=== PATIENT | female | born 1940 | race Caucasian/White ===

== ENCOUNTER 2019-04-21 18:54 | Inpatient (IN) ==
[2019-04-21 19:19] LABS: Basophils % 0.3 % (0.1-2.0); Eosinophils % 0.6 % (0.1-12.0); Lymphocytes # 2.4 K/mm3 (0.7-4.5); Lymphocytes % 35.3 % (10-50); Mean Corpuscular HGB Conc 32.6 g/dL (31.8-35.4); Mean Corpuscular Volume 97.2 fl (81-99); Mean Platelet Volume 9.3 fl (7.4-10.4); Monocytes # 0.6 K/mm3 (0.1-1.0); Neutrophils # 3.8 K/mm3 (1.8-7.8); Neutrophils % 55.8 % (37.0-80.0); Platelet Count 197 K/mm3 (142-424); Red Blood Count 5.04 M/mm3 (4.20-5.40); Red Cell Distribution Width 12.9 % (11.5-17.5); White Blood Count 6.8 K/mm3 (4.8-10.8)
[2019-04-21 19:28] LABS: Anion Gap 12.9 mEq/L (5-15); Calcium 9.4 mg/dL (8.5-10.1)
--- NOTE | 2019-04-21 20:05 | Emergency Department Note ---
ED Disposition Clinical Impression: Precordial chest pain Disposition: Admitted as Observation Condition on Discharge: Good - Critical Care Critical Care Time: No Attestation: On 04/21/19, the high probability of a clinically significant, sudden or life threatening deterioration of the following system(s) required my full and direct attention, intervention and personal management. The time I documented below is in addition to time spent performing reported procedures but includes the following listed in this critical care notation. Medical Decision Making - Jorge Inquiry Pt receiving controlled substance: No Vital Signs: 04/21/19 18:57 04/21/19 21:09 Temperature 98.0 F Temperature Source Oral Pulse Rate [Right] 71 71 Respiratory Rate 18 Blood Pressure [Right Arm] 147/78 H 147/82 H Blood Pressure Mean [Right Arm] 101 103 Blood Pressure Source [Right Arm] Automatic Cuff Automatic Cuff Blood Pressure Position [Right Arm] Supine Sitting 02 Sat by Pulse Oximetry 96 96 Oxygen Delivery Method Room Air Room Air - Lab Data Lab Results 04/21/19 19:05: WBC 6.8, RBC 5.04, Hgb 16.0, Hct 49.0 H, MCV 97.2, MCH 31.7 H, MCHC 32.6, RDW 12.9, Plt Count 197, MPV 9.3, Neut % (Auto) 55.8, Lymph % (Auto) 35.3, [place] % (Auto) 8.0, Eos % (Auto) 0.6, Baso % (Auto) 0.3, Neut # (Auto) 3.8, Lymph # (Auto) 2.4, [place] # (Auto) 0.6, Eos # (Auto) 0.0, Baso # (Auto) 0.0 04/21/19 19:05: Troponin I 0.02 04/21/19 19:05: Sodium 143, Potassium 3.9, Chloride 106, Carbon Dioxide 28, Anion Gap 12.9, BUN 21 H, Creatinine 0.83, Estimated Creat Clear 38, Estimated GFR 67, Est GFR ( Amer) 81, Glucose 107 H, Calcium 9.4 Result diagrams: 04/21/19 19:05 04/21/19 19:05 Orders (Tests/Meds): ED MEDICATIONS Generic Name Dose Route Start Last Admin Trade Name Freq PRN Reason Stop Dose Admin Nicotine 21 mg 04/21/19 20:45 04/21/19 20:41 Nicoderm 21mg/24hr Patch TD 05/21/19 20:44 21 mg DAILY OLIVIA Administration Sodium Chloride 8 ml 04/21/19 21:02 Sodium Chloride 0.9% 10ml Vial IV 05/21/19 21:01 NEEDED PRN dilute famotidine Sodium Chloride 10 ml 04/21/19 21:02 Saline Flush 10ml Syringe IV 05/21/19 21:01 NEEDED PRN Maintain IV Site Discontinued Medications Generic Name Dose Route Start Last Admin Trade Name Ruiz PRN Reason Stop Dose Admin Aspirin 324 mg 04/21/19 19:11 04/21/19 19:15 Aspirin 81mg Chewable Tablet PO 04/21/19 19:12 243 mg ONCE ONE Administration Clopidogrel Bisulfate 300 mg 04/21/19 20:41 04/21/19 20:43 Plavix 300mg Tablet PO 04/21/19 20:42 300 mg ONCE ONE Administration Famotidine 20 mg 04/21/19 21:02 04/21/19 21:17 Pepcid 20mg/2ml Vial IV 04/21/19 21:03 20 mg ONCE ONE Administration Nitroglycerin 0.4 mg 04/21/19 19:11 04/21/19 19:15 Nitrostat 0.4mg Sl Tablet SL 04/21/19 19:12 1 tab ONCE ONE Administration ORDERS Category Date Time Status Chest XR 2 view (NOT portable) [XR chest 2V] Stat Exams 04/21/19 19:09 Taken - Radiology Data #1 Image(s): Chest Image Reviewed: Yes I reviewed the patient's radiology image COPD, nad - ECG Data Tracing #1 EKG interpreted by Eze Collins MD: Rhythm: sinus Rate: 77 Loco: normal Ectopy: none Conduction: normal ST Segment Changes: none T Wave Changes: none Q Waves: none No evidence of acute ischemia or injury - Physician Consults Physician Consulted: Kwame Time: 20:30 Reason -: Admission Comment/Response: Agrees to admit the patient to the hospital. We discussed the patient's clinical information, including history, exam, laboratory and radiology results and ED course. Per hospital procedure, I will write temporary bridge inpatient orders on the patient. Specific orders requested by the admitting physician: Consult cardiology Additional Consult: Everett Time: 20:35 Reason -: Cardiology Eval/Care Comment/Response: Plavix 300 mg. Continue statin and B-zackery. Aspirin (given). Will likely cath tomorrow. General Adult HPI - General Chief complaint: Chest Pain Stated complaint: Chest Pain Time Seen by Provider: 04/21/19 20:00 Mode of Arrival: Ambulatory Limitations: No Limitations Description of Symptoms (Recalled from ER Triage Doc. by RN): Pt states she started having chest pain this morning, radiating down left arm - History of Present Illness HPI narrative: Patient complains of 2 episodes of chest pain today. The first 1 was present when she awoke at 615 this morning and lasted until about 9. She says she laid down on the bed and it felt like "something went through my head just for 1 second" and then the discomfort went away and she felt fine all day until about 5:00. She had onset of chest pain down her left arm at that time which persisted until she arrived here and was given nitroglycerin by nursing staff. Pain resolved with nitroglycerin and she is currently pain-free. She did not have shortness of breath, nausea, or diaphoresis. She says that she has had 2 heart catheterizations in the past. The most recent was 3 years ago at [facility] and she says it was "clear". She does not have any known heart disease. She does have hypertension, hyperlipidemia, and is a smoker. Father of heart problems. She has had a carotid endarterectomy years ago. States that she has a history of anxiety and is on Xanax and BuSpar. Took Xanax for both episodes and took an 81 mg aspirin this evening as well. - Related Data Home Medications Medication Instructions Recorded Confirmed ALPRAZolam [Xanax 0.25mg tab] 0.25 mg PO TIDP PRN 04/21/19 04/21/19 Albuterol Sulfate [Proair Hfa 2 puffs IH Q4HP PRN 04/21/19 04/21/19 90mcg/puff Inh] Amlodipine Besylate [Amlodipine 5 mg PO DAILY 04/21/19 04/21/19 5mg tab] Atorvastatin Calcium [Atorvastatin 10 mg PO QODHS 04/21/19 04/21/19 10mg Tab] Buspirone HCl [Buspar 5mg tablet] 5 mg PO TID 04/21/19 04/21/19 Gabapentin [Gabapentin 100mg Cap] 100 mg PO HS 04/21/19 04/21/19 Losartan Potassium 50 mg PO DAILY 04/21/19 04/21/19 Montelukast Sodium [Singulair 10mg 10 mg PO PM 04/21/19 04/21/19 tablet] Nebivolol HCl [Bystolic] 5 mg PO DAILY 04/21/19 04/21/19 raNITIdine HCl [Ranitidine HCl] 150 mg PO BID 04/21/19 04/21/19 Allergies Allergy/AdvReac Type Severity Reaction Status Date / Time beef derived (bovine) Allergy Verified 04/21/19 19:09 Penicillins Allergy Verified 04/21/19 19:09 yogart Allergy Uncoded 04/21/19 19:09 [facility] History - Hepatitis A Screen Drug use history?: No High risk sexual behaviors?: No History of sexually transmitted infection?: No Currently employed?: No Childcare worker?: No Do you have indoor plumbing?: Yes Do you have electricity?: Yes Attestation statement:: This patient has been screened for Hepatitis A risk factors. I have reviewed the patient's past medical history: Yes Medical History: Reports:: Carotid Stenosis, Hyperlipidemia, Hypertension Denies:: Diabetes Mellitus Type 1, Diabetes Mellitus Type 2, Internal Pacemaker Laterality Cases: Right: Carpal Tunnel Release Other Surgeries: No: Pacemaker - Social History Smoking Status: Current every day smoker Tobacco Type: cigarettes # Packs/Day (cigarettes): 1 Alcohol Intake: never Occupational Status: retired Family Hx:: Heart Attack ROS Obtained: Yes All systems reviewed & no additional complaints - Constitutional Constitutional: Denies fever(s) - Cardiovascular Cardiovascular: Reports system reviewed and no additional complaints, except as docu, Denies diaphoresis, Reports radiating jaw, neck or arm pain - Respiratory Respiratory: No dyspnea - Gastrointestinal Gastrointestingal: Denies: abdominal pain, nausea, vomiting Physical Exam - General General appearance: alert, in no apparent distress - Head Head exam: atraumatic, normocephalic - Eye Eye exam: Present: normal appearance, EOMI - ENT ENT exam: Present: normal exam, mucous membranes moist - Neck Neck exam: Present: normal inspection, trachea midline - Chest Chest inspection: Present: normal inspection, symmetric chest wall rise - Respiratory Respiratory exam: Present: normal lung sounds bilaterally. Absent: respiratory distress - Cardiovascular Cardiovascular exam: Present: regular rate, normal rhythm, normal heart sounds - Abdominal Exam Abdominal exam: Present: soft, normal bowel sounds. Absent: distention, tenderness - Extremities Exam Extremities exam: Present: normal inspection, full ROM. Absent: calf tenderness - Neurological Exam Neurological exam: Present: alert, oriented X3 - Psychiatric Psychiatric exam: Present: normal affect, normal mood - Skin Skin exam: Present: warm, dry
--- NOTE | 2019-04-21 22:29 | Progress Note ---
Internal Medicine - PN: Subj *Date: 04/21/19 *Time: 22:25 Interval history: This 79-year-old white female is admitted to [facility] after episode of chest pain. The following is the emergency room narrative by Dr. Lemus: "Patient complains of 2 episodes of chest pain today. The first 1 was present when she awoke at 615 this morning and lasted until about 9. She says she laid down on the bed and it felt like "something went through my head just for 1 second" and then the discomfort went away and she felt fine all day until about 5:00. She had onset of chest pain down her left arm at that time which persisted until she arrived here and was given nitroglycerin by nursing staff. Pain resolved with nitroglycerin and she is currently pain-free. She did not have shortness of breath, nausea, or diaphoresis. She says that she has had 2 heart catheterizations in the past. The most recent was 3 years ago at [facility] and she says it was "clear". She does not have any known heart disease. She does have hypertension, hyperlipidemia, and is a smoker. Father of heart problems. She has had a carotid endarterectomy years ago. States that she has a history of anxiety and is on Xanax and BuSpar. Took Xanax for both episodes and took an 81 mg aspirin this evening as well." The patient did admit that she had anxiety during the episode of chest pain prior to hospitalization. The history of smoking and the endarterectomy are significant points, of course, in the history. Exam Vital signs and Labs for Last 24 Hours: Temp Pulse Resp BP Pulse Ox 98.1 F 70 19 128/97 H 96 04/21/19 21:38 04/21/19 21:38 04/21/19 21:38 04/21/19 21:38 04/21/19 21:38 Laboratory Results - last 24 hr 04/21/19 19:05: WBC 6.8, RBC 5.04, Hgb 16.0, Hct 49.0 H, MCV 97.2, MCH 31.7 H, MCHC 32.6, RDW 12.9, Plt Count 197, MPV 9.3, Neut % (Auto) 55.8, Lymph % (Auto) 35.3, [place] % (Auto) 8.0, Eos % (Auto) 0.6, Baso % (Auto) 0.3, Neut # (Auto) 3.8, Lymph # (Auto) 2.4, [place] # (Auto) 0.6, Eos # (Auto) 0.0, Baso # (Auto) 0.0 04/21/19 19:05: Troponin I 0.02 04/21/19 19:05: Sodium 143, Potassium 3.9, Chloride 106, Carbon Dioxide 28, Anion Gap 12.9, BUN 21 H, Creatinine 0.83, Estimated Creat Clear 38, Estimated GFR 67, Est GFR ( Amer) 81, Glucose 107 H, Calcium 9.4 Laboratory Tests 04/21/19 04/21/19 19:05 19:05 Sodium 143 Potassium 3.9 BUN 21 H Creatinine 0.83 Troponin I 0.02 I & O for Last 24 hours: Intake & Output 04/19/19 04/20/19 04/21/19 04/22/19 11:59 11:59 11:59 11:59 Weight 113 lb 7 oz - Constitutional no acute distress (Comfortable at the time of exam.) - *Routine HEENT Exam Head: Present: normocephalic Eye: Present: PERRL ENT: Present: mucous membranes dry (Tongue is coated) - *Routine Neck Exam Present: carotid bruit (On the right, and scar is present) - Routine Chest/Breast/Axilla Exam Chest wall: Absent: tenderness - *Routine Respiratory Exam Present: rales (Some bibasilar rales are noted. Air movement is good) - *Routine Cardiovascular Exam Present: RRR (No ectopics). Absent: murmur - *Routine Abdominal Exam Present: soft. Absent: tenderness - *Routine Extremities Exam Absent: edema - *Routine Neurological Exam Present: alert, oriented X3 Assessment and Plan (1) Arteriosclerotic cardiovascular disease Current visit: Yes Status: Acute Category: Medical Code(s): I25.10 - Atherosclerotic heart disease of [place] coronary artery without angina pectoris (2) Status post carotid endarterectomy Current visit: Yes Status: Acute Category: Surgical Code(s): Z98.890 - Other specified postprocedural states (3) Tobacco abuse Current visit: Yes Status: Acute Category: Medical Code(s): Z72.0 - Tobacco use (4) Anxiety disorder Current visit: Yes Status: Acute Category: Medical Code(s): F41.9 - Anxiety disorder, unspecified - Assessment and plan all Dx Assessment and Plan for all problems:: See orders. Cardiology consult tomorrow.
--- NOTE | 2019-04-22 07:23 | Pharmacy Consult Notes ---
[facility] Pharmacy VTE Monitoring - Patient Demographics Admission date: 04/21/19 Report Date: 04/22/19 Time: 07:23 Allergies/Adverse Reactions: Patient Allergies beef derived (bovine) Allergy (Verified 04/21/19 19:09) Penicillins Allergy (Verified 04/21/19 19:09) yogart Allergy (Uncoded 04/21/19 19:09) Height: 1.65 m Weight: 52.163 kg Patient Problems: Current Active Problems Precordial chest pain (Acute) Arteriosclerotic cardiovascular disease (Acute) Status post carotid endarterectomy (Acute) Tobacco abuse (Acute) Anxiety disorder (Acute) - VTE Risk Labs: VTE Related Lab Results Hgb 16.0 g/dL (12.2-16.2) 04/21/19 19:05 Hct 49.0 % (37.0-47.0) H 04/21/19 19:05 Plt Count 197 K/mm3 (142-424) 04/21/19 19:05 BUN 21 mg/dL (7-18) H 04/21/19 19:05 Creatinine 0.83 mg/dL (0.55-1.02) 04/21/19 19:05 Estimated Creat Clear 38 mL/min (50-200) 04/21/19 19:05 Was VTE Risk Assessment Performed: Yes VTE Score: 2 VTE Risk Level: Very Low Risk Clinical Trial Participant: No - Prophylaxis VTE Prophylaxis Ordered?: Yes Types of VTE Prophylaxis: TEDS Knee High Location of Applied Device: Bilateral Lower Extremeties
--- NOTE | 2019-04-22 08:37 | History & Physical Report ---
*Admission Date: 04/21/19 *Chief complaint: chest pain, palpitations, syncope *History of present illness: Ms. Banks is a 79-year-old female with a history of hypertension, anxiety, IBS, and carotid artery stenosis. She states she has had an irregular heartbeat since she was young and has frequent palpitations. She states yesterday a.m. around 6:00, she began feeling her heart beat irregularly and had a very short syncopal episode. She does have a history of anxiety and took a Xanax and tried to breathe deeply. She states this seemed to help and her heart rhythm returned to normal. She states around 5 PM yesterday evening, she began having left- sided chest pain that radiated into her shoulder and up her neck. She presented to the emergency room for further evaluation and was given nitroglycerin. The chest pain resolved with the nitroglycerin and has not returned. She still has ongoing left shoulder pain. She denies any nausea or diaphoresis. She was short of breath during the episode. She does not have any known coronary disease but she does have hypertension, hyperlipidemia, and is a smoker. Her father did of a heart attack. She had a carotid endarterectomy on the right years ago. [facility] History I have reviewed the patient's past medical history: Yes Medical History: Reports:: Anxiety, Carotid Stenosis, Hyperlipidemia, Hypertension Denies:: Cancer, Diabetes Mellitus Type 1, Diabetes Mellitus Type 2, Internal Pacemaker, MRSA *Have you ever received a pneumonia vaccine?: Yes *Have you received a flu vaccine this season?: No Other Medical History: Reports: Arthritis (bilateral lower extremities, back), Hoarseness, Hormone Therapy (1976 - 1998), Sinus Problems ([place] Allergies), Other (IBS) Laterality Cases: Right: Carpal Tunnel Release Other Surgeries: Yes: Cholecystectomy, Hysterectomy-Total, Other (Right caratoid endarterectomy, rectocele, cystocele). No: Pacemaker Amputation: No Fractures: Yes (Left Rib) - *Social History Educational Level: Attended High School Smoking Status: Current every day smoker Tobacco Type: cigarettes # Packs/Day (cigarettes): 1 Alcohol Intake: never *Occupational Status:: retired Housing: house *Travel in the last 8 weeks: None Family Hx:: Diabetes, Heart Attack, Hypertension Review of Systems - Constitutional Denies chills, Denies fever(s), Denies weakness - Eyes Denies blurry vision, Denies double vision - ENT Reports sore throat, Denies nasal congestion - *Cardiovascular Reports chest pain, Reports shortness of breath, Reports irregular heart rhythm, Reports radiating jaw, neck or arm pain - *Respiratory Reports shortness of breath, Denies cough - *Gastrointestinal Reports abdominal pain (IBS, chronic), Reports loose stools, Denies nausea, Denies vomiting - *Genitourinary Denies difficulty urinating, Denies painful urination - *Musculoskeletal Reports joint pain (left shoulder) - *Neurologic Reports headache(s), Reports fainting, Denies dizziness, Denies weakness Meds Home Medications Medication Instructions Recorded Confirmed Type ALPRAZolam [Xanax 0.25mg tab] 0.25 mg PO TIDP PRN 04/21/19 04/21/19 History Albuterol Sulfate [Proair Hfa 2 puffs IH Q4HP PRN 04/21/19 04/21/19 History 90mcg/puff Inh] Amlodipine Besylate [Amlodipine 5 mg PO DAILY 04/21/19 04/21/19 History 5mg tab] Atorvastatin Calcium [Atorvastatin 10 mg PO QODHS 04/21/19 04/21/19 History 10mg Tab] Buspirone HCl [Buspar 5mg tablet] 7.5 mg PO TID 04/21/19 04/22/19 History Gabapentin [Gabapentin 100mg Cap] 100 mg PO HS 04/21/19 04/21/19 History Losartan Potassium 50 mg PO DAILY 04/21/19 04/21/19 History Montelukast Sodium [Singulair 10mg 10 mg PO PM 04/21/19 04/21/19 History tablet] Nebivolol HCl [Bystolic] 5 mg PO HS 04/21/19 04/22/19 History raNITIdine HCl [Ranitidine HCl] 150 mg PO BID 04/21/19 04/21/19 History Allergies Allergy/AdvReac Type Severity Reaction Status Date / Time beef derived (bovine) Allergy Verified 04/21/19 19:09 Penicillins Allergy Verified 04/21/19 19:09 yogart Allergy Uncoded 04/21/19 19:09 Exam Vital signs and Labs for Last 24 Hours: Temp Pulse Resp BP Pulse Ox 95 F L 72 17 157/79 H 95 04/22/19 08:00 04/22/19 08:00 04/22/19 08:00 04/22/19 08:00 04/22/19 08:00 Laboratory Results - last 24 hr 04/21/19 19:05: WBC 6.8, RBC 5.04, Hgb 16.0, Hct 49.0 H, MCV 97.2, MCH 31.7 H, MCHC 32.6, RDW 12.9, Plt Count 197, MPV 9.3, Neut % (Auto) 55.8, Lymph % (Auto) 35.3, [place] % (Auto) 8.0, Eos % (Auto) 0.6, Baso % (Auto) 0.3, Neut # (Auto) 3.8, Lymph # (Auto) 2.4, [place] # (Auto) 0.6, Eos # (Auto) 0.0, Baso # (Auto) 0.0 04/21/19 19:05: Troponin I 0.02 04/21/19 19:05: Sodium 143, Potassium 3.9, Chloride 106, Carbon Dioxide 28, Anion Gap 12.9, BUN 21 H, Creatinine 0.83, Estimated Creat Clear 38, Estimated GFR 67, Est GFR ( Amer) 81, Glucose 107 H, Calcium 9.4 04/22/19 00:22: Troponin I 0.21 H 04/22/19 03:30: Troponin I 0.51 H I & O for Last 24 hours: Intake & Output 04/19/19 04/20/19 04/21/19 04/22/19 11:59 11:59 11:59 11:59 Intake Total 305 / 305 Balance 305 / 305 Weight 115 lb - Constitutional no acute distress - *Routine HEENT Exam Head: Present: normocephalic Eye: Present: EOMI, PERRL ENT: Present: mucous membranes moist - *Routine Neck Exam Present: supple. Absent: lymphadenopathy - *Routine Respiratory Exam Present: decreased breath sounds, CTA bilaterally - *Routine Cardiovascular Exam Present: RRR - *Routine Abdominal Exam Present: soft, normoactive bowel sounds. Absent: tenderness - *Routine Extremities Exam Absent: cyanosis, clubbing, edema - *Routine Skin Exam Present: warm. Absent: rash - *Routine Neurological Exam Present: alert, oriented X3 - Detailed Eye Exam Eyelids: Left normal inspection H&P: Result - Impressions CXR - Coarsening of the bronchovascular markings which may be seen with bronchitis/smoking related lung disease. Possible infiltrate right lower lobe Assessment and Plan (1) Chest pain Current visit: Yes Status: Acute Category: Medical Code(s): R07.9 - Chest pain, unspecified (2) Elevated troponin Current visit: Yes Status: Acute Category: Medical Code(s): R74.8 - Abnormal levels of other serum enzymes (3) Arteriosclerotic cardiovascular disease Current visit: Yes Status: Acute Category: Medical Code(s): I25.10 - Atherosclerotic heart disease of [place] coronary artery without angina pectoris (4) Status post carotid endarterectomy Current visit: Yes Status: Acute Category: Surgical Code(s): Z98.890 - Other specified postprocedural states (5) Tobacco abuse Current visit: Yes Status: Acute Category: Medical Code(s): Z72.0 - Tobacco use (6) Anxiety disorder Current visit: Yes Status: Acute Category: Medical Code(s): F41.9 - Anxiety disorder, unspecified - Assessment and plan all Dx Assessment and Plan for all problems:: Patient's serial troponins have been elevated. Cardiology has been consulted. Patient's chest x-ray questions a pneumonia. Will discuss possible antibiotics with Dr. Puente.
--- NOTE | 2019-04-22 09:27 | Consult Report ---
History of Present Illness Consult date: 04/22/19 Requesting physician: Nazanin Puente Consult reason: chest pain Chief complaint: chest pain Additional Medical History:: 1. Tobacco use, continued, started age 15, discontinued age 20, restarted age 30 and continues to present day. 1 pack/day 2. Carotid artery disease A. Status post right carotid endarterectomy approximately 2011, [place], [place] 3. Hypertension, treated for greater than 10 years A. Blood pressure discrepancy between right and left arm, question subclavian artery stenosis 4. Hyperlipidemia, on statin therapy 5. Family history of coronary artery disease 6. History of anxiety 7. History of diarrhea predominant irritable bowel syndrome History of present illness: Ms. Banks is a 79-year-old female with a history of hypertension, anxiety, IBS, and carotid artery stenosis. She states she has had an irregular heartbeat since she was young and has frequent palpitations. She states yesterday a.m. around 6:00, she began feeling her heart beat irregularly and had a very short syncopal episode. She does have a history of anxiety and took a Xanax and tried to breathe deeply. She states this seemed to help and her heart rhythm returned to normal. She states around 5 PM yesterday evening, she began having left- sided chest pain that radiated into her shoulder and up her neck. She presented to the emergency room for further evaluation and was given nitroglycerin. The chest pain resolved with the nitroglycerin and has not returned. She still has ongoing left shoulder pain. She denies any nausea or diaphoresis. She was short of breath during the episode. She does not have any known coronary disease but she does have hypertension, hyperlipidemia, and is a smoker. Her father did of a heart attack. She had a carotid endarterectomy on the right years ago The above per Orquidea Mcnamara PA-C for Dr. Puente Troponins overnight have returned elevated with highest of 0.51. Again, as iterated above, the patient has not had any further episodes of chest pain. She does have lingering left shoulder pain but attributes this to her known arthritis. Remote history of right carotid endarterectomy approximately 5 years ago. She does relate having 2 prior cardiac caths in the past, the last one by Dr. Chong in [place] with no significant coronary artery disease noted. She does continue to smoke 1 pack/day, she takes cholesterol medication and blood pressure medication in the form of bystolic, losartan and and Norvasc. She does relate a lot of anxiety recently due to an uncle who is dying. EKG shows sinus rhythm with nonspecific ST-T abnormalities. Manual blood pressure left arm 182/100mm Hg, right arm 154/72 mmHg. [facility] History Medical History: Reports:: Anxiety, Carotid Stenosis, Hyperlipidemia, Hypertension Denies:: Cancer, Diabetes Mellitus Type 1, Diabetes Mellitus Type 2, Internal Pacemaker, MRSA *Have you ever received a pneumonia vaccine?: Yes *Have you received a flu vaccine this season?: No Other Medical History: Reports: Arthritis (bilateral lower extremities, back), Hoarseness, Hormone Therapy (1976 - 1998), Sinus Problems ([place] Allergies), Other (IBS) Laterality Cases: Right: Carpal Tunnel Release Other Surgeries: Yes: Cholecystectomy, Hysterectomy-Total, Other (Right caratoid endarterectomy, rectocele, cystocele). No: Pacemaker Amputation: No Fractures: Yes (Left Rib) - *Social History Educational Level: Attended High School Smoking Status: Current every day smoker Tobacco Type: cigarettes # Packs/Day (cigarettes): 1 Alcohol Intake: never *Occupational Status:: retired Housing: house *Travel in the last 8 weeks: None - Psychiatric History Pschychiatric History:: Reports:: Anxiety Family Hx:: Diabetes, Heart Attack, Hypertension Meds Home Medications Medication Instructions Recorded Confirmed Type ALPRAZolam [Xanax 0.25mg tab] 0.25 mg PO TIDP PRN 04/21/19 04/21/19 History Albuterol Sulfate [Proair Hfa 2 puffs IH Q4HP PRN 04/21/19 04/21/19 History 90mcg/puff Inh] Amlodipine Besylate [Amlodipine 5 mg PO DAILY 04/21/19 04/21/19 History 5mg tab] Atorvastatin Calcium [Atorvastatin 10 mg PO QODHS 04/21/19 04/21/19 History 10mg Tab] Buspirone HCl [Buspar 5mg tablet] 7.5 mg PO TID 04/21/19 04/22/19 History Gabapentin [Gabapentin 100mg Cap] 100 mg PO HS 04/21/19 04/21/19 History Losartan Potassium 50 mg PO DAILY 04/21/19 04/21/19 History Montelukast Sodium [Singulair 10mg 10 mg PO PM 04/21/19 04/21/19 History tablet] Nebivolol HCl [Bystolic] 5 mg PO HS 04/21/19 04/22/19 History raNITIdine HCl [Ranitidine HCl] 150 mg PO BID 04/21/19 04/21/19 History Allergies Allergy/AdvReac Type Severity Reaction Status Date / Time beef derived (bovine) Allergy Verified 04/21/19 19:09 Penicillins Allergy Verified 04/21/19 19:09 yogart Allergy Uncoded 04/21/19 19:09 Review of Systems - *Cardiovascular Reports chest pain, Reports shortness of breath with activity - *Respiratory Reports shortness of breath with activity, Denies cough - *Gastrointestinal Reports abdominal pain, Reports loose stools, Denies nausea, Denies vomiting - *Genitourinary Denies blood in urine - *Musculoskeletal Reports joint pain, Reports back pain - *Neurologic Reports headache(s), Reports fainting, Denies dizziness, Denies weakness Exam Vital signs and Labs for Last 24 Hours: Temp Pulse Resp BP Pulse Ox 97.5 F L 72 17 157/79 H 95 04/22/19 09:14 04/22/19 08:00 04/22/19 08:00 04/22/19 08:00 04/22/19 08:00 Laboratory Results - last 24 hr 04/21/19 19:05: WBC 6.8, RBC 5.04, Hgb 16.0, Hct 49.0 H, MCV 97.2, MCH 31.7 H, MCHC 32.6, RDW 12.9, Plt Count 197, MPV 9.3, Neut % (Auto) 55.8, Lymph % (Auto) 35.3, [place] % (Auto) 8.0, Eos % (Auto) 0.6, Baso % (Auto) 0.3, Neut # (Auto) 3.8, Lymph # (Auto) 2.4, [place] # (Auto) 0.6, Eos # (Auto) 0.0, Baso # (Auto) 0.0 04/21/19 19:05: Troponin I 0.02 04/21/19 19:05: Sodium 143, Potassium 3.9, Chloride 106, Carbon Dioxide 28, Anion Gap 12.9, BUN 21 H, Creatinine 0.83, Estimated Creat Clear 38, Estimated GFR 67, Est GFR ( Amer) 81, Glucose 107 H, Calcium 9.4 04/22/19 00:22: Troponin I 0.21 H 04/22/19 03:30: Troponin I 0.51 H I & O for Last 24 hours: Intake & Output 04/19/19 04/20/19 04/21/19 04/22/19 11:59 11:59 11:59 11:59 Intake Total 305 / 305 Balance 305 / 305 Weight 115 lb - *Routine HEENT Exam Head: Present: normocephalic Eye: Present: EOMI, PERRL ENT: Present: mucous membranes moist - *Routine Neck Exam Present: supple, carotid bruit. Absent: JVD - *Routine Respiratory Exam Present: decreased breath sounds, diminished air movement. Absent: accessory muscle use, rales, rhonchi, wheezes - *Routine Cardiovascular Exam Present: RRR, murmur. Absent: gallop, rubs - *Routine Abdominal Exam Present: soft. Absent: tenderness, distended, guarding - *Routine Extremities Exam Absent: edema, calf tenderness - *Routine Neurological Exam Present: alert, oriented X3, moving all extremities Assessment and Plan (1) NSTEMI (non-ST elevated myocardial infarction) Current visit: Yes Status: Acute Category: Medical Code(s): I21.4 - Non-ST elevation (NSTEMI) myocardial infarction (2) Chest pain Current visit: Yes Status: Acute Category: Medical Code(s): R07.9 - Chest pain, unspecified (3) Arteriosclerotic cardiovascular disease Current visit: Yes Status: Acute Category: Medical Code(s): I25.10 - Atherosclerotic heart disease of [place] coronary artery without angina pectoris (4) Status post carotid endarterectomy Current visit: Yes Status: Acute Category: Surgical Code(s): Z98.890 - Other specified postprocedural states (5) Tobacco abuse Current visit: Yes Status: Acute Category: Medical Code(s): Z72.0 - Tobacco use (6) Anxiety disorder Current visit: Yes Status: Acute Category: Medical Code(s): F41.9 - Anxiety disorder, unspecified (7) Hypertension Current visit: Yes Status: Acute Category: Medical Code(s): I10 - Essential (primary) hypertension (8) Hyperlipidemia Current visit: Yes Status: Acute Category: Medical Code(s): E78.5 - Hyperlipidemia, unspecified (9) Cardiac murmur, unspecified Current visit: Yes Status: Acute Category: Medical Code(s): R01.1 - Cardiac murmur, unspecified - Assessment and plan all Dx Assessment and Plan for all problems:: 1. Chest pain with elevated troponins and no acute EKG changes, consistent with non-ST elevation VT. Patient was given 300 mg of Plavix along with aspirin last evening. Patient also continues on beta-zackery and Norvasc therapy. Discussed recommendation for left heart catheterization today per home. Patient and daughter agree to proceed. Risks, benefits and procedure explained. 2. We will obtain an echocardiogram to evaluate left ventricular size, function and cardiac murmur in the aortic area. 3. Will obtain bilateral carotid ultrasound due to carotid bruits and history of right carotid endarterectomy. 4. Patient relates blood pressure discrepancy with right arm lower than left (see HPI), consider peripheral angiogram of the right arm at the time of the cath to assess for subclavian artery stenosis. 5. Patient relates exertional leg fatigue with palpable but decreased pulses in the feet. Concern for peripheral arterial disease. Patient will need further evaluation in the future with ZORA and possible lower extremity angiogram. 6. Further recommendations to follow pending above results.
--- NOTE | 2019-04-22 16:47 | Cardiology Report ---
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 Laterality: Bilateral Study Quality: Good Indications: Carotid bruits, history of RCEA Risk Factors Hypertension: Hyperlipidemia Smoking Surgery/Intervention Endarterectomy: right Doppler Spectral Velocity Analysis ECA (R) 130.00/ cm/sECA (L) 235.00/ cm/s dICA (R) 51.50/16.70 cm/sdICA (L) 69.80/24.50 cm/s Ara (R) 59.60/19.20 cm/smICA (L) 144.00/34.80 cm/s pICA (R) 64.00/16.00 cm/spICA (L) 148.00/48.90 cm/s dCCA (R) 66.20/14.90 cm/sdCCA (L) 68.60/18.40 cm/s pCCA (R) 72.80/13.80 cm/spCCA (L) 70.80/12.40 cm/s Vert (R) 43.00/ cm/sVert (L) 49.60/ cm/s ICA/CCA 0.97 ICA/CCA 2.16 Conclusion Duplex evaluation demonstrates stenosis of the right proximal internal carotid artery <20% with PSV <140 cm/sec, EDV <100 cm/sec, and IC/CC Ratio <4.0. Duplex evaluation demonstrates stenosis of the left proximal internal carotid artery in the range of 50-69% with PSV =140 cm/sec, EDV <100 cm/sec, and IC/CC Ratio <4.0. Duplex evaluation demonstrates antegrade flow of the bilateral Vertebral Arteries. Right thyroidnodules. Consider dedicated thyroid ultrasound. Critical Notification Critical Value: No Electronically signed by : Maximiliano Isaac MD 04/22/2019 16:47:20
[2019-04-23 06:37] LABS: Basophils % 0.2 % (0.1-2.0); Eosinophils % 0.5 % (0.1-12.0); Hematocrit 45.3 % (37.0-47.0); Hemoglobin 15.3 g/dL (12.2-16.2); Lymphocytes # 1.1 K/mm3 (0.7-4.5); Lymphocytes % 14.4 % (10-50); Mean Corpuscular HGB Conc 33.8 g/dL (31.8-35.4); Mean Corpuscular Volume 96.2 fl (81-99); Mean Platelet Volume 8.9 fl (7.4-10.4); Monocytes # 0.6 K/mm3 (0.1-1.0); Monocytes % 8.3 % (1.7-9.3); Neutrophils # 5.8 K/mm3 (1.8-7.8); Neutrophils % 76.6 % (37.0-80.0); Platelet Count 176 K/mm3 (142-424); Red Blood Count 4.71 M/mm3 (4.20-5.40); Red Cell Distribution Width 12.8 % (11.5-17.5); White Blood Count 7.6 K/mm3 (4.8-10.8)
[2019-04-23 06:48] LABS: Anion Gap 12.8 mEq/L (5-15); Calcium 8.9 mg/dL (8.5-10.1)
--- NOTE | 2019-04-23 07:28 | Progress Note ---
Subjective Date: 04/23/19 Time: 07:24 Principal diagnosis: NSTEMI Interval history: 79-year-old white female in bed in no acute distress. Denies any chest pain, pressure or tightness. Multiple questions answered regarding results of carotid ultrasound, cardiac cath and medication changes. Exam Vital signs and Labs for Last 24 Hours: Temp Pulse Resp BP Pulse Ox 98.4 F 65 16 139/64 92 L 04/23/19 04:00 04/23/19 04:00 04/23/19 04:00 04/23/19 04:00 04/23/19 04:00 Laboratory Results - last 24 hr 04/22/19 15:44: Activated Clotting Time 320 H* 04/23/19 06:14: WBC 7.6, RBC 4.71, Hgb 15.3, Hct 45.3, MCV 96.2, MCH 32.5 H, MCHC 33.8, RDW 12.8, Plt Count 176, MPV 8.9, Neut % (Auto) 76.6, Lymph % (Auto) 14.4, [place] % (Auto) 8.3, Eos % (Auto) 0.5, Baso % (Auto) 0.2, Neut # (Auto) 5.8, Lymph # (Auto) 1.1, [place] # (Auto) 0.6, Eos # (Auto) 0.0, Baso # (Auto) 0.0 04/23/19 06:14: Sodium 141, Potassium 3.8, Chloride 106, Carbon Dioxide 26, Anion Gap 12.8, BUN 15 D, Creatinine 0.70, Estimated Creat Clear 39, Estimated GFR 81, Est GFR ( Amer) 98 D, Glucose 80, Calcium 8.9 I & O for Last 24 hours: Intake & Output 04/20/19 04/21/19 04/22/19 04/23/19 11:59 11:59 11:59 11:59 Intake Total 305 / 305 933 / 933 Output Total 700 / 700 200 / 200 Balance -395 / -395 733 / 733 Weight 115 lb 116 lb 2 oz - *Routine Respiratory Exam Present: CTA bilaterally. Absent: accessory muscle use, rales, rhonchi, wheezes - *Routine Cardiovascular Exam Present: RRR. Absent: murmur, gallop, rubs - *Routine Abdominal Exam Present: soft. Absent: tenderness, distended, guarding - *Routine Extremities Exam Absent: edema, calf tenderness - *Routine Neurological Exam Present: alert, oriented X3, moving all extremities Progress Note: A&P (1) NSTEMI (non-ST elevated myocardial infarction) Status: Acute Current Visit: Yes (2) Chest pain Status: Acute Current Visit: Yes (3) Arteriosclerotic cardiovascular disease Status: Acute Current Visit: Yes (4) Status post carotid endarterectomy Status: Acute Current Visit: Yes (5) Tobacco abuse Status: Acute Current Visit: Yes (6) Anxiety disorder Status: Acute Current Visit: Yes (7) Hypertension Status: Acute Current Visit: Yes (8) Hyperlipidemia Status: Acute Current Visit: Yes (9) Cardiac murmur, unspecified Status: Acute Current Visit: Yes Assessment and Plan for All Diagnoses:: 1. Discontinue amlodipine and switch to verapamil 180 mg daily 2. Discontinue carvedilol and resume patient's home medication of Bystolic 5 mg in the evening 3. Continue dual antiplatelet therapy with aspirin 81 mg daily and Plavix 75 mg daily due to stent placement to right subclavian artery. 4. Coronary artery disease with recommendation for medical management. 5. Non-ST elevation CO due to demand ischemia from hyperdynamic ejection fraction with tacky arrhythmias. Telemetry is revealed no tacky arrhythmias during her hospitalization. 6. Carotid artery disease, stable by ultrasound. 7. Continue losartan home dosing. 8. Continue atorvastatin but increase to 40 mg daily as tolerated. Currently patient takes only 10 mg every other day. 9. Patient can be discharged home from cardiology standpoint with follow-up in 1 to 2 weeks with plans to obtain ZORA for evaluation of PAD/claudication symptom s.
--- NOTE | 2019-04-23 08:39 | Progress Note ---
<Orquidea Mcnamara - Last Filed: 04/23/19 08:36> Internal Medicine - PN: Subj *Date: 04/23/19 *Time: 08:36 Interval history: Patient has not had any chest pain or shortness of breath. She denies any other heart palpitations. She is feeling better this morning and is anxious to go home. She did have a stent placed yesterday. Exam Vital signs and Labs for Last 24 Hours: Temp Pulse Resp BP Pulse Ox 98.6 F 69 17 168/79 H 92 L 04/23/19 08:00 04/23/19 08:00 04/23/19 08:00 04/23/19 08:00 04/23/19 08:00 Laboratory Results - last 24 hr 04/22/19 15:44: Activated Clotting Time 320 H* 04/23/19 06:14: WBC 7.6, RBC 4.71, Hgb 15.3, Hct 45.3, MCV 96.2, MCH 32.5 H, MCHC 33.8, RDW 12.8, Plt Count 176, MPV 8.9, Neut % (Auto) 76.6, Lymph % (Auto) 14.4, [place] % (Auto) 8.3, Eos % (Auto) 0.5, Baso % (Auto) 0.2, Neut # (Auto) 5.8, Lymph # (Auto) 1.1, [place] # (Auto) 0.6, Eos # (Auto) 0.0, Baso # (Auto) 0.0 04/23/19 06:14: Sodium 141, Potassium 3.8, Chloride 106, Carbon Dioxide 26, Anion Gap 12.8, BUN 15 D, Creatinine 0.70, Estimated Creat Clear 39, Estimated GFR 81, Est GFR ( Amer) 98 D, Glucose 80, Calcium 8.9 04/23/19 06:14: Triglycerides 71, Cholesterol 121 L, LDL Cholesterol 66, VLDL Cholesterol 14, HDL Cholesterol 41, Cholesterol/HDL Ratio 3.0 I & O for Last 24 hours: Intake & Output 04/20/19 04/21/19 04/22/19 04/23/19 11:59 11:59 11:59 11:59 Intake Total 305 / 305 1173 / 1173 Output Total 700 / 700 200 / 200 Balance -395 / -395 973 / 973 Weight 115 lb 116 lb 2 oz Radiology Reports for the Last 24 Hours: Carotid U/S 1. Duplex evaluation demonstrates stenosis of the right proximal internal carotid artery <20% with PSV <140 cm/sec, EDV <100 cm/sec, and IC/CC Ratio <4.0. 2. Duplex evaluation demonstrates stenosis of the left proximal internal carotid artery in the range of 50-69% with PSV =140 cm/sec, EDV <100 cm/sec, and IC/CC Ratio <4.0. 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 Successful stenting of the right subclavian artery extending back into the brachiocephalic artery severe disease reduced to 20% with one self-expanding stent - Constitutional no acute distress - *Routine Respiratory Exam Present: decreased breath sounds - *Routine Cardiovascular Exam Present: RRR - *Routine Abdominal Exam Present: soft, normoactive bowel sounds. Absent: tenderness - *Routine Extremities Exam Absent: cyanosis, clubbing, edema - *Routine Skin Exam Present: warm. Absent: rash - *Routine Neurological Exam Present: alert (She), oriented X3 Assessment and Plan (1) NSTEMI (non-ST elevated myocardial infarction) Current visit: Yes Status: Acute Category: Medical Code(s): I21.4 - Non-ST elevation (NSTEMI) myocardial infarction (2) Chest pain Current visit: Yes Status: Acute Category: Medical Code(s): R07.9 - Chest pain, unspecified (3) Arteriosclerotic cardiovascular disease Current visit: Yes Status: Acute Category: Medical Code(s): I25.10 - Atherosclerotic heart disease of [place] coronary artery without angina pectoris (4) Status post carotid endarterectomy Current visit: Yes Status: Acute Category: Surgical Code(s): Z98.890 - Other specified postprocedural states (5) Tobacco abuse Current visit: Yes Status: Acute Category: Medical Code(s): Z72.0 - Tobacco use (6) Anxiety disorder Current visit: Yes Status: Acute Category: Medical Code(s): F41.9 - Anxiety disorder, unspecified (7) Hypertension Current visit: Yes Status: Acute Category: Medical Code(s): I10 - Baylee coello (primary) hypertension (8) Hyperlipidemia Current visit: Yes Status: Acute Category: Medical Code(s): E78.5 - Hyperlipidemia, unspecified (9) Cardiac murmur, unspecified Current visit: Yes Status: Acute Category: Medical Code(s): R01.1 - Cardiac murmur, unspecified - Assessment and plan all Dx Assessment and Plan for all problems:: Cardiology feels she had an NSTEMI due to demand ischemia from the hyperdynamic ejection fraction with tachyarrhythmias. Telemetry revealed no tachyarrhythmias during her hospitalization and they feel she is stable to be discharged home. They recommend to discontinue her amlodipine and switch to verapamil 180 mg daily and to discontinue her carvedilol and resume home medication of Bystolic 5 mg in the evening. She will need to continue with dual antiplatelet therapy with aspirin 81 mg daily and Plavix 75 mg daily due to stent placement to right subclavian artery. <Frank Callahan - Last Filed: 04/23/19 08:52> Internal Medicine - PN: Subj *Date: 04/23/19 *Time: 08:51 Exam Vital signs and Labs for Last 24 Hours: Temp Pulse Resp BP Pulse Ox 98.6 F 69 17 168/79 H 92 L 04/23/19 08:00 04/23/19 08:00 04/23/19 08:00 04/23/19 08:00 04/23/19 08:00 Laboratory Results - last 24 hr 04/22/19 15:44: Activated Clotting Time 320 H* 04/23/19 06:14: WBC 7.6, RBC 4.71, Hgb 15.3, Hct 45.3, MCV 96.2, MCH 32.5 H, MCHC 33.8, RDW 12.8, Plt Count 176, MPV 8.9, Neut % (Auto) 76.6, Lymph % (Auto) 14.4, [place] % (Auto) 8.3, Eos % (Auto) 0.5, Baso % (Auto) 0.2, Neut # (Auto) 5.8, Lymph # (Auto) 1.1, [place] # (Auto) 0.6, Eos # (Auto) 0.0, Baso # (Auto) 0.0 04/23/19 06:14: Sodium 141, Potassium 3.8, Chloride 106, Carbon Dioxide 26, Anion Gap 12.8, BUN 15 D, Creatinine 0.70, Estimated Creat Clear 39, Estimated GFR 81, Est GFR ( Amer) 98 D, Glucose 80, Calcium 8.9 04/23/19 06:14: Triglycerides 71, Cholesterol 121 L, LDL Cholesterol 66, VLDL Cholesterol 14, HDL Cholesterol 41, Cholesterol/HDL Ratio 3.0 I & O for Last 24 hours: Intake & Output 04/20/19 04/21/19 04/22/19 04/23/19 23:59 23:59 23:59 23:59 Intake Total 768 / 768 710 / 710 Output Total 900 / 900 Balance -132 / -132 710 / 710 Weight 113 lb 7 oz 115 lb 116 lb 2 oz Assessment and Plan (1) NSTEMI (non-ST elevated myocardial infarction) Current visit: Yes Status: Acute Category: Medical Code(s): I21.4 - Non-ST elevation (NSTEMI) myocardial infarction (2) Chest pain Current visit: Yes Status: Acute Category: Medical Code(s): R07.9 - Chest pain, unspecified (3) Arteriosclerotic cardiovascular disease Current visit: Yes Status: Acute Category: Medical Code(s): I25.10 - Atherosclerotic heart disease of [place] coronary artery without angina pectoris (4) Status post carotid endarterectomy Current visit: Yes Status: Acute Category: Surgical Code(s): Z98.890 - Other specified postprocedural states (5) Tobacco abuse Current visit: Yes Status: Acute Category: Medical Code(s): Z72.0 - Tobacco use (6) Anxiety disorder Current visit: Yes Status: Acute Category: Medical Code(s): F41.9 - Anxiety disorder, unspecified (7) Hypertension Current visit: Yes Status: Acute Category: Medical Code(s): I10 - Essential (primary) hypertension (8) Hyperlipidemia Current visit: Yes Status: Acute Category: Medical Code(s): E78.5 - Hyperlipidemia, unspecified (9) Cardiac murmur, unspecified Current visit: Yes Status: Acute Category: Medical Code(s): R01.1 - Cardiac murmur, unspecified (10) Subclavian artery stenosis, right Current visit: Yes Status: Acute Category: Medical Code(s): I77.1 - Stricture of artery - Assessment and plan all Dx Assessment and Plan for all problems:: Saw patient, agree with above note. OK for discharge today, f/u with Dr. Puente next week.
--- NOTE | 2019-04-23 15:34 | Cardiology Report ---
APPROVED REPORT EXAM: Comprehensive 2D, Doppler, and color-flow Echocardiogram Forensic Examiner: Francisca Jeter RDCS Ht: 5 ft 5 in Wt: 115lbs BSA: 1.56 BP: 157/79 mmHg Indications: Chest Pain, Shortness of Breath, Hyperlipidemia, Hypertension/HDD smoker COPD 2D Dimensions LVOT 1.80 cm (M/F) 1.5-2.5 M-Mode Dimensions RVDd 1.40 cm (0.9-2.6)LA Diam 3.20 cm (1.9-4.0) LVDd 5.30 cm (3.5-5.7)Ao Diam 3.10 cm (2.0-3.7) LVDs 4.10 cm (3.5-5.7)AV Cusp 1.50 cm (1.5-2.6) IVSd 0.70 cm (0.6-1.1)PWd 0.90 cm (0.6-1.1) EF (Teich) 45.00% FS 22.60% EDV (Teich) 135.00 mLESV (Teich) 74.20 mL LV Diastology E/A Ratio 1.4MED E' 5.75 (< 7 cm/sec) E'/MED E' Ratio14.50 (>14)LAT E' 7.80 (<10 cm/sec) E/LAT E' Ratio 10.70 (>14) Mitral Valve MV E Max Gregorio. 83.40 (40-130 cm/s)MV A Velocity 61.20 (40-130 cm/s) E/A Ratio 1.40 Tricuspid Valve TR P. [id number] cm/sRAP Estimate 10.00 mmHg RVSP 54.00 mmHg Left Ventricle Left atrium is mildly enlarged, left ventricle is normal size, mild concentric left ventricular hypertrophy, visually estimated ejection fraction 55% with no regional wall motion abnormality, grade 2 diastolic dysfunction seen with tissue Doppler evidence of raise left atrial pressure. Right Ventricle Right atrium and right ventricle mildly enlarged with normal contractility. Aortic Valve Aortic valve is minimally thickened and fibrosed, there is no aortic stenosis aortic insufficiency. Mitral Valve Mitral valve leaflets are minimally thickened, there is no mitral stenosis, there is mild mitral regurgitation. Tricuspid Valve There is moderate tricuspid regurgitation noted, calculated right ventricular systolic pressure is 64 mmHg consistent with moderately elevated right ventricular systolic pressure. Pulmonic Valve Pulmonic valve is poorly visualized. Great Vessels Aortic root is normal size. Pericardium No significant pericardial effusion noted. Conclusion 1. Mild biatrial enlargement, normal left ventricular size, mild concentric left ventricular hypertrophy, visually estimated ejection fraction 55% with no regional wall motion abnormality, grade 2 diastolic dysfunction seen with tissue Doppler evidence of raise left atrial pressure. 2. Mildly enlarged right ventricle with normal contractility. 3. Mild mitral and moderate tricuspid regurgitation, calculated right ventricular systolic pressure is 64mmHg consistent with moderately elevated right ventricular systolic pressure. 4. No significant pericardial effusion noted. Electronically signed by : Eder Mera, 04/23/2019 15:33:44
--- NOTE | 2019-04-24 12:18 | Electrocardiograph Report ---
APPROVED REPORT Exam: Resting ECG HR:77 bpm ECG Measurements Heart Rate 77 AXES AL 158 P 65 QRSd 70 QRS 11 QT 360 T20 QTc 407 <Conclusion> Normal sinus rhythm with sinus arrhythmia Nonspecific ST abnormality Abnormal ECG Electronically signed by : Janes Naranjo, 04/24/2019 12:18:13
--- NOTE | 2019-04-25 22:07 | Discharge Summary ---
General - General Admission date:: 04/22/19 Discharge date: 04/23/19 HPI HPI: Ms. Banks is a 79-year-old female with a history of hypertension, anxiety, IBS, and carotid artery stenosis. She states she has had an irregular heartbeat since she was young and has frequent palpitations. She states yesterday a.m. around 6:00, she began feeling her heart beat irregularly and had a very short syncopal episode. She does have a history of anxiety and took a Xanax and tried to breathe deeply. She states this seemed to help and her heart rhythm returned to normal. She states around 5 PM yesterday evening, she began having left- sided chest pain that radiated into her shoulder and up her neck. She presented to the emergency room for further evaluation and was given nitroglycerin. The chest pain resolved with the nitroglycerin and has not returned. She still has ongoing left shoulder pain. She denies any nausea or diaphoresis. She was short of breath during the episode. She does not have any known coronary disease but she does have hypertension, hyperlipidemia, and is a smoker. Her father did of a heart attack. She had a carotid endarterectomy on the right years ago. Hospital Course Hospital Course: The patient had a chest x-ray showing coarsening of the bronchovascular markingsWhich may be seen with bronchitis. There was also a possible infiltrate in the right lower lobe. The patient's serial troponins were elevated, therefore cardiology was consulted. It was felt she had an NSTEMI, therefore cardiology recommended a heart cath. 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 She also had severe right subclavian artery stenosis and therefore had stenting to the right subclavian artery extending back into the brachiocephalic artery. Cardiology recommended medical management for coronary disease and they felt she would benefit from verapamil combined with beta-blockers for her apical hypertrophic obstructive cardiomyopathy and hypertensive heart. They also recommended dual antiplatelet therapy. The patient had a carotid ultrasound showing less than 20% stenosis on the right and 50 to 69% stenosis on the left. It also showed right thyroid nodules, therefore radiology felt the patient should have a thyroid ultrasound. She had an echocardiogram showing mild biatrial enlargement, mild left ventricular hypertrophy, an ejection fraction of 55%, grade 2 diastolic dysfunction, and a moderately elevated right ventricular sys tolic pressure. The patient tolerated all procedures well and cardiology felt she could be discharged home. They recommended to discontinue her amlodipine and switch her to verapamil 180 mg daily. They also wanted to discontinue her carvedilol and resume her home medication of Bystolic 5 mg every evening. They recommended dual antiplatelet therapy due to the stent placed in the right subclavian artery. They will follow-up with the patient in 1 to 2 weeks. Objective Vital signs: Temp Pulse Resp BP Pulse Ox 98.6 F 69 17 168/79 H 92 L 04/23/19 08:00 04/23/19 08:00 04/23/19 08:00 04/23/19 08:00 04/23/19 08:00 Narrative: - Constitutional no acute distress - *Routine HEENT Exam Head: Present: normocephalic Eye: Present: EOMI, PERRL ENT: Present: mucous membranes moist - *Routine Neck Exam Present: supple. Absent: lymphadenopathy - *Routine Respiratory Exam Present: decreased breath sounds, CTA bilaterally - *Routine Cardiovascular Exam Present: RRR - *Routine Abdominal Exam Present: soft, normoactive bowel sounds. Absent: tenderness - *Routine Extremities Exam Absent: cyanosis, clubbing, edema - *Routine Skin Exam Present: warm. Absent: rash - *Routine Neurological Exam Present: alert, oriented X3 DS: Diagnosis - Discharge Diagnosis (1) NSTEMI (non-ST elevated myocardial infarction) Status: Acute (2) Chest pain Status: Acute (3) Arteriosclerotic cardiovascular disease Status: Acute (4) Status post carotid endarterectomy Status: Acute (5) Tobacco abuse Status: Acute (6) Anxiety disorder Status: Acute (7) Hypertension Status: Acute (8) Hyperlipidemia Status: Acute (9) Cardiac murmur, unspecified Status: Acute (10) Subclavian artery stenosis, right Status: Acute Discharge Plan - Patient Discharge Instructions ACTIVITY: Continue current activity DIET: continue same diet Patient Instructions: DI for Heart Attack, High Blood Pressure, Heart-Healthy Diet, DI for Cardiac Catheterization, DI for Surgical Site Infection, How to Quit Smoking - Follow up Plan Follow up with: Nazanin Puente MD [Staff Physician] - 05/03/19 1:15 pm Sarbjit Floyd MD [Staff Physician] - 05/05/19 9:50 am Disposition: Home, Self-Shelter Medications: Home Medications Medication Instructions Recorded Confirmed Type ALPRAZolam [Xanax 0.25mg tab] 0.25 mg PO TIDP PRN 04/21/19 04/21/19 History Albuterol Sulfate [Proair Hfa 2 puffs IH Q4HP PRN 04/21/19 04/21/19 History 90mcg/puff Inh] Atorvastatin Calcium [Atorvastatin 10 mg PO QODHS 04/21/19 04/21/19 History 10mg Tab] Buspirone HCl [Buspar 5mg tablet] 7.5 mg PO TID 04/21/19 04/22/19 History Gabapentin [Gabapentin 100mg Cap] 100 mg PO HS 04/21/19 04/21/19 History Losartan Potassium 50 mg PO DAILY 04/21/19 04/21/19 History Montelukast Sodium [Singulair 10mg 10 mg PO PM 04/21/19 04/21/19 History tablet] Nebivolol HCl [Bystolic] 5 mg PO HS 04/21/19 04/22/19 History raNITIdine HCl [Ranitidine HCl] 150 mg PO BID 04/21/19 04/21/19 History Aspirin [Aspirin 81mg EC Tab] 81 mg PO DAILY #30 tablet. 04/23/19 Rx Clopidogrel Bisulfate [Plavix 75mg 75 mg PO DAILY #30 tab 04/23/19 Rx Tab] Verapamil HCl [Verapamil ER] 180 mg PO DAILY #30 tablet.er 04/23/19 Rx Prescriptions/Medication Reconciliation: New Verapamil HCl [Verapamil ER] 180 mg PO DAILY #30 tablet.er Aspirin [Aspirin 81mg EC Tab] 81 mg PO DAILY #30 tablet. Clopidogrel Bisulfate [Plavix 75mg Tab] 75 mg PO DAILY #30 tab Continued Montelukast Sodium [Singulair 10mg tablet] 10 mg PO PM Albuterol Sulfate [Proair Hfa 90mcg/puff Inh] 2 puffs IH Q4HP PRN PRN Reason: Shortness Of Breath Or Wheezing Nebivolol HCl [Bystolic] 5 mg PO HS Buspirone HCl [Buspar 5mg tablet] 7.5 mg PO TID ALPRAZolam [Xanax 0.25mg tab] 0.25 mg PO TIDP PRN PRN Reason: Anxiety raNITIdine HCl [Ranitidine HCl] 150 mg PO BID Losartan Potassium 50 mg PO DAILY Gabapentin [Gabapentin 100mg Cap] 100 mg PO HS Atorvastatin Calcium [Atorvastatin 10mg Tab] 10 mg PO QODHS Discontinued Amlodipine Besylate [Amlodipine 5mg tab] 5 mg PO DAILY - Problem Reconciliation Problems Reviewed?: Yes
== END 2019-04-23 10:15 | disposition home or self-care (01) | DRG 253 ==
LOC: ER 18:54 → 2ND 18:54
PROVIDERS: ADMIT Family Medicine; ATTEND Family Medicine
CPT/HCPCS: 36415; 37236; 71020; 71046; 80048; 80061; 84484; 85025; 85347; 93005; 93306; 93458; 93880; 96374; 99152; 99153; 99284; C1725; C1760; C1769; C1876; C1894; G0378; J1644; Q9967

== ENCOUNTER → 2019-05-03 12:15 | Outpatient (CLI) | payer MEDICARE, SELFPAY ==
[2019-05-03 12:46] LABS: Basophils % 0.3 % (0.1-2.0); Eosinophils # 0.1 K/mm3 (0.0-0.4); Eosinophils % 0.9 % (0.1-12.0); Hematocrit 46.2 % (37.0-47.0); Lymphocytes % 26.4 % (10-50); Mean Corpuscular HGB Conc 30.2 g/dL (31.8-35.4); Mean Corpuscular Hemoglobin 29.8 pg (27.0-31.2); Mean Corpuscular Volume 98.6 fl (81-99); Mean Platelet Volume 8.9 fl (7.4-10.4); Monocytes # 0.6 K/mm3 (0.1-1.0); Monocytes % 8.1 % (1.7-9.3); Neutrophils # 4.9 K/mm3 (1.8-7.8); Neutrophils % 64.3 % (37.0-80.0); Platelet Count 266 K/mm3 (142-424); Red Blood Count 4.69 M/mm3 (4.20-5.40); Red Cell Distribution Width 13.5 % (11.5-17.5); White Blood Count 7.6 K/mm3 (4.8-10.8)
[2019-05-03 14:40] LABS: Anion Gap 14.9 mEq/L (5-15); Blood Urea Nitrogen 17 mg/dL (7-18); Calcium 9.4 mg/dL (8.5-10.1); Carbon Dioxide 27 mmol/L (21.0-32.0); Chloride 105 mmol/L (98-107); Estimated Glomerular Filt Rate 70 ml/min (>60); GFR (African American) 84 ML/MIN (>60); Glucose 93 mg/dL (74-106); Potassium 3.9 mmoL/L (3.5-5.1); Sodium 143 mmol/L (136-145)
[2019-05-03 19:19] LABS: Free T4 (Free Thyroxine) 1.15 ng/dl (0.76-1.46); Thyroid Stimulating Hormone 2.19 uIU/ml (0.358-3.740)
[2019-05-05 16:44] LABS: Vitamin B12 1758 pg/mL (232-1245)
== END ==
PROVIDERS: Visit Provider Internal Medicine
DX: I25.2 Old myocardial infarction (principal); I25.10 Atherosclerotic heart disease of native coronary artery without angina pectoris; Z78.0 Asymptomatic menopausal state; Z23 Encounter for immunization; Z98.890 Other specified postprocedural states; Z79.899 Other long term (current) drug therapy
CPT/HCPCS: 36415; 80048; 82607; 84439; 84443; 85025

== ENCOUNTER → 2019-05-12 09:35 | Outpatient (CLI) | payer MEDICARE, SELFPAY ==
[2019-05-12 10:07] LABS: Basophils % 0.2 % (0.1-2.0); Eosinophils # 0.1 K/mm3 (0.0-0.4); Eosinophils % 1.3 % (0.1-12.0); Hematocrit 44.5 % (37.0-47.0); Hemoglobin 13.2 g/dL (12.2-16.2); Lymphocytes # 1.6 K/mm3 (0.7-4.5); Lymphocytes % 17.3 % (10-50); Mean Corpuscular HGB Conc 29.8 g/dL (31.8-35.4); Mean Corpuscular Hemoglobin 30.3 pg (27.0-31.2); Mean Corpuscular Volume 101.8 fl (81-99); Mean Platelet Volume 9.6 fl (7.4-10.4); Monocytes # 0.5 K/mm3 (0.1-1.0); Monocytes % 4.8 % (1.7-9.3); Neutrophils # 7.3 K/mm3 (1.8-7.8); Neutrophils % 76.5 % (37.0-80.0); Platelet Count 196 K/mm3 (142-424); Red Blood Count 4.37 M/mm3 (4.20-5.40); Red Cell Distribution Width 13.7 % (11.5-17.5); White Blood Count 9.5 K/mm3 (4.8-10.8)
[2019-05-12 11:07] LABS: Anion Gap 9.6 mEq/L (5-15); Blood Urea Nitrogen 15 mg/dL (7-18); Calcium 8.8 mg/dL (8.5-10.1); Carbon Dioxide 30 mmol/L (21.0-32.0); Chloride 107 mmol/L (98-107); Creatinine,Serum 0.69 mg/dL (0.55-1.02); Estimated Glomerular Filt Rate 82 ml/min (>60); GFR (African American) 100 ML/MIN (>60); Glucose 124 mg/dL (74-106); Potassium 3.6 mmoL/L (3.5-5.1); Sodium 143 mmol/L (136-145)
[2019-05-12 11:51] LABS: Microscopic, Urine URINE MICROSCOPIC (MICROSCOPIC)
[2019-05-12 12:00] LABS: Appearance,Urine CLEAR (Clear); Bilirubin,Urine Negative (Negative); Blood, Urine 3+ (Negative); Color,Urine YELLOW (Yellow); Glucose,Urine (UA) Negative (Negative); Ketones,Urine Negative (Negative); Leukocyte Esterase,Urine 2+ (Negative); Nitrate,Urine POSITIVE (Negative); PH,Urine 6.5 (5.0-8.5); Protein,Urine Negative (Negative); Specific Gravity, Urine 1.015 (1.005-1.030)
[2019-05-12 12:10] LABS: RBC,Urine 20-50 #/hpf (0-3); WBC,Urine 50-100 #/hpf (0-3)
[2019-05-12 12:11] LABS: Bacteria,Urine 3+ /lpf
== END ==
PROVIDERS: Visit Provider Nurse Practitioner Family
DX: E78.5 Hyperlipidemia, unspecified (principal); I10 Essential (primary) hypertension; I25.10 Atherosclerotic heart disease of native coronary artery without angina pectoris; I27.20 Pulmonary hypertension, unspecified; I42.1 Obstructive hypertrophic cardiomyopathy; I48.91 Unspecified atrial fibrillation; I65.29 Occlusion and stenosis of unspecified carotid artery; I77.1 Stricture of artery; R07.9 Chest pain, unspecified; Z72.0 Tobacco use; Z98.890 Other specified postprocedural states; R82.90 Unspecified abnormal findings in urine
CPT/HCPCS: 36415; 80048; 81001; 85025; 87086; 87088; 87186

== ENCOUNTER 2019-07-25 23:43 | Inpatient (IN) ==
[2019-07-26 00:16] LABS: Microscopic, Urine URINE MICROSCOPIC (MICROSCOPIC)
[2019-07-26 00:17] LABS: Basophils % 0.3 % (0.1-2.0); Eosinophils # 0.1 K/mm3 (0.0-0.4); Eosinophils % 1.2 % (0.1-12.0); Hematocrit 26.7 % (37.0-47.0); Lymphocytes # 1.6 K/mm3 (0.7-4.5); Mean Corpuscular HGB Conc 29.8 g/dL (31.8-35.4); Mean Corpuscular Volume 97.9 fl (81-99); Mean Platelet Volume 9.4 fl (7.4-10.4); Monocytes # 0.4 K/mm3 (0.1-1.0); Monocytes % 5.6 % (1.7-9.3); Neutrophils # 5.7 K/mm3 (1.8-7.8); Neutrophils % 72.8 % (37.0-80.0); Platelet Count 303 K/mm3 (142-424); Red Blood Count 2.73 M/mm3 (4.20-5.40); Red Cell Distribution Width 13.3 % (11.5-17.5); White Blood Count 7.8 K/mm3 (4.8-10.8)
[2019-07-26 00:19] LABS: Appearance,Urine CLEAR (Clear); Bilirubin,Urine Negative (Negative); Blood, Urine TRACE-I (Negative); Color,Urine YELLOW (Yellow); Glucose,Urine (UA) Negative (Negative); Ketones,Urine Negative (Negative); Leukocyte Esterase,Urine Negative (Negative); PH,Urine 5.5 (5.0-8.5); Protein,Urine Negative (Negative); Specific Gravity, Urine >= 1.030 (1.005-1.030); Urobilinogen,Urine 0.2 EU/dl (0.2)
--- NOTE | 2019-07-26 00:20 | Emergency Department Note ---
ED Disposition Clinical Impression: Blood loss anemia Abdominal pain Qualifiers: Abdominal location: epigastric Qualified Code(s): R10.13 - Epigastric pain Disposition: Admitted as Observation Condition on Discharge: Good Instructions: DI for Acute Abdomen Referrals: Nazanin Puente MD [Primary Care Provider] - - Critical Care Critical Care Time: No Attestation: On 07/25/19, the high probability of a clinically significant, sudden or life threatening deterioration of the following system(s) required my full and direct attention, intervention and personal management. The time I documented below is in addition to time spent performing reported procedures but includes the following listed in this critical care notation. Medical Decision Making - Medical Records Medical records reviewed: Yes: I reviewed the patient's medical records. - Jorge Inquiry Pt receiving controlled substance: No Vital Signs: 07/25/19 23:57 Temperature 98.1 F Temperature Source Oral Pulse Rate [Left Radial] 69 Respiratory Rate 16 Blood Pressure [Right Arm] 130/59 L Blood Pressure Mean [Right Arm] 82 Blood Pressure Source [Right Arm] Automatic Cuff Blood Pressure Position [Right Arm] Sitting 02 Sat by Pulse Oximetry 96 Oxygen Delivery Method Room Air - Lab Data Lab results reviewed: Yes: I reviewed the patient's lab results. Lab Results 07/26/19 00:00: WBC 7.8, RBC 2.73 L, Hgb 8.0 L, Hct 26.7 L, MCV 97.9, MCH 29.2, MCHC 29.8 L, RDW 13.3, Plt Count 303, MPV 9.4, Neut % (Auto) 72.8, Lymph % (Auto) 20.0, [place] % (Auto) 5.6, Eos % (Auto) 1.2, Baso % (Auto) 0.3, Neut # (Auto) 5.7, Lymph # (Auto) 1.6, [place] # (Auto) 0.4, Eos # (Auto) 0.1, Baso # (Auto) 0.0, ESR 57 H 07/26/19 00:00: Sodium 144, Potassium 3.6, Chloride 107, Carbon Dioxide 25, Anion Gap 15.6 H, BUN 22 H, Creatinine 0.78, Estimated Creat Clear 38, Estimated GFR 72, Est GFR ( Amer) 87, Glucose 181 H, Calcium 8.6, Total Bilirubin 0.2, AST 2 L, ALT 19, Alkaline Phosphatase 97, C-Reactive Protein < 0.2, Total Protein 6.5, Albumin 3.2 L, Globulin 3.3 H, Albumin/Globulin Ratio 1.0 L, Amylase 38, Lipase 193 07/26/19 00:12: Urine Color Yellow, Urine Appearance Clear, Urine pH 5.5, Ur Specific [place] >= 1.030, Urine Protein Negative, Urine Glucose (UA) Negative, Urine Ketones Negative, Urine Blood Trace-i, Urine Nitrate Negative, Urine Bilirubin Negative, Urine Urobilinogen 0.2, Ur Leukocyte Esterase Negative, Urine RBC 5-10, Urine WBC 3-5, Ur Squamous Epith Cells 3-5, Urine Bacteria 1+, Urine Mucus 1+ 07/26/19 01:45: Stool Occult Blood Positive A Result diagrams: 07/26/19 00:00 07/26/19 00:00 Orders (Tests/Meds): ED MEDICATIONS Generic Name Dose Route Start Last Admin Trade Name Freq PRN Reason Stop Dose Admin Sodium Chloride 1,000 mls @ 999 mls/hr 07/26/19 00:15 07/26/19 00:23 Sod Chlor 0.9% 1000ml Bag IV 07/26/19 01:15 999 mls/hr .Q1H1M OLIVIA Administration Sodium Chloride 8 ml 07/26/19 00:41 07/26/19 01:03 Sodium Chloride 0.9% 10ml Vial IV 08/25/19 00:40 8 ml NEEDED PRN Administration dilute pepcid Discontinued Medications Generic Name Dose Route Start Last Admin Trade Name Freq PRN Reason Stop Dose Admin Famotidine 20 mg 07/26/19 00:41 07/26/19 01:03 Pepcid 20mg/2ml Vial IV 07/26/19 00:42 20 mg ONCE ONE Administration Ioversol 75 ml 07/26/19 01:21 07/26/19 01:22 Rad-Optiray 350 100ml Vial IV 07/26/19 01:22 75 ml ONCE ONE Administration Protocol Ketorolac Tromethamine 30 mg 07/26/19 00:41 07/26/19 01:03 Toradol 30mg/Ml Vial IV 07/26/19 00:42 30 mg ONCE ONE Administration Metoclopramide HCl 10 mg 07/26/19 00:41 07/26/19 01:03 Reglan 10mg/2ml Vial IVP 07/26/19 00:42 10 mg ONCE ONE Administration Ondansetron HCl 4 mg 07/26/19 00:09 07/26/19 00:23 Zofran 4mg/2ml Vial IV 07/26/19 00:10 4 mg ONCE ONE Administration Sodium Chloride 10 ml 07/26/19 01:21 07/26/19 01:22 Rad-Saline Flush 10ml Syringe IV 07/26/19 01:22 10 ml ONCE ONE Administration ORDERS Category Date Time Status CT abdomen pelvis w con Stat Cat Scan 07/26/19 00:08 Taken - CT Data CT Scan: Abdomen, Pelvis Time Received: 02:[address] Reviewed: Yes: I have viewed the radiologist's interpretation Preliminary Findings: Abnormal (nonspecific) - Physician Consults Physician Consulted: marilyn Reason -: Admission Nausea/Vomiting/Diarrhea HPI - General Chief complaint: Abdominal Pain Stated complaint: Severe abdominal pain Time Seen by Provider: 07/26/19 00:18 Mode of Arrival: Wheelchair Source of Information: Patient, Relative, Medical Record Limitations: No Limitations Description of Symptoms (Recalled from ER Triage Doc. by RN): pt stated she has had intermitten upper abdominal pain for the last 3 weeks that has gotten worse since last night. - History of Present Illness HPI Narrative: ongoing progressive abd pain over the last few weeks - reports stool dark - last colonoscopy 3 yrs ago - no nsaif complaint: nausea, abdominal pain Onset (ago): day(s) Associated Abdominal Pain: Yes Location of pain: periumbilical Quality: cramping Consistency: intermittent Associated symptoms: denies other symptoms - Related Data Home Medications Medication Instructions Recorded Confirmed ALPRAZolam [Xanax 0.25mg tab] 0.25 mg PO TIDP PRN 04/21/19 07/26/19 Albuterol Sulfate [Proair Hfa 2 puffs IH Q4HP PRN 04/21/19 07/26/19 90mcg/puff Inh] Buspirone HCl [Buspar 5mg tablet] 7.5 mg PO TID 04/21/19 07/26/19 Gabapentin [Gabapentin 100mg Cap] 100 mg PO HS 04/21/19 07/26/19 Losartan Potassium 50 mg PO DAILY 04/21/19 07/26/19 Montelukast Sodium [Singulair 10mg 10 mg PO PM 04/21/19 07/26/19 tablet] atorvastatin 10 mg tablet 10 mg PO DAILY tab 05/05/19 07/26/19 Aspirin [Aspirin 81mg EC Tab] 81 mg PO DAILY 07/26/19 07/26/19 Omeprazole Magnesium [Prilosec Otc 20 mg PO DAILY 07/26/19 07/26/19 20mg Tab] Rivaroxaban [Xarelto] 20 mg PO QPM 07/26/19 07/26/19 Verapamil HCl [Verapamil ER] 180 mg PO BID 07/26/19 07/26/19 Allergies Allergy/AdvReac Type Severity Reaction Status Date / Time beef derived (bovine) Allergy Unknown Verified 05/19/19 11:27 allergy reaction Milk Containing Products Allergy Unknown Verified 05/19/19 11:27 allergy reaction Penicillins Allergy Unknown Verified 05/19/19 11:27 allergy reaction [facility] History - Hepatitis A Screen Drug use history?: No High risk sexual behaviors?: No History of sexually transmitted infection?: No Currently employed?: No Childcare worker?: No Do you have indoor plumbing?: Yes Do you have electricity?: Yes Attestation statement:: This patient has been screened for Hepatitis A risk factors. I have reviewed the patient's past medical history: Yes Medical History: Reports:: Anxiety, Atrial Fibrillation, Carotid Stenosis, Coronary Artery Disease, Heart Murmur, Hyperlipidemia, Hypertension Denies:: Cancer, Diabetes Mellitus Type 1, Diabetes Mellitus Type 2, Internal Pacemaker, MRSA Other Medical History: Reports: Arthritis, Hoarseness, Hormone Therapy, Sinus Problems, Other Laterality Cases: Right: Carpal Tunnel Release Other Surgeries: Yes: Cardiac Catheterization, Cholecystectomy, Coronary Stent, Hysterectomy-Total, Other (Right caratoid endarterectomy, rectocele, cystocele). No: Pacemaker Amputation: No Fractures: Yes (Left Rib) - Social History Smoking Status: Current every day smoker Tobacco Type: cigarettes # Packs/Day (cigarettes): 1 #Yrs smoked (if former smoker): 49 Alcohol Intake: never Substance Use Type: denies use Occupational Status: retired Housing: house - Psychiatric History Pschychiatric History:: Reports:: Anxiety Family Hx:: Diabetes, Heart Attack, Hypertension Comment: Father- of [place]@74 ROS Obtained: Yes All systems reviewed & no additional complaints - Constitutional Constitutional: Denies fever(s) - Eyes Eyes: Denies change in vision - ENT Ears, Nose, Mouth, and Throat: Denies sore throat - Cardiovascular Cardiovascular: Denies chest pain, Denies dyspnea - Respiratory Respiratory: No cough - Gastrointestinal Gastrointestingal: Reports: as per HPI, abdominal pain, diarrhea, black, tarry stools, nausea, vomiting - Genitourinary Female Genitourinary: Denies hematuria - Musculoskeletal Musculoskeletal: Denies joint pain, Denies joint swelling - Integumentary/Breasts Skin/Breast: Denies rash - Neurologic Neurologic: Denies seizure-like activity Physical Exam - General General appearance: alert - Head Head exam: normocephalic - Eye Eye exam: Present: PERRL, EOMI. Absent: scleral icterus - ENT ENT exam: Present: mucous membranes dry - Neck Neck exam: Present: trachea midline - Respiratory Respiratory exam: Present: normal lung sounds bilaterally. Absent: respiratory distress - Cardiovascular Cardiovascular exam: Present: regular rate, systolic murmur, +S4 - Abdominal Exam Abdominal exam: Present: soft, tenderness Abdominal tenderness: Present: epigastrium, moderate - Extremities Exam Extremities exam: Present: full ROM - Neurological Exam Neurological exam: Present: alert, oriented X3, CN II-XII intact - Psychiatric Psychiatric exam: Present: normal affect - Skin Skin exam: Absent: rash
[2019-07-26 00:26] LABS: Alanine Aminotransferase 19 U/L (12-78); Albumin Level 3.2 gm/dL (3.4-5.0); Alkaline Phosphatase 97 U/L (46-116); Amylase 38 U/L (25-115); Anion Gap 15.6 mEq/L (5-15); Aspartate Amino Transferase 2 U/L (15-37); Bilirubin,Total 0.2 mg/dL (0.2-1.0); Blood Urea Nitrogen 22 mg/dL (7-18); Calcium 8.6 mg/dL (8.5-10.1); Carbon Dioxide 25 mmol/L (21.0-32.0); Chloride 107 mmol/L (98-107); Globulin 3.3 gm/dl (1.3-3.2); Glucose 181 mg/dL (74-106); Sodium 144 mmol/L (136-145); Total Protein,Serum 6.5 gm/dL (6.4-8.2)
[2019-07-26 00:30] LABS: C-Reactive Protein < 0.2 mg/dL (0.0-0.9)
[2019-07-26 01:10] LABS: Erythrocyte Sedimentation Rate 57 mm/hr (0-30)
[2019-07-26 01:23] LABS: Bacteria,Urine 1+ /lpf; Mucus,Urine 1+ /lpf
[2019-07-26 06:13] LABS: Basophils % 0.4 % (0.1-2.0); Eosinophils # 0.1 K/mm3 (0.0-0.4); Eosinophils % 1.2 % (0.1-12.0); Lymphocytes # 1.7 K/mm3 (0.7-4.5); Lymphocytes % 25.6 % (10-50); Mean Corpuscular HGB Conc 30.3 g/dL (31.8-35.4); Mean Platelet Volume 10.3 fl (7.4-10.4); Monocytes # 0.5 K/mm3 (0.1-1.0); Neutrophils # 4.3 K/mm3 (1.8-7.8); Neutrophils % 65.8 % (37.0-80.0); Platelet Count 220 K/mm3 (142-424); Red Blood Count 2.32 M/mm3 (4.20-5.40); Red Cell Distribution Width 13.2 % (11.5-17.5); White Blood Count 6.5 K/mm3 (4.8-10.8)
[2019-07-26 06:28] LABS: Hemoglobin 6.8 g/dL (12.2-16.2)
[2019-07-26 06:29] LABS: Hematocrit 22.5 % (37.0-47.0)
[2019-07-26 06:44] LABS: Anion Gap 12.7 mEq/L (5-15)
--- NOTE | 2019-07-26 07:19 | Pharmacy Consult Notes ---
[facility] Pharmacy VTE Monitoring - Patient Demographics Admission date: 07/26/19 Report Date: 07/26/19 Time: 07:19 Allergies/Adverse Reactions: Patient Allergies beef derived (bovine) Allergy (Verified 05/19/19 11:27) Unknown allergy reaction Milk Containing Products Allergy (Verified 05/19/19 11:27) Unknown allergy reaction Penicillins Allergy (Verified 05/19/19 11:27) Unknown allergy reaction Height: 1.65 m Weight: 50.519 kg Patient Problems: Current Active Problems Abdominal pain (Acute) Blood loss anemia (Acute) - VTE Risk Labs: VTE Related Lab Results Hgb 6.8 g/dL (12.2-16.2) L* 07/26/19 06:05 Hct 22.5 % (37.0-47.0) L* 07/26/19 06:05 Plt Count 220 K/mm3 (142-424) D 07/26/19 06:05 BUN 17 mg/dL (7-18) 07/26/19 06:05 Creatinine 0.61 mg/dL (0.55-1.02) D 07/26/19 06:05 Estimated Creat Clear 38 mL/min (50-200) 07/26/19 06:05 Was VTE Risk Assessment Performed: Yes VTE Score: 5 VTE Risk Level: Low Risk Clinical Trial Participant: No - Prophylaxis VTE Prophylaxis Ordered?: Yes Types of VTE Prophylaxis: TEDS Knee High
--- NOTE | 2019-07-26 08:35 | History & Physical Report ---
*Admission Date: 07/26/19 *Chief complaint: Abdominal pain *History of present illness: Ms. Banks is a 79yo WF with history of HTN, HLP, anxiety, asthma, and ASCVD with [place] in April of 2019 at which time she was started on Xarelto. She reports that she started seeing dark stools in early May and began experiencing some intermittent epigastric abdominal pain about 3-4 weeks ago. Additionally, she started with diarrheal stools 3 weeks ago as well as some lightheadedness. She has not had decreased appetite, however, she reports little po intake due to increased abdominal pain when she eats and family notes an associated 20lb. weight loss over the same period of time. She denies any fever, chest pain, SOB. She was brought the [facility] ED for evaluation of her abdominal pain and diarrhea overnight. On arrival, H&H was 8.0/26.7. She was admitted for further evaluation. This morning she is resting comfortably with family at bedside. She denies any abdominal pain, chest pain, nausea or vomiting. She is voiding normally and had not had any stools since admission. CT of the abdomen and pelvis is pending at this time. CBC this am showed H&H had dropped to 6.8/22.5 and 2 units of PRBC were ordered by Dr. Gannon, however, pt continues to refuse transfusion until she has spoken to Dr. Puente. [facility] History Medical History: Reports:: Anxiety, Asthma, Atrial Fibrillation, Carotid Stenosis, Coronary Artery Disease, Heart Murmur, Hyperlipidemia, Hypertension, Myocardial Infarction Denies:: Cancer, Diabetes Mellitus Type 1, Diabetes Mellitus Type 2, Internal Pacemaker, MRSA *Have you ever received a pneumonia vaccine?: Yes *Have you received a flu vaccine this season?: Yes Other Medical History: Reports: Arthritis, Hoarseness, Hormone Therapy, Sinus Problems, Other Laterality Cases: Right: Carpal Tunnel Release Other Surgeries: Yes: Cardiac Catheterization, Cholecystectomy, Coronary Stent, Hysterectomy-Total, Other (Right caratoid endarterectomy, rectocele, cystocele). No: Pacemaker Amputation: No Fractures: Yes (Left Rib) - *Social History Educational Level: Attended High School Smoking Status: Current every day smoker Tobacco Type: cigarettes # Packs/Day (cigarettes): 1 #Yrs smoked (if former smoker): 49 Alcohol Intake: never Substance Use Type: denies use *Occupational Status:: retired Housing: house *Travel in the last 8 weeks: None - Psychiatric History Pschychiatric History:: Reports:: Anxiety Family Hx:: Diabetes, Heart Attack, Hypertension Review of Systems - Constitutional Reports weakness, Reports weight loss, Denies headache(s), Denies increased appetite - Eyes Denies blurry vision, Denies change in vision - ENT Reports dizziness, Denies headache(s), Denies nasal congestion, Denies nasal discharge, Denies post nasal drip, Denies sinus pressure, Denies sore throat - *Cardiovascular Reports lightheadedness, Denies chest pain, Denies shortness of breath, Denies rapid, pounding, or irregular heartbeat - *Respiratory Denies chest congestion, Denies shortness of breath - *Gastrointestinal Reports abdominal pain, Reports change in bowel habits, Reports change in stools, Reports loose stools, Reports loose stools, Reports black, tarry stools, Reports nausea, Denies vomiting blood, Denies vomiting - *Musculoskeletal Denies body aches - *Neurologic Reports dizziness, Denies abnormal speech, Denies headache(s), Denies seizure- like activity - Endocrine Denies rapid, pounding, or irregular heartbeat Meds Home Medications Medication Instructions Recorded Confirmed Type ALPRAZolam [Xanax 0.25mg tab] 0.25 mg PO TIDP PRN 04/21/19 07/26/19 History Albuterol Sulfate [Proair Hfa 2 puffs IH Q4HP PRN 04/21/19 07/26/19 History 90mcg/puff Inh] Buspirone HCl [Buspar 5mg tablet] 7.5 mg PO TID 04/21/19 07/26/19 History Gabapentin [Gabapentin 100mg Cap] 100 mg PO HS 04/21/19 07/26/19 History Losartan Potassium 50 mg PO DAILY 04/21/19 07/26/19 History Montelukast Sodium [Singulair 10mg 10 mg PO PM 04/21/19 07/26/19 History tablet] atorvastatin 10 mg tablet 10 mg PO QODHS tab 05/05/19 07/26/19 History Aspirin [Aspirin 81mg EC Tab] 81 mg PO DAILY 07/26/19 07/26/19 History Dicyclomine HCl [Bentyl 10mg 10 mg PO Q6HP PRN 07/26/19 07/26/19 History capsule] Nebivolol HCl [Bystolic] 5 mg PO PM 07/26/19 07/26/19 History Omeprazole Magnesium [Prilosec Otc 20 mg PO DAILY 07/26/19 07/26/19 History 20mg Tab] Rivaroxaban [Xarelto 10mg tablet] 10 mg PO DAILY 07/26/19 07/26/19 History Verapamil HCl [Verapamil ER] 180 mg PO BID 07/26/19 07/26/19 History Allergies Allergy/AdvReac Type Severity Reaction Status Date / Time beef derived (bovine) Allergy Unknown Verified 05/19/19 11:27 allergy reaction Milk Containing Products Allergy Unknown Verified 05/19/19 11:27 allergy reaction Penicillins Allergy Unknown Verified 05/19/19 11:27 allergy reaction Exam Vital signs and Labs for Last 24 Hours: Temp Pulse Resp BP Pulse Ox 97.6 F 81 18 155/56 H 92 L 07/26/19 07:45 07/26/19 07:45 07/26/19 07:45 07/26/19 07:45 07/26/19 07:45 Laboratory Results - last 24 hr 07/26/19 00:00: WBC 7.8, RBC 2.73 L, Hgb 8.0 L, Hct 26.7 L, MCV 97.9, MCH 29.2, MCHC 29.8 L, RDW 13.3, Plt Count 303, MPV 9.4, Neut % (Auto) 72.8, Lymph % (Auto) 20.0, [place] % (Auto) 5.6, Eos % (Auto) 1.2, Baso % (Auto) 0.3, Neut # (Auto) 5.7, Lymph # (Auto) 1.6, [place] # (Auto) 0.4, Eos # (Auto) 0.1, Baso # (Auto) 0.0, ESR 57 H 07/26/19 00:00: Sodium 144, Potassium 3.6, Chloride 107, Carbon Dioxide 25, Anion Gap 15.6 H, BUN 22 H, Creatinine 0.78, Estimated Creat Clear 38, Estimated GFR 72, Est GFR ( Amer) 87, Glucose 181 H, Calcium 8.6, Total Bilirubin 0.2, AST 2 L, ALT 19, Alkaline Phosphatase 97, C-Reactive Protein < 0.2, Total Protein 6.5, Albumin 3.2 L, Globulin 3.3 H, Albumin/Globulin Ratio 1.0 L, Amylase 38, Lipase 193 07/26/19 00:12: Urine Color Yellow, Urine Appearance Clear, Urine pH 5.5, Ur Specific [place] >= 1.030, Urine Protein Negative, Urine Glucose (UA) Negative, Urine Ketones Negative, Urine Blood Trace-i, Urine Nitrate Negative, Urine Bilirubin Negative, Urine Urobilinogen 0.2, Ur Leukocyte Esterase Negative, Urine RBC 5-10, Urine WBC 3-5, Ur Squamous Epith Cells 3-5, Urine Bacteria 1+, Urine Mucus 1+ 07/26/19 01:45: Stool Occult Blood Positive A 07/26/19 06:05: WBC 6.5, RBC 2.32 L, Hgb 6.8 L*, Hct 22.5 L*, MCV 97.0, MCH 29.4, MCHC 30.3 L, RDW 13.2, Plt Count 220 D, MPV 10.3, Neut % (Auto) 65.8, Lymph % (Auto) 25.6, [place] % (Auto) 7.0, Eos % (Auto) 1.2, Baso % (Auto) 0.4, Neut # (Auto) 4.3, Lymph # (Auto) 1.7, [place] # (Auto) 0.5, Eos # (Auto) 0.1, Baso # (Auto) 0.0 07/26/19 06:05: Sodium 144, Potassium 3.7, Chloride 111 H, Carbon Dioxide 24, Anion Gap 12.7, BUN 17, Creatinine 0.61 D, Estimated Creat Clear 38, Estimated GFR 95, Est GFR ( Amer) 115 D, Glucose 96 D, Calcium 8.0 L I & O for Last 24 hours: Intake & Output 07/23/19 07/24/19 07/25/19 07/26/19 11:59 11:59 11:59 11:59 Intake Total Balance Weight 111 lb 6 oz - Constitutional no acute distress - *Routine HEENT Exam Head: Present: normocephalic, atraumatic ENT: Present: mucous membranes moist - *Routine Neck Exam Present: supple, full ROM. Absent: lymphadenopathy - *Routine Respiratory Exam Present: CTA bilaterally - *Routine Cardiovascular Exam Present: RRR Comments: murmur noted - *Routine Abdominal Exam Comments: BS present x 4, soft, not distended, ttp RLQ and epigastrium - *Routine Extremities Exam Present: full ROM, pulses intact. Absent: edema, calf tenderness - *Routine Neurological Exam Present: alert, oriented X3, moving all extremities, normal speech Assessment and Plan (1) Abdominal pain Current visit: Yes Status: Acute Qualifiers: Abdominal location: epigastric Qualified Code(s): R10.13 - Epigastric pain Category: Medical Code(s): R10.9 - Unspecified abdominal pain (2) Blood loss anemia Current visit: Yes Status: Acute Category: Medical Code(s): D50.0 - Iron deficiency anemia secondary to blood loss (chronic) (3) Anxiety disorder Current visit: No Status: Acute Category: Medical Code(s): F41.9 - Anxiety disorder, unspecified - Assessment and plan all Dx Assessment and Plan for all problems:: Further per Dr. Puente.
--- NOTE | 2019-07-26 14:09 | Progress Note ---
[facility] Anesthesia Checklist - Structural Data Admitted From: Inpatient Planned Operative Procedure/s: egd Consent for Planned Operative Procedure(s) Verified: Yes - Airway Assessment C-Spine Mobility Assessed: Yes TMJ Mobility Assessed: Yes Dentition: Poor Dentition - Neurological Assessment Level of Consciousness: Awake, Alert, Appropriate - Anesthesia Plan Anesthesia Risk discussed: Yes Anesthesia Plan: Verified ASA Class: III Anesthesia Type: MAC [facility] History I have reviewed the patient's past medical history: Yes Medical History: Reports:: Anxiety, Asthma, Atrial Fibrillation, Carotid Stenosis, Coronary Artery Disease, Heart Murmur, Hyperlipidemia, Hypertension, Myocardial Infarction Denies:: Cancer, Diabetes Mellitus Type 1, Diabetes Mellitus Type 2, Internal Pacemaker, MRSA *Have you ever received a pneumonia vaccine?: Yes *Have you received a flu vaccine this season?: Yes Other Medical History: Reports: Arthritis, Hoarseness, Hormone Therapy, Sinus Problems, Other Anesthesia experience/problems:: none Laterality Cases: Right: Carpal Tunnel Release Other Surgeries: Yes: Cardiac Catheterization, Cholecystectomy, Coronary Stent, Hysterectomy-Total, Other (Right caratoid endarterectomy, rectocele, cystocele). No: Pacemaker Amputation: No Fractures: Yes (Left Rib) - *Social History Educational Level: Attended High School Smoking Status: Current every day smoker Tobacco Type: cigarettes # Packs/Day (cigarettes): 1 #Yrs smoked (if former smoker): 49 Alcohol Intake: never Substance Use Type: denies use *Occupational Status:: retired Housing: house *Travel in the last 8 weeks: None - Psychiatric History Pschychiatric History:: Reports:: Anxiety Family Hx:: Diabetes, Heart Attack, Hypertension
--- NOTE | 2019-07-26 14:32 | Procedure Note ---
[facility] Procedure Note Procedure Note:: Upper Endoscopy Procedure Report: Esophagogastroduodenoscopy with cold biopsies Endoscopost: Dinesh Dugan II, MD Referring Physician: Matthew Puente MD Date of Procedure: July 26, 2019 Equipment: Olympus GIF 180 standard upper endoscope Sedation: MAC sedation Indications: Mrs. Banks is a 79-year-old female with a history of coronary artery disease with coronary stent placement in April 2019. She was placed on Xarelto. The patient started seeing darker bowel movements in early May. She also started experiencing some intermittent epigastric abdominal pain approximately 1 month ago. She has had approximately 20 pound weight loss over this period of time. The patient also takes ibuprofen frequently and just discontinued this this week. The patient was admitted with anemia and suspected GI blood loss. On arrival her hemoglobin and hematocrit were 8.0 and 26.7. After rehydration this dropped down to 6.8 and 22.5 and she received 2 units of PRBCs. 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 Procedure: Prior to the procedure, a history and physical exam was performed, and patient's medications and allergies were reviewed. The risks, benefits and alternatives of the sedation and procedure were discussed with the patient. All questions were answered and informed consent was obtained. The patient was brought to the procedure room. Patient identification and proposed procedure were verified by the physician and the nurse. The patient was placed in a left lateral decubitus position and the scope was passed under direct vision. Throughout the procedure, the patient's blood pressure, pulse, and oxygen saturations were monitored continuously. The upper GI endoscopy was accomplished without difficulty. The patient tolerated the procedure well. Findings: The scope was passed directly into the upper esophagus and advanced to the third portion of the duodenum. The post bulbar duodenum and duodenal bulb were normal with normal mucosa and conniventes. There were no ulcerations or erosions within the duodenal bulb. The scope was withdrawn through a normal duodenal bulb and pylorus into the stomach. There was some mild linear reactive gastropathy of the antrum and body. The remainder of the body and fundus of the stomach were grossly normal. Upon retroflexion there was a very small 1 to 2 cm hiatal hernia. There were no Adalid's erosions. 2 biopsies were taken in the antrum and along the lesser curvature for histology to rule out gastritis and/or H pylori. The scope was then withdrawn into the esophagus. There was no evidence of reflux esophagitis. There were no esophageal varices. The remainder of the esophageal mucosa was normal. Impression: 1. Mild linear reactive gastropathy of antrum Plan: There was clearly no source for the patient's bleeding from the upper digestive tract. I do feel that she should have diagnostic colonoscopy based upon the possibility of acute or chronic GI blood loss. If the patient is Hemoccult positive and her colonoscopy is unremarkable, she would then need video capsule enteroscopy. I will follow-up the biopsies.
--- NOTE | 2019-07-26 15:57 | Consult Report ---
*Admission Date: 07/26/19 *Reason for consult:: "GI bleed" *History of present illness: Ms. Banks is a pleasant 79yo WF with history of HTN, HLP, anxiety, asthma, and ASCVD with [place] in April of 2019 at which time she was started on Xarelto. She was admitted with postprandial abdominal pain, dark stools, and anemia overnight. She reports that she started seeing dark stools in early May and began experiencing some intermittent epigastric abdominal pain about 3-4 weeks ago. She does state that she eats black licorice daily. Additionally, she started with diarrheal stools 3 weeks ago as well as some lightheadedness. She has not had decreased appetite, however, she reports little po intake due to increased abdominal pain when she eats and family notes an associated 20lb. weight loss over the same period of time. Surgical consultation was ordered midmorning today. Discussion was held with gastroenterology and she did undergo evaluation with gastroenterology and upper endoscopy which was completely normal. Patient states that she is undergone several colonoscopies in the past and had a colonoscopy by Dr. Matthew Carbajal 3 years ago which was normal. She did have a CT scan done with intravenous contrast without oral contrast upon evaluation in the emergency department which revealed extensive atherosclerotic sclerotic calcifications involving the aorta and mesenteric vessels. Review of Systems - Review of Systems Review of systems:: pertinent systems reviewed and negative unless documented below - *Neurologic Reports dizziness, Reports weakness, Denies abnormal speech, Denies headache(s), Denies seizure-like activity [facility] History Medical History: Reports:: Anxiety, Asthma, Atrial Fibrillation, Carotid Stenosis, Coronary Artery Disease, Heart Murmur, Hyperlipidemia, Hypertension, Myocardial Infarction Denies:: Cancer, Diabetes Mellitus Type 1, Diabetes Mellitus Type 2, Internal Pacemaker, MRSA *Have you ever received a pneumonia vaccine?: Yes *Have you received a flu vaccine this season?: Yes Other Medical History: Reports: Arthritis, Hoarseness, Hormone Therapy, Sinus Problems, Other Anesthesia experience/problems:: none Laterality Cases: Right: Carpal Tunnel Release Other Surgeries: Yes: Cardiac Catheterization, Cholecystectomy, Coronary Stent, Hysterectomy-Total, Other (Right caratoid endarterectomy, rectocele, cystocele). No: Pacemaker Amputation: No Fractures: Yes (Left Rib) - *Social History Educational Level: Attended High School Smoking Status: Current every day smoker Tobacco Type: cigarettes # Packs/Day (cigarettes): 1 #Yrs smoked (if former smoker): 49 Alcohol Intake: never Substance Use Type: denies use *Occupational Status:: retired Housing: house *Travel in the last 8 weeks: None - Psychiatric History Pschychiatric History:: Reports:: Anxiety Family Hx:: Diabetes, Heart Attack, Hypertension Meds Home Medications Medication Instructions Recorded Confirmed Type ALPRAZolam [Xanax 0.25mg tab] 0.25 - 0.5 mg PO Q6HP PRN 04/21/19 07/26/19 History Albuterol Sulfate [Proair Hfa 2 puffs IH Q4HP PRN 04/21/19 07/26/19 History 90mcg/puff Inh] Buspirone HCl [Buspar 5mg tablet] 7.5 mg PO TID 04/21/19 07/26/19 History Gabapentin [Gabapentin 100mg Cap] 100 mg PO HS 04/21/19 07/26/19 History Losartan Potassium 50 mg PO DAILY 04/21/19 07/26/19 History Montelukast Sodium [Singulair 10mg 10 mg PO PM 04/21/19 07/26/19 History tablet] atorvastatin 10 mg tablet 10 mg PO QODHS tab 05/05/19 07/26/19 History Aspirin [Aspirin 81mg EC Tab] 81 mg PO DAILY 07/26/19 07/26/19 History Nebivolol HCl [Bystolic] 5 mg PO PM 07/26/19 07/26/19 History Omeprazole Magnesium [Prilosec Otc 20 mg PO DAILY 07/26/19 07/26/19 History 20mg Tab] Rivaroxaban [Xarelto 20mg Tablet*] 20 mg PO QPMWM 07/26/19 07/26/19 History Verapamil HCl [Verapamil ER] 180 mg PO BID 07/26/19 07/26/19 History Allergies Allergy/AdvReac Type Severity Reaction Status Date / Time beef derived (bovine) Allergy Unknown Verified 05/19/19 11:27 allergy reaction Milk Containing Products Allergy Unknown Verified 05/19/19 11:27 allergy reaction Penicillins Allergy Unknown Verified 05/19/19 11:27 allergy reaction Exam Vital signs and Labs for Last 24 Hours: Temp Pulse Resp BP Pulse Ox 98.1 F 85 15 158/82 H 94 L 07/26/19 15:40 07/26/19 15:40 07/26/19 15:40 07/26/19 15:40 07/26/19 15:40 Laboratory Results - last 24 hr 07/26/19 00:00: WBC 7.8, RBC 2.73 L, Hgb 8.0 L, Hct 26.7 L, MCV 97.9, MCH 29.2, MCHC 29.8 L, RDW 13.3, Plt Count 303, MPV 9.4, Neut % (Auto) 72.8, Lymph % (Auto) 20.0, [place] % (Auto) 5.6, Eos % (Auto) 1.2, Baso % (Auto) 0.3, Neut # (Auto) 5.7, Lymph # (Auto) 1.6, [place] # (Auto) 0.4, Eos # (Auto) 0.1, Baso # (Auto) 0.0, ESR 57 H 07/26/19 00:00: Sodium 144, Potassium 3.6, Chloride 107, Carbon Dioxide 25, An ion Gap 15.6 H, BUN 22 H, Creatinine 0.78, Estimated Creat Clear 38, Estimated GFR 72, Est GFR ( Amer) 87, Glucose 181 H, Calcium 8.6, Total Bilirubin 0.2, AST 2 L, ALT 19, Alkaline Phosphatase 97, C-Reactive Protein < 0.2, Total Protein 6.5, Albumin 3.2 L, Globulin 3.3 H, Albumin/Globulin Ratio 1.0 L, Amylase 38, Lipase 193 07/26/19 00:12: Urine Color Yellow, Urine Appearance Clear, Urine pH 5.5, Ur Sp ecific [place] >= 1.030, Urine Protein Negative, Urine Glucose (UA) Negative, Urine Ketones Negative, Urine Blood Trace-i, Urine Nitrate Negative, Urine Bilirubin Negative, Urine Urobilinogen 0.2, Ur Leukocyte Esterase Negative, Urine RBC 5-10, Urine WBC 3-5, Ur Squamous Epith Cells 3-5, Urine Bacteria 1+, Urine Mucus 1+ 07/26/19 01:45: Stool Occult Blood Positive A 07/26/19 06:05: WBC 6.5, RBC 2.32 L, Hgb 6.8 L*, Hct 22.5 L*, MCV 97.0, MCH 29.4, MCHC 30.3 L, RDW 13.2, Plt Count 220 D, MPV 10.3, Neut % (Auto) 65.8, Lymph % (Auto) 25.6, [place] % (Auto) 7.0, Eos % (Auto) 1.2, Baso % (Auto) 0.4, Neut # (Auto) 4.3, Lymph # (Auto) 1.7, [place] # (Auto) 0.5, Eos # (Auto) 0.1, Baso # (Auto) 0.0 07/26/19 06:05: Sodium 144, Potassium 3.7, Chloride 111 H, Carbon Dioxide 24, Anion Gap 12.7, BUN 17, Creatinine 0.61 D, Estimated Creat Clear 38, Estimated GFR 95, Est GFR ( Amer) 115 D, Glucose 96 D, Calcium 8.0 L 07/26/19 08:48: Blood Type AB Negative, Antibody Screen Negative, Crossmatch (AHG) See Detail 07/26/19 09:15: Blood Type Confirm AB Negative I & O for Last 24 hours: Intake & Output 07/24/19 07/25/19 07/26/19 07/27/19 11:59 11:59 11:59 11:59 Intake Total 324 / 324 Balance 324 / 324 Weight 111 lb 6 oz 111 lb 6.005 oz - *Routine Abdominal Exam Present: soft. Absent: tenderness Results - Labs 07/26/19 06:05 07/26/19 06:05 Laboratory Results - last 24 hr 07/26/19 00:00: WBC 7.8, RBC 2.73 L, Hgb 8.0 L, Hct 26.7 L, MCV 97.9, MCH 29.2, MCHC 29.8 L, RDW 13.3, Plt Count 303, MPV 9.4, Neut % (Auto) 72.8, Lymph % (Auto) 20.0, [place] % (Auto) 5.6, Eos % (Auto) 1.2, Baso % (Auto) 0.3, Neut # (Auto) 5.7, Lymph # (Auto) 1.6, [place] # (Auto) 0.4, Eos # (Auto) 0.1, Baso # (Auto) 0.0, ESR 57 H 07/26/19 00:00: Sodium 144, Potassium 3.6, Chloride 107, Carbon Dioxide 25, Anion Gap 15.6 H, BUN 22 H, Creatinine 0.78, Estimated Creat Clear 38, Estimated GFR 72, Est GFR ( Amer) 87, Glucose 181 H, Calcium 8.6, Total Bilirubin 0.2, AST 2 L, ALT 19, Alkaline Phosphatase 97, C-Reactive Protein < 0.2, Total Protein 6.5, Albumin 3.2 L, Globulin 3.3 H, Albumin/Globulin Ratio 1.0 L, Amylase 38, Lipase 193 07/26/19 00:12: Urine Color Yellow, Urine Appearance Clear, Urine pH 5.5, Ur Specific [place] >= 1.030, Urine Protein Negative, Urine Glucose (UA) Negative, Urine Ketones Negative, Urine Blood Trace-i, Urine Nitrate Negative, Urine Bilirubin Negative, Urine Urobilinogen 0.2, Ur Leukocyte Esterase Negative, Urine RBC 5-10, Urine WBC 3-5, Ur Squamous Epith Cells 3-5, Urine Bacteria 1+, Urine Mucus 1+ 07/26/19 01:45: Stool Occult Blood Positive A 07/26/19 06:05: WBC 6.5, RBC 2.32 L, Hgb 6.8 L*, Hct 22.5 L*, MCV 97.0, MCH 29.4, MCHC 30.3 L, RDW 13.2, Plt Count 220 D, MPV 10.3, Neut % (Auto) 65.8, Lymph % (Auto) 25.6, [place] % (Auto) 7.0, Eos % (Auto) 1.2, Baso % (Auto) 0.4, Neut # (Auto) 4.3, Lymph # (Auto) 1.7, [place] # (Auto) 0.5, Eos # (Auto) 0.1, Baso # (Auto) 0.0 07/26/19 06:05: Sodium 144, Potassium 3.7, Chloride 111 H, Carbon Dioxide 24, Anion Gap 12.7, BUN 17, Creatinine 0.61 D, Estimated Creat Clear 38, Estimated GFR 95, Est GFR ( Amer) 115 D, Glucose 96 D, Calcium 8.0 L 07/26/19 08:48: Blood Type AB Negative, Antibody Screen Negative, Crossmatch (AHG) See Detail 07/26/19 09:15: Blood Type Confirm AB Negative Assessment and Plan (1) Abdominal pain Current visit: Yes Status: Acute Qualifiers: Abdominal location: epigastric Qualified Code(s): R10.13 - Epigastric pain Category: Medical Code(s): R10.9 - Unspecified abdominal pain (2) Blood loss anemia Current visit: Yes Status: Acute Category: Medical Code(s): D50.0 - Iron deficiency anemia secondary to blood loss (chronic) (3) Anxiety disorder Current visit: No Status: Acute Category: Medical Code(s): F41.9 - Anxiety disorder, unspecified - Assessment and plan all Dx Assessment and Plan for all problems:: Patient has had possible melena with Hemoccult positivity and symptomatic anemia. She has also had postprandial abdominal pain and weight loss. Her upper endoscopy by gastroenterology today is unremarkable for any obvious bleeding source. I feel that urgent colonoscopy would not be necessarily warranted as an inpatient due to ongoing anticoagulation and due to the fact that she has had several colonoscopies which have reportedly been unremarkable. Her symptomatology is concerning for possible small bowel etiology. Certainly capsule endoscopy would be a reasonable consideration as an outpatient as recommended by Dr. Dugan. I will start with obtaining a upper GI with small bowel follow-through tomorrow morning to assess for any obvious lesion. Plan to assess her response to transfusion. Possibility of early outpatient continued evaluation may be a potential consideration. Her symptomatology of postprandial abdominal pain and weight loss could be secondary to chronic mesenteric insufficiency.
[2019-07-26 19:16] LABS: Hematocrit 33.2 % (37.0-47.0)
[2019-07-26 19:47] LABS: Hemoglobin 10.4 g/dL (12.2-16.2)
[2019-07-27 06:04] LABS: Basophils % 0.4 % (0.1-2.0); Eosinophils # 0.3 K/mm3 (0.0-0.4); Eosinophils % 4.8 % (0.1-12.0); Hematocrit 31.6 % (37.0-47.0); Hemoglobin 9.9 g/dL (12.2-16.2); Lymphocytes # 1.6 K/mm3 (0.7-4.5); Lymphocytes % 25.9 % (10-50); Mean Corpuscular HGB Conc 31.2 g/dL (31.8-35.4); Mean Corpuscular Volume 93.3 fl (81-99); Mean Platelet Volume 8.9 fl (7.4-10.4); Monocytes # 0.5 K/mm3 (0.1-1.0); Monocytes % 8.7 % (1.7-9.3); Neutrophils # 3.7 K/mm3 (1.8-7.8); Neutrophils % 60.3 % (37.0-80.0); Platelet Count 227 K/mm3 (142-424); Red Blood Count 3.38 M/mm3 (4.20-5.40); Red Cell Distribution Width 14.5 % (11.5-17.5); White Blood Count 6.1 K/mm3 (4.8-10.8)
[2019-07-27 06:10] LABS: Anion Gap 11.3 mEq/L (5-15)
--- NOTE | 2019-07-27 09:01 | Progress Note ---
Internal Medicine - PN: Subj *Date: 07/27/19 *Time: 08:57 Interval history: She has been comfortable. Her regular medications including blood pressure medications have not been reordered thus her blood pressure is running high. A small bowel follow-through has been ordered. That is to be performed this morning but I would like to get some blood pressure medications into her before she goes down for that. Her hemoglobin is just below 10 this morning. Exam Vital signs and Labs for Last 24 Hours: Temp Pulse Resp BP Pulse Ox 97.8 F 79 17 162/89 H 97 07/27/19 07:47 07/27/19 07:47 07/27/19 07:47 07/27/19 07:47 07/27/19 07:47 Laboratory Results - last 24 hr 07/26/19 08:48: Blood Type AB Negative, Antibody Screen Negative, Crossmatch (AHG) See Detail 07/26/19 09:15: Blood Type Confirm AB Negative 07/26/19 19:03: Hgb 10.4 L D, Hct 33.2 L 07/27/19 05:48: Sodium 143, Potassium 3.3 L, Chloride 108 H, Carbon Dioxide 27, Anion Gap 11.3, BUN 11 D, Creatinine 0.58, Estimated Creat Clear 38, Estimated GFR 101, Est GFR ( Amer) 122, Glucose 87, Calcium 8.0 L 07/27/19 05:48: WBC 6.1, RBC 3.38 L D, Hgb 9.9 L, Hct 31.6 L, MCV 93.3, MCH 29.2, MCHC 31.2 L, RDW 14.5, Plt Count 227, MPV 8.9, Neut % (Auto) 60.3, Lymph % (Auto) 25.9, [place] % (Auto) 8.7, Eos % (Auto) 4.8, Baso % (Auto) 0.4, Neut # (Auto) 3.7, Lymph # (Auto) 1.6, [place] # (Auto) 0.5, Eos # (Auto) 0.3, Baso # (Auto) 0.0 I & O for Last 24 hours: Intake & Output 07/24/19 07/25/19 07/26/19 07/27/19 11:59 11:59 11:59 11:59 Intake Total 93 / 93 1564 / 1564 Output Total 1275 / 1275 Balance 289 / 289 Weight 111 lb 6 oz 112 lb 8 oz - Constitutional no acute distress - *Routine HEENT Exam Eye: Present: EOMI, PERRL, normal accommodation. Absent: conjunctival icterus ENT: Present: mucous membranes moist - Routine Chest/Breast/Axilla Exam Chest wall: Absent: tenderness - *Routine Respiratory Exam Present: CTA bilaterally - *Routine Cardiovascular Exam Present: RRR - *Routine Abdominal Exam Present: soft. Absent: tenderness - *Routine Extremities Exam Present: edema (Trace) - *Routine Neurological Exam Present: alert, oriented X3 Assessment and Plan (1) Abdominal pain Current visit: Yes Status: Acute Qualifiers: Abdominal location: epigastric Qualified Code(s): R10.13 - Epigastric pain Category: Medical Code(s): R10.9 - Unspecified abdominal pain (2) Blood loss anemia Current visit: Yes Status: Acute Category: Medical Code(s): D50.0 - Iron deficiency anemia secondary to blood loss (chronic) (3) Anxiety disorder Current visit: No Status: Acute Category: Medical Code(s): F41.9 - Anxiety disorder, unspecified - Assessment and plan all Dx Assessment and Plan for all problems:: Blood pressure medications are ordered to be given prior to her procedure this morning. She may possibly go home today.
--- NOTE | 2019-07-27 09:09 | Progress Note ---
Subjective Narrative: Patient is without complaints this morning. She had a vigorous response to 2 units of packed red blood cells with a hemoglobin of just below 10 this morning. Exam Vital signs and Labs for Last 24 Hours: Temp Pulse Resp BP Pulse Ox 97.8 F 79 17 162/89 H 97 07/27/19 07:47 07/27/19 07:47 07/27/19 07:47 07/27/19 07:47 07/27/19 07:47 Laboratory Results - last 24 hr 07/26/19 08:48: Blood Type AB Negative, Antibody Screen Negative, Crossmatch (AHG) See Detail 07/26/19 09:15: Blood Type Confirm AB Negative 07/26/19 19:03: Hgb 10.4 L D, Hct 33.2 L 07/27/19 05:48: Sodium 143, Potassium 3.3 L, Chloride 108 H, Carbon Dioxide 27, Anion Gap 11.3, BUN 11 D, Creatinine 0.58, Estimated Creat Clear 38, Estimated GFR 101, Est GFR ( Amer) 122, Glucose 87, Calcium 8.0 L 07/27/19 05:48: WBC 6.1, RBC 3.38 L D, Hgb 9.9 L, Hct 31.6 L, MCV 93.3, MCH 29.2, MCHC 31.2 L, RDW 14.5, Plt Count 227, MPV 8.9, Neut % (Auto) 60.3, Lymph % (Auto) 25.9, [place] % (Auto) 8.7, Eos % (Auto) 4.8, Baso % (Auto) 0.4, Neut # (Auto) 3.7, Lymph # (Auto) 1.6, [place] # (Auto) 0.5, Eos # (Auto) 0.3, Baso # (Auto) 0.0 I & O for Last 24 hours: Intake & Output 07/24/19 07/25/19 07/26/19 07/27/19 11:59 11:59 11:59 11:59 Intake Total 1564 / 1564 Output Total 1275 / 1275 Balance 289 / 289 Weight 111 lb 6 oz 112 lb 8 oz - Constitutional no acute distress Progress Note: A&P (1) Abdominal pain Status: Acute Current Visit: Yes (2) Blood loss anemia Status: Acute Current Visit: Yes (3) Anxiety disorder Status: Acute Current Visit: No Assessment and Plan for All Diagnoses:: She is to undergo a small bowel follow-through today. If this is relatively unremarkable and her hemoglobin remained stable possible discharge home later today with close outpatient follow-up for colonoscopy and capsule endoscopy.
--- NOTE | 2019-07-29 08:55 | Discharge Summary ---
General - General Admission date:: 07/26/19 Discharge date: 07/27/19 HPI HPI: Ms. Banks is a 79yo WF with history of HTN, HLP, anxiety, asthma, and ASCVD with GA in April of 2019 at which time she was started on Xarelto. She reports that she started seeing dark stools in early May and began experiencing some intermittent epigastric abdominal pain about 3-4 weeks ago. Additionally, she started with diarrheal stools 3 weeks ago as well as some lightheadedness. She has not had decreased appetite, however, she reports little po intake due to increased abdominal pain when she eats and family notes an associated 20lb. weight loss over the same period of time. She denies any fever, chest pain, SOB. She was brought the [facility] ED for evaluation of her abdominal pain and diarrhea overnight. On arrival, H&H was 8.0/26.7. She was admitted for fur ther evaluation. Hospital Course Hospital Course: By the time of H&P, she denied any abdominal pain, chest pain, nausea or vomiting. She was voiding normally and had not had any stools since admission. 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 Repeat CBC showed H&H had dropped to 6.8/22.5 and 2 units of PRBC were ordered by Dr. Gannon, however, pt refused transfusion until she had spoken to Dr. Puente. Dr. Puente did speak with the patient and she was transfused with 2 units of packed red blood cells. A surgical consult was ordered. She was also seen in consultation by Dr. Dugan who did an EGD with biopsies. He found mild linear reactive gastropathy of the antrum, but did not find a clear source of the patient's bleeding from the upper digestive tract. He felt she should have a colonoscopy and if this was unremarkable, she would need a video capsule endoscopy. She was also seen by Dr. Sanchez. Her Hemoccult was positive. He felt an urgent colonoscopy would be unnecessary as an inpatient due to ongoing anticoagulation and due to the fact she had had several colonoscopies which were unremarkable. He felt her symptomatology was concerning for possible small bowel etiology. He felt a capsule endoscopy would be a consideration as an outpatient with Dr. Dugan. He ordered an upper GI with a small bowel follow-through. It was essentially a normal study except for a sliding hiatal hernia with gastroesophageal reflux. Her H&H was stable after transfusion. She was stable to be discharged home and will follow-up on an outpatient basis for colonoscopy and capsule endoscopy. Objective Vital signs: Temp Pulse Resp BP Pulse Ox 97.8 F 79 17 162/89 H 97 07/27/19 07:47 07/27/19 07:47 07/27/19 07:47 07/27/19 07:47 07/27/19 07:47 Narrative: - Constitutional no acute distress - *Routine HEENT Exam Head: Present: normocephalic, atraumatic ENT: Present: mucous membranes moist - *Routine Neck Exam Present: supple, full ROM. Absent: lymphadenopathy - *Routine Respiratory Exam Present: CTA bilaterally - *Routine Cardiovascular Exam Present: RRR Comments: murmur noted - *Routine Abdominal Exam Comments: BS present x 4, soft, not distended, ttp RLQ and epigastrium - *Routine Extremities Exam Present: full ROM, pulses intact. Absent: edema, calf tenderness - *Routine Neurological Exam Present: alert, oriented X3, moving all extremities, normal speech Results Labs on day of discharge: Labs from last 24 hours 07/26/19 08:48 Crossmatch (AHG) See Detail DS: Diagnosis - Discharge Diagnosis (1) Abdominal pain Status: Acute (2) Blood loss anemia Status: Acute (3) Anxiety disorder Status: Acute Discharge Plan - Patient Discharge Instructions ACTIVITY: Continue current activity DIET: advance to your usual diet Patient Instructions: Anemia: How Food and Vitamins Can Help, Anemia, DI for Iron Deficiency Anemia-Adult, DI for Chronic Pain -- Adult - Follow up Plan Follow up with: Nazanin Puente MD [Primary Care Provider] - 08/09/19 Disposition: Home, Self-Longterm Medications: Home Medications Medication Instructions Recorded Confirmed Type ALPRAZolam [Xanax 0.25mg tab] 0.25 - 0.5 mg PO Q6HP PRN 04/21/19 07/26/19 History Albuterol Sulfate [Proair Hfa 2 puffs IH Q4HP PRN 04/21/19 07/26/19 History 90mcg/puff Inh] Buspirone HCl [Buspar 5mg tablet] 7.5 mg PO TID 04/21/19 07/26/19 History Gabapentin [Gabapentin 100mg Cap] 100 mg PO HS 04/21/19 07/26/19 History Losartan Potassium 50 mg PO DAILY 04/21/19 07/26/19 History Montelukast Sodium [Singulair 10mg 10 mg PO PM 04/21/19 07/26/19 History tablet] atorvastatin 10 mg tablet 10 mg PO QODHS tab 05/05/19 07/26/19 History Aspirin [Aspirin 81mg EC Tab] 81 mg PO DAILY 07/26/19 07/26/19 History Nebivolol HCl [Bystolic] 5 mg PO PM 07/26/19 07/26/19 History Omeprazole Magnesium [Prilosec Otc 20 mg PO DAILY 07/26/19 07/26/19 History 20mg Tab] Verapamil HCl [Verapamil ER] 180 mg PO BID 07/26/19 07/26/19 History Acetaminophen [Acetaminophen 325mg 650 mg PO Q4HP PRN tab 07/27/19 Rx tab] Ferrous Gluconate [Ferrous 240 mg PO BID #60 tab 07/27/19 Rx Gluconate 240mg Tab] Nicotine [Nicoderm 21mg/24hr 21 mg TD DAILY #30 patch.td24 07/27/19 Rx patch] Prescriptions/Medication Reconciliation: New Ferrous Gluconate [Ferrous Gluconate 240mg Tab] 240 mg PO BID #60 tab Nicotine [Nicoderm 21mg/24hr patch] 21 mg TD DAILY #30 patch.td24 Acetaminophen [Acetaminophen 325mg tab] 650 mg PO Q4HP PRN tab PRN Reason: As Needed For Fever Or Pain Continued atorvastatin 10 mg tablet 10 mg PO QODHS tab Montelukast Sodium [Singulair 10mg tablet] 10 mg PO PM Albuterol Sulfate [Proair Hfa 90mcg/puff Inh] 2 puffs IH Q4HP PRN PRN Reason: Shortness Of Breath Or Wheezing Buspirone HCl [Buspar 5mg tablet] 7.5 mg PO TID ALPRAZolam [Xanax 0.25mg tab] 0.25 - 0.5 mg PO Q6HP PRN PRN Reason: Anxiety Losartan Potassium 50 mg PO DAILY Gabapentin [Gabapentin 100mg Cap] 100 mg PO HS Omeprazole Magnesium [Prilosec Otc 20mg Tab] 20 mg PO DAILY Verapamil HCl [Verapamil ER] 180 mg PO BID Aspirin [Aspirin 81mg EC Tab] 81 mg PO DAILY Nebivolol HCl [Bystolic] 5 mg PO PM Discontinued Rivaroxaban [Xarelto 20mg Tablet*] 20 mg PO QPMWM - Problem Reconciliation Problems Reviewed?: Yes
== END 2019-07-27 13:05 | disposition home or self-care (01) | DRG 392 ==
LOC: ER 23:43 → 2ND 23:43
PROVIDERS: ADMIT Family Medicine; ATTEND Family Medicine
CPT/HCPCS: 36415; 74177; 74245; 80048; 80053; 81001; 82150; 82272; 83690; 85014; 85018; 85025; 85651; 86140; 86850; 88305; 96365; 96375; 99284; G0328; J2405; P9016; Q9967

== ENCOUNTER → 2019-08-30 09:53 | Outpatient (POV) | payer MEDICARE, SELFPAY | PROVIDERS: Visit Provider Nurse Practitioner Family | DX: Z00.00 Encounter for general adult medical examination without abnormal findings (principal) ==

== ENCOUNTER → 2019-08-31 07:00 | Outpatient (CLI) | payer MEDICARE, SELFPAY ==
[2019-09-01 18:33] LABS: Occult Blood,Stool Negative (Negative)
[2019-09-01 18:34] LABS: Occult Blood,Stool Negative (Negative)
== END ==
PROVIDERS: Visit Provider Nurse Practitioner Family
DX: D50.9 Iron deficiency anemia, unspecified (principal)
CPT/HCPCS: 82272; G0328

== ENCOUNTER → 2019-09-01 16:38 | Outpatient (CLI) | payer MEDICARE, SELFPAY ==
[2019-09-01 18:33] LABS: Occult Blood,Stool Negative (Negative)
== END ==
PROVIDERS: Visit Provider Nurse Practitioner Family
DX: D50.9 Iron deficiency anemia, unspecified (principal)
CPT/HCPCS: 82272; G0328

== ENCOUNTER → 2019-09-22 12:44 | Outpatient (CLI) | payer MEDICARE, SELFPAY ==
--- NOTE | 2019-09-22 12:45 | CA_ITS ---
APPROVED REPORT Kitchen Steward/Stewardess: Irish Braxton RVT Laterality: Bilateral Study Quality: Good Indications: due f/u, 50-69% LICA Risk Factors Hypertension: Surgery/Intervention Endarterectomy: right Doppler Spectral Velocity Analysis ECA (R) 61.10/6.00 cm/s ECA (L) 124.00/7.50 cm/s dICA (R) 56.40/15.10 cm/s dICA (L) 85.20/14.30 cm/s Ara (R) 56.00/13.90 cm/s Ara (L) 52.90/17.90 cm/s pICA (R) 47.80/10.60 cm/s pICA (L) 165.20/37.10 cm/s dCCA (R) 65.90/11.50 cm/s dCCA (L) 90.20/13.70 cm/s pCCA (R) 65.00/7.70 cm/s pCCA (L) 85.10/12.00 cm/s Vert (R) 26.30/2.40 cm/s Vert (L) 48.20/13.30 cm/s ICA/CCA 0.90 ICA/CCA 1.83 Findings Study suggests less than 20% stenosis of the right internal cartoid artery unchanged from the 04/22/19 study. 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 Antegrade flow seen bilateral vertebral arteries. Conclusion Study suggests less than 20% stenosis of the right internal cartoid artery unchanged from the 04/22/19 study. 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 Antegrade flow seen bilateral vertebral arteries. Electronically signed by : Hi Locke, 09/22/2019 19:14:58
== END ==
PROVIDERS: PCP Family Medicine; Visit Provider Urology
DX: R42 Dizziness and giddiness; I65.23 Occlusion and stenosis of bilateral carotid arteries
CPT/HCPCS: 93880

== ENCOUNTER 2020-03-25 12:42 | Emergency (ER) | payer MEDICARE, SELFPAY ==
[2020-03-25 12:44] VITALS: BP 144/77; PULSE 67; RESP 18; TEMP 36.7; O2SAT 98; BMI 17.4
--- NOTE | 2020-03-25 12:50 | ECG_ITS ---
APPROVED REPORT Exam: Resting ECG HR:69 bpm ECG Measurements Heart Rate 69 AXES NH 142 P QRSd 74 QRS -13 QT 370 T 31 QTc 396 <Conclusion> Normal sinus rhythm Normal ECG Electronically signed by : Janes Naranjo, 03/26/2020 06:04:01
--- NOTE | 2020-03-25 12:57 | XR_ITS ---
PROCEDURE: XR CHEST PORTABLE CLINICAL HISTORY: palpitation COMPARISON: CR XR CHEST 2V from 04/21/2019 FINDINGS: Mild cardiomegaly without failure. There is a subclavian/brachiocephalic artery stent on right The lungs are clear without infiltrates, suspicious nodules, or pleural effusions. No acute bony abnormalities. IMPRESSION: No acute findings. Dictated by: Maximiliano Isaac MD 03/25/2020 15:11 Maximiliano Isaac MD in [place] 03/25/2020 15:11
[2020-03-25 13:06] LABS: Basophils % 0.4 % (0.1-2.0); Eosinophils # 0.1 K/mm3 (0.0-0.4); Eosinophils % 0.6 % (0.1-12.0); Hematocrit 48.7 % (37.0-47.0); Hemoglobin 16.1 g/dL (12.2-16.2); Lymphocytes # 2.2 K/mm3 (0.7-4.5); Lymphocytes % 26.4 % (10-50); Mean Corpuscular HGB Conc 33.1 g/dL (31.8-35.4); Mean Corpuscular Hemoglobin 33.1 pg (27.0-31.2); Mean Corpuscular Volume 100.1 fl (81-99); Mean Platelet Volume 9.5 fl (7.4-10.4); Monocytes # 0.5 K/mm3 (0.1-1.0); Monocytes % 5.4 % (1.7-9.3); Neutrophils # 5.7 K/mm3 (1.8-7.8); Neutrophils % 67.2 % (37.0-80.0); Platelet Count 171 K/mm3 (142-424); Red Blood Count 4.86 M/mm3 (4.20-5.40); White Blood Count 8.5 K/mm3 (4.8-10.8)
[2020-03-25 13:15] LABS: Potassium 3.8 mmoL/L (3.5-5.1); Sodium 141 mmol/L (136-145)
--- NOTE | 2020-03-25 13:15 | HMH.EDGENADL ---
ED Disposition Clinical Impression: Palpitations, Stress reaction Disposition: Home, Self-Care Condition on Discharge: Good Instructions: DI for Palpitations, DI for Arrhythmias Referrals: Nazanin Puente MD [Primary Care Provider] - Time of Disposition: 14:33 - Critical Care Critical Care Time: No Attestation: On 03/25/20, the high probability of a clinically significant, sudden or life threatening deterioration of the following system(s) required my full and direct attention, intervention and personal management. The time I documented below is in addition to time spent performing reported procedures but includes the following listed in this critical care notation. Medical Decision Making - Medical Records Medical records reviewed: Yes: I reviewed the patient's medical records. - Jorge Inquiry Pt receiving controlled substance: No Vital Signs: 03/25/20 12:44 03/25/20 13:42 03/25/20 14:17 Temperature 98.1 F Temperature Source Oral Pulse Rate [Right] 67 64 64 Respiratory Rate 18 17 15 Blood Pressure [Right Arm] 144/77 H 156/72 H 178/82 H Blood Pressure Mean [Right Arm] 99 100 114 Blood Pressure Source [Right Arm] Automatic Cuff Automatic Cuff Blood Pressure Position [Right Arm] Supine Supine 02 Sat by Pulse Oximetry 98 95 95 Oxygen Delivery Method Room Air - Lab Data Lab Results 03/25/20 12:57: WBC 8.5, RBC 4.86, Hgb 16.1, Hct 48.7 H, MCV 100.1 H, MCH 33.1 H, MCHC 33.1, RDW 13.0, Plt Count 171, MPV 9.5, Neut % (Auto) 67.2, Lymph % (Auto) 26.4, [place] % (Auto) 5.4, Eos % (Auto) 0.6, Baso % (Auto) 0.4, Neut # (Auto) 5.7, Lymph # (Auto) 2.2, [place] # (Auto) 0.5, Eos # (Auto) 0.1, Baso # (Auto) 0.0 03/25/20 12:57: Sodium 141, Potassium 3.8, Chloride 106, Carbon Dioxide 28, Anion Gap 10.8, BUN 18 H, Creatinine 0.90, Estimated Creat Clear 35, Estimated GFR 61, Est GFR ( Amer) 73, Glucose 138 H, Calcium 9.8, Troponin I < 0.01, TSH 1.51 03/25/20 12:57: Free T4 1.16 Result diagrams: 03/25/20 12:57 03/25/20 12:57 Orders (Tests/Meds): ORDERS Category Date Time Status CXR --portable [XR chest portable] Stat Exams 03/25/20 12:57 Taken Troponin I Q3H Lab 03/25/20 16:00 Ordered Troponin I Q3H Lab 03/25/20 19:00 Ordered - ECG Data Tracing #1 Sinus rhythm with ventricular rate of 69 bpm. QRS 74, QTc 396. - MARYURI Score for Non-Stemi Age of Patient: 70-79 years old Heart Rate: 50-69 bpm Systolic Blood Pressure: 140-159 mmHg Serum Creatinine: 0.80-1.19 mg/dl CHF [place] Class: I-No CHF Other Risk Factors: None Non-Stemi Risk Score: 109 Medical Decision Narrative: In summary this is a 80-year-old female presenting to the emergency department with palpitations. Patient is overall well-appearing on arrival to the emergency department. Vital signs are stable. Initial EKG shows sinus rhythm. Concern for cardiac arrhythmia, atrial fibrillation, anemia, electrolyte abnormality, stress response. CBC, CMP, troponin profile, thyroid studies obtained. laboratory results are generally unremarkable. On reassessment patient continues to feel well in the emergency department. Has not had feeling of palpitations or observed arrhythmia on french comber. She has a history of intermittent atrial fibrillation, but her primary care physician believes that the risk of anticoagulation outweighs the benefit. She has had GI bleed. Believe that patient is stable for discharge home today. Counseled on stress reduction and to follow-up with her PCP. Given return precautions for new or worsening symptoms, chest pain, shortness of breath. General Adult HPI - General Chief complaint: Arrhythmia/Palpitations Stated complaint: aFIB Time Seen by Provider: 03/25/20 13:00 Mode of Arrival: Ambulatory Limitations: No Limitations Description of Symptoms (Recalled from ER Triage Doc. by RN): Pt states she has a hx of afib and has recently been experiencing fluttering in her chest. Pt also states she
[2020-03-25 13:16] LABS: Chloride 106 mmol/L (98-107)
[2020-03-25 13:18] LABS: Anion Gap 10.8 mEq/L (5-15); Blood Urea Nitrogen 18 mg/dl (7-17); Carbon Dioxide 28 mmol/L (22.0-30.0); Creatinine Clearance Estimated 35 mL/min (50-200); Estimated Glomerular Filt Rate 61 ml/min (>60); GFR (African American) 73 ML/MIN (>60)
[2020-03-25 13:19] LABS: Calcium 9.8 mg/dl (8.4-10.2); Glucose 138 mg/dl (74-100)
[2020-03-25 13:35] LABS: Troponin I < 0.01 ng/ml (0.00-0.034)
[2020-03-25 13:37] LABS: Free T4 (Free Thyroxine) 1.16 ng/dl (0.78-2.19)
[2020-03-25 13:42] VITALS: BP 156/72; PULSE 64; RESP 17; O2SAT 95
[2020-03-25 13:50] LABS: Thyroid Stimulating Hormone 1.51 uIU/mL (0.465-4.68)
[2020-03-25 14:17] VITALS: BP 178/82; PULSE 64; RESP 15; O2SAT 95
[2020-03-25 14:56] VITALS: BP 154/87; PULSE 65; RESP 17; TEMP 36.7; O2SAT 100
== END 2020-03-25 14:59 | disposition home or self-care (01) ==
PROVIDERS: Emergency Provider Emergency Medicine; PCP Family Medicine
DX: R00.2 Palpitations (principal); F43.0 Acute stress reaction; I48.20 Chronic atrial fibrillation, unspecified; I25.10 Atherosclerotic heart disease of native coronary artery without angina pectoris; I25.2 Old myocardial infarction; I10 Essential (primary) hypertension; E78.5 Hyperlipidemia, unspecified; F17.210 Nicotine dependence, cigarettes, uncomplicated; Z90.49 Acquired absence of other specified parts of digestive tract; Z88.0 Allergy status to penicillin; Z88.2 Allergy status to sulfonamides; Z79.899 Other long term (current) drug therapy
CPT/HCPCS: 71045; 80048; 84439; 84443; 84484; 85025; 93005; 99283

== ENCOUNTER → 2020-04-17 09:25 | Outpatient (CLI) | payer MEDICARE, SELFPAY ==
--- NOTE | 2020-04-17 09:26 | CA_ITS ---
APPROVED REPORT Android Platform Developer: Irish Braxton RVT Laterality: Bilateral Study Quality: Good Indications: Carotid stenosis, Dizziness and Vertigo Risk Factors Hypertension: Hyperlipidemia Smoking Surgery/Intervention Endarterectomy: right Doppler Spectral Velocity Analysis ECA (R) 208.10/9.00 cm/s ECA (L) 196.60/3.00 cm/s dICA (R) 58.40/16.20 cm/s dICA (L) 93.70/25.40 cm/s Ara (R) 68.10/15.10 cm/s Ara (L) 113.80/21.40 cm/s pICA (R) 92.70/19.10 cm/s pICA (L) 177.10/40.50 cm/s dCCA (R) 156.40/22.20 cm/s dCCA (L) 65.80/13.40 cm/s pCCA (R) 88.00/7.50 cm/s pCCA (L) 72.20/11.60 cm/s Vert (R) 23.60/2.80 cm/s Vert (L) 51.70/9.40 cm/s ICA/CCA 0.59 ICA/CCA 2.69 Findings Study suggests less than 20% stenosis of the right internal cartoid artery unchanged from the 09/22/19 study. 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 Antegrade flow seen bilateral vertebral arteries. Bilateral thyroid nodules seen. Conclusion Study suggests less than 20% stenosis of the right internal cartoid artery unchanged from the 09/22/19 study. 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 Antegrade flow seen bilateral vertebral arteries. Bilateral thyroid nodules seen. Consider dedicated thyroid ultrasound for further evaluation Electronically signed by : Maximiliano Isaac MD 04/17/2020 17:04:34
--- NOTE | 2020-04-17 09:26 | CA_ITS ---
APPROVED REPORT EXAM: Comprehensive 2D, Doppler, and color-flow Echocardiogram Guest Relations Agent: Francisca Jeter RDCS Ht: 5 ft 5 in Wt: 106lbs BSA: 1.51 BP: 160/68 mmHg Indications: SOA,PHTN,HTN,HLP,SMOKER 2D Dimensions LVOT 1.90 cm (M/F) 1.5-2.5 M-Mode Dimensions RVDd 1.60 cm (0.9-2.6) LA Diam 3.20 cm (1.9-4.0) LVDd 5.60 cm (3.5-5.7) Ao Diam 3.20 cm (2.0-3.7) LVDs 4.00 cm (3.5-5.7) AV Cusp 1.40 cm (1.5-2.6) IVSd 0.70 cm (0.6-1.1) PWd 0.80 cm (0.6-1.1) EF (Teich) 54.50% FS 28.60% EDV (Teich) 154.00 mL ESV (Teich) 70.00 mL LV Diastology E/A Ratio 1.5 MED E' 9.07 (< 7 cm/sec) E'/MED E' Ratio 10.50 (>14) LAT E' 6.34 (<10 cm/sec) E/LAT E' Ratio 15.00 (>14) Mitral Valve MV E Max Gregorio. 94.80 (40-130 cm/s) MV A Velocity 63.20 (40-130 cm/s) E/A Ratio 1.50 Tricuspid Valve TR P. Velocity 281.00 cm/s RAP Estimate 10.00 mmHg TV Vmax 250.00 (30-100 cm/s) RVSP 42.00 mmHg Left Ventricle Left atrium is moderately enlarged, left ventricle is normal size, mild concentric left ventricular hypertrophy, visually estimated ejection fraction 55% with no regional wall motion abnormality, grade 2 diastolic dysfunction seen without tissue Doppler evidence of raise left atrial pressure. Right Ventricle Right atrium is moderately enlarged, right ventricle is mildly enlarged with normal contractility. Aortic Valve Aortic valve is minimally thickened and fibrosed. There is no aortic stenosis or aortic insufficiency. Mitral Valve Mitral valve leaflets are minimally thickened, there is mild mitral regurgitation. Tricuspid Valve Tricuspid valve leaflets are minimally thickened, there is moderate tricuspid regurgitation, calculated right ventricular systolic pressure is 42 mmHg, inferior vena cava is mildly dilated without significant inspiratory collapse. Pulmonic Valve Pulmonic valve is poorly visualized. Great Vessels Aortic root is normal size. Pericardium No significant pericardial effusion noted. Conclusion 1. Moderate biatrial enlargement, normal left ventricular size, mild concentric left ventricular hypertrophy, visually estimated ejection fraction 55% with no regional wall motion abnormality, grade 2 diastolic dysfunction seen without tissue Doppler evidence of raise left atrial pressure. 2. Mildly enlarged right ventricle with normal contractility. 3. Mild mitral and moderate tricuspid regurgitation, calculated right ventricular systolic pressure is 42 mmHg. 4. No significant pericardial effusion noted. Electronically signed by : Eder Mera, 04/17/2020 21:42:45
== END ==
PROVIDERS: PCP Family Medicine; Visit Provider Nurse Practitioner Family
DX: I65.23 Occlusion and stenosis of bilateral carotid arteries (principal); R53.83 Other fatigue; E78.2 Mixed hyperlipidemia; I10 Essential (primary) hypertension; I25.10 Atherosclerotic heart disease of native coronary artery without angina pectoris; I27.20 Pulmonary hypertension, unspecified; I42.1 Obstructive hypertrophic cardiomyopathy; I51.89 Other ill-defined heart diseases; Z72.0 Tobacco use
CPT/HCPCS: 93306; 93880

== ENCOUNTER → 2020-05-16 14:18 | Outpatient (CLI) | payer MEDICARE, SELFPAY ==
--- NOTE | 2020-05-16 14:22 | US_ITS ---
PROCEDURE: US THYROID CLINICAL INDICATION: THYROID NODULE COMPARISON: No exams were available for comparison FINDINGS: The right lobe is 3.6 x 1.3 x 1.4 cm. Lobulated hypoechoic nodules present in the mid polar region at 8 x 5 mm spongiform in nature. Additional spongiform nodule noted 8 x 5 mm in the mid polar region Left lobe is 3.6 x 1.4 x 1.3 cm. Mixed cystic and solid nodules present in the upper pole at 9 x 6 mm. A 5 mm cyst is present in the mid polar region. A 8 x 5 mm cyst is present in the mid polar region 11 x 6 mm cyst lower pole IMPRESSION: Bilateral thyroid nodules which are low level of suspicion for malignancy. Consider six-month follow-up to confirm short term stability Dictated by: Maximiliano Isaac MD 05/16/2020 17:35 Maximiliano Isaac MD in [place] 05/16/2020 17:35
== END ==
PROVIDERS: PCP Family Medicine; Visit Provider Family Medicine
DX: E04.1 Nontoxic single thyroid nodule (principal)
CPT/HCPCS: 76536

== ENCOUNTER → 2020-07-24 15:20 | Outpatient (POV) | payer MEDICARE, SELFPAY | PROVIDERS: Visit Provider Nurse Practitioner Family | DX: Z00.00 Encounter for general adult medical examination without abnormal findings (principal) ==

== ENCOUNTER → 2020-08-08 08:01 | Outpatient (CLI) | payer MEDICARE, SELFPAY ==
--- NOTE | 2020-08-08 08:11 | CT_ITS ---
PROCEDURE: CT ABDOMEN PELVIS WO CON CLINICAL INDICATION: EARLY SATIETY,DYSPEPSIA diarrhea, constipated, 20lb weight loss redicat, pt refused IV contrast prior 07/26/19 COMPARISON: CT CT ABDOMEN PELVIS W CON from 07/26/2019 TECHNIQUE: Axial images obtained with sagittal and coronal reformats. All CT scans at the facility use one or more dose reduction, viz: automated exposure control, ma/kV adjustment per patient size (including targeted exams where dose is matched to indication, i.e. head), or iterative reconstruction technique. FINDINGS: LOWER THORAX: There are mild atelectatic changes in the lung bases. A 3 mm noncalcified nodules present in the left lower lobe medially probably unchanged. ABDOMEN & PELVIS: There has been a prior cholecystectomy. The liver, spleen, adrenal glands, has an unremarkable appearance. There is diffuse pancreatic atrophy. No renal or ureteral calculi. There is a mild amount of retained colonic feces. No intestinal obstruction or free air is evident. There has been a prior hysterectomy. There is colonic diverticulosis without diverticulitis. No evidence of appendicitis. No acute bony findings. There is mild dilatation of the infrarenal abdominal aorta at 2 cm. IMPRESSION: No change with no acute finding Dictated by: Maximiliano Isaac MD 08/09/2020 16:12 Maximiliano Isaac MD in [facility] 08/09/2020 16:12
[2020-08-08 08:20] LABS: Blood Urea Nitrogen 18 mg/dl (7-17); Estimated Glomerular Filt Rate 54 ml/min (>60); GFR (African American) 65 ML/MIN (>60)
== END ==
PROVIDERS: PCP Family Medicine; Visit Provider Nurse Practitioner Family
DX: K59.00 Constipation, unspecified (principal); R63.4 Abnormal weight loss; R68.81 Early satiety; K58.9 Irritable bowel syndrome, unspecified; K30 Functional dyspepsia
CPT/HCPCS: 36415; 74176; 82565; 84520

== ENCOUNTER → 2020-08-30 10:03 | Outpatient (CLI) | payer MEDICARE, SELFPAY ==
[2020-08-30 10:56] LABS: Alanine Aminotransferase 21 U/L (12-78); Albumin Level 4.6 g/dl (3.5-5.0); Albumin/Globulin Ratio 1.6 (1.1-1.8); Alkaline Phosphatase 105 U/L (38-126); Amylase 52 U/L (30-110); Anion Gap 12.4 mEq/L (5-15); Aspartate Amino Transferase 18 U/L (14-36); Bilirubin,Total 0.9 mg/dl (0.2-1.3); Blood Urea Nitrogen 23 mg/dl (7-17); Calcium 10.2 mg/dl (8.4-10.2); Carbon Dioxide 30 mmol/L (22.0-30.0); Chloride 101 mmol/L (98-107); Estimated Glomerular Filt Rate 69 ml/min (>60); GFR (African American) 84 ML/MIN (>60); Globulin 2.8 g/dL (1.3-3.2); Glucose 117 mg/dl (74-100); Lipase 167 U/L (23-300); Potassium 4.4 mmoL/L (3.5-5.1); Sodium 139 mmol/L (136-145); Total Protein,Serum 7.4 g/dl (6.3-8.2)
[2020-09-06 09:21] LABS: ALT (SGPT) P5P 22 IU/L (0-40); AST (SGOT) P5P 16 IU/L (0-40); Alpha 2-Macroglobulins, Qn 210 mg/dL (110-276); Apolipoprotein A-1 166 mg/dL (116-209); Bilirubin, Total 0.8 mg/dL (0.0-1.2); Cholesterol, Total 129 mg/dL (100-199); Fibrosis Score 0.43 (0.00-0.21); Fibrosis Stage F1-F2 (.); GGT 91 IU/L (0-60); Glucose 109 mg/dL (65-99); Haptoglobin 187 mg/dL (42-346); NASH Score 0.25 (0.25); Triglycerides 117 mg/dL (0-149)
== END ==
PROVIDERS: Visit Provider Nurse Practitioner Family
DX: K30 Functional dyspepsia (principal); K76.0 Fatty (change of) liver, not elsewhere classified; R63.4 Abnormal weight loss; R93.2 Abnormal findings on diagnostic imaging of liver and biliary tract; R68.81 Early satiety; K58.9 Irritable bowel syndrome, unspecified; R14.0 Abdominal distension (gaseous); F17.290 Nicotine dependence, other tobacco product, uncomplicated
CPT/HCPCS: 36415; 80053; 82150; 83690

== ENCOUNTER → 2020-10-09 14:03 | Outpatient (CLI) | payer MEDICARE, SELFPAY ==
--- NOTE | 2020-10-09 14:05 | CA_ITS ---
APPROVED REPORT [employer]: Oli Laterality: Bilateral Study Quality: Good Indications: VERNA Risk Factors Hypertension: Smoking Doppler Spectral Velocity Analysis ECA (R) 141.10/8.60 cm/s ECA (L) 151.80/15.00 cm/s dICA (R) 37.90/17.30 cm/s dICA (L) 76.30/29.10 cm/s Ara (R) 64.90/22.50 cm/s Ara (L) 79.70/31.70 cm/s pICA (R) 44.90/19.90 cm/s pICA (L) 114.40/40.60 cm/s dCCA (R) 52.70/11.60 cm/s dCCA (L) 61.40/23.90 cm/s pCCA (R) 53.10/7.50 cm/s pCCA (L) 46.90/10.90 cm/s Vert (R) 17.10/2.70 cm/s Vert (L) 44.90/14.80 cm/s ICA/CCA 1.22 ICA/CCA 2.40 Findings Duplex evaluation demonstrates no evidence of hemodynamically significant stenosis of the right Internal Carotid Artery. B-Mode Ultrasound demonstrates minimal intraluminal plaque in the right internal Carotid Artery. Right carotid artery abnormally tortous. B-Mode Ultrasound demonstrates moderate intraluminal plaque in the left common Carotid Artery. Duplex evaluation demonstrates stenosis of the right proximal internal carotid artery in the range of 20-49% with PSV <140 cm/sec, EDV <100 cm/sec, and IC/CC Ratio <4.0. Duplex evaluation demonstrates stenosis of the left proximal internal carotid artery in the range of 20-49% with PSV <140 cm/sec, EDV <100 cm/sec, and IC/CC Ratio <4.0. Antegrade flow observed in bilateral vertebral arteries. Conclusion Duplex evaluation demonstrates stenosis of the right proximal internal carotid artery in the range of 20-49% with PSV <140 cm/sec, EDV <100 cm/sec, and IC/CC Ratio <4.0. Duplex evaluation demonstrates stenosis of the left proximal internal carotid artery in the range of 20-49% with PSV <140 cm/sec, EDV <100 cm/sec, and IC/CC Ratio <4.0. Antegrade flow observed in bilateral vertebral arteries. Electronically signed by : Maximiliano Isaac MD 10/10/2020 18:04:55
--- NOTE | 2020-10-09 14:59 | ECG_ITS ---
APPROVED REPORT Exam: Resting ECG HR:91 bpm ECG Measurements Heart Rate 91 AXES QRSd 76 QRS -10 QT 332 T -58 QTc 408 Conclusion Atrial fibrillation with premature ventricular or aberrantly conducted complexes Septal infarct, age undetermined Abnormal ECG Electronically signed by : Janes Naranjo, 10/09/2020 19:20:33
== END ==
PROVIDERS: PCP Family Medicine; Visit Provider Nurse Practitioner Family
DX: I65.23 Occlusion and stenosis of bilateral carotid arteries (principal); I49.9 Cardiac arrhythmia, unspecified
CPT/HCPCS: 93005; 93880

== ENCOUNTER → 2020-10-12 14:05 | Outpatient (CLI) | payer MEDICARE, SELFPAY | PROVIDERS: PCP Family Medicine; Visit Provider Nurse Practitioner Family | DX: E78.5 Hyperlipidemia, unspecified (principal); I10 Essential (primary) hypertension; I25.10 Atherosclerotic heart disease of native coronary artery without angina pectoris; I27.20 Pulmonary hypertension, unspecified; I42.1 Obstructive hypertrophic cardiomyopathy; R00.2 Palpitations; Z72.0 Tobacco use | CPT/HCPCS: 93270 ==

== ENCOUNTER 2020-10-25 14:32 | Emergency (ER) | payer MEDICARE, SELFPAY ==
[2020-10-25 14:33] VITALS: BP 170/96; PULSE 109; RESP 18; TEMP 36.7; O2SAT 92; BMI 18.5
--- NOTE | 2020-10-25 14:36 | ECG_ITS ---
APPROVED REPORT Exam: Resting ECG HR:98 bpm ECG Measurements Heart Rate 98 AXES QRSd 70 QRS 66 QT 340 T 254 QTc 434 Conclusion Atrial fibrillation Anteroseptal infarct, age undetermined ST & T wave abnormality, consider lateral ischemia or digitalis effect Abnormal ECG Electronically signed by : Janes Naranjo, 10/26/2020 17:39:20
--- NOTE | 2020-10-25 14:42 | HMH.EDSOB ---
ED Disposition Clinical Impression: Anxiety Dyspnea Qualifiers: Dyspnea type: shortness of breath Qualified Code(s): R06.02 - Shortness of breath Disposition: Home, Self-Care Condition on Discharge: Good Instructions: DI for Shortness of Breath Additional Instructions: Please feel free to return to the emergency department if you change your mind about further work-up. Referrals: Nazanin Puente MD [Primary Care Provider] - 3 days - Critical Care Critical Care Time: No Attestation: On 10/25/20, the high probability of a clinically significant, sudden or life threatening deterioration of the following system(s) required my full and direct attention, intervention and personal management. The time I documented below is in addition to time spent performing reported procedures but includes the following listed in this critical care notation. Medical Decision Making - Medical Records Medical records reviewed: Yes: I reviewed the patient's medical records. - Jorge Inquiry Pt receiving controlled substance: No Vital Signs: 10/25/20 14:33 10/25/20 14:45 Temperature 98.1 F Temperature Source Oral Pulse Rate 105 H Pulse Rate [Right] 109 H Respiratory Rate 18 22 Blood Pressure 149/94 H Blood Pressure [Right Arm] 170/96 H Blood Pressure Mean [Right Arm] 120 02 Sat by Pulse Oximetry 92 L 92 L Oxygen Delivery Method Room Air - ECG Data Tracing #1 EKG at 1436 shows atrial fibrillation with a rate of 98. Normal QRS, QTc. No STEMI. EKG interpreted by me. Medical Decision Narrative: I have multiple concerns for this patient given her A. fib with no anticoagulation including pulmonary embolus, possible neoplastic disease given her long history of smoking, congestive heart failure, hypertension. Patient states normally her blood pressure is much lower than 170 and that she is simply nervous. Anxiety certainly could be a component to her shortness of breath as well. She also could have worsening COPD such that she needs oxygen. Her lung exam is clear for me here with no crackles or rales that would suggest acute fluid overload. I have let her know that we can perform labs here, perform a CTA to look for pulmonary embolus, lung masses, etc. Patient states that she does not like contrast and does not want to undergo that test. She has actually decided that she wants to just continue to follow-up with Pura Chanel as she has been doing weekly since her symptoms began worsening several weeks ago. I have expressly discussed with her that we could be missing acute pathology as mentioned above and patient expresses understanding of this to me, is alert and oriented x4. I have encouraged her to return for any reason if she changes her mind. In no acute distress at discharge. Resp/SOB HPI - General Stated Complaint: SOA Time Seen by Provider: 10/25/20 14:42 Mode of Arrival: Wheelchair Source of Information: Patient Limitations: No Limitations - History of Present Illness This is a 80-year-old female with a past medical history significant for hypertension, hyperlipidemia, coronary artery disease, COPD, atrial fibrillation not on anticoagulation secondary to GI bleed within the last 2 years who presents to the emergency department for evaluation of shortness of breath primarily at night when she is at home alone. She does have a history of anxiety and states that she primarily has increased shortness of breath when she is anxious. Daughter is concerned because patient seems to fan herself whenever she is nervous or short of breath. Daughter is also concerned about swelling in the legs, but patient states this has been progressive and is not acute. Patient states that her symptoms have been ongoing for a long time , but worsening over the last several weeks. They have been seeing Pura Chanel weekly for this and patient states she recently had an echo a few weeks ago that was unremarkable per her report.
[2020-10-25 14:45] VITALS: BP 149/94; PULSE 105; RESP 22; O2SAT 92
[2020-10-25 14:58] VITALS: BP 149/94; PULSE 129; RESP 22; O2SAT 91
[2020-10-25 15:00] VITALS: BP 150/95; PULSE 115; RESP 22; O2SAT 91
[2020-10-25 15:37] VITALS: BP 150/84; PULSE 98; RESP 17; TEMP 36.8; O2SAT 94
== END 2020-10-25 15:35 | disposition home or self-care (01) ==
PROVIDERS: Emergency Provider Emergency Medicine; PCP Family Medicine
DX: R06.00 Dyspnea, unspecified (principal); I48.91 Unspecified atrial fibrillation; I25.10 Atherosclerotic heart disease of native coronary artery without angina pectoris; I50.9 Heart failure, unspecified; I10 Essential (primary) hypertension; E78.5 Hyperlipidemia, unspecified; F41.9 Anxiety disorder, unspecified; F17.210 Nicotine dependence, cigarettes, uncomplicated; Z79.899 Other long term (current) drug therapy; Z88.0 Allergy status to penicillin; Z88.2 Allergy status to sulfonamides
CPT/HCPCS: 93005; 99281

== ENCOUNTER → 2020-10-30 10:43 | Outpatient (CLI) | payer MEDICARE, SELFPAY ==
[2020-10-30 12:12] LABS: Basophils % 0.4 % (0.1-2.0); Eosinophils % 0.3 % (0.1-12.0); Hematocrit 49.5 % (37.0-47.0); Hemoglobin 15.8 g/dL (12.2-16.2); Lymphocytes # 1.6 K/mm3 (0.7-4.5); Lymphocytes % 20.9 % (10-50); Mean Corpuscular HGB Conc 31.9 g/dL (31.8-35.4); Mean Corpuscular Hemoglobin 32.1 pg (27.0-31.2); Mean Corpuscular Volume 100.6 fl (81-99); Mean Platelet Volume 8.8 fl (7.4-10.4); Monocytes # 0.5 K/mm3 (0.1-1.0); Monocytes % 6.6 % (1.7-9.3); Neutrophils # 5.6 K/mm3 (1.8-7.8); Neutrophils % 71.9 % (37.0-80.0); Platelet Count 199 K/mm3 (142-424); Red Blood Count 4.92 M/mm3 (4.20-5.40); White Blood Count 7.8 K/mm3 (4.8-10.8)
[2020-10-30 12:20] LABS: Chloride 108 mmol/L (98-107)
[2020-10-30 12:21] LABS: Potassium 4.2 mmoL/L (3.5-5.1); Sodium 141 mmol/L (136-145)
[2020-10-30 12:23] LABS: Blood Urea Nitrogen 18 mg/dl (7-17); Estimated Glomerular Filt Rate 81 ml/min (>60); GFR (African American) 98 ML/MIN (>60)
[2020-10-30 12:24] LABS: Anion Gap 9.2 mEq/L (5-15); Calcium 9.4 mg/dl (8.4-10.2); Carbon Dioxide 28 mmol/L (22.0-30.0); Glucose 110 mg/dl (74-100)
[2020-10-30 12:44] LABS: Coronavirus 19 IgG Antibody Negative (Negative); Coronavirus 19 IgM Antibody Negative (Negative)
== END ==
PROVIDERS: PCP Nurse Practitioner Family; Referring Provider Nurse Practitioner Family; Visit Provider Nurse Practitioner Family
DX: E78.5 Hyperlipidemia, unspecified (principal); I10 Essential (primary) hypertension; I27.20 Pulmonary hypertension, unspecified; I42.1 Obstructive hypertrophic cardiomyopathy; I48.0 Paroxysmal atrial fibrillation; I65.29 Occlusion and stenosis of unspecified carotid artery; Z72.0 Tobacco use; Z98.890 Other specified postprocedural states; Z01.818 Encounter for other preprocedural examination; Z20.822 Contact with and (suspected) exposure to COVID-19; I20.8 Other forms of angina pectoris
CPT/HCPCS: 36415; 80048; 85025; 86328; U0003

== ENCOUNTER 2020-11-02 07:26 | Day surgery (SDC) | payer MEDICARE, SELFPAY ==
[2020-11-02] VITALS (12 sets, daily range): BP systolic 115–155; BP diastolic 62–92; PULSE 81–110; RESP 16–18; TEMP 36.7; O2SAT 87–99; BMI 17.8
--- NOTE | 2020-11-02 07:22 | IR_ITS ---
APPROVED REPORT Patient Location: Outpatient Chip Mucker: JERMAN Oneil RT (R) PROCEDURES Left heart catheterization Left ventriculogram Selective coronary angiogram INDICATION Angina pectoris, Preoperative evaluation Informed consent was obtained prior to the procedure. COMPLICATIONS None Estimated Blood Loss: Less than 10 mls TECHNIQUE One percent lidocaine used to anesthetize the right anterior aspect of the wrist. The right radial artery was accessed via the Seldinger technique. A 6 Mexican sheath was placed in the right radial artery. 2.5 mg of verapamil, 800 mcg of nitroglycerin, 1mg Lidocaine and 5000 U Heparin were given through the arterial sheath. The trap catheter was also used to perform left heart catheterization, left ventriculogram and selective coronary angiogram. At the end of the procedure the sheath was removed good hemostasis was achieved using Traclet band, patient was transferred to the postop holding area in stable condition. ANGIOGRAPHIC RESULTS The left main artery Normal The left anterior descending artery Has proximal external calcifications identified by fluoroscopy with the 40% concentric stenosis immediately adjacent to the first diagonal artery. The remaining LAD is smaller caliber but patent. The first diagonal artery is moderate in size and has an ostial proximal 40% stenosis The circumflex artery Is a massively large dominant vessel with mild 10 to 20% atheromatous plaque The right coronary artery Small nondominant vestigial in size with an ostial greater than 90% stenosis. The vessel is 1 mm in size The VERMA ventriculogram reveals Normal slightly hyperdynamic with small degree of apical hocm The left ventricular end-diastolic pressure 20 mmHg IMPRESSION Patent coronary arteries involving the LAD and dominant circumflex artery as described above with severe stenosis in a vestigial nondominant right coronary artery which is clinically insignificant Normal ejection fraction with small degree of apical hocm Mild elevated LVEDP PLAN 1. Patient is alone acceptable risk to proceed with watchman device 2. Medical management for coronary artery disease Electronically signed by : Sarbjit Floyd, 11/02/2020 10:18:41
== END 2020-11-02 13:26 | disposition home or self-care (01) ==
LOC: CATHLAB 07:28
PROVIDERS: PCP Family Medicine; Visit Provider Internal Medicine
DX: E78.5 Hyperlipidemia, unspecified (principal); I10 Essential (primary) hypertension; I25.118 Atherosclerotic heart disease of native coronary artery with other forms of angina pectoris; I27.20 Pulmonary hypertension, unspecified; I42.1 Obstructive hypertrophic cardiomyopathy; I48.0 Paroxysmal atrial fibrillation; I65.29 Occlusion and stenosis of unspecified carotid artery; Z72.0 Tobacco use; Z88.1 Allergy status to other antibiotic agents; Z88.2 Allergy status to sulfonamides; Z88.8 Allergy status to other drugs, medicaments and biological substances; Z79.899 Other long term (current) drug therapy
CPT/HCPCS: 93458; 99152; C1725; C1769; J1644; Q9967

== ENCOUNTER 2020-11-13 06:03 | Observation (INO) | payer MEDICARE, SELFPAY ==
[2020-11-13] VITALS (33 sets, daily range): BP systolic 103–163; BP diastolic 52–109; PULSE 66–136; RESP 13–22; TEMP 36.7–36.8; O2SAT 86–100; BMI 20.5; BMI 16.2
--- NOTE | 2020-11-13 05:45 | ECG_ITS ---
APPROVED REPORT Exam: Resting ECG HR:119 bpm ECG Measurements Heart Rate 119 AXES QRSd 72 QRS -24 QT 290 T 249 QTc 407 Conclusion Atrial fibrillation with rapid ventricular response Low voltage QRS Anteroseptal poor R wave progression, unchanged Abnormal ECG Electronically signed by : Janes Naranjo, 11/16/2020 14:01:21
--- NOTE | 2020-11-13 05:52 | HMH.EDGENADL ---
ED Disposition Clinical Impression: Rapid atrial fibrillation, TIA (transient ischemic attack), Elevated troponin Disposition: Admitted as Observation Condition on Discharge: Fair Referrals: Nazanin Puente MD [Primary Care Provider] - - Critical Care Critical Care Time: Yes Attestation: On , the high probability of a clinically significant, sudden or life threatening deterioration of the following system(s) required my full and direct attention, intervention and personal management. The time I documented below is in addition to time spent performing reported procedures but includes the following listed in this critical care notation. Total Critical Care Time: 30 Vital system(s) involved:: Circulatory Failure My critical care processes included: Assessment & monitoring of V/S, Initial and Re-exams, Data Review/Interpretation, Coordinating Care, Medication Orders and management, Documentation Medical Decision Making - Medical Records Medical records reviewed: Yes: I reviewed the patient's medical records. MR Costello: She has a history of paroxysmal atrial fibrillation. She declines anticoagulation due to a history of GI bleed. She is scheduled to see Dr. Parmar in [place] on 11/22/2020 for a watchman device. She recently had cardiac cath for angina and for preoperative clearance for that procedure. She is also had recent echocardiogram and carotid duplex. Also noted that she has had carotid duplex on 04/22/2019, 09/22/2019, 04/17/2020, as well as recently on 10/09/2020. See most recent results of carotid duplex, echocardiogram, and cardiac cath below. - Jorge Inquiry Pt receiving controlled substance: No Vital Signs: 11/13/20 05:50 Temperature 98.1 F Temperature Source Oral Pulse Rate [Right Brachial] 131 H Respiratory Rate 18 Blood Pressure [Left Arm] 143/109 H Blood Pressure Mean [Left Arm] 120 Blood Pressure Source [Left Arm] Automatic Cuff Blood Pressure Position [Left Arm] Sitting 02 Sat by Pulse Oximetry 98 Oxygen Delivery Method Room Air - Lab Data Lab Results 11/13/20 05:53: WBC 8.0, RBC 5.13, Hgb 16.4 H, Hct 51.0 H, MCV 99.6 H, MCH 31.9 H, MCHC 32.1, RDW 12.9, Plt Count 186, MPV 8.5, Neut % (Auto) 69.1, Lymph % (Auto) 22.1, Whitley % (Auto) 7.6, Eos % (Auto) 0.8, Baso % (Auto) 0.4, Neut # (Auto) 5.5, Lymph # (Auto) 1.8, Whitley # (Auto) 0.6, Eos # (Auto) 0.1, Baso # (Auto) 0.0 11/13/20 05:53: Sodium 144, Potassium 3.6, Carbon Dioxide 28, BUN 20 H, Creatinine 0.60, Estimated Creat Clear 37, Estimated GFR 97, Est GFR ( Amer) 117, Glucose 115 H, Calcium 9.7, Total Bilirubin 1.0, AST 26, ALT 38, Alkaline Phosphatase 127 H, Troponin I 0.17 H, Total Protein 7.1, Albumin 4.4, Globulin 2.7, Albumin/Globulin Ratio 1.6 Result diagrams: 11/13/20 05:53 11/13/20 05:53 Orders (Tests/Meds): ED MEDICATIONS Generic Name Dose Route Start Last Admin Trade Name Freq PRN Reason Stop Dose Admin Diltiazem HCl 100 mg/ Sodium 100 mls @ 5 mls/hr 11/13/20 07:26 11/13/20 07:18 Chloride IV 12/13/20 07:25 5 mls/hr .Q20H OLIVIA Administration Protocol Discontinued Medications Generic Name Dose Route Start Last Admin Trade Name Freq PRN Reason Stop Dose Admin Aspirin 324 mg 11/13/20 07:11 Aspirin 81mg Chewable Tablet PO 11/13/20 07:12 ONCE ONE Diltiazem HCl 10 mg 11/13/20 07:11 11/13/20 07:17 Diltiazem 25mg/5ml Vial IV 11/13/20 07:12 10 mg ONCE ONE Administration ORDERS Category Date Time Status Comprehensive Metabolic Panel Stat Lab 11/13/20 05:53 Results Full Resp Panel w/COVID ([facility]) Routine Lab 11/13/20 07:26 Ordered Troponin I Q3H Lab 11/13/20 09:45 Ordered Troponin I Q3H Lab 11/13/20 12:45 Ordered Troponin I Stat Lab 11/13/20 05:53 Results - Radiology Data #1 Image(s): Chest Image Reviewed: Yes I have reviewed radiologist's interpretation PROCEDURE: XR CHEST PORTABLE CLINICAL HISTORY: TIA symptoms Smoker COMPARISON: CR XR CHEST 2
--- NOTE | 2020-11-13 06:35 | CT_ITS ---
PROCEDURE: CT HEAD/BRAIN WO CON CLINICAL INDICATION: TIA Evidence of left, history of carotid surgery COMPARISON: No exams were available for comparison TECHNIQUE: Axial images obtained. All CT scans at the facility use one or more dose reduction, viz: automated exposure control, ma/kV adjustment per patient size (including targeted exams where dose is matched to indication, i.e. head), or iterative reconstruction technique. FINDINGS: No midline shift, mass effect, intracranial hemorrhage, hydrocephalus, or extra-axial fluid collection is evident. Low-density white matter changes are present in the periventricular area consistent with microvascular changes. The calvarium has an unremarkable appearance. No mastoid effusion. No sinus air-fluid level. IMPRESSION: No acute intracranial finding Dictated by: Maximiliano Isaac MD 11/13/2020 07:15 Maximiliano Isaac MD in [place] 11/13/2020 07:15
--- NOTE | 2020-11-13 06:36 | XR_ITS ---
PROCEDURE: XR CHEST PORTABLE CLINICAL HISTORY: TIA symptoms Smoker COMPARISON: CR XR CHEST 2V from 04/21/2019 CR XR CHEST PORTABLE from 03/25/[address] ABDOMEN PELVIS WO CON from 08/08/2020 FINDINGS: Mild cardiomegaly without failure. Vascular stent is present right brachiocephalic region. The right hemidiaphragm is elevated with right basilar atelectasis and possible small effusion. Lucency is noted under the hemidiaphragm on the right may be related to bowel interposition. Consider CT for confirmation as this was not present on a previous study. Air within an abscess would be an additional consideration. This could also be related to aerated lung superimposed upon consolidated lung. No acute bony abnormalities. IMPRESSION: There is apparent elevation of the right hemidiaphragm with right basilar atelectasis as described above. There may be bowel interposition on the right. Aerated lung superimposed upon consolidated lung with effusion is also consideration. Air within an abscess is also considered. CT may provide further evaluation. Dictated by: Maximiliano Isaac MD 11/13/2020 07:14 Maximiliano Isaac MD in [place] 11/13/2020 07:16
[2020-11-13 06:43] LABS: Potassium 3.6 mmoL/L (3.5-5.1); Sodium 144 mmol/L (136-145)
[2020-11-13 06:46] LABS: Alanine Aminotransferase 38 U/L (12-78); Albumin Level 4.4 g/dl (3.5-5.0); Albumin/Globulin Ratio 1.6 (1.1-1.8); Alkaline Phosphatase 127 U/L (38-126); Aspartate Amino Transferase 26 U/L (14-36); Basophils % 0.4 % (0.1-2.0); Blood Urea Nitrogen 20 mg/dl (7-17); Carbon Dioxide 28 mmol/L (22.0-30.0); Creatinine Clearance Estimated 37 mL/min (50-200); Eosinophils # 0.1 K/mm3 (0.0-0.4); Eosinophils % 0.8 % (0.1-12.0); Estimated Glomerular Filt Rate 97 ml/min (>60); GFR (African American) 117 ML/MIN (>60); Globulin 2.7 g/dL (1.3-3.2); Hemoglobin 16.4 g/dL (12.2-16.2); Lymphocytes # 1.8 K/mm3 (0.7-4.5); Lymphocytes % 22.1 % (10-50); Mean Corpuscular HGB Conc 32.1 g/dL (31.8-35.4); Mean Corpuscular Hemoglobin 31.9 pg (27.0-31.2); Mean Corpuscular Volume 99.6 fl (81-99); Mean Platelet Volume 8.5 fl (7.4-10.4); Monocytes # 0.6 K/mm3 (0.1-1.0); Monocytes % 7.6 % (1.7-9.3); Neutrophils # 5.5 K/mm3 (1.8-7.8); Neutrophils % 69.1 % (37.0-80.0); Platelet Count 186 K/mm3 (142-424); Red Blood Count 5.13 M/mm3 (4.20-5.40); Red Cell Distribution Width 12.9 % (11.5-17.5); Total Protein,Serum 7.1 g/dl (6.3-8.2)
[2020-11-13 06:47] LABS: Calcium 9.7 mg/dl (8.4-10.2); Glucose 115 mg/dl (74-100)
[2020-11-13 06:58] LABS: Troponin I 0.17 ng/ml (0.00-0.034)
[2020-11-13 07:31] LABS: Adenovirus,PCR Not Detected (NotDetected); Bordetella Pertussis Not Detected (NotDetected); Chlamydophila Pneumoniae, PCR Not Detected (NotDetected); Coronavirus 19, PCR Not Detected (NotDetected); Coronavirus 229E Not Detected (NotDetected); Coronavirus NL63 Not Detected (NotDetected); Coronavirus OC43 Not Detected (NotDetected); Coronovirus HKU1,PCR Not Detected (NotDetected); Human Metapneumovirus Not Detected (NotDetected); Influenza A, PCR Not Detected (NotDetected); Influenza AH1, 2009 Not Detected (NotDetected); Influenza AH1, PCR Not Detected (NotDetected); Influenza AH3,PCR Not Detected (NotDetected); Influenza B, PCR Not Detected (NotDetected); Mycoplasma Pneumoniae, PCR Not Detected (NotDetected); Parainfluenza 1, PCR Not Detected (NotDetected); Parainfluenza 2, PCR Not Detected (NotDetected); Parainfluenza 3, PCR Not Detected (NotDetected); Parainfluenza 4, PCR Not Detected (NotDetected); Respiratory Syncytial Virus Not Detected (NotDetected); Rhinovirus/Enterovirus Not Detected (NotDetected)
--- NOTE | 2020-11-13 07:34 | PC.NURSE ---
MARCELLA Montoya aware of pt admission for rapid A-fib, TIA and elevated trop. PT is currently on cardizem drip
[2020-11-13 07:36] LABS: Anion Gap 10.6 mEq/L (5-15); Chloride 109 mmol/L (98-107)
--- NOTE | 2020-11-13 07:58 | HMH.PHAVTE ---
[facility] Pharmacy VTE Monitoring - Patient Demographics Admission date: 11/13/20 Report Date: 11/13/20 Time: 07:58 Allergies/Adverse Reactions: Patient Allergies beef derived (bovine) Allergy (Verified 10/30/20 10:07) Unknown allergy reaction Milk Containing Products Allergy (Verified 10/30/20 10:07) Unknown allergy reaction Penicillins Allergy (Verified 10/30/20 10:07) Unknown allergy reaction Sulfa (Sulfonamide Antibiotics) Allergy (Verified 10/30/20 10:07) Height: 1.57 m Weight: 50.802 kg Patient Problems: Current Active Problems Rapid atrial fibrillation (Acute) TIA (transient ischemic attack) (Acute) Elevated troponin (Acute) - VTE Risk Labs: VTE Related Lab Results Hgb 16.4 g/dL (12.2-16.2) H 11/13/20 05:53 Hct 51.0 % (37.0-47.0) H 11/13/20 05:53 Plt Count 186 K/mm3 (142-424) 11/13/20 05:53 BUN 20 mg/dl (7-17) H 11/13/20 05:53 Creatinine 0.60 mg/dl (0.52-1.04) 11/13/20 05:53 Estimated Creat Clear 37 mL/min (50-200) 11/13/20 05:53 Clinical Trial Participant: No - Prophylaxis VTE Prophylaxis Ordered?: Yes Types of VTE Prophylaxis: TEDS Knee High
--- NOTE | 2020-11-13 09:13 | HMH.HP ---
*Admission Date: 11/13/20 *Chief complaint: nausea and dizziness *History of present illness: Ms. Banks is a 80-year-old female with a history of hypertension, hyperlipidemia, arthritis, irritable bowel syndrome, diverticulosis, depression, carotid stenosis, chronic atrial fibrillation, coronary artery disease, and GI bleed who awakened about 330 this a.m. with her head swimming as if the room was moving and nausea. She had no control over her left arm. She did have some left-sided facial discomfort. She denied having any chest pain or shortness of breath. Her vision was initially blurry and she described weak legs. She did get up to the bedside commode when her daughter arrived and had a small amount of diarrhea. She is voiding QS without any difficulty. With arrival to the emergency room her symptoms were resolved. She was in atrial fibrillation with a rapid ventricular response in the 130s. She was given a diltiazem bolus of 10 mg and aspirin and started on a diltiazem drip. Patient was noted to have a known history of paroxysmal atrial fibrillation. She has declined anticoagulation other than an aspirin due to a history of GI bleed. She has been scheduled to see Dr. Parmar in [place] on 11/22/2020 for a watchman device. She recently had cardiac cath for angina and for preoperative clearance for that procedure. She also had recent echocardiogram and carotid duplex. Also noted that she has had carotid duplex on 04/22/2019, 09/22/2019, 04/17/2020, as well as recently on 10/09/2020. Recent cardiac cath revealed patent coronary arteries involving the LAD and dominant circumflex artery with severe stenosis will nondominant right coronary artery which was felt to be clinically insignificant. Carotid ultrasound revealed stenosis of the right proximal internal carotid artery of 20 to 49% and stenosis of the left proximal mall internal artery 20 to 49%. Echocardiogram revealed the following: Conclusion 1. Moderate biatrial enlargement, normal left ventricular size, mild concentric left ventricular hypertrophy, visually estimated ejection fraction 55% with no regional wall motion abnormality, grade 2 diastolic dysfunction seen without tissue Doppler evidence of raise left atrial pressure. 2. Mildly enlarged right ventricle with normal contractility. 3. Mild mitral and moderate tricuspid regurgitation, calculated right ventricular systolic pressure is 42 mmHg. 4. No significant pericardial effusion noted. With this evaluation in the ER CT of the head revealed evidence of left history of carotid surgery and no acute intracranial findings. Chest x-ray revealed elevation of the right hemidiaphragm with right basilar atelectasis. Possibly thought to be bowel interposition on the right or possibly Aerated lung superimposed upon consolidated lung with effusion was also considered. Recommended CT scan. Laboratory data revealed a WBC of 8000 and hemoglobin of 16.4 and hematocrit of 51. Blood chemistries show satisfactory electrolytes with a BUN of 20 and creatinine 0.6. Alkaline phosphatase was elevated at 127 and troponin I was 0.17. Patient was then admitted for further evaluation and treatment to the [facility] with a Cardizem drip. At time of this exam patient remains comfortable and denies nausea, chest pain, and shortness of breath. [facility] History Medical History: Reports:: Anxiety, Asthma, Atrial Fibrillation, Carotid Stenosis, Coronary Artery Disease, Depression, Gastroesophageal Reflux Disease(GERD), Heart Murmur, Hyperlipidemia, Hypertension, Myocardial Infarction, Palpitations, Renal Insufficiency Denies:: Cancer, Diabetes Mellitus Type 1, Diabetes Mellitus Type 2, Internal Pacemaker, MRSA *Have you ever received a pneumonia vaccine?: Yes *Have you received a flu vaccine this season?: Yes Other Medical History: Reports: Arthritis, Hoarseness, Hormone Therapy, Sinus Problems, Other Laterality Cases: Right: Carpal Tunnel Release Other Rivka
--- NOTE | 2020-11-13 09:45 | PC.NURSE ---
Titrated cardizem drip to 7mg/hr, HR is 123.
--- NOTE | 2020-11-13 09:52 | PC.NURSE ---
Report called to Nathalie DURAN
--- NOTE | 2020-11-13 10:24 | HMH.CNCARD ---
History of Present Illness Consult date: 11/13/20 Requesting physician: Nazanin Puente Consult reason: atrial fibrillation Chief complaint: atrial fib History of present illness: 80-year-old female presented to the [facility] ED with increased palpitations and nausea. Patient states the nausea feeling woke her up from sleep. Patient states she felt as if the room was moving. Upon arrival to the ED patient was noted to be in atrial fibrillation with RVR. Patient does have history of atrial fibrillation. Patient is currently set up for a consultation with Dr. Parmar at [facility] for possible watchman device. Due to GI bleed patient is unable to take anticoagulant. Patient did undergo left heart catheterization November 02, 2020 which revealed patent coronary arteries involving the LAD and dominant circumflex artery, severe stenosis of the nondominant RCA with a normal EF with small degree of apical hokum. Last echocardiogram was 04/23, revealed EF 55% with moderate TR noted. Patient does have history of carotid artery stenosis. CN I from revealed bilateral ICAs 20 to 49%. Patient is currently on a diltiazem drip at 5 mg and Bystolic 10 mg p.o. for heart rate control. panel monitor reveals heart rate noted in the 110s in atrial fibrillation. Patient denies chest pain, tightness or pressure. Patient denies shortness of breath. Slight swelling noted of the lower extremity. Troponin x1 elevated at 0.17. PAD is stable. Hx of Right subclavian stent. Apical HOCM was seen on heart cath in 2019. Discussed plan of care with Dr. Floyd and patient. Will start diltiazem 180 mg p.o. then in 1 hour DC Cardizem drip. We know that patient probably will not convert to sinus rhythm the main goal is to have patient's heart rate more controllable. We will continue Bystolic 10 mg daily for heart rate and BP control. Obtain echocardiogram to assess LV function and valve status. We will continue to monitor patient at this time. Elevated troponin x1 noted and will proceed as medical management at this time. [facility] (11/02/20)ANGIOGRAPHIC RESULTS The left main artery Normal The left anterior descending artery Has proximal external calcifications identified by fluoroscopy with the 40% concentric stenosis immediately adjacent to the first diagonal artery. The remaining LAD is smaller caliber but patent. The first diagonal artery is moderate in size and has an ostial proximal 40% stenosis The circumflex artery Is a massively large dominant vessel with mild 10 to 20% atheromatous plaque The right coronary artery Small nondominant vestigial in size with an ostial greater than 90% stenosis. The vessel is 1 mm in size The VERMA ventriculogram reveals Normal slightly hyperdynamic with small degree of apical hocm The left ventricular end-diastolic pressure 20 mmHg IMPRESSION Patent coronary arteries involving the LAD and dominant circumflex artery as described above with severe stenosis in a vestigial nondominant right coronary artery which is clinically insignificant Normal ejection fraction with small degree of apical hocm Mild elevated LVEDP PLAN 1. Patient is alone acceptable risk to proceed with watchman device 2. Medical management for coronary artery disease Chest xray:IMPRESSION: There is apparent elevation of the right hemidiaphragm with right basilar atelectasis as described above. There may be bowel interposition on the right. Aerated lung superimposed upon consolidated lung with effusion is also consideration. Air within an abscess is also considered. CT may provide further evaluation. Echo: (04/23) Conclusion 1. Moderate biatrial enlargement, normal left ventricular size, mild concentric left ventricular hypertrophy, visually estimated ejection fraction 55% with no regional wall motion abnormality, grade 2 diastolic dysfunction seen without tissue Doppler evidence of raise left atrial pressure.
--- NOTE | 2020-11-13 10:30 | CA_ITS ---
APPROVED REPORT EXAM: Comprehensive 2D, Doppler, and color-flow Echocardiogram Patient Safety Sitter: Kaylah Littlejohn, EVELYN, RVS Ht: 5 ft 2 in Wt: 112lbs BSA: 1.49 HR: 102 bpm BP: 155/90 mmHg Rhythm: Atrial Fibrillation Indications: A-Fib, palpitations, murmu, scheduled for kellen device-11/22/20 2D Dimensions IVSd 0.99 cm LVEF (Visual) 27.60 % PWd 1.13 cm LA Volume 56.70 mL LVDd 3.81 cm LA Volume Index 38.10 mL/m2 (M/F) 16-34 LVDs 3.33 cm LVOT 2.03 cm (M/F) 1.5-2.5 M-Mode Dimensions RVDd 2.12 cm (0.9-2.6) LA Diam 4.23 cm (1.9-4.0) LVDd 4.12 cm (3.5-5.7) Ao Diam 3.23 cm (2.0-3.7) IVSd 0.82 cm (0.6-1.1) PWd 1.01 cm (0.6-1.1) EPSs 0.72 cm EDV (Teich) 75.10 mL TAPSE 1.37 (<1.7) LV Diastology E Decel Time 127.00 (160-240 msec) E/A Ratio 3.28 MED E' 8.90 (< 7 cm/sec) E'/MED E' Ratio 13.89 (>14) LAT E' 9.40 (<10 cm/sec) LAT A' 3.90 cm/s E/LAT E' Ratio 13.15 (>14) Pulm Vein s 44.00 cm/sec Pulm Vein d 44.00 cm/sec Aortic Valve LVOT Max 98.00 (70-110 cm/s) LVOT VTI 17.89 cm AoV Peak Gregorio. 120.00 (50-130 cm/s) AI PHT 271.00 ms AO Peak GR. 5.80 mmHg AO Mean GR. 2.90 (<5 mmHg) AO VTI 20.73 (18-25 cm) KARTHIK (VTI) 2.79 (2.5-4.5 cm2) Mitral Valve MV E Max Gregorio. 124.00 (40-130 cm/s) MV A Velocity 38.00 (40-130 cm/s) E/A Ratio 3.28 MV Decel. Time 127.00 (160-240 ms) MV PHT 37.00 ms Pulmonary Valve PV Peak Velocity 78.00 (50-150 cm/s) HI End VMAX 210.00 cm/s Tricuspid Valve TR P. Velocity 321.00 cm/s RAP Estimate 10.00 mmHg RVSP 51.20 mmHg Left Ventricle Left atrium is moderately enlarged, left ventricle is normal size, mild concentric left ventricular hypertrophy, visually estimated ejection fraction 55% with no regional wall motion abnormality, diastolic parameters are inconclusive. Right Ventricle Right atrium is moderately enlarged, right ventricle is mildly dilated with normal contractility. Aortic Valve Aortic valve is thickened and calcified without Doppler evidence of aortic stenosis, there is mild aortic insufficiency. Mitral Valve Mitral valve is grossly normal, there is mild mitral regurgitation. Tricuspid Valve Tricuspid leaflets are minimally thickened, there is moderate tricuspid regurgitation, calculated right ventricular systolic pressure 51 mmHg. Pulmonic Valve Pulmonic valve is poorly visualized. Great Vessels Aortic root is normal size. Inferior vena cava is mildly dilated without significant inspiratory collapse. Pericardium No significant pericardial effusion noted, Conclusion 1. Moderate biatrial enlargement, normal left ventricular size, mild concentric left ventricular hypertrophy, visually estimated ejection fraction 55% with no regional wall motion abnormality, diastolic parameters are inconclusive. 2. Moderately enlarged right ventricle with normal contractility. 3. Mild mitral and moderate tricuspid regurgitation, calculated right ventricular systolic pressure is 52 mmHg. 4. Thickened and calcified aortic valve without Doppler evidence of aortic stenosis, there is mild aortic insufficiency. 5. Dilated inferior vena cava without significant inspiratory collapse. Electronically signed by : Eder Mera, 11/13/2020 21:51:26
[2020-11-13 11:17] LABS: Troponin I 0.14 ng/ml (0.00-0.034)
[2020-11-13 13:49] LABS: Troponin I 0.12 ng/ml (0.00-0.034)
--- NOTE | 2020-11-13 15:32 | HMH.PHAINT ---
MEDICATION RECONCILIATION COMPLETED ON PATIENT USING EXTERNAL FILL HISTORY FROM PHARMACY, LIST FROM [facility] OFFICE, LIST FROM CARDIOLOGY OFFICE, AND ANA LAURA REPORT. -DAVID SHEPARDD
--- NOTE | 2020-11-13 16:51 | PC.NURSE ---
pt has had numerous family members in and out this shift. pt is alert and oriented lungs are clear, bowel sounds are active. pt tolerated lovenox injection well, despite scan sub q tissue. nad noted. will monitor.
[2020-11-14] VITALS (7 sets, daily range): BP systolic 105–132; BP diastolic 64–75; PULSE 70–94; RESP 19–20; TEMP 36.6–36.8; O2SAT 89–95; BMI 15.8
--- NOTE | 2020-11-14 07:57 | HMH.ACPN2 ---
Internal Medicine - PN: Subj *Date: 11/14/20 *Time: 07:57 Interval history: Patient feels better this AM; she denies CP and SOB; she is still afraid of nausea although she ate brussel sprouts last night for dinner without problems; bowels have moved and she is voiding QS; she has been up to the BR. she did have some restless legs last night; her daughter stayed with her throughout the night. Pt.states her left arm functioning is back to normal Her nurse says she has done well; monitor showing afib with controlled VR in 80-90's Exam Vital signs and Labs for Last 24 Hours: Temp Pulse Resp BP Pulse Ox 98.3 F 90 20 132/72 90 L 11/14/20 07:55 11/14/20 06:00 11/14/20 04:00 11/14/20 06:00 11/14/20 06:00 Laboratory Results - last 24 hr 11/13/20 07:27: Chlamy pneumoniae PCR Not detected, Adenovirus (PCR) Not detected, B. pertussis DNA (PCR) Not detected, Coronavirus OC43 (PCR) Not detected, Coronavirus HKU1 (PCR) Not detected, Coronavirus 229E (PCR) Not detected, SARS-CoV-2 (PCR) Not detected, Coronavirus NL63 (PCR) Not detected, Human Metapneumovir PCR Not detected, Influenza A (H1) PCR Not detected, Influ A (H1N1/09) PCR Not detected, Influenza A (H3) PCR Not detected, Influenza Type A (PCR) Not detected, Influenza Type B (PCR) Not detected, M. pneumoniae (PCR) Not detected, Parainfluenza 1 (PCR) Not detected, Parainfluenza 2 (PCR) Not detected, Parainfluenza 3 (PCR) Not detected, Parainfluenza 4 (PCR) Not detected, RSV (PCR) Not detected, Entero/Rhino (PCR) Not detected 11/13/20 10:25: Troponin I 0.14 H 11/13/20 13:20: Troponin I 0.12 H I & O for Last 24 hours: Intake & Output 11/11/20 11/12/20 11/13/20 11/14/20 11:59 11:59 11:59 11:59 Intake Total 650 / 650 Output Total 500 / 500 Balance 150 / 150 Weight 95 lb 93 lb - Constitutional no acute distress Comments: sitting up in the bed eating breakfast; appears comfortable - *Routine Respiratory Exam Present: decreased breath sounds (posteriorly) - *Routine Cardiovascular Exam Present: irregular rhythm (monitor showing at fib with VR 80's) - *Routine Abdominal Exam Present: soft, normoactive bowel sounds. Absent: tenderness - *Routine Extremities Exam Absent: edema - *Routine Neurological Exam Present: alert, oriented X3 Assessment and Plan (1) Elevated troponin Status: Acute Category: Medical Code(s): R77.8 - Other specified abnormalities of plasma proteins (2) Rapid atrial fibrillation Status: Acute Category: Medical Code(s): I48.91 - Unspecified atrial fibrillation (3) TIA (transient ischemic attack) Status: Acute Category: Medical Code(s): G45.9 - Transient cerebral ischemic attack, unspecified (4) Anxiety disorder Status: Chronic Category: Medical Code(s): F41.9 - Anxiety disorder, unspecified (5) Bilateral carotid artery stenosis Status: Chronic Category: Medical Code(s): I65.23 - Occlusion and stenosis of bilateral carotid arteries (6) CAD (coronary artery disease) Status: Chronic Qualifiers: Coronary Disease-Associated Artery/Lesion type: [place] artery [place] vs. transplanted heart: [place] heart Associated angina: without angina Qualified Code(s): I25.10 - Atherosclerotic heart disease of [place] coronary artery without angina pectoris Category: Medical Code(s): I25.10 - Atherosclerotic heart disease of [place] coronary artery without angina pectoris (7) Hyperlipidemia Status: Chronic Qualifiers: Hyperlipidemia type: mixed hyperlipidemia Qualified Code(s): E78.2 - Mixed hyperlipidemia Category: Medical Code(s): E78.5 - Hyperlipidemia, unspecified (8) Hypertension Status: Chronic Qualifiers: Hypertension type: essential hypertension Qualified Code(s): I10 - Essential (primary) hypertension Category: Medical Code(s): I10 - Essential (primary) hypertension (9) Tobacco abuse Status: Chronic Category: Medical Code(s): Z72.
--- NOTE | 2020-11-14 09:54 | HMH.PNCARD ---
Subjective Date: 11/14/20 Time: 10:00 Principal diagnosis: atrial fib Interval history: 80-year-old female presented to the [facility] ED with increased palpitations and nausea on 11/13/20. Patient states the nausea feeling woke her up from sleep. Patient states she felt as if the room was moving. Upon arrival to the ED patient was noted to be in atrial fibrillation with RVR. Patient does have history of atrial fibrillation. Patient is currently set up for a consultation with Dr. Parmar at [facility] for possible watchman device. Due to GI bleed patient is unable to take anticoagulant. Patient did undergo left heart catheterization November 02, 2020 which revealed patent coronary arteries involving the LAD and dominant circumflex artery, severe stenosis of the nondominant RCA with a normal EF with small degree of apical hokum. Last echocardiogram was 04/23, revealed EF 55% with moderate TR noted. Patient does have history of carotid artery stenosis. CN I from revealed bilateral ICAs 20 to 49%. Patient was started on digoxin and Bystolic for heart rate control. 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 Patient denies chest pain, tightness or pressure. Patient denies shortness of breath. Slight swelling noted of the lower extremity. Apical HOCM was seen on heart cath in 2018. Vital signs stable. Patient states overall she is feeling much better. Echo:Conclusion 1. Moderate biatrial enlargement, normal left ventricular size, mild concentric left ventricular hypertrophy, visually estimated ejection fraction 55% with no regional wall motion abnormality, diastolic parameters are inconclusive. 2. Moderately enlarged right ventricle with normal contractility. 3. Mild mitral and moderate tricuspid regurgitation, calculated right ventricular systolic pressure is 52 mmHg. 4. Thickened and calcified aortic valve without Doppler evidence of aortic stenosis, there is mild aortic insufficiency. 5. Dilated inferior vena cava without significant inspiratory collapse. Discussed plan of care with Dr. Floyd. Patient is okay to be discharged home. Patient will need to keep her appoint with Dr. Parmar on the to discuss watchman device due to her atrial fibrillation. Discussed with patient to follow-up in cardiology office in 1 week or sooner if symptoms persist or develop. Patient is to continue Bystolic and digoxin at home. Thank you for allowing cardiology to participate in the care of this patient. Exam Vital signs and Labs for Last 24 Hours: Temp Pulse Resp BP Pulse Ox 98.3 F 94 H 20 132/72 90 L 11/14/20 08:00 11/14/20 08:28 11/14/20 04:00 11/14/20 06:00 11/14/20 06:00 Laboratory Results - last 24 hr 11/13/20 10:25: Troponin I 0.14 H 11/13/20 13:20: Troponin I 0.12 H I & O for Last 24 hours: Intake & Output 11/11/20 11/12/20 11/13/20 11/14/20 23:59 23:59 23:59 23:59 Intake Total 410 / 410 240 / 240 Output Total 500 / 500 Balance -90 / -90 240 / 240 Weight 94 lb 12.78 oz 93 lb - Constitutional no acute distress, thin, cooperative - *Routine HEENT Exam Head: Present: normocephalic ENT: Present: mucous membranes moist - *Routine Neck Exam Present: supple, full ROM, normal carotid upstroke. Absent: JVD, carotid bruit, lymphadenopathy - *Routine Respiratory Exam Present: accessory muscle use, CTA bilaterally - *Routine Cardiovascular Exam Present: RRR, Normal S1, Normal S2, irregular rhythm. Absent: murmur - *Routine Abdominal Exam Present: soft, normoactive bowel sounds. Absent: firm, rigid - *Routine Extremities Exam Present: full ROM, pulses intact. Absent: edema - *Routine Skin Exam Present: intact, dry, warm - *Routine Neurological Exam Present: alert, oriented X3, CN II-XII intact, moving all extremities, normal speech - Routine Psychiatric Exam Present: normal affect, normal thought pro
--- NOTE | 2020-11-17 16:27 | HMH.DCSUM ---
General - General Admission date:: 11/13/20 Discharge date: 11/14/20 HPI HPI: Ms. Banks is a 80-year-old female with a history of hypertension, hyperlipidemia, arthritis, irritable bowel syndrome, diverticulosis, depression, carotid stenosis, chronic atrial fibrillation, coronary artery disease, and GI bleed who awakened about 330 this a.m. with her head swimming as if the room was moving and nausea. She had no control over her left arm. She did have some left-sided facial discomfort. She denied having any chest pain or shortness of breath. Her vision was initially blurry and she described weak legs. She did get up to the bedside commode when her daughter arrived and had a small amount of diarrhea. She is voiding QS without any difficulty. With arrival to the emergency room her symptoms were resolved. She was in atrial fibrillation with a rapid ventricular response in the 130s. She was given a diltiazem bolus of 10 mg and aspirin and started on a diltiazem drip. Patient was noted to have a known history of paroxysmal atrial fibrillation. She has declined anticoagulation other than an aspirin due to a history of GI bleed. She has been scheduled to see Dr. Parmar in [place] on 11/22/2020 for a watchman device. She recently had cardiac cath for angina and for preoperative clearance for that procedure. She also had recent echocardiogram and carotid duplex. Also noted that she has had carotid duplex on 04/22/2019, 09/22/2019, 04/17/2020, as well as recently on 10/09/2020. Recent cardiac cath revealed patent coronary arteries involving the LAD and dominant circumflex artery with severe stenosis will nondominant right coronary artery which was felt to be clinically insignificant. Carotid ultrasound revealed stenosis of the right proximal internal carotid artery of 20 to 49% and stenosis of the left proximal mall internal artery 20 to 49%. Echocardiogram revealed the following: Conclusion 1. Moderate biatrial enlargement, normal left ventricular size, mild concentric left ventricular hypertrophy, visually estimated ejection fraction 55% with no regional wall motion abnormality, grade 2 diastolic dysfunction seen without tissue Doppler evidence of raise left atrial pressure. 2. Mildly enlarged right ventricle with normal contractility. 3. Mild mitral and moderate tricuspid regurgitation, calculated right ventricular systolic pressure is 42 mmHg. 4. No significant pericardial effusion noted. With this evaluation in the ER CT of the head revealed evidence of left history of carotid surgery and no acute intracranial findings. Chest x-ray revealed elevation of the right hemidiaphragm with right basilar atelectasis. Possibly thought to be bowel interposition on the right or possibly Aerated lung superimposed upon consolidated lung with effusion was also considered. Recommended CT scan. Laboratory data revealed a WBC of 8000 and hemoglobin of 16.4 and hematocrit of 51. Blood chemistries show satisfactory electrolytes with a BUN of 20 and creatinine 0.6. Alkaline phosphatase was elevated at 127 and troponin I was 0.17. Patient was then admitted for further evaluation and treatment to the stepdown area with a Cardizem drip. At time of this exam patient remains comfortable and denies nausea, chest pain, and shortness of breath. Hospital Course Hospital Course: The patient was started on a Cardizem drip. The plan of care was discussed with cardiology and she was started on diltiazem 188 mg p.o. with the intent to DC her Cardizem drip after an hour. They did not expect the patient to convert to sinus rhythm, but wanted her heart rate to be more controllable. They wanted to continue Bystolic 10 mg daily for heart rate and blood pressure control and they ordered an echo. She was also started on Lovenox 40 mg daily. Her speech was clear and she had no obvious neurologic deficits, but she did show decreased agility and rapid alternating mov
== END 2020-11-14 10:49 | disposition home or self-care (01) ==
LOC: ER 07:29 → 2ND 11:59
PROVIDERS: Admitting Provider Family Medicine; Emergency Provider Emergency Medicine; PCP Family Medicine; Visit Provider Family Medicine
DX: I48.20 Chronic atrial fibrillation, unspecified (principal); I10 Essential (primary) hypertension; E78.5 Hyperlipidemia, unspecified; I25.10 Atherosclerotic heart disease of native coronary artery without angina pectoris; Z79.01 Long term (current) use of anticoagulants; Z79.82 Long term (current) use of aspirin; Z88.2 Allergy status to sulfonamides; I65.23 Occlusion and stenosis of bilateral carotid arteries; K21.9 Gastro-esophageal reflux disease without esophagitis; J45.909 Unspecified asthma, uncomplicated; Z95.5 Presence of coronary angioplasty implant and graft; Z72.0 Tobacco use; Z79.51 Long term (current) use of inhaled steroids; Z88.8 Allergy status to other drugs, medicaments and biological substances; Z79.899 Other long term (current) drug therapy
CPT/HCPCS: 36415; 70450; 71045; 80053; 84484; 85025; 87581; 87633; 87798; 93005; 93306; 96365; 96375; 99284; G0378

== ENCOUNTER → 2020-11-27 10:01 | Outpatient (POV) | payer MEDICARE, SELFPAY | PROVIDERS: Visit Provider Dermatology | DX: Z00.00 Encounter for general adult medical examination without abnormal findings (principal) ==

== ENCOUNTER → 2021-01-03 13:00 | Outpatient (CLI) | payer MEDICARE, SELFPAY ==
--- NOTE | 2021-01-03 13:02 | XR_ITS ---
PROCEDURE: XR DEXA AXIAL SKELETON CLINICAL HISTORY: OSTEOPENIA COMPARISON: No exams were available for comparison FINDINGS: The right hip BMD is 0.571 with a T-score of -3.0. The left hip BMD is 0.556 with a T-score of -3.2. The lumbar spine BMD is 0.85 with a T-score of -1.7. IMPRESSION: This patient is considered osteoporotic according to the World Health Organization criteria. Fracture risk is high. Treatment is advised. Based on these results a follow-up exam is recommended in 1 year. Dictated by: Maximiliano Isaac MD 01/03/2021 15:11 Maximiliano Isaac MD in [place] 01/03/2021 15:11
== END ==
PROVIDERS: PCP Family Medicine; Visit Provider Family Medicine
DX: M85.89 Other specified disorders of bone density and structure, multiple sites (principal)
CPT/HCPCS: 77080

== ENCOUNTER → 2021-01-12 10:29 | Outpatient (CLI) | payer MEDICARE, SELFPAY | PROVIDERS: Visit Provider Obstetrics & Gynecology Gynecology | DX: Z01.812 Encounter for preprocedural laboratory examination (principal); Z20.822 Contact with and (suspected) exposure to COVID-19 | CPT/HCPCS: U0003 ==

== ENCOUNTER → 2021-05-28 08:18 | Outpatient (CLI) | payer MEDICARE, SELFPAY ==
--- NOTE | 2021-05-28 08:21 | US_ITS ---
PROCEDURE: US AORTA CLINICAL INDICATION: AAA COMPARISON: CT CT ABDOMEN PELVIS WO CON from 08/08/2020 FINDINGS: There is calcific atherosclerosis of the aorta. There is calcific atherosclerosis of bilateral proximal common iliac arteries. Bilateral iliac arteries and aorta are patent. No evidence of abdominal aortic aneurysm. IMPRESSION: 1. No evidence of abdominal aortic aneurysm. 2. Severe vascular disease with extensive calcific atherosclerosis. Dictated by: Connie Vargas MD 05/30/2021 08:56 Connie Vargas MD in [facility] 05/30/2021 08:56
== END ==
PROVIDERS: PCP Family Medicine; Visit Provider Family Medicine
DX: I71.4 Abdominal aortic aneurysm, without rupture (principal)
CPT/HCPCS: 76770

== ENCOUNTER 2022-03-08 18:36 | Observation (INO) | payer MEDICARE, SELFPAY ==
[2022-03-08] VITALS (8 sets, daily range): BP systolic 148–198; BP diastolic 77–115; PULSE 65–109; RESP 12–20; TEMP 36.6–36.9; O2SAT 94–98; BMI 17.4; BMI 16.2
--- NOTE | 2022-03-08 18:38 | XR_ITS ---
PROCEDURE INFORMATION: Exam: XR Chest Exam date and time: 03/08/22 06:55 PM Age: 82 years old Clinical indication: Chest wall pain; Additional info: Chest pain TECHNIQUE: Imaging protocol: Radiologic exam of the chest. Views: 1 view. COMPARISON: CR XR CHEST PORTABLE 11/13/20 06:53 AM FINDINGS: Lungs: Improving bibasilar aeration since comparison. Pleural spaces: Resolved right pleural effusion. Heart/Mediastinum: Unremarkable. No cardiomegaly. Vasculature: Right carotid stent in good position. Bones/joints: Unremarkable. IMPRESSION: No acute cardiopulmonary findings.
--- NOTE | 2022-03-08 18:38 | ECG_ITS ---
APPROVED REPORT Exam: Resting ECG HR:89 bpm ECG Measurements Heart Rate 89 AXES QRSd 86 QRS 42 QT 322 T -53 QTc 369 Conclusion ATRIAL FIBRILLATION ANTEROSEPTAL MYOCARDIAL INFARCTION , PROBABLY OLD [40+ ms Q WAVE IN V1-V4] MARKED ST DEPRESSION, CONSIDER SUBENDOCARDIAL INJURY [0.2+ mV ST DEPRESSION] ACUTE RI UNCONFIRMED REPORT Electronically signed by : Janes Naranjo MD 03/09/2022 09:31:29
--- NOTE | 2022-03-08 18:40 | PC.NURSE ---
1838 ED MD AT BEDSIDE FOR EVALUATION
--- NOTE | 2022-03-08 18:44 | PC.NURSE ---
1844 XR AT BEDSIDE
--- NOTE | 2022-03-08 18:48 | HMH.EDGENADL ---
ED Disposition Clinical Impression: Epigastric pain, Tobacco use disorder, moderate, dependence Chest pain Qualifiers: Chest pain type: precordial pain Qualified Code(s): R07.2 - Precordial pain Diarrhea Qualifiers: Diarrhea type: functional diarrhea Qualified Code(s): K59.1 - Functional diarrhea Disposition: Admitted as Observation Condition on Discharge: Fair Time of Disposition: 19:39 - Critical Care Critical Care Time: No Attestation: On 03/08/22, the high probability of a clinically significant, sudden or life threatening deterioration of the following system(s) required my full and direct attention, intervention and personal management. The time I documented below is in addition to time spent performing reported procedures but includes the following listed in this critical care notation. Medical Decision Making - Medical Records Medical records reviewed: Yes: I reviewed the patient's medical records. - Jorge Inquiry Pt receiving controlled substance: No Vital Signs: 03/08/22 18:36 Temperature 98.4 F Temperature Source Oral Pulse Rate [Radial] 109 H Respiratory Rate 18 Blood Pressure [Right Arm] 185/99 H Blood Pressure Mean [Right Arm] 127 Blood Pressure Source [Right Arm] Automatic Cuff Blood Pressure Position [Right Arm] Sitting 02 Sat by Pulse Oximetry 96 Oxygen Delivery Method Room Air - Lab Data Lab Results 03/08/22 18:45: WBC 7.3, RBC 5.09, Hgb 16.8 H, Hct 53.6 H, MCV 105.3 H, MCH 33.1 H, MCHC 31.4 L, RDW 13.2, Plt Count 199, MPV 9.2, Neut % (Auto) 67.2, Lymph % (Auto) 23.8, [place] % (Auto) 7.4, Eos % (Auto) 0.8, Baso % (Auto) 0.8, Neut # (Auto) 4.9, Lymph # (Auto) 1.7, [place] # (Auto) 0.5, Eos # (Auto) 0.1, Baso # (Auto) 0.1 03/08/22 18:45: Sodium 142, Potassium 3.0 L, Chloride 102, Carbon Dioxide 32 H, Anion Gap 11.0, BUN 14, Creatinine 0.70, Estimated Creat Clear 31, Estimated GFR 81, Est GFR ( Amer) 97, Glucose 129 H, Calcium 9.7, Total Bilirubin 0.5, AST 24, ALT 31, Alkaline Phosphatase 180 H, Troponin I 0.01, Total Protein 6.9, Albumin 4.2, Globulin 2.7, Albumin/Globulin Ratio 1.6, Lipase 95 03/08/22 18:45: Lactate 1.2 03/08/22 18:45: Digoxin 1.10 03/08/22 19:04: SARS-CoV-2 (PCR) Not detected, Influenza A Untype (PCR) Not detected, Influenza Type B (PCR) Not detected Result diagrams: 03/08/22 18:45 03/08/22 18:45 Orders (Tests/Meds): ED MEDICATIONS Discontinued Medications Generic Name Dose Route Start Last Admin Trade Name Freq PRN Reason Stop Dose Admin Aspirin 325 mg 03/08/22 18:38 03/08/22 18:48 Aspirin 325mg Tablet PO 03/08/22 18:39 325 mg ONCE ONE Administration Gabapentin 100 mg 03/08/22 19:37 Gabapentin 100mg Capsule PO 03/08/22 19:38 ONCE ONE Potassium Chloride 20 meq 03/08/22 19:25 03/08/22 19:27 Potassium Chloride 20meq Tab PO 03/08/22 19:26 20 meq ONCE ONE Administration ORDERS Category Date Time Status Troponin I Q3H Lab 03/08/22 21:45 Ordered Troponin I Q3H Lab 03/09/22 00:45 Ordered ECG Request by /Steven Stat Y 03/08/22 18:38 Ordered - ECG Data Tracing #1 Atrial fibrillation with rate of 89 bpm. QRS 86, QTc 369. T wave inversion in 2, 3, aVF. Slight ST segment elevation in aVR. Current EKG concerning for ischemia. Compared to EKG from 10/09/2020 is similar Medical Decision Narrative: In summary this is an 82-year-old female presenting to the emergency department with epigastric, chest pain. Patient clinically stable on arrival. Tachycardic in atrial fibrillation. Will obtain CBC, CMP, chest x-ray, EKG, troponin profile. Reviewed patient's EKG in real-time. It is concerning for inferior ischemia. Similar pattern to prior EKGs, but worse Review shows that patient has atrial fibrillation, maintained on diltiazem, bystolic and digoxin. No anticoagulation due to history of GI bleeds. She also takes aspirin and Plavix. Cardiac catheterization from 11/02/[address] Severe [address]
--- NOTE | 2022-03-08 18:51 | PC.NURSE ---
PT PLACED IN A GOWN AT THIS TIME
--- NOTE | 2022-03-08 18:55 | ECG_ITS ---
APPROVED REPORT Exam: Resting ECG HR:88 bpm ECG Measurements Heart Rate 88 AXES QRSd 85 QRS 35 QT 351 T -53 QTc 396 Conclusion ATRIAL FIBRILLATION ANTEROSEPTAL MYOCARDIAL INFARCTION , OF INDETERMINATE AGE [40+ ms Q WAVE IN V1-V4] ST DEPRESSION, CONSIDER SUBENDOCARDIAL INJURY [0.1+ mV ST DEPRESSION] ABNORMAL ECG UNCONFIRMED REPORT Electronically signed by : Janes Naranjo MD 03/09/2022 09:31:25
[2022-03-08 19:00] LABS: Basophils # 0.1 K/mm3 (0-0.2); Basophils % 0.8 % (0.1-2.0); Eosinophils # 0.1 K/mm3 (0.0-0.4); Eosinophils % 0.8 % (0.1-12.0); Hematocrit 53.6 % (37.0-47.0); Hemoglobin 16.8 g/dL (12.2-16.2); Lymphocytes # 1.7 K/mm3 (0.7-4.5); Lymphocytes % 23.8 % (10-50); Mean Corpuscular HGB Conc 31.4 g/dL (31.8-35.4); Mean Corpuscular Hemoglobin 33.1 pg (27.0-31.2); Mean Corpuscular Volume 105.3 fl (81-99); Mean Platelet Volume 9.2 fl (7.4-10.4); Monocytes # 0.5 K/mm3 (0.1-1.0); Monocytes % 7.4 % (1.7-9.3); Neutrophils # 4.9 K/mm3 (1.8-7.8); Neutrophils % 67.2 % (37.0-80.0); Platelet Count 199 K/mm3 (142-424); Red Blood Count 5.09 M/mm3 (4.20-5.40); Red Cell Distribution Width 13.2 % (11.5-17.5); White Blood Count 7.3 K/mm3 (4.8-10.8)
[2022-03-08 19:07] LABS: Coronavirus 19, PCR Not Detected (NotDetected); Influenza A, PCR Not Detected (NotDetected); Influenza B, PCR Not Detected (NotDetected)
[2022-03-08 19:08] LABS: Chloride 102 mmol/L (98-107); Sodium 142 mmol/L (136-145)
[2022-03-08 19:10] LABS: Alanine Aminotransferase 31 U/L (12-78); Aspartate Amino Transferase 24 U/L (14-36); Blood Urea Nitrogen 14 mg/dl (7-17); Creatinine Clearance Estimated 31 mL/min (50-200); Estimated Glomerular Filt Rate 81 ml/min (>60); GFR (African American) 97 ML/MIN (>60); Lactic Acid 1.2 mmol/L (0.7-2.1)
[2022-03-08 19:11] LABS: Albumin Level 4.2 g/dl (3.5-5.0); Albumin/Globulin Ratio 1.6 (1.1-1.8); Alkaline Phosphatase 180 U/L (38-126); Bilirubin,Total 0.5 mg/dl (0.2-1.3); Calcium 9.7 mg/dl (8.4-10.2); Carbon Dioxide 32 mmol/L (22.0-30.0); Globulin 2.7 g/dL (1.3-3.2); Glucose 129 mg/dl (74-100); Lipase 95 U/L (23-300); Total Protein,Serum 6.9 g/dl (6.3-8.2)
--- NOTE | 2022-03-08 19:16 | PC.NURSE ---
Amanda from lab called a critical potassium of 3.0. Notified . No new orders.
[2022-03-08 19:22] LABS: Troponin I 0.01 ng/ml (0.00-0.034)
--- NOTE | 2022-03-08 19:39 | PC.NURSE ---
Patient requested potassium be crushed and given in applesauce. Per patient, large pills make her nauseous.
--- NOTE | 2022-03-08 19:40 | PC.NURSE ---
House notified of pt admission and need for bed assignment
--- NOTE | 2022-03-08 19:47 | PC.NURSE ---
PATIENT ADMITTED TO 204 OBSERVATION DX CHEST PAIN TO SERVICE OF DR. PAGAN.
--- NOTE | 2022-03-08 19:47 | PC.NURSE ---
Patient refused gabapentin, states that she will take the medicine right before bed.
--- NOTE | 2022-03-08 20:21 | CT_ITS ---
PROCEDURE INFORMATION: Exam: CT Abdomen And Pelvis With Contrast Exam date and time: 03/08/22 08:38 PM Age: 82 years old Clinical indication: Abdominal pain; Additional info: Abdominal pain, concern for infection TECHNIQUE: Imaging protocol: Computed tomography of the abdomen and pelvis with contrast. Radiation optimization: All CT scans at this facility use at least one of these dose optimization techniques: automated exposure control; mA and/or kV adjustment per patient size (includes targeted exams where dose is matched to clinical indication); or iterative reconstruction. Contrast material: ISOVUE; Contrast volume: 75 ml; Contrast route: IV; COMPARISON: CT ABDOMEN PELVIS WO CON 08/08/20 08:40 AM FINDINGS: Tubes, catheters and devices: None noted. Lungs: Lung bases appear clear. Heart: Moderate cardiomegaly. No significant pericardial effusion. Liver: Normal. No mass. Gallbladder and bile ducts: Normal. No calcified stones. No ductal dilation. Pancreas: Normal. No ductal dilation. Spleen: Normal. No splenomegaly. Adrenal glands: Normal. No mass. Kidneys and ureters: Normal. No hydronephrosis. Stomach and bowel: Unremarkable. No obstruction. No mucosal thickening. Appendix: No evidence of appendicitis. Intraperitoneal space: Unremarkable. No free air. No significant fluid collection. Retroperitoneal space: No significant retroperitoneal inflammatory changes are noted. 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 Consider chronic mesenteric ischemia. No abdominal aortic aneurysm. Lymph nodes: Unremarkable. No enlarged lymph nodes. Urinary bladder: Unremarkable as visualized. Reproductive: Hysterectomy. Bones/joints: Unremarkable. No acute fracture. Soft tissues: Unremarkable. IMPRESSION: 1. 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 Consider chronic mesenteric ischemia. 2. Hysterectomy. 3. Moderate cardiomegaly without overt congestive failure.
--- NOTE | 2022-03-08 20:34 | PC.NURSE ---
Pt gone to RAD
--- NOTE | 2022-03-08 21:01 | HMH.HP ---
*Admission Date: 03/08/22 *Chief complaint: Chest pain and abdominal pain *History of present illness: This 82-year-old white female with known coronary artery disease and irritable bowel syndrome presents in the emergency room at [facility] this evening. She has been not feeling well for 3 days. Her bowel has been upset she has had multiple loose stools. She says 7 today. She is also had some chest discomfort. She typically has some degree of angina. She has chronic atrial fibrillation and known coronary artery disease. She has stents in her carotid arteries. She has a strong smoking history. She seems relatively stable in the emergency room. Her potassium was found to be 3. Due to the chronic nature of her illness and her known coronary artery disease she is admitted for observation and treatment. [facility] History Medical History: Reports:: Anxiety, Asthma, Atrial Fibrillation, Carotid Stenosis, Coronary Artery Disease, Deep Vein Thrombosis, Depression, Gastroesophageal Reflux Disease(GERD), Heart Murmur, Hyperlipidemia, Hypertension, Myocardial Infarction, Palpitations, Renal Insufficiency Denies:: Cancer, Diabetes Mellitus Type 1, Diabetes Mellitus Type 2, Internal Pacemaker, MRSA *Have you ever received a pneumonia vaccine?: Yes *Have you received a flu vaccine this season?: Yes Other Medical History: Reports: Arthritis, Hoarseness, Hormone Therapy, Sinus Problems, Other Laterality Cases: Right: Carpal Tunnel Release Other Surgeries: Yes: Cardiac Catheterization, Cholecystectomy, Coronary Stent, Hysterectomy-Total, Other (Right caratoid endarterectomy, rectocele, cystocele). No: Pacemaker Amputation: No Fractures: Yes (Left Rib) - *Social History Smoking Status: Current every day smoker Tobacco Type: cigarettes # Packs/Day (cigarettes): 2 #Yrs smoked (if former smoker): 49 Alcohol Intake: never Substance Use Type: denies use *Occupational Status:: retired Housing: house Household Members: family, none *Travel in the last 8 weeks: None - Psychiatric History Pschychiatric History:: Reports:: Anxiety, Depression Family Hx:: Diabetes, Heart Attack, Hypertension Review of Systems - Constitutional Reports fatigue, Reports lack of energy, Denies body ache(s), Denies chills, Denies fever(s) - Eyes Denies change in vision - ENT Reports poor balance - *Cardiovascular Reports chest pain, Reports chest pain at rest, Reports chest pain with activity, Denies shortness of breath, Denies leg swelling, Denies radiating jaw, neck or arm pain - *Respiratory Denies chest congestion, Denies cough, Denies shortness of breath - *Gastrointestinal Reports abdominal pain, Reports belching, Reports bloating, Reports excessive passing of gas, Reports loose stools, Denies bright, red blood in stools - *Musculoskeletal Reports decreased muscle mass, Reports muscle weakness, Denies joint pain - Integumentary/Breasts Denies bleeding lesions - *Neurologic Denies dizziness, Denies headache(s), Denies dizziness - Psychiatric Reports anxiety - Allergic/Immunologic Reports GI upset with certain foods, Denies tongue swelling Meds Home Medications Medication Instructions Recorded Confirmed Type ALPRAZolam [Xanax 0.25mg tab] 0.25 - 0.5 mg PO Q6HP PRN 04/21/19 02/25/22 History Gabapentin [Gabapentin 100mg Cap] 100 mg PO HS 04/21/19 02/25/22 History Montelukast Sodium [Singulair 10mg 10 mg PO DAILY 04/21/19 02/25/22 History tablet] atorvastatin 10 mg tablet 10 mg PO QODHS tab 05/05/19 02/25/22 History Aspirin [Aspirin 81mg EC Tab] 81 mg PO DAILY 07/26/19 02/25/22 History Acetaminophen [Tylenol Arthritis] 650 mg PO BID 11/13/20 02/25/22 History Albuterol Sulfate [Albuterol 2 puffs IH Q4HP PRN 11/13/20 02/25/22 History Sulfate Hfa] Buspirone HCl [Buspar 10mg 10 mg PO TID 11/13/20 02/25/22 History tablet] Dicyclomine HCl [Bentyl 10mg 10 mg PO QIDP PRN 11/13/20 02/25/22 History capsule] [place]
--- NOTE | 2022-03-08 21:01 | PC.NURSE ---
pt to floor via wheelchair at 2100
[2022-03-09] VITALS: PULSE 80
[2022-03-09 01:10] LABS: Lactic Acid 0.7 mmol/L (0.7-2.1)
[2022-03-09 04:00] VITALS: BP 159/83; PULSE 50; PULSE 63; RESP 16; TEMP 36.6; O2SAT 95
--- NOTE | 2022-03-09 06:04 | PC.NURSE ---
pt has rested very well this shift. she has had no c/o cp or soa. she is a&o X4. no skin issues. a-fib on tele with HR 50-80. SBP has been 148-191. she has ambulated to the bathroom with a standby assist. no needs at this time. call light within reach .
[2022-03-09 07:38] LABS: Chloride 105 mmol/L (98-107); Potassium 3.3 mmoL/L (3.5-5.1); Sodium 141 mmol/L (136-145)
[2022-03-09 07:41] LABS: Anion Gap 7.3 mEq/L (5-15); Blood Urea Nitrogen 12 mg/dl (7-17); Calcium 9.1 mg/dl (8.4-10.2); Carbon Dioxide 32 mmol/L (22.0-30.0); Creatinine Clearance Estimated 29 mL/min (50-200); Estimated Glomerular Filt Rate 96 ml/min (>60); GFR (African American) 116 ML/MIN (>60); Glucose 92 mg/dl (74-100)
[2022-03-09 07:50] LABS: Troponin I 0.02 ng/ml (0.00-0.034)
[2022-03-09 08:00] VITALS: BP 161/61; PULSE 71; PULSE 74; RESP 24; TEMP 36.6; O2SAT 96
--- NOTE | 2022-03-09 10:20 | P.CONPHA_ITS ---
[facility] VTE Monitoring - Patient Demographics Admission date: 03/08/22 Report Date: 03/09/22 Time: 10:20 Allergies/Adverse Reactions: Patient Allergies beef derived (bovine) Allergy (Verified 03/08/22 21:48) Unknown allergy reaction Milk Containing Products Allergy (Verified 03/08/22 21:48) Unknown allergy reaction Penicillins Allergy (Verified 03/08/22 21:48) Unknown allergy reaction Sulfa (Sulfonamide Antibiotics) Allergy (Verified 03/08/22 21:48) Height: 1.57 m Weight: 40.398 kg Patient Problems: Current Active Problems Anxiety (Acute) Chest pain (Acute) Epigastric pain (Acute) Diarrhea (Acute) Tobacco use disorder, moderate, dependence (Acute) Angina, class II (Acute) - VTE Risk Labs: VTE Related Lab Results Hgb 16.8 g/dL (12.2-16.2) H 03/08/22 18:45 Hct 53.6 % (37.0-47.0) H 03/08/22 18:45 Plt Count 199 K/mm3 (142-424) 03/08/22 18:45 BUN 12 mg/dl (7-17) 03/09/22 06:42 Creatinine 0.60 mg/dl (0.52-1.04) 03/09/22 06:42 Estimated Creat Clear 29 mL/min (50-200) 03/09/22 06:42 Was VTE Risk Assessment Performed: Yes VTE Score: 8 VTE Risk Level: Moderate Risk Clinical Trial Participant: No - Prophylaxis VTE Prophylaxis Ordered?: Yes Types of VTE Prophylaxis: Refused Location of Applied Device: Refused
--- NOTE | 2022-03-09 10:25 | HMH.PHAINT ---
MEDICATION RECONCILIATION COMPLETE USING EXTERNAL PHARMACY FILL HISTORY AND RECENT CARDIOLOGY OFFICE VISIT NOTE (02/2022)
--- NOTE | 2022-03-09 10:30 | PC.NURSE ---
Spoke with Dr Floyd he states that no cards consult today okay to make pt cardiac diet. Will not cath today.
[2022-03-09 12:00] VITALS: BP 148/93; PULSE 66; PULSE 74; RESP 20; TEMP 36.7; O2SAT 94
[2022-03-09 12:11] VITALS: PULSE 84
--- NOTE | 2022-03-09 12:18 | HMH.ACPN2 ---
Internal Medicine - PN: Subj *Date: 03/09/22 *Time: 12:18 Interval history: She feels better this morning. She has had 1 loose stool this morning. No blood. She has recently seen blood in her bowel movements. She is hungry and would like to eat something this morning. There has been communication with Dr. Floyd this morning. Her cardiac status seems stable. Her CT of her abdomen showed evidence of abdominal vascular disease. 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 Consider chronic mesenteric ischemia. No abdominal aortic aneurysm. Lymph nodes: Unremarkable. No enlarged lymph nodes. Urinary bladder: Unremarkable as visualized. Reproductive: Hysterectomy. Bones/joints: Unremarkable. No acute fracture. Soft tissues: Unremarkable. IMPRESSION: 1. 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 Consider chronic mesenteric ischemia. 2. Hysterectomy. 3. Moderate cardiomegaly without overt congestive failure. She seems stable and ready for discharge this morning. I will not change any medications at this point. We need to arrange evaluation at the [facility] by Dr. Sukumar Smith regarding this finding of bowel ischemia. Exam Vital signs and Labs for Last 24 Hours: Temp Pulse Resp BP Pulse Ox 97.9 F 84 24 161/61 H 96 03/09/22 08:00 03/09/22 12:11 03/09/22 08:00 03/09/22 08:00 03/09/22 08:00 Laboratory Results - last 24 hr 03/08/22 18:45: WBC 7.3, RBC 5.09, Hgb 16.8 H, Hct 53.6 H, MCV 105.3 H, MCH 33.1 H, MCHC 31.4 L, RDW 13.2, Plt Count 199, MPV 9.2, Neut % (Auto) 67.2, Lymph % (Auto) 23.8, [place] % (Auto) 7.4, Eos % (Auto) 0.8, Baso % (Auto) 0.8, Neut # (Auto) 4.9, Lymph # (Auto) 1.7, [place] # (Auto) 0.5, Eos # (Auto) 0.1, Baso # (Auto) 0.1 03/08/22 18:45: Sodium 142, Potassium 3.0 L, Chloride 102, Carbon Dioxide 32 H, Anion Gap 11.0, BUN 14, Creatinine 0.70, Estimated Creat Clear 31, Estimated GFR 81, Est GFR ( Amer) 97, Glucose 129 H, Calcium 9.7, Total Bilirubin 0.5, AST 24, ALT 31, Alkaline Phosphatase 180 H, Troponin I 0.01, Total Protein 6.9, Albumin 4.2, Globulin 2.7, Albumin/Globulin Ratio 1.6, Lipase 95 03/08/22 18:45: Lactate 1.2 03/08/22 18:45: Digoxin 1.10 03/08/22 19:04: SARS-CoV-2 (PCR) Not detected, Influenza A Untype (PCR) Not detected, Influenza Type B (PCR) Not detected 03/08/22 21:28: Digoxin 1.10 03/09/22 00:55: Lactate 0.7 03/09/22 06:42: Sodium 141, Potassium 3.3 L, Chloride 105, Carbon Dioxide 32 H, Anion Gap 7.3, BUN 12, Creatinine 0.60, Estimated Creat Clear 29, Estimated GFR 96, Est GFR ( Amer) 116, Glucose 92 D, Calcium 9.1 03/09/22 06:42: Troponin I 0.02 I & O for Last 24 hours: Intake & Output 03/07/22 03/08/22 03/09/22 03/10/22 11:59 11:59 11:59 11:59 Weight 89 lb 1 oz - Constitutional no acute distress - *Routine HEENT Exam Head: Present: normocephalic Eye: Present: EOMI, PERRL ENT: Present: mucous membranes moist - *Routine Neck Exam Present: supple. Absent: lymphadenopathy - *Routine Respiratory Exam Present: decreased breath sounds, CTA bilaterally - *Routine Cardiovascular Exam Present: RRR, irregular rhythm - *Routine Abdominal Exam Present: soft. Absent: normoactive bowel sounds (Hyperactive), tenderness - *Routine Extremities Exam Absent: cyanosis, clubbing, edema - *Routine Skin Exam Present: warm. Absent: rash - *Routine Neurological Exam Present: alert, oriented X3 Assessment and Plan (1) Ischemic bowel disease Status: Acute Category: Medical Code(s): K55.9 - Vascular disorder of intestine, unspecified (2) Epigastric pain Status: Acute Category: Medical Code(s): R10.13 - Epigastric pain (3) Chest pain Status: Acute Qualifiers: Chest pain type: precordial pain Qualified Code(s): R07.2 - Precordial pain Categor
--- NOTE | 2022-03-09 12:48 | HMH.PHAINT ---
DISCHARGE MEDICATION COUNSELING PROVIDED. DISCUSSED THE CHANGE IN POTASSIUM FROM ONE DAILY TO TWICE DAILY. PATIENT STATES IT UPSETS HER STOMACH AND OCCASIONALLY CAUSES DIZZINESS. RECOMMENDED TAKING WITH FOOD TO HELP MINIMIZE NAUSEA. PATIENT VERBALIZED NO QUESTIONS AT THIS TIME.
--- NOTE | 2022-03-09 13:08 | PC.NURSE ---
Dr Puente in to see pt. He is discharging her home. states its okay to get outpatient stool sample
--- NOTE | 2022-03-09 13:34 | PC.NURSE ---
pt discharge education provided. I gave her the supplies and instructions to collect her outpatient stool sample and bring it to lab. verbalized understandoing of follow up appts and medications. IV discontinued. family @ bedside during education
--- NOTE | 2022-03-11 15:18 | CARE MANAGER ---
Contacted patient related to discharge from hospital. She states she didn't moss picker her Potassium as she has some at home. She has not called to make follow up appt yet with doctor, but is going to tomorrow. She denies any questions or concerns at this time. ROGER Bryan
--- NOTE | 2022-03-11 21:37 | HMH.DCSUM ---
General - General Admission date:: 03/08/22 Discharge date: 03/09/22 HPI HPI: This 82-year-old white female with known coronary artery disease and irritable bowel syndrome presents in the emergency room at [facility] this evening. She has been not feeling well for 3 days. Her bowel has been upset she has had multiple loose stools. She says 7 today. She is also had some chest discomfort. She typically has some degree of angina. She has chronic atrial fibrillation and known coronary artery disease. She has stents in her carotid arteries. She has a strong smoking history. She seems relatively stable in the emergency room. Her potassium was found to be 3. Due to the chronic nature of her illness and her known coronary artery disease she is admitted for observation and treatment. Hospital Course Hospital Course: Patient was admitted overnight for observation. Her abdominal and pelvic CT showed severe stenosis of the celiac origin with occlusion of the proximal SMA. Radiology wanted to consider chronic mesenteric ischemia. There was also moderate cardiomegaly without overt congestive heart failure. By 03/09/2022, she felt better and had only had 1 loose stool and no blood. She was hungry. There was communication with Dr. Floyd and her cardiac status seems stable. It was felt her abdominal vascular disease could be a huge factor in her symptoms including her past symptoms of irritable bowel. It was felt she could discharge and arrange evaluation at the [facility] by Dr. Girard regarding her bowel ischemia. She was discharged and will follow up at . Objective Vital signs: Temp Pulse Resp BP Pulse Ox 98.1 F 84 20 148/93 H 94 L 03/09/22 12:00 03/09/22 12:11 03/09/22 12:00 03/09/22 12:03/09/22 12:00 Narrative: - Constitutional no acute distress, mild distress - *Routine HEENT Exam Head: Present: normocephalic Eye: Present: EOMI, PERRL ENT: Present: mucous membranes moist - *Routine Neck Exam Present: supple. Absent: JVD, carotid bruit, lymphadenopathy - *Routine Respiratory Exam Present: decreased breath sounds. Absent: rhonchi, stridor, wheezes - *Routine Cardiovascular Exam Present: irregular rhythm - *Routine Abdominal Exam Present: soft, distended. Absent: normoactive bowel sounds (Hyper), tenderness, guarding, firm, rigid - *Routine Rectal Exam Rectal:: deferred - *Routine Genitalia Exam Genitalia:: deferred - *Routine Extremities Exam Absent: cyanosis (Color and circulation is good), clubbing, edema - *Routine Skin Exam Present: intact, warm. Absent: rash - *Routine Neurological Exam Present: alert, oriented X3 DS: Diagnosis - Discharge Diagnosis (1) Ischemic bowel disease Status: Acute (2) Epigastric pain Status: Acute (3) Chest pain Status: Acute (4) Diarrhea Status: Acute (5) Angina, class II Status: Acute (6) Tobacco use disorder, moderate, dependence Status: Acute (7) Anxiety Status: Acute Discharge Plan - Patient Discharge Instructions ACTIVITY: Continue current activity DIET: advance to your usual diet Patient Instructions: Ischemic Bowel Disease, DI for Anxiety -- Adult, DI for Chest Pain - Follow up Plan Follow up with: Nazanin Puente MD [Primary Care Provider] - (please call for appointment) Disposition: Home, Self-Care Condition at discharge:: Improved (30 Kleenex and there) Home Medications: Home Medications Medication Instructions Recorded Confirmed Type ALPRAZolam [Xanax 0.25mg tab] 0.25 - 0.5 mg PO Q6HP PRN 04/21/19 03/08/22 History Gabapentin [Gabapentin 100mg Cap] 100 mg PO HS 04/21/19 03/08/22 History Montelukast Sodium [Singulair 10mg 10 mg PO DAILY 04/21/19 03/08/22 History tablet] atorvastatin 10 mg tablet 10 mg PO QODHS tab 05/05/19 03/08/22 History Aspirin [Aspirin 81mg EC Tab] 81 mg PO DAILY 07/26/19 03/08/22 Histo
== END 2022-03-09 14:00 | disposition home or self-care (01) ==
LOC: ER 19:39 → 2ND 22:08
PROVIDERS: Student in an Organized Health Care Education/Training Program; Admitting Provider Family Medicine; Emergency Provider Emergency Medicine; PCP Family Medicine; Visit Provider Family Medicine
DX: R07.9 Chest pain, unspecified (principal); I25.118 Atherosclerotic heart disease of native coronary artery with other forms of angina pectoris; F17.210 Nicotine dependence, cigarettes, uncomplicated; F41.9 Anxiety disorder, unspecified; I77.1 Stricture of artery; K55.9 Vascular disorder of intestine, unspecified; Z20.822 Contact with and (suspected) exposure to COVID-19; I11.0 Hypertensive heart disease with heart failure; I48.91 Unspecified atrial fibrillation
CPT/HCPCS: G0378; 71045; 74177; 80048; 80053; 80162; 83605; 83690; 84484; 85025; 93005; 99285; C9803; Q9967; U0003; U0005

== ENCOUNTER → 2022-03-11 15:44 | Outpatient (CLI) | payer MEDICARE, SELFPAY ==
[2022-03-11 17:46] LABS: Occult Blood,Stool Positive (Negative)
== END ==
PROVIDERS: PCP Family Medicine; Visit Provider Family Medicine
DX: R19.5 Other fecal abnormalities (principal)
CPT/HCPCS: 82272; G0328

== ENCOUNTER → 2022-03-13 16:17 | Outpatient (CLI) | payer MEDICARE, SELFPAY ==
[2022-03-13 16:28] LABS: Adenovirus F 40/41, stool Not Detected (NotDetected); Astrovirus Not Detected (NotDetected); Campylobacter Not Detected (NotDetected); Clostridium Difficile A/B, PCR Not Detected (NotDetected); Cryptosporidium Not Detected (NotDetected); Cyclospora Cayetanesis Not Detected (NotDetected); Entamoeba histolytica Not Detected (NotDetected); Enteroaggregative E coli Not Detected (NotDetected); Enterotoxigenic E coli Not Detected (NotDetected); Giardia lamblia Not Detected (NotDetected); Norovirus Not Detected (NotDetected); Plesimonas Shigalloides, PCR Not Detected (NotDetected); Rotavirus A Not Detected (NotDetected); Salmonella, PCR Not Detected (NotDetected); Sapovirus Not Detected (NotDetected); Shiga-like toxin E coli Not Detected (NotDetected); Shigella Enterovasive E coli Not Detected (NotDetected); Vibrio Cholerae Not Detected (NotDetected); Vibrio, PCR Not Detected (NotDetected); Yersinia Entercolitica, PCR Not Detected (NotDetected)
[2022-03-13 22:43] LABS: Enteropathogenic E coli Detected (NotDetected)
== END ==
PROVIDERS: PCP Family Medicine; Visit Provider Family Medicine
DX: R19.7 Diarrhea, unspecified (principal); A04.0 Enteropathogenic Escherichia coli infection
CPT/HCPCS: 87506

== ENCOUNTER → 2022-03-25 15:02 | Outpatient (CLI) | payer MEDICARE, SELFPAY ==
[2022-03-25 16:14] LABS: Basophils # 0.1 K/mm3 (0-0.2); Basophils % 1.1 % (0.1-2.0); Eosinophils # 0.1 K/mm3 (0.0-0.4); Eosinophils % 0.7 % (0.1-12.0); Hematocrit 51.8 % (37.0-47.0); Hemoglobin 15.5 g/dL (12.2-16.2); Lymphocytes # 1.4 K/mm3 (0.7-4.5); Lymphocytes % 22.8 % (10-50); Mean Corpuscular HGB Conc 29.9 g/dL (31.8-35.4); Mean Corpuscular Hemoglobin 32.4 pg (27.0-31.2); Mean Corpuscular Volume 108.2 fl (81-99); Mean Platelet Volume 9.1 fl (7.4-10.4); Monocytes # 0.4 K/mm3 (0.1-1.0); Monocytes % 6.9 % (1.7-9.3); Neutrophils # 4.3 K/mm3 (1.8-7.8); Neutrophils % 68.3 % (37.0-80.0); Platelet Count 199 K/mm3 (142-424); Red Blood Count 4.79 M/mm3 (4.20-5.40); Red Cell Distribution Width 13.3 % (11.5-17.5); White Blood Count 6.3 K/mm3 (4.8-10.8)
== END ==
PROVIDERS: PCP Family Medicine; Visit Provider Family Medicine
DX: Z20.822 Contact with and (suspected) exposure to COVID-19 (principal)
CPT/HCPCS: 36415; 85025; C9803; U0003; U0005

== ENCOUNTER → 2022-09-04 10:04 | Outpatient (CLI) | payer MEDICARE, SELFPAY ==
--- NOTE | 2022-09-04 10:06 | CA_ITS ---
APPROVED REPORT EXAM: Comprehensive 2D, Doppler, and color-flow Echocardiogram Certified Nurses Aide: Brittni Escalante CRT Ht: 5 ft 2 in Wt: 94lbs BSA: 1.39 BP: 122/74 mmHg Indications: Atrial Fibrillation, CAD, ABD Celiac stent 06/05/22, VERNA, HOCM, Watchman device, sob, HTN, HLD, murmur 2D Dimensions LVOT 1.88 cm (M/F) 1.5-2.5 LA Volume 35.90 mL LA Volume Index 25.30 mL/m2 (M/F) 16-34 M-Mode Dimensions RVDd 2.58 cm (0.9-2.6) LA Diam 4.01 cm (1.9-4.0) LVDd 3.70 cm (3.5-5.7) Ao Diam 3.49 cm (2.0-3.7) LVDs 2.66 cm (3.5-5.7) IVSd 1.31 cm (0.6-1.1) PWd 1.23 cm (0.6-1.1) EF (Teich) 55.20% FS 28.10% EDV (Teich) 58.10 mL TAPSE 1.15 (<1.7) ESV (Teich) 26.00 mL LV Diastology E Decel Time 150.00 (160-240 msec) E/A Ratio 2.15 MED E' 10.00 (< 7 cm/sec) MED A' 2.10 cm/s E'/MED E' Ratio 9.36 (>14) LAT E' 13.60 (<10 cm/sec) LAT A' 3.30 cm/s E/LAT E' Ratio 6.88 (>14) Aortic Valve LVOT Max 96.00 (70-110 cm/s) LVOT VTI 18.55 cm AoV Peak Gregorio. 127.00 (50-130 cm/s) AI PHT 619.00 ms AO Peak GR. 6.50 mmHg AO Mean GR. 4.00 (<5 mmHg) AO VTI 26.49 (18-25 cm) KARTHIK (VTI) 1.94 (2.5-4.5 cm2) Mitral Valve MV E Max Gregorio. 94.00 (40-130 cm/s) MV A Velocity 44.00 (40-130 cm/s) E/A Ratio 2.15 MV Decel. Time 150.00 (160-240 ms) MV PHT 44.00 ms Pulmonary Valve PV Peak Velocity 243.00 (50-150 cm/s) Tricuspid Valve TR P. Velocity 318.00 cm/s RAP Estimate 10.00 mmHg RVSP 50.50 mmHg Left Ventricle Left atrium is markedly enlarged, left ventricle is normal size, estimated ejection fraction 50% with no regional wall motion abnormality, diastolic parameters are inconclusive. Right Ventricle Right atrium is markedly enlarged, right ventricle is mildly enlarged with normal contractility. Aortic Valve Aortic valve is thickened and calcified without aortic stenosis there is trace aortic insufficiency, Mitral Valve Mitral valve leaflets are minimally thickened, there is mild mitral regurgitation. Tricuspid Valve Tricuspid valve grossly normal, there is moderate tricuspid regurgitation, calculated right ventricular systolic pressure is 50 mmHg. Pulmonic Valve Pulmonic valve is poorly visualized, there is moderate pulmonic insufficiency. Great Vessels Aortic root is normal size. Inferior vena cava is poorly visualized. Pericardium No significant pericardial effusion noted. Conclusion 1. Marked biatrial enlargement, normal left ventricular size, estimated ejection fraction 50% with no regional wall motion abnormality, diastolic parameters are inconclusive. 2. Mildly enlarged right ventricle with normal contractility. 3. Trace aortic, moderate pulmonic, mild mitral and moderate tricuspid regurgitation, calculated right ventricular systolic pressure is 50 mmHg. 4. No significant pericardial effusion noted. 5. Inferior vena cava is poorly visualized. Electronically signed by : Eder Mera MD 09/05/2022 05:57:22
--- NOTE | 2022-09-04 10:06 | CA_ITS ---
FINAL REPORT TECHNIQUE: Color Doppler, duplex Doppler and berg scale sonography of the bilateral neck arterial vasculature was performed. Velocities were measured in the carotid arteries. Stenosis evaluation based on the validated velocity criteria. CLINICAL HISTORY: eula,HX-Bilateral CEA FINDINGS: The peak systolic velocity of the right common carotid artery is 52 cm/s. The peak systolic velocity of the right internal carotid artery is 81 cm/s and end diastolic velocity 17 cm/s. The ICA/CCA ratio is 1.6. A small amount of plaque is present. The right external carotid artery is patent. The right vertebral artery is patent with antegrade flow. The peak systolic velocity of the left common carotid artery is 51 cm/s. The peak systolic velocity of the left internal carotid artery is 81 cm/s and end diastolic velocity 16 cm/s. The ICA/CCA ratio is 1.6. A moderate amount of plaque is present. The left external carotid artery is patent.The left vertebral artery is patent with antegrade flow. IMPRESSION: Less than 50% bilateral carotid stenoses. Bilateral patent vertebral arteries with antegrade flow. If indicated, CTA or MRA could further evaluate. Reviewed, Interpreted and Dictated by Doug Thomas III, MD Transcribed by Akanksha Urias Authenticated and [facility]
== END ==
PROVIDERS: PCP Family Medicine; Visit Provider Nurse Practitioner Family
DX: I35.1 Nonrheumatic aortic (valve) insufficiency (principal); I42.2 Other hypertrophic cardiomyopathy; R06.02 Shortness of breath; I65.23 Occlusion and stenosis of bilateral carotid arteries
CPT/HCPCS: 93306; 93880

== ENCOUNTER 2022-10-07 16:08 | Emergency (ER) | payer MEDICARE, SELFPAY ==
[2022-10-07 16:08] VITALS: BP 178/89; PULSE 82; RESP 18; TEMP 36.9; O2SAT 94; BMI 17.2
--- NOTE | 2022-10-07 16:13 | HMH.EDGENADL ---
Discharge Plan Disposition Patient Disposition: Home, Self-Care Prescriptions Prescriptions: No Action digoxin 125 mcg (0.125 mg) tablet 125 mcg PO DAILY clopidogrel 75 mg tablet 75 mg PO DAILY Label Comments: TAKE 1 TABLET BY MOUTH ONCE DAILY furosemide 20 mg tablet 20 mg PO DAILY metoprolol succinate 50 mg tablet extended release 24 hr 50 mg PO DAILY Qty: 90 1RF pantoprazole 40 mg tablet,delayed release (DR/EC) 40 mg PO DAILYP PRN (Reason: GERD) Qty: 90 3RF alprazolam 0.25 MG tablet 0.25 - 0.5 mg PO Q6HP PRN (Reason: Anxiety) montelukast 10 MG tablet 10 mg PO DAILY gabapentin 100 MG capsule 100 mg PO HS atorvastatin 10 mg tablet 10 mg PO QODHS aspirin 81 MG tablet,delayed release (DR/EC) 81 mg PO DAILY dicyclomine 10 MG capsule 10 mg PO QIDP PRN (Reason: STOMACH CRAMPS) acetaminophen 650 MG tablet extended release 650 mg PO BID buspirone 10 MG tablet 10 mg PO TID albuterol sulfate 8.5 GM HFA aerosol inhaler 2 puffs IH Q4HP PRN (Reason: Shortness Of Breath) diltiazem HCl 180 MG capsule,ext.rel 24h degradable 180 mg PO DAILY Label Comments: TAKE 1 CAPSULE BY MOUTH ONCE DAILY potassium chloride 10 MEQ capsule, extended release 10 meq PO BID Qty: 60 4RF tramadol-acetaminophen 37.5-325 mg tablet 1 tab PO TID PRN (Reason: Chronic Pain) Label Comments: TAKE 1 TABLET BY MOUTH THREE TIMES DAILY NEEDED Activity Restrictions/Add. Instructions Additional Instructions/Restrictions: Please return to the emergency department with any significant bleeding. Otherwise please call Dr. Puente's office tomorrow to have your H&H redrawn. Clinical Impressions Clinical Impression: Acute lower gastrointestinal bleeding, Adverse effect of antiplatelet agent Instructions Patient Instructions: DI for Diarrhea and Traveler's Diarrhea -- Adult, DI for Diarrhea and Traveler's Diarrhea -- Child, DI for Nausea -- Adult, DI for Nausea -- Child Discharge ED Provider: Vijay Steinberg General Adult HPI General Chief complaint: Nausea/Vomiting/Diarrhea Stated complaint: rectal bleeding Time Seen by Provider: 10/07/22 16:13 History of Present Illness HPI narrative: Patient is an 82-year-old vasculopath with a history of carotid artery stenosis mesenteric ischemia with multiple peripheral arterial stents on antiplatelet therapy with aspirin and Plavix who presents today with abdominal pain and hematochezia. Denies any melena. States this is happened 4 times over the last month but each time prior to this she had self resolution. Today she states she has filled her toilet multiple times with bloody bowel movements. She brought in a sample to show me which included a dark maroon stool sample. She denies any fever recent hospitalizations or antibiotic use. She did state that her postprandial abdominal pain which has been chronic was significantly improved with the abdominal stent that was placed in June of last year at [facility]. Patient is not on further anticoagulation. Related Data Home Medications Medication Instructions Recorded Confirmed alprazolam 0.25 mg tablet 0.25 - 0.5 mg PO Q6HP PRN Anxiety 04/21/19 10/07/22 gabapentin 100 mg capsule 100 mg PO HS NEUROPATHY 04/21/19 10/07/22 montelukast 10 mg tablet 10 mg PO DAILY COPD 04/21/19 10/07/22 atorvastatin 10 mg tablet 10 mg PO QODHS Cholesterol 05/05/19 10/07/22 aspirin 81 mg tablet,delayed 81 mg PO DAILY HEART HEALTH 07/26/19 10/07/22 release acetaminophen 650 mg 650 mg PO BID MILD PAIN 11/13/20 10/07/22 tablet,extended release albuterol sulfate 90 mcg/actuation 2 puffs inhalation Q4HP PRN 11/13/20 10/07/22 aerosol inhaler Shortness Of Breath buspirone 10 mg tablet 10 mg PO TID MOOD 11/13/20 10/07/22 dicyclomine 10 mg capsule 10 mg PO QIDP PRN STOMACH CRAMPS 11/13/20 10/07/22 clopidogrel 75 mg tablet 75 mg PO DAILY Blood thinner 03/27/2110/07
--- NOTE | 2022-10-07 16:26 | CT_ITS ---
PROCEDURE INFORMATION: Exam: CTA Abdomen and Pelvis With Contrast Exam date and time: 10/07/2022 5:13 PM Age: 82 years old Clinical indication: Abdominal pain; Acute; Additional info: Abd pain, hematochezia, h/o mesenteric ischemia-- blood in stool TECHNIQUE: Imaging protocol: Computed tomographic angiography of the abdomen and pelvis with contrast. 3D rendering (Not supervised by radiologist): MIP and/or 3D reconstructed images were created by the technologist. Radiation optimization: All CT scans at this facility use at least one of these dose optimization techniques: automated exposure control; mA and/or kV adjustment per patient size (includes targeted exams where dose is matched to clinical indication); or iterative reconstruction. Contrast material: ISOVUE; Contrast volume: 100 ml; Contrast route: INTRAVENOUS (IV); REPORTING DATA: Count of CT and Cardiac NM exams in prior 12 months: This patient has received [address] and 0 known cardiac nuclear medicine studies in the 12 months prior to the current study. COMPARISON: CT ABDOMEN PELVIS W CON 03/08/2022 8:38 PM FINDINGS: Lungs: Patchy mild peripheral atelectasis or fibrosis in the lung bases 4 mm pulmonary nodule in the posterior left lower lobe on series 5, image 6 is unchanged from 07/26/2019 and does not require further assessment. Mild chronic bronchiectasis in the lingula unchanged. Heart: Moderate cardiomegaly.Moderate coronary artery calcification. Mediastinal space: The visualized distal esophagus is largely contracted without gross abnormality. Aorta: Visualized descending thoracic aortic segment demonstrates moderate generalized ectasia and calcific atherosclerosis without dissection or stenosis. The abdominal aorta demonstrates moderate-severe diffuse mixed calcific plaque and mild generalized ectasia with short segment borderline mild aneurysmal dilatation of the mid abdominal aortic segment at 2.5 cm diameter. No dissection or stenosis. Celiac trunk and mesenteric arteries: The celiac artery demonstrates and ostial stent which is patent without gross complication, maintaining flow to its distal branch vessels. 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 The DAIN origin appears chronically occluded with downstream flow/enhancement maintained via arc of Riolan collateralization, unchanged. Renal arteries: Right main renal artery demonstrates severe ostial/post ostial calcific plaque with associated severe stenosis estimated at 80-90%, unchanged. Left main renal artery demonstrates moderate post ostial mixed calcific plaque producing moderate stenosis estimated at 50-60%. Right iliac arteries: Right common iliac artery demonstrates moderate-severe calcific plaque producing mild stenosis of less than 50%. Right external iliac artery demonstrates moderate mixed calcific plaque producing mild stenosis of less than 50%. Right femoral/popliteal arteries: Right common femoral artery demonstrates moderate stenosis estimated at 60-70% distally, with severe stenosis of the profunda femoral artery origin estimated at 70-80% and chronic occlusion of the visualized proximal right SFA, unchanged. Left iliac arteries: Left common iliac artery demonstrates moderate-severe calcific plaque with short segment moderate-severe stenosis of 70% in the midportion. Left external iliac artery demonstrates moderate diffuse mixed calcific plaque with short segment moderate stenosis of 60% in the proximal segment. Left femoral/popliteal arteries: Left common femoral artery demonstrates m
[2022-10-07 16:33] VITALS: BP 149/82; PULSE 86; RESP 20; O2SAT 96
[2022-10-07 16:42] LABS: Basophils # 0.1 K/mm3 (0-0.2); Basophils % 1.8 % (0.1-2.0); Chloride 103 mmol/L (98-107); Eosinophils % 0.4 % (0.1-12.0); Hematocrit 52.2 % (37.0-47.0); Lymphocytes # 1.7 K/mm3 (0.7-4.5); Lymphocytes % 21.1 % (10-50); Mean Corpuscular HGB Conc 32.6 g/dL (31.8-35.4); Mean Corpuscular Volume 98.3 fl (81-99); Mean Platelet Volume 8.7 fl (7.4-10.4); Monocytes # 0.5 K/mm3 (0.1-1.0); Monocytes % 5.8 % (1.7-9.3); Neutrophils # 5.6 K/mm3 (1.8-7.8); Neutrophils % 70.9 % (37.0-80.0); Platelet Count 252 K/mm3 (142-424); Potassium 4.4 mmoL/L (3.5-5.1); Red Blood Count 5.31 M/mm3 (4.20-5.40); Red Cell Distribution Width 13.2 % (11.5-17.5); Sodium 141 mmol/L (136-145); White Blood Count 7.8 K/mm3 (4.8-10.8)
[2022-10-07 16:45] LABS: Alanine Aminotransferase 44 U/L (12-78); Albumin Level 4.6 g/dl (3.5-5.0); Albumin/Globulin Ratio 1.4 (1.1-1.8); Alkaline Phosphatase 169 U/L (38-126); Anion Gap 12.4 mEq/L (5-15); Aspartate Amino Transferase 37 U/L (14-36); Bilirubin,Total 0.6 mg/dl (0.2-1.3); Blood Urea Nitrogen 28 mg/dl (7-17); Calcium 9.3 mg/dl (8.4-10.2); Carbon Dioxide 30 mmol/L (22.0-30.0); Creatinine Clearance Estimated 30 mL/min (50-200); Estimated Glomerular Filt Rate 81 ml/min (>60); GFR (African American) 97 ML/MIN (>60); Globulin 3.2 g/dL (1.3-3.2); Glucose 102 mg/dl (74-100); Total Protein,Serum 7.8 g/dl (6.3-8.2)
[2022-10-07 16:55] LABS: Microscopic, Urine URINE MICROSCOPIC (MICROSCOPIC)
[2022-10-07 16:57] LABS: Appearance,Urine CLEAR (Clear); Bilirubin,Urine Negative (Negative); Blood, Urine Negative (Negative); Color,Urine YELLOW (Yellow); Glucose,Urine (UA) Negative (Negative); Ketones,Urine Negative (Negative); Leukocyte Esterase,Urine Negative (Negative); Nitrate,Urine Negative (Negative); Protein,Urine Negative (Negative); Urobilinogen,Urine 0.2 EU/dl (0.2)
[2022-10-07 17:24] LABS: Lactic Acid 1.5 mmol/L (0.7-2.1)
[2022-10-07 17:30] VITALS: BP 157/80; PULSE 66; RESP 18; O2SAT 95
[2022-10-07 17:30] LABS: Squamous Epithelial Cell,Urine Occasional #/hpf (0-5)
[2022-10-07 18:00] VITALS: BP 135/73; PULSE 67; RESP 20; O2SAT 94
--- NOTE | 2022-10-07 18:30 | PC.NURSE ---
JOHN YOU spoke with dr. cruz
--- NOTE | 2022-10-07 18:31 | PC.NURSE ---
ER at discussing POC with pt
[2022-10-07 18:34] VITALS: BP 142/73; PULSE 71; RESP 17; TEMP 36.9; O2SAT 94
== END 2022-10-07 18:40 | disposition home or self-care (01) ==
PROVIDERS: Emergency Provider Student in an Organized Health Care Education/Training Program; PCP Family Medicine
DX: T45.515A Adverse effect of anticoagulants, initial encounter (principal); K92.2 Gastrointestinal hemorrhage, unspecified; F41.9 Anxiety disorder, unspecified; I48.91 Unspecified atrial fibrillation; I25.10 Atherosclerotic heart disease of native coronary artery without angina pectoris; K21.9 Gastro-esophageal reflux disease without esophagitis; E78.5 Hyperlipidemia, unspecified; I10 Essential (primary) hypertension; I25.2 Old myocardial infarction; F17.210 Nicotine dependence, cigarettes, uncomplicated; X58.XXXA Exposure to other specified factors, initial encounter; Z86.73 Personal history of transient ischemic attack (TIA), and cerebral infarction without residual deficits; Z79.82 Long term (current) use of aspirin; Z86.79 Personal history of other diseases of the circulatory system; Z79.01 Long term (current) use of anticoagulants; Z95.1 Presence of aortocoronary bypass graft
CPT/HCPCS: 36415; 74174; 80053; 81001; 83605; 85025; 86850; 96360; 99285; Q9967

== ENCOUNTER → 2022-10-25 14:42 | Outpatient (CLI) | payer MEDICARE, SELFPAY ==
[2022-11-03 20:12] LABS: Pancreatic Elastase, Fecal 84 (>200)
== END ==
PROVIDERS: PCP Family Medicine; Visit Provider Nurse Practitioner Family
DX: R19.4 Change in bowel habit (principal); R14.0 Abdominal distension (gaseous); K30 Functional dyspepsia; K58.9 Irritable bowel syndrome, unspecified; R68.81 Early satiety; R63.4 Abnormal weight loss; K86.89 Other specified diseases of pancreas; F17.290 Nicotine dependence, other tobacco product, uncomplicated
CPT/HCPCS: 82656

== ENCOUNTER 2023-02-11 07:23 | Day surgery (SDC) | payer MEDICARE, SELFPAY ==
[2023-02-07 13:18] VITALS: BMI 16.6
[2023-02-11 08:13] VITALS: BP 189/102; PULSE 61; RESP 18; TEMP 36.3; O2SAT 98
[2023-02-11 08:47] VITALS: BP 199/98; PULSE 70; RESP 16; O2SAT 98
[2023-02-11 08:52] VITALS: BP 203/85; PULSE 62; RESP 16; O2SAT 100
[2023-02-11 08:57] VITALS: BP 191/88; PULSE 59; RESP 16; O2SAT 100
[2023-02-11 09:02] VITALS: BP 187/77; PULSE 56; RESP 16; O2SAT 100
[2023-02-11 09:25] VITALS: BP 161/78; PULSE 85; RESP 16; TEMP 36.6; O2SAT 100
== END 2023-02-11 09:25 | disposition home or self-care (01) ==
PROVIDERS: PCP Family Medicine; Visit Provider Ophthalmology
DX: H25.812 Combined forms of age-related cataract, left eye (principal)
CPT/HCPCS: 66982; V2632

== ENCOUNTER → 2023-05-26 12:19 | Outpatient (CLI) | payer MEDICARE, SELFPAY ==
--- NOTE | 2023-05-26 12:23 | XR_ITS ---
FINAL REPORT CLINICAL HISTORY: LUMBAGO W/SCIATICA FINDINGS: 5 views of the lumbar spine were obtained. There is no evidence of fracture or dislocation. The vertebral alignment is normal. There are mild to moderate degenerative changes with multilevel osteophytes and facet arthropathy. Vascular calcifications are noted. No paraspinous soft tissue abnormalities identified. There are postoperative changes in the right abdomen. IMPRESSION: No acute bony abnormality. Mild to moderate degenerative changes. Reviewed, Interpreted and Dictated by Doug Thomas III, MD Transcribed by Kylie Wyatt Authenticated and [facility]
== END ==
PROVIDERS: PCP Family Medicine; Visit Provider Family Medicine
DX: M54.42 Lumbago with sciatica, left side (principal)
CPT/HCPCS: 72110

== ENCOUNTER 2023-07-17 07:25 | Inpatient (IN) | payer MEDICARE, SELFPAY ==
[2023-07-17] VITALS (17 sets, daily range): BP systolic 144–179; BP diastolic 70–90; PULSE 61–84; RESP 16–20; TEMP 36.5–36.8; O2SAT 86–99; BMI 20.7; BMI 16.5
--- NOTE | 2023-07-17 07:30 | ECG_ITS ---
APPROVED REPORT Exam: Resting ECG HR:64 bpm ECG Measurements Heart Rate 64 AXES QRSd 97 QRS 76 QT 418 T 223 QTc 428 Conclusion ATRIAL FIBRILLATION SEPTAL MYOCARDIAL INFARCTION , OF INDETERMINATE AGE [40+ ms Q WAVE IN V1/V2] ST DEPRESSION, CONSIDER SUBENDOCARDIAL INJURY [0.1+ mV ST DEPRESSION] ABNORMAL ECG UNCONFIRMED REPORT Electronically signed by : Janes Naranjo MD 07/18/2023 14:48:45
--- NOTE | 2023-07-17 07:43 | CT_ITS ---
FINAL REPORT TECHNIQUE: Multiple axial CT sections were performed through the face without IV contrast. Coronal reconstruction images were performed. This study was performed with techniques to keep radiation doses as low as reasonably achievable (ALARA). Individualized dose reduction techniques using automated exposure control or adjustment of mA and/or kV according to the patient's size were employed. CLINICAL HISTORY: unwitnessed fall, head trauma COMPARISON: none FINDINGS: The paranasal sinuses are well aerated. There is prominent left periorbital soft tissue swelling. There is no fracture. There are no air-fluid levels. IMPRESSION: Soft tissue swelling without acute bony. Reviewed, Interpreted and Dictated by Ricardo Gonzalez MD Transcribed by Balbina Priest Authenticated and . [facility]
--- NOTE | 2023-07-17 07:43 | CT_ITS ---
FINAL REPORT TECHNIQUE: The patient was injected with IV contrast. Axial images were obtained through the chest in a PE protocol. 3-D reconstruction images were also performed. Individualized dose reduction techniques using automated exposure control or adjustment of the MA and/or KV according to patient's size were employed. CLINICAL HISTORY: unwitnessed fall, head trauma, hypoxia COMPARISON: None FINDINGS: There is suboptimal opacification of the thoracic vessels. There is a stent in the proximal right brachiocephalic. No definite evidence of PE. There is no aortic dissection. There is no axillary adenopathy. There is no hilar or mediastinal adenopathy. The heart size is normal. There are dense vascular calcifications of the aortic arch. There is no pericardial effusion. There are moderate bilateral pleural effusions. Bibasilar atelectasis is noted. There is mild groundglass opacity in both lungs favored to be related to pneumonitis or mild edema. There is consolidation in the medial right middle lobe. Limited images of the upper abdomen demonstrate no acute findings. IMPRESSION: Suboptimal exam for detection of pulmonary embolism but no definite pulmonary embolism identified. No evidence of dissection. Moderate bilateral pleural effusions. Reviewed, Interpreted and Dictated by Ricardo Gonzalez MD Transcribed by Balbina Priest Authenticated and . [facility]
--- NOTE | 2023-07-17 07:43 | CT_ITS ---
FINAL REPORT TECHNIQUE: Axial images were obtained of the cervical spine by computed tomography. Coronal and sagittal reconstruction process performed. This study was performed with techniques to keep radiation doses as low as reasonably achievable (ALARA). Individualized dose reduction techniques using automated exposure control or adjustment of mA and/or kV according to the patient's size were employed. CLINICAL HISTORY: unwitnessed fall, head trauma COMPARISON: None FINDINGS: Cervical vertebrae show normal height. Disc spaces are well-preserved. There is no malalignment. The facets are properly aligned. There is moderate facet osteoarthropathy noted bilaterally in the cervical spine. C2-3: Midline disc protrusion producing mild canal stenosis. C3-4: Midline disc protrusion producing mild canal stenosis. C4-5: No evidence of canal stenosis or neuroforaminal narrowing. C5-6: Endplate degenerative change with moderate bilateral neural foraminal narrowing. C6-7: Endplate degenerative change with moderate right neural foraminal narrowing. C7-T1: No evidence of canal stenosis or neuroforaminal narrowing. IMPRESSION: No acute bony abnormality identified. Moderate multilevel facet osteoarthropathy and mild canal stenosis at the C2-3 and C3-4 levels. Reviewed, Interpreted and Dictated by Ricardo Gonzalez MD Transcribed by Makayla Morales Authenticated and . [facility]
--- NOTE | 2023-07-17 07:43 | CT_ITS ---
FINAL REPORT TECHNIQUE: Axial CT images were performed through the head. Coronal reformatted images were submitted. This study was performed with techniques to keep radiation doses as low as reasonably achievable (ALARA). Individualized dose reduction techniques using automated exposure control or adjustment of mA and/or kV according to the patient's size were employed. CLINICAL HISTORY: unwitnessed fall, head trauma COMPARISON: 11/13/2020 FINDINGS: There is prominent left periorbital soft tissue swelling. No definite underlying fracture seen. There is abnormal patchy decreased attenuation in the deep white matter. The ventricles are normal in size. There is no evidence of hemorrhage, mass effect, or edema. There is no abnormal extra-axial fluid seen. The sinuses are well aerated. IMPRESSION: Left periorbital soft tissue swelling without definite underlying fracture. Changes of chronic microvascular ischemia. Reviewed, Interpreted and Dictated by Ricardo Gonzalez MD Transcribed by Balbina Priest Authenticated and [facility][1]
--- NOTE | 2023-07-17 07:45 | CT_ITS ---
FINAL REPORT TECHNIQUE: thin section axial CT with and without IV contrast supplemented with multiplanar 3-D reconstruction of the head. This study was performed with techniques to keep radiation doses as low as reasonably achievable, (ALARA)individualized dose reduction techniques using automated exposure control or adjustment of mA and/or kV according to the patient's size were employed. CLINICAL HISTORY: unwitnessed fall, head trauma COMPARISON: None FINDINGS: HEAD CT: The ventricles are normal in size. There is no evidence of hemorrhage. No masses are identified. No extra-axial fluid is seen. The sinuses are normal. CTA: The cranial circulation is unremarkable. There is no significant stenosis, aneurysm or occlusion. IMPRESSION: No acute process. Reviewed, Interpreted and Dictated by Ricardo Gonzalez MD Transcribed by Balbina Priest Authenticated and . [facility]
--- NOTE | 2023-07-17 07:45 | CT_ITS ---
FINAL REPORT TECHNIQUE: NASCET technique utilized for stenosis evaluation. Thin section axial images were obtained through the neck after contrast administration per CT angiogram protocol. Multiplanar reconstruction images were obtained from the axial data. Exam was performed using dose reduction technique. CLINICAL HISTORY: unwitnessed fall, head trauma FINDINGS: Moderate bilateral pleural effusions are noted. RIGHT CAROTID: No significant stenosis is seen of the cervical common or internal carotid artery. There are mild vascular calcifications of the proximal right internal carotid artery. LEFT CAROTID: No significant stenosis seen of the cervical common or internal carotid artery. VERTEBRALS: The vertebrals are patent. No significant stenosis is present. Left vertebral artery is dominant. IMPRESSION: No significant arterial abnormality. Reviewed, Interpreted and Dictated by Ricardo Gonzalez MD Transcribed by Balbina Priest Authenticated and [facility]
--- NOTE | 2023-07-17 07:54 | HMH.EDGENADL ---
Discharge Plan Disposition Patient Disposition: Admitted Condition: Good Prescriptions Prescriptions: No Action digoxin 125 mcg (0.125 mg) tablet 125 mcg PO DAILY potassium chloride 10 mEq capsule, extended release 10 meq PO DAILY furosemide 20 mg tablet 20 mg PO DAILY clopidogrel 75 mg tablet 75 mg PO DAILY Qty: 90 3RF metoprolol succinate 50 mg tablet extended release 24 hr See Rx Instructions .ROUTE .COMPLEX Qty: 90 4RF Dose Instruction: TAKE 1 TABLET BY MOUTH ONCE DAILY FOR HIGH BLOOD PRESSURE Rx Instructions: TAKE 1 TABLET BY MOUTH ONCE DAILY FOR HIGH BLOOD PRESSURE pantoprazole 40 mg tablet,delayed release (DR/EC) 40 mg PO DAILYP PRN (Reason: GERD) Qty: 90 3RF alprazolam 0.25 MG tablet 0.25 - 0.5 mg PO Q6HP PRN (Reason: Anxiety) montelukast 10 MG tablet 10 mg PO DAILY gabapentin 100 MG capsule 100 mg PO HS atorvastatin 10 mg tablet 10 mg PO QODHS aspirin 81 MG tablet,delayed release (DR/EC) 81 mg PO DAILY dicyclomine 10 MG capsule 10 mg PO QIDP PRN (Reason: STOMACH CRAMPS) acetaminophen 650 MG tablet extended release 650 mg PO BID buspirone 10 MG tablet 10 mg PO TID diltiazem HCl 180 MG capsule,ext.rel 24h degradable 180 mg PO DAILY Patient Comments: TAKE 1 CAPSULE BY MOUTH ONCE DAILY Referrals Follow up/Referrals: Provider,Referral, [Referring] - See instructions Clinical Impressions Clinical Impression: Acute hypoxemic respiratory failure, Bilateral pleural effusion, Pulmonary edema, Periorbital ecchymosis of left eye Discharge ED Provider: Fernanda Hernandez General Adult HPI General Chief complaint: Fall Stated complaint: AO fell Time Seen by Provider: 07/17/23 07:30 Mode of Arrival: Wheelchair Source of Information: Patient Limitations: No Limitations Description of Symptoms (Recalled from ER Triage Doc. by RN): pt to ed c/o fall. pt states she doesn't remember falling and remember waking up on the floor. pt c/o headache, left eye pain and nausea. brising noted to the left eye. History of Present Illness HPI narrative: This patient is an 83-year-old female with a history of atrial fibrillation, TIA, aortic insufficiency, CAD, hypertrophic cardiomyopathy, pulmonary hypertension, hypertension, and hyperlipidemia on aspirin and Plavix presenting to the emergency department for evaluation with concern for an unwitnessed fall. Patient reports that she fell asleep on the couch last night, and she thought she heard the phone ringing earlier this morning, so she got up to get the phone. She got tangled up in the blankets and had a fall. She states that she remembers getting up in the next and that she knew she was waking up on the floor. She called her daughter immediately after waking up, and her daughter brought her in for evaluation. She currently complains of headache, left eye pain, and nausea. She denies any other injuries or complaints, and she states that she was not having any issues last night for going to bed. Related Data Home Medications Medication Instructions Recorded Confirmed alprazolam 0.25 mg tablet 0.25 - 0.5 mg PO Q6HP PRN Anxiety 04/21/19 02/26/23 gabapentin 100 mg capsule 100 mg PO HS NEUROPATHY 04/21/19 02/26/23 montelukast 10 mg tablet 10 mg PO DAILY COPD 04/21/19 02/26/23 atorvastatin 10 mg tablet 10 mg PO QODHS Cholesterol 05/05/19 02/26/23 aspirin 81 mg tablet,delayed 81 mg PO DAILY HEART HEALTH 07/26/19 02/26/23 release acetaminophen 650 mg 650 mg PO BID MILD PAIN 11/13/20 02/26/23 tablet,extended release buspirone 10 mg tablet 10 mg PO TID MOOD 11/13/20 02/26/23 dicyclomine 10 mg capsule 10 mg PO QIDP PRN STOMACH CRAMPS 11/13/20 02/26/23 furosemide 20 mg tablet 20 mg PO DAILY Fluid 09/11/21 02/26/23 digoxin 125 mcg (0.125 mg) tablet 125 mcg PO DAILY Heart rhythm 12/26/21 02/26/23 diltiazem HCl 180 mg 180 mg PO DAILY AFIB 03/09/22 02/26/23 capsule,extended release 24 hr, controlled potassium chloride 10 mEq 10 meq PO DAILY Supplement 02/26/23 capsule,extended release Previous Rx's Medication Instructions Recorded clopidogrel 75 mg tablet 75 mg PO DAILY Blood thinner #90 10/24/22 tabs metoprolol succinate 50 mg See Rx Instructions .Route 06/24/23 tablet,extended release 24 hr .COMPLEX #90 tabs pantoprazole 40 mg tablet,delayed 40 mg PO DAILYP PRN GERD #90 tabs 06/24/23 release Allergies Allergy/AdvReac Type Severity Reaction Status Date / Time beef derived (bovine) Allergy Unknown Verified 02/26/23 10:48 allergy reaction lactose Allergy Unknown Verified 02/26/23 10:48 allergy reaction Penicillins Allergy Unknown Verified 02/26/23 10:48 allergy reaction Sulfa (Sulfonamide Allergy Verified 02/26/23 10:48 Antibiotics) [facility] Disclaimer: The information contained in this section may have been updated after the patient was seen, as this information can be updated by other users. 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 NSTEMI (non-ST elevated myocardial infarction) Paroxysmal atrial fibrillation Presence of Watchman left atrial appendage closure device Pulmonary HTN Rapid atrial fibrillation Subclavian artery stenosis, right TIA (transient ischemic attack) Tobacco abuse Surgical History History of appendectomy History of cholecystectomy History of hysterectomy History of right heart catheterization (RHC) Status post carotid endarterectomy Family History Other Family history of diabetes mellitus type II Family history of myocardial infarction Social History Smoking Status: Never smoker alcohol intake: never substance use type: denies use current occupational status: retired Travel in the last 8 weeks: None household members: none housing: house lives independently: Yes marital status: single education level: middle school service: No caffeine: No special fanny needs: No agree to transfusion: No do you feel safe at home: Yes victim of physical abuse: No victim of emotional abuse: No victim of sexual abuse: No would you like helpful sources: No ROS Obtained: Yes All systems reviewed & no additional complaints except as documented Physical Exam General General appearance: alert and in no apparent distress Head Head exam: other (Left periorbital ecchymosis with hematoma to the superior eyelid. Small laceration to the lateral left eyebrow) Eye Eye exam: Present PERRL, EOMI, conjunctival injection (Left eye), periorbital swelling (Left eye) and periorbital tenderness (Left eye) ENT ENT exam: Present normal exam, normal oropharynx, mucous membranes moist and normal external ear exam Neck Neck exam: Present normal inspection, full ROM and trachea midline; Absent tenderness Chest Chest inspection: Present normal inspection, symmetric chest wall rise and other; Absent tenderness Respiratory Respiratory exam: Present normal lung sounds bilaterally and other (Oxygen saturation of 91% on room air); Absent respiratory distress, wheezes, stridor or accessory muscle use Cardiovascular Cardiovascular exam: Present regular rate and irregular rhythm Abdominal Exam Abdominal exam: Present soft; Absent distention, tenderness or guarding Extremities Exam Extremities exam: Present normal inspection, full ROM, normal capillary refill and other (Skin tear to the left wrist. Wound is hemostatic); Absent tenderness or edema Back Exam Back exam: Present normal inspection and full ROM; Absent tenderness Neurological Exam Neurological exam: Present alert, oriented X3, CN II-XII intact and normal gait; Absent motor sensory deficit Psychiatric Psychiatric exam: Present normal affect and normal mood Skin Skin exam: Present warm and dry Medical Decision Making Medical Records Medical records reviewed: Yes I reviewed the patient's medical records. Jorge Inquiry Pt receiving controlled substance: No Vital Signs: 07/17/23 07:34 07/17/23 07:32 07/17/23 08:30 Temperature 98.2 F Temperature Source Oral Pulse Rate 74 64 Pulse Rate [Left Radial] 65 Respiratory Rate 20 Blood Pressure 174/86 H 170/86 H Blood Pressure [Right Arm] 174/86 H Blood Pressure Mean Blood Pressure Mean [Right Arm] 115 02 Sat by Pulse Oximetry 97 93 L 93 L Oxygen Delivery Method Room Air 07/17/23 09:00 07/17/23 10:00 07/17/23 10:30 Temperature Temperature Source Pulse Rate 64 68 61 Pulse Rate [Left Radial] Respiratory Rate Blood Pressure 144/71 H 151/72 H 157/70 H Blood Pressure [Right Arm] Blood Pressure Mean Blood Pressure Mean [Right Arm] 02 Sat by Pulse Oximetry 94 L 92 L 92 L Oxygen Delivery Method 07/17/23 11:00 07/17/23 11:30 07/17/23 12:01 Temperature Temperature Source Pulse Rate 76 77 68 Pulse Rate [Left Radial] Respiratory Rate Blood Pressure 179/80 H 175/74 H 168/75 H Blood Pressure [Right Arm] Blood Pressure Mean 89 Blood Pressure Mean [Right Arm] 02 Sat by Pulse Oximetry 92 L 93 L 95 Oxygen Delivery Method Nasal Cannula 07/17/23 12:30 07/17/23 13:00 Temperature Temperature Source Pulse Rate 80 84 Pulse Rate [Left Radial] Respiratory Rate Blood Pressure 161/85 H 160/78 H Blood Pressure [Right Arm] Blood Pressure Mean 87 Blood Pressure Mean [Right Arm] 02 Sat by Pulse Oximetry 98 86 L Oxygen Delivery Method Lab Data Lab results reviewed: Yes I reviewed the patient's lab results. Lab Results 07/17/23 07:51: VBG pH 7.35, VBG pCO2 57.0 H, VBG pO2 94.2 H, VBG HCO3 30.9 H, VBG Total CO2 32.7 H, VBG O2 Saturation 97.0 H, VBG Base Excess 5.3 H 07/17/23 08:00: WBC 7.3, RBC 4.95, Hgb 11.3 L, Hct 37.9, MCV 76.6 L, MCH 22.8 L, MCHC 29.7 L, RDW 17.8 H, Plt Count 242, MPV 8.3, Neut % (Auto) 75.2, Lymph % (Auto) 16.2, Chase % (Auto) 7.5, Eos % (Auto) 0.6, Baso % (Auto) 0.5, Neut # (Auto) 5.5, Lymph # (Auto) 1.2, Chase # (Auto) 0.5, Eos # (Auto) 0.1, Baso # (Auto) 0.0, PT 12.4, INR 1.16 H, APTT 27.1, Sodium 143, Potassium 3.7, Chloride 106, Carbon Dioxide 35 H, Anion Gap 5.7, BUN 23 H, Creatinine 0.70, Estimated Creat Clear 35, Estimated GFR 80, Est GFR ( Amer) 97, Glucose 110 H, Calcium 8.4, Total Bilirubin 0.5, AST 27, ALT 34, Alkaline Phosphatase 209 H, Troponin I 0.02, NT-Pro-B Natriuret Pep 2250 H, Total Protein 6.4, Albumin 3.7, Globulin 2.7, Albumin/Globulin Ratio 1.4, Urine Color Yellow, Urine Appearance Clear, Urine pH 6.0, Ur Specific [place] 1.025, Urine Protein 1+, Urine Glucose (UA) Negative, Urine Ketones Negative, Urine Blood Negative, Urine Nitrate Positive, Urine Bilirubin Negative, Urine Urobilinogen 0.2, Ur Leukocyte Esterase Negative, Urine RBC None, Urine WBC 3-5, Ur Squamous Epith Cells 3-5, Urine Bacteria 2+ 07/17/23 10:54: Troponin I 0.01 07/17/23 08:00 07/17/23 08:00 Orders (Tests/Meds): ED MEDICATIONS Generic Name Dose Route Start Last Admin Trade Name Freq PRN Reason Stop Dose Admin Sodium Chloride 10 ml 07/17/23 09:41 07/17/23 09:43 Sodium Chloride 0.9% 10ml Syr (Rad Only) IV 08/16/23 09:40 10 ml NEEDED PRN Administration Maintain IV Site Discontinued Medications Generic Name Dose Route Start Last Admin Trade Name Freq PRN Reason Stop Dose Admin Acetaminophen 1,000 mg 07/17/23 07:52 07/17/23 08:35 Acetaminophen 500mg Tab PO 07/17/23 07:53 Not Given ONCE ONE Acetaminophen 1,000 mg 07/17/23 08:36 07/17/23 08:40 Acetaminophen 1,000mg/100ml Vial IV 07/17/23 08:37 1,000 mg ONCE ONE Administration Dicyclomine HCl 10 mg 07/17/23 13:30 07/17/23 13:48 Dicyclomine 10mg Capsule PO 07/17/23 13:31 10 mg ONCE ONE Administration Furosemide 40 mg 07/17/23 11:16 07/17/23 11:25 Furosemide 40mg/4ml Vial IV 07/17/23 11:17 40 mg ONCE ONE Administration Iopamidol 100 ml 07/17/23 09:41 07/17/23 09:42 Iopamidol-370 (76%);100ml Bottle IV 07/17/23 09:42 100 ml ONCE ONE Administration Ondansetron HCl 4 mg 07/17/23 07:56 07/17/23 08:40 Ondansetron 4mg/2ml Vial IV 07/17/23 07:57 4 mg ONCE ONE Administration Sodium Chloride 50 ml 07/17/23 09:41 07/17/23 09:42 0.9 % Sodium Chloride 50 Ml Vial IV 07/17/23 09:42 50 ml ONCE ONE Administration ORDERS Category Date Time Status CT angio head Stat Cat Scan 07/17/23 07:[address] angio neck Stat Cat Scan 07/17/23 07:[address] cervical spine wo con Stat Cat Scan 07/17/23 07:[address] chest wo con Stat Cat Scan 07/17/23 07:[address] facial bones wo con Stat Cat Scan 07/17/23 07:[address] head/brain wo con Stat Cat Scan 07/17/23 07:43 Completed Activated Partial Thrombo Time Stat Lab 07/17/23 08:00 Completed BNP [Brain Natriuretic Peptide] Stat Lab 07/17/23 08:00 Completed Complete Blood Count Auto Diff Stat Lab 07/17/23 08:00 Completed Comprehensive Metabolic Panel Stat Lab 07/17/23 08:00 Completed Prothrombin Time INR Stat Lab 07/17/23 08:00 Completed Troponin I Q3H Lab 07/17/23 10:54 Completed Troponin I Q3H Lab 07/17/23 13:45 Ordered Troponin I Stat Lab 07/17/23 08:00 Completed Urinalysis and Microscopic Stat Lab 07/17/23 08:00 Completed Urine Culture Stat Micro 07/17/23 09:03 Ordered Venous Blood Gas Stat RT 07/17/23 07:51 Completed ECG initial Besson Routine Y 07/17/23 07:30 Completed ECG Data Tracing #1: I reviewed this ECG and interpreted as documented below: Atrial fibrillation with a ventricular rate of [address] changes concerning for ischemia. Motion artifact noted. ECG initial impression date: 07/17/23 ECG initial impression time: 07:35 Medical Decision Narrative: In summary, this patient is a 83-year-old female presenting to the Emergency Department for evaluation of headache, left eye pain, and left eye periorbital ecchymosis after a ground-level fall. Patient also noted to be borderline hypoxic with oxygen saturation of 91% on room air. She does have a history of pulmonary hypertension. Differential diagnoses considered include but are not limited to intracranial hemorrhage, skull fracture, globe injury, polytrauma. Ruling out the most morbid conditions drove assessment. It should be noted patient's history includes atrial fibrillation, pulmonary hypertension, hypertension, hyperlipidemia, aortic insufficiency, atrial fibrillation, CAD, hypertrophic cardiomyopathy, carotid artery stenosis, which may or may not be at goal therapy. This complicates all aspects of care by increasing patient's risk for morbidity. I reviewed patient's past medical records and noted previous ED evaluation for GI bleed, as well as most recent cardiology evaluation noting stable CAD, mild aortic insufficiency, and chronic atrial fibrillation that is rate controlled. No anticoagulation, as patient is status post watchman's procedure and has history of GI bleed. On exam, the patient is alert and oriented with no focal neurologic deficits. She does have obvious head trauma with significant left periorbital ecchymosis and hematoma. Mild conjunctival injection of the left eye without obvious concerns for globe injury. Workup included CBC, CMP, coags, troponin, BNP, EKG, CT head, CTA of the head and neck, CT C-spine, and CTA of the chest given hypoxia. She was given oral Tylenol and IV Zofran for symptomatic improvement. I independently interpreted CT scans prior to the radiologist read and noted bilateral pleural effusions as well as pulmonary edema on her chest CT, however no other acute findings such as intracranial hemorrhage, fracture, or other concern. Please see their read for final interpretation. Labs were obtained that demonstrated elevated BNP without other acute concern at this time. Patient continues to be hypoxic on room air with oxygen saturations in the mid 80s. She was placed on 2 L nasal cannula with improvement to 91 to 92%. She desats even lower with ambulation. Given this, I called and had an interactive discussion with her primary care provider, Dr. Puente, who advised that he would admit the patient for further evaluation and management. She was given 40 mg of IV Lasix prior to admission with good urine output but no improvement in her oxygenation.. At this time, patient was admitted in stable condition. Critical Care Critical Care Time Critical Care Time: No
[2023-07-17 08:08] LABS: Microscopic, Urine URINE MICROSCOPIC (MICROSCOPIC)
[2023-07-17 08:09] LABS: Basophils % 0.5 % (0.1-2.0); Eosinophils # 0.1 K/mm3 (0.0-0.4); Eosinophils % 0.6 % (0.1-12.0); Hematocrit 37.9 % (37.0-47.0); Hemoglobin 11.3 g/dL (12.2-16.2); Lymphocytes # 1.2 K/mm3 (0.7-4.5); Lymphocytes % 16.2 % (10-50); Mean Corpuscular HGB Conc 29.7 g/dL (31.8-35.4); Mean Corpuscular Hemoglobin 22.8 pg (27.0-31.2); Mean Corpuscular Volume 76.6 fl (81-99); Mean Platelet Volume 8.3 fl (7.4-10.4); Monocytes # 0.5 K/mm3 (0.1-1.0); Monocytes % 7.5 % (1.7-9.3); Neutrophils # 5.5 K/mm3 (1.8-7.8); Neutrophils % 75.2 % (37.0-80.0); Platelet Count 242 K/mm3 (142-424); Red Blood Count 4.95 M/mm3 (4.20-5.40); Red Cell Distribution Width 17.8 % (11.5-17.5); White Blood Count 7.3 K/mm3 (4.8-10.8)
[2023-07-17 08:14] LABS: Chloride 106 mmol/L (98-107)
[2023-07-17 08:15] LABS: Potassium 3.7 mmoL/L (3.5-5.1); Sodium 143 mmol/L (136-145)
[2023-07-17 08:17] LABS: Alanine Aminotransferase 34 U/L (12-78); Aspartate Amino Transferase 27 U/L (14-36); Blood Urea Nitrogen 23 mg/dl (7-17); Creatinine Clearance Estimated 35 mL/min (50-200); Estimated Glomerular Filt Rate 80 ml/min (>60); GFR (African American) 97 ML/MIN (>60)
[2023-07-17 08:18] LABS: Albumin Level 3.7 g/dl (3.5-5.0); Albumin/Globulin Ratio 1.4 (1.1-1.8); Alkaline Phosphatase 209 U/L (38-126); Anion Gap 5.7 mEq/L (5-15); Bilirubin,Total 0.5 mg/dl (0.2-1.3); Calcium 8.4 mg/dl (8.4-10.2); Carbon Dioxide 35 mmol/L (22.0-30.0); Globulin 2.7 g/dL (1.3-3.2); Glucose 110 mg/dl (74-100); Total Protein,Serum 6.4 g/dl (6.3-8.2)
[2023-07-17 08:18] LABS: VBG Base Excess 5.3 mmol/L (-2.4-2.3); VBG HCO3 30.9 mmol/L (23-30); VBG PH 7.35 mmol/L (7.31-7.41); VBG PO2 94.2 mmol/L (28-40); VBG Total CO2 32.7 mmol/L (23-27)
[2023-07-17 08:24] LABS: Appearance,Urine CLEAR (Clear); Bilirubin,Urine Negative (Negative); Blood, Urine Negative (Negative); Color,Urine YELLOW (Yellow); Glucose,Urine (UA) Negative (Negative); Ketones,Urine Negative (Negative); Leukocyte Esterase,Urine Negative (Negative); Nitrate,Urine POSITIVE (Negative); Protein,Urine 1+ (Negative); Specific Gravity, Urine 1.025 (1.005-1.030); Urobilinogen,Urine 0.2 EU/dl (0.2)
[2023-07-17 08:27] LABS: NT Pro Brain Natriuretic Pep. 2250 pg/mL (0-450)
[2023-07-17 08:30] LABS: Activated Partial Thrombo Time 27.1 seconds (22.8-30.6); INR 1.16 (0.9-1.1); Prothrombin Time 12.4 seconds (10.1-12.5); Troponin I 0.02 ng/ml (0.00-0.034)
[2023-07-17] MEDS: ONDANSETRON 4MG/2ML VIAL 4 MG IV (08:40)
[2023-07-17] MEDS: ACETAMINOPHEN 1,000MG/100ML VIAL 1000 MG IV (08:40)
--- NOTE | 2023-07-17 09:15 | PC.NURSE ---
pt gone to ct
[2023-07-17 09:16] LABS: Bacteria,Urine 2+ /lpf
[2023-07-17] MEDS: IOPAMIDOL-370 (76%);100ML BOTTLE 100 ML IV (09:42)
[2023-07-17] MEDS: 0.9 % SODIUM CHLORIDE 50 ML VIAL IV (09:42)
[2023-07-17] MEDS: SODIUM CHLORIDE 0.9% 10ML SYR (RAD ONLY) 10 ML IV (09:43)
[2023-07-17] MEDS: FUROSEMIDE 40MG/4ML VIAL 40 MG IV (11:25)
[2023-07-17 11:36] LABS: Troponin I 0.01 ng/ml (0.00-0.034)
--- NOTE | 2023-07-17 11:36 | PC.NURSE ---
o2 sat 88% on 2 LPM O2 increased to 4 LPM
--- NOTE | 2023-07-17 12:00 | PC.NURSE ---
pt walked to restroom and back to room with assist x1
--- NOTE | 2023-07-17 12:15 | PC.NURSE ---
pt ambulated back to bathroom and back to room with assist x1
--- NOTE | 2023-07-17 13:31 | PC.NURSE ---
helped pt ambulate to restroom assit x1
--- NOTE | 2023-07-17 13:43 | PC.NURSE ---
called care management for bed assignment
[2023-07-17] MEDS: DICYCLOMINE 10MG CAPSULE 10 MG PO ×2 (13:48→20:52)
--- NOTE | 2023-07-17 14:49 | HMH.PHAINT1 ---
Pharmacy Intervention Comments: MEDICATION RECONCILIATION COMPLETED ON PATIENT USING EXTERNAL FILL HISTORY FROM PHARMACY, LIST FROM CARDIOLOGY OFFICE, AND ANA LAURA REPORT. -DAVID SHEPARDD
[2023-07-17 15:01] LABS: Troponin I 0.01 ng/ml (0.00-0.034)
--- NOTE | 2023-07-17 16:25 | P.HP_ITS ---
History of Present Illness *Admission Date: 07/17/23 *Reason for visit:: fall at home *History of present illness: This patient is an 83-year-old female with a history of atrial fibrillation, TIA, aortic insufficiency, CAD, hypertrophic cardiomyopathy, pulmonary hypertension, hypertension, and hyperlipidemia on aspirin and Plavix presenting to the emergency department for evaluation with concern for an unwitnessed fall. Patient reports that she fell asleep on the couch last night, and she thought she heard the phone ringing earlier this morning, so she got up to get the phone. She got tangled up in the blankets and had a fall. She states that she remembers getting up in the next and that she knew she was waking up on the floor. She called her daughter immediately after waking up, and her daughter brought her in for evaluation. She currently complains of headache, left eye pain, and nausea. She denies any other injuries or complaints, and she states that she was not having any issues last night for going to bed. In summary, this patient is a 83-year-old female presenting to the Emergency Department for evaluation of headache, left eye pain, and left eye periorbital ecchymosis after a ground-level fall. Patient also noted to be borderline hypoxic with oxygen saturation of 91% on room air. She does have a history of pulmonary hypertension. Differential diagnoses considered include but are not limited to intracranial hemorrhage, skull fracture, globe injury, polytrauma. Ruling out the most morbid conditions drove assessment. It should be noted patient's history includes atrial fibrillation, pulmonary hypertension, hypertension, hyperlipidemia, aortic insufficiency, atrial fibrillation, CAD, hypertrophic cardiomyopathy, carotid artery stenosis, which may or may not be at goal therapy. This complicates all aspects of care by increasing patient's risk for morbidity. I reviewed patient's past medical records and noted previous ED evaluation for GI bleed, as well as most recent cardiology evaluation noting stable CAD, mild aortic insufficiency, and chronic atrial fibrillation that is rate controlled. No anticoagulation, as patient is status post watchman's procedure and has history of GI bleed. On exam, the patient is alert and oriented with no focal neurologic deficits. She does have obvious head trauma with significant left periorbital ecchymosis and hematoma. Mild conjunctival injection of the left eye without obvious concerns for globe injury. Workup included CBC, CMP, coags, troponin, BNP, EKG, CT head, CTA of the head and neck, CT C-spine, and CTA of the chest given hypoxia. She was given oral Tylenol and IV Zofran for symptomatic improvement. I independently interpreted CT scans prior to the radiologist read and noted bilateral pleural effusions as well as pulmonary edema on her chest CT, however no other acute findings such as intracranial hemorrhage, fracture, or other concern. Please see their read for final interpretation. Labs were obtained that demonstrated elevated BNP without other acute concern at this time. Patient continues to be hypoxic on room air with oxygen saturations in the mid 80s. She was placed on 2 L nasal cannula with improvement to 91 to 92%. She desats even lower with ambulation. Given this, I called and had an interactive discussion with her primary care provider, Dr. Puente, who advised that he would admit the patient for further evaluation and management. She was given 40 mg of IV Lasix prior to admission with good urine output but no improvement in her oxygenation.. At this time, patient was admitted in stable condition. (above as per ER physician) The patient states she does not know how long she was on the floor. She thinks she must have passed out. She may have hit the small table with her eye. She states she has had increased edema in her legs for the past few months. 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 She also has felt poorly this past week with a cough and congestion. She has also been weak. [facility] Disclaimer: The information contained in this section may have been updated after the patient was seen, as this information can be updated by other users. Medical History (Updated 07/17/23 @ 16:51 by CATHLEEN Crabtree) Angina, class II Anxiety Anxiety disorder Aortic insufficiency Apical variant hypertrophic cardiomyopathy Arteriosclerotic cardiovascular disease Atrial fibrillation with RVR Bilateral carotid artery stenosis CAD (coronary artery disease) Carotid artery stenosis Diastolic dysfunction Elevated troponin Gastroesophageal reflux disease HOCM (hypertrophic obstructive cardiomyopathy) Hyperlipidemia Hypertension Ischemic bowel disease group home current use of anticoagulant NSTEMI (non-ST elevated myocardial infarction) Paroxysmal atrial fibrillation Presence of Watchman left atrial appendage closure device Pulmonary HTN Rapid atrial fibrillation Subclavian artery stenosis, right TIA (transient ischemic attack) Tobacco abuse Surgical History (Updated 07/17/23 @ 16:41 by CATHLEEN Crabtree) History of appendectomy History of cholecystectomy History of colonoscopy History of hysterectomy History of right heart catheterization (RHC) Status post carotid endarterectomy Family History Diabetes Coronary artery disease Family history of diabetes mellitus type II Family history of myocardial infarction Cancer Hypertension Stroke Social History Smoking Status: Current every day smoker tobacco type: cigarettes packs per day: 1 alcohol intake: never substance use type: denies use current occupational status: retired Travel in the last 8 weeks: None household members: none housing: house lives independently: Yes marital status: single education level: middle school service: No caffeine: No special fanny needs: No agree to transfusion: No do you feel safe at home: Yes victim of physical abuse: No victim of emotional abuse: No victim of sexual abuse: No would you like helpful sources: No Review of Systems Constitutional Constitutional: Reports body ache(s), Reports chills, Reports fatigue, Denies fever(s), Reports headache(s), Reports malaise and Reports weakness Eyes Eyes: Reports blurry vision (left eye) and Reports eye pain (left eye) ENT Ears, Nose, Mouth, and Throat: Reports headache(s), Reports nasal congestion, Reports sore throat and Denies vertigo *Cardiovascular Cardiovascular: Denies chest pain, Reports dyspnea, Reports irregular heart rhythm and Reports leg edema *Respiratory Respiratory: Reports cough, Reports dyspnea and Reports wheezing *Gastrointestinal Gastrointestinal: Reports abdominal pain (diffuse), Denies loose stools and Denies nausea *Genitourinary Genitourinary: Denies difficulty voiding and Denies dysuria *Musculoskeletal Musculoskeletal: Reports arthralgias, Reports back pain and Reports myalgias *Neurologic Neurologic: Reports headache(s), Denies vertigo and Reports weakness Endocrine Endocrine: Reports fatigue Allergic/Immunologic Allergic/Immunologic: Reports wheezing Meds Home Medications and Allergies Home Medications Medication Instructions Recorded Confirmed Type gabapentin 100 mg capsule 100 mg PO HS Pain 04/21/19 07/17/23 History atorvastatin 10 mg tablet 10 mg PO Q48H Cholesterol 05/05/19 07/17/23 History aspirin 81 mg tablet,delayed 81 mg PO DAILY Heart Health 07/26/19 07/17/23 History release acetaminophen 650 mg 650 mg PO BID Pain 11/13/20 07/17/23 History tablet,extended release buspirone 10 mg tablet 10 mg PO TID Anxiety 11/13/20 07/17/23 History furosemide 20 mg tablet 20 mg PO DAILY Fluid 09/11/21 07/17/23 History digoxin 125 mcg (0.125 mg) tablet 125 mcg PO DAILY Heart rhythm 12/26/21 07/17/23 History diltiazem HCl 180 mg 180 mg PO DAILY Heart Rate 03/09/22 07/17/23 History capsule,extended release 24 hr, controlled potassium chloride 10 mEq 20 meq PO DAILY Supplement 02/26/23 07/17/23 History capsule,extended release pantoprazole 40 mg tablet,delayed 40 mg PO DAILYP PRN GERD #90 tabs 06/24/23 07/17/23 Rx release clopidogrel 75 mg tablet 75 mg PO DAILY Platelet Inhibitor 07/17/23 07/17/23 History metoprolol succinate 50 mg 50 mg PO DAILY High Blood Pressure 07/17/23 07/17/23 History tablet,extended release 24 hr New Prescriptions to Start Prescriptions: Allergies Allergy/AdvReac Type Severity Reaction Status Date / Time beef derived (bovine) Allergy Unknown Verified 07/17/23 15:04 allergy reaction lactose Allergy Unknown Verified 02/26/23 10:48 allergy reaction Penicillins Allergy Unknown Verified 02/26/23 10:48 allergy reaction Sulfa (Sulfonamide Allergy Verified 02/26/23 10:48 Antibiotics) Exam Data for Last 24 hours Vital signs and Labs for Last 24 Hours: Temp Pulse Resp BP Pulse Ox O2 Del Method O2 Flow Rate 97.7 F 61 18 164/90 H 99 Nasal Cannula 2 07/17/23 15:04 07/17/23 15:04 07/17/23 15:04 07/17/23 15:04 07/17/23 15:04 07/17/23 15:04 07/17/23 15:04 Laboratory Results - last 24 hr 07/17/23 07:51: VBG pH 7.35, VBG pCO2 57.0 H, VBG pO2 94.2 H, VBG HCO3 30.9 H, VBG Total CO2 32.7 H, VBG O2 Saturation 97.0 H, VBG Base Excess 5.3 H 07/17/23 08:00: WBC 7.3, RBC 4.95, Hgb 11.3 L, Hct 37.9, MCV 76.6 L, MCH 22.8 L, MCHC 29.7 L, RDW 17.8 H, Plt Count 242, MPV 8.3, Neut % (Auto) 75.2, Lymph % (Auto) 16.2, Hayes % (Auto) 7.5, Eos % (Auto) 0.6, Baso % (Auto) 0.5, Neut # (Auto) 5.5, Lymph # (Auto) 1.2, Hayes # (Auto) 0.5, Eos # (Auto) 0.1, Baso # (Au to) 0.0, PT 12.4, INR 1.16 H, APTT 27.1, Sodium 143, Potassium 3.7, Chloride 106, Carbon Dioxide 35 H, Anion Gap 5.7, BUN 23 H, Creatinine 0.70, Estimated Creat Clear 35, Estimated GFR 80, Est GFR ( Amer) 97, Glucose 110 H, Calcium 8.4, Total Bilirubin 0.5, AST 27, ALT 34, Alkaline Phosphatase 209 H, Troponin I 0.02, NT-Pro-B Natriuret Pep 2250 H, Total Protein 6.4, Albumin 3.7, Globulin 2.7, Albumin/Globulin Ratio 1.4, Urine Color Yellow, Urine Appearance Clear, Urine pH 6.0, Ur Specific [place] 1.025, Urine Protein 1+, Urine Glucose (UA) Negative, Urine Ketones Negative, Urine Blood Negative, Urine Nitrate Positive, Urine Bilirubin Negative, Urine Urobilinogen 0.2, Ur Leukocyte Esterase Negative, Urine RBC None, Urine WBC 3-5, Ur Squamous Epith Cells 3-5, Urine Bacteria 2+ 07/17/23 10:54: Troponin I 0.01 07/17/23 14:13: Troponin I 0.01 I & O for Last 24 hours: Intake & Output 07/15/23 07/16/23 07/17/23 07/18/23 11:59 11:59 11:59 11:59 Weight 110 lb 99 lb 9 oz Constitutional Constitutional: no acute distress *Routine HEENT Exam Head: Present normocephalic and atraumatic Eye: Present periorbital ecchymosis (left), periorbital swelling (left) and periorbital tenderness (left) ENT: Present mucous membranes dry *Routine Neck Exam Neck: Present supple and full ROM *Routine Respiratory Exam Respiratory: Present decreased breath sounds *Routine Cardiovascular Exam Cardiovascular: Present irregularly irregular *Routine Abdominal Exam Abdominal: Present soft, normoactive bowel sounds and tenderness (diffuse) *Routine Rectal Exam Rectal:: deferred *Routine Genitalia Exam Genitalia:: deferred *Routine Extremities Exam Extremities: Present edema (bilateral lower extremities); Absent cyanosis or clubbing *Routine Skin Exam Skin: Present intact and ecchymosis (and edema of left orbit); Absent erythema *Routine Neurological Exam Neurological: Present alert and oriented X3 H&P: Result Impressions Cervical spine CT - No acute bony abnormality identified. Moderate multilevel facet osteoarthropathy and mild canal stenosis at the C2-3 and C3-[address] - Suboptimal exam for detection of pulmonary embolism but no definite pulmonary embolism identified. No evidence of dissection. Moderate bilateral pleural effusions. Face CT - Soft tissue swelling without acute bony. Head CT - Left periorbital soft tissue swelling without definite underlying fracture. Changes of chronic microvascular ischemia. Head CTA - nothing acute Neck CTA - No significant arterial abnormality. Assessment and Plan *Assessment and plan (1) Fall at home: Status: Acute Category: Medical Code(s): W19.XXXA - Unspecified fall, initial encounter; Y92.009 - Unspecified place in unspecified non-institutional (private) residence as the place of occurrence of the external cause (2) Periorbital ecchymosis of left eye: Status: Acute Category: Medical Code(s): S00.12XA - Contusion of left eyelid and periocular area, initial encounter (3) Acute hypoxemic respiratory failure: Status: Acute Category: Medical Code(s): J96.01 - Acute respiratory failure with hypoxia (4) Bilateral pleural effusion: Status: Acute Category: Medical Code(s): J90 - Pleural effusion, not elsewhere classified (5) Tobacco abuse: Status: Chronic Category: Medical Code(s): Z72.0 - Tobacco use (6) Bilateral carotid artery stenosis: Status: Chronic Category: Medical Code(s): I65.23 - Occlusion and stenosis of bilateral carotid arteries (7) Gastroesophageal reflux disease: Status: Chronic Qualifiers: Esophagitis presence: esophagitis presence not specified Qualified Code(s): K21.9 - Gastro-esophageal reflux disease without esophagitis Category: Medical Code(s): K21.9 - Gastro-esophageal reflux disease without esophagitis (8) Hyperlipidemia: Status: Chronic Qualifiers: Hyperlipidemia type: mixed hyperlipidemia Qualified Code(s): E78.2 - Mixed hyperlipidemia Category: Medical Code(s): E78.5 - Hyperlipidemia, unspecified (9) Hypertension: Status: Chronic Qualifiers: Hypertension type: essential hypertension Qualified Code(s): I10 - Essential (primary) hypertension Category: Medical Code(s): I10 - Essential (primary) hypertension (10) Arteriosclerotic cardiovascular disease: Status: Chronic Category: Medical Code(s): I25.10 - Atherosclerotic heart disease of [place] coronary artery without angina pectoris (11) Status post carotid endarterectomy: Status: Chronic Category: Surgical Code(s): Z98.890 - Other specified postprocedural states (12) Anxiety disorder: Status: Chronic Category: Medical Code(s): F41.9 - Anxiety disorder, unspecified (13) Diastolic dysfunction: Status: Chronic Category: Medical Code(s): I51.89 - Other ill-defined heart diseases (14) Pulmonary HTN: Status: Chronic Category: Medical Code(s): I27.20 - Pulmonary hypertension, unspecified (15) Carotid artery stenosis: Status: Chronic Qualifiers: Laterality: bilateral Qualified Code(s): I65.23 - Occlusion and stenosis of bilateral carotid arteries Category: Medical Code(s): I65.29 - Occlusion and stenosis of unspecified carotid artery (16) HOCM (hypertrophic obstructive cardiomyopathy): Status: Chronic Category: Medical Code(s): I42.1 - Obstructive hypertrophic cardiomyopathy (17) Paroxysmal atrial fibrillation: Status: Chronic Category: Medical Code(s): I48.0 - Paroxysmal atrial fibrillation (18) group home current use of anticoagulant: Status: Chronic Category: Medical Code(s): Z79.01 - group home (current) use of anticoagulants (19) Presence of Watchman left atrial appendage closure device: Status: Chronic Category: Medical Code(s): Z95.818 - Presence of other cardiac implants and grafts (20) TIA (transient ischemic attack): Status: Chronic Category: Medical Code(s): G45.9 - Transient cerebral ischemic attack, unspecified (21) Tobacco use disorder, moderate, dependence: Status: Chronic Category: Medical Code(s): F17.200 - Nicotine dependence, unspecified, uncomplicated Plan Will check patient for covid/flu as she has been sick for the last week. Will continue supplemental oxygen. Will consult cardiology. Will discuss further care with Dr. Puente.
[2023-07-17 18:06] LABS: Coronavirus 19, PCR Not Detected (NotDetected); Influenza A, PCR Not Detected (NotDetected); Influenza B, PCR Not Detected (NotDetected)
--- NOTE | 2023-07-17 18:24 | PC.NURSE ---
PT HOME MEDICATIONS PLACED IN [facility]
[2023-07-17] MEDS: FUROSEMIDE 20 MG/2 ML VIAL IV (18:42)
[2023-07-17] MEDS: ATORVASTATIN 10MG TABLET 10 MG PO (20:50)
[2023-07-17] MEDS: BUSPIRONE HCL 10 MG TABLET PO (20:52)
[2023-07-17] MEDS: GABAPENTIN 100MG CAPSULE 100 MG PO (20:53)
[2023-07-17] MEDS: PANTOPRAZOLE 40MG TABLET 40 MG PO (20:53)
[2023-07-18] VITALS (9 sets, daily range): BP systolic 128–174; BP diastolic 54–83; PULSE 58–87; RESP 18; TEMP 36.5–36.6; O2SAT 88–98; BMI 16.5
--- NOTE | 2023-07-18 03:48 | PC.NURSE ---
VSS/AFEBRILE. A/O X 4. FAMILY MEMBER AT BEDSIDE. AMBULATORY TO WITH ASSIST X 1. PERIORBITAL HEMATOMA LEFT EYE FROM FALL AT HOME. DENIES PAIN/DISCOMFORT. 02 AT 2LNC. HAS 2 SMALL OPEN AREA AT COCCYX WITH BARRIER CREAM PRESENT. HAS HAD A QUIET UNEVENTFUL NIGHT.
--- NOTE | 2023-07-18 07:43 | CA_ITS ---
APPROVED REPORT EXAM: Comprehensive 2D, Doppler, and color-flow Echocardiogram Photography Assistant: Kaylah Littlejohn, RCS, RVS Ht: 5 ft 4 in Wt: 99lbs BSA: 1.45 BP: 174/83 mmHg Indications: Respiratory failure, Afib, Watchman device,CAD, Smoker 2D Dimensions Left Atrium 3.63 cm F: 2.7 - 3.8 LA Volume 44.70 mL LA Volume Index 30.83 mL/m2 (M/F) 16-34 EF AP4 67.00 % GL Strain -27.7 % M-Mode Dimensions RVDd 3.06 cm (0.9-2.6) LA Diam 4.67 cm (1.9-4.0) LVDd 4.54 cm (3.5-5.7) LVDs 2.59 cm (3.5-5.7) IVSd 1.01 cm (0.6-1.1) PWd 0.84 cm (0.6-1.1) EF (Teich) 74.20% EPSs 0.61 cm FS 43.00% EDV (Teich) 94.40 mL TAPSE 1.54 (<1.7) ESV (Teich) 24.40 mL LV Diastology E Decel Time 157 (160-240 msec) E/A Ratio 4.0 MED A' 3.30 cm/s LAT A' 3.30 cm/s Aortic Valve KARTHIK Index 0.98 cm2/m2 AoV Peak Gregorio. 187.0 (50-130 cm/s) AI PHT 173.00 ms AO Peak GR. 14.10 mmHg AO Mean GR. 7.10 (<5 mmHg) AO VTI 34.6 (18-25 cm) KARTHIK (VTI) 1.46 (2.5-4.5 cm2) Mitral Valve MV E Max Gregorio. 104.0 (40-130 cm/s) MV A Velocity 26.0 (40-130 cm/s) E/A Ratio 4.02 MV PHT 46.0 ms Pulmonary Valve AL End VMAX 244.0 cm/s Tricuspid Valve TR P. Velocity 407.00 cm/s RAP Estimate 10.00 mmHg RVSP 76.40 mmHg Left Ventricle The left ventricle is normal size. The left ventricular systolic function is normal. The left ventricular ejection fraction is within the normal range. There is normal left ventricular wall thickness. There is normal LV segmental wall motion. Diastolic function is indeterminate. LVEF is 60%. Right Ventricle Right ventricle is mildly to moderately dilated. Right ventricle is mildly hypokinetic. Atria Left atrium is severely dilated. Right atrium is severely dilated. There is no Doppler evidence of interatrial shunt. Aortic Valve The aortic valve is mildly thickened. There is no aortic valvular stenosis. Mild aortic regurgitation. Mitral Valve The mitral valve is mildly thickened. No evidence of mitral valve stenosis. Mild mitral regurgitation. Tricuspid Valve The tricuspid valve leaflets are thin and pliable. Moderate tricuspid regurgitation. RVSP > 60 mmHg. Pulmonic Valve The pulmonary valve is normal in structure. Moderate pulmonic regurgitation. Great Vessels The aortic root is normal in size. The ascending aorta is normal in size. The IVC is plethoric. Pericardium There is no pericardial effusion. Pleural effusion is present. Other Information Study Quality: Fair Conclusion Normal LV systolic function. Mildly to moderately dilated RV with mild reduction in RV function. Severe biatrial dilation. Mild MR. Mild AI. Moderate TR. Moderate AL. Markedly elevated RVSP > 60 mmHg. Pleural effusion is present. Electronically signed by : Michaela Lowery MD 07/18/2023 13:44:38
--- NOTE | 2023-07-18 08:21 | EXP.ACUTE.PN ---
Subjective *Date: 07/18/23 *Time: 08:21 Interval history: Patient is feeling a little better this am. She was able to sleep last night and she has been eating. Her only complaint of pain is in her left eye. Medical Exam Vital signs and Labs for Last 24 Hours: Vital Signs Temp Pulse Pulse Resp BP BP Pulse Ox 07/18/23 06:27 07/18/23 04:52 07/18/23 04:00 98 F 87 18 166/71 H 91 L 07/18/23 03:00 07/18/23 00:50 07/17/23 23:56 98 F 74 16 146/76 H 94 L 07/17/23 22:58 07/17/23 21:00 07/17/23 20:00 96 07/17/23 20:00 97.9 F 76 17 153/83 H 96 07/17/23 17:00 07/17/23 15:00 07/17/23 15:04 97.7 F 61 18 164/90 H 99 07/17/23 15:01 98.2 F 62 20 150/84 H 07/17/23 14:31 67 164/90 H 96 07/17/23 14:00 82 167/80 H 96 07/17/23 13:00 84 160/78 H 86 L 07/17/23 12:30 80 161/85 H 98 07/17/23 12:01 68 168/75 H 95 07/17/23 11:30 77 175/74 H 93 L 07/17/23 11:00 76 179/80 H 92 L 07/17/23 10:30 61 157/70 H 92 L 07/17/23 10:00 68 151/72 H 92 L 07/17/23 09:00 64 144/71 H 94 L 07/17/23 08:30 64 170/86 H 93 L O2 Del Method O2 Flow Rate 07/18/23 06:27 Nasal Cannula 2 07/18/23 04:52 Nasal Cannula 2 07/18/23 04:00 Nasal Cannula 07/18/23 03:00 Nasal Cannula 2 07/18/23 00:50 Nasal Cannula 2 07/17/23 23:56 Nasal Cannula 07/17/23 22:58 Nasal Cannula 2 07/17/23 21:00 Nasal Cannula 2 07/17/23 20:00 Nasal Cannula 2 07/17/23 20:00 Nasal Cannula 07/17/23 17:00 Nasal Cannula 2 07/17/23 15:00 Nasal Cannula 2 07/17/23 15:04 Nasal Cannula 2 07/17/23 15:01 Nasal Cannula 2 07/17/23 14:31 07/17/23 14:00 07/17/23 13:00 07/17/23 12:30 07/17/23 12:01 07/17/23 11:30 Nasal Cannula 07/17/23 11:00 07/17/23 10:30 07/17/23 10:00 07/17/23 09:00 07/17/23 08:30 Intake and Output 07/17/23 07/18/23 07/18/23 19:59 03:59 11:59 Intake Total 240 / 480 240 / 480 Output Total 0 / 0 0 / 0 Balance 240 / 480 240 / 480 0 / 480 Intake: Intake, Oral Amount 240 / 480 240 / 480 Output: Output, Urine Amount 0 / 0 0 / 0 Other: Number of Voids 1 Number of Unmeasured Voids 1 2 Weight 99 lb 9 oz 99 lb 8 oz Patient Weight 07/18/23 11:59 Weight 99 lb 8 oz Laboratory Results - last 24 hr 07/17/23 08:00: WBC 7.3, RBC 4.95, Hgb 11.3 L, Hct 37.9, MCV 76.6 L, MCH 22.8 L, MCHC 29.7 L, RDW 17.8 H, Plt Count 242, MPV 8.3, Neut % (Auto) 75.2, Lymph % (Auto) 16.2, [place] % (Auto) 7.5, Eos % (Auto) 0.6, Baso % (Auto) 0.5, Neut # (Auto) 5.5, Lymph # (Auto) 1.2, [place] # (Auto) 0.5, Eos # (Auto) 0.1, Baso # (Auto) 0.0, PT 12.4, INR 1.16 H, APTT 27.1, Sodium 143, Potassium 3.7, Chloride 106, Carbon Dioxide 35 H, Anion Gap 5.7, BUN 23 H, Creatinine 0.70, Estimated Creat Clear 35, Estimated GFR 80, Est GFR ( Amer) 97, Glucose 110 H, Calcium 8.4, Total Bilirubin 0.5, AST 27, ALT 34, Alkaline Phosphatase 209 H, Troponin I 0.02, NT-Pro-B Natriuret Pep 2250 H, Total Protein 6.4, Albumin 3.7, Globulin 2.7, Albumin/Globulin Ratio 1.4, Urine Color Yellow, Urine Appearance Clear, Urine pH 6.0, Ur Specific Christopher 1.025, Urine Protein 1+, Urine Glucose (UA) Negative, Urine Ketones Negative, Urine Blood Negative, Urine Nitrate Positive, Urine Bilirubin Negative, Urine Urobilinogen 0.2, Ur Leukocyte Esterase Negative, Urine RBC None, Urine WBC 3-5, Ur Squamous Epith Cells 3-5, Urine Bacteria 2+ 07/17/23 10:54: Troponin I 0.01 07/17/23 14:13: Troponin I 0.01 07/17/23 18:00: SARS-CoV-2 (PCR) Not detected, Influenza A Untype (PCR) Not detected, Influenza Type B (PCR) Not detected I & O for Labs for Last 24 Hours: Intake & Output 07/15/23 07/16/23 07/17/23 07/18/23 11:59 11:59 11:59 11:59 Intake Total 480 / 480 Output Total 0 / 0 Balance 480 / 480 Weight 110 lb 99 lb 8 oz Constitutional: Present no acute distress Eyes: Present eye pain (with periorbital edema and ecchymosis on the left) Respiratory: Present decreased breath sounds Comment:: Irregular rhythm with episodes of bradycardia GI: Present soft and normal bowel sounds; Absent distention or tenderness Extremities: Present edema (bilateral lower extremities); Absent clubbing or cyanosis Skin: Present intact Neuro: Present alert and awake Assessment and Plan *Assessment and plan (1) Fall at home: Status: Acute Category: Medical Code(s): W19.XXXA - Unspecified fall, initial encounter; Y92.009 - Unspecified place in unspecified non-institutional (private) residence as the place of occurrence of the external cause (2) Periorbital ecchymosis of left eye: Status: Acute Category: Medical Code(s): S00.12XA - Contusion of left eyelid and periocular area, initial encounter (3) Acute hypoxemic respiratory failure: Status: Acute Category: Medical Code(s): J96.01 - Acute respiratory failure with hypoxia (4) Bilateral pleural effusion: Status: Acute Category: Medical Code(s): J90 - Pleural effusion, not elsewhere classified (5) Tobacco abuse: Status: Chronic Category: Medical Code(s): Z72.0 - Tobacco use (6) Bilateral carotid artery stenosis: Status: Chronic Category: Medical Code(s): I65.23 - Occlusion and stenosis of bilateral carotid arteries (7) Gastroesophageal reflux disease: Status: Chronic Qualifiers: Esophagitis presence: esophagitis presence not specified Qualified Code(s): K21.9 - Gastro-esophageal reflux disease without esophagitis Category: Medical Code(s): K21.9 - Gastro-esophageal reflux disease without esophagitis (8) Hyperlipidemia: Status: Chronic Qualifiers: Hyperlipidemia type: mixed hyperlipidemia Qualified Code(s): E78.2 - Mixed hyperlipidemia Category: Medical Code(s): E78.5 - Hyperlipidemia, unspecified (9) Hypertension: Status: Chronic Qualifiers: Hypertension type: essential hypertension Qualified Code(s): I10 - Essential (primary) hypertension Category: Medical Code(s): I10 - Essential (primary) hypertension (10) Arteriosclerotic cardiovascular disease: Status: Chronic Category: Medical Code(s): I25.10 - Atherosclerotic heart disease of ne[place] coronary artery without angina pectoris (11) Status post carotid endarterectomy: Status: Chronic Category: Surgical Code(s): Z98.890 - Other specified postprocedural states (12) Anxiety disorder: Status: Chronic Category: Medical Code(s): F41.9 - Anxiety disorder, unspecified (13) Diastolic dysfunction: Status: Chronic Category: Medical Code(s): I51.89 - Other ill-defined heart diseases (14) Pulmonary HTN: Status: Chronic Category: Medical Code(s): I27.20 - Pulmonary hypertension, unspecified (15) Carotid artery stenosis: Status: Chronic Qualifiers: Laterality: bilateral Qualified Code(s): I65.23 - Occlusion and stenosis of bilateral carotid arteries Category: Medical Code(s): I65.29 - Occlusion and stenosis of unspecified carotid artery (16) HOCM (hypertrophic obstructive cardiomyopathy): Status: Chronic Category: Medical Code(s): I42.1 - Obstructive hypertrophic cardiomyopathy (17) Paroxysmal atrial fibrillation: Status: Chronic Category: Medical Code(s): I48.0 - Paroxysmal atrial fibrillation (18) longterm current use of anticoagulant: Status: Chronic Category: Medical Code(s): Z79.01 - terminal gauger (current) use of anticoagulants (19) Presence of Watchman left atrial appendage closure device: Status: Chronic Category: Medical Code(s): Z95.818 - Presence of other cardiac implants and grafts (20) TIA (transient ischemic attack): Status: Chronic Category: Medical Code(s): G45.9 - Transient cerebral ischemic attack, unspecified (21) Tobacco use disorder, moderate, dependence: Status: Chronic Category: Medical Code(s): F17.200 - Nicotine dependence, unspecified, uncomplicated Plan Covid/flu were negative. She has improved clinically. Cardiology has ordered an echo. Will get an ice pack for her eye. Will discuss further care with Dr. Puente.
--- NOTE | 2023-07-18 08:33 | PC.NURSE ---
SRNA NOTE: Hitesh Suh notified of elevated BP @0800 vitals. Enmanuel SRNA
[2023-07-18] MEDS: DICYCLOMINE 10MG CAPSULE 10 MG PO (08:43)
--- NOTE | 2023-07-18 09:23 | PC.NURSE ---
PT/OT consult put in per Case Management, Peri
[2023-07-18] MEDS: DIGOXIN 0.125 MG 125 MCG PO (09:25)
[2023-07-18] MEDS: METOPROLOL SUCCINATE 50 MG PO (09:25)
[2023-07-18] MEDS: FUROSEMIDE 20 MG PO (09:26)
[2023-07-18] MEDS: BUSPIRONE HCL 10 MG PO (09:26)
--- NOTE | 2023-07-18 09:31 | PC.NURSE ---
courtesy tech note: pt rounded on. no verbalized needs at this time. call light w/in reach.
--- NOTE | 2023-07-18 10:27 | HMH.OTEV ---
OT Inpatient Evaluation Rehab OT IP Evaluation Start: 07/18/23 09:18 Freq: ONCE Status: Active Protocol: Document 07/18/23 10:24 CALEB (Rec: 07/18/23 10:27 CALEB [id number]) Rehab OT IP Assessment Subjective History This patient is an 83-year-old female with a history of atrial fibrillation, TIA, aortic insufficiency, CAD, hypertrophic cardiomyopathy, pulmonary hypertension, hypertension, and hyperlipidemia on aspirin and Plavix presenting to the emergency department for evaluation with concern for an unwitnessed fall. Patient reports that she fell asleep on the couch last night, and she thought she heard the phone ringing earlier this morning, so she got up to get the phone. She got tangled up in the blankets and had a fall. She states that she remembers getting up in the next and that she knew she was waking up on the floor. She called her daughter immediately after waking up, and her daughter brought her in for evaluation. She currently complains of headache, left eye pain, and nausea. She denies any other injuries or complaints, and she states that she was not having any issues last night for going to bed. In summary, this patient is a 83-year-old female presenting to the Emergency Department for evaluation of headache, left eye pain, and left eye periorbital ecchymosis after a ground-level fall. Patient also noted to be borderline hypoxic with oxygen saturation of 91% on room air. She does have a history of pulmonary hypertension. Differential diagnoses considered include but are not limited to intracranial hemorrhage, skull fracture, globe injury, polytrauma. Ruling out the most morbid conditions drove assessment. It should be noted patient's history includes atrial fibrillation, pulmonary hypertension, hypertension, hyperlipidemia, aortic insufficiency, atrial fibrillation, CAD, hypertrophic cardiomyopathy, carotid artery stenosis, which may or may not be at goal therapy. This complicates all aspects of care by increasing patient's risk for morbidity. I reviewed patient's past medical records and noted previous ED evaluation for GI bleed, as well as most recent cardiology evaluation noting stable CAD, mild aortic insufficiency, and chronic atrial fibrillation that is rate controlled. No anticoagulation, as patient is status post watchman's procedure and has history of GI bleed. On exam, the patient is alert and oriented with no focal neurologic deficits. She does have obvious head trauma with significant left periorbital ecchymosis and hematoma. Mild conjunctival injection of the left eye without obvious concerns for globe injury. Workup included CBC, CMP, coags, troponin, BNP, EKG, CT head, CTA of the head and neck , CT C-spine, and CTA of the chest given hypoxia. She was given oral Tylenol and IV Zofran for symptomatic improvement. I independently interpreted CT scans prior to the radiologist read and noted bilateral pleural effusions as well as pulmonary edema on her chest CT, however no other acute findings such as intracranial hemorrhage, fracture, or other concern. Please see their read for final interpretation. Labs were obtained that demonstrated elevated BNP without other acute concern at this time. Patient continues to be hypoxic on room air with oxygen saturations in the mid 80s. She was placed on 2 L nasal cannula with improvement to 91 to 92%. She desats even lower with ambulation. Given this, I called and had an interactive discussion with her primary care provider, Dr. Puente, who advised that he would admit the patient for further evaluation and management. She was given 40 mg of IV Lasix prior to admission with good urine output but no improvement in her oxygenation .. At this time, patient was admitted in stable condition. (above as per ER physician) The patient states she does not know how long she was on the floor. She thinks she must have passed out. She may have hit the small table with her eye. She states she has had increased edema in her legs for the past few months. Dr. Floyd is her graphic specialist and she has not seen him in a while but does have an appt in August. She also has felt poorly this past week with a cough and congestion. She has also been weak. Patient lives alone with family near by that checks on her daily. Uses a RW to ambulate. Subjective I need to use the restroom. Analysis Patient's ADL re- training, transfers, bed mobility and safety to maneuver throughout environment. Patient required CGA to manevuer safely. Objective Patient Orientation Person,Name,Age,Birthday,Year Right Upper Extremity Gross ROM WFL Left Upper Extremity Gross ROM WFL Bed Mobility bed mobility - supine/sit Assist Level Independent Transfer Training Sit/Stand/Pivot Transfer Assist Level Supervision/Stand by Chair Transfer Ability Supervision/Stand by Chair Transfer Technique Sit to/from Ambulatory Chair Transfer Assistive Devices Rolling Walker Overall Commode/Toilet Transfer Ability Independent Commode/Toilet Transfer Technique Sit to/from Ambulatory Rehab OT IP prob,goals,plan Problems Date of Evaluation: 07/18/23 Rehab Potential Rehab Potential Innapropriate for Skilled Therapy Equipment Needs Assistive Devices Rolling / Wheeled Walker Discharge Plan OT Discharge Plan Patient appears to be at baseline with ADLs and fx'l mobility at this time. Once medically d/c, patient may return home with recommendation of services. Eval Complexity Eval Charge Codes 65663 - Low Complexity PHYSICIAN CERTIFICATION: I certify the specified therapy services for Suri Banks are required, authorized, and reviewed every 30 days.
--- NOTE | 2023-07-18 10:34 | P.CONCA_ITS ---
History of Present Illness History of Present Illness Consult date: 07/18/23 Requesting physician: Nazanin Puente Chief complaint: syncope, history of apical HOCM Additional Medical History:: 1. Hypertension A. Echocardiogram 09/05/2022, marked biatrial enlargement with EF 50% and no regional WMA. Moderate RV enlargement. Trace AR, moderate AK, mild MR and moderate TR noted with RVSP of 50 mmHg. 2. Carotid artery stenosis A. History of right carotid endarterectomy B. History of left carotid endarterectomy 07/2021 C. Less than 50% bilaterally, carotid duplex 09/04/2022 D. Neck CTA 07/17/2023 no significant arterial abnormality. 3. History of apical HOCM noted on cardiac catheterization 2018. Treated with beta-zackery and calcium channel zackery. A. Echo, 04/22/2019, mild biatrial enlargement, normal LV size, mild concentric LVH, EF 55%, no regional WMA. Grade 2 DD. Mild RV enlargement with normal contractility. Mild MR and moderate TR with RVSP 64 mmHg consistent with moderately elevated RVSP. B. Echocardiogram, 09/05/2022, normal LV size and function with no regional wall motion abnormality. 4. Tobacco use continued A. History of Pulmonary HTN 5. Chronic atrial fibrillation A. Watchman device implantation, Dr. Parmar, , 2020 due to history of GI bleed. 6. CAD A. [facility], 11/02/2020, patent coronary arteries involving the LAD and dominant circumflex. Severe stenosis of the nondominant RCA, normal EF with small degree of apical HOCM. 7. History of GI bleed 8. Celiac artery stent placed, 06/05/2022, [facility] 9. Right subclavian artery stent, 04/2019 10. PAD, followed by Dr. Luis Jarrell. Abdominal CTA, 10/2022, chronic occlusions of the bilateral SFA, moderate or severe stenosis involving the right and left main renal arteries, right common femoral artery and profundofemoral artery along with left common iliac and external iliac arteries. History of present illness: This patient is an 83-year-old female with a history of atrial fibrillation, TIA, aortic insufficiency, CAD, hypertrophic cardiomyopathy, pulmonary hypertension, hypertension, and hyperlipidemia on aspirin and Plavix presenting to the emergency department for evaluation with concern for an unwitnessed fall. Patient reports that she fell asleep on the couch last night, and she thought she heard the phone ringing earlier this morning, so she got up to get the phone. She got tangled up in the blankets and had a fall. She states that she remembers getting up in the next and that she knew she was waking up on the floor. She called her daughter immediately after waking up, and her daughter brought her in for evaluation. She currently complains of headache, left eye pain, and nausea. She denies any other injuries or complaints, and she states that she was not having any issues last night for going to bed. In summary, this patient is a 83-year-old female presenting to the Emergency Department for evaluation of headache, left eye pain, and left eye periorbital ecchymosis after a ground-level fall. Patient also noted to be borderline hypoxic with oxygen saturation of 91% on room air. She does have a history of pulmonary hypertension. Differential diagnoses considered include but are not limited to intracranial hemorrhage, skull fracture, globe injury, polytrauma. Ruling out the most morbid conditions drove assessment. It should be noted patient's history includes atrial fibrillation, pulmonary hypertension, hypertension, hyperlipidemia, aortic insufficiency, atrial fibrillation, CAD, hypertrophic cardiomyopathy, carotid artery stenosis, which may or may not be at goal therapy. This complicates all aspects of care by increasing patient's risk for morbidity. I reviewed patient's past medical records and noted previous ED evaluation for GI bleed, as well as most recent cardiology evaluation noting stable CAD, mild aortic insufficiency, and chronic atrial fibrillation that is rate controlled. No anticoagulation, as patient is status post watchman's procedure and has history of GI bleed. On exam, the patient is alert and oriented with no focal neurologic deficits. She does have obvious head trauma with significant left periorbital ecchymosis and hematoma. Mild conjunctival injection of the left eye without obvious concerns for globe injury. Workup included CBC, CMP, coags, troponin, BNP, EKG, CT head, CTA of the head and neck, CT C-spine, and CTA of the chest given hypoxia. She was given oral Tylenol and IV Zofran for symptomatic improvement. I independently interpreted CT scans prior to the radiologist read and noted bilateral pleural effusions as well as pulmonary edema on her chest CT, however no other acute findings such as intracranial hemorrhage, fracture, or other concern. Please see their read for final interpretation. Labs were obtained that demonstrated elevated BNP without other acute concern at this time. Patient continues to be hypoxic on room air with oxygen saturations in the mid 80s. She was placed on 2 L nasal cannula with improvement to 91 to 92%. She desats even lower with ambulation. Given this, I called and had an interactive discussion with her primary care provider, Dr. Puente, who advised that he would admit the patient for further evaluation and management. She was given 40 mg of IV Lasix prior to admission with good urine output but no improvement in her oxygenation. At this time, patient was admitted in stable condition. (above as per ER physician) The patient states she does not know how long she was on the floor. She thinks she must have passed out. She may have hit the small table with her eye. She states she has had increased edema in her legs for the past few months. 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 She also has felt poorly this past week with a cough and congestion. She has also been weak. The above per CATHLEEN Crabtree for Dr. Puente Events as noted above discussed with patient. Occasional chest pain noted but patient unable to specify whether this is with activity or at rest. Lower extremity edema has been gradually getting worse over the last few weeks. Patient does get easily fatigued and tired. Troponins this admission are normal. Elevated BNP noted with moderate bilateral pleural effusions on chest CT. Suboptimal study for detection of pulmonary embolus but no definite pulmonary embolism identified. No evidence of dissection. Admitted for syncope with face, head CTs both negative for acute fracture. Periorbital swelling noted. Head CTA negative for acute process. Neck CTA negative for acute arterial process. [facility] Disclaimer: The information contained in this section may have been updated after the patient was seen, as this information can be updated by other users. 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 NSTEMI (non-ST elevated myocardial infarction) Paroxysmal atrial fibrillation Presence of Watchman left atrial appendage closure device Pulmonary HTN Rapid atrial fibrillation Subclavian artery stenosis, right TIA (transient ischemic attack) Tobacco abuse Surgical History (Updated 07/17/23 @ 16:41 by CATHLEEN Crabtree) History of appendectomy History of cholecystectomy History of colonoscopy History of hysterectomy History of right heart catheterization (RHC) Status post carotid endarterectomy Family History Diabetes Coronary artery disease Family history of diabetes mellitus type II Family history of myocardial infarction Cancer Hypertension Stroke Social History Smoking Status: Current every day smoker tobacco type: cigarettes packs per day: 1 alcohol intake: never substance use type: denies use current occupational status: retired Travel in the last 8 weeks: None household members: none housing: house lives independently: Yes marital status: single education level: middle school service: No caffeine: No special fanny needs: No agree to transfusion: No do you feel safe at home: Yes victim of physical abuse: No victim of emotional abuse: No victim of sexual abuse: No would you like helpful sources: No Review of Systems Review of Systems Review of systems:: pertinent systems reviewed and negative unless documented below Constitutional Constitutional: Reports headache(s) and Reports weakness ENT Ears, Nose, Mouth, and Throat: Reports headache(s) and Denies vertigo *Cardiovascular Cardiovascular: Denies chest pain *Neurologic Neurologic: Reports headache(s), Denies vertigo and Reports weakness Exam Data for Last 24 hours Vital signs and Labs for Last 24 Hours: Temp Pulse Resp BP Pulse Ox O2 Del Method O2 Flow Rate 97.7 F 70 18 174/83 H 93 L Nasal Cannula 2 07/18/23 08:00 07/18/23 09:25 07/18/23 08:00 07/18/23 08:00 07/18/23 08:00 07/18/23 10:21 07/18/23 10:21 Laboratory Results - last 24 hr 07/17/23 10:54: Troponin I 0.01 07/17/23 14:13: Troponin I 0.01 07/17/23 18:00: SARS-CoV-2 (PCR) Not detected, Influenza A Untype (PCR) Not detected, Influenza Type B (PCR) Not detected I & O for Last 24 hours: Intake & Output 07/15/23 07/16/23 07/17/23 07/18/23 11:59 11:59 11:59 11:59 Intake Total 720 / 720 Output Total 0 / 0 Balance 720 / 720 Weight 110 lb 99 lb 3.328 oz Constitutional Constitutional: no acute distress *Routine Respiratory Exam Respiratory: Present rhonchi, crackles and diminished air movement *Routine Cardiovascular Exam Cardiovascular: Present irregularly irregular *Routine Extremities Exam Extremities: Present edema *Routine Neurological Exam Neurological: Present alert and oriented X3 Meds Home Medications and Allergies Home Medications Medication Instructions Recorded Confirmed Type gabapentin 100 mg capsule 100 mg PO HS NEUROPATHY 04/21/19 07/17/23 History atorvastatin 10 mg tablet 10 mg PO Q48H Cholesterol 05/05/19 07/17/23 History aspirin 81 mg tablet,delayed 81 mg PO DAILY Heart Health 07/26/19 07/17/23 History release acetaminophen 650 mg 650 mg PO BID Pain 11/13/20 07/17/23 History tablet,extended release buspirone 10 mg tablet 10 mg PO TID Anxiety 11/13/20 07/17/23 History furosemide 20 mg tablet 20 mg PO DAILY Fluid 09/11/21 07/17/23 History digoxin 125 mcg (0.125 mg) tablet 125 mcg PO DAILY Heart rhythm 12/26/21 07/17/23 History diltiazem HCl 180 mg 180 mg PO DAILY Heart Rate 03/09/22 07/17/23 History capsule,extended release 24 hr, controlled potassium chloride 10 mEq 20 meq PO DAILY Supplement 02/26/23 07/17/23 History capsule,extended release pantoprazole 40 mg tablet,delayed 40 mg PO DAILYP PRN GERD #90 tabs 06/24/23 07/17/23 Rx release acetaminophen 300 mg-codeine 30 mg 300 tab PO TIDP PRN Moderate Pain 07/17/23 07/18/23 History tablet (Scale Score 5-6) clopidogrel 75 mg tablet 75 mg PO DAILY Platelet Inhibitor 07/17/23 07/17/23 History dicyclomine 20 mg tablet 20 mg PO QIDP PRN STOMACH CRAMPING 07/17/23 07/18/23 History fluticasone propionate 50 50 mcg intranasal BIDP PRN 07/17/23 07/18/23 History mcg/actuation nasal Allergic Symptoms spray,suspension (Flonase Allergy Relief) metoprolol succinate 50 mg 50 mg PO DAILY High Blood Pressure 07/17/23 07/17/23 History tablet,extended release 24 hr New Prescriptions to Start Prescriptions: Allergies Allergy/AdvReac Type Severity Reaction Status Date / Time beef derived (bovine) Allergy Unknown Verified 07/17/23 15:04 allergy reaction lactose Allergy Unknown Verified 02/26/23 10:48 allergy reaction Penicillins Allergy Unknown Verified 02/26/23 10:48 allergy reaction Sulfa (Sulfonamide Allergy Verified 02/26/23 10:48 Antibiotics) Assessment and Plan *Assessment and plan (1) Fall at home: Status: Acute Qualifiers: Encounter type: initial encounter Qualified Code(s): W19.XXXA - Unspecified fall, initial encounter; Y92.009 - Unspecified place in unspecified non-institutional (private) residence as the place of occurrence of the external cause Category: Medical Code(s): W19.XXXA - Unspecified fall, initial encounter; Y92.009 - Unspecified place in unspecified non-institutional (private) residence as the place of occurrence of the external cause (2) Periorbital ecchymosis of left eye: Status: Acute Qualifiers: Encounter type: initial encounter Qualified Code(s): S00.12XA - Contusion of left eyelid and periocular area, initial encounter Category: Medical Code(s): S00.12XA - Contusion of left eyelid and periocular area, initial encounter (3) HOCM (hypertrophic obstructive cardiomyopathy): Status: Chronic Category: Medical Code(s): I42.1 - Obstructive hypertrophic cardiomyopathy (4) Acute hypoxemic respiratory failure: Status: Acute Category: Medical Code(s): J96.01 - Acute respiratory failure with hypoxia (5) Tobacco abuse: Status: Chronic Category: Medical Code(s): Z72.0 - Tobacco use (6) Hypertension: Status: Chronic Qualifiers: Hypertension type: essential hypertension Qualified Code(s): I10 - Essential (primary) hypertension Category: Medical Code(s): I10 - Essential (primary) hypertension (7) Hyperlipidemia: Status: Chronic Qualifiers: Hyperlipidemia type: mixed hyperlipidemia Qualified Code(s): E78.2 - Mixed hyperlipidemia Category: Medical Code(s): E78.5 - Hyperlipidemia, unspecified (8) CAD (coronary artery disease): Status: Chronic Qualifiers: Associated angina: without angina Coronary Disease-Associated Artery/Lesion type: [place] artery [place] vs. transplanted heart: [place] heart Qualified Code(s): I25.10 - Atherosclerotic heart disease of [place] coronary artery without angina pectoris Category: Medical Code(s): I25.10 - Atherosclerotic heart disease of [place] coronary artery without angina pectoris (9) Bilateral pleural effusion: Status: Acute Category: Medical Code(s): J90 - Pleural effusion, not elsewhere classified Plan 1. Unwitnessed syncopal spell with left periorbital ecchymosis without fracture -With history of apical HOCM, would be concerned for recurrence/progression of HOCM and possible arrhythmia -Troponins normal this admission -Echocardiogram pending -Continue to monitor on telemetry to look for episodes of ventricular tachycardia or bradycardia that might cause syncope -Continue metoprolol and diltiazem while monitoring heart rate and blood pressure 2. Elevated BNP with evidence of bilateral pleural effusions noted and worsening lower extremity edema -Concern for worsening ejection fraction, echocardiogram pending. -Continue Lasix and monitor renal function 3. CAD with normal troponins 4. Continued tobacco use 5. Hypoxic respiratory failure requiring supplemental oxygen 6. Carotid artery stenosis with history of bilateral endarterectomy with no acute process noted on neck CTA 7. Chronic atrial fibrillation with history of Watchman device placement -No anticoagulation due to history of GI bleed 8. Abnormal EKG with ST segment depression in inferior lateral leads unchanged compared to 2021 tracing. Likely related to digoxin. 9. Abdominal and lower extremity vascular disease followed by Dr. Smith Echo results: Conclusion Normal LV systolic function. Mildly to moderately dilated RV with mild reduction in RV function. Severe biatrial dilation. Mild MR. Mild AI. Moderate TR. Moderate AK. Markedly elevated RVSP > 60 mmHg. Pleural effusion is present. Electronically signed by : Michaela Lowery MD 07/18/2023 13:44:38 Recommend continue diuresis over the weekend and consider Pulmonary evaluation for Pulmonary HTN. No evidence of recurrent apical HOCM. Continue diltiazem and metoprolol therapy. Continue to monitor for arrhythmias over the weekend. Patient may need a pacemaker if she has recurrent bradycardia arrhythmias. Please call if needed over the weekend
--- NOTE | 2023-07-18 10:52 | XR_ITS ---
FINAL REPORT TECHNIQUE: Chest PA & Lateral CLINICAL HISTORY: exacerbation COPD COMPARISON: 03/08/2022 FINDINGS: 2 views of the chest were performed. The heart size is mildly enlarged. The mediastinum is within normal limits. There is no acute cardiopulmonary process. There are new small to moderate bilateral pleural effusions. There is no pneumothorax. The bony thorax appears intact. IMPRESSION: New bilateral pleural effusions. Reviewed, Interpreted and Dictated by Ricardo Gonzalez MD Transcribed by Balbina Priest Authenticated and [facility]
--- NOTE | 2023-07-18 10:59 | SW/DCPLANNER ---
Addendum entered by Peri Bansal 07/22/23 07:45: Wendy w/ [facility] stated that home health services will begin this week for this patient. Original Note: I spoke w/ patient and her son regarding home health services at time of discharge. PT/OT evaluated patient and recommended returning home w/ home health. [facility] information/order will be faxed to [facility] once medically stable for discharge. Discharge date is unknown at this time.
--- NOTE | 2023-07-18 11:53 | PC.NURSE ---
Pt. pulled out iv and i tried to get an iv in the right arm. Charge aware and house to try and place iv with US.
--- NOTE | 2023-07-18 12:03 | PC.NURSE ---
SRNA NOTE: Hitesh notified of low O2 sat @1200 vitals. pt is refusing to wear her oxygen. Enmanuel EMERSON.
[2023-07-18] MEDS: DICYCLOMINE 20 MG 1 EACH PO (12:39)
[2023-07-18] MEDS: FUROSEMIDE 40MG/4ML VIAL 40 MG IV (14:46)
--- NOTE | 2023-07-18 15:52 | PC.NURSE ---
primary tech note: nurse notified about patient's 1600 BP and O2 sat. pt put on 2L NC. rechecked O2 sat and it was 98%.
[2023-07-18] MEDS: NICOTINE 21MG/24HR PATCH 21 MG TD (17:11)
--- NOTE | 2023-07-18 17:50 | PC.NURSE ---
patient is alert and oriented x4, denies pain at time of assessment, no complaints. will continue to monitor.
[2023-07-18] MEDS: GABAPENTIN 100MG CAPSULE 100 MG PO (20:55)
[2023-07-18] MEDS: SPIRONOLACTONE 25MG TABLET 25 MG PO (20:56)
[2023-07-18] MEDS: PANTOPRAZOLE 40MG TABLET 40 MG PO (20:56)
[2023-07-18] MEDS: BUSPIRONE HCL 10 MG TABLET PO (20:56)
[2023-07-18] MEDS: ATORVASTATIN 10MG TABLET 10 MG PO (20:56)
[2023-07-18] MEDS: dilTIAZem HCL 180MG CAP.ER.24H 180 MG PO (20:57)
[2023-07-18] MEDS: DICYCLOMINE 10MG CAPSULE 20 MG PO (21:02)
[2023-07-19] VITALS (10 sets, daily range): BP systolic 121–143; BP diastolic 52–72; PULSE 40–81; RESP 16–20; TEMP 36.3–36.8; O2SAT 90–97; BMI 16.5
[2023-07-19] MEDS: DICYCLOMINE 10MG CAPSULE 20 MG PO ×3 (06:56→16:57)
[2023-07-19] MEDS: DIGOXIN 0.125MG TABLET 125 MCG PO (09:11)
[2023-07-19] MEDS: SPIRONOLACTONE 25MG TABLET 25 MG PO ×2 (09:11→21:23)
[2023-07-19] MEDS: FUROSEMIDE 20MG TABLET 20 MG PO (09:11)
[2023-07-19] MEDS: METOPROLOL SUCCINATE XL 50MG TABLET 50 MG PO (09:11)
[2023-07-19] MEDS: NICOTINE 21MG/24HR PATCH 21 MG TD (09:12)
[2023-07-19] MEDS: BUSPIRONE HCL 10 MG TABLET PO ×3 (09:12→21:12)
[2023-07-19] MEDS: POTASSIUM CHLORIDE 10MEQ CAPSULE.ER 10 MEQ PO (09:12)
[2023-07-19] MEDS: POTASSIUM CHLORIDE 20MEQ/15ML UDC 10 MEQ PO (09:29)
--- NOTE | 2023-07-19 10:33 | P.PN_ITS ---
Subjective *Date: 07/19/23 *Time: 10:33 Interval history: Clinically she appears about at her baseline. She slept better last night. She is not short of breath. Cardiology, however, feels that she warrants watching through the weekend for evidence of dysrhythmia and for further diuresis. The chest x-ray from yesterday showed significant bilateral pleural effusions. Her weight is unchanged. She has a bit less leg edema today. Her periorbital hematoma is improving. Medical Exam Vital signs and Labs for Last 24 Hours: Vital Signs Temp Pulse Pulse Resp BP Pulse Ox O2 Del Method 07/19/23 08:00 60 07/19/23 09:00 Nasal Cannula 07/19/23 08:00 Nasal Cannula 07/19/23 09:11 81 07/19/23 07:49 97.9 F 81 18 132/52 L 97 Nasal Cannula 07/19/23 07:00 Nasal Cannula 07/19/23 05:00 Nasal Cannula 07/19/23 03:00 Nasal Cannula 07/19/23 01:00 Nasal Cannula 07/18/23 23:00 Nasal Cannula 07/19/23 04:00 98.2 F 79 16 126/70 90 L Nasal Cannula 07/19/23 04:00 62 07/19/23 00:00 98 F 77 18 130/72 97 Nasal Cannula 07/19/23 00:00 68 07/18/23 21:00 Nasal Cannula 07/18/23 20:00 Nasal Cannula 07/18/23 20:00 69 07/18/23 20:00 98 F 68 18 145/77 H 98 Nasal Cannula 07/18/23 18:58 Nasal Cannula 07/18/23 16:00 80 07/18/23 17:21 Nasal Cannula 07/18/23 15:56 98 Nasal Cannula 07/18/23 15:50 97.8 F 58 L 18 162/82 H 88 L Room Air 07/18/23 13:53 Nasal Cannula 07/18/23 12:00 70 07/18/23 12:16 Nasal Cannula 07/18/23 12:00 97.7 F 77 18 128/54 L 88 L Room Air O2 Flow Rate 07/19/23 08:00 07/19/23 09:00 2 07/19/23 08:00 2 07/19/23 09:11 07/19/23 07:49 2 07/19/23 07:00 2 07/19/23 05:00 2 07/19/23 03:00 2 07/19/23 01:00 2 07/18/23 23:00 2 07/19/23 04:00 07/19/23 04:00 07/19/23 00:00 07/19/23 00:00 07/18/23 21:00 07/18/23 20:00 2 07/18/23 20:00 07/18/23 20:00 07/18/23 18:58 2 07/18/23 16:00 07/18/23 17:21 07/18/23 15:56 2 07/18/23 15:50 07/18/23 13:53 2 07/18/23 12:00 07/18/23 12:16 2 07/18/23 12:00 Intake and Output 07/18/23 07/19/23 07/19/23 19:59 03:59 11:59 Intake Total 720 / 1080 120 / 1080 240 / 1080 Output Total 0 / 0 0 / 0 0 / 0 Balance 720 / 1080 120 / 1080 240 / 1080 Intake: Intake, Oral Amount 720 / 1080 120 / 1080 240 / 1080 Output: Output, Urine Amount 0 / 0 0 / 0 0 / 0 Other: Number of Unmeasured Voids 3 1 1 Number of Bowel Movements 3 Weight 99 lb 3.328 oz Patient Weight 07/19/23 11:59 Weight 99 lb 3.328 oz I & O for Labs for Last 24 Hours: Intake & Output 07/16/23 07/17/23 07/18/23 07/19/23 11:59 11:59 11:59 11:59 Intake Total 720 / 720 1080 / 1080 Output Total 0 / 0 0 / 0 Balance 720 / 720 1080 / 1080 Weight 110 lb 99 lb 3.328 oz 99 lb 3.328 oz Head: Present normocephalic Eyes: Present other (Left periorbital ecchymosis resolving. She is able to open both eyes.) Neck: Present normal inspection and full ROM Respiratory: Present decreased breath sounds (Especially at the bases. Decreased more on the right than the left.) Cardiac: Present Irregularly Regular (Heart rate 60) GI: Present soft; Absent distention, tenderness or guarding Rectal (female): Present deferred (female): Present deferred Extremities: Present edema (1-2+. Improved from yesterday.) Skin: Present intact Neuro: Present alert, awake, oriented x 3 and moves all extremities Assessment and Plan *Assessment and plan (1) COPD exacerbation: Status: Acute Category: Medical Code(s): J44.1 - Chronic obstructive pulmonary disease with (acute) exacerbation (2) Acute hypoxemic respiratory failure: Status: Acute Category: Medical Code(s): J96.01 - Acute respiratory failure with hypoxia (3) Atrial fibrillation: Status: Chronic Qualifiers: Atrial fibrillation type: unspecified chronic Qualified Code(s): I48.20 - Chronic atrial fibrillation, unspecified Category: Medical Code(s): I48.91 - Unspecified atrial fibrillation (4) Fall at home: Status: Acute Qualifiers: Encounter type: initial encounter Qualified Code(s): W19.XXXA - Unspecified fall, initial encounter; Y92.009 - Unspecified place in unspecified non-institutional (private) residence as the place of occurrence of the external cause Category: Medical Code(s): W19.XXXA - Unspecified fall, initial encounter; Y92.009 - Unspecified place in unspecified non-institutional (private) residence as the place of occurrence of the external cause (5) Periorbital ecchymosis of left eye: Status: Acute Qualifiers: Encounter type: initial encounter Qualified Code(s): S00.12XA - Contusion of left eyelid and periocular area, initial encounter Category: Medical Code(s): S00.12XA - Contusion of left eyelid and periocular area, initial encounter (6) Bilateral pleural effusion: Status: Acute Category: Medical Code(s): J90 - Pleural effusion, not elsewhere classified (7) Tobacco use disorder, moderate, dependence: Status: Chronic Category: Medical Code(s): F17.200 - Nicotine dependence, unspecified, uncomplicated (8) Anxiety: Status: Acute Category: Medical Code(s): F41.9 - Anxiety disorder, unspecified (9) Ischemic bowel disease: Status: Acute Category: Medical Code(s): K55.9 - Vascular disorder of intestine, unspecified (10) Presence of Watchman left atrial appendage closure device: Status: Chronic Category: Medical Code(s): Z95.818 - Presence of other cardiac implants and grafts (11) HOCM (hypertrophic obstructive cardiomyopathy): Status: Chronic Category: Medical Code(s): I42.1 - Obstructive hypertrophic cardiomyopathy (12) Pulmonary HTN: Status: Chronic Category: Medical Code(s): I27.20 - Pulmonary hypertension, unspecified (13) Arteriosclerotic cardiovascular disease: Status: Chronic Category: Medical Code(s): I25.10 - Atherosclerotic heart disease of [place] coronary artery without angina pectoris Plan Orders reviewed. Continue cardiac nurse specialist. Continue diuresis. Labs ordered. Cardiology has requested pulmonary consultation. This would not occur until Friday.
[2023-07-19 11:13] LABS: Basophils % 0.4 % (0.1-2.0); Eosinophils % 0.2 % (0.1-12.0); Hemoglobin 11.6 g/dL (12.2-16.2); Lymphocytes # 1.1 K/mm3 (0.7-4.5); Lymphocytes % 11.8 % (10-50); Mean Corpuscular Hemoglobin 21.8 pg (27.0-31.2); Mean Corpuscular Volume 75.2 fl (81-99); Mean Platelet Volume 9.1 fl (7.4-10.4); Monocytes # 1.1 K/mm3 (0.1-1.0); Monocytes % 12.6 % (1.7-9.3); Neutrophils # 6.7 K/mm3 (1.8-7.8); Platelet Count 235 K/mm3 (142-424); Red Blood Count 5.32 M/mm3 (4.20-5.40); Red Cell Distribution Width 17.6 % (11.5-17.5)
[2023-07-19 11:19] LABS: Chloride 94 mmol/L (98-107); Potassium 3.4 mmoL/L (3.5-5.1); Sodium 138 mmol/L (136-145)
[2023-07-19 11:21] LABS: Blood Urea Nitrogen 20 mg/dl (7-17); Creatinine Clearance Estimated 31 mL/min (50-200); Estimated Glomerular Filt Rate 69 ml/min (>60); GFR (African American) 83 ML/MIN (>60)
[2023-07-19 11:22] LABS: Alanine Aminotransferase 31 U/L (12-78); Albumin Level 3.6 g/dl (3.5-5.0); Albumin/Globulin Ratio 1.3 (1.1-1.8); Alkaline Phosphatase 170 U/L (38-126); Aspartate Amino Transferase 26 U/L (14-36); Bilirubin,Total 0.6 mg/dl (0.2-1.3); Calcium 8.3 mg/dl (8.4-10.2); Globulin 2.7 g/dL (1.3-3.2); Glucose 111 mg/dl (74-100); Total Protein,Serum 6.3 g/dl (6.3-8.2)
[2023-07-19 11:39] LABS: Anion Gap 6.4 mEq/L (5-15); Carbon Dioxide 41 mmol/L (22.0-30.0)
--- NOTE | 2023-07-19 11:45 | PC.NURSE ---
Courtesy Deepa Rounded on patient .Assisted patient to bathroom and emptied trash. Patient voiced no other needs at this time. Call luther within reach.
--- NOTE | 2023-07-19 15:39 | PC.NURSE ---
Addendum entered by J Luis Pandya RN 07/19/23 17:24: PT WILL ONLY TAKE 10 MG OF ORDERED 20 MG BENTYL DOSE STATING THAT SHE ONLY TAKES 10 MG AT HOME. Original Note: AOX4, SPENT A COUPLE OF HOURS SITTING UP TO CHAIR FOR MEALS. X1 ASSIST WITH AMBULATION. SWELLING TO ORBITAL HAS IMPROVED THROUGHOUT THE DAY. AFIB/BRADYCARDIA ON TELEMETRY DR PAGAN ORDERED DIGOXIN LEVEL THIS MORNING. PATIENT DENIES CHEST PAIN AND SOB. WOUND CONSULT TODAY. 2LNC FOR O2 SUPPORT. PT REQUEST PRN BENTYL WITH MEALS FOR ABD DISCOMFORT.
--- NOTE | 2023-07-19 16:10 | HMH.PTWOUND ---
Rehab Inpt Wound Evaluation Rehab IP Wound Evaluation Start: 07/18/23 20:54 Freq: ONCE Status: Active Protocol: Document 07/19/23 16:04 KATLIN (Rec: 07/19/23 16:10 KATLIN [id number]) Rehab PT Wound Assessment Patient Status Premedicated Prior to Dressing Change Yes Subjective Subjective Patient reports sacral pressure wound that she has been dealing with for approx 3 -4 months. Wound Sacrum Wound Type Pressure Ulcer Is This a Chronic Wound Yes Wound Staging Stage II Query Text:Stage I - Unbroken, red skin, no blanching. Stage II - Skin broken, superficial skin loss involving epidermis alone or also dermis. Partial loss of skin layers. Stage III - Pressure area involves epidermis, dermis and subcutaneous tissue, full thickness skin loss. Stage IV - Pressure area involves epidermis, subcutaneous tissue, bone and other supportive tissue. Full thickness skin loss with extensive destruction of underlying tissue and structures. Superficial wound not involving tendon, w/o infection/ischemia capsule or bone Wound Length (cm) 2 Wound Width (cm) 0.1 Wound Bed Appearance Forsan Surrounding Tissue Appearance Forsan Edema Type Non-Pitting Surrounding Tissue Temperature Warm Drainage Amount None Drainage Odor No Odor Dressing Status Dry & Intact Primary Dressing Adhesive Dressing Dressing Change Date 07/19/23 Plan/Recommendation Comment PT suggests nursing to continue with current wound dressing and monitor/adjust positioning. Eval Complexity Eval Charge Codes 94855 - Moderate Complexity PHYSICIAN CERTIFICATION: I certify the specified therapy services for Suri Banks are required, authorized, and reviewed every 30 days.
[2023-07-19] MEDS: GABAPENTIN 100MG CAPSULE 100 MG PO (21:12)
[2023-07-19] MEDS: PANTOPRAZOLE 40MG TABLET 40 MG PO (21:21)
[2023-07-19] MEDS: ATORVASTATIN 10MG TABLET 10 MG PO (21:22)
[2023-07-20] VITALS (8 sets, daily range): BP systolic 134–147; BP diastolic 47–93; PULSE 57–90; RESP 16–20; TEMP 36.4–38; O2SAT 90–99; BMI 16.8
[2023-07-20] MEDS: DICYCLOMINE 10MG CAPSULE 20 MG PO ×3 (07:18→16:51)
[2023-07-20] MEDS: BUSPIRONE HCL 10 MG TABLET PO ×3 (09:26→20:54)
[2023-07-20] MEDS: POTASSIUM CHLORIDE 20MEQ/15ML UDC 10 MEQ PO (09:26)
[2023-07-20] MEDS: NICOTINE 21MG/24HR PATCH 21 MG TD (09:27)
[2023-07-20] MEDS: SPIRONOLACTONE 25MG TABLET 25 MG PO ×2 (09:27→20:56)
[2023-07-20] MEDS: FUROSEMIDE 20MG TABLET 20 MG PO (09:27)
[2023-07-20] MEDS: DIGOXIN 0.125MG TABLET 125 MCG PO (09:31)
[2023-07-20] MEDS: METOPROLOL SUCCINATE XL 50MG TABLET 50 MG PO (09:31)
--- NOTE | 2023-07-20 12:56 | XR_ITS ---
PROCEDURE INFORMATION: Exam: XR Chest Exam date and time: 07/20/2023 3:19 PM Age: 83 years old Clinical indication: Other: Pl eff; Additional info: Pleural effusions TECHNIQUE: Imaging protocol: Radiologic exam of the chest. Views: 2 views. COMPARISON: CR XR CHEST 2V 07/18/2023 11:24 AM FINDINGS: Lungs: Biapical parenchymal scarring. Pleural spaces: Similar appearing small right and [id number] left pleural effusions. No pneumothorax. Heart/Mediastinum: Cardiomegaly. Bones/joints: Unremarkable. IMPRESSION: Similar appearing small right and [id number] left pleural effusions.
--- NOTE | 2023-07-20 13:09 | EXP.ACUTE.PN ---
Subjective *Date: 07/20/23 *Time: 13:09 Interval history: Her son states that she is getting better each day. She states that she was able to sleep last night. She is not short of breath. Her periorbital area is much improved. Her weight is up at 101. Medical Exam Vital signs and Labs for Last 24 Hours: Vital Signs Temp Pulse Pulse Resp BP Pulse Ox O2 Del Method 07/20/23 12:00 97.8 F 73 18 134/47 L 95 Nasal Cannula 07/20/23 08:00 Nasal Cannula 07/20/23 09:00 Nasal Cannula 07/20/23 07:00 Nasal Cannula 07/20/23 09:31 79 07/20/23 08:00 80 07/20/23 07:41 97.8 F 90 18 144/72 H 96 Nasal Cannula 07/20/23 04:00 82 07/20/23 05:00 Nasal Cannula 07/20/23 04:00 97.8 F 78 18 138/93 H 90 L Nasal Cannula 07/20/23 03:00 Nasal Cannula 07/20/23 01:00 Nasal Cannula 07/20/23 00:00 62 07/20/23 00:00 97.6 F 69 20 147/68 H 95 Nasal Cannula 07/19/23 23:00 Nasal Cannula 07/19/23 21:00 Nasal Cannula 07/19/23 21:00 Nasal Cannula 07/19/23 20:00 61 07/19/23 20:00 98.2 F 57 L 20 140/56 L 95 Nasal Cannula 07/19/23 18:41 Nasal Cannula 07/19/23 17:00 Nasal Cannula 07/19/23 15:00 Nasal Cannula 07/19/23 16:00 40 L 07/19/23 15:54 98.2 F 66 18 143/52 H 96 Nasal Cannula O2 Flow Rate 07/20/23 12:00 2 07/20/23 08:00 2 07/20/23 09:00 2 07/20/23 07:00 2 07/20/23 09:31 07/20/23 08:00 07/20/23 07:41 2 07/20/23 04:00 07/20/23 05:00 2 07/20/23 04:00 07/20/23 03:00 2 07/20/23 01:00 2 07/20/23 00:00 07/20/23 00:00 2 07/19/23 23:00 2 07/19/23 21:00 2 07/19/23 21:00 2 07/19/23 20:00 07/19/23 20:00 2 07/19/23 18:41 2 07/19/23 17:00 2 07/19/23 15:00 2 07/19/23 16:00 07/19/23 15:54 2 Intake and Output 07/20/23 07/20/23 07/20/23 03:59 11:59 19:59 Intake Total 300 / 700 Output Total 0 / 0 0 / 0 0 / 0 Balance 0 / 700 300 / 700 0 / 0 Intake: Intake, Oral Amount 300 / 700 Output: Output, Urine Amount 0 / 0 0 / 0 0 / 0 Other: Number of Unmeasured Voids 1 1 1 Number of Bowel Movements 1 Weight 101 lb I & O for Labs for Last 24 Hours: Intake & Output 07/18/23 07/19/23 07/20/23 07/21/23 11:59 11:59 11:59 11:59 Intake Total 720 / 720 1080 / 1080 700 / 700 Output Total 0 / 0 0 / 0 0 / 0 0 / 0 Balance 720 / 720 1080 / 1080 700 / 700 0 / 0 Weight 99 lb 3.328 oz 99 lb 3.328 oz 101 lb Eyes: Present other (Edema and ecchymoses is improved. She is able to open her eye completely. EOMs with normal range of motion) Neck: Present normal inspection Respiratory: Present decreased breath sounds (Especially at bases bilaterally); Absent respiratory distress or stridor Cardiac: Present Irregularly Regular GI: Present soft; Absent distention or tenderness Rectal (female): Present deferred (female): Present deferred Extremities: Present edema (She has a little more edema on the right than on the left. It is not worse.) Skin: Present intact (See report on sacral lesion.) Neuro: Present alert, awake and oriented x 3 Assessment and Plan *Assessment and plan (1) COPD exacerbation: Status: Acute Category: Medical Code(s): J44.1 - Chronic obstructive pulmonary disease with (acute) exacerbation (2) Acute hypoxemic respiratory failure: Status: Acute Category: Medical Code(s): J96.01 - Acute respiratory failure with hypoxia (3) Bilateral pleural effusion: Status: Acute Category: Medical Code(s): J90 - Pleural effusion, not elsewhere classified (4) Fall at home: Status: Acute Qualifiers: Encounter type: initial encounter Qualified Code(s): W19.XXXA - Unspecified fall, initial encounter; Y92.009 - Unspecified place in unspecified non-institutional (private) residence as the place of occurrence of the external cause Category: Medical Code(s): W19.XXXA - Unspecified fall, initial encounter; Y92.009 - Unspecified place in unspecified non-institutional (private) residence as the place of occurrence of the external cause (5) Atrial fibrillation: Status: Chronic Qualifiers: Atrial fibrillation type: unspecified chronic Qualified Code(s): I48.20 - Chronic atrial fibrillation, unspecified Category: Medical Code(s): I48.91 - Unspecified atrial fibrillation (6) Tobacco use disorder, moderate, dependence: Status: Chronic Category: Medical Code(s): F17.200 - Nicotine dependence, unspecified, uncomplicated (7) Periorbital ecchymosis of left eye: Status: Acute Qualifiers: Encounter type: initial encounter Qualified Code(s): S00.12XA - Contusion of left eyelid and periocular area, initial encounter Category: Medical Code(s): S00.12XA - Contusion of left eyelid and periocular area, initial encounter (8) Presence of Watchman left atrial appendage closure device: Status: Chronic Category: Medical Code(s): Z95.818 - Presence of other cardiac implants and grafts (9) Arteriosclerotic cardiovascular disease: Status: Chronic Category: Medical Code(s): I25.10 - Atherosclerotic heart disease of [place] coronary artery without angina pectoris (10) Hypokalemia: Status: Acute Category: Medical Code(s): E87.6 - Hypokalemia Plan P.o. potassium dose was increased due to 3.4 potassium Digoxin level just slightly above normal. DC digoxin. Check level in the morning. Pulmonary consult in the morning. Recheck chest x-ray today to determine status of pleural effusions.
[2023-07-20] MEDS: ATORVASTATIN 10MG TABLET 10 MG PO (20:54)
[2023-07-20] MEDS: PANTOPRAZOLE 40MG TABLET 40 MG PO (20:55)
[2023-07-20] MEDS: GABAPENTIN 100MG CAPSULE 100 MG PO (20:55)
[2023-07-20] MEDS: dilTIAZem HCL 180MG CAP.ER.24H 180 MG PO (20:55)
[2023-07-21] VITALS: BP 144/67; PULSE 70; PULSE 83; RESP 17; TEMP 37.2; O2SAT 95
[2023-07-21 04:00] VITALS: BP 125/66; PULSE 39; PULSE 71; RESP 16; TEMP 37.2; O2SAT 90; BMI 17.1
[2023-07-21] MEDS: DICYCLOMINE 10MG CAPSULE 20 MG PO ×2 (07:28→12:05)
[2023-07-21 07:32] LABS: Chloride 100 mmol/L (98-107); Potassium 4.3 mmoL/L (3.5-5.1); Sodium 140 mmol/L (136-145)
[2023-07-21 07:35] LABS: Anion Gap 6.3 mEq/L (5-15); Blood Urea Nitrogen 19 mg/dl (7-17); Calcium 8.3 mg/dl (8.4-10.2); Carbon Dioxide 38 mmol/L (22.0-30.0); Creatinine Clearance Estimated 32 mL/min (50-200); Estimated Glomerular Filt Rate 69 ml/min (>60); GFR (African American) 83 ML/MIN (>60); Glucose 97 mg/dl (74-100)
[2023-07-21 07:44] VITALS: BP 150/79; PULSE 89; RESP 20; O2SAT 95
--- NOTE | 2023-07-21 07:59 | P.PN_ITS ---
Subjective *Date: 07/21/23 *Time: 08:15 Interval history: Patient states she is feeling well and wanting to go home today. Waiting on cardiology to visit. She is sleeping some. She is eating well. She is voiding QS. She denies any chest pain and shortness of breath even with activity. Chest x-ray yesterday did not show any improvement. Today's blood chemistries showed normal sodium at 140 with a potassium of 4.3. BUN is 19 with a creatinine of 0.8.O2 sats are 95% on oxygen at 2 L/min. Weight is 102 pounds this a.m. She states she is voiding large amounts frequently. Urinalysis did show positive nitrates with 2+ bacteria. Urine cultures are pending. Digoxin level is pending. Renal function is stable. Medical Exam Vital signs and Labs for Last 24 Hours: Vital Signs Temp Pulse Pulse Resp BP Pulse Ox O2 Del Method 07/21/23 07:44 89 20 150/79 H 95 Nasal Cannula 07/21/23 07:44 Nasal Cannula 07/21/23 07:42 Nasal Cannula 07/21/23 07:00 Nasal Cannula 07/21/23 05:00 Nasal Cannula 07/21/23 04:00 39 L 07/21/23 04:00 98.9 F 71 16 125/66 90 L Nasal Cannula 07/21/23 03:00 Nasal Cannula 07/21/23 00:00 83 07/21/23 01:00 Nasal Cannula 07/21/23 00:00 99.0 F 70 17 144/67 H 95 Nasal Cannula 07/20/23 23:00 Nasal Cannula 07/20/23 21:00 Nasal Cannula 07/20/23 20:00 64 07/20/23 21:00 Nasal Cannula 07/20/23 20:00 99.2 F 63 17 146/65 H 98 Nasal Cannula 07/20/23 18:40 Nasal Cannula 07/20/23 16:00 70 07/20/23 16:00 99 F 07/20/23 17:00 Nasal Cannula 07/20/23 15:00 Nasal Cannula 07/20/23 16:00 100.4 F H 70 16 136/54 L 99 Nasal Cannula 07/20/23 13:00 Nasal Cannula 07/20/23 11:00 Nasal Cannula 07/20/23 12:00 57 L 07/20/23 12:00 97.8 F 73 18 134/47 L 95 Nasal Cannula 07/20/23 08:00 Nasal Cannula 07/20/23 09:00 Nasal Cannula 07/20/23 09:31 79 07/20/23 08:00 80 O2 Flow Rate 07/21/23 07:44 2 07/21/23 07:44 07/21/23 07:42 2 07/21/23 07:00 2 07/21/23 05:00 2 07/21/23 04:00 07/21/23 04:00 2 07/21/23 03:00 2 07/21/23 00:00 07/21/23 01:00 2 07/21/23 00:00 2 07/20/23 23:00 2 07/20/23 21:00 2 07/20/23 20:00 07/20/23 21:00 2 07/20/23 20:00 2 07/20/23 18:40 2 07/20/23 16:00 07/20/23 16:00 07/20/23 17:00 2 07/20/23 15:00 2 07/20/23 16:00 2 07/20/23 13:00 2 07/20/23 11:00 2 07/20/23 12:00 07/20/23 12:00 2 07/20/23 08:00 2 07/20/23 09:00 2 07/20/23 09:31 07/20/23 08:00 Intake and Output 07/20/23 07/21/23 07/21/23 19:59 03:59 11:59 Intake Total 370 / 370 470 / 840 Output Total 0 / 0 0 / 0 0 / 0 Balance 370 / 370 0 / 370 470 / 840 Intake: Intake, Oral Amount 370 / 370 470 / 840 Output: Output, Urine Amount 0 / 0 0 / 0 0 / 0 Other: Number of Unmeasured Voids 1 1 1 Number of Bowel Movements 2 Weight 102 lb 13.636 oz Patient Weight 07/21/23 11:59 Weight 102 lb 13.636 oz Laboratory Results - last 24 hr 07/21/23 06:59: Sodium 140, Potassium 4.3 D, Chloride 100, Carbon Dioxide 38 H, Anion Gap 6.3, BUN 19 H, Creatinine 0.80, Estimated Creat Clear 32, Estimated GFR 69, Est GFR ( Amer) 83, Glucose 97, Calcium 8.3 L I & O for Labs for Last 24 Hours: Intake & Output 07/18/23 07/19/23 07/20/23 07/21/23 11:59 11:59 11:59 11:59 Intake Total 720 / 720 1080 / 1080 700 / 700 840 / 840 Output Total 0 / 0 0 / 0 0 / 0 0 / 0 Balance 720 / 720 1080 / 1080 700 / 700 840 / 840 Weight 99 lb 3.328 oz 99 lb 3.328 oz 101 lb 102 lb 13.636 oz Constitutional: Present no acute distress Comment:: Sitting up in bedside chair eating her breakfast and is eating well. Eyes: Present other (Left periorbital ecchymosis is fading) Respiratory: Present decreased breath sounds (Bilateral bases posteriorly) Cardiac: Present Reg Rate and Rhythm (Monitor showing atrial fibs with a controlled ventricular response) GI: Present soft; Absent distention or tenderness Extremities: Present full ROM; Absent edema or calf tenderness Neuro: Present Grossly Intact, alert, oriented x 3 and moves all extremities Assessment and Plan *Assessment and plan (1) COPD exacerbation: Status: Acute Category: Medical Code(s): J44.1 - Chronic obstructive pulmonary disease with (acute) exacerbation (2) Acute hypoxemic respiratory failure: Status: Acute Category: Medical Code(s): J96.01 - Acute respiratory failure with hypoxia (3) Bilateral pleural effusion: Status: Acute Category: Medical Code(s): J90 - Pleural effusion, not elsewhere classified (4) Fall at home: Status: Acute Qualifiers: Encounter type: initial encounter Qualified Code(s): W19.XXXA - Unspecified fall, initial encounter; Y92.009 - Unspecified place in unspecified non-institutional (private) residence as the place of occurrence of the external cause Category: Medical Code(s): W19.XXXA - Unspecified fall, initial encounter; Y92.009 - Unspecified place in unspecified non-institutional (private) residence as the place of occurrence of the external cause (5) Atrial fibrillation: Status: Chronic Qualifiers: Atrial fibrillation type: unspecified chronic Qualified Code(s): I48.20 - Chronic atrial fibrillation, unspecified Category: Medical Code(s): I48.91 - Unspecified atrial fibrillation (6) Tobacco use disorder, moderate, dependence: Status: Chronic Category: Medical Code(s): F17.200 - Nicotine dependence, unspecified, uncomplicated (7) Periorbital ecchymosis of left eye: Status: Acute Qualifiers: Encounter type: initial encounter Qualified Code(s): S00.12XA - Contus ion of left eyelid and periocular area, initial encounter Category: Medical Code(s): S00.12XA - Contusion of left eyelid and periocular area, initial encounter (8) Presence of Watchman left atrial appendage closure device: Status: Chronic Category: Medical Code(s): Z95.818 - Presence of other cardiac implants and grafts (9) Arteriosclerotic cardiovascular disease: Status: Chronic Category: Medical Code(s): I25.10 - Atherosclerotic heart disease of [place] coronary artery without angina pectoris (10) Hypokalemia: Status: Acute Category: Medical Code(s): E87.6 - Hypokalemia (11) Urinary tract infection in female: Status: Acute Category: Medical Code(s): N39.0 - Urinary tract infection, site not specified Plan Cardiology and pulmonology to follow. Discussed at length smoking cessation. Potassium is normal today. Will get dose of Levaquin due to be for allergies cannot take Macrobid. Probably home today.
[2023-07-21 08:00] VITALS: PULSE 83
[2023-07-21] MEDS: NICOTINE 21MG/24HR PATCH 21 MG TD (08:36)
[2023-07-21] MEDS: BUSPIRONE HCL 10 MG TABLET PO ×2 (08:36→12:05)
[2023-07-21] MEDS: SPIRONOLACTONE 25MG TABLET 25 MG PO (08:36)
[2023-07-21] MEDS: FUROSEMIDE 20MG TABLET 20 MG PO (08:36)
[2023-07-21] MEDS: METOPROLOL SUCCINATE XL 50MG TABLET 50 MG PO (08:36)
[2023-07-21] MEDS: POTASSIUM CHLORIDE 20MEQ/15ML UDC 10 MEQ PO (08:36)
--- NOTE | 2023-07-21 09:45 | EXP.PULM.CON ---
History of Present Illness History of present illness: Ms. Banks is a 83-year-old female current smoker greater than 30 PPD history of COPD presented with fall and found to continue oxygen requirements and pulmonary was called for further evaluation and management [facility] Disclaimer: The information contained in this section may have been updated after the patient was seen, as this information can be updated by other users. 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 Atrial fibrillation with RVR Bilateral carotid artery stenosis CAD (coronary artery disease) Carotid artery stenosis COPD exacerbation COPD mixed type Diastolic dysfunction Elevated troponin Gastroesophageal reflux disease HOCM (hypertrophic obstructive cardiomyopathy) Hyperlipidemia Hypertension Hypokalemia Ischemic bowel disease half-way current use of anticoagulant NSTEMI (non-ST elevated myocardial infarction) Paroxysmal atrial fibrillation Pleural effusion Presence of Watchman left atrial appendage closure device Pulmonary HTN Rapid atrial fibrillation Subclavian artery stenosis, right Syncope TIA (transient ischemic attack) Tobacco abuse Surgical History (Updated 07/17/23 @ 16:41 by CATHLEEN Crabtree) History of appendectomy History of cholecystectomy History of colonoscopy History of hysterectomy History of right heart catheterization (RHC) Status post carotid endarterectomy Family History Diabetes Coronary artery disease Family history of diabetes mellitus type II Family history of myocardial infarction Cancer Hypertension Stroke Social History Smoking Status: Current every day smoker tobacco type: cigarettes packs per day: 1 alcohol intake: never substance use type: denies use current occupational status: retired Travel in the last 8 weeks: None household members: none housing: house lives independently: Yes marital status: single education level: middle school service: No caffeine: No special fanny needs: No agree to transfusion: No do you feel safe at home: Yes victim of physical abuse: No victim of emotional abuse: No victim of sexual abuse: No would you like helpful sources: No Review of Systems Constitutional Constitutional: Reports fatigue, Reports headache(s) and Reports weakness Eyes Eyes: Denies eye discharge, Denies dry eyes, Denies irritation and Denies itchy eyes ENT Ears, Nose, Mouth, and Throat: Reports headache(s), Denies lip swelling, Denies throat swelling and Denies vertigo *Cardiovascular Cardiovascular: Reports dyspnea, Reports dyspnea on exertion, Reports leg edema and Reports orthopnea *Respiratory Respiratory: Reports chest congestion, Reports cough, Reports dyspnea, Reports dyspnea on exertion, Denies excessive phlegm production, Denies hemoptysis, Denies pain on inspiration, Denies pain with cough and Denies wheezing *Gastrointestinal Gastrointestinal: Denies abdominal pain, Denies belching and Denies cramping *Musculoskeletal Musculoskeletal: Reports back pain, Reports myalgias and Reports other (No small joint swelling or Pain) *Neurologic Neurologic: Reports headache(s), Denies vertigo and Reports weakness Psychiatric Psychiatric: Denies homicidal ideation and Denies suicidal ideation Endocrine Endocrine: Reports fatigue and Denies heat intolerance Hematologic/Lymphatic Hematologic/Lymphatic: Denies easy bleeding and Denies lymphadenopathy Allergic/Immunologic Allergic/Immunologic: Denies itchy eyes, Denies lip swelling, Denies throat swelling and Denies wheezing Pulmonology Exam Inpatient Vital signs and Labs for Last 24 Hours: Temp Pulse Resp BP Pulse Ox O2 Del Method O2 Flow Rate 98.9 F 83 20 150/79 H 95 Nasal Cannula 2 07/21/23 04:00 07/21/23 08:00 07/21/23 07:44 07/21/23 07:44 07/21/23 07:44 07/21/23 07:44 07/21/23 07:44 Laboratory Results - last 24 hr 07/21/23 06:59: Sodium 140, Potassium 4.3 D, Chloride 100, Carbon Dioxide 38 H, Anion Gap 6.3, BUN 19 H, Creatinine 0.80, Estimated Creat Clear 32, Estimated GFR 69, Est GFR ( Amer) 83, Glucose 97, Calcium 8.3 L I & O for Labs for Last 24 Hours: Intake & Output 07/18/23 07/19/23 07/20/23 07/21/23 23:59 23:59 23:59 23:59 Intake Total 1320 / 1320 640 / 640 670 / 670 470 / 470 Output Total 0 / 0 0 / 0 0 / 0 0 / 0 Balance 1320 / 1320 640 / 640 670 / 670 470 / 470 Weight 99 lb 3.328 oz 99 lb 3.328 oz 101 lb 102 lb 13.636 oz Constitutional: Present moderate distress Head: Present normocephalic and atraumatic ENT: Present normal exam, normal oropharynx and mucous membranes moist Neck: Present normal inspection and full ROM Respiratory: Present respiratory distress and able to speak in complete sentences; Absent wheezes or diminished air movement Cardiac: Present S1/S2, Tachycardia and radial pulses present GI: Present soft and distention; Absent tenderness or guarding Rectal (female): Present deferred (female): Present deferred Skin: Present intact; Absent cyanosis or jaundice Neuro: Present alert, awake and oriented x 3 Extremities: Present normal inspection; Absent clubbing or cyanosis Psychiatric: Present normal affect and cooperative Meds Home Medications and Allergies Home Medications Medication Instructions Recorded Confirmed Type gabapentin 100 mg capsule 100 mg PO HS NEUROPATHY 04/21/19 07/17/23 History atorvastatin 10 mg tablet 10 mg PO Q48H Cholesterol 05/05/19 07/17/23 History aspirin 81 mg tablet,delayed 81 mg PO DAILY Heart Health 07/26/19 07/17/23 History release acetaminophen 650 mg 650 mg PO BID Pain 11/13/20 07/17/23 History tablet,extended release buspirone 10 mg tablet 10 mg PO TID Anxiety 11/13/20 07/17/23 History furosemide 20 mg tablet 20 mg PO DAILY Fluid 09/11/21 07/17/23 History digoxin 125 mcg (0.125 mg) tablet 125 mcg PO DAILY Heart rhythm 12/26/21 07/17/23 History diltiazem HCl 180 mg 180 mg PO DAILY Heart Rate 03/09/22 07/17/23 History capsule,extended release 24 hr, controlled potassium chloride 10 mEq 20 meq PO DAILY Supplement 02/26/23 07/17/23 History capsule,extended release pantoprazole 40 mg tablet,delayed 40 mg PO DAILYP PRN GERD #90 tabs 06/24/23 07/17/23 Rx release acetaminophen 300 mg-codeine 30 mg 300 tab PO TIDP PRN Moderate Pain 07/17/23 07/18/23 History tablet (Scale Score 5-6) clopidogrel 75 mg tablet 75 mg PO DAILY Platelet Inhibitor 07/17/23 07/17/23 History dicyclomine 20 mg tablet 10 mg PO QIDP PRN STOMACH CRAMPING 07/17/23 07/19/23 History fluticasone propionate 50 50 mcg intranasal BIDP PRN 07/17/23 07/18/23 History mcg/actuation nasal Allergic Symptoms spray,suspension (Flonase Allergy Relief) metoprolol succinate 50 mg 50 mg PO DAILY High Blood Pressure 07/17/23 07/17/23 History tablet,extended release 24 hr New Prescriptions to Start Prescriptions: Allergies Allergy/AdvReac Type Severity Reaction Status Date / Time beef derived (bovine) Allergy Unknown Verified 07/17/23 15:04 allergy reaction lactose Allergy Unknown Verified 02/26/23 10:48 allergy reaction Penicillins Allergy Unknown Verified 02/26/23 10:48 allergy reaction Sulfa (Sulfonamide Allergy Verified 02/26/23 10:48 Antibiotics) Results Laboratory Findings 07/19/23 10:59 07/21/23 06:59 PT/INR, D-dimer PT 12.4 seconds (10.1-12.5) 07/17/23 08:00 INR 1.16 (0.9-1.1) H 07/17/23 08:00 Abnormal lab findings: Abnormal Labs 07/17/23 07/17/23 07/19/23 07:51 08:00 10:59 Hgb 11.3 L 11.6 L MCV 76.6 L 75.2 L MCH 22.8 L 21.8 L MCHC 29.7 L 29.0 L RDW 17.8 H 17.6 H Foard % (Auto) 12.6 H Foard # (Auto) 1.1 H INR 1.16 H VBG pCO2 57.0 H VBG pO2 94.2 H VBG HCO3 30.9 H VBG Total CO2 32.7 H VBG O2 Saturation 97.0 H VBG Base Excess 5.3 H Potassium 3.4 L Chloride 94 L Carbon Dioxide 35 H 41 H* BUN 23 H 20 H Glucose 110 H 111 H Calcium 8.3 L Alkaline Phosphatase 209 H 170 H NT-Pro-B Natriuret Pep 2250 H Digoxin 2.10 H* 07/21/23 06:59 Hgb MCV MCH MCHC RDW Foard % (Auto) Foard # (Auto) INR VBG pCO2 VBG pO2 VBG HCO3 VBG Total CO2 VBG O2 Saturation VBG Base Excess Potassium Chloride Carbon Dioxide 38 H BUN 19 H Glucose Calcium 8.3 L Alkaline Phosphatase NT-Pro-B Natriuret Pep Digoxin Assessment and Plan *Assessment and plan (1) Pleural effusion: Status: Acute Category: Medical Code(s): J90 - Pleural effusion, not elsewhere classified (2) COPD mixed type: Status: Acute Category: Medical Code(s): J44.9 - Chronic obstructive pulmonary disease, unspecified Plan Ms. Banks is a 83-year-old female history of A-fib, aortic insufficiency, CAD, pulmonary hypertension dyslipidemia presented to the hospital status post concerning fall episode and upon admission patient to be had new oxygen requirements pulmonary consult was called for further evaluation and management as also concerning for COPD along with echo showing evidence of pulmonary hypertension. Afebrile. No evidence of leukocytosis upon admission. ABG upon admission did not show any evidence of hypoxic/hypercarbic respiratory failure. CT chest upon admission bilateral pleural effusions, right greater than left along with groundglass opacities. No dense consolidation noted. CT also showed centrilobular emphysematous changes. Chest x-ray from 07/18 on 07/20/2023 continues to bilateral pleural effusions with no significant change. Chest x-ray from this morning showed improving right effusion, continue to show mild to moderate left pleural effusion. Cardiology following, patient receiving diuretics since admission. On examination no significant wheezing noted on auscultation. Patient saturating greater than 90% 2 L. This is new for her. Greater than [id number] smoking history. At baseline she is using Advair and Spiriva inhaler. Given improving pleural effusions on x-ray from this morning we will hold off on performing thoracentesis at this point of time. Will repeat a chest x-ray PA and lateral in 4 to 6 weeks. Plan: Initiate Trelegy 100 inhaler. DuoNebs every 6 hours on as-needed basis Follow in pulmonary clinic in 4 -6 weeks. With a full PFT and 6-minute walk testing. # Thank you for involving pulmonary in this patient care. Will continue to follow.
--- NOTE | 2023-07-21 09:46 | XR_ITS ---
FINAL REPORT TECHNIQUE: Single view chest CLINICAL HISTORY: Hypoxia COMPARISON: 1 day prior FINDINGS: A single view of the chest was obtained. The heart is enlarged. There are small to moderate pleural effusions. Chronic changes are seen in the upper lobes. The lungs are otherwise clear. There is no pneumothorax. Osseous structures are unremarkable. IMPRESSION: Small to moderate pleural effusions. Reviewed, Interpreted and Dictated by Ricardo Gonzalez MD Transcribed by Kylie Wyatt Authenticated and [facility]
[2023-07-21] MEDS: FUROSEMIDE 20 MG/2 ML VIAL IV (09:50)
[2023-07-21 10:03] VITALS: O2SAT 88
--- NOTE | 2023-07-21 10:09 | HMH.PTEV ---
Physical Therapy Evaluation Rehab PT IP Evaluation Start: 07/18/23 09:18 Freq: ONCE Status: Complete Protocol: Document 07/18/23 11:08 KATLIN (Rec: 07/18/23 11:16 KATLIN [id number]) Subjective/History History History Patient is an 83 year old female admitted to [facility] secondary to CHS/ respiratory failure. Patient experienced a fall at home while getting up from the couch trying to answer the phone. Previously independent with all ADL's/IADL's. Intermittent requirement of RW for ambulation. Subjective Subjective I feel alright. I'm ready to go home. Rehab PT IP Eval Objective Appearance Patient Behavior Appropriate,Cooperative Patient Orientation Person,Place,Birthday Difficulty following instructions none Speech Pattern Clear,Appropriate Ambulation Patient Able to Ambulate Yes Ambulation Observation IP General Gait Pattern Observation Wide Based Gait Ambulation Distance (feet) 20 Ambulation Assistive Device None Ambulation Ability Contact Guard/Hand Hold Balance Ability to Arise Able, uses arms to help Sitting Balance Steady, safe Standing Balance Narrow stance w/o support Dynamic Sitting Balance Ability Normal Dynamic Standing Balance Ability Normal Transfers Bed Transfer Ability Supervision/Stand by Sit to Stand Bed Transfer Ability Contact Guard/Hand Hold ROM All Extremities PT ROM Status WFL MMT All Extremities PT MMT WFL Rehab PT IP prob,goals,plan Problems Date of Evaluation: 07/18/23 Discharge Plan PT Discharge Plan PT suggests that patient is a good candidate for DC to home with daughter. She would benefit from having home health rehab. PHYSICIAN CERTIFICATION: I certify the specified therapy services for Suri Banks are required, authorized, and reviewed every 30 days.
[2023-07-21 11:35] VITALS: BP 132/66; PULSE 59; RESP 18; TEMP 36.9; O2SAT 96
--- NOTE | 2023-07-21 13:38 | P.PN_ITS ---
Subjective Subjective Date: 07/21/23 Time: 08:30 Principal diagnosis: syncope, CHF Interval history: This is an 83-year-old female who was admitted to the hospital after syncopal episode. The patient states that she was lying on the couch and try to get up. Her legs were tangled up and the next thing she knows she woke up on the floor. She thinks she must of passed out and hit her head/eye on a small table next to her couch. The patient does have a bruise to the left eye which she states has significantly improved. She states prior to her admission she was having significant lower extremity edema that had started approximately 3 weeks before admission. Her diuretics were increased by her PCP but this really did not help her edema. She also had some increased shortness of breath with exertion. It improves with rest. She denied any chest pain or pressure. The patient has been diuresed and her lower extremity edema has resolved. She states her shortness of breath is significantly improved. She denies any chest pain or pressure. She denies any recurrent syncope. Her vital signs are stable this morning and she states she feels much better. Exam Data for Last 24 hours Vital signs and Labs for Last 24 Hours: Temp Pulse Resp BP Pulse Ox O2 Del Method O2 Flow Rate 98.5 F 59 L 18 132/66 96 Nasal Cannula 2 07/21/23 11:35 07/21/23 11:35 07/21/23 11:35 07/21/23 11:35 07/21/23 11:35 07/21/23 12:53 07/21/23 12:53 Laboratory Results - last 24 hr 07/21/23 06:59: Sodium 140, Potassium 4.3 D, Chloride 100, Carbon Dioxide 38 H, Anion Gap 6.3, BUN 19 H, Creatinine 0.80, Estimated Creat Clear 32, Estimated GFR 69, Est GFR ( Amer) 83, Glucose 97, Calcium 8.3 L, Digoxin 1.30 I & O for Last 24 hours: Intake & Output 07/18/23 07/19/23 07/20/23 07/21/23 23:59 23:59 23:59 23:59 Intake Total 1320 / 1320 640 / 640 670 / 670 720 / 720 Output Total 0 / 0 0 / 0 0 / 0 0 / 0 Balance 1320 / 1320 640 / 640 670 / 670 720 / 720 Weight 99 lb 3.328 oz 99 lb 3.328 oz 101 lb 102 lb 13.636 oz Constitutional Constitutional: no acute distress and average body habitus *Routine HEENT Exam Head: Present normocephalic ENT: Present mucous membranes moist *Routine Neck Exam Neck: Present supple, full ROM and normal carotid upstroke; Absent JVD, carotid bruit or lymphadenopathy *Routine Respiratory Exam Respiratory: Present CTA bilaterally, normal respiratory effort, able to speak in complete sentences and symmetric chest movement *Routine Cardiovascular Exam Cardiovascular: Present RRR, Normal S1 and Normal S2; Absent murmur or gallop *Routine Abdominal Exam Abdominal: Present soft and normoactive bowel sounds; Absent tenderness, distended or organomegaly *Routine Extremities Exam Extremities: Present full ROM, pulses intact and normal capillary refill; Absent cyanosis, clubbing or edema *Routine Skin Exam Skin: Present intact, warm and ecchymosis (black and blue bruising to the L eye. ); Absent erythema *Routine Neurological Exam Neurological: Present alert, oriented X3 and CN II-XII intact; Absent sensory deficit or motor deficit Routine Psychiatric Exam Psychiatric: Present normal affect Progress Note: A&P Assessment and plan (1) Syncope: Status: Acute (2) CAD (coronary artery disease): Status: Chronic (3) Atrial fibrillation: Status: Chronic (4) Presence of Watchman left atrial appendage closure device: Status: Chronic (5) COPD exacerbation: Status: Acute (6) Acute hypoxemic respiratory failure: Status: Acute (7) Bilateral pleural effusion: Status: Acute (8) Fall at home: Status: Acute (9) Tobacco use disorder, moderate, dependence: Status: Chronic (10) Periorbital ecchymosis of left eye: Status: Acute (11) Urinary tract infection in female: Status: Acute (12) Bilateral carotid artery stenosis: Status: Chronic (13) Hypertension: Status: Chronic (14) Hyperlipidemia: Status: Chronic (15) Gastroesophageal reflux disease: Status: Chronic (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 The patient had an unwitnessed syncopal event after waking up on the couch. The patient has a left periorbital bruising without fracture noted. This is improving. 2. The patient had a repeat echocardiogram with no evidence of apical hokum. However the patient would likely benefit from having a cardiac MRI on an outpatient as this is not always noted on echocardiogram. 3. The patient did have an elevated BNP with bilateral pleural effusion and worsening bilateral lower extremity edema on admission. The patient was diuresed with Lasix. We do recommend increasing her home dose of Lasix to 40 mg p.o. twice daily for continued diuresis. Her ejection fraction on her echocardiogram is stable. 4. The patient does have a history of coronary artery disease. She denies any chest pain or pressure. Her troponins are negative. She has ruled out for an MD. No plans for invasive left cardiac catheterization at this time. 5. Her blood pressure is well-controlled today. 6. Her LDL goal is less than 55. 7. The patient does have a history of atrial fibrillation. She is status post watchman's device. No anticoagulation secondary to history of GI bleeding. 8. Carotid artery stenosis is present. History of bilateral endarterectomy. 9. The patient does have COPD and a history of hypoxic respiratory failure. She has been evaluated by pulmonology. Will defer. 10. No further recommendations at this time from a cardiac standpoint. The patient is stable for discharge home today from a cardiac standpoint. We do recommend increasing her Lasix to 40 mg p.o. twice daily with a BMP in 1 week and follow-up in cardiology clinic next week on Friday. Thank you for the opportunity to help participate in the care of this patient. All recommendations and orders are per Dr. Lowery.
--- NOTE | 2023-07-21 14:55 | PC.NURSE ---
room air saturation 88% at rest
--- NOTE | 2023-07-22 10:23 | PC.NURSE ---
urine culture results show e.coli, pt was started on levaquin and dc home, aware, no further action at this time needed
--- NOTE | 2023-07-22 14:11 | CARE MANAGER ---
Contacted patient's daughter related to hospital discharge. She states patient is doing well and has new medications. She is also aware of follow up appointments. Denies any questions or concerns. ROGER Bryan
--- NOTE | 2023-07-29 15:23 | EXP.DC.SUM ---
General Admission date:: 07/17/23 Discharge date: 07/21/23 HPI HPI HPI: This patient is an 83-year-old female with a history of atrial fibrillation, TIA, aortic insufficiency, CAD, hypertrophic cardiomyopathy, pulmonary hypertension, hypertension, and hyperlipidemia on aspirin and Plavix presenting to the emergency department for evaluation with concern for an unwitnessed fall. Patient reports that she fell asleep on the couch last night, and she thought she heard the phone ringing earlier this morning, so she got up to get the phone. She got tangled up in the blankets and had a fall. She states that she remembers getting up in the next and that she knew she was waking up on the floor. She called her daughter immediately after waking up, and her daughter brought her in for evaluation. She currently complains of headache, left eye pain, and nausea. She denies any other injuries or complaints, and she states that she was not having any issues last night for going to bed. In summary, this patient is a 83-year-old female presenting to the Emergency Department for evaluation of headache, left eye pain, and left eye periorbital ecchymosis after a ground-level fall. Patient also noted to be borderline hypoxic with oxygen saturation of 91% on room air. She does have a history of pulmonary hypertension. Differential diagnoses considered include but are not limited to intracranial hemorrhage, skull fracture, globe injury, polytrauma. Ruling out the most morbid conditions drove assessment. It should be noted patient's history includes atrial fibrillation, pulmonary hypertension, hypertension, hyperlipidemia, aortic insufficiency, atrial fibrillation, CAD, hypertrophic cardiomyopathy, carotid artery stenosis, which may or may not be at goal therapy. This complicates all aspects of care by increasing patient's risk for morbidity. I reviewed patient's past medical records and noted previous ED evaluation for GI bleed, as well as most recent cardiology evaluation noting stable CAD, mild aortic insufficiency, and chronic atrial fibrillation that is rate controlled. No anticoagulation, as patient is status post watchman's procedure and has history of GI bleed. On exam, the patient is alert and oriented with no focal neurologic deficits. She does have obvious head trauma with significant left periorbital ecchymosis and hematoma. Mild conjunctival injection of the left eye without obvious concerns for globe injury. Workup included CBC, CMP, coags, troponin, BNP, EKG, CT head, CTA of the head and neck, CT C-spine, and CTA of the chest given hypoxia. She was given oral Tylenol and IV Zofran for symptomatic improvement. I independently interpreted CT scans prior to the radiologist read and noted bilateral pleural effusions as well as pulmonary edema on her chest CT, however no other acute findings such as intracranial hemorrhage, fracture, or other concern. Please see their read for final interpretation. Labs were obtained that demonstrated elevated BNP without other acute concern at this time. Patient continues to be hypoxic on room air with oxygen saturations in the mid 80s. She was placed on 2 L nasal cannula with improvement to 91 to 92%. She desats even lower with ambulation. Given this, I called and had an interactive discussion with her primary care provider, Dr. Puente, who advised that he would admit the patient for further evaluation and management. She was given 40 mg of IV Lasix prior to admission with good urine output but no improvement in her oxygenation.. At this time, patient was admitted in stable condition. (above as per ER physician) The patient states she does not know how long she was on the floor. She thinks she must have passed out. She may have hit the small table with her eye. She states she has had increased edema in her legs for the past few months. Dr. Floyd is her service person and she has not seen him in a while but does have an appt in August. She also has felt poorly this past week with a cough and congestion. She has also been weak. Hospital Course Hospital Course Hospital Course: The patient had multiple images that showed no fracture. There was left periorbital soft tissue swelling. The patient was checked for COVID and flu and these were both negative. She was continued on supplemental oxygen and cardiology was consulted. Her only real complaint was of pain in the left eye. An ice pack was ordered. Cardiology the saw the patient and ordered an echo. They wanted her continued on telemetry to monitor for episodes of ventricular tachycardia or bradycardia that might have caused her syncopal episode. They wanted her continued on Lasix due to the elevated BNP. Her echo showed normal left ventricular systolic function, mildly to moderately dilated right ventricle with mild reduction in RV function, and severe biatrial dilatation. She had a markedly elevated RVSP of greater than 60 mmHg and pleural effusion was present. Cardiology recommended continued diuresis and a pulmonology consult for pulmonary hypertension. There was no evidence of recurrent apical HOCM. The periorbital edema began improving. Diuresis was continued as per cardiology. She began feeling better and was able to sleep. Her shortness of breath improved. She had to be given p.o. potassium due to hypokalemia. She was found to have a possible UTI and was started on Levaquin. She was seen by pulmonology who wanted to initiate Trelegy and DuoNebs and have the patient follow-up in the pulmonology clinic in 4 to 6 weeks with a full PFT and 6-minute walk test. Cardiology saw the patient again and felt she would likely benefit from having a cardiac MRI on an outpatient basis. They wanted her home dose of Lasix increased to 40 mg twice daily for continued diuresis. They felt she was stable to be discharged home and will need to follow-up in the cardiology office and have a BMP in 1 week. Exam Data for Last 24 hours Vital signs and Labs for Last 24 Hours: Temp Pulse Resp BP Pulse Ox O2 Del Method O2 Flow Rate 98.5 F 59 L 18 132/66 96 Nasal Cannula 2 07/21/23 11:35 07/21/23 11:35 07/21/23 11:35 07/21/23 11:35 07/21/23 11:35 07/21/23 14:56 07/21/23 14:56 Narrative: Constitutional Constitutional: no acute distress *Routine HEENT Exam Head: Present normocephalic and atraumatic Eye: Present periorbital ecchymosis (left), periorbital swelling (left) and periorbital tenderness (left) ENT: Present mucous membranes dry *Routine Neck Exam Neck: Present supple and full ROM *Routine Respiratory Exam Respiratory: Present decreased breath sounds *Routine Cardiovascular Exam Cardiovascular: Present irregularly irregular *Routine Abdominal Exam Abdominal: Present soft, normoactive bowel sounds and tenderness (diffuse) *Routine Rectal Exam Rectal:: deferred *Routine Genitalia Exam Genitalia:: deferred *Routine Extremities Exam Extremities: Present edema (bilateral lower extremities); Absent cyanosis or clubbing *Routine Skin Exam Skin: Present intact and ecchymosis (and edema of left orbit); Absent erythema *Routine Neurological Exam Neurological: Present alert and oriented X3 DS: Diagnosis Discharge Diagnosis (1) Pleural effusion: Status: Acute Code(s): J90 - Pleural effusion, not elsewhere classified (2) COPD mixed type: Status: Acute Code(s): J44.9 - Chronic obstructive pulmonary disease, unspecified Meds Home Medications and Allergies Home Medications Medication Instructions Recorded Confirmed Type gabapentin 100 mg capsule 100 mg PO HS NEUROPATHY 04/21/19 07/17/23 History atorvastatin 10 mg tablet 10 mg PO Q48H Cholesterol 05/05/19 07/17/23 History aspirin 81 mg tablet,delayed 81 mg PO DAILY Heart Health 07/26/19 07/17/23 History release acetaminophen 650 mg 650 mg PO BID Pain 11/13/20 07/17/23 History tablet,extended release buspirone 10 mg tablet 10 mg PO TID Anxiety 11/13/20 07/17/23 History furosemide 20 mg tablet 20 mg PO DAILY Fluid 09/11/21 07/17/23 History digoxin 125 mcg (0.125 mg) tablet 125 mcg PO DAILY Heart rhythm 12/26/21 07/17/23 History diltiazem HCl 180 mg 180 mg PO DAILY Heart Rate 03/09/22 07/17/23 History capsule,extended release 24 hr, controlled potassium chloride 10 mEq 20 meq PO DAILY Supplement 02/26/23 07/17/23 History capsule,extended release pantoprazole 40 mg tablet,delayed 40 mg PO DAILYP PRN GERD #90 tabs 06/24/23 07/17/23 Rx release acetaminophen 300 mg-codeine 30 mg 300 tab PO TIDP PRN Moderate Pain 07/17/23 07/18/23 History tablet (Scale Score 5-6) clopidogrel 75 mg tablet 75 mg PO DAILY Platelet Inhibitor 07/17/23 07/17/23 History dicyclomine 20 mg tablet 10 mg PO QIDP PRN STOMACH CRAMPING 07/17/23 07/19/23 History fluticasone propionate 50 50 mcg intranasal BIDP PRN 07/17/23 07/18/23 History mcg/actuation nasal Allergic Symptoms spray,suspension (Flonase Allergy Relief) metoprolol succinate 50 mg 50 mg PO DAILY High Blood Pressure 07/17/23 07/17/23 History tablet,extended release 24 hr levofloxacin 250 mg tablet 250 mg PO DAILY #5 tabs 07/21/23 Rx spironolactone 25 mg tablet 25 mg PO BID #60 tabs 07/21/23 Rx New Prescriptions to Start Prescriptions: levofloxacin Akanksha Marie spironolactone Nazanin Puente Allergies Allergy/AdvReac Type Severity Reaction Status Date / Time beef derived (bovine) Allergy Unknown Verified 07/17/23 15:04 allergy reaction lactose Allergy Unknown Verified 02/26/23 10:48 allergy reaction Penicillins Allergy Unknown Verified 02/26/23 10:48 allergy reaction Sulfa (Sulfonamide Allergy Verified 02/26/23 10:48 Antibiotics) Discharge Plan Disposition Patient Disposition: Home Health Service Condition: Good Discharge Order Discharge Orders: Discharge Order (Routine); Ordered 07/21/23 Ordered By: Nazanin Puente Follow up Plan Follow up with: Nazanin Puente MD [Primary Care Provider] - 08/01/23 1:30 pm Brian Adkins MD [Physician] - 08/25/23 1:00 pm (complete pft with 6 minute walk 08/21/23 at 1:00) Prescriptions/Medication Reconciliation: New spironolactone 25 mg Tablet 25 mg PO BID Qty: 60 4RF levofloxacin 250 mg tablet 250 mg PO DAILY Qty: 5 0RF Rx Instructions: start 07/22/23 Continued digoxin 125 mcg (0.125 mg) tablet 125 mcg PO DAILY potassium chloride 10 mEq capsule, extended release 20 meq PO DAILY furosemide 20 mg tablet 20 mg PO DAILY pantoprazole 40 mg tablet,delayed release (DR/EC) 40 mg PO DAILYP PRN (Reason: GERD) Qty: 90 3RF gabapentin 100 MG capsule 100 mg PO HS atorvastatin 10 mg tablet 10 mg PO Q48H metoprolol succinate 50 mg tablet extended release 24 hr 50 mg PO DAILY clopidogrel 75 mg tablet 75 mg PO DAILY Patient Comments: TAKE 1 TABLET BY MOUTH ONCE DAILY FOR BLOOD THINNER acetaminophen-codeine 300-30 mg tablet 300 tab PO TIDP PRN (Reason: Moderate Pain (Scale Score 5-6)) dicyclomine 20 mg tablet 10 mg PO QIDP PRN (Reason: STOMACH CRAMPING) Patient Comments: TAKE 1 TABLET BY MOUTH 4 TIMES DAILY NEEDED fluticasone propionate [Flonase Allergy Relief] 50 mcg/actuation [place],Suspension 50 mcg INTRANASAL BIDP PRN (Reason: Allergic Symptoms) aspirin 81 MG tablet,delayed release (DR/EC) 81 mg PO DAILY acetaminophen 650 MG tablet extended release 650 mg PO BID buspirone 10 MG tablet 10 mg PO TID diltiazem HCl 180 MG capsule,ext.rel 24h degradable 180 mg PO DAILY Patient Comments: TAKE 1 CAPSULE BY MOUTH ONCE DAILY Other Ambulatory Orders: RT walk test 6 minutes (Routine) Timeframe: 4 Weeks Facility: [facility] - Location: Respiratory Therapy Ordered By: Brian Adkins RT complete PFT (Routine) Timeframe: 4 Weeks Facility: [facility] - Location: Respiratory Therapy Ordered By: Brian Adkins Problem Reconciliation Problems Reviewed?: Yes Patient Discharge Instructions ACTIVITY: Limited activity DIET: advance to your usual diet Patient Instructions: DI for Atrial Fibrillation, DI for Hypokalemia, How to Prevent Falls, DI for Respiratory Failure, DI for Pleural Effusion Providers Primary Care Provider: Nazanin Puente Admit Provider: Nazanin Puente Attending Provider: Nazanin Puente
== END 2023-07-21 16:27 | disposition home health service (06) | DRG 189 ==
LOC: ER 13:41 → 2ND 14:31
PROVIDERS: Physician Assistant; Admitting Provider Family Medicine; Emergency Provider Emergency Medicine; PCP Family Medicine; Visit Provider Family Medicine
DX: J90 Pleural effusion, not elsewhere classified (principal); I42.1 Obstructive hypertrophic cardiomyopathy; J96.01 Acute respiratory failure with hypoxia; N39.0 Urinary tract infection, site not specified; J44.1 Chronic obstructive pulmonary disease with (acute) exacerbation; I48.20 Chronic atrial fibrillation, unspecified; S00.12XA Contusion of left eyelid and periocular area, initial encounter; W19.XXXA Unspecified fall, initial encounter; Y92.009 Unspecified place in unspecified non-institutional (private) residence as the place of occurrence of the external cause; Z72.0 Tobacco use; I65.23 Occlusion and stenosis of bilateral carotid arteries; K21.9 Gastro-esophageal reflux disease without esophagitis; E78.2 Mixed hyperlipidemia; I10 Essential (primary) hypertension; F41.9 Anxiety disorder, unspecified; I27.20 Pulmonary hypertension, unspecified; I48.0 Paroxysmal atrial fibrillation; Z79.01 Long term (current) use of anticoagulants; Z95.818 Presence of other cardiac implants and grafts; I48.91 Unspecified atrial fibrillation; I35.1 Nonrheumatic aortic (valve) insufficiency; Z86.73 Personal history of transient ischemic attack (TIA), and cerebral infarction without residual deficits; I25.119 Atherosclerotic heart disease of native coronary artery with unspecified angina pectoris; I25.2 Old myocardial infarction; F17.210 Nicotine dependence, cigarettes, uncomplicated; E87.6 Hypokalemia; Z71.6 Tobacco abuse counseling; I25.10 Atherosclerotic heart disease of native coronary artery without angina pectoris; F17.200 Nicotine dependence, unspecified, uncomplicated
CPT/HCPCS: 36415; 70450; 70486; 70496; 70498; 71045; 71046; 71250; 72125; 80048; 80053; 80162; 81001; 82803; 83880; 84484; 85025; 85610; 85730; 87086; 87636; 93005; 93306; 97165; 99285; J0131; J2405; Q9967

== ENCOUNTER 2023-08-21 12:47 | Outpatient (CLI) | payer MEDICARE, SELFPAY ==
--- NOTE | 2023-08-21 13:37 | PC.NURSE ---
Pt was not very cooperative. Pt did 3 Flow Volume Loops and 1 SVC attempt with poor effort. Explained to Pt next step is breathing treatment, Pt adamantly refuses breathing treatment. Was unable to complete Pre and Post Spirometry. Pt walked a total of 170 feet in 3 minutes with the use of a walker, then complained of leg pain and states she is not able to continue walking.
== END 2023-08-21 23:59 ==
LOC: RT 12:47
PROVIDERS: PCP Family Medicine; Visit Provider Internal Medicine Pulmonary Disease
DX: J44.9 Chronic obstructive pulmonary disease, unspecified (principal); F17.210 Nicotine dependence, cigarettes, uncomplicated
CPT/HCPCS: 94010; 94618

== ENCOUNTER 2023-09-01 14:15 | Outpatient (CLI) | payer MEDICARE, SELFPAY ==
[2023-09-01 15:03] LABS: Basophils # 0.1 K/mm3 (0-0.2); Basophils % 0.4 % (0.1-2.0); Eosinophils % 0.3 % (0.1-12.0); Hematocrit 43.5 % (37.0-47.0); Hemoglobin 13.3 g/dL (12.2-16.2); Lymphocytes # 2.1 K/mm3 (0.7-4.5); Lymphocytes % 17.6 % (10-50); Mean Corpuscular HGB Conc 30.5 g/dL (31.8-35.4); Mean Corpuscular Hemoglobin 22.8 pg (27.0-31.2); Mean Corpuscular Volume 74.8 fl (81-99); Mean Platelet Volume 7.8 fl (7.4-10.4); Monocytes # 0.9 K/mm3 (0.1-1.0); Monocytes % 7.5 % (1.7-9.3); Neutrophils # 8.8 K/mm3 (1.8-7.8); Neutrophils % 74.1 % (37.0-80.0); Platelet Count 443 K/mm3 (142-424); Red Blood Count 5.81 M/mm3 (4.20-5.40); Red Cell Distribution Width 18.6 % (11.5-17.5); White Blood Count 11.9 K/mm3 (4.8-10.8)
[2023-09-01 15:28] LABS: Free T4 (Free Thyroxine) 1.17 ng/dl (0.78-2.19)
[2023-09-23 10:21] LABS: Chloride 98 mmol/L (98-107); Sodium 132 mmol/L (136-145)
[2023-09-23 10:22] LABS: Potassium 4.7 mmoL/L (3.5-5.1)
[2023-09-23 10:24] LABS: Alanine Aminotransferase 30 U/L (12-78); Albumin Level 4.4 g/dl (3.5-5.0); Alkaline Phosphatase 138 U/L (38-126); Anion Gap 8.7 mEq/L (5-15); Aspartate Amino Transferase 29 U/L (14-36); Bilirubin,Direct 0.3 mg/dl (0.0-0.4); Bilirubin,Indirect 0.2 mg/dL (0.0-0.9); Bilirubin,Total 0.5 mg/dl (0.2-1.3); Bilirubin,Unconjugated 0.2 mg/dL (0.0-1.1); Blood Urea Nitrogen 24 mg/dl (7-17); Calcium 9.2 mg/dl (8.4-10.2); Carbon Dioxide 30 mmol/L (22.0-30.0); Cholesterol 119 mg/dl (140-200); Estimated Glomerular Filt Rate 53 ml/min (>60); GFR (African American) 64 ML/MIN (>60); Glucose 122 mg/dl (74-100); Total Protein,Serum 7.4 g/dl (6.3-8.2); Triglycerides 104 mg/dl (30-150); VLDL Cholesterol 21 mg/dL (0-40)
[2023-09-23 10:25] LABS: Chol/HDL Ratio 2.9 (1-3.5); HDL Cholesterol 41 mg/dl (40-60); Magnesium 1.9 mg/dl (1.6-2.3)
[2023-09-23 10:42] LABS: Direct LDL Cholesterol 55.45 mg/dL (100-129)
[2023-09-23 10:58] LABS: Thyroid Stimulating Hormone 1.44 uIU/mL (0.465-4.68)
== END 2023-09-01 23:59 ==
LOC: LAB 14:16
PROVIDERS: PCP Family Medicine; Visit Provider Nurse Practitioner
DX: I25.10 Atherosclerotic heart disease of native coronary artery without angina pectoris; I10 Essential (primary) hypertension; I27.20 Pulmonary hypertension, unspecified; I42.1 Obstructive hypertrophic cardiomyopathy; I48.91 Unspecified atrial fibrillation; E78.5 Hyperlipidemia, unspecified; I65.23 Occlusion and stenosis of bilateral carotid arteries; Z95.818 Presence of other cardiac implants and grafts; Z98.890 Other specified postprocedural states; Z72.0 Tobacco use
CPT/HCPCS: 36415; 80048; 80061; 80076; 80162; 83735; 84439; 84443; 85025

== ENCOUNTER 2023-09-23 09:53 | Outpatient (CLI) | payer MEDICARE, SELFPAY | END 2023-09-23 23:59 | LOC: RAD 09:54 | PROVIDERS: PCP Family Medicine; Visit Provider Nurse Practitioner | DX: I42.1 Obstructive hypertrophic cardiomyopathy (principal) ==

== ENCOUNTER 2023-11-05 19:03 | Inpatient (IN) | payer MEDICARE, SELFPAY ==
[2023-11-05] VITALS (10 sets, daily range): BP systolic 118–190; BP diastolic 64–95; PULSE 59–77; RESP 15–18; TEMP 36.4–36.8; O2SAT 95–100; BMI 17.2
--- NOTE | 2023-11-05 19:36 | PC.NURSE ---
Attempted IV x2. Harshal. ROGER Escamilla attempted x1. Patient tolerated IV stick well. Unsuccessful attempts.
--- NOTE | 2023-11-05 19:53 | XR_ITS ---
PROCEDURE INFORMATION: Exam: XR Chest Exam date and time: 11/05/2023 7:58 PM Age: 83 years old Clinical indication: Other: AMS; Additional info: AMS, confusion TECHNIQUE: Imaging protocol: Radiologic exam of the chest. Views: 1 view. COMPARISON: CR XR CHEST PORTABLE 21/07/2023 10:29 FINDINGS: Tubes, catheters and devices: Metallic cardiac device is noted. Lungs: Stigmata of old granulomatous disease. Pleural spaces: Unremarkable. No pleural effusion. No pneumothorax. Heart/Mediastinum: Right-sided great vessel arterial stent. Cardiomegaly. Vasculature: Vascular calcifications. Bones/joints: Old right rib fractures. IMPRESSION: No acute findings.
--- NOTE | 2023-11-05 19:53 | CT_ITS ---
PROCEDURE INFORMATION: Exam: CT Head Without Contrast Exam date and time: 11/05/2023 8:06 PM Age: 83 years old Clinical indication: Altered mental status/memory loss; Additional info: AMS, confusion TECHNIQUE: Imaging protocol: Computed tomography of the head without contrast. Radiation optimization: All CT scans at this facility use at least one of these dose optimization techniques: automated exposure control; mA and/or kV adjustment per patient size (includes targeted exams where dose is matched to clinical indication); or iterative reconstruction. COMPARISON: CT ANGIO HEAD 17/07/2023 09:19 FINDINGS: Brain: Mild chronic brain volume loss and chronic small vessel ischemic changes. Chronic left cerebellar hemisphere infarction. Cerebral ventricles: No ventriculomegaly. Paranasal sinuses: Visualized sinuses are unremarkable. No fluid levels. Mastoid air cells: Visualized mastoid air cells are well aerated. Orbital cavities: Status post left cataract surgery. Bones/joints: Unremarkable. No acute fracture. Soft tissues: Unremarkable. IMPRESSION: No acute intracranial findings. If there is high clinical concern for acute infarction, consider MRI for further evaluation. ASSESSMENT: ASPECTS score ([place] Stroke Program Early CT Score) is 10.
[2023-11-05 20:00] LABS: Microscopic, Urine URINE MICROSCOPIC (MICROSCOPIC)
--- NOTE | 2023-11-05 20:00 | PC.NURSE ---
assisted pt to [facility]. ua sent to lab
[2023-11-05 20:10] LABS: Appearance,Urine CLEAR (Clear); Bilirubin,Urine Negative (Negative); Blood, Urine Negative (Negative); Color,Urine YELLOW (Yellow); Glucose,Urine (UA) Negative (Negative); Ketones,Urine Negative (Negative); Leukocyte Esterase,Urine 2+ (Negative); Nitrate,Urine POSITIVE (Negative); Protein,Urine Negative (Negative); Specific Gravity, Urine 1.015 (1.005-1.030); Urobilinogen,Urine 0.2 EU/dl (0.2)
[2023-11-05 20:11] LABS: Alanine Aminotransferase 23 U/L (12-78); Albumin Level 4.1 g/dl (3.5-5.0); Albumin/Globulin Ratio 1.4 (1.1-1.8); Alkaline Phosphatase 130 U/L (38-126); Anion Gap 9.4 mEq/L (5-15); Aspartate Amino Transferase 25 U/L (14-36); Bilirubin,Total 0.7 mg/dl (0.2-1.3); Blood Urea Nitrogen 29 mg/dl (7-17); Calcium 9.9 mg/dl (8.4-10.2); Carbon Dioxide 30 mmol/L (22.0-30.0); Chloride 101 mmol/L (98-107); Creatinine Clearance Estimated 30 mL/min (50-200); Estimated Glomerular Filt Rate 53 ml/min (>60); GFR (African American) 64 ML/MIN (>60); Globulin 2.9 g/dL (1.3-3.2); Glucose 112 mg/dl (74-100); Potassium 5.4 mmoL/L (3.5-5.1); Sodium 135 mmol/L (136-145)
[2023-11-05 20:12] LABS: Basophils # 0.2 K/mm3 (0-0.2); Basophils % 1.5 % (0.1-2.0); Eosinophils % 0.1 % (0.1-12.0); Hematocrit 42.3 % (37.0-47.0); Hemoglobin 12.7 g/dL (12.2-16.2); Lymphocytes # 1.3 K/mm3 (0.7-4.5); Lymphocytes % 11.8 % (10-50); Mean Corpuscular Hemoglobin 24.1 pg (27.0-31.2); Mean Corpuscular Volume 80.4 fl (81-99); Mean Platelet Volume 8.7 fl (7.4-10.4); Monocytes # 0.8 K/mm3 (0.1-1.0); Monocytes % 7.6 % (1.7-9.3); Neutrophils # 8.6 K/mm3 (1.8-7.8); Neutrophils % 78.9 % (37.0-80.0); Platelet Count 300 K/mm3 (142-424); Red Blood Count 5.26 M/mm3 (4.20-5.40); Red Cell Distribution Width 18.4 % (11.5-17.5); White Blood Count 10.9 K/mm3 (4.8-10.8)
[2023-11-05 20:15] LABS: Activated Partial Thrombo Time 25.4 seconds (22.8-30.6); INR 0.98 (0.9-1.1); Prothrombin Time 10.6 seconds (10.1-12.5)
[2023-11-05 20:24] LABS: Barbiturates Screen,Urine Negative ng/ml (<200)
[2023-11-05 20:25] LABS: Amphetamine/Metha Screen,Urine Negative ng/ml (<1000); Benzodiazepines Screen,Urine Negative ng/ml (<200)
[2023-11-05 20:26] LABS: Cannabinoid Screen,Urine Negative ng/ml (<50); Cocaine Screen,Urine Negative ng/ml (<300)
[2023-11-05 20:27] LABS: Methadone Screen,Urine Negative ng/ml (<300)
[2023-11-05 20:28] LABS: Opiate Screen,Urine Negative ng/ml (<300)
[2023-11-05 20:29] LABS: Phencyclidine Screen,Urine Negative ng/ml (<25)
[2023-11-05 20:29] LABS: Bacteria,Urine 2+ /lpf; Transitional Epi Cells,Urine OCC #/lpf (0-3)
[2023-11-05 20:46] LABS: Lactate Venous 2.4 mmol/L (0.4-2.0); VBG Base Excess -0.3 mmol/L (-2.4-2.3); VBG HCO3 25.3 mmol/L (23-30); VBG Oxygen Saturation 68.7 % (50-70); VBG PCO2 46.3 mmol/L (35-51); VBG PH 7.36 mmol/L (7.31-7.41); VBG PO2 37.8 mmol/L (28-40); VBG Total CO2 26.7 mmol/L (23-27)
[2023-11-05 20:48] LABS: T4 (Thyroxine) 9.3 ug/dl (5.53-11.0)
--- NOTE | 2023-11-05 20:58 | ECG_ITS ---
APPROVED REPORT Exam: Resting ECG HR:57 bpm ECG Measurements Heart Rate 57 AXES QRSd 109 QRS 52 QT 301 T 0 QTc 295 Conclusion ATRIAL FIBRILLATION WITH SLOW VENTRICULAR RESPONSE MARKED ST DEPRESSION, CONSIDER SUBENDOCARDIAL INJURY [0.2+ mV ST DEPRESSION] ACUTE MS Could also be related to patient's digoxin use, however cannot exclude ischemia Electronically signed by : FAM IBARRA, 11/05/2023 23:25:08
[2023-11-05 21:01] LABS: Thyroid Stimulating Hormone 0.76 uIU/mL (0.465-4.68)
[2023-11-05 21:07] LABS: Troponin I 0.25 ng/ml (0.00-0.034)
--- NOTE | 2023-11-05 21:18 | PC.NURSE ---
STEMI alert per Dr. Hernandez at [phone]. sugar laboratory assistant activated
--- NOTE | 2023-11-05 21:19 | ED_ITS ---
Discharge Plan Disposition Chief Complaint: Recheck/Abnormal Lab/Rx Prescriptions Prescriptions: No Action potassium chloride 10 mEq capsule, extended release 20 meq PO DAILY Stiolto Respimat 2.5-2.5 mcg/actuation mist 2 puff inhalation DAILY 90 Days Qty: 4 2RF ipratropium-albuterol 0.5 mg-3 mg(2.5 mg base)/3 mL solution for nebulization 3 ml inhalation QID PRN (Reason: shortness of breath or wheezing) 90 Days Qty: 90 2RF furosemide 20 mg tablet 20 mg PO DAILY digoxin 250 mcg (0.25 mg) tablet 250 mcg PO DAILY Qty: 30 2RF pantoprazole 40 mg tablet,delayed release (DR/EC) 40 mg PO DAILYP PRN (Reason: GERD) Qty: 90 3RF gabapentin 100 MG capsule 100 mg PO HS atorvastatin 10 mg tablet 10 mg PO Q48H metoprolol succinate 50 mg tablet extended release 24 hr 50 mg PO DAILY clopidogrel 75 mg tablet 75 mg PO DAILY Patient Comments: TAKE 1 TABLET BY MOUTH ONCE DAILY FOR BLOOD THINNER dicyclomine 20 mg tablet 10 mg PO QIDP PRN (Reason: STOMACH CRAMPING) Patient Comments: TAKE 1 TABLET BY MOUTH 4 TIMES DAILY NEEDED fluticasone propionate [Flonase Allergy Relief] 50 mcg/actuation [place],Suspension 50 mcg INTRANASAL BIDP PRN (Reason: Allergic Symptoms) spironolactone 25 mg Tablet 25 mg PO BID Qty: 60 4RF aspirin 81 MG tablet,delayed release (DR/EC) 81 mg PO DAILY acetaminophen 650 MG tablet extended release 650 mg PO BID buspirone 10 MG tablet 10 mg PO TID diltiazem HCl 180 MG capsule,ext.rel 24h degradable 180 mg PO DAILY Patient Comments: TAKE 1 CAPSULE BY MOUTH ONCE DAILY Referrals Follow up/Referrals: Julio C Puente MD [Primary Care Provider] - See instructions Clinical Impressions Clinical Impression: ST elevation ME (STEMI), Accidental digoxin overdose, Acute UTI Discharge ED Provider: Fernanda Hernandez General Adult HPI General Chief complaint: Recheck/Abnormal Lab/Rx Stated complaint: confused Time Seen by Provider: 11/05/23 19:12 Mode of Arrival: Wheelchair Source of Information: Patient and Relative Limitations: No Limitations Description of Symptoms (Recalled from ER Triage Doc. by RN): Pt presents to ED for possibly taking today's medicine last night. Pt's daughter states her mother lives alone and has become more confused in the last few months. Pt is not positive that she took the medicine. She thinks it's possible. Pt is A&O*4 at this time. Hx of CHF, A-fib History of Present Illness HPI narrative: This patient is an 83-year-old female with history of atrial fibrillation on digoxin, hypertrophic cardiomyopathy, CAD, carotid stenosis, hypertension, hyperlipidemia, GERD, aortic insufficiency, and COPD presenting with concern for months of confusion that typically happens at night. Patient reports that at night, she will do things that she does not remember. She will wake up and call people, including calling 911 thinking that she had someone in her house the other night. She also notes that she got up last night and apparently had taken her medications for today all at 12:30 AM last night. She does not remember doing that, but her family member told her that she did. She notes that all day today, she has been off. She believes this is related to taking too many of her medications. She denies any other concerns, such as fevers, chills, chest pain, shortness of breath, abdominal pain, nausea, vomiting, change in bowel movements, rashes, or swelling. She denies any headaches or neurologic symptoms, but she does note that she has had chronic visual changes related to cataract surgery. Related Data Home Medications Medication Instructions Recorded Confirmed gabapentin 100 mg capsule 100 mg PO HS NEUROPATHY 04/21/19 11/05/23 atorvastatin 10 mg tablet 10 mg PO Q48H Cholesterol 05/05/19 11/05/23 aspirin 81 mg tablet,delayed 81 mg PO DAILY Heart Health 07/26/19 11/05/23 release acetaminophen 650 mg 650 mg PO BID Pain 11/13/20 11/05/23 tablet,extended release buspirone 10 mg tablet 10 mg PO TID Anxiety 11/13/20 11/05/23 furosemide 20 mg tablet 20 mg PO DAILY Fluid 09/11/21 11/05/23 diltiazem HCl 180 mg 180 mg PO DAILY Heart Rate 03/09/22 11/05/23 capsule,extended release 24 hr, controlled potassium chloride 10 mEq 20 meq PO DAILY Supplement 02/26/23 11/05/23 capsule,extended release clopidogrel 75 mg tablet 75 mg PO DAILY Platelet Inhibitor 07/17/23 11/05/23 dicyclomine 20 mg tablet 10 mg PO QIDP PRN STOMACH CRAMPING 07/17/23 11/05/23 fluticasone propionate 50 50 mcg intranasal BIDP PRN 07/17/23 11/05/23 mcg/actuation nasal Allergic Symptoms spray,suspension (Flonase Allergy Relief) metoprolol succinate 50 mg 50 mg PO DAILY High Blood Pressure 07/17/23 11/05/23 tablet,extended release 24 hr Previous Rx's Medication Instructions Recorded spironolactone 25 mg tablet 25 mg PO BID #60 tabs 07/21/23 ipratropium 0.5 mg-albuterol 3 mg 3 ml inhalation QID PRN shortness 08/25/23 (2.5 mg base)/3 mL nebulization of breath or wheezing 90 days #90 soln mL tiotropium 2.5 mcg-olodaterol 2.5 2 puff inhalation DAILY 90 days #4 08/25/23 mcg/actuation mist for inhalation grams (Stiolto Respimat) digoxin 250 mcg (0.25 mg) tablet 250 mcg PO DAILY #30 tabs 09/01/23 pantoprazole 40 mg tablet,delayed 40 mg PO DAILYP PRN GERD #90 tabs 10/27/23 release Allergies Allergy/AdvReac Type Severity Reaction Status Date / Time beef derived (bovine) Allergy Unknown Verified 10/02/23 13:38 allergy reaction lactose Allergy Unknown Verified 10/02/23 13:38 allergy reaction Penicillins Allergy Unknown Verified 10/02/23 13:38 allergy reaction Sulfa (Sulfonamide Allergy Verified 10/02/23 13:38 Antibiotics) [facility] Disclaimer: The information contained in this section may have been updated after the patient was seen, as this information can be updated by other users. Medical History Smoking greater than 30 pack years COPD mixed type Pleural effusion Syncope Hypokalemia COPD exacerbation Fall at home Pulmonary edema Adverse effect of antiplatelet agent Acute lower gastrointestinal bleeding Ischemic bowel disease Diarrhea Epigastric pain Chest pain Gastroesophageal reflux disease Presence of Watchman left atrial appendage closure device Angina, class II Aortic insufficiency Elevated troponin TIA (transient ischemic attack) Rapid atrial fibrillation Atrial fibrillation with RVR Anxiety Dyspnea Bilateral carotid artery stenosis Stress reaction Palpitations Blood loss anemia Abdominal pain Apical variant hypertrophic cardiomyopathy Burning with urination Constipation 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 use of anticoagulant Paroxysmal atrial fibrillation CAD (coronary artery disease) New onset a-fib HOCM (hypertrophic obstructive cardiomyopathy) Carotid artery stenosis Pulmonary HTN Diastolic dysfunction Subclavian artery stenosis, right Hyperlipidemia Hypertension NSTEMI (non-ST elevated myocardial infarction) Anxiety disorder Tobacco abuse Arteriosclerotic cardiovascular disease Surgical History History of colonoscopy History of right heart catheterization (RHC) History of appendectomy History of cholecystectomy History of hysterectomy Status post carotid endarterectomy Family History Other Cancer Coronary artery disease Diabetes Family history of diabetes mellitus type II Family history of myocardial infarction Hypertension Stroke Social History Smoking Status: Current every day smoker tobacco type: cigarettes packs per day: 1 alcohol intake: never substance use type: denies use current occupational status: retired Travel in the last 8 weeks: None household members: none housing: house lives independently: Yes marital status: single education level: middle school service: No caffeine: No special fanny needs: No agree to transfusion: No do you feel safe at home: Yes victim of physical abuse: No victim of emotional abuse: No victim of sexual abuse: No would you like helpful sources: No ROS Obtained: Yes All systems reviewed & no additional complaints except as documented Physical Exam General General appearance: alert and in no apparent distress Head Head exam: atraumatic and normocephalic Eye Eye exam: Present normal appearance, PERRL and EOMI ENT ENT exam: Present normal exam, normal oropharynx, mucous membranes moist and normal external ear exam Neck Neck exam: Present normal inspection, full ROM and trachea midline; Absent tenderness Chest Chest inspection: Present normal inspection and symmetric chest wall rise; Absent tenderness Respiratory Respiratory exam: Present normal lung sounds bilaterally; Absent respiratory distress, wheezes, stridor or accessory muscle use Cardiovascular Cardiovascular exam: Present bradycardia and irregular rhythm Abdominal Exam Abdominal exam: Present soft; Absent distention, tenderness or guarding Extremities Exam Extremities exam: Present normal inspection, full ROM and normal capillary refill; Absent tenderness or edema Back Exam Back exam: Present normal inspection and full ROM; Absent tenderness Neurological Exam Neurological exam: Present alert, oriented X3, CN II-XII intact and normal gait; Absent motor sensory deficit Psychiatric Psychiatric exam: Present normal affect and normal mood Skin Skin exam: Present warm and dry Medical Decision Making Medical Records Medical records reviewed: Yes I reviewed the patient's medical records. Jorge Inquiry Pt receiving controlled substance: No Vital Signs: 11/05/23 19:04 11/05/23 21:08 Temperature 97.8 F 97.8 F Temperature Source Oral Oral Pulse Rate 59 L Pulse Rate [Left] 67 Respiratory Rate 18 16 Blood Pressure 153/72 H Blood Pressure [Right Arm] 159/67 H Blood Pressure Mean [Right Arm] 97 02 Sat by Pulse Oximetry 96 95 Oxygen Delivery Method Room Air Room Air Lab Data Lab results reviewed: Yes I reviewed the patient's lab results. Lab Results 11/05/23 19:26: Urine Color Yellow, Urine Appearance Clear, Urine pH 6.0, Ur Specific [place] 1.015, Urine Protein Negative, Urine Glucose (UA) Negative, Urine Ketones Negative, Urine Blood Negative, Urine Nitrate Positive, Urine Bilirubin Negative, Urine Urobilinogen 0.2, Ur Leukocyte Esterase 2+ A, Urine RBC None, Urine WBC 5-10, Ur Squamous Epith Cells 3-5, Ur Transition Epith Cell Occ, Urine Bacteria 2+ 11/05/23 19:39: WBC 10.9 H, RBC 5.26, Hgb 12.7, Hct 42.3, MCV 80.4 L, MCH 24.1 L , MCHC 30.0 L, RDW 18.4 H, Plt Count 300, MPV 8.7, Neut % (Auto) 78.9, Lymph % (Auto) 11.8, [place] % (Auto) 7.6, Eos % (Auto) 0.1, Baso % (Auto) 1.5, Neut # (Auto) 8.6 H, Lymph # (Auto) 1.3, [place] # (Auto) 0.8, Eos # (Auto) 0.0, Baso # (Auto) 0.2, PT 10.6, INR 0.98, APTT 25.4, Sodium 135 L, Potassium 5.4 H, Chloride 101, Carbon Dioxide 30, Anion Gap 9.4, BUN 29 H, Creatinine 1.00, Estimated Creat Clear 30, Estimated GFR 53 L, Est GFR ( Amer) 64, Glucose 112 H, Calcium 9.9, Total Bilirubin 0.7, AST 25, ALT 23, Alkaline Phosphatase 130 H, Troponin I 0.25 H, Total Protein 7.0, Albumin 4.1, Globulin 2.9, Albumin/Globulin Ratio 1.4, TSH 0.76, Thyroxine (T4) 9.3, Digoxin 6.00 H* 11/05/23 19:53: VBG pH 7.36, VBG pCO2 46.3, VBG pO2 37.8, VBG HCO3 25.3, VBG Total CO2 26.7, VBG O2 Saturation 68.7, VBG Base Excess -0.3, VBG Lactic Acid 2.4 H 11/05/23 19:56: Urine Opiates Screen Negative, Urine Methadone Screen Negative, Ur Barbituates Screen Negative, Ur Phencyclidine Scrn Negative, Ur Amphetamines Screen Negative, U Benzodiazepines Scrn Negative, Urine Cocaine Screen Negative, U Marijuana (THC) Screen Negative 11/05/23 19:39 11/05/23 19:39 Orders (Tests/Meds): ED MEDICATIONS Generic Name Dose Route Start Last Admin Trade Name Balajiq PRN Reason Stop Dose Admin Diphenhydramine HCl 50 mg 11/05/23 21:43 Diphenhydramine 50mg/Ml Vial IV 11/05/23 21:44 ONCE ONE Fentanyl Citrate 50 mcg 11/05/23 21:43 Fentanyl 100mcg/2ml Vial IV 11/06/23 09:43 Q3MINP PRN Moderate to Severe Pain (4-10) Fentanyl Citrate 25 mcg 11/05/23 21:43 Fentanyl 250mcg/5ml Vial IV 11/06/23 09:43 Q3MINP PRN Moderate to Severe Pain (4-10) Fentanyl Citrate 50 mcg 11/05/23 21:43 Fentanyl 250mcg/5ml Vial IV 11/06/23 09:43 Q3MINP PRN Moderate to Severe Pain (4-10) Fentanyl Citrate 25 mcg 11/05/23 21:43 Fentanyl 100mcg/2ml Vial IV 11/06/23 09:43 Q3MINP PRN Moderate to Severe Pain (4-10) Flumazenil 0.2 mg 11/05/23 21:43 Flumazenil 0.1mg/Ml 5ml Vial IV 11/06/23 09:43 NEEDED PRN Sedation Heparin Sodium (Porcine) 10,000 unit 11/05/23 21:43 Heparin 1,000 Units/Ml 10ml Vial (Project Management Specialist) IV 11/06/23 01:43 NEEDED PRN Emergency Box Realtime Captioner Heparin Sodium/Sodium Chloride 3,000 unit 11/05/23 21:43 Heparin 1,000 Units/500ml Ns (Project Management Specialist) IV 11/05/23 21:44 ONCE ONE Hydralazine HCl 20 mg 11/05/23 21:43 Hydralazine 20mg/Ml Vial IV 11/06/23 01:43 ONCE PRN sbp>160 Adenosine 180 mg/ Sodium 90 mls @ 230.245 mls/hr 11/05/23 21:43 Chloride IV 11/06/23 01:43 ONCE PRN fractional flow reserve 180 MCG/KG/MIN Adenosine 90 mg/ Sodium 90 mls @ 460.49 mls/hr 11/05/23 21:43 Chloride IV 11/06/23 01:43 ONCE PRN fractional flow reserve 180 MCG/KG/MIN Sodium Chloride 1,000 mls @ 25 mls/hr 11/05/23 21:45 Sod Chloride 0.9% 500ml Bag IV 11/06/23 21:43 .Q25H OLIVIA Labetalol HCl 20 mg 11/05/23 21:43 Labetalol 20mg/4ml Syringe IV 11/06/23 01:43 ONCE PRN sbp>160 Lidocaine HCl 20 ml 11/05/23 21:43 Lidocaine 1% 10ml Mdv IJ 11/05/23 21:44 ONCE ONE Lidocaine HCl 20 ml 11/05/23 21:43 Lidocaine 1% 5ml Pf Vial IJ 11/05/23 21:44 ONCE ONE Midazolam HCl 1 mg 11/05/23 21:43 Midazolam 2mg/2ml Vial IV 11/06/23 09:43 Q3MINP PRN Sedation Midazolam HCl 1 mg 11/05/23 21:43 Midazolam Hcl 1mg/1ml 5ml Vial IV 11/06/23 09:43 Q3MINP PRN Sedation Naloxone HCl 0.4 mg 11/05/23 21:43 Naloxone 0.4mg/Ml Vial IV 11/06/23 09:43 Q5MINP PRN Decreased Respirations Nitroglycerin 800 mcg 11/05/23 21:43 Nitroglycerin 800mcg/8ml Syr (Project Management Specialist) IA 11/06/23 01:43 NEEDED PRN Emergency Box Realtime Captioner Protamine Sulfate 50 mg 11/05/23 21:43 Protamine Sulfate 50mg/5ml Vial (Project Management Specialist) IV 11/06/23 01:43 ONCE PRN act>200 Verapamil HCl 2.5 mg 11/05/23 21:43 Verapamil 2.5mg/Ml 2ml Vial IV 11/05/23 21:44 ONCE ONE Discontinued Medications Generic Name Dose Route Start Last Admin Trade Name Balajiq PRN Reason Stop Dose Admin Aspirin 324 mg 11/05/23 21:25 11/05/23 21:29 Aspirin 81mg Chewable Tablet PO 11/05/23 21:26 324 mg ONCE ONE Administration Heparin Sodium (Porcine) 4,000 unit 11/05/23 21:26 11/05/23 21:29 Heparin 1,000 Units/Ml 10ml Vial (Project Management Specialist) IV 11/05/23 21:27 4,000 unit ONCE ONE Administration ORDERS Category Date Time Status CT head/brain wo con Stat Cat Scan 11/05/23 19:53 Completed Cardiology Consult [Consult to Cardiology] [CONS] Cons 11/05/23 21:08 Active Routine XR chest portable Stat Exams 11/05/23 19:53 Completed Activated Partial Thrombo Time Stat Lab 11/05/23 19:39 Completed Ammonia Stat Lab 11/05/23 19:53 Ordered Complete Blood Count Auto Diff Stat Lab 11/05/23 19:39 Completed Comprehensive Metabolic Panel Stat Lab 11/05/23 19:39 Completed Digoxin Stat Lab 11/05/23 19:39 Completed Drug Screen,Urine Stat Lab 11/05/23 19:56 Completed Prothrombin Time INR Stat Lab 11/05/23 19:39 Completed T4 (Thyroxine) Stat Lab 11/05/23 19:39 Completed Thyroid Stimulating Hormone Stat Lab 11/05/23 19:39 Completed Troponin I Q3H Lab 11/05/23 23:00 Ordered Troponin I Q3H Lab 11/06/23 02:00 Ordered Troponin I Stat Lab 11/05/23 19:39 Completed Urinalysis and Microscopic Stat Lab 11/05/23 19:26 Completed Urine Culture Stat Micro 11/05/23 19:56 Received Venous Blood Gas Stat RT 11/05/23 19:53 Completed ECG Data Tracing #1: I reviewed this ECG and interpreted as documented below: Atrial fibrillation with a ventricular rate of 57 bpm. Concerns for acute STEMI versus change related to digoxin. I did call and have discussion with cardiology immediately upon receiving the EKG who also noted this is concerning for ischemia but could be related to the medication. ECG initial impression date: 11/05/23 ECG initial impression time: 21:00 Medical Decision Narrative: In summary, this patient is a 83-year-old female presenting to the Emergency Department for evaluation of confusion that has been happening at night over the last several months as well as concerned that maybe she took too many of her medications last night. Differential diagnoses considered include but are not limited to unintentional overdose, digoxin toxicity, intracranial hemorrhage, intracranial mass, urinary tract pressure, electrolyte derangements. Ruling out the most morbid conditions drove assessment. On exam, the patient is resting comfortably with no specific concerns or complaints at this time. She is hemodynamically stable, though is mildly bradycardic. No chest pain or shortness of breath. Workup included broad evaluation including metabolic, tox, cardiac, infectious workup as well as CT scan of the head without contrast and chest x-ray. I independently interpreted CT scan and x-ray prior to the radiologist read and noted intracranial hemorrhage and no focal consolidation concerning for pneumonia. Please see their read for final interpretation. Labs were obtained that demonstrated mild hyperkalemia with potassium of 5.4 as well as concerns for urinary tract infection. Ultimately, EKG was not performed in the emergency department until 2057. Once this was handed to me, and noted significant derangements which are new from her prior EKG. She is on digoxin and thinks that she may have taken too much, so this could be related to that, however cannot exclude cardiac ischemia. Troponin came back at 0.25 as well, which is concerning. I immediately had a discussion with Dr. Glasgow with cardiology. He advised that he would like to speak with the patient and family regarding this. He advised that it could be related to digoxin, but cannot exclude ischemia. He spoke with the family and after discussion with both myself and cardiology, family is agreeable with cardiac catheterization. Given this, cardiac Project Management Specialist was activated. Patient was loaded with heparin and given oral aspirin per Dr. Glasgow. She is already on Plavix. Ultimately, patient was taken to the Project Management Specialist for catheterization in stable condition. I did have an interactive discussion with Dr. Callahan for Dr. Puente who advised that he would be happy to admit the patient. She was started on IV Rocephin for UTI as an admit order, however I feel that catheterization outweighs urgency of UTI treatment at this time. Digoxin level pending at time of transportation to Project Management Specialist. Critical Care Critical Care Time Critical Care Time: Yes Attestation: On 11/05/23, the high probability of a clinically significant, sudden or life threatening deterioration of the following system(s) required my full and direct attention, intervention and personal management. The time I documented below is in addition to time spent performing reported procedures but includes the following listed in this critical care notation. Total Time Total Critical Care Time: 30
--- NOTE | 2023-11-05 21:24 | PC.NURSE ---
Patient prepped and ready for Head Of Sales Promotion per protocol. Awaiting liaison inspection laboratory assistant arrival. Per Attending, Redrying Machine Operator has not given her orders for medications to be given at this time.
--- NOTE | 2023-11-05 21:28 | PC.NURSE ---
paged dr coker at this time.
[2023-11-05] MEDS: HEPARIN 1,000 UNITS/ML 10ML VIAL (CATH LAB) 4000 UNIT IV (21:29)
[2023-11-05] MEDS: ASPIRIN 81MG CHEWABLE TABLET 324 MG PO (21:29)
--- NOTE | 2023-11-05 21:43 | PC.NURSE ---
Campos notified that Dr. Hernandez has spoke to Dr. Callahan to admit to medicine post cath
--- NOTE | 2023-11-05 21:43 | PC.NURSE ---
Spoke with Amrita in [employer]. As soon as everyone arrives, she'll call me back for transport.
--- NOTE | 2023-11-05 21:44 | IR_ITS ---
APPROVED REPORT Patient Location: Emergent Manager Park: JERMAN Pacheco RT (R) PROCEDURES Left heart cath INDICATION ST elevation on EKG Informed consent was obtained prior to the procedure. COMPLICATIONS None Estimated Blood Loss: Less than 10 mls TECHNIQUE One percent lidocaine used to anesthetize the right anterior aspect of the wrist. The right radial artery was accessed via the Seldinger technique. A 6 Kinyarwanda sheath was placed in the right radial artery. 2.5 mg of Verapamil, 800 mcg of nitroglycerin, 1mg Lidocaine and 5000 U Heparin were given through the arterial sheath. The a 5 Kinyarwanda JL 3.5 catheter was also used to perform left heart catheterization, left ventriculogram and selective coronary angiogram. At the end of the procedure the sheath was removed good hemostasis was achieved using Traclet band, patient was transferred to the postop holding area in stable condition. ANGIOGRAPHIC RESULTS The left main artery Was a very short vessel essentially comprising of 2 separate ostium to the LAD and the circumflex. There was no significant disease in the LAD The left anterior descending artery Was a small vessel with diffuse disease. It gave rise to a large first diagonal, a large second diagonal and then wraparound apex. At the level of the first diagonal there is a 50 to 60% lesion. The first diagonal had a 60 to 70% lesion. These were unchanged from previous angiogram The circumflex artery Was a dominant vessel supplying a large first obtuse marginal and 3 PLV's. There was mild plaquing but no obstructive disease. The right coronary artery The right coronary artery was a small nondominant vessel with no obstructive disease The VERMA ventriculogram reveals Ejection fraction of greater than 70% The left ventricular end-diastolic pressure This 26. The LV pressure was 220. IMPRESSION Moderate obstructive disease unchanged. No indication of occluded vessels cause ST changes. Electronically signed by : Jorge Coker, 11/05/2023 22:43:16
--- NOTE | 2023-11-05 21:56 | PC.NURSE ---
Transported to woods laborer at 0155
[2023-11-05] MEDS: HEPARIN 1,000 UNITS/500ML NS (CATH LAB) 3000 UNIT IV (22:11)
[2023-11-05] MEDS: diphenhydrAMINE 50MG/ML VIAL 50 MG IV (22:11)
[2023-11-05] MEDS: LIDOCAINE 1% 10ML MDV 20 ML IJ (22:11)
[2023-11-05] MEDS: 0.9 % SODIUM CHLORIDE 500 ML 25 ML IV (22:11)
[2023-11-05] MEDS: NITROGLYCERIN 800MCG/8ML SYR (CATH LAB) 800 MCG IA (22:11)
[2023-11-05] MEDS: MIDAZOLAM 2MG/2ML VIAL 1 MG IV (22:33)
[2023-11-05] MEDS: IOPAMIDOL-370 (76%);100ML BOTTLE 60 ML IV (22:50)
[2023-11-06] VITALS (24 sets, daily range): BP systolic 126–163; BP diastolic 7–92; PULSE 47–93; RESP 14–18; TEMP 36.4–36.9; O2SAT 94–100; BMI 15.6; BMI 16.0
[2023-11-06 00:02] LABS: Troponin I 0.28 ng/ml (0.00-0.034)
[2023-11-06] MEDS: CEFTRIAXONE SODIUM 2 GM in 0.9 % SODIUM CHLORIDE 100 ML IV ×2 (00:20→23:47)
[2023-11-06 00:47] LABS: Reflex Lactic Add Lactic Reflex
[2023-11-06 00:53] LABS: Ammonia < 9 umol/L (9-30)
--- NOTE | 2023-11-06 01:52 | PC.NURSE ---
Patient voiced discomfort to abdomen. Patient has attempted to urinate twice on the bedpan and once on the bedside commode sense arriving on the unit. Patient states she feels like she needs to go and can't. Junior Administrative Assistant bladder scanned patient at 0130. Bladder scan showed 556cc of urine in the bladder. Patient requested to get up and sit on the bedside commode. Patient was able to urinate 200cc of clear yellow urine, no foul odor noted. Junior Administrative Assistant bladder scanned patient post void with a result of 324cc. Patient voiced to marketing writer relief, states her abdomen feels 100% better.
[2023-11-06 02:15] LABS: Lactic Acid Follow Up (RFLX 1) 1.8 mmol/L (0.7-2.1)
[2023-11-06 02:46] LABS: Troponin I 0.31 ng/ml (0.00-0.034)
[2023-11-06 06:19] LABS: Chloride 105 mmol/L (98-107); Potassium 5.3 mmoL/L (3.5-5.1); Sodium 137 mmol/L (136-145)
[2023-11-06 06:22] LABS: Anion Gap 8.3 mEq/L (5-15); Blood Urea Nitrogen 25 mg/dl (7-17); Carbon Dioxide 29 mmol/L (22.0-30.0); Creatinine Clearance Estimated 27 mL/min (50-200); Estimated Glomerular Filt Rate 60 ml/min (>60); GFR (African American) 73 ML/MIN (>60)
[2023-11-06 06:23] LABS: Calcium 9.3 mg/dl (8.4-10.2); Glucose 85 mg/dl (74-100)
[2023-11-06 06:27] LABS: Basophils # 0.1 K/mm3 (0-0.2); Basophils % 0.5 % (0.1-2.0); Eosinophils % 0.2 % (0.1-12.0); Hematocrit 39.2 % (37.0-47.0); Hemoglobin 11.5 g/dL (12.2-16.2); Lymphocytes # 1.5 K/mm3 (0.7-4.5); Lymphocytes % 11.5 % (10-50); Mean Corpuscular HGB Conc 29.5 g/dL (31.8-35.4); Mean Corpuscular Hemoglobin 23.7 pg (27.0-31.2); Mean Corpuscular Volume 80.5 fl (81-99); Mean Platelet Volume 7.8 fl (7.4-10.4); Monocytes # 1.3 K/mm3 (0.1-1.0); Monocytes % 9.9 % (1.7-9.3); Neutrophils # 10.4 K/mm3 (1.8-7.8); Neutrophils % 77.9 % (37.0-80.0); Platelet Count 269 K/mm3 (142-424); Red Blood Count 4.86 M/mm3 (4.20-5.40); Red Cell Distribution Width 18.5 % (11.5-17.5); White Blood Count 13.4 K/mm3 (4.8-10.8)
--- NOTE | 2023-11-06 07:38 | HMH.PHAINT1 ---
Pharmacy Intervention Comments: HOME MEDICATION LIST VERIFIED VIA OUTSIDE PHARMACY AND OFFICE VISIT
--- NOTE | 2023-11-06 08:29 | P.HP_ITS ---
History of Present Illness *Admission Date: 11/05/23 *Reason for visit:: memory loss, took too much medication *History of present illness: This patient is an 83-year-old female with history of atrial fibrillation on digoxin, hypertrophic cardiomyopathy, CAD, carotid stenosis, hypertension, hyperlipidemia, GERD, aortic insufficiency, and COPD presenting with concern for months of confusion that typically happens at night. Patient reports that at night, she will do things that she does not remember. She will wake up and call people, including calling 911 thinking that she had someone in her house the other night. She also notes that she got up last night and apparently had taken her medications for today all at 12:30 AM last night. She does not remember doing that, but her family member told her that she did. She notes that all day today, she has been off. She believes this is related to taking too many of her medications. She denies any other concerns, such as fevers, chills, chest pain, shortness of breath, abdominal pain, nausea, vomiting, change in bowel movements , rashes, or swelling. She denies any headaches or neurologic symptoms, but she does note that she has had chronic visual changes related to cataract surgery. On exam, the patient is resting comfortably with no specific concerns or complaints at this time. She is hemodynamically stable, though is mildly bradycardic. No chest pain or shortness of breath. Workup included broad evaluation including metabolic, tox, cardiac, infectious workup as well as CT scan of the head without contrast and chest x-ray. I independently interpreted CT scan and x-ray prior to the radiologist read and noted intracranial hemorrhage and no focal consolidation concerning for pneumonia. Please see their read for final interpretation. Labs were obtained that demonstrated mild hyperkalemia with potassium of 5.4 as well as concerns for urinary tract infection. Ultimately, EKG was not performed in the emergency department until 2057. Once this was handed to me, and noted significant derangements which are new from her prior EKG. She is on digoxin and thinks that she may have taken too much, so this could be related to that, however cannot exclude cardiac ischemia. Troponin came back at 0.25 as well, which is concerning. I immediately had a discussion with Dr. Glasgow with cardiology. He advised that he would like to speak with the patient and family regarding this. He advised that it could be r elated to digoxin, but cannot exclude ischemia. He spoke with the family and after discussion with both myself and cardiology, family is agreeable with cardiac catheterization. Given this, cardiac Legal Billing Analyst was activated. Patient was loaded with heparin and given oral aspirin per Dr. Glasgow. She is already on Plavix. Ultimately, patient was taken to the Legal Billing Analyst for catheterization in stable condition. I did have an interactive discussion with Dr. Callahan for Dr. Puente who advised that he would be happy to admit the patient. She was started on IV Rocephin for UTI as an admit order, however I feel that catheterization outweighs urgency of UTI treatment at this time. Digoxin level pending at time of transportation to [facility] Billing [facility]st. (above as per ER physician) Patient's daughter states she lives by herself and normally does well, but she has been more confused over the past week and a half and it is getting worse. She was seen in the office by Dr. Callahan yesterday and was started on oral abx for a UTI. He also felt she had PAD and he got a CT angiogram scheduled in [facility] next week. Her daugther states they decided to bring her to the ER because her mental status was worsening. [facility] Disclaimer: The information contained in this section may have been updated after the patient was seen, as this information can be updated by other users. Medical History Smoking greater than 30 pack years COPD mixed type Pleural effusion Syncope Hypokalemia COPD exacerbation Fall at home Pulmonary edema Adverse effect of antiplatelet agent Acute lower gastrointestinal bleeding Ischemic bowel disease Diarrhea Epigastric pain Chest pain Gastroesophageal reflux disease Presence of Watchman left atrial appendage closure device Angina, class II Aortic insufficiency Elevated troponin TIA (transient ischemic attack) Rapid atrial fibrillation Atrial fibrillation with RVR Anxiety Dyspnea Bilateral carotid artery stenosis Stress reaction Palpitations Blood loss anemia Abdominal pain Apical variant hypertrophic cardiomyopathy Burning with urination Constipation 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 Paroxysmal atrial fibrillation CAD (coronary artery disease) New onset a-fib HOCM (hypertrophic obstructive cardiomyopathy) Carotid artery stenosis Pulmonary HTN Diastolic dysfunction Subclavian artery stenosis, right Hyperlipidemia Hypertension NSTEMI (non-ST elevated myocardial infarction) Anxiety disorder Tobacco abuse Arteriosclerotic cardiovascular disease Surgical History History of colonoscopy History of right heart catheterization (RHC) History of appendectomy History of cholecystectomy History of hysterectomy Status post carotid endarterectomy Family History Diabetes Coronary artery disease Family history of diabetes mellitus type II Family history of myocardial infarction Cancer Hypertension Stroke Social History Smoking Status: Current every day smoker tobacco type: cigarettes packs per day: 1 alcohol intake: never substance use type: denies use current occupational status: retired Travel in the last 8 weeks: None household members: none housing: house lives independently: Yes marital status: single education level: middle school service: No caffeine: No special fanny needs: No agree to transfusion: No do you feel safe at home: Yes victim of physical abuse: No victim of emotional abuse: No victim of sexual abuse: No would you like helpful sources: No Review of Systems Constitutional Constitutional: Reports body ache(s), Reports fatigue, Reports headache(s), Reports lethargy, Reports malaise and Reports weakness Eyes Eyes: Denies blurry vision and Denies diplopia ENT Ears, Nose, Mouth, and Throat: Reports headache(s) and Reports vertigo *Cardiovascular Cardiovascular: Denies chest pain, Reports dyspnea and Reports lightheadedness *Respiratory Respiratory: Reports cough and Reports dyspnea *Gastrointestinal Gastrointestinal: Reports abdominal pain (lower abdomen), Denies loose stools, Reports nausea and Denies vomiting *Genitourinary Genitourinary: Reports difficulty voiding and Reports dysuria *Musculoskeletal Musculoskeletal: Reports arthralgias (knees and feet), Reports muscle weakness and Reports myalgias Integumentary/Breasts Skin/Breast: Reports wounds (left knee and left toes) and Denies breast skin changes *Neurologic Neurologic: Reports headache(s), Reports vertigo and Reports weakness Endocrine Endocrine: Reports fatigue Meds Home Medications and Allergies Home Medications Medication Instructions Recorded Confirmed Type gabapentin 100 mg capsule 100 mg PO HS 04/21/19 11/05/23 History atorvastatin 10 mg tablet 10 mg PO Q48H Cholesterol 05/05/19 11/05/23 History aspirin 81 mg tablet,delayed 81 mg PO DAILY 07/26/19 11/05/23 History release acetaminophen 650 mg 650 mg PO BID 11/13/20 11/05/23 History tablet,extended release buspirone 10 mg tablet 10 mg PO TID Anxiety 11/13/20 11/05/23 History furosemide 20 mg tablet 20 mg PO DAILY 09/11/21 11/05/23 History diltiazem HCl 180 mg 180 mg PO DAILY 03/09/22 11/05/23 History capsule,extended release 24 hr, controlled potassium chloride 10 mEq 10 meq PO BID 02/26/23 11/06/23 History capsule,extended release clopidogrel 75 mg tablet 75 mg PO DAILY Platelet Inhibitor 07/17/23 11/05/23 History dicyclomine 20 mg tablet 10 mg PO QIDP PRN Stomach cramps 07/17/23 11/05/23 History fluticasone propionate 50 50 mcg intranasal BIDP PRN 07/17/23 11/05/23 History mcg/actuation nasal Allergic Symptoms spray,suspension (Flonase Allergy Relief) metoprolol succinate 50 mg 50 mg PO DAILY 07/17/23 11/05/23 History tablet,extended release 24 hr ipratropium 0.5 mg-albuterol 3 mg 3 ml inhalation QID PRN shortness 08/25/23 11/06/23 Rx (2.5 mg base)/3 mL nebulization of breath or wheezing 90 days #90 soln mL digoxin 250 mcg (0.25 mg) tablet 250 mcg PO DAILY #30 tabs 09/01/23 11/05/23 Rx pantoprazole 40 mg tablet,delayed 40 mg PO DAILYP PRN Acid Reflux 11/06/23 11/05/23 History release spironolactone 25 mg tablet 25 mg PO DAILY 11/06/23 11/06/23 History tiotropium bromide 2.5 2 puff inhalation DAILY 11/06/23 11/06/23 History mcg/actuation mist for inhalation (Spiriva Respimat) New Prescriptions to Start Prescriptions: Allergies Allergy/AdvReac Type Severity Reaction Status Date / Time beef derived (bovine) Allergy Unknown Verified 10/02/23 13:38 allergy reaction lactose Allergy Unknown Verified 10/02/23 13:38 allergy reaction Penicillins Allergy Unknown Verified 10/02/23 13:38 allergy reaction Sulfa (Sulfonamide Allergy Verified 10/02/23 13:38 Antibiotics) Exam Data for Last 24 hours Vital signs and Labs for Last 24 Hours: Temp Pulse Resp BP Pulse Ox O2 Del Method 97.8 F 70 18 150/71 H 97 Room Air 11/06/23 08:00 11/06/23 08:00 11/06/23 08:00 11/06/23 08:00 11/06/23 08:00 11/06/23 08:00 Laboratory Results - last 24 hr 11/05/23 19:26: Urine Color Yellow, Urine Appearance Clear, Urine pH 6.0, Ur Sp ecific [place] 1.015, Urine Protein Negative, Urine Glucose (UA) Negative, Urine Ketones Negative, Urine Blood Negative, Urine Nitrate Positive, Urine Bilirubin Negative, Urine Urobilinogen 0.2, Ur Leukocyte Esterase 2+ A, Urine RBC None, Urine WBC 5-10, Ur Squamous Epith Cells 3-5, Ur Transition Epith Cell Occ, Urine Bacteria 2+ 11/05/23 19:39: WBC 10.9 H, RBC 5.26, Hgb 12.7, Hct 42.3, MCV 80.4 L, MCH 24.1 L , MCHC 30.0 L, RDW 18.4 H, Plt Count 300, MPV 8.7, Neut % (Auto) 78.9, Lymph % (Auto) 11.8, [place] % (Auto) 7.6, Eos % (Auto) 0.1, Baso % (Auto) 1.5, Neut # (Auto) 8.6 H, Lymph # (Auto) 1.3, [place] # (Auto) 0.8, Eos # (Auto) 0.0, Baso # (Auto) 0.2, PT 10.6, INR 0.98, APTT 25.4, Sodium 135 L, Potassium 5.4 H, Chloride 101, Carbon Dioxide 30, Anion Gap 9.4, BUN 29 H, Creatinine 1.00, Estimated Creat Clear 30, Estimated GFR 53 L, Est GFR ( Amer) 64, Glucose 112 H, Calcium 9.9, Total Bilirubin 0.7, AST 25, ALT 23, Alkaline Phosphatase 130 H, Troponin I 0.25 H, Total Protein 7.0, Albumin 4.1, Globulin 2.9, Albumin/Globulin Ratio 1.4, TSH 0.76, Thyroxine (T4) 9.3, Digoxin 6.00 H* 11/05/23 19:53: VBG pH 7.36, VBG pCO2 46.3, VBG pO2 37.8, VBG HCO3 25.3, VBG Total CO2 26.7, VBG O2 Saturation 68.7, VBG Base Excess -0.3, VBG Lactic Acid 2.4 H 11/05/23 19:56: Urine Opiates Screen Negative, Urine Methadone Screen Negative, Ur Barbituates Screen Negative, Ur Phencyclidine Scrn Negative, Ur Amphetamines Screen Negative, U Benzodiazepines Scrn Negative, Urine Cocaine Screen Negative, U Marijuana (THC) Screen Negative 11/05/23 23:20: Ammonia < 9 L, Troponin I 0.28 H 11/06/23 02:00: Lactate 1.8, Troponin I 0.31 H 11/06/23 06:04: WBC 13.4 H, RBC 4.86, Hgb 11.5 L, Hct 39.2, MCV 80.5 L, MCH 23.7 L, MCHC 29.5 L, RDW 18.5 H, Plt Count 269, MPV 7.8, Neut % (Auto) 77.9, Lymph % (Auto) 11.5, [place] % (Auto) 9.9 H, Eos % (Auto) 0.2, Baso % (Auto) 0.5, Neut # (Auto) 10.4 H, Lymph # (Auto) 1.5, [place] # (Auto) 1.3 H, Eos # (Auto) 0.0, Baso # (Auto) 0.1, Sodium 137, Potassium 5.3 H, Chloride 105, Carbon Dioxide 29, Anion Gap 8.3, BUN 25 H, Creatinine 0.90, Estimated Creat Clear 27, Estimated GFR 60, Est GFR ( Amer) 73, Glucose 85 D, Calcium 9.3, Digoxin 5.90 H* I & O for Last 24 hours: Intake & Output 11/03/23 11/04/23 11/05/23 11/06/23 11:59 11:59 11:59 11:59 Intake Total 120 / 120 Output Total 150 / 150 Balance -30 / -30 Weight 85 lb Constitutional Constitutional: no acute distress (confused) *Routine HEENT Exam Head: Present normocephalic and atraumatic Eye: Present EOMI and PERRL ENT: Present mucous membranes dry *Routine Neck Exam Neck: Present supple and full ROM *Routine Respiratory Exam Respiratory: Present CTA bilaterally; Absent rales or wheezes *Routine Cardiovascular Exam Cardiovascular: Present RRR *Routine Abdominal Exam Abdominal: Present soft, normoactive bowel sounds, tenderness (suprapubic area) and distended (over bladder) *Routine Rectal Exam Rectal:: deferred *Routine Genitalia Exam Genitalia:: deferred *Routine Extremities Exam Extremities: Absent edema *Routine Skin Exam Skin: Present wounds Comments: Left knee with large scabbed over wound and surrounding erythema, there are also wounds on toes as well on the left foot *Routine Neurological Exam Neurological: Present altered mental status (can answer some questions but very confused) H&P: Result Impressions CXR - nothing acute Head CT - nothing acute Cardiac Cath - Moderate obstructive disease unchanged. No indication of occluded vessels cause ST changes. Assessment and Plan *Assessment and plan (1) Accidental digoxin overdose: Status: Acute Category: Medical Code(s): T46.0X1A - Poisoning by cardiac-stimulant glycosides and drugs of similar action, accidental (unintentional), initial encounter (2) Acute UTI: Status: Acute Category: Medical Code(s): N39.0 - Urinary tract infection, site not specified (3) Urinary retention: Status: Acute Category: Medical Code(s): R33.9 - Retention of urine, unspecified (4) Leg wound, left: Status: Acute Category: Medical Code(s): S81.802A - Unspecified open wound, left lower leg, initial encounter (5) Abnormal EKG: Status: Acute Category: Medical Code(s): R94.31 - Abnormal electrocardiogram [ECG] [EKG] (6) Altered mental status: Status: Acute Category: Medical Code(s): R41.82 - Altered mental status, unspecified (7) Smoking greater than 30 pack years: Status: Acute Category: Social Hx Code(s): F17.210 - Nicotine dependence, cigarettes, uncomplicated (8) COPD mixed type: Status: Acute Category: Medical Code(s): J44.9 - Chronic obstructive pulmonary disease, unspecified (9) Presence of Watchman left atrial appendage closure device: Status: Chronic Category: Medical Code(s): Z95.818 - Presence of other cardiac implants and grafts (10) Apical variant hypertrophic cardiomyopathy: Status: Chronic Category: Medical Code(s): I42.2 - Other hypertrophic cardiomyopathy (11) senior care current use of anticoagulant: Status: Chronic Category: Medical Code(s): Z79.01 - senior care (current) use of anticoagulants (12) CAD (coronary artery disease): Status: Chronic Qualifiers: Associated angina: without angina Coronary Disease-Associated Ar penelope/Lesion type: [place] artery [place] vs. transplanted heart: [place] heart Qualified Code(s): I25.10 - Atherosclerotic heart disease of [place] coronary artery without angina pectoris Category: Medical Code(s): I25.10 - Atherosclerotic heart disease of [place] coronary artery without angina pectoris (13) HOCM (hypertrophic obstructive cardiomyopathy): Status: Chronic Category: Medical Code(s): I42.1 - Obstructive hypertrophic cardiomyopathy (14) Pulmonary HTN: Status: Chronic Category: Medical Code(s): I27.20 - Pulmonary hypertension, unspecified (15) Hypertension: Status: Chronic Qualifiers: Hypertension type: essential hypertension Qualified Code(s): I10 - Essential (primary) hypertension Category: Medical Code(s): I10 - Essential (primary) hypertension (16) Hyperlipidemia: Status: Chronic Qualifiers: Hyperlipidemia type: mixed hyperlipidemia Qualified Code(s): E78.2 - Mixed hyperlipidemia Category: Medical Code(s): E78.5 - Hyperlipidemia, unspecified (17) Gastroesophageal reflux disease: Status: Chronic Qualifiers: Esophagitis presence: esophagitis presence not specified Qualified Code(s): K21.9 - Gastro-esophageal reflux disease without esophagitis Category: Medical Code(s): K21.9 - Gastro-esophageal reflux disease without esophagitis (18) Status post carotid endarterectomy: Status: Chronic Category: Surgical Code(s): Z98.890 - Other specified postprocedural states (19) Anxiety disorder: Status: Chronic Category: Medical Code(s): F41.9 - Anxiety disorder, unspecified Plan Patient's heart cath was normal. She likely has PAD and cardiology is planning to get ZORA's as they do not want to expose her to more contrast right now if possible. They are also going to get an Echo. She has been started on rocephin for UTI. Will place a palma due to urinary retention. Abnormal EKG was likely due to digoxin toxicity. Cardiology to follow. Will discuss further care with Dr. Puente. Will also get a covid/flu as she says she has developed a cough and some SOA.
--- NOTE | 2023-11-06 08:48 | US_ITS ---
FINAL REPORT CLINICAL HISTORY: PAD,CLAUDICATION,REST PAIN,HTN,SMOKER,CAD,HTN,HLD,WOUNDS LT TOES AND LT KNEE COMPARISON: None FINDINGS: ANKLE-BRACHIAL PRESSURE INDICES Pressure indices are as follows: RIGHT LOWER EXTREMITY: Ankle-brachial pressure index: 0.67 Comments: Moderate disease LEFT LOWER EXTREMITY: Ankle-brachial pressure index: 0.36 Comments: Severe disease IMPRESSION: Obstructive peripheral vascular disease of the lower extremities, moderate on the right and severe on the left. Reviewed, Interpreted and Dictated by Doug Thomas III, MD Transcribed by Balbina Priest Authenticated and [facility]
--- NOTE | 2023-11-06 08:49 | CA_ITS ---
APPROVED REPORT EXAM: Comprehensive 2D, Doppler, and color-flow Echocardiogram Dyed Yarn Operator: Irish Braxton RVT Ht: 5 ft 1 in Wt: 85lbs BSA: 1.31 BP: 150/71 mmHg Indications: AMS,A-FIB,WATCHMAN,PHTN,CAD,CM,CHF,COPD,PALPS,SMOKER,HTN,HLD TDS-LIMITED WIMDOWS R/T PT BODY HABITUS M-Mode Dimensions RVDd 1.21 cm (0.9-2.6) LA Diam 3.75 cm (1.9-4.0) LVDd 3.39 cm (3.5-5.7) LVDs 2.25 cm (3.5-5.7) IVSd 1.43 cm (0.6-1.1) PWd 0.71 cm (0.6-1.1) EF (Teich) 63.70% FS 33.60% EDV (Teich) 47.10 mL ESV (Teich) 17.10 mL LV Diastology E Decel Time 187 (160-240 msec) E/A Ratio 3.0 Aortic Valve KARTHIK Index 2.65 cm2/m2 AoV Peak Gregorio. 160.0 (50-130 cm/s) AI PHT 749.00 ms AO Peak GR. 10.30 mmHg AO Mean GR. 4.40 (<5 mmHg) AO VTI 19.6 (18-25 cm) KARTHIK (VTI) 3.55 (2.5-4.5 cm2) Mitral Valve MV E Max Gregorio. 84.0 (40-130 cm/s) MV A Velocity 28.0 (40-130 cm/s) E/A Ratio 3.05 MV PHT 55.0 ms Pulmonary Valve PV Peak Velocity 90.0 (50-150 cm/s) Tricuspid Valve TR P. Velocity 442.00 cm/s RAP Estimate 10.00 mmHg RVSP 88.10 mmHg Left Ventricle The left ventricle is normal size. The left ventricular systolic function is normal. The left ventricular ejection fraction is within the normal range. There is increased LV wall thickness. The septum appears asynchronous. LVEF is 55%. Diastolic function is indeterminate due to atrial fibrillation. Right Ventricle Right ventricle is mildly dilated. The right ventricular systolic function is mildly reduced. Atria The left atrium is severely dilated. The right atrium is severely dilated. There is no Doppler evidence of interatrial shunt. Lipomatous hypertrophy of the interatrial septum is noted. Aortic Valve The aortic valve is mildly thickened. There is no aortic valvular stenosis. Mild aortic regurgitation. Mitral Valve The mitral valve leaflets are mildly thickened. No evidence of mitral valve stenosis. There is no mitral valve regurgitation noted. Tricuspid Valve The tricuspid valve leaflets are thin and pliable. Moderate tricuspid regurgitation. RVSP is 50-55 mmHg. Pulmonic Valve The pulmonary valve is normal in structure. Mild pulmonic regurgitation. Great Vessels The aortic root is normal in size. The ascending aorta is normal in size. IVC is normal in size and collapses >50% with inspiration. Pericardium There is no pericardial effusion. Other Information Study Quality: Technically Difficult Conclusion Technically difficult study due to poor acoustic windows. Normal LV systolic function. Mild RV dilation with mild reduction in RV function. Severe biatrial dilation. Mild AI, mild PI. Moderate TR. Markedly elevated RVSP 50-55 mmHg. Electronically signed by : Michaela Lowery MD 11/10/2023 00:18:50
--- NOTE | 2023-11-06 09:22 | EXP.CARD.PN ---
Subjective Subjective Date: 11/06/23 Time: 08:00 Interval history: This is a 83-year-old white female with past medical history of coronary artery disease status post medical management heart cath in 2020, hypertension, hyperlipidemia, carotid artery stenosis with a history of right and left endarterectomy, CVA, PAD, right subclavian stenting, celiac stenting, apical HOCM and chronic A-fib on digoxin status post watchman's procedure who presented to emergency department with daughter for complaints of increased confusion in the last few months and a possible medication error, concern patient accidentally took double the medication she is suppose to which includes digoxin. Upon arrival to emergency department labs were as follow: WBC 10.9, hemoglobin 12.7, sodium 135, potassium 4.3, creatinine 1, troponin 0.25 trending up to 0.31 and urinalysis concerning for UTI in which patient was already started on abx per primary doctor earlier yesterday. Initial digoxin level was 6. EKG obtained showed atrial fibrillation with a slow ventricular response at a rate of [address] depression concerning for acute OR. Cardiology was consulted and taken to [facility] to rule out ischemia secondary to EKG changes. Left heart catheterization revealed unchanged moderate obstructive disease with no indication of occluded vessel causing ST changes. Patient was admitted to primary service for further evaluation. This morning patient is resting comfortably in bed denies any chest pain or shortness of breath. Daughter reports that Dr. Callahan recently was concerned about worsening peripheral artery disease and has ordered an outpatient CT angiogram to further evaluate which is pending. Morning labs have been reviewed and echocardiogram is pending. Exam Data for Last 24 hours Vital signs and Labs for Last 24 Hours: Temp Pulse Resp BP Pulse Ox O2 Del Method 97.8 F 70 18 150/71 H 97 Room Air 11/06/23 08:00 11/06/23 08:00 11/06/23 08:00 11/06/23 08:00 11/06/23 08:00 11/06/23 08:00 Laboratory Results - last 24 hr 11/05/23 19:26: Urine Color Yellow, Urine Appearance Clear, Urine pH 6.0, Ur Specific [place] 1.015, Urine Protein Negative, Urine Glucose (UA) Negative, Urine Ketones Negative, Urine Blood Negative, Urine Nitrate Positive, Urine Bilirubin Negative, Urine Urobilinogen 0.2, Ur Leukocyte Esterase 2+ A, Urine RBC None, Urine WBC 5-10, Ur Squamous Epith Cells 3-5, Ur Transition Epith Cell Occ, Urine Bacteria 2+ 11/05/23 19:39: WBC 10.9 H, RBC 5.26, Hgb 12.7, Hct 42.3, MCV 80.4 L, MCH 24.1 L, MCHC 30.0 L, RDW 18.4 H, Plt Count 300, MPV 8.7, Neut % (Auto) 78.9, Lymph % (Auto) 11.8, [place] % (Auto) 7.6, Eos % (Auto) 0.1, Baso % (Auto) 1.5, Neut # (Auto) 8.6 H, Lymph # (Auto) 1.3, [place] # (Auto) 0.8, Eos # (Auto) 0.0, Baso # (Auto) 0.2, PT 10.6, INR 0.98, APTT 25.4, Sodium 135 L, Potassium 5.4 H, Chloride 101, Carbon Dioxide 30, Anion Gap 9.4, BUN 29 H, Creatinine 1.00, Estimated Creat Clear 30, Estimated GFR 53 L, Est GFR ( Amer) 64, Glucose 112 H, Calcium 9.9, Total Bilirubin 0.7, AST 25, ALT 23, Alkaline Phosphatase 130 H, Troponin I 0.25 H, Total Protein 7.0, Albumin 4.1, Globulin 2.9, Albumin/Globulin Ratio 1.4, TSH 0.76, Thyroxine (T4) 9.3, Digoxin 6.00 H* 11/05/23 19:53: VBG pH 7.36, VBG pCO2 46.3, VBG pO2 37.8, VBG HCO3 25.3, VBG Total CO2 26.7, VBG O2 Saturation 68.7, VBG Base Excess -0.3, VBG Lactic Acid 2.4 H 11/05/23 19:56: Urine Opiates Screen Negative, Urine Methadone Screen Negative, Ur Barbituates Screen Negative, Ur Phencyclidine Scrn Negative, Ur Amphetamines Screen Negative, U Benzodiazepines Scrn Negative, Urine Cocaine Screen Negative, U Marijuana (THC) Screen Negative 11/05/23 23:20: Ammonia < 9 L, Troponin I 0.28 H 11/06/23 02:00: Lactate 1.8, Troponin I 0.31 H 11/06/23 06:04: WBC 13.4 H, RBC 4.86, Hgb 11.5 L, Hct 39.2, MCV 80.5 L, MCH 23.7 L, MCHC 29.5 L, RDW 18.5 H, Plt Count 269, MPV 7.8, Neut % (Auto) 77.9, Lymph % (Auto) 11.5, [place] % (Auto) 9.9 H, Eos % (Auto) 0.2, Baso % (Auto) 0.5, Neut # (Auto) 10.4 H, Lymph # (Auto) 1.5, [place] # (Auto) 1.3 H, Eos # (Auto) 0.0, Baso # (Auto) 0.1, Sodium 137, Potassium 5.3 H, Chloride 105, Carbon Dioxide 29, Anion Gap 8.3, BUN 25 H, Creatinine 0.90, Estimated Creat Clear 27, Estimated GFR 60, Est GFR ( Amer) 73, Glucose 85 D, Calcium 9.3, Digoxin 5.90 H* I & O for Last 24 hours: Intake & Output 11/03/23 11/04/23 11/05/23 11/06/23 23:59 23:59 23:59 23:59 Intake Total 120 / 120 Output Total 150 / 150 Balance -30 / -30 Weight 94 lb 85 lb Constitutional Constitutional: no acute distress *Routine Respiratory Exam Respiratory: Present CTA bilaterally and symmetric chest movement *Routine Cardiovascular Exam Cardiovascular: Present RRR, Normal S1 and Normal S2 *Routine Abdominal Exam Abdominal: Present soft and normoactive bowel sounds; Absent tenderness *Routine Extremities Exam Extremities: Absent edema Comments: Bilateral legs are pale and warm, bilateral pulses present but weak. Eschar like wound noted on left knee with mild erythema surrounding area. Small necrotic wounds noted to distal 3rd, 4th and 5th digits on left food. 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: Status: Chronic (11) care home current use of anticoagulant: Status: Chronic (12) CAD (coronary artery disease): Status: Chronic (13) HOCM (hypertrophic obstructive cardiomyopathy): Status: Chronic (14) Pulmonary HTN: Status: Chronic (15) Hypertension: Status: Chronic (16) Hyperlipidemia: Status: Chronic (17) Gastroesophageal reflux disease: Status: Chronic (18) Status post carotid endarterectomy: Status: Chronic (19) Anxiety disorder: Status: Chronic Assessment and Plan Assessment and Plan for All Diagnoses:: History of coronary artery disease EKG concerning for acute OR in the setting of digoxin toxicity Digoxin toxicity -Left heart cath 11/06/2023: Moderate obstructive disease without occluded vessels causing ST changes -Continue aspirin 81 mg p.o. daily and, Plavix 75 mg daily, high-dose statin and metoprolol succinate at increased dose of 100 mg daily -Hold digoxin, give DigiFab for reversal. -Initial digoxin level 6 trending down to 5.9 today Vasculopath Concern for worsening PAD -Carotid artery stenosis-20 to 49% KALYAN, 20 to 49% LICA October 2020. Patient is status post right and left endarterectomy. -History of right subclavian stent in 2018 -History of celiac stenting 2021 -Family endorses recent worsening bilateral leg pain with wounds noted to left knee and toes. Has been scheduled for an outpatient CT angiogram to further evaluate. Will obtain ZORA today. 11/05/2022: ZORA: Moderate arterial disease noted to right leg and severe disease noted to left leg. Recommend patient remains inpatient over the weekend and undergoes angiogram in [facility] on Friday for further evaluation and treatment of PAD. Patient on aspirin, plavix and statin, will continue. Chronic A-fib Status post Watchman device -Hold digoxin due to digoxin toxicity -Increase home dose of metoprolol to 100 mg p.o. daily -Continue diltiazem 180 mg daily History of HFpEF Mildly to moderate dilated RV with mild reduction of RV function Severe biatrial dilation Moderate TR and DE Elevated RVSP greater than 60 Hx of apical HOCM -No signs of volume overload noted -Repeat echocardiogram pending -Continue Lasix 20 mg daily and Aldactone 25 mg daily. No Jardiance currently due to UTI -Previously has declined a cardiac MRI to further evaluate HOCM 11/06/2023: Echocardiogram is pending. ZORA reveals moderate disease to right leg and severe disease noted to the left leg, official report is pending. If patient remains in the hospital over the weekend then will undergo angiogram with runoff in the [facility] on Friday for further evaluation/intervention for PAD. If DC home before Friday, then will scheduled as outpatient early next week. Continue to hold digoxin and will administer DigiFab for reversal.
[2023-11-06 09:35] LABS: Coronavirus 19, PCR Not Detected (NotDetected); Influenza A, PCR Not Detected (NotDetected); Influenza B, PCR Not Detected (NotDetected)
[2023-11-06] MEDS: DIGOXIN IMMUNE FAB IV (11:12)
[2023-11-06] MEDS: SODIUM CHLORIDE 0.9% IV (11:12)
[2023-11-06] MEDS: METOPROLOL SUCCINATE XL 100MG TABLET 100 MG PO (11:24)
[2023-11-06] MEDS: CLOPIDOGREL 75MG TAB 75 MG PO (11:24)
[2023-11-06] MEDS: FUROSEMIDE 20MG TABLET 20 MG PO ×2 (11:24→15:12)
[2023-11-06] MEDS: SPIRONOLACTONE 25MG TABLET 25 MG PO (11:24)
[2023-11-06] MEDS: dilTIAZem HCL 180MG CAP.ER.24H 180 MG PO (11:24)
[2023-11-06] MEDS: ASPIRIN EC 81MG TABLET 81 MG PO (11:36)
--- NOTE | 2023-11-06 12:00 | PC.NURSE ---
PT TOLERATED DIGI MIRIAM INFUSION WELL. NO ACUTE CHANGES. VSS.
[2023-11-06] MEDS: ALUMINUM/MAGNESIUM/SIMETHICONE 30ML UDC 30 ML PO (12:10)
[2023-11-06 12:27] LABS: Potassium 5.4 mmoL/L (3.5-5.1)
[2023-11-06] MEDS: BUSPIRONE HCL 10 MG TABLET PO ×2 (13:23→21:52)
[2023-11-06 13:32] LABS: Potassium 5.1 mmoL/L (3.5-5.1)
--- NOTE | 2023-11-06 14:49 | HMH.OTEV ---
OT Inpatient Evaluation Rehab OT IP Evaluation Start: 11/06/23 14:23 Freq: ONCE Status: Active Protocol: Document 11/06/23 14:42 [facility] (Rec: 11/06/23 14:49 [facility] [id number]) Rehab OT IP Assessment Subjective History Pt oriented x 3 on arrival. Pt agreeable to engage in therapy evaluation. Pt admitted on 11/05/23 due to confusion and memory loss. History and physical report: This patient is an 83-year-old female with history of atrial fibrillation on digoxin, hypertrophic cardiomyopathy, CAD, carotid stenosis, hypertension, hyperlipidemia, GERD, aortic insufficiency, and COPD presenting with concern for months of confusion that typically happens at night. Patient reports that at night, she will do things that she does not remember. She will wake up and call people, including calling 911 thinking that she had someone in her house the other night. She also notes that she got up last night and apparently had taken her medications for today all at 12:30 AM last night. She does not remember doing that, but her family member told her that she did. She notes that all day today, she has been off. She believes this is related to taking too many of her medications. She denies any other concerns, such as fevers, chills, chest pain, shortness of breath, abdominal pain, nausea, vomiting, change in bowel movements, rashes, or swelling. She denies any headaches or neurologic symptoms, but she does note that she has had chronic visual changes related to cataract surgery. Subjective I live alone. Prior to being in the hospital , pt lived alone. Pt claims normally she is independent with dressing and feeding. However she did require assistance with bathing. Her family would normally assist with bathing 3x's a week. She was independent with sponge baths. However, she was dependent on family for completion of all IADLs such as cleaning, cooking, laundry, etc. Pt was normally able to complete functional transfers independently with rolling walker. Family very supportive and provides a lot of assist when needed. Objective Patient Orientation Person,Place,Birthday Right Upper Extremity Gross ROM WFL Left Upper Extremity Gross ROM WFL Bed Mobility bed mobility-scooting,bed mobility - supine/sit Assist Level Contact Guard/Hand Hold Transfer Training Sit/Stand Transfer Assist Level Minimal x 1 (25% assist) Rehab OT IP prob,goals,plan Problems Date of Evaluation: 11/06/23 OT IP Problems Bed Mobility,Transfers,Balance ,Self care,Safety Rehab Potential Rehab Potential Good Equipment Needs Assistive Devices Rolling / Wheeled Walker Plan OT intervention Plan Bed Mobility,Transfers,Balance ,Self care,Safety,Therapeutic Exercise OT Plan Frequency Daily Duration LOS Discharge Goals Bed Mobility Ability Standby Assistance Sit to Stand Chair Transfer Ability Contact Guard/Hand Hold Chair Transfer Ability Contact Guard/Hand Hold Chair Transfer Technique Sit to/from Ambulatory Chair Transfer Assistive Devices Rolling Walker Feeding Ability Assist with Tray Set Up Lower Body Dressing Ability Minimal Assistance Upper Body Dressing Ability Contact Guard Bathing Ability Minimal Assistance Overall Commode/Toilet Transfer Ability Contact Guard Commode/Toilet Transfer Technique Sit to/from Ambulatory Commode/Toilet Transfer Assistive Grab Bars Devices Oral Care Assist Contact Guard Decrease in Endurance Yes Discharge Plan OT Discharge Plan Pt will continue to be seen for OT services while at [facility]. Pt can return home once medically stable per physicians with family assistance. Upon returning home, therapist recommends OT evaluation for continued skilled therapy. Eval Complexity Eval Charge Codes 19254 - Moderate Complexity PHYSICIAN CERTIFICATION: I certify the specified therapy services for Suri Banks are required, authorized, and reviewed every 30 days.
--- NOTE | 2023-11-06 14:51 | SW/DCPLANNER ---
Addendum entered by [facility] 11/12/23 10:58: [facility] can accept this patient SNF level of care today. Addendum entered by [facility] 11/12/23 09:21: Updated information has been faxed to [facility]. Addendum entered by [facility] 11/11/23 15:47: [facility] is not able to offer a plan till definitive plan is in place per wound care and Dr Puente. Donald w/ wound will re evaluate patient today and I will follow up w/ Dr Puente notes in the AM. Addendum entered by [facility] 11/10/23 15:43: I have updated [facility] that patient will not have Cardiology intervention till tomorrow. Updated patient information has been faxed. Addendum entered by [facility] 11/10/23 08:28: Terri w/ [facility] denied this patient. Kamla cox/ [facility] did confirm that they can accept this patient but not till day after procedure. Addendum entered by [facility] 11/07/23 11:45: Sadiq cox/ [facility] stated that he can accept this patient once medically stable for discharge. Sadiq is checking w/ main office to see if he can accept this patient same day of procedure or if she must wait till day after procedure. I will continue to follow up w/ Sadiq and patient/family. Patient will not be ready for discharge till Friday at the earliest. Addendum entered by [facility] 11/07/23 10:21: Per Dr Puente: Cardiology can not do procedure today and patient will stay admitted through weekend w/ intervention scheduled for Friday. I have updated Sadiq cox/ [facility] and patient/family. [facility] will still onsite evaluate patient this AM. Addendum entered by [facility] 11/07/23 09:51: [facility] will be onsite to evaluate patient today. Per Dr Puente the plan is for Cardiology to do intervention today and if all goes well patient would be medically stable for discharge to SNF tomorrow. I will continue to follow up w/ [facility], patient/family and MD. Original Note: I spoke w/ patient and her family regarding plans once medically stable for discharge. Patient stated that she currently resides at home alone. PT/OT evaluated patient and recommended SNF level of care or home health. Patient stated that at this time she would prefer placement. Patient is agreeable to placement at [facility] or [facility]: patient information has been faxed to both facilities. I will follow up w/ information once reviewed by facilities. Discharge date is unknown at this time.
--- NOTE | 2023-11-06 15:00 | HMH.PTEV ---
Physical Therapy Evaluation Rehab PT IP Evaluation Start: 11/06/23 14:23 Freq: ONCE Status: Active Protocol: Document 11/06/23 14:54 [facility] (Rec: 11/06/23 14:59 PHOPARUL [id number]) Subjective/History History History 83 yowf adm to [facility] with confusion, found to have UTI. She has PMH of atrial fibrillation on digoxin, hypertrophic cardiomyopathy, CAD, carotid stenosis, hypertension, hyperlipidemia, GERD, aortic insufficiency, and COPD. She reports she lives alone, no steps to enter the home, she uses a RW for all ambulation, has family that assists her with bathing, cleaning, and cooking, She uses oxygen at night at baseline. She presents with wound on her L knee and L toes 3-5. ZORA performed during this admission: RIGHT LOWER EXTREMITY: Ankle-brachial pressure index: 0.67 Comments: Moderate disease LEFT LOWER EXTREMITY: Ankle- brachial pressure index: 0.36 Comments: Severe disease Subjective Subjective Pt c/o intermittent sharp pain in B LE, worse at night, most likely due to claudication. She has oxygen on via [place] at all times during treatment and was moderately SOA with all activity. New diagnosis of cancer in past 12 No months? Rehab PT IP Eval Objective Appearance Patient Behavior Appropriate Patient Orientation Person,Place,Time Difficulty following instructions none Speech Pattern Clear Ambulation Patient Able to Ambulate Yes Ambulation Observation IP General Gait Pattern Observation Shuffling Step Ambulation Distance (feet) 5 Ambulation Assistive Device None Ambulation Ability Minimal x 2 (25% assist) Balance Ability to Arise Able, uses arms to help Sitting Balance Steady, safe Standing Balance Steady, wide stance Dynamic Sitting Balance Ability Good Dynamic Standing Balance Ability Fair Transfers Bed Transfer Ability Contact Guard/Hand Hold Chair Transfer Ability Contact Guard/Hand Hold Sit to Stand Bed Transfer Ability Minimal x 1 (25% assist) Sit to Stand Chair Transfer Ability Minimal x 1 (25% assist) ROM All Extremities PT ROM Status WFL MMT All Extremities PT MMT WFL Rehab PT IP prob,goals,plan Problems Date of Evaluation: 11/06/23 PT IP Problems Bed Mobility,Transfers,Gait, Self care Rehab Potential Rehab Potential Good Plan PT Intervention Plan Bed Mobility,Transfers,Gait, Self care,Therapeutic Exercise Discharge Goals Bed Transfer Ability Supervision/Stand by Sit to Stand Chair Transfer Ability Contact Guard/Hand Hold Ambulation Assistive Device Rolling Walker Ambulation Distance (feet) 20 Discharge Plan PT Discharge Plan Pt is currently appropriate to return home once medicall stable for d/c. if family is avaialable for continued assistance. Skilled intervention is appropriate to return pt to prior functinal level and prevent further debility, falls, injury, or wounds. Eval Complexity Eval Charge Codes 15898 - High Complexity PHYSICIAN CERTIFICATION: I certify the specified therapy services for Suri Banks are required, authorized, and reviewed every 30 days.
--- NOTE | 2023-11-06 15:00 | HMH.PTWOUND ---
Rehab Inpt Wound Evaluation Rehab IP Wound Evaluation Start: 11/06/23 11:52 Freq: ONCE Status: Active Protocol: Document 11/06/23 14:43 [facility] (Rec: 11/06/23 14:54 PHOPARUL [id number]) Rehab PT Wound Assessment Subjective Subjective 83 yowf adm to [facility] with confusion, found to have UTI. She has PMH of atrial fibrillation on digoxin, hypertrophic cardiomyopathy, CAD, carotid stenosis, hypertension, hyperlipidemia, GERD, aortic insufficiency, and COPD. She reports she lives alone, no steps to enter the home, she uses a RW for all ambulation, has family that assists her with bathing, cleaning, and cooking, She uses oxygen at night at baseline. She presents with wound on her L knee and L toes 3-5. ZORA performed during this admission: RIGHT LOWER EXTREMITY: Ankle-brachial pressure index: 0.67 Comments: Moderate disease LEFT LOWER EXTREMITY: Ankle- brachial pressure index: 0.36 Comments: Severe disease Wound Right Anterior Knee Wound Type Arterial Ulcer Is This a Chronic Wound Yes Wound Length (cm) 5.0 Wound Width (cm) 5.0 Wound Bed Appearance Eschar Percentage of Eschar (Brown) (%) 100 Wound Margins Description Well Defined Surrounding Tissue Appearance [place],Bright Red Edema Degree None Query Text:1+ Trace, Barely Detectable, Rebound 15-30 seconds 2+ Moderate, Slight Indentation, Rebound 10-20 seconds 3+ Deep, Deeper Indentation, Rebound > 30 seconds 4+ Very Deep, Rebound > 60 seconds Drainage Amount None Plan/Recommendation Comment L knee and very small wounds on L toes 3-5 present with dry eschar in place without drainage. Due to significant PAD with severely decreased blood flow to the L LE, no current intervention is warranted. Maintaining dry, stable eschar until such time as L LE is reperfused is the most appropriate treatment. Eval Complexity Eval Charge Codes 02060 - High Complexity PHYSICIAN CERTIFICATION: I certify the specified therapy services for Suri Banks are required, authorized, and reviewed every 30 days.
[2023-11-06 15:13] LABS: Potassium 4.8 mmoL/L (3.5-5.1)
--- NOTE | 2023-11-06 17:49 | PC.NURSE ---
PT HAS DONE WELL THIS SHIFT. HAS BEEN UP WITH PT. REPORTS FEELING RELIEF AFTER HANNAH INSERTION. PT ALSO REPORTS THAT SHE IS FEELING BETTER THIS AFTERNOON THAN THIS MORNING. SHE TOLERATED THE DIGI MIRIAM WELL THIS AM. VSS. PT DID HAVE A PERIOD THIS AFTERNOON WHERE SHE STATED SHE WAS HAVING A HARDER TIME BREATHING BECAUSE HER NOSE WAS STUFFY. 1L OF O2 WAS PLACED ON THE PT. PT STATED THAT SHE WEARS 1.5L PRN AT HOME. PT HAS REPORTED PAIN IN HER LEFT KNEE/LEG AND HER FEET WITH MANIPULATION THIS SHIFT. NO NEEDS STATED BY PT OR FAMILY.
[2023-11-06 17:56] LABS: Potassium 5.2 mmoL/L (3.5-5.1)
[2023-11-06 21:09] LABS: Potassium 4.7 mmoL/L (3.5-5.1)
[2023-11-06] MEDS: PANTOPRAZOLE 40MG TABLET 40 MG PO (21:52)
[2023-11-06] MEDS: ATORVASTATIN 40MG TABLET 40 MG PO (21:52)
[2023-11-07] VITALS (10 sets, daily range): BP systolic 121–168; BP diastolic 58–95; PULSE 45–80; RESP 16–22; TEMP 36.5–37; O2SAT 90–97; BMI 16.0
[2023-11-07 06:49] LABS: Chloride 102 mmol/L (98-107); Potassium 4.7 mmoL/L (3.5-5.1); Sodium 134 mmol/L (136-145)
[2023-11-07 06:52] LABS: Anion Gap 7.7 mEq/L (5-15); Blood Urea Nitrogen 23 mg/dl (7-17); Carbon Dioxide 29 mmol/L (22.0-30.0); Creatinine Clearance Estimated 24 mL/min (50-200); Estimated Glomerular Filt Rate 48 ml/min (>60); GFR (African American) 58 ML/MIN (>60); Glucose 92 mg/dl (74-100)
[2023-11-07] MEDS: FUROSEMIDE 20MG TABLET 20 MG PO ×2 (08:22→14:55)
[2023-11-07] MEDS: dilTIAZem HCL 180MG CAP.ER.24H 180 MG PO (08:22)
[2023-11-07] MEDS: ASPIRIN EC 81MG TABLET 81 MG PO (08:22)
[2023-11-07] MEDS: BUSPIRONE HCL 10 MG TABLET PO ×2 (08:22→14:55)
[2023-11-07] MEDS: SPIRONOLACTONE 25MG TABLET 25 MG PO (08:22)
[2023-11-07] MEDS: CLOPIDOGREL 75MG TAB 75 MG PO (08:22)
--- NOTE | 2023-11-07 08:58 | P.PN_ITS ---
Subjective *Date: 11/07/23 *Time: 08:58 Interval history: Patient is feeling much better this am. Her daughter says she was up and down and confused all night but she is oriented this morning. She was able to eat a few bites. She is requesting bentyl for IBS. Her abdominal pain has resolved. She is still having bilateral leg pain. Medical Exam Vital signs and Labs for Last 24 Hours: Vital Signs Temp Pulse Pulse Resp BP BP Pulse Ox 11/07/23 07:49 97.7 F 59 L 22 125/58 L 93 L 11/07/23 04:54 50 L 11/07/23 04:00 97.9 F 60 16 133/58 L 94 L 11/07/23 03:00 11/07/23 00:57 11/07/23 00:00 63 11/07/23 00:00 98.6 F 67 16 150/59 H 97 11/06/23 23:00 11/06/23 21:00 11/06/23 20:00 53 L 11/06/23 20:00 11/06/23 20:00 98.4 F 47 L 16 126/51 L 98 11/06/23 18:42 11/06/23 17:00 11/06/23 16:00 70 11/06/23 15:23 97.8 F 72 17 144/65 H 100 11/06/23 15:00 11/06/23 13:00 11/06/23 12:00 60 11/06/23 11:43 97.7 F 75 18 152/75 H 96 11/06/23 11:40 97.9 F 80 18 152/75 H 96 11/06/23 11:35 97.9 F 80 18 152/92 H 95 11/06/23 11:30 97.9 F 93 H 18 153/77 H 96 11/06/23 11:25 97.7 F 81 18 146/82 H 98 11/06/23 11:20 97.8 F 77 16 158/86 H 98 11/06/23 11:15 97.7 F 77 16 143/7 H 97 11/06/23 11:12 77 11/06/23 11:03 97.7 F 78 16 150/80 H 100 11/06/23 11:00 11/06/23 09:00 O2 Del Method O2 Flow Rate 11/07/23 07:49 Room Air 11/07/23 04:54 11/07/23 04:00 Nasal Cannula 2 11/07/23 03:00 Nasal Cannula 1 11/07/23 00:57 Nasal Cannula 1 11/07/23 00:00 11/07/23 00:00 Nasal Cannula 2 11/06/23 23:00 Nasal Cannula 1 11/06/23 21:00 Nasal Cannula 1 11/06/23 20:00 11/06/23 20:00 Nasal Cannula 1 11/06/23 20:00 Room Air 11/06/23 18:42 Nasal Cannula 1 11/06/23 17:00 Nasal Cannula 1 11/06/23 16:00 11/06/23 15:23 Nasal Cannula 1 11/06/23 15:00 Nasal Cannula 1 11/06/23 13:00 Room Air 11/06/23 12:00 11/06/23 11:43 Room Air 11/06/23 11:40 Room Air 11/06/23 11:35 Room Air 11/06/23 11:30 Room Air 11/06/23 11:25 Room Air 11/06/23 11:20 Room Air 11/06/23 11:15 Room Air 11/06/23 11:12 11/06/23 11:03 Room Air 11/06/23 11:00 Room Air 11/06/23 09:00 Room Air Intake and Output 11/06/23 11/07/23 11/07/23 19:59 03:59 11:59 Intake Total 480 / 660 180 / 660 0 / 660 Output Total 955 / 1655 700 / 1655 Balance -475 / -995 180 / -995 -700 / -995 Intake: Intake, Oral Amount 480 / 660 180 / 660 0 / 660 Output: Output, Urine Amount 955 / 1655 700 / 1655 Other: Number of Unmeasured Voids 0 0 Number of Bowel Movements 1 1 Laboratory Results - last 24 hr 11/06/23 09:30: SARS-CoV-2 (PCR) Not detected, Influenza A Untype (PCR) Not detected, Influenza Type B (PCR) Not detected 11/06/23 11:55: Potassium 5.4 H 11/06/23 13:06: Potassium 5.1 11/06/23 14:45: Potassium 4.8 11/06/23 17:16: Potassium 5.2 H 11/06/23 20:50: Potassium 4.7 11/07/23 05:44: Sodium 134 L, Potassium 4.7, Chloride 102, Carbon Dioxide 29, Anion Gap 7.7, BUN 23 H, Creatinine 1.10 H D, Estimated Creat Clear 24, Estimated GFR 48 L, Est GFR ( Amer) 58 L D, Glucose 92, Calcium 9.0, Digoxin 3.30 H* I & O for Labs for Last 24 Hours: Intake & Output 11/04/23 11/05/23 11/06/23 11/07/23 11:59 11:59 11:59 11:59 Intake Total 120 / 120 660 / 660 Output Total 150 / 150 1655 / 1655 Balance -30 / -30 -995 / -995 Weight 85 lb Constitutional: Present no acute distress Respiratory: Present decreased breath sounds and rhonchi Cardiac: Present Reg Rate and Rhythm GI: Present soft; Absent distention or tenderness Extremities: Absent edema Comment:: large wound on the left knee and wounds on the left toes Neuro: Present alert, awake and oriented x 3 Assessment and Plan *Assessment and plan (1) Accidental digoxin overdose: Status: Acute Category: Medical Code(s): T46.0X1A - Poisoning by cardiac-stimulant glycosides and drugs of similar action, accidental (unintentional), initial encounter (2) Acute UTI: Status: Acute Category: Medical Code(s): N39.0 - Urinary tract infection, site not specified (3) Urinary retention: Status: Acute Category: Medical Code(s): R33.9 - Retention of urine, unspecified (4) Leg wound, left: Status: Acute Category: Medical Code(s): S81.802A - Unspecified open wound, left lower leg, initial encounter (5) Abnormal EKG: Status: Acute Category: Medical Code(s): R94.31 - Abnormal electrocardiogram [ECG] [EKG] (6) Altered mental status: Status: Acute Category: Medical Code(s): R41.82 - Altered mental status, unspecified (7) Smoking greater than 30 pack years: Status: Acute Category: Social Hx Code(s): F17.210 - Nicotine dependence, cigarettes, uncomplicated (8) COPD mixed type: Status: Acute Category: Medical Code(s): J44.9 - Chronic obstructive pulmonary disease, unspecified (9) Presence of Watchman left atrial appendage closure device: Status: Chronic Category: Medical Code(s): Z95.818 - Presence of other cardiac implants and grafts (10) Apical variant hypertrophic cardiomyopathy: Status: Chronic Category: Medical Code(s): I42.2 - Other hypertrophic cardiomyopathy (11) longterm current use of anticoagulant: Status: Chronic Category: Medical Code(s): 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 transplanted heart: [place] heart Associated angina: without angina Qualified Code(s): I25.10 - Atherosclerotic heart disease of [place] coronary artery without angina pectoris Category: Medical Code(s): I25.10 - Atherosclerotic heart disease of [place] coronary artery without angina pectoris (13) HOCM (hypertrophic obstructive cardiomyopathy): Status: Chronic Category: Medical Code(s): I42.1 - Obstructive hypertrophic cardiomyopathy (14) Pulmonary HTN: Status: Chronic Category: Medical Code(s): I27.20 - Pulmonary hypertension, unspecified (15) Hypertension: Status: Chronic Qualifiers: Hypertension type: essential hypertension Qualified Code(s): I10 - Essential (primary) hypertension Category: Medical Code(s): I10 - Essential (primary) hypertension (16) Hyperlipidemia: Status: Chronic Qualifiers: Hyperlipidemia type: mixed hyperlipidemia Qualified Code(s): E78.2 - Mixed hyperlipidemia Category: Medical Code(s): E78.5 - Hyperlipidemia, unspecified (17) Gastroesophageal reflux disease: Status: Chronic Qualifiers: Esophagitis presence: esophagitis presence not specified Qualified Code(s): K21.9 - Gastro-esophageal reflux disease without esophagitis Category: Medical Code(s): K21.9 - Gastro-esophageal reflux disease without esophagitis (18) Status post carotid endarterectomy: Status: Chronic Category: Surgical Code(s): Z98.890 - Other specified postprocedural states (19) Anxiety disorder: Status: Chronic Category: Medical Code(s): F41.9 - Anxiety disorder, unspecified Plan Potassium has normalized. Digoxin level is down to 3.3. Her mental status has improved significantly. Her heart rate was low and the nurse is going to hold her metoprolol until she is seen by cardiology. Cardiology to follow. Will continue abx for UTI.
--- NOTE | 2023-11-07 10:20 | P.PN_ITS ---
Subjective Subjective Date: 11/07/23 Time: 08:00 Principal diagnosis: Due to toxicity, confusion, UTI Interval history: Patient doing well this morning, family at bedside, morning labs reviewed. Exam Data for Last 24 hours Vital signs and Labs for Last 24 Hours: Temp Pulse Resp BP Pulse Ox O2 Del Method O2 Flow Rate 97.7 F 45 L 22 125/58 L 93 L Room Air 2 11/07/23 07:49 11/07/23 08:00 11/07/23 07:49 11/07/23 07:49 11/07/23 07:49 11/07/23 09:00 11/07/23 04:00 Laboratory Results - last 24 hr 11/06/23 11:55: Potassium 5.4 H 11/06/23 13:06: Potassium 5.1 11/06/23 14:45: Potassium 4.8 11/06/23 17:16: Potassium 5.2 H 11/06/23 20:50: Potassium 4.7 11/07/23 05:44: Sodium 134 L, Potassium 4.7, Chloride 102, Carbon Dioxide 29, Anion Gap 7.7, BUN 23 H, Creatinine 1.10 H D, Estimated Creat Clear 24, Estimated GFR 48 L, Est GFR ( Amer) 58 L D, Glucose 92, Calcium 9.0, Digoxin 3.30 H* I & O for Last 24 hours: Intake & Output 11/04/23 11/05/23 11/06/23 11/07/23 23:59 23:59 23:59 23:59 Intake Total 600 / 780 180 / 180 Output Total 1105 / 1105 700 / 700 Balance -505 / -325 -520 / -520 Weight 94 lb 85 lb Constitutional Constitutional: no acute distress *Routine Respiratory Exam Respiratory: Present CTA bilaterally and symmetric chest movement *Routine Cardiovascular Exam Cardiovascular: Present RRR, Normal S1 and Normal S2 *Routine Abdominal Exam Abdominal: Present soft and normoactive bowel sounds; Absent tenderness *Routine Extremities Exam Extremities: Present full ROM and normal capillary refill; Absent edema Comments: Bilateral legs are pale and warm, bilateral pulses present but weak. Eschar like wound noted on left knee with mild erythema surrounding area. Small necrotic wounds noted to distal 3rd, 4th and 5th digits on left food. 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: Status: Chronic (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: 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 (12) CAD (coronary artery disease): Status: Chronic (13) HOCM (hypertrophic obstructive cardiomyopathy): Status: Chronic (14) Pulmonary HTN: Status: Chronic (15) Hypertension: Status: Chronic (16) Hyperlipidemia: Status: Chronic (17) Gastroesophageal reflux disease: Status: Chronic (18) Status post carotid endarterectomy: Status: Chronic (19) Anxiety disorder: Status: Chronic Assessment and Plan Assessment and Plan for All Diagnoses:: History of coronary artery disease EKG concerning for acute ID in the setting of digoxin toxicity Digoxin toxicity -Left heart cath 11/06/2023: Moderate obstructive disease without occluded vessels causing ST changes -Continue aspirin 81 mg p.o. daily and, Plavix 75 mg daily, high-dose statin and metoprolol succinate at increased dose of 100 mg daily -Digoxin on hold, reversal agent given yesterday -Initial digoxin level 6 trending down to 3.3 today Vasculopath Concern for worsening PAD -Carotid artery stenosis-20 to 49% KALYAN, 20 to 49% LICA October 2020. Patient is status post right and left endarterectomy. -History of right subclavian stent in 2018 -History of celiac stenting 2021 Family endorses recent worsening bilateral leg pain with wounds noted to left knee and toes. Has been scheduled for an outpatient CT angiogram to further evaluate. Will obtain ZORA today. 11/05/2022: ZORA: Moderate arterial disease noted to right leg and severe disease noted to left leg. Recommend patient remains inpatient over the weekend and undergoes angiogram in [facility] on Friday for further evaluation and treatment of PAD. Patient on aspirin, plavix and statin, will continue. Chronic A-fib Status post Watchman device -Hold digoxin due to digoxin toxicity -Increase home dose of metoprolol to 100 mg p.o. daily -Continue diltiazem 180 mg daily History of HFpEF Mildly to moderate dilated RV with mild reduction of RV function Severe biatrial dilation Moderate TR and MD Elevated RVSP greater than 60 Hx of apical HOCM -No signs of volume overload noted -Echocardiogram-official read is pending -Continue Lasix 20 mg daily and Aldactone 25 mg daily. No Jardiance currently due to UTI -Previously has declined a cardiac MRI to further evaluate HOCM 11/07/2023: Echocardiogram is pending. ZORA reveals moderate disease to right leg and severe disease noted to the left leg, official report is pending. If patient remains in the hospital over the weekend then will undergo angiogram with runoff in the [facility] on Friday for further evaluation/intervention for PAD. If DC home before Friday, then needs office appointment on Friday to schedule outpatient angiogram with runoff. Digoxin reversal was given 11/05 and dig level this morning is 3.3.
[2023-11-07] MEDS: ONDANSETRON 4MG/2ML VIAL 4 MG IV (14:30)
[2023-11-07] MEDS: ACETAMINOPHEN 325MG TAB 650 MG PO (15:36)
--- NOTE | 2023-11-07 20:23 | PC.NURSE ---
Patient becoming paranoid with increasing confusion stating she is being locked in her room her family and you (talking about this mortgage or loan underwriter) are going to kill her tonight. Family states this is new behavior. Patient wants to get out of bed and advised family that would be ok as long as she had someone with her. Spoke to bal Dixon [facility] for Seroquel 25mg PO x 1 dose.
[2023-11-07] MEDS: CEFTRIAXONE SODIUM 2 GM in 0.9 % SODIUM CHLORIDE 100 ML IV (20:50)
--- NOTE | 2023-11-07 20:50 | PC.NURSE ---
Patient refused all PO meds stating that she had already taken her medications for the day this morning. Patient did agree to take the IV antibiotic.
[2023-11-08] VITALS: BP 142/69; PULSE 65; PULSE 80; RESP 18; TEMP 36.5; O2SAT 93
[2023-11-08 04:00] VITALS: BP 169/75; PULSE 50; PULSE 68; RESP 20; TEMP 36.9; O2SAT 95; BMI 16.0
--- NOTE | 2023-11-08 06:01 | PC.NURSE ---
Patient VSS, Lungs clear. Patient rested throughout night with no behavioral issues. Patient did refuse all HS meds including Seroquel that was order for her aggressive and paranoid behavior. Family at bedside throughout night.
[2023-11-08 07:09] LABS: Chloride 101 mmol/L (98-107); Potassium 4.3 mmoL/L (3.5-5.1); Sodium 135 mmol/L (136-145)
[2023-11-08 07:12] LABS: Anion Gap 7.3 mEq/L (5-15); Blood Urea Nitrogen 20 mg/dl (7-17); Calcium 8.8 mg/dl (8.4-10.2); Carbon Dioxide 31 mmol/L (22.0-30.0); Creatinine Clearance Estimated 27 mL/min (50-200); Estimated Glomerular Filt Rate 53 ml/min (>60); GFR (African American) 64 ML/MIN (>60); Glucose 112 mg/dl (74-100)
[2023-11-08 08:00] VITALS: BP 134/67; PULSE 80; PULSE 84; RESP 21; TEMP 36.2; O2SAT 96
[2023-11-08] MEDS: ASPIRIN EC 81MG TABLET 81 MG PO (08:27)
[2023-11-08] MEDS: dilTIAZem HCL 180MG CAP.ER.24H 180 MG PO (08:28)
[2023-11-08] MEDS: BUSPIRONE HCL 10 MG TABLET PO ×3 (08:28→21:01)
[2023-11-08] MEDS: CLOPIDOGREL 75MG TAB 75 MG PO (08:28)
[2023-11-08] MEDS: FUROSEMIDE 20MG TABLET 20 MG PO ×2 (08:28→15:08)
[2023-11-08] MEDS: METOPROLOL SUCCINATE XL 100MG TABLET 100 MG PO (08:29)
[2023-11-08] MEDS: SPIRONOLACTONE 25MG TABLET 25 MG PO (08:29)
--- NOTE | 2023-11-08 10:21 | P.PN_ITS ---
Subjective *Date: 11/08/23 *Time: 10:21 Interval history: Patient with no new complaints today Medical Exam Vital signs and Labs for Last 24 Hours: Vital Signs Temp Pulse Pulse Resp BP Pulse Ox O2 Del Method 11/08/23 08:47 Room Air 11/08/23 08:00 80 11/08/23 08:00 Room Air 11/08/23 08:00 97.1 F L 84 21 134/67 96 Room Air 11/08/23 06:43 Room Air 11/08/23 05:00 Room Air 11/08/23 04:00 98.4 F 68 20 169/75 H 95 Room Air 11/08/23 04:00 50 L 11/08/23 03:00 Room Air 11/08/23 00:53 Room Air 11/08/23 00:00 80 11/08/23 00:00 97.7 F 65 18 142/69 H 93 L Room Air 11/07/23 23:00 Room Air 11/07/23 21:00 Room Air 11/07/23 20:00 80 11/07/23 20:00 92 L Room Air 11/07/23 20:00 97.8 F 76 22 168/95 H 92 L Room Air 11/07/23 17:56 Room Air 11/07/23 16:00 54 L 11/07/23 15:28 98.4 F 50 L 20 121/58 L 90 L Room Air 11/07/23 15:05 Room Air 11/07/23 13:05 Room Air 11/07/23 12:00 57 L 11/07/23 11:48 98.0 F 66 22 137/73 96 Room Air 11/07/23 11:10 Room Air Intake and Output 11/07/23 11/08/23 11/08/23 23:59 07:59 15:59 Intake Total 120 / 1410 340 / 340 Output Total 700 / 700 0 / 700 Balance 120 / 185 -360 / -360 0 / -360 Intake: Intake, Oral Amount 120 / 1310 240 / 240 Intake, Total IV Amount 100 / 100 Ceftriaxone Sodium 2 gm In 0.9 100 / 100 % Sodium Chloride 100 ml @ 200 mls/hr IV Q24H [facility] Rx#:[id number] Output: Output, Urine Amount 700 / 700 0 / 700 Other: Number of Voids 0 Number of Unmeasured Voids 0 Weight 84 lb 15.811 oz Patient Weight 11/08/23 23:59 Weight 84 lb 15.811 oz Laboratory Results - last 24 hr 11/08/23 06:35: Sodium 135 L, Potassium 4.3, Chloride 101, Carbon Dioxide 31 H, Anion Gap 7.3, BUN 20 H, Creatinine 1.00, Estimated Creat Clear 27, Estimated GFR 53 L, Est GFR ( Amer) 64, Glucose 112 H, Calcium 8.8 I & O for Labs for Last 24 Hours: Intake & Output 11/05/23 11/06/23 11/07/23 11/08/23 23:59 23:59 23:59 23:59 Intake Total 600 / 780 1070 / 1410 340 / 340 Output Total 1105 / 1105 1225 / 1225 700 / 700 Balance -505 / -325 -155 / 185 -360 / -360 Weight 94 lb 85 lb 84 lb 15.811 oz 84 lb 15.811 oz Microbiology Reports for the Last 24 Hours: Microbiology 11/05/23 19:56 Urine,Clean Catch Urine Culture - Preliminary Constitutional: Present no acute distress Respiratory: Present decreased breath sounds and rhonchi Cardiac: Present Reg Rate and Rhythm GI: Present soft; Absent distention or tenderness Extremities: Absent edema Comment:: large wound on the left knee and wounds on the left toes Neuro: Present alert, awake and oriented x 3 Assessment and Plan *Assessment and plan (1) Accidental digoxin overdose: Status: Acute Category: Medical Code(s): T46.0X1A - Poisoning by cardiac-stimulant glycosides and drugs of similar action, accidental (unintentional), initial encounter (2) Acute UTI: Status: Acute Category: Medical Code(s): N39.0 - Urinary tract infection, site not specified (3) Urinary retention: Status: Acute Category: Medical Code(s): R33.9 - Retention of urine, unspecified (4) Leg wound, left: Status: Acute Category: Medical Code(s): S81.802A - Unspecified open wound, left lower leg, initial encounter (5) Abnormal EKG: Status: Acute Category: Medical Code(s): R94.31 - Abnormal electrocardiogram [ECG] [EKG] (6) Altered mental status: Status: Acute Category: Medical Code(s): R41.82 - Altered mental status, unspecified (7) Smoking greater than 30 pack years: Status: Acute Category: Social Hx Code(s): F17.210 - Nicotine dependence, cigarettes, uncomplicated (8) COPD mixed type: Status: Acute Category: Medical Code(s): J44.9 - Chronic obstructive pulmonary disease, unspecified (9) Presence of Watchman left atrial appendage closure device: Status: Chronic Category: Medical Code(s): Z95.818 - Presence of other cardiac implants and grafts (10) Apical variant hypertrophic cardiomyopathy: Status: Chronic Category: Medical Code(s): I42.2 - Other hypertrophic cardiomyopathy (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 transplanted heart: [place] heart Associated angina: without angina Qualified Code(s): I25.10 - Atherosclerotic heart disease of [place] coronary artery without angina pectoris Category: Medical Code(s): I25.10 - Atherosclerotic heart disease of [place] coronary artery without angina pectoris (13) HOCM (hypertrophic obstructive cardiomyopathy): Status: Chronic Category: Medical Code(s): I42.1 - Obstructive hypertrophic cardiomyopathy (14) Pulmonary HTN: Status: Chronic Category: Medical Code(s): I27.20 - Pulmonary hypertension, unspecified (15) Hypertension: Status: Chronic Qualifiers: Hypertension type: essential hypertension Qualified Code(s): I10 - Essential (primary) hypertension Category: Medical Code(s): I10 - Essential (primary) hypertension (16) Hyperlipidemia: Status: Chronic Qualifiers: Hyperlipidemia type: mixed hyperlipidemia Qualified Code(s): E78.2 - Mixed hyperlipidemia Category: Medical Code(s): E78.5 - Hyperlipidemia, unspecified (17) Gastroesophageal reflux disease: Status: Chronic Qualifiers: Esophagitis presence: esophagitis presence not specified Qualified Code(s): K21.9 - Gastro-esophageal reflux disease without esophagitis Category: Medical Code(s): K21.9 - Gastro-esophageal reflux disease without esophagitis (18) Status post carotid endarterectomy: Status: Chronic Category: Surgical Code(s): Z98.890 - Other specified postprocedural states (19) Anxiety disorder: Status: Chronic Category: Medical Code(s): F41.9 - Anxiety disorder, unspecified Plan No change in treatment plan today, continue antibiotics, plan angiogram of left leg in 2 days.
--- NOTE | 2023-11-08 10:44 | EXP.PHA.PN ---
Subjective *Date: 11/08/23 *Time: 10:44 Medical Exam Vital signs and Labs for Last 24 Hours: Vital Signs Temp Pulse Pulse Resp BP Pulse Ox O2 Del Method 11/08/23 08:47 Room Air 11/08/23 08:00 80 11/08/23 08:00 Room Air 11/08/23 08:00 97.1 F L 84 21 134/67 96 Room Air 11/08/23 06:43 Room Air 11/08/23 05:00 Room Air 11/08/23 04:00 98.4 F 68 20 169/75 H 95 Room Air 11/08/23 04:00 50 L 11/08/23 03:00 Room Air 11/08/23 00:53 Room Air 11/08/23 00:00 80 11/08/23 00:00 97.7 F 65 18 142/69 H 93 L Room Air 11/07/23 23:00 Room Air 11/07/23 21:00 Room Air 11/07/23 20:00 80 11/07/23 20:00 92 L Room Air 11/07/23 20:00 97.8 F 76 22 168/95 H 92 L Room Air 11/07/23 17:56 Room Air 11/07/23 16:00 54 L 11/07/23 15:28 98.4 F 50 L 20 121/58 L 90 L Room Air 11/07/23 15:05 Room Air 11/07/23 13:05 Room Air 11/07/23 12:00 57 L 11/07/23 11:48 98.0 F 66 22 137/73 96 Room Air 11/07/23 11:10 Room Air Intake and Output 11/07/23 11/08/23 11/08/23 23:59 07:59 15:59 Intake Total 120 / 1410 340 / 340 Output Total 700 / 700 0 / 700 Balance 120 / 185 -360 / -360 0 / -360 Intake: Intake, Oral Amount 120 / 1310 240 / 240 Intake, Total IV Amount 100 / 100 Ceftriaxone Sodium 2 gm In 0.9 100 / 100 % Sodium Chloride 100 ml @ 200 mls/hr IV Q24H [facility] Rx#:[id number] Output: Output, Urine Amount 700 / 700 0 / 700 Other: Number of Voids 0 Number of Unmeasured Voids 0 Weight 38.55 kg Patient Weight 11/08/23 23:59 Weight 38.55 kg Laboratory Results - last 24 hr 11/08/23 06:35: Sodium 135 L, Potassium 4.3, Chloride 101, Carbon Dioxide 31 H, Anion Gap 7.3, BUN 20 H, Creatinine 1.00, Estimated Creat Clear 27, Estimated GFR 53 L, Est GFR ( Amer) 64, Glucose 112 H, Calcium 8.8 I & O for Labs for Last 24 Hours: Intake & Output 11/05/23 11/06/23 11/07/23 11/08/23 23:59 23:59 23:59 23:59 Intake Total 600 / 780 1070 / 1410 340 / 340 Output Total 1105 / 1105 1225 / 1225 700 / 700 Balance -505 / -325 -155 / 185 -360 / -360 Weight 42.638 kg 38.555 kg 38.55 kg 38.55 kg Microbiology Reports for the Last 24 Hours: Microbiology 11/05/23 19:56 Urine,Clean Catch Urine Culture - Preliminary The patient's infection will respond to the chosen ABx?: Yes Is the patient receiving the right drug, dose, and route?: Yes Could a more targeted ABx be ordered?: No (URINE CX PENDING)
[2023-11-08] MEDS: NICOTINE 21MG/24HR PATCH 21 MG TD (11:21)
[2023-11-08 12:00] VITALS: BP 126/56; PULSE 50; PULSE 70; RESP 20; TEMP 36.6; O2SAT 94
--- NOTE | 2023-11-08 15:39 | PC.NURSE ---
pt has been resting in bed throughout shift. pt ambulated in hallway this afternoon with assistance. pt has had brief moments of confusion, but otherwise has been alert and oriented. pt has had no complaints throughout shift. family at bedside. call luther within reach.
[2023-11-08 16:00] VITALS: BP 136/60; PULSE 55; PULSE 60; RESP 19; TEMP 36.4; O2SAT 93
--- NOTE | 2023-11-08 19:20 | PC.NURSE ---
Pt IV to Right AC, infiltrated. Pt upper and lower arm bruised and upper arm is edematous. Removed IV at this time, dressed area and elevated pt arm.
[2023-11-08 20:00] VITALS: BP 122/59; PULSE 40; PULSE 45; RESP 20; TEMP 36.8; O2SAT 93
[2023-11-08] MEDS: PANTOPRAZOLE 40MG TABLET 40 MG PO (21:01)
[2023-11-08] MEDS: ATORVASTATIN 40MG TABLET 40 MG PO (21:01)
[2023-11-08] MEDS: CEFTRIAXONE SODIUM 2 GM in 0.9 % SODIUM CHLORIDE 100 ML IV (21:02)
[2023-11-08] MEDS: ACETAMINOPHEN 325MG TAB 650 MG PO (22:38)
[2023-11-09] VITALS (7 sets, daily range): BP systolic 111–155; BP diastolic 47–87; PULSE 38–69; RESP 18–20; TEMP 36.4–36.7; O2SAT 91–96; BMI 16.0
--- NOTE | 2023-11-09 03:05 | PC.NURSE ---
Pt is alert to self and situation at times. Pt has c/o pain in left knee, this nurse applied a foam dressing to provide cushion and comfort to pt's large scabbed area, pt was also treated per MAR. Pt HR has been nicole for the most part of the shift, secured entrance monitor remains in place. pt tolerates taking meds well with applesauce. Pt family members x2 at bedside. Pt denies pain and needs at this time.
[2023-11-09] MEDS: ASPIRIN EC 81MG TABLET 81 MG PO (08:06)
[2023-11-09] MEDS: CLOPIDOGREL 75MG TAB 75 MG PO (08:06)
[2023-11-09] MEDS: FUROSEMIDE 20MG TABLET 20 MG PO ×2 (08:06→17:09)
[2023-11-09] MEDS: dilTIAZem HCL 180MG CAP.ER.24H 180 MG PO (08:06)
[2023-11-09] MEDS: BUSPIRONE HCL 10 MG TABLET PO ×3 (08:06→20:46)
[2023-11-09] MEDS: SPIRONOLACTONE 25MG TABLET 25 MG PO (08:07)
[2023-11-09] MEDS: METOPROLOL SUCCINATE XL 100MG TABLET 100 MG PO (08:07)
--- NOTE | 2023-11-09 09:12 | EXP.ACUTE.PN ---
Subjective *Date: 11/09/23 *Time: 09:12 Interval history: Patient and her family both state she had a good night last night, slept well. Medical Exam Vital signs and Labs for Last 24 Hours: Vital Signs Temp Pulse Pulse Resp BP Pulse Ox O2 Del Method 11/09/23 08:00 97.6 F 66 19 111/47 L 93 L Nasal Cannula 11/09/23 06:40 Room Air 11/09/23 05:00 Room Air 11/09/23 04:00 40 L 11/09/23 04:00 98.0 F 65 18 131/64 93 L Room Air 11/09/23 02:54 Room Air 11/09/23 01:00 Room Air 11/09/23 00:00 40 L 11/09/23 00:00 98.1 F 52 L 20 122/51 L 91 L Room Air 11/08/23 23:00 Room Air 11/08/23 21:20 Room Air 11/08/23 20:00 40 L 11/08/23 20:00 Room Air 11/08/23 20:00 98.2 F 45 L 20 122/59 L 93 L Room Air 11/08/23 18:44 Room Air 11/08/23 17:00 Room Air 11/08/23 16:00 97.6 F 55 L 19 136/60 93 L Room Air 11/08/23 16:00 60 11/08/23 15:00 Room Air 11/08/23 12:32 Room Air 11/08/23 12:00 97.8 F 50 L 20 126/56 L 94 L Room Air 11/08/23 12:00 70 11/08/23 10:56 Room Air O2 Flow Rate 11/09/23 08:00 1 11/09/23 06:40 11/09/23 05:00 11/09/23 04:00 11/09/23 04:00 11/09/23 02:54 11/09/23 01:00 11/09/23 00:00 11/09/23 00:00 11/08/23 23:00 11/08/23 21:20 11/08/23 20:00 11/08/23 20:00 11/08/23 20:00 11/08/23 18:44 11/08/23 17:00 11/08/23 16:00 11/08/23 16:00 11/08/23 15:00 11/08/23 12:32 11/08/23 12:00 11/08/23 12:00 11/08/23 10:56 Intake and Output 11/08/23 11/09/23 11/09/23 23:59 07:59 15:59 Intake Total 490 / 1550 120 / 120 Output Total 600 / 1300 300 / 300 0 / 300 Balance -110 / 250 -300 / -180 120 / -180 Intake: Intake, Oral Amount 390 / 1350 120 / 120 Intake, Total IV Amount 100 / 200 Ceftriaxone Sodium 2 gm In 0.9 100 / 200 % Sodium Chloride 100 ml @ 200 mls/hr IV Q24H [facility] Rx#:[id number] Output: Output, Urine Amount 600 / 1300 300 / 300 0 / 300 Other: Number of Voids 0 Number of Unmeasured Voids 1 0 Weight 84 lb 15.811 oz Patient Weight 11/09/23 23:59 Weight 84 lb 15.811 oz I & O for Labs for Last 24 Hours: Intake & Output 11/06/23 11/07/23 11/08/23 11/09/23 23:59 23:59 23:59 23:59 Intake Total 600 / 780 1070 / 1410 1550 / 1550 120 / 120 Output Total 1105 / 1105 1225 / 1225 1300 / 1300 300 / 300 Balance -505 / -325 -155 / 185 250 / 250 -180 / -180 Weight 85 lb 84 lb 15.811 oz 84 lb 15.811 oz 84 lb 15.811 oz Microbiology Reports for the Last 24 Hours: Microbiology 11/05/23 19:56 Urine,Clean Catch Urine Culture - Preliminary Constitutional: Present no acute distress Respiratory: Present decreased breath sounds and rhonchi Cardiac: Present Reg Rate and Rhythm and Bradycardia (HR 56 now) GI: Present soft; Absent distention or tenderness Extremities: Absent edema Comment:: large wound on the left knee and wounds on the left toes Neuro: Present alert, awake and oriented x 3 Assessment and Plan *Assessment and plan (1) Accidental digoxin overdose: Status: Acute Category: Medical Code(s): T46.0X1A - Poisoning by cardiac-stimulant glycosides and drugs of similar action, accidental (unintentional), initial encounter (2) Acute UTI: Status: Acute Category: Medical Code(s): N39.0 - Urinary tract infection, site not specified (3) Urinary retention: Status: Acute Category: Medical Code(s): R33.9 - Retention of urine, unspecified (4) Leg wound, left: Status: Acute Category: Medical Code(s): S81.802A - Unspecified open wound, left lower leg, initial encounter (5) Abnormal EKG: Status: Acute Category: Medical Code(s): R94.31 - Abnormal electrocardiogram [ECG] [EKG] (6) Altered mental status: Status: Acute Category: Medical Code(s): R41.82 - Altered mental status, unspecified (7) Smoking greater than 30 pack years: Status: Acute Category: Social Hx Code(s): F17.210 - Nicotine dependence, cigarettes, uncomplicated (8) COPD mixed type: Status: Acute Category: Medical Code(s): J44.9 - Chronic obstructive pulmonary disease, unspecified (9) Presence of Watchman left atrial appendage closure device: Status: Chronic Category: Medical Code(s): Z95.818 - Presence of other cardiac implants and grafts (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 transplanted heart: [place] heart Associated angina: without angina Qualified Code(s): I25.10 - Atherosclerotic heart disease of [place] coronary artery without angina pectoris Category: Medical Code(s): I25.10 - Atherosclerotic heart disease of [place] coronary artery without angina pectoris (13) HOCM (hypertrophic obstructive cardiomyopathy): Status: Chronic Category: Medical Code(s): I42.1 - Obstructive hypertrophic cardiomyopathy (14) Pulmonary HTN: Status: Chronic Category: Medical Code(s): I27.20 - Pulmonary hypertension, unspecified (15) Hypertension: Status: Chronic Qualifiers: Hypertension type: essential hypertension Qualified Code(s): I10 - Essential (primary) hypertension Category: Medical Code(s): I10 - Essential (primary) hypertension (16) Hyperlipidemia: Status: Chronic Qualifiers: Hyperlipidemia type: mixed hyperlipidemia Qualified Code(s): E78.2 - Mixed hyperlipidemia Category: Medical Code(s): E78.5 - Hyperlipidemia, unspecified (17) Gastroesophageal reflux disease: Status: Chronic Qualifiers: Esophagitis presence: esophagitis presence not specified Qualified Code(s): K21.9 - Gastro-esophageal reflux disease without esophagitis Category: Medical Code(s): K21.9 - Gastro-esophageal reflux disease without esophagitis (18) Status post carotid endarterectomy: Status: Chronic Category: Surgical Code(s): Z98.890 - Other specified postprocedural states (19) Anxiety disorder: Status: Chronic Category: Medical Code(s): F41.9 - Anxiety disorder, unspecified Plan No change in treatment plan today, continue antibiotics, plan angiogram of left leg tomorrow.
[2023-11-09] MEDS: NICOTINE 21MG/24HR PATCH 21 MG TD (13:00)
[2023-11-09] MEDS: ACETAMINOPHEN 325MG TAB 650 MG PO (14:01)
--- NOTE | 2023-11-09 16:48 | PC.NURSE ---
CONTACTED AEROGRAPHER MD PERKINS ABOUT PATIENT'S CONSISTENT BRADYCARDIA OVER THE PAST COUPLE HOURS. STATES TO PUT A HOLD ON RATE CONTROL MEDICATIONS: METOPROLOL AND DILTIAZEM. ORDER FAXED TO PHARMACY. STATES THAT PT SHOULD BE FINE LONG SHE IS ALERT AND ABLE TO CONVERSE. NO OTHER NEW ORDERS AT THIS TIME.
--- NOTE | 2023-11-09 18:10 | PC.NURSE ---
A&OX4. TOLERATING RA WELL. HAS BEEN RESTING IN BED MAJORITY OF SHIFT. PT HAS REMAINED BRADYCARDIC T/O SHIFT. MD AWARE. FAMILY AT BEDSIDE. PT HAS C/O BLE PAIN X1, TX PER MAR, EFFECTIVENESS NOTED. VSS.
--- NOTE | 2023-11-09 18:58 | PC.NURSE ---
SMALL STAGE 1 AREA TO COCCYX. SACRAL DRESSING PAD APPLIED. PT IS ABLE TO MOVE HERSELF WELL IN BED.
[2023-11-09] MEDS: ATORVASTATIN 40MG TABLET 40 MG PO (20:46)
[2023-11-09] MEDS: PANTOPRAZOLE 40MG TABLET 40 MG PO (20:46)
[2023-11-09] MEDS: CEFTRIAXONE SODIUM 2 GM in 0.9 % SODIUM CHLORIDE 100 ML IV (21:00)
[2023-11-10] VITALS: BP 118/54; PULSE 40; PULSE 46; RESP 18; TEMP 36.8; O2SAT 95
--- NOTE | 2023-11-10 03:49 | PC.NURSE ---
Pt is alert to self and has moments of confusion, pt remains NPO and has been since 0000 11/09. Pt has turned from side to side intermittently, no new changes noted to scab on knee or stage 1 on coccyx. Pt HR remains low ranging from 30-50 at times, MD aware. Pt son at bedside. Pt denies pain and needs at this time.
[2023-11-10 04:00] VITALS: BP 131/63; PULSE 40; PULSE 50; RESP 20; TEMP 36.5; O2SAT 94; BMI 15.9
[2023-11-10 08:00] VITALS: BP 126/69; PULSE 55; PULSE 70; RESP 18; TEMP 37.1; O2SAT 92
--- NOTE | 2023-11-10 08:18 | P.PN_ITS ---
Subjective *Date: 11/10/23 *Time: 09:03 Interval history: Patient for left lower extremity arterial studies today. Son stayed with her throughout the night and states that she slept. He feels she is getting better every day. She is eating as usual which is not very much. She has been out of bed. Patient denies chest pain and shortness of breath. Heart rate runs from 40-50 and sometimes 60. Medical Exam Vital signs and Labs for Last 24 Hours: Vital Signs Temp Pulse Pulse Resp BP Pulse Ox O2 Del Method 11/10/23 06:38 Room Air 11/10/23 05:00 Room Air 11/10/23 04:00 40 L 11/10/23 04:00 97.7 F 50 L 20 131/63 94 L Room Air 11/10/23 03:00 Room Air 11/10/23 01:00 Room Air 11/10/23 00:00 98.2 F 46 L 18 118/54 L 95 Room Air 11/10/23 00:00 40 L 11/09/23 23:00 Room Air 11/09/23 21:00 Room Air 11/09/23 20:00 50 L 11/09/23 20:00 98.1 F 62 18 111/53 L 96 Room Air 11/09/23 20:00 40 L Room Air 11/09/23 18:57 Room Air 11/09/23 17:00 Room Air 11/09/23 16:00 98.1 F 40 L 19 113/62 96 Room Air 11/09/23 16:00 38 L 11/09/23 15:48 40 L 11/09/23 14:43 Room Air 11/09/23 13:00 Room Air 11/09/23 12:00 49 L 11/09/23 12:00 69 19 155/87 H 95 Room Air 11/09/23 11:00 Room Air 11/09/23 09:00 Room Air Intake and Output 11/09/23 11/10/23 11/10/23 19:59 03:59 11:59 Intake Total 540 / 540 0 / 540 Output Total 0 / 0 800 / 800 Balance 540 / 540 0 / 540 -800 / -260 Intake: Intake, Oral Amount 540 / 540 0 / 540 Output: Output, Urine Amount 0 / 0 800 / 800 Other: Number of Voids 0 Number of Unmeasured Voids 0 Weight 84 lb 6.993 oz Patient Weight 11/10/23 11:59 Weight 84 lb 6.993 oz I & O for Labs for Last 24 Hours: Intake & Output 11/07/23 11/08/23 11/09/23 11/10/23 11:59 11:59 11:59 11:59 Intake Total 1160 / 1160 730 / 730 1330 / 1330 540 / 540 Output Total 1655 / 1655 1225 / 1225 900 / 900 800 / 800 Balance -495 / -495 -495 / -495 430 / 430 -260 / -260 Weight 84 lb 15.811 oz 84 lb 15.811 oz 84 lb 6.993 oz Constitutional: Present no acute distress and thin Comment:: Awakened for assessment. Appears comfortable. Respiratory: Present CTA bilaterally (Anteriorly and posteriorly) Cardiac: Present Reg Rate and Rhythm (Heart rate ranged from 40-60) and Audible Murmur GI: Present soft and normal bowel sounds; Absent distention or tenderness Extremities: Absent tenderness, edema or calf tenderness Comment:: Left knee with bandage over wound. Area surrounding bandage clean and dry Neuro: Present alert and awake Assessment and Plan *Assessment and plan (1) Accidental digoxin overdose: Status: Acute Category: Medical Code(s): T46.0X1A - Poisoning by cardiac-stimulant glycosides and drugs of similar action, accidental (unintentional), initial encounter (2) Acute UTI: Status: Acute Category: Medical Code(s): N39.0 - Urinary tract infection, site not specified (3) Urinary retention: Status: Acute Category: Medical Code(s): R33.9 - Retention of urine, unspecified (4) Leg wound, left: Status: Acute Category: Medical Code(s): S81.802A - Unspecified open wound, left lower leg, initial encounter (5) Abnormal EKG: Status: Acute Category: Medical Code(s): R94.31 - Abnormal electrocardiogram [ECG] [EKG] (6) Altered mental status: Status: Acute Category: Medical Code(s): R41.82 - Altered mental status, unspecified (7) Smoking greater than 30 pack years: Status: Acute Category: Social Hx Code(s): F17.210 - Nicotine dependence, cigarettes, uncomplicated (8) COPD mixed type: Status: Acute Category: Medical Code(s): J44.9 - Chronic obstructive pulmonary disease, unspecified (9) Presence of Watchman left atrial appendage closure device: Status: Chronic Category: Medical Code(s): Z95.818 - Presence of other cardiac implants and grafts (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 transplanted heart: [place] heart Qualified Code(s): I25.10 - Atherosclerotic heart disease of [place] coronary artery without angina pectoris Category: Medical Code(s): I25.10 - Atherosclerotic heart disease of [place] coronary artery without angina pectoris (13) HOCM (hypertrophic obstructive cardiomyopathy): Status: Chronic Category: Medical Code(s): I42.1 - Obstructive hypertrophic cardiomyopathy (14) Pulmonary HTN: Status: Chronic Category: Medical Code(s): I27.20 - Pulmonary hypertension, unspecified (15) Hypertension: Status: Chronic Qualifiers: Hypertension type: essential hypertension Qualified Code(s): I10 - Essential (primary) hypertension Category: Medical Code(s): I10 - Essential (primary) hypertension (16) Hyperlipidemia: Status: Chronic Qualifiers: Hyperlipidemia type: mixed hyperlipidemia Qualified Code(s): E78.2 - Mixed hyperlipidemia Category: Medical Code(s): E78.5 - Hyperlipidemia, unspecified (17) Gastroesophageal reflux disease: Status: Chronic Qualifiers: Esophagitis presence: esophagitis presence not specified Qualified Code(s): K21.9 - Gastro-esophageal reflux disease without esophagitis Category: Medical Code(s): K21.9 - Gastro-esophageal reflux disease without esophagitis (18) Status post carotid endarterectomy: Status: Chronic Category: Surgical Code(s): Z98.890 - Other specified postprocedural states (19) Anxiety disorder: Status: Chronic Category: Medical Code(s): F41.9 - Anxiety disorder, unspecified (20) Bradycardia: Status: Acute Category: Medical Code(s): R00.1 - Bradycardia, unspecified Plan For arterial studies of the left lower extremity today. Will continue to monitor. Both Cardizem and metoprolol discontinued for now due to bradycardia. Dr. Callahan entry - Saw patient, agree with above note.
[2023-11-10] MEDS: ASPIRIN EC 81MG TABLET 81 MG PO (08:38)
[2023-11-10] MEDS: CLOPIDOGREL 75MG TAB 75 MG PO (08:38)
[2023-11-10] MEDS: FUROSEMIDE 20MG TABLET 20 MG PO ×2 (08:38→15:18)
[2023-11-10] MEDS: SPIRONOLACTONE 25MG TABLET 25 MG PO (08:39)
[2023-11-10] MEDS: BUSPIRONE HCL 10 MG TABLET PO ×3 (08:39→21:41)
--- NOTE | 2023-11-10 10:05 | CT_ITS ---
FINAL REPORT CLINICAL HISTORY: Peripheral vascular disease. COMPARISON: CTA abdomen and pelvis dated 10/07/2022 FINDINGS: Thin section axial CT images of the abdomen, pelvis and lower extremities were obtained with contrast. Multiplanar reformatted images were also obtained and reviewed. ABDOMEN AND PELVIS: There are diffuse, severe vascular calcifications. There is no evidence of an abdominal aortic aneurysm or dissection. There is moderate plaque or mural thrombus in the abdominal aorta. A celiac artery stent is again identified and it appears patent. There is severe stenosis of the proximal superior mesenteric artery greater than 70%. This appears stable. The proximal internal mesenteric artery is occluded with reconstitution distally. There is moderate stenosis of the bilateral common iliac arteries. There is mild stenosis of the right external iliac artery and moderate, 60% stenosis of the left external iliac artery. These findings appear stable compared to the prior exam. There is mild stenosis of the right internal iliac artery with severe stenosis of the left proximal internal iliac artery of 80%. There is severe calcified plaque at the origins of the renal artery with 60 to 70% stenosis on the right and mild stenosis on the left. RIGHT LOWER EXTREMITY: There is mild stenosis of the right common femoral artery. The right deep femoral artery is patent. The right superficial femoral artery is occluded with reconstitution at the popliteal artery. There are multiple moderate stenoses of the popliteal artery. The right anterior tibial artery is occluded. The posterior tibial and peroneal arteries are patent to the ankle. LEFT LOWER EXTREMITY: There is moderate stenosis of the common femoral artery. The left deep femoral artery is patent. There is occlusion of the superficial femoral artery with reconstitution of the popliteal artery with multifocal moderate stenoses. The anterior tibial artery is occluded. The distal peroneal artery is occluded. The posterior tibial artery is patent to the foot. OTHER FINDINGS: There is scarring in the lung bases. The patient is status postcholecystectomy and hysterectomy. A [place] catheter is seen in the urinary bladder. No acute abnormality is identified in the abdomen or pelvis. 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 Moderate to severe stenosis of the right renal artery is stable. Moderate stenosis of the left external iliac artery is stable. Chronic occlusion of the bilateral superficial femoral arteries. Chronic occlusion of the bilateral anterior tibial arteries with two-vessel runoff, right greater than left. Visualized portions of the abdomen and pelvis appear stable. Reviewed, Interpreted and Dictated by Doug Thomas III, MD Transcribed by Melinda Sim Authenticated and [facility]
--- NOTE | 2023-11-10 10:39 | EXP.CARD.PN ---
Subjective Subjective Date: 11/10/23 Time: 08:30 Principal diagnosis: Digoxin toxicity, confusion, UTI, PAD Interval history: The patient is doing well this morning. She denies any chest pain or pressure. She denies any shortness of breath or edema. She denies any fever, chills, nausea, vomiting, diarrhea, PND or orthopnea. She still does have bilateral lower extremity pain. The left leg is worse than the right. She does have a wound to her knee on the left lower extremity and her toes on the left lower extremity. Exam Data for Last 24 hours Vital signs and Labs for Last 24 Hours: Temp Pulse Resp BP Pulse Ox O2 Del Method O2 Flow Rate 98.7 F 55 L 18 126/69 92 L Room Air 1 11/10/23 08:00 11/10/23 08:00 11/10/23 08:00 11/10/23 08:00 11/10/23 08:00 11/10/23 08:28 11/09/23 08:00 I & O for Last 24 hours: Intake & Output 11/07/23 11/08/23 11/09/23 11/10/23 23:59 23:59 23:59 23:59 Intake Total 1070 / 1410 1550 / 1550 660 / 660 0 / 0 Output Total 1225 / 1225 1300 / 1300 300 / 300 800 / 800 Balance -155 / 185 250 / 250 360 / 360 -800 / -800 Weight 84 lb 15.811 oz 84 lb 15.811 oz 84 lb 15.811 oz 84 lb 6.993 oz Constitutional Constitutional: no acute distress *Routine Respiratory Exam Respiratory: Present CTA bilaterally and symmetric chest movement *Routine Cardiovascular Exam Cardiovascular: Present RRR, Normal S1 and Normal S2 *Routine Abdominal Exam Abdominal: Present soft and normoactive bowel sounds; Absent tenderness *Routine Extremities Exam Extremities: Present full ROM and normal capillary refill; Absent edema Comments: Bilateral legs are pale and warm, bilateral pulses present but weak. Eschar like wound noted on left knee with mild erythema surrounding area. Small necrotic wounds noted to distal 3rd, 4th and 5th digits on left food. *Routine Skin Exam Skin: Present intact, dry and warm Detailed Neck Exam: Thyroids Thyroid: Absent bruit Progress Note: A&P Assessment and plan (1) Peripheral arterial disease: Status: Acute (2) Accidental digoxin overdose: Status: Acute (3) Acute UTI: Status: Acute (4) Urinary retention: Status: Acute (5) CAD (coronary artery disease): Status: Chronic (6) Leg wound, left: Status: Acute (7) Abnormal EKG: Status: Acute (8) Altered mental status: Status: Acute (9) Smoking greater than 30 pack years: Status: Acute (10) COPD mixed type: Status: Acute (11) Presence of Watchman left atrial appendage closure device: Status: Chronic (12) Apical variant hypertrophic cardiomyopathy: Status: Chronic (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 The patient was admitted to the hospital with a digoxin overdose and UTI. The patient's digoxin has been stopped at this time. Will continue to hold digoxin due to the digoxin overdose. 2. The patient does have a history of coronary artery disease. She did have an elevated troponin on admission with EKG changes. She underwent left cardiac catheterization and had patent CAD with no coronary intervention. Continue aspirin and Plavix at this time. 3. Her blood pressure is well-controlled. 4. Her LDL goal is less than 55. Her LDL is 55. On a statin. 5. The patient does have chronic atrial fibrillation. She is status post watchman's device. 6. The patient does have a history of HFpEF which is currently stable. 7. The patient does have a history of apical hokum. No signs of fluid overload. The patient declines further evaluation with cardiac MRI. 8. The patient does have known PAD. The patient has pain in her bilateral lower extremities. She does have necrotic wounds noted to her left knee and digits of her left foot. Her ZORA is abnormal showing moderate PAD on the right and severe disease on the left. The patient was scheduled to undergo bilateral runoff of the lower extremities today but there was issues with getting access on the patient during her left heart cath last week. So we will plan to proceed with CTA of the abdomen/femoral with runoff in radiology today to evaluate her PAD noninvasively first to see the best approach/access to take with this patient. The patient verbalized understanding. 9. Following her CTA of the abdomen/femoral with runoff then we will plan to proceed with bilateral iliofemoral runoff of the lower extremities due to her worsening PAD. The patient has been educated the risk and benefits of proceeding with bilateral lower extremity runoff. The patient verbalizes understanding and is agreeable in proceeding with the procedure. 10. The patient will be n.p.o. in preparation for lower extremity runoff. 11. She has 20 to 49% stenosis of her bilateral internal carotid arteries and is status post right and left carotid endarterectomy. 12. Further recommendations will be made pending the patient's response to treatment and the results of her CT angiogram of the abdomen/femoral with runoff today and bilateral runoff. Thank you for the opportunity to help dissipate in the care of this patient. All recommendations and orders are per Dr. Lowery. 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 Moderate to severe stenosis of the right renal artery is stable. Moderate stenosis of the left external iliac artery is stable. Chronic occlusion of the bilateral superficial femoral arteries. Chronic occlusion of the bilateral anterior tibial arteries with two-vessel runoff, right greater than left. Visualized portions of the abdomen and pelvis appear stable. Will plan to proceed with left lower extremity runoff tomorrow with right groin access. Will attempt to stent the left external iliac artery to help with inflow to help heal the wounds to her left lower extremity. Depending on the patient's anatomy we will consider stenting her left SFA as well if this is possible. The patient has been educated the risk and benefits of proceeding with left lower extremity runoff with possible intervention to the left lower extremity. The patient verbalizes understanding and is agreeable to proceeding with the procedure. The patient will be n.p.o. after midnight in preparation for left runoff tomorrow. She can drink hot tea and eat a few Cheerios in the morning. The patient is having pain in her bilateral lower extremities, more in the left than the right. Will give her Dilaudid 0.5 mg every 1 hour as needed for pain.
[2023-11-10] MEDS: 0.9 % SODIUM CHLORIDE 50 ML VIAL IV (10:46)
[2023-11-10] MEDS: IOPAMIDOL-370 (76%);100ML BOTTLE 100 ML IV (10:46)
[2023-11-10] MEDS: SODIUM CHLORIDE 0.9% 10ML SYR (RAD ONLY) 10 ML IV (10:47)
[2023-11-10 12:00] VITALS: BP 152/76; PULSE 54; PULSE 70; RESP 18; TEMP 36.7; O2SAT 94
[2023-11-10] MEDS: HYDROMORPHONE 2MG/ML SYRINGE 0.5 MG IV (15:18)
[2023-11-10 15:35] LABS: Basophils # 0.1 K/mm3 (0-0.2); Basophils % 0.4 % (0.1-2.0); Eosinophils % 0.2 % (0.1-12.0); Hematocrit 39.3 % (37.0-47.0); Hemoglobin 11.8 g/dL (12.2-16.2); Lymphocytes # 1.2 K/mm3 (0.7-4.5); Lymphocytes % 8.9 % (10-50); Mean Corpuscular HGB Conc 29.9 g/dL (31.8-35.4); Mean Corpuscular Hemoglobin 23.8 pg (27.0-31.2); Mean Corpuscular Volume 79.6 fl (81-99); Mean Platelet Volume 8.4 fl (7.4-10.4); Monocytes # 0.9 K/mm3 (0.1-1.0); Monocytes % 6.5 % (1.7-9.3); Neutrophils # 11.2 K/mm3 (1.8-7.8); Platelet Count 182 K/mm3 (142-424); Red Blood Count 4.93 M/mm3 (4.20-5.40); Red Cell Distribution Width 18.5 % (11.5-17.5); White Blood Count 13.3 K/mm3 (4.8-10.8)
[2023-11-10 16:00] VITALS: BP 154/69; PULSE 55; PULSE 60; RESP 18; TEMP 36.4; O2SAT 99
[2023-11-10 16:23] LABS: Chloride 98 mmol/L (98-107); Potassium 4.3 mmoL/L (3.5-5.1); Sodium 135 mmol/L (136-145)
[2023-11-10 16:26] LABS: Anion Gap 7.3 mEq/L (5-15); Blood Urea Nitrogen 22 mg/dl (7-17); Calcium 8.9 mg/dl (8.4-10.2); Carbon Dioxide 34 mmol/L (22.0-30.0); Creatinine Clearance Estimated 27 mL/min (50-200); Estimated Glomerular Filt Rate 53 ml/min (>60); GFR (African American) 64 ML/MIN (>60); Glucose 145 mg/dl (74-100)
--- NOTE | 2023-11-10 17:04 | PC.NURSE ---
PT IS RESTING IN BED WITH FAMILY AT BEDSIDE. AMBULATED IN THE [place] WITH PHYSICAL THERAPY THIS SHIFT. EATING AND DRINKING WELL. PT AMBULATED TO THE BATHROOM BUT WAS UNABLE TO HAVE A BOWEL MOVEMENT. UNSTAGEABLE ULCER NOTED TO THE LEFT KNEE WITH DRESSING C/D/I. REDNESS AND SMALL STAGE 2 NOTED TO THE COCCYX. LUNG SOUNDS CLEAR. AFIB ON TELEMETRY. WILL CONTINUE TO MONITOR.
[2023-11-10 20:00] VITALS: BP 129/80; PULSE 59; PULSE 64; RESP 20; TEMP 36.7; O2SAT 96
[2023-11-10] MEDS: PANTOPRAZOLE 40MG TABLET 40 MG PO (21:41)
[2023-11-10] MEDS: ATORVASTATIN 40MG TABLET 40 MG PO (21:41)
[2023-11-10] MEDS: CEFTRIAXONE SODIUM 2 GM in 0.9 % SODIUM CHLORIDE 100 ML IV (21:42)
[2023-11-11] VITALS (41 sets, daily range): BP systolic 116–175; BP diastolic 59–90; PULSE 60–100; RESP 16–20; TEMP 36.4–36.7; O2SAT 93–100; BMI 17.0
--- NOTE | 2023-11-11 06:47 | PC.NURSE ---
pt has stage 2 decubitus ulcer on coccyx. family reports ulcer had healed up. photo taken and drsg applied. pt refuses to turn despite being instructed she has an open wound.
--- NOTE | 2023-11-11 07:06 | IR_ITS ---
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 COMPLICATIONS NONE Estimated Blood Loss: LESS THAN 10 ML TECHNIQUE 1% lidocaine used anesthetize the right groin the right femoral artery was accessed via the center technique and a 4 Australian sheath is placed in the right femoral artery. Retrograde angiography was performed through the sheath. The JR4 catheter was advanced into the left common iliac artery where left common iliac artery antegrade angiography was performed. Following this therapeutic heparin was administered and the 4 Australian sheath was exchanged for a 6 Australian sheath. A 5 Australian rim catheter was advanced to the distal abdominal aorta and used to cannulate the left common iliac artery. The wire would not traverse through the subtotal occlusion therefore 1% lidocaine was used anesthetize the left groin and the left femoral artery was accessed via the Salinger technique. A 6 Australian sheath is placed in the left femoral artery. The JR4 catheter was advanced through the left external iliac artery stenosis and an advantage wire was used to push through the occlusion in the left common iliac artery. Following this an 8 mm x 57 mm bare-metal balloon expandable stent was deployed at 12 delia. An additional 8 mm x 40 mm self-expanding stent was placed distal to the stent yet still overlapping it followed by an additional 8 mm x 20 mm self-expanding stent placed distal to the 40 mm stent yet still overlapping it. An 8 mm x 20 mm balloon was advanced to the proximal left common iliac artery and deployed at 18 delia post dilating. The balloon was brought back to the left external iliac artery and deployed as high as 10 delia to post dilate the stenotic area. Initial blood pressure in the left femoral artery was 40 mmHg with a 160 mm transtenotic gradient. Following 3 contiguous bare-metal stents there was no gradient and the femoral artery blood pressure equaled that in the aorta. Following this the JR4 catheter was advanced into the right groin and bilateral selective renal angiography was performed. Patient was noted to have renal artery stenosis from CTA. Following this a 6 Australian short LACY guide catheter was placed in the right renal artery and an 014 advantage wire was advanced. A 5 mm x 12 mm Herculink stent was deployed at 18 delia reducing the severe stenosis to 0%. Excellent angiographic results were obtained. At the end of the procedure the apparatus was removed the patient was transferred to the postop putting in stable condition for sheath removal ANGIOGRAPHIC RESULTS Distal abdominal aorta is highly calcified and atheromatous with no stenosis greater than 20% Right common iliac artery has moderate atheromatous plaque with no significant stenosis Left common iliac artery is densely calcified severely atheromatous with proximal 90% stenosis followed by concentric 80% stenosis in the left external iliac artery. The left common femoral artery has 40% stenosis Right renal artery is singular and has an ostial 70 to 80% calcified stenosis Left renal artery is singular and has ostial 20 to 30% stenosis IMPRESSION Critical left common and left external iliac artery atheromatous stenosis creating 160 mm Hinson stenotic gradient Successful reconstruction of the left common and left external iliac artery critical disease reduced to 0 mmHg gradient with 3 contiguous bare-metal stents Severe right renal artery stenosis Successful stent to the right renal artery severe disease reduced to 0% with 1 bare-metal stent PLAN 1. Continue aspirin and Plavix 2. Recommend consideration for transfer to a plastic surgeon where the patellar eschar can be debrided and probable skin graft or skin flap can be performed simultaneously.. I am concerned this ischemic gangrenous area has full dermal necrosis and exposure of the patellar tendon and patella is likely. 3. Avoidance of tobacco products 4. Supportive care Electronically signed by : Sarbjit Floyd MD 11/11/2023 10:53:38
[2023-11-11 08:04] LABS: Basophils # 0.1 K/mm3 (0-0.2); Basophils % 0.5 % (0.1-2.0); Eosinophils # 0.2 K/mm3 (0.0-0.4); Eosinophils % 1.2 % (0.1-12.0); Hematocrit 38.3 % (37.0-47.0); Hemoglobin 11.6 g/dL (12.2-16.2); Lymphocytes # 1.2 K/mm3 (0.7-4.5); Lymphocytes % 8.8 % (10-50); Mean Corpuscular HGB Conc 30.3 g/dL (31.8-35.4); Mean Corpuscular Hemoglobin 24.3 pg (27.0-31.2); Mean Corpuscular Volume 80.2 fl (81-99); Mean Platelet Volume 8.1 fl (7.4-10.4); Monocytes % 7.1 % (1.7-9.3); Neutrophils # 11.2 K/mm3 (1.8-7.8); Neutrophils % 82.4 % (37.0-80.0); Platelet Count 223 K/mm3 (142-424); Red Blood Count 4.78 M/mm3 (4.20-5.40); Red Cell Distribution Width 18.5 % (11.5-17.5); White Blood Count 13.6 K/mm3 (4.8-10.8)
--- NOTE | 2023-11-11 08:20 | EXP.ACUTE.PN ---
Subjective *Date: 11/11/23 *Time: 08:55 Interval history: Patient states she did well overnight. She denies chest pain and shortness of breath. She is n.p.o. for procedure this morning. She had CTA of the abdomen with results as follows. She is eating as usual. She is ambulated in the [place] with physical therapy without notes. Heart rate is greatly improved with the range from 70-90.CBC with white blood cell count of 13,600 hemoglobin of 11.6 hematocrit of 30 blood chemistries show BUN of 22 and creatinine of 1 Abdominal CTA for 03/2024 results: IMPRESSION: Severe stenosis of the proximal superior mesenteric artery, stable. Moderate to severe stenosis of the right renal artery is stable. Moderate stenosis of the left external iliac artery is stable. Chronic occlusion of the bilateral superficial femoral arteries. Chronic occlusion of the bilateral anterior tibial arteries with two-vessel runoff, right greater than left. Visualized portions of the abdomen and pelvis appear stable. Medical Exam Vital signs and Labs for Last 24 Hours: Vital Signs Temp Pulse Pulse Resp BP Pulse Ox O2 Del Method 11/11/23 07:34 Room Air 11/11/23 05:00 Room Air 11/11/23 04:00 94 H 11/11/23 04:00 97.8 F 80 16 159/73 H 95 Room Air 11/11/23 03:00 Room Air 11/11/23 01:00 Room Air 11/11/23 00:00 60 11/11/23 00:00 97.9 F 66 17 133/59 L 98 11/10/23 23:00 Room Air 11/10/23 21:00 Room Air 11/10/23 20:00 59 L 11/10/23 20:00 Room Air 11/10/23 20:00 98.0 F 64 20 129/80 96 Room Air 11/10/23 18:42 Room Air 11/10/23 16:56 Nasal Cannula 11/10/23 16:00 60 11/10/23 16:00 97.5 F L 55 L 18 154/69 H 99 Nasal Cannula 11/10/23 14:44 Room Air 11/10/23 12:56 Room Air 11/10/23 12:00 98.1 F 54 L 18 152/76 H 94 L Room Air 11/10/23 12:00 70 11/10/23 08:28 Room Air O2 Flow Rate 11/11/23 07:34 11/11/23 05:00 11/11/23 04:00 11/11/23 04:00 11/11/23 03:00 11/11/23 01:00 11/11/23 00:00 11/11/23 00:00 11/10/23 23:00 11/10/23 21:00 11/10/23 20:00 11/10/23 20:00 11/10/23 20:00 11/10/23 18:42 11/10/23 16:56 1 11/10/23 16:00 11/10/23 16:00 1 11/10/23 14:44 11/10/23 12:56 11/10/23 12:00 11/10/23 12:00 11/10/23 08:28 Intake and Output 11/10/23 11/11/23 11/11/23 19:59 03:59 11:59 Intake Total 585 / 585 Output Total 1000 / 1000 0 / 1000 0 / 1000 Balance -415 / -415 0 / -415 0 / -415 Intake: Intake, Oral Amount 335 / 335 CBI Fluid - Amount Retained 250 / 250 Domingo 250 / 250 Output: Output, Urine Amount 1000 / 1000 0 / 1000 0 / 1000 Other: Number of Unmeasured Voids 1 1 Weight 90 lb 3.2 oz Patient Weight 11/11/23 11:59 Weight 90 lb 3.2 oz Laboratory Results - last 24 hr 11/10/23 15:00: WBC 13.3 H, RBC 4.93, Hgb 11.8 L, Hct 39.3, MCV 79.6 L, MCH 23.8 L, MCHC 29.9 L, RDW 18.5 H, Plt Count 182, MPV 8.4, Neut % (Auto) 84.0 H, Lymph % (Auto) 8.9 L, Gregg % (Auto) 6.5, Eos % (Auto) 0.2, Baso % (Auto) 0.4, Neut # (Auto) 11.2 H, Lymph # (Auto) 1.2, Gregg # (Auto) 0.9, Eos # (Auto) 0.0, Baso # (Auto) 0.1 11/10/23 16:08: Sodium 135 L, Potassium 4.3, Chloride 98, Carbon Dioxide 34 H, Anion Gap 7.3, BUN 22 H, Creatinine 1.00, Estimated Creat Clear 27, Estimated GFR 53 L, Est GFR ( Amer) 64, Glucose 145 H, Calcium 8.9 I & O for Labs for Last 24 Hours: Intake & Output 11/08/23 11/09/23 11/10/23 11/11/23 11:59 11:59 11:59 11:59 Intake Total 730 / 730 1330 / 1330 540 / 540 585 / 585 Output Total 1225 / 1225 900 / 900 800 / 800 1000 / 1000 Balance -495 / -495 430 / 430 -260 / -260 -415 / -415 Weight 84 lb 15.811 oz 84 lb 15.811 oz 84 lb 6.993 oz 90 lb 3.2 oz Constitutional: Present no acute distress, thin and cachectic Respiratory: Present CTA bilaterally (Anteriorly and posteriorly) Cardiac: Present Reg Rate and Rhythm and Audible Murmur GI: Present soft and normal bowel sounds; Absent distention or tenderness Extremities: Present full ROM; Absent tenderness or edema Comment:: Dressing on left knee clean and dry no surrounding erythema Neuro: Present alert, awake and oriented x 3 (More appropriate today) Assessment and Plan *Assessment and plan (1) Accidental digoxin overdose: Status: Acute Category: Medical Code(s): T46.0X1A - Poisoning by cardiac-stimulant glycosides and drugs of similar action, accidental (unintentional), initial encounter (2) Acute UTI: Status: Acute Category: Medical Code(s): N39.0 - Urinary tract infection, site not specified (3) Urinary retention: Status: Acute Category: Medical Code(s): R33.9 - Retention of urine, unspecified (4) Leg wound, left: Status: Acute Category: Medical Code(s): S81.802A - Unspecified open wound, left lower leg, initial encounter (5) Abnormal EKG: Status: Acute Category: Medical Code(s): R94.31 - Abnormal electrocardiogram [ECG] [EKG] (6) Altered mental status: Status: Acute Category: Medical Code(s): R41.82 - Altered mental status, unspecified (7) Smoking greater than 30 pack years: Status: Acute Category: Social Hx Code(s): F17.210 - Nicotine dependence, cigarettes, uncomplicated (8) COPD mixed type: Status: Acute Category: Medical Code(s): J44.9 - Chronic obstructive pulmonary disease, unspecified (9) Presence of Watchman left atrial appendage closure device: Status: Chronic Category: Medical Code(s): Z95.818 - Presence of other cardiac implants and grafts (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 transplanted heart: [place] heart Qualified Code(s): I25.10 - Atherosclerotic heart disease of [place] coronary artery without angina pectoris Category: Medical Code(s): I25.10 - Atherosclerotic heart disease of [place] coronary artery without angina pectoris (13) HOCM (hypertrophic obstructive cardiomyopathy): Status: Chronic Category: Medical Code(s): I42.1 - Obstructive hypertrophic cardiomyopathy (14) Pulmonary HTN: Status: Chronic Category: Medical Code(s): I27.20 - Pulmonary hypertension, unspecified (15) Hypertension: Status: Chronic Qualifiers: Hypertension type: essential hypertension Qualified Code(s): I10 - Essential (primary) hypertension Category: Medical Code(s): I10 - Essential (primary) hypertension (16) Hyperlipidemia: Status: Chronic Qualifiers: Hyperlipidemia type: mixed hyperlipidemia Qualified Code(s): E78.2 - Mixed hyperlipidemia Category: Medical Code(s): E78.5 - Hyperlipidemia, unspecified (17) Gastroesophageal reflux disease: Status: Chronic Qualifiers: Esophagitis presence: esophagitis presence not specified Qualified Code(s): K21.9 - Gastro-esophageal reflux disease without esophagitis Category: Medical Code(s): K21.9 - Gastro-esophageal reflux disease without esophagitis (18) Status post carotid endarterectomy: Status: Chronic Category: Surgical Code(s): Z98.890 - Other specified postprocedural states (19) Anxiety disorder: Status: Chronic Category: Medical Code(s): F41.9 - Anxiety disorder, unspecified (20) Bradycardia: Status: Acute Category: Medical Code(s): R00.1 - Bradycardia, unspecified Plan Patient for runoff today. Heart rate much improved and remains off metoprolol and Cardizem. Probably home this p.m.
[2023-11-11 08:31] LABS: Chloride 99 mmol/L (98-107); Potassium 4.7 mmoL/L (3.5-5.1); Sodium 136 mmol/L (136-145)
[2023-11-11 08:34] LABS: Anion Gap 6.7 mEq/L (5-15); Blood Urea Nitrogen 23 mg/dl (7-17); Calcium 8.9 mg/dl (8.4-10.2); Carbon Dioxide 35 mmol/L (22.0-30.0); Creatinine Clearance Estimated 28 mL/min (50-200); Estimated Glomerular Filt Rate 60 ml/min (>60); GFR (African American) 73 ML/MIN (>60); Glucose 102 mg/dl (74-100)
[2023-11-11] MEDS: ASPIRIN EC 81MG TABLET 81 MG PO (08:52)
[2023-11-11] MEDS: FLUTICASONE PROP 50MCG NASAL SPRAY 16GM 2 SPRAY NS (08:52)
[2023-11-11] MEDS: FUROSEMIDE 20MG TABLET 20 MG PO ×2 (08:52→17:11)
[2023-11-11] MEDS: CLOPIDOGREL 75MG TAB 75 MG PO (08:52)
[2023-11-11] MEDS: BUSPIRONE HCL 10 MG TABLET PO ×2 (08:52→20:42)
[2023-11-11] MEDS: SPIRONOLACTONE 25MG TABLET 25 MG PO (08:52)
[2023-11-11] MEDS: HEPARIN 1,000 UNITS/500ML NS (CATH LAB) 3000 UNIT IV (09:31)
[2023-11-11] MEDS: 0.9 % SODIUM CHLORIDE 500 ML 25 ML IV (09:31)
[2023-11-11] MEDS: LIDOCAINE 1% 10ML MDV 20 ML IJ (09:32)
[2023-11-11] MEDS: diphenhydrAMINE 50MG/ML VIAL 50 MG IV ×2 (09:32→09:37)
[2023-11-11] MEDS: MIDAZOLAM HCL 1MG/1ML 5ML VIAL 1 MG IV ×2 (09:42→09:51)
[2023-11-11] MEDS: FENTANYL 100MCG/2ML VIAL 25 MCG IV ×2 (09:42→09:51)
[2023-11-11] MEDS: LABETALOL 20MG/4ML SYRINGE 20 MG IV (09:44)
[2023-11-11] MEDS: HEPARIN 1,000 UNITS/ML 10ML VIAL (CATH LAB) 10000 UNIT IV (09:46)
--- NOTE | 2023-11-11 10:11 | EXP.CARD.PN ---
Subjective Subjective Date: 11/11/23 Time: 08:30 Principal diagnosis: Digoxin toxicity, confusion, UTI, PAD Interval history: The patient is doing well this morning. No events overnight. She denies any chest pain or pressure. She denies any shortness of breath or edema. She denies any fever, chills, nausea, vomiting, diarrhea, PND or orthopnea. She still does have bilateral lower extremity pain. The left leg is worse than the right. She does have a wound to her knee on the left lower extremity and her toes on the left lower extremity. She did take Dilaudid overnight for pain which did help to improve her pain but is still present. Exam Data for Last 24 hours Vital signs and Labs for Last 24 Hours: Temp Pulse Resp BP Pulse Ox O2 Del Method O2 Flow Rate 97.9 F 70 16 172/90 H 98 Room Air 1 11/11/23 08:00 11/11/23 08:00 11/11/23 08:00 11/11/23 09:44 11/11/23 08:00 11/11/23 08:00 11/10/23 16:56 Laboratory Results - last 24 hr 11/10/23 15:00: WBC 13.3 H, RBC 4.93, Hgb 11.8 L, Hct 39.3, MCV 79.6 L, MCH 23.8 L, MCHC 29.9 L, RDW 18.5 H, Plt Count 182, MPV 8.4, Neut % (Auto) 84.0 H, Lymph % (Auto) 8.9 L, [place] % (Auto) 6.5, Eos % (Auto) 0.2, Baso % (Auto) 0.4, Neut # (Auto) 11.2 H, Lymph # (Auto) 1.2, [place] # (Auto) 0.9, Eos # (Auto) 0.0, Baso # (Auto) 0.1 11/10/23 16:08: Sodium 135 L, Potassium 4.3, Chloride 98, Carbon Dioxide 34 H, Anion Gap 7.3, BUN 22 H, Creatinine 1.00, Estimated Creat Clear 27, Estimated GFR 53 L, Est GFR ( Amer) 64, Glucose 145 H, Calcium 8.9 11/11/23 07:54: WBC 13.6 H, RBC 4.78, Hgb 11.6 L, Hct 38.3, MCV 80.2 L, MCH 24.3 L, MCHC 30.3 L, RDW 18.5 H, Plt Count 223, MPV 8.1, Neut % (Auto) 82.4 H, Lymph % (Auto) 8.8 L, [place] % (Auto) 7.1, Eos % (Auto) 1.2, Baso % (Auto) 0.5, Neut # (Auto) 11.2 H, Lymph # (Auto) 1.2, [place] # (Auto) 1.0, Eos # (Auto) 0.2, Baso # (Auto) 0.1, Sodium 136, Potassium 4.7, Chloride 99, Carbon Dioxide 35 H, Anion Gap 6.7, BUN 23 H, Creatinine 0.90, Estimated Creat Clear 28, Estimated GFR 60, Est GFR ( Amer) 73, Glucose 102 H D, Calcium 8.9 I & O for Last 24 hours: Intake & Output 11/08/23 11/09/23 11/10/23 11/11/23 23:59 23:59 23:59 23:59 Intake Total 1550 / 1550 660 / 660 585 / 585 Output Total 1300 / 1300 300 / 300 1800 / 1800 0 / 0 Balance 250 / 250 360 / 360 -1215 / -1215 0 / 0 Weight 84 lb 15.811 oz 84 lb 15.811 oz 84 lb 6.993 oz 90 lb 3.2 oz Microbiology Reports for the Last 24 Hours: Microbiology 11/05/23 19:56 Urine,Clean Catch Urine Culture - Final Constitutional Constitutional: no acute distress *Routine Respiratory Exam Respiratory: Present CTA bilaterally and symmetric chest movement *Routine Cardiovascular Exam Cardiovascular: Present RRR, Normal S1 and Normal S2 *Routine Abdominal Exam Abdominal: Present soft and normoactive bowel sounds; Absent tenderness *Routine Extremities Exam Extremities: Present full ROM and normal capillary refill; Absent edema Comments: Bilateral legs are pale and warm, bilateral pulses present but weak. Eschar like wound noted on left knee with mild erythema surrounding area. Small necrotic wounds noted to distal 3rd, 4th and 5th digits on left food. *Routine Skin Exam Skin: Present intact, dry and warm Detailed Neck Exam: Thyroids Thyroid: Absent bruit Progress Note: A&P Assessment and plan (1) Peripheral arterial disease: Status: Acute (2) Abnormal ankle brachial index (ZORA): Status: Acute (3) Accidental digoxin overdose: Status: Acute (4) Acute UTI: Status: Acute (5) Leg wound, left: Status: Acute (6) Abnormal EKG: Status: Acute (7) Smoking greater than 30 pack years: Status: Acute (8) COPD mixed type: Status: Acute (9) Presence of Watchman left atrial appendage closure device: Status: Chronic (10) parts counterman current use of anticoagulant: Status: Chronic (11) CAD (coronary artery disease): Status: Chronic (12) HOCM (hypertrophic obstructive cardiomyopathy): Status: Chronic (13) Pulmonary HTN: Status: Chronic (14) Hypertension: Status: Chronic (15) Hyperlipidemia: Status: Chronic (16) Gastroesophageal reflux disease: Status: Chronic (17) Status post carotid endarterectomy: Status: Chronic (18) Anxiety disorder: Status: Chronic (19) Bradycardia: Status: Acute (20) Renal artery stenosis: Status: Acute Assessment and Plan Assessment and Plan for All Diagnoses:: Plan: 1. The patient was admitted to the hospital with a digoxin overdose and UTI. The patient's digoxin has been stopped at this time. Will continue to hold digoxin due to the digoxin overdose. 2. The patient does have a history of coronary artery disease. She did have an elevated troponin on admission with EKG changes. She underwent left cardiac catheterization and had patent CAD with no coronary intervention. Continue aspirin and Plavix at this time. 3. The patient does have known PAD. The patient has pain in her bilateral lower extremities, L is worse than R. She does have necrotic wounds noted to her left knee and digits of her left foot. Her ZORA is abnormal showing moderate PAD on the right and severe disease on the left. CTA of abdomen/femoral shows occluded SFA bilaterally and moderate stenosis to the left external iliac artery. There is chronic occlusion of the bilateral anterior tibial arteries with two-vessel runoff, right greater than left. The patient is scheduled to undergo LLE runoff today. 4. The patient has been educated the risk and benefits of proceeding with bilateral lower extremity runoff. The patient verbalizes understanding and is agreeable in proceeding with the procedure. 5. The patient will be n.p.o. in preparation for lower extremity runoff. 6. Her blood pressure is well-controlled. 7. Her LDL goal is less than 55. Her LDL is 55. On a statin. 8. The patient does have chronic atrial fibrillation. She is status post watchman's device. 9. The patient does have a history of HFpEF which is currently stable. 10. 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 No signs of fluid overload. The patient declines further evaluation with cardiac MRI. 11. She has 20 to 49% stenosis of her bilateral internal carotid arteries and is status post right and left carotid endarterectomy. 12. Continue IV Dilaudid as needed for pain. 13. Further recommendations will be made pending the patient's response to treatment and the results of her CT angiogram of the abdomen/femoral with runoff today and bilateral runoff. Thank you for the opportunity to help participate in the care of this patient. All recommendations and orders are per Dr. Lowery. Addendum: LLE runoff shows: Critical left common and left external iliac artery atheromatous stenosis creating 160 mm Hinson stenotic gradient Successful reconstruction of the left common and left external iliac artery critical disease reduced to 0 mmHg gradient with 3 contiguous bare-metal stents Severe right renal artery stenosis Successful stent to the right renal artery severe disease reduced to 0% with 1 bare-metal stent PLAN 1. Continue aspirin and Plavix 2. Recommend consideration for transfer to a plastic surgeon where the patellar eschar can be debrided and probable skin graft or skin flap can be performed simultaneously.. I am concerned this ischemic gangrenous area has full dermal necrosis and exposure of the patellar tendon and patella is likely. 3. Avoidance of tobacco products 4. Supportive care Recommend transfer to a plastic surgeon for consideration of a skin graft for skin flap to her left knee as this ischemic gangrenous area is likely full dermal necrosis.
[2023-11-11] MEDS: PROTAMINE SULFATE 50MG/5ML VIAL (CATH LAB) 50 MG IV (10:13)
--- NOTE | 2023-11-11 11:04 | DIET.NUTRFU ---
Reviewing chart patient has not had BM since 11/06. She is having cardiac procedure today. Discharge to [facility] when ready. Notified nursing of no BM and no bowel regimen in place. She is on multiple pain meds that could be causing constipation. Meal intake has been fair to good at 50-75%. Will continue to follow for nutritional needs, nursing noted stage 1 to coccyx. Supplements/high protein foods were discussed with patient upon interview
[2023-11-11] MEDS: IOPAMIDOL-250 (51%) 100ML BOT 90 ML IV (11:26)
[2023-11-11] MEDS: IOPAMIDOL-370 (76%);100ML BOTTLE 40 ML IV (11:27)
--- NOTE | 2023-11-11 11:37 | XR_ITS ---
FINAL REPORT CLINICAL HISTORY: left knee wound worrisome for necrosis FINDINGS: Left knee Two views were obtained. There is no acute fracture or dislocation. There are mild degenerative changes. Meniscal calcification is identified. There is no evidence of bony erosion. There is vascular calcification. IMPRESSION: Degenerative and chronic appearing findings. Reviewed, Interpreted and Dictated by Doug Thomas III, MD Transcribed by Akanksha Urias Authenticated and [facility]
[2023-11-11] MEDS: ACETAMINOPHEN 325MG TAB 650 MG PO (14:58)
--- NOTE | 2023-11-11 14:59 | PC.NURSE ---
SINCE PT HAS ARRIVED BACK TO THE FLOOR FROM [facility] SHE HAS REFUSED TO LAY FLAT AND TO KEEP HER LEGS STRAIGHT. PT HAS BEEN TOLD BY STAFF AND FAMILY THAT SHE IS AT INCREASED RISK FOR BLEEDING AND SHE NEEDED TO LAY FLAT TILL 1700. PT HAS STATED SEVERAL TIMES SHE DID NOT CARE IF SHE STARTED BLEEDING SHE WAS NOT COMFORTABLE LAYING FLAT AND SHE WOULD SIT UP IF SHE WANTED. PT IS ALERT AND ORIENTED X4. PURWICK IN PLACE. MEDICATED PER MAR FOR BACK DISCOMFORT. PT REFUSED DILAUDID B/C SHE STATED SHE DID NOT LIKE THE WAY IT MADE HER FEEL YESTERDAY. STAFF AND FAMILY AT BEDSIDE AT THIS TIME CONTINUOUSLY EDUCATING PT HOW IMPORTANT IT IS TO REMAIN FLAT.
[2023-11-11 17:16] LABS: CATHL Activated Clotting Time > 400 SEC (74-125)
--- NOTE | 2023-11-11 17:28 | PC.NURSE ---
PT REQUESTED TO GET OOB AFTER 170O TO USE THE BSC. VSS. BILATERAL CATH SITE DRESSINGS C/D/I. NO SWELLING NOTED TO BLE. 1+ PALPABLE PULSES. UNSTAGEABLE ULCER NOTED TO THE LEFT KNEE WITH DRESSING C/D/I. REDNESS AND SMALL STAGE 2 NOTED TO COCCYX WITH DRESSING C/D/I. WILL CONTINUE TO MONITOR.
[2023-11-11] MEDS: PANTOPRAZOLE 40MG TABLET 40 MG PO (20:42)
[2023-11-11] MEDS: ATORVASTATIN 40MG TABLET 40 MG PO (20:42)
[2023-11-11] MEDS: CEFTRIAXONE SODIUM 2 GM in 0.9 % SODIUM CHLORIDE 100 ML IV (21:15)
--- NOTE | 2023-11-11 22:13 | PC.NURSE ---
PATIENT A/O X 4. SON AT BEDSIDE TILL 2100. BED ALARM IN USE DUE TO PATIENTS IMPULSIVE BEHAVIOR EARLIER TODAY. NEW IV PLACE #22 LFA OLD SITE LEAKINING AT INSERTION SITE LAC AREA. FEET VERY SENSITIVE TO TOUCH. IS ABLE TO AMBULATE TO BR WITH WALKER AND ASSIST X 1. HAD SOME DIFFICULTY SWALLOWING PILLS. MEDS GIVEN WHOLE IN APPLESAUCE. DRSGS TO DENYS C/D/I.
--- NOTE | 2023-11-11 22:25 | PC.NURSE ---
SON RETURNED AND AT BEDSIDE.
[2023-11-12] VITALS: BP 154/74; PULSE 83; PULSE 86; RESP 16; TEMP 36.6; O2SAT 93
[2023-11-12 04:00] VITALS: BP 136/70; PULSE 95; PULSE 97; RESP 16; TEMP 36.6; O2SAT 99; BMI 17.0
[2023-11-12 07:40] VITALS: BP 147/85; PULSE 96; RESP 18; TEMP 36.5; O2SAT 94
--- NOTE | 2023-11-12 07:44 | ECG_ITS ---
APPROVED REPORT Exam: Resting ECG HR:98 bpm ECG Measurements Heart Rate 98 AXES QRSd 79 QRS -19 QT 279 T 240 QTc 334 Conclusion ATRIAL FIBRILLATION SEPTAL MYOCARDIAL INFARCTION , PROBABLY OLD [40+ ms Q WAVE IN V1/V2] ST DEVIATION AND MODERATE T-WAVE ABNORMALITY, CONSIDER INFERIOR ISCHEMIA [-0.1+ mV T-WAVE IN II/aVF] ABNORMAL ECG UNCONFIRMED REPORT Electronically signed by : Janes Naranjo MD 11/13/2023 19:24:17
--- NOTE | 2023-11-12 07:54 | PC.NURSE ---
Rhythm change noted on telemetry. EKG obtained, [facility] contacted. New orders received to give D5 1/2 NS 500 ml @ 200 ml/hr.
[2023-11-12 08:00] VITALS: PULSE 70
[2023-11-12] MEDS: DEX 5% IV (08:21)
[2023-11-12] MEDS: NACL 0.45% IV (08:21)
[2023-11-12] MEDS: SPIRONOLACTONE 25MG TABLET 25 MG PO (08:22)
[2023-11-12] MEDS: BUSPIRONE HCL 10 MG TABLET PO ×2 (08:22→12:44)
[2023-11-12] MEDS: ASPIRIN EC 81MG TABLET 81 MG PO (08:22)
[2023-11-12] MEDS: CLOPIDOGREL 75MG TAB 75 MG PO (08:22)
[2023-11-12] MEDS: FUROSEMIDE 20MG TABLET 20 MG PO (08:22)
--- NOTE | 2023-11-12 08:37 | P.PN_ITS ---
Subjective *Date: 11/12/23 *Time: 08:37 Interval history: Patient states she is tired this morning. The pain in her legs is slightly less. She denies any other pain. She was able to eat breakfast. Medical Exam Vital signs and Labs for Last 24 Hours: Vital Signs Temp Pulse Pulse Resp BP BP Pulse Ox 11/12/23 08:00 11/12/23 07:40 97.7 F 96 H 18 147/85 H 94 L 11/12/23 06:28 11/12/23 05:00 11/12/23 04:00 97 H 11/12/23 04:00 98 F 95 H 16 136/70 99 11/12/23 02:57 11/12/23 00:49 11/12/23 00:00 97.9 F 83 16 154/74 H 93 L 11/12/23 00:00 86 11/11/23 22:57 11/11/23 21:00 11/11/23 20:00 98.0 F 83 16 143/60 H 96 11/11/23 20:00 77 11/11/23 19:50 96 11/11/23 18:36 11/11/23 17:00 11/11/23 16:15 93 H 20 158/86 H 93 L 11/11/23 16:00 80 11/11/23 15:15 92 H 16 130/77 98 11/11/23 15:00 11/11/23 14:45 80 18 175/70 H 100 11/11/23 14:45 80 18 175/70 H 100 11/11/23 14:15 78 18 116/90 98 11/11/23 13:45 97.6 F 100 H 16 145/82 H 93 L 11/11/23 13:15 81 18 135/71 97 11/11/23 13:00 76 18 156/74 H 98 11/11/23 12:45 78 16 162/74 H 98 11/11/23 12:30 65 18 157/78 H 99 11/11/23 12:15 76 18 158/74 H 99 11/11/23 12:10 65 18 144/60 H 99 11/11/23 12:05 80 18 155/80 H 100 11/11/23 12:00 76 18 157/86 H 100 11/11/23 11:55 71 18 131/77 99 11/11/23 11:50 79 18 137/76 100 11/11/23 11:45 85 16 133/66 95 11/11/23 11:40 72 18 155/74 H 98 11/11/23 11:35 70 18 139/66 99 11/11/23 11:30 79 16 128/63 97 11/11/23 11:25 76 18 132/81 98 11/11/23 11:20 77 18 128/76 99 11/11/23 11:15 79 18 133/71 100 11/11/23 11:10 72 18 151/64 H 100 11/11/23 11:05 71 16 157/88 H 94 L 11/11/23 11:00 73 18 155/83 H 99 11/11/23 10:55 68 18 153/81 H 94 L 11/11/23 10:50 75 18 160/68 H 100 11/11/23 10:45 78 18 157/80 H 100 11/11/23 10:40 79 16 128/80 94 L 11/11/23 10:35 77 18 153/72 H 100 11/11/23 10:30 69 18 167/86 H 99 11/11/23 10:27 68 11/11/23 10:25 72 18 159/72 H 97 11/11/23 10:20 79 18 169/74 H 99 11/11/23 09:44 172/90 H O2 Del Method 11/12/23 08:00 Room Air 11/12/23 07:40 Room Air 11/12/23 06:28 Room Air 11/12/23 05:00 Room Air 11/12/23 04:00 11/12/23 04:00 11/12/23 02:57 Room Air 11/12/23 00:49 Room Air 11/12/23 00:00 11/12/23 00:00 11/11/23 22:57 Room Air 11/11/23 21:00 Room Air 11/11/23 20:00 Room Air 11/11/23 20:00 11/11/23 19:50 Room Air 11/11/23 18:36 Room Air 11/11/23 17:00 Room Air 11/11/23 16:15 Room Air 11/11/23 16:00 11/11/23 15:15 Room Air 11/11/23 15:00 Room Air 11/11/23 14:45 Room Air 11/11/23 14:45 Room Air 11/11/23 14:15 Room Air 11/11/23 13:45 Room Air 11/11/23 13:15 Room Air 11/11/23 13:00 Room Air 11/11/23 12:45 Room Air 11/11/23 12:30 Room Air 11/11/23 12:15 Room Air 11/11/23 12:10 Room Air 11/11/23 12:05 Room Air 11/11/23 12:00 Room Air 11/11/23 11:55 Room Air 11/11/23 11:50 Room Air 11/11/23 11:45 Room Air 11/11/23 11:40 Room Air 11/11/23 11:35 Room Air 11/11/23 11:30 Room Air 11/11/23 11:25 Room Air 11/11/23 11:20 Room Air 11/11/23 11:15 Room Air 11/11/23 11:10 Room Air 11/11/23 11:05 Room Air 11/11/23 11:00 Room Air 11/11/23 10:55 Room Air 11/11/23 10:50 Room Air 11/11/23 10:45 Room Air 11/11/23 10:40 Room Air 11/11/23 10:35 Room Air 11/11/23 10:30 Room Air 11/11/23 10:27 11/11/23 10:25 Room Air 11/11/23 10:20 11/11/23 09:44 Intake and Output 11/11/23 11/12/23 11/12/23 19:59 03:59 11:59 Intake Total 270 / 830 340 / 830 220 / 830 Output Total 0 Balance 270 / 829 339 / 829 220 / 829 Intake: Intake, Oral Amount 270 / 730 240 / 730 220 / 730 Intake, Total IV Amount 100 / 100 Ceftriaxone Sodium 2 gm In 0.9 100 / 100 % Sodium Chloride 100 ml @ 200 mls/hr IV Q24H [facility] Rx#:[id number] Output: Output, Urine Amount 0 Other: Number of Voids 1 Number of Unmeasured Voids 1 1 Weight 90 lb 3.199 oz Patient Weight 11/12/23 11:59 Weight 90 lb 3.199 oz Laboratory Results - last 24 hr 11/11/23 07:54: Sodium 136, Potassium 4.7, Chloride 99, Carbon Dioxide 35 H, Anion Gap 6.7, BUN 23 H, Creatinine 0.90, Estimated Creat Clear 28, Estimated GFR 60, Est GFR ( Amer) 73, Glucose 102 H D, Calcium 8.9 11/11/23 09:51: Activated Clotting Time > 400 H* I & O for Labs for Last 24 Hours: Intake & Output 11/09/23 11/10/23 11/11/23 11/12/23 11:59 11:59 11:59 11:59 Intake Total 1330 / 1330 540 / 540 585 / 585 830 / 830 Output Total 900 / 900 800 / 1800 1000 / 1000 Balance 430 / 430 -260 / -1260 -415 / -415 829 / 829 Weight 84 lb 15.811 oz 84 lb 6.993 oz 90 lb 3.2 oz 90 lb 3.199 oz Microbiology Reports for the Last 24 Hours: Microbiology 11/05/23 19:56 Urine,Clean Catch Urine Culture - Final Constitutional: Present no acute distress, thin and cachectic Respiratory: Present CTA bilaterally (Anteriorly and posteriorly) Cardiac: Present Reg Rate and Rhythm and Audible Murmur GI: Present soft and normal bowel sounds; Absent distention or tenderness Extremities: Present full ROM; Absent tenderness or edema Comment:: Wound on left knee is improving since stent placement Neuro: Present alert, awake and oriented x 3 (More appropriate today) Assessment and Plan *Assessment and plan (1) Accidental digoxin overdose: Status: Acute Category: Medical Code(s): T46.0X1A - Poisoning by cardiac-stimulant glycosides and drugs of similar action, accidental (unintentional), initial encounter (2) Acute UTI: Status: Acute Category: Medical Code(s): N39.0 - Urinary tract infection, site not specified (3) Urinary retention: Status: Acute Category: Medical Code(s): R33.9 - Retention of urine, unspecified (4) Leg wound, left: Status: Acute Category: Medical Code(s): S81.802A - Unspecified open wound, left lower leg, initial encounter (5) Abnormal EKG: Status: Acute Category: Medical Code(s): R94.31 - Abnormal electrocardiogram [ECG] [EKG] (6) Altered mental status: Status: Acute Category: Medical Code(s): R41.82 - Altered mental status, unspecified (7) Smoking greater than 30 pack years: Status: Acute Category: Social Hx Code(s): F17.210 - Nicotine dependence, cigarettes, uncomplicated (8) COPD mixed type: Status: Acute Category: Medical Code(s): J44.9 - Chronic obstructive pulmonary disease, unspecified (9) Presence of Watchman left atrial appendage closure device: Status: Chronic Category: Medical Code(s): Z95.818 - Presence of other cardiac implants and grafts (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 transplanted heart: [place] heart Associated angina: without angina Qualified Code(s): I25.10 - Atherosclerotic heart disease of [place] coronary artery without angina pectoris Category: Medical Code(s): I25.10 - Atherosclerotic heart disease of [place] coronary artery without angina pectoris (13) HOCM (hypertrophic obstructive cardiomyopathy): Status: Chronic Category: Medical Code(s): I42.1 - Obstructive hypertrophic cardiomyopathy (14) Pulmonary HTN: Status: Chronic Category: Medical Code(s): I27.20 - Pulmonary hypertension, unspecified (15) Hypertension: Status: Chronic Qualifiers: Hypertension type: essential hypertension Qualified Code(s): I10 - Essential (primary) hypertension Category: Medical Code(s): I10 - Essential (primary) hypertension (16) Hyperlipidemia: Status: Chronic Qualifiers: Hyperlipidemia type: mixed hyperlipidemia Qualified Code(s): E78.2 - Mixed hyperlipidemia Category: Medical Code(s): E78.5 - Hyperlipidemia, unspecified (17) Gastroesophageal reflux disease: Status: Chronic Qualifiers: Esophagitis presence: esophagitis presence not specified Qualified Code(s): K21.9 - Gastro-esophageal reflux disease without esophagitis Category: Medical Code(s): K21.9 - Gastro-esophageal reflux disease without esophagitis (18) Status post carotid endarterectomy: Status: Chronic Category: Surgical Code(s): Z98.890 - Other specified postprocedural states (19) Anxiety disorder: Status: Chronic Category: Medical Code(s): F41.9 - Anxiety disorder, unspecified (20) Bradycardia: Status: Acute Category: Medical Code(s): R00.1 - Bradycardia, unspecified Plan Patient was reevaluated by physical therapy yesterday and he felt her wounds should be painted with Betadine and we should await changes now that reperfusion has been performed. He felt debridement would be risky but may be necessary at a later date. She can likely be discharged to [place] today. Will discuss with Dr. Puente.
--- NOTE | 2023-11-12 08:37 | DIET.NUTRFU ---
increased protein needs post sx with stage 2 noted to coccyx and unstageable to L knee, started ensure with trays. Nursing noted difficulty with pills post sx, will continue to monitor. Was tolerating regular diet prior to sx. No BM noted since 11/06, son reported one yesterday to provider. Patient is on multiple pain meds, bowel regimen maybe beneficial. Miralax started. Dextrose was provided post sx. Plans to discharge to [facility] when ready
[2023-11-12] MEDS: FLUTICASONE PROP 50MCG NASAL SPRAY 16GM 2 SPRAY NS (09:52)
[2023-11-12] MEDS: POLYETHYLENE GLYCOL 3350 17 GM PACKET PO (10:19)
[2023-11-12] MEDS: TIOTROPIUM 18MCG/PUFF INHALER 1 CAP IH (10:35)
--- NOTE | 2023-11-12 11:03 | P.PN_ITS ---
Subjective Subjective Date: 11/12/23 Time: 09:00 Principal diagnosis: Digoxin toxicity, confusion, UTI, PAD Interval history: The patient states that she is still having pain in her bilateral lower extremities and this is slightly improved from yesterday. She denies any chest pain or pressure. She denies any shortness of breath or edema. She denies any fever, chills, nausea, vomiting, diarrhea, PND or orthopnea. The necrotic wound to her left knee does appear to have improved slightly overnight around the borders of the wound. The redness has improved. The eschar is still present. Her left lower extremity is very warm to the touch today. Exam Data for Last 24 hours Vital signs and Labs for Last 24 Hours: Temp Pulse Resp BP Pulse Ox O2 Del Method O2 Flow Rate 97.7 F 96 H 18 147/85 H 94 L Room Air 1 11/12/23 07:40 11/12/23 07:40 11/12/23 07:40 11/12/23 07:40 11/12/23 07:40 11/12/23 09:00 11/10/23 16:56 Laboratory Results - last 24 hr 11/11/23 09:51: Activated Clotting Time > 400 H* I & O for Last 24 hours: Intake & Output 11/09/23 11/10/23 11/11/23 11/12/23 23:59 23:59 23:59 23:59 Intake Total 660 / 660 585 / 585 610 / 610 720 / 720 Output Total 300 / 300 1800 / 1800 1 / 1 0 / 0 Balance 360 / 360 -1215 / -1215 609 / 609 720 / 720 Weight 84 lb 15.811 oz 84 lb 6.993 oz 90 lb 3.2 oz 90 lb 3.199 oz Microbiology Reports for the Last 24 Hours: Microbiology 11/05/23 19:56 Urine,Clean Catch Urine Culture - Final Constitutional Constitutional: no acute distress *Routine Respiratory Exam Respiratory: Present CTA bilaterally and symmetric chest movement *Routine Cardiovascular Exam Cardiovascular: Present RRR, Normal S1 and Normal S2 *Routine Abdominal Exam Abdominal: Present soft and normoactive bowel sounds; Absent tenderness *Routine Extremities Exam Extremities: Present full ROM and normal capillary refill; Absent edema Comments: Bilateral legs are pale and warm, bilateral pulses present but weak. Eschar like wound noted on left knee with mild erythema surrounding area. Small necrotic wounds noted to distal 3rd, 4th and 5th digits on left food. *Routine Skin Exam Skin: Present intact, dry and warm Detailed Neck Exam: Thyroids Thyroid: Absent bruit Progress Note: A&P Assessment and plan (1) Peripheral arterial disease: Status: Acute (2) Renal artery stenosis: Status: Acute (3) Accidental digoxin overdose: Status: Acute (4) Acute UTI: Status: Acute (5) Urinary retention: Status: Acute (6) Leg wound, left: Status: Acute (7) Abnormal EKG: Status: Acute (8) Altered mental status: Status: Acute (9) Smoking greater than 30 pack years: Status: Acute (10) COPD mixed type: Status: Acute (11) Presence of Watchman left atrial appendage closure device: Status: Chronic (12) CAD (coronary artery disease): Status: Chronic (13) HOCM (hypertrophic obstructive cardiomyopathy): Status: Chronic (14) Pulmonary HTN: Status: Chronic (15) Hypertension: Status: Chronic (16) Hyperlipidemia: Status: Chronic (17) Gastroesophageal reflux disease: Status: Chronic (18) Status post carotid endarterectomy: Status: Chronic (19) Anxiety disorder: Status: Chronic (20) Bradycardia: Status: Acute (21) Tobacco abuse: Status: Chronic Assessment and Plan Assessment and Plan for All Diagnoses:: Plan: 1. The patient was admitted to the hospital with a digoxin overdose and UTI. The patient's digoxin has been stopped at this time. Will continue to hold digoxin due to the digoxin overdose. 2. The patient does have a history of coronary artery disease. She did have an elevated troponin on admission with EKG changes. She underwent left cardiac catheterization and had patent CAD with no coronary intervention. Continue aspirin and Plavix at this time. 3. The patient underwent left lower extremity runoff yesterday and was found to have critical left common and left external iliac disease. She had a 160 mm trans-stenotic gradient. The patient had reconstruction of her left common and left external iliac arteries with 3 bare-metal stents. 4. The patient was also found to have severe right renal artery stenosis. She underwent 1 stent to the right renal artery as well. 5. The patient will be on Plavix and aspirin for dual antiplatelet therapy. 6. Her blood pressure is acceptable. 7. Her LDL goal is less than 55. Her LDL is 55. She is on a statin. 8. Her heart rate is a little higher than we would like. Her digoxin, metoprolol and diltiazem had been stopped due to bradycardia when she was first admitted to this hospital. This was likely from her accidental overdose. Recommend restarting Toprol XL 25 mg p.o. daily for better heart rate control. 9. The patient does have chronic atrial fibrillation. She is status post watchman's device. No anticoagulation at this time. 10. The patient does have a history of HFpEF which is currently stable. 11. The patient does have a history of apical hokum. No signs of fluid overload. She has historically declined cardiac MRI. 12. The patient does have stable carotid artery stenosis with 20 to 49% stenosis bilaterally. She is status post right and left carotid end arterectomies. 13. Dr. Floyd has recommended that the patient be evaluated by plastic surgeon for consideration of a skin graft or a skin flap to her left knee. The patellar eschar will need to be debrided and there is concern that this ischemic gangrenous area may be full dermal necrosis and exposure of the patellar tendon and the patella is likely. Dr. Floyd has spoke to Dr. Rosa Carrera who is a plastic surgeon at [facility]. She has agreed to see the patient in her office on Friday, November 17, 2023 at 2:45 PM. The patient's family has been given the appointment date and time with the office address and phone number. The plastic surgeon did not feel that the patient needed to be transferred immediately and that she could wait until Friday once all of the reperfusion lyndsey ma has occurred and then she will evaluate the patient at that time to determine which debridement and if a skin graft/flap are indicated. The patient and family have verbalized understanding. 14. Further recommendations will be made pending the patient's response to treatment. Thank you for the opportunity to help participate in the care of this patient. All recommendations and orders are per Dr. Lowery.
[2023-11-12] MEDS: ACETAMINOPHEN 325MG TAB 650 MG PO (11:12)
--- NOTE | 2023-11-12 11:17 | PC.NURSE ---
Patient refused Bisacodyl. She and her son Jose states she had a BM yesterday on 11-11-23
[2023-11-12 11:41] VITALS: BP 104/53; PULSE 82; RESP 16; TEMP 36.4; O2SAT 99
[2023-11-12 12:00] VITALS: PULSE 70
--- NOTE | 2023-11-12 12:14 | P.DS_ITS ---
General Admission date:: 11/05/23 Discharge date: 11/12/23 HPI HPI HPI: This patient is an 83-year-old female with history of atrial fibrillation on digoxin, hypertrophic cardiomyopathy, CAD, carotid stenosis, hypertension, hyperlipidemia, GERD, aortic insufficiency, and COPD presenting with concern for months of confusion that typically happens at night. Patient reports that at night, she will do things that she does not remember. She will wake up and call people, including calling 911 thinking that she had someone in her house the other night. She also notes that she got up last night and apparently had taken her medications for today all at 12:30 AM last night. She does not remember doing that, but her family member told her that she did. She notes that all day today, she has been off. She believes this is related to taking too many of her medications. She denies any other concerns, such as fevers, chills, chest pain, shortness of breath, abdominal pain, nausea, vomiting, change in bowel movements, rashes, or swelling. She denies any headaches or neurologic symptoms, but she does note that she has had chronic visual changes related to cataract surgery. On exam, the patient is resting comfortably with no specific concerns or complaints at this time. She is hemodynamically stable, though is mildly bradycardic. No chest pain or shortness of breath. Workup included broad evaluation including metabolic, tox, cardiac, infectious workup as well as CT scan of the head without contrast and chest x-ray. I independently interpreted CT scan and x-ray prior to the radiologist read and noted intracranial hemorrhage and no focal consolidation concerning for pneumonia. Please see their read for final interpretation. Labs were obtained that demonstrated mild hyperkalemia with potassium of 5.4 as well as concerns for urinary tract infection. Ultimately, EKG was not performed in the emergency department until 2057. Once this was handed to me, and noted significant derangements which are new from her prior EKG. She is on digoxin and thinks that she may have taken too much, so this could be related to that, however cannot exclude cardiac ischemia. Troponin came back at 0.25 as well, which is concerning. I immediately had a discussion with Dr. Glasgow with cardiology. He advised that he would like to speak with the patient and family regarding this. He advised that it could be related to digoxin, but cannot exclude ischemia. He spoke with the family and after discussion with both myself and cardiology, family is agreeable with cardiac catheterization. Given this, cardiac [facility] was activated. Patient was loaded with heparin and given oral aspirin per Dr. Glasgow. She is already on Plavix. Ultimately, patient was taken to the [facility] for catheterization in stable condition. I did have an interactive discussion with Dr. Callahan for Dr. Puente who advised that he would be happy to admit the patient. She was started on IV Rocephin for UTI as an admit order, however I feel that catheterization outweighs urgency of UTI treatment at this time. Digoxin level pending at time of transportation to [facility]. (above as per ER physician) Patient's daughter states she lives by herself and normally does well, but she has been more confused over the past week and a half and it is getting worse. She was seen in the office by Dr. Callahan yesterday and was started on oral abx for a UTI. He also felt she had PAD and he got a CT angiogram scheduled in [facility] next week. Her daugther states they decided to bring her to the ER because her mental status was worsening. Hospital Course Hospital Course Hospital Course: The patient's chest x-ray showed nothing acute. Her head CT was normal. Her cardiac cath showed moderate obstructive disease and no indication of occluded vessels causing ST changes. It was felt she had PAD and cardiology was planning to get ABIs as they did not want to expose patient to more contrast right after heart cath. They also ordered an echo. She was started on Rocephin for her UTI and a Domingo catheter was placed due to urinary retention. Her abnormal EKG was likely due to digoxin toxicity. Cardiology gave the patient DigiFab for reversal. They increased her home dose of metoprolol and continued her on dilti azem. Her ABIs revealed moderate disease to the right leg and severe disease of the left leg. They wanted her to remain in the hospital and undergo angiogram with runoff in the [facility] for further evaluation and intervention for her PAD. The patient's potassium normalized and her digoxin level decreased significantly. Her mental status improved. Cardiology wanted a CTA to evaluate her PAD noninvasively first to see the best approach/access to take with the patient. Following her CTA they planned to proceed with bilateral iliofemoral runoff of the lower extremities. 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 Cardiology planned to proceed with a left lower extremity runoff with right groin access. She was taken to the [facility] on 11/11/2023 and had 4 stents placed, 3 in the left common and left external iliac arteries and 1 in the right renal artery. Her heart rate improved and she remained off of the metoprolol and Cardizem. By 11/12/2023 she was tired but had less leg pain. She was able to eat. She had had difficulty with constipation and was given MiraLAX. She was reevaluated by physical therapy and the therapist felt her wounds should be painted with Betadine and we should await changes now that reperfusion had been performed. He felt debridement would be risky but she may need this at a later date. Dr. Puente felt she was stable for discharge. The x-ray of her patella showed no evidence of osteomyelitis. Cardiology had suggested possible plastic surgery consult and Dr. Puente planned to see the patient in the office and do some debriding on the edges of the eschar. With improved circulation it was likely to granulate in from the edges and he felt this was more preferable than transferring the patient for further hospitalization and surgery. The family agreed. Dr. Floyd did get the patient an appointment with Dr. Monica Carrera who is a plastic surgeon at [facility] on November 16 at 2:45 PM. The patient is stable to be discharged to [facility] for rehabilitation. Exam Data for Last 24 hours Vital signs and Labs for Last 24 Hours: Temp Pulse Resp BP Pulse Ox O2 Del Method O2 Flow Rate 97.5 F L 82 16 104/53 L 99 Room Air 1 11/12/23 11:41 11/12/23 11:41 11/12/23 11:41 11/12/23 11:41 11/12/23 11:41 11/12/23 11:41 11/10/23 16:56 Laboratory Results - last 24 hr 11/11/23 09:51: Activated Clotting Time > 400 H* I & O for Last 24 hours: Intake & Output 11/10/23 11/11/23 11/12/23 11/13/23 11:59 11:59 11:59 11:59 Intake Total 540 / 540 585 / 585 1330 / 1330 Output Total 800 / 1800 1000 / 1000 Balance -260 / -1260 -415 / -415 1329 / 1329 Weight 84 lb 6.993 oz 90 lb 3.2 oz 90 lb 3.199 oz Microbiology Reports for the Last 24 Hours: Microbiology 11/05/23 19:56 Urine,Clean Catch Urine Culture - Final Results Data Completed and Pending Labs on day of discharge: Labs from last 24 hours 11/11/23 09:51 Activated Clotting Time > 400 H* DS: Diagnosis Discharge Diagnosis (1) Peripheral arterial disease: Status: Acute Code(s): I73.9 - Peripheral vascular disease, unspecified (2) Renal artery stenosis: Status: Acute Code(s): I70.1 - Atherosclerosis of renal artery (3) Accidental digoxin overdose: Status: Acute Code(s): T46.0X1A - Poisoning by cardiac-stimulant glycosides and drugs of similar action, accidental (unintentional), initial encounter (4) Acute UTI: Status: Acute Code(s): N39.0 - Urinary tract infection, site not specified (5) Urinary retention: Status: Acute Code(s): R33.9 - Retention of urine, unspecified (6) Leg wound, left: Status: Acute Code(s): S81.802A - Unspecified open wound, left lower leg, initial encounter (7) Abnormal EKG: Status: Acute Code(s): R94.31 - Abnormal electrocardiogram [ECG] [EKG] (8) Altered mental status: Status: Acute Code(s): R41.82 - Altered mental status, unspecified (9) Smoking greater than 30 pack years: Status: Acute Code(s): F17.210 - Nicotine dependence, cigarettes, uncomplicated (10) COPD mixed type: Status: Acute Code(s): J44.9 - Chronic obstructive pulmonary disease, unspecified (11) Presence of Watchman left atrial appendage closure device: Status: Chronic Code(s): Z95.818 - Presence of other cardiac implants and grafts (12) CAD (coronary artery disease): Status: Chronic Code(s): I25.10 - Atherosclerotic heart disease of [place] coronary artery without angina pectoris Qualifiers: Coronary Disease-Associated Artery/Lesion type: [place] artery [place] vs. transplanted heart: [place] heart Associated angina: without angina Qualified Code(s): I25.10 - Atherosclerotic heart disease of [place] coronary artery without angina pectoris (13) HOCM (hypertrophic obstructive cardiomyopathy): Status: Chronic Code(s): I42.1 - Obstructive hypertrophic cardiomyopathy (14) Pulmonary HTN: Status: Chronic Code(s): I27.20 - Pulmonary hypertension, unspecified (15) Hypertension: Status: Chronic Code(s): I10 - Essential (primary) hypertension Qualifiers: Hypertension type: essential hypertension Qualified Code(s): I10 - Essential (primary) hypertension (16) Hyperlipidemia: Status: Chronic Code(s): E78.5 - Hyperlipidemia, unspecified Qualifiers: Hyperlipidemia type: mixed hyperlipidemia Qualified Code(s): E78.2 - Mixed hyperlipidemia (17) Gastroesophageal reflux disease: Status: Chronic Code(s): K21.9 - Gastro-esophageal reflux disease without esophagitis Qualifiers: Esophagitis presence: esophagitis presence not specified Qualified Code(s): K21.9 - Gastro-esophageal reflux disease without esophagitis (18) Status post carotid endarterectomy: Status: Chronic Code(s): Z98.890 - Other specified postprocedural states (19) Anxiety disorder: Status: Chronic Code(s): F41.9 - Anxiety disorder, unspecified (20) Bradycardia: Status: Acute Code(s): R00.1 - Bradycardia, unspecified (21) Tobacco abuse: Status: Chronic Code(s): Z72.0 - Tobacco use Meds Home Medications and Allergies Home Medications Medication Instructions Recorded Confirmed Type gabapentin 100 mg capsule 100 mg PO HS 04/21/19 11/05/23 History atorvastatin 10 mg tablet 10 mg PO Q48H 05/05/19 11/05/23 History aspirin 81 mg tablet,delayed 81 mg PO DAILY 07/26/19 11/05/23 History release acetaminophen 650 mg 650 mg PO BID 11/13/20 11/05/23 History tablet,extended release buspirone 10 mg tablet 10 mg PO TID 11/13/20 11/05/23 History furosemide 20 mg tablet 20 mg PO DAILY 09/11/21 11/05/23 History diltiazem HCl 180 mg 180 mg PO DAILY 03/09/22 11/05/23 History capsule,extended release 24 hr, controlled potassium chloride 10 mEq 10 meq PO BID 02/26/23 11/06/23 History capsule,extended release clopidogrel 75 mg tablet 75 mg PO DAILY 07/17/23 11/05/23 History dicyclomine 20 mg tablet 10 mg PO QIDP PRN Stomach cramps 07/17/23 11/05/23 History fluticasone propionate 50 50 mcg intranasal BIDP PRN 07/17/23 11/05/23 History mcg/actuation nasal Allergic Symptoms spray,suspension (Flonase Allergy Relief) metoprolol succinate 50 mg 50 mg PO DAILY 07/17/23 11/05/23 History tablet,extended release 24 hr ipratropium 0.5 mg-albuterol 3 mg 3 ml inhalation QID PRN shortness 08/25/23 11/06/23 Rx (2.5 mg base)/3 mL nebulization of breath or wheezing 90 days #90 soln mL pantoprazole 40 mg tablet,delayed 40 mg PO DAILYP PRN Acid Reflux 11/06/23 11/05/23 History release spironolactone 25 mg tablet 25 mg PO DAILY 11/06/23 11/06/23 History tiotropium bromide 2.5 2 puff inhalation DAILY 11/06/23 11/06/23 History mcg/actuation mist for inhalation (Spiriva Respimat) New Prescriptions to Start Prescriptions: Allergies Allergy/AdvReac Type Severity Reaction Status Date / Time beef derived (bovine) Allergy Unknown Verified 10/02/23 13:38 allergy reaction lactose Allergy Unknown Verified 10/02/23 13:38 allergy reaction Penicillins Allergy Unknown Verified 10/02/23 13:38 allergy reaction Sulfa (Sulfonamide Allergy Verified 10/02/23 13:38 Antibiotics) Discharge Plan Disposition Patient Disposition: [facility] Discharge Order Discharge Orders: Discharge Order (Routine); Ordered 11/12/23 Ordered By: Nazanin Puente Follow up Plan Follow up with: Nazanin Puente MD [Staff Physician] - 11/20/23 2:30 pm (with Kelsea) Sarbjit Floyd MD [Staff Physician] - 11/20/23 1:15 pm Prescriptions/Medication Reconciliation: Continued potassium chloride 10 mEq capsule, extended release 10 meq PO BID ipratropium-albuterol 0.5 mg-3 mg(2.5 mg base)/3 mL solution for nebulization 3 ml inhalation QID PRN (Reason: shortness of breath or wheezing) 90 Days Qty: 90 2RF furosemide 20 mg tablet 20 mg PO DAILY gabapentin 100 MG capsule 100 mg PO HS atorvastatin 10 mg tablet 10 mg PO Q48H metoprolol succinate 50 mg tablet extended release 24 hr 50 mg PO DAILY clopidogrel 75 mg tablet 75 mg PO DAILY Patient Comments: TAKE 1 TABLET BY MOUTH ONCE DAILY FOR BLOOD THINNER dicyclomine 20 mg tablet 10 mg PO QIDP PRN (Reason: Stomach cramps) Patient Comments: TAKE 1 TABLET BY MOUTH 4 TIMES DAILY NEEDED fluticasone propionate [Flonase Allergy Relief] 50 mcg/actuation Foster,Suspension 50 mcg INTRANASAL BIDP PRN (Reason: Allergic Symptoms) Spiriva Respimat 2.5 mcg/actuation mist 2 puff inhalation DAILY Patient Comments: INHALE 2 SPRAY(S) BY MOUTH ONCE DAILY spironolactone 25 mg tablet 25 mg PO DAILY pantoprazole 40 mg tablet,delayed release (DR/EC) 40 mg PO DAILYP PRN (Reason: Acid Reflux) aspirin 81 MG tablet,delayed release (DR/EC) 81 mg PO DAILY acetaminophen 650 MG tablet extended release 650 mg PO BID buspirone 10 MG tablet 10 mg PO TID diltiazem HCl 180 MG capsule,ext.rel 24h degradable 180 mg PO DAILY Patient Comments: TAKE 1 CAPSULE BY MOUTH ONCE DAILY Discontinued digoxin 250 mcg (0.25 mg) tablet 250 mcg PO DAILY Qty: 30 2RF Problem Reconciliation Problems Reviewed?: Yes Patient Discharge Instructions ACTIVITY: Up with assistance Patient Instructions: DI for Heart Attack, DI for Cardiac Catheterization, DI for Urinary Tract Infection (UTI), DI for Surgical Site Infection, DI for Urinary Retention in Women, Catheter-Associated Urinary Tract Infection Providers Primary Care Provider: Julio C Puente Admit Provider: Frank Callahan Attending Provider: Nazanin Puente
--- NOTE | 2023-11-12 13:05 | PC.NURSE ---
Report called to Bo at [facility].
== END 2023-11-12 13:35 | DRG 908 ==
LOC: ER 21:37 → CATHLAB 21:59 → 2ND 11-06 05:48
PROVIDERS: Internal Medicine; Nurse Practitioner; Nurse Practitioner Family; Physician Assistant; Admitting Provider Family Medicine; Emergency Provider Emergency Medicine; PCP Psychiatry & Neurology Sleep Medicine; Visit Provider Family Medicine
PROC: 047J3DZ Dilation of Left External Iliac Artery with Intraluminal Device, Percutaneous Approach (ICD-10-PCS; principal; 2023-11-11 10:30)
DX: T46.0X1A Poisoning by cardiac-stimulant glycosides and drugs of similar action, accidental (unintentional), initial encounter (principal); I42.1 Obstructive hypertrophic cardiomyopathy; N39.0 Urinary tract infection, site not specified; I70.262 Atherosclerosis of native arteries of extremities with gangrene, left leg; I50.32 Chronic diastolic (congestive) heart failure; I96 Gangrene, not elsewhere classified; R33.9 Retention of urine, unspecified; R94.31 Abnormal electrocardiogram [ECG] [EKG]; F17.210 Nicotine dependence, cigarettes, uncomplicated; J44.9 Chronic obstructive pulmonary disease, unspecified; I25.119 Atherosclerotic heart disease of native coronary artery with unspecified angina pectoris; Z95.818 Presence of other cardiac implants and grafts; Z79.01 Long term (current) use of anticoagulants; I77.1 Stricture of artery; I48.0 Paroxysmal atrial fibrillation; I25.2 Old myocardial infarction; Z86.73 Personal history of transient ischemic attack (TIA), and cerebral infarction without residual deficits; I70.201 Unspecified atherosclerosis of native arteries of extremities, right leg; I27.20 Pulmonary hypertension, unspecified; K21.9 Gastro-esophageal reflux disease without esophagitis; F41.9 Anxiety disorder, unspecified; I08.2 Rheumatic disorders of both aortic and tricuspid valves; I65.29 Occlusion and stenosis of unspecified carotid artery; I70.1 Atherosclerosis of renal artery; I10 Essential (primary) hypertension; E78.5 Hyperlipidemia, unspecified; K59.00 Constipation, unspecified
CPT/HCPCS: 36251; 36415; 37221; 37236; 70450; 71045; 73560; 75635; 80048; 80053; 80162; 80307; 81001; 82140; 82803; 83605; 84132; 84436; 84443; 84484; 85025; 85347; 85610; 85730; 87086; 87636; 93005; 93306; 93458; 93923; 97116; 97163; 97166; 97530; 99152; 99153; 99291; C1725; C1769; C1876; C1887; C1894; J0696; J1162; J1644; J2405; J2720; Q9966; Q9967

== ENCOUNTER 2023-12-07 19:16 | Inpatient (IN) | payer MEDICARE, SELFPAY ==
[2023-12-07] VITALS (13 sets, daily range): BP systolic 81–109; BP diastolic 36–60; PULSE 41–72; RESP 18–37; TEMP 35.5–36.5; O2SAT 88–100; BMI 14.6; BMI 18.8
--- NOTE | 2023-12-07 19:34 | XR_ITS ---
PROCEDURE INFORMATION: Exam: XR Chest Exam date and time: 12/07/2023 7:36 PM Age: 83 years old Clinical indication: Shortness of breath TECHNIQUE: Imaging protocol: Radiologic exam of the chest. Views: 1 view. COMPARISON: CR XR CHEST PORTABLE 11/05/2023 7:58 PM FINDINGS: Tubes, catheters and devices: Left atrial appendage exclusion device is noted. Lungs: Lungs are hyperinflated. Clear parenchyma. Pleural spaces: No pleural effusion. No pneumothorax. Heart/Mediastinum: Stable moderate cardiomegaly. Vasculature: Calcified aorta without dilation. Vascular stent noted in the right upper chest. Bones/joints: Age appropriate. IMPRESSION: Hyperinflated but clear lungs. No other acute cardiopulmonary abnormality.
--- NOTE | 2023-12-07 19:34 | ECG_ITS ---
APPROVED REPORT Exam: Resting ECG HR:45 bpm ECG Measurements Heart Rate 45 AXES QRSd 78 QRS 30 QT 460 T 20 QTc 413 Conclusion ATRIAL FIBRILLATION WITH SLOW VENTRICULAR RESPONSE ABNORMAL RHYTHM ECG Electronically signed by : CHRISTEN LANG, 12/07/2023 20:13:13
[2023-12-07 19:48] LABS: Basophils % 0.2 % (0.1-2.0); Chloride 108 mmol/L (98-107); Eosinophils # 0.1 K/mm3 (0.0-0.4); Eosinophils % 0.5 % (0.1-12.0); Hematocrit 26.7 % (37.0-47.0); Hemoglobin 7.7 g/dL (12.2-16.2); Mean Corpuscular HGB Conc 28.9 g/dL (31.8-35.4); Mean Corpuscular Hemoglobin 24.1 pg (27.0-31.2); Mean Corpuscular Volume 83.5 fl (81-99); Mean Platelet Volume 8.1 fl (7.4-10.4); Monocytes # 0.9 K/mm3 (0.1-1.0); Monocytes % 7.3 % (1.7-9.3); Neutrophils # 9.4 K/mm3 (1.8-7.8); Platelet Count 349 K/mm3 (142-424); Potassium 5.4 mmoL/L (3.5-5.1); Red Blood Count 3.19 M/mm3 (4.20-5.40); Red Cell Distribution Width 18.5 % (11.5-17.5); Sodium 138 mmol/L (136-145); White Blood Count 12.4 K/mm3 (4.8-10.8)
[2023-12-07 19:49] LABS: VBG Base Excess -6.3 mmol/L (-2.4-2.3); VBG HCO3 19.4 mmol/L (23-30); VBG Oxygen Saturation 63.5 % (50-70); VBG PCO2 36.3 mmol/L (35-51); VBG PH 7.35 mmol/L (7.31-7.41); VBG Total CO2 20.5 mmol/L (23-27)
[2023-12-07] MEDS: 0.9 % SODIUM CHLORIDE 1000ML 1,000 ML 999 ML IV (19:49)
[2023-12-07 19:50] LABS: Activated Partial Thrombo Time 23.3 seconds (22.8-30.6); INR 1.03 (0.9-1.1); Prothrombin Time 11.1 seconds (10.1-12.5)
--- NOTE | 2023-12-07 19:50 | ED_ITS ---
Discharge Plan Disposition Patient Disposition: Admitted Condition: Critical Chief Complaint: Weakness Clinical Impressions Clinical Impression: Septic shock, Acute anemia Discharge ED Provider: Pura Mejia Adult HPI General Chief complaint: Weakness Stated complaint: soa Time Seen by Provider: 12/07/23 19:20 Mode of Arrival: Wheelchair Source of Information: Patient and Relative Limitations: Physical Limitations Description of Symptoms (Recalled from ER Triage Doc. by RN): 83 F presents from home with family who report increased weakness/lethargy and increased chronic pain issues. Patient was admitted in November at [facility]. She stayed 1 week here and then admitted to [facility] for rehab. She has been home since Friday of this previous week. Patient wears 1.5-2 L/NC and has arrived on 2L. History of Present Illness HPI narrative: Patient is an 83-year-old female with past medical history peripheral arterial disease status post stenting in the left lower extremity earlier this month, COPD on 2 L nasal cannula baseline, history of A-fib on Plavix and with Watchman device in place, aortic insufficiency, CAD, hypertension, hyperlipidemia presenting with shortness of breath and weakness. Patient was discharged on 430 from [facility] where she was admitted for rehab after 1 week stay postprocedural, has been home since Friday and has noted to family that she feels very weak and was complaining of shortness of breath prompting their presentation. They do note that she has been compliant with her medications but notes she has seemed intermittently confused though this has been her baseline since she was admitted to the hospital. They do note a chronic ulcer however her left knee that is being cared for at home. They deny any known fevers and patient denies any chest pain or abdominal pain. Related Data Home Medications Medication Instructions Recorded Confirmed gabapentin 100 mg capsule 100 mg PO HS 04/21/19 12/07/23 atorvastatin 10 mg tablet 10 mg PO Q48H 05/05/19 12/07/23 aspirin 81 mg tablet,delayed 81 mg PO DAILY 07/26/19 12/07/23 release acetaminophen 650 mg 650 mg PO BID 11/13/20 12/07/23 tablet,extended release buspirone 10 mg tablet 10 mg PO TID 11/13/20 12/07/23 furosemide 20 mg tablet 20 mg PO DAILY 09/11/21 12/07/23 diltiazem HCl 180 mg 180 mg PO DAILY 03/09/22 12/07/23 capsule,extended release 24 hr, controlled potassium chloride 10 mEq 10 meq PO BID 02/26/23 12/07/23 capsule,extended release clopidogrel 75 mg tablet 75 mg PO DAILY 07/17/23 12/07/23 dicyclomine 20 mg tablet 10 mg PO QIDP PRN Stomach cramps 07/17/23 12/07/23 fluticasone propionate 50 50 mcg intranasal BIDP PRN 07/17/23 12/07/23 mcg/actuation nasal Allergic Symptoms spray,suspension (Flonase Allergy Relief) pantoprazole 40 mg tablet,delayed 40 mg PO DAILYP PRN Acid Reflux 11/06/23 12/07/23 release spironolactone 25 mg tablet 25 mg PO DAILY 11/06/23 12/07/23 tiotropium bromide 2.5 2 puff inhalation DAILY 11/06/23 12/07/23 mcg/actuation mist for inhalation (Spiriva Respimat) Previous Rx's Medication Instructions Recorded ipratropium 0.5 mg-albuterol 3 mg 3 ml inhalation QID PRN shortness 08/25/23 (2.5 mg base)/3 mL nebulization of breath or wheezing 90 days #90 soln mL metoprolol succinate 100 mg 100 mg PO DAILY #90 tabs 11/24/23 tablet,extended release 24 hr Allergies Allergy/AdvReac Type Severity Reaction Status Date / Time beef derived (bovine) Allergy Unknown Verified 10/02/23 13:38 allergy reaction lactose Allergy Unknown Verified 10/02/23 13:38 allergy reaction Penicillins Allergy Unknown Verified 10/02/23 13:38 allergy reaction Sulfa (Sulfonamide Allergy Verified 10/02/23 13:38 Antibiotics) [facility] Disclaimer: The information contained in this section may have been updated after the patient was seen, as this information can be updated by other users. Medical History Abnormal EKG Urinary retention Acute UTI Periorbital ecchymosis of left eye Atrial fibrillation Renal artery stenosis Abnormal ankle brachial index (ZORA) Peripheral arterial disease Smoking greater than 30 pack years COPD mixed type Pleural effusion Syncope Hypokalemia COPD exacerbation Fall at home Pulmonary edema Adverse effect of antiplatelet agent Acute lower gastrointestinal bleeding Ischemic bowel disease Diarrhea Epigastric pain Chest pain Gastroesophageal reflux disease Presence of Watchman left atrial appendage closure device Angina, class II Aortic insufficiency Elevated troponin TIA (transient ischemic attack) Rapid atrial fibrillation Atrial fibrillation with RVR Anxiety Dyspnea Bilateral carotid artery stenosis Stress reaction Palpitations Blood loss anemia Abdominal pain Apical variant hypertrophic cardiomyopathy Burning with urination Constipation skilled nursing current use of anticoagulant Paroxysmal atrial fibrillation CAD (coronary artery disease) New onset a-fib Carotid artery stenosis Pulmonary HTN Diastolic dysfunction Subclavian artery stenosis, right Hyperlipidemia Hypertension NSTEMI (non-ST elevated myocardial infarction) Anxiety disorder Tobacco abuse Arteriosclerotic cardiovascular disease Surgical History History of colonoscopy History of right heart catheterization (RHC) History of appendectomy History of cholecystectomy History of hysterectomy Status post carotid endarterectomy Family History Other Cancer Coronary artery disease Diabetes Family history of diabetes mellitus type II Family history of myocardial infarction Hypertension Stroke Social History Smoking Status: Former smoker tobacco type: cigarettes packs per day: 1 alcohol intake: never substance use type: denies use current occupational status: retired Travel in the last 8 weeks: None household members: none housing: house lives independently: Yes marital status: single education level: middle school service: No caffeine: No special fanny needs: No agree to transfusion: No do you feel safe at home: Yes victim of physical abuse: No victim of emotional abuse: No victim of sexual abuse: No would you like helpful sources: No ROS Obtained: Yes All systems reviewed & no additional complaints except as documented Physical Exam General General appearance: alert, in no apparent distress and other (Chronically ill- appearing, answers all questions appropriately) Head Head exam: atraumatic and normocephalic Eye Eye exam: Present PERRL and EOMI ENT ENT exam: Present mucous membranes dry Neck Neck exam: Present normal inspection Chest Chest inspection: Present normal inspection and symmetric chest wall rise Respiratory Respiratory exam: Present other (Decreased lung sounds bilaterally though no wheezing, rhonchi or accessory muscle use); Absent respiratory distress Cardiovascular Cardiovascular exam: Present bradycardia and irregular rhythm Abdominal Exam Abdominal exam: Present soft; Absent distention, tenderness, guarding or rebound Extremities Exam Extremities exam: Present normal inspection Neurological Exam Neurological exam: Present alert and oriented X3 (States she is in the hospital and why as well as that it is 2023.) Skin Skin exam: Present dry (Cool, decreased capillary refill to the distal extremities to 3 seconds) and other (Chronic ulcer over left knee without surrounding erythema or drainage) Medical Decision Making Medical Records Medical records reviewed: Yes I reviewed the patient's medical records. Jorge Inquiry Pt receiving controlled substance: No Vital Signs: 12/07/23 19:17 12/07/23 20:14 12/07/23 20:18 Temperature 97.2 F L 96 F L 97.3 F L Temperature Source Axillary Core Pulse Rate 42 L 60 Pulse Rate [Left] 43 L Respiratory Rate 18 28 H 34 H Blood Pressure 99/51 L 100/45 L Blood Pressure [Right Arm] 103/47 L Blood Pressure Mean 70 64 Blood Pressure Mean [Right Arm] 65 Blood Pressure Source [Right Arm] Automatic Cuff Blood Pressure Position [Right Arm] Sitting 02 Sat by Pulse Oximetry 98 96 Oxygen Delivery Method Nasal Cannula Oxygen Flow Rate (LPM) 5 2 12/07/23 20:30 Temperature 97.3 F L Temperature Source Pulse Rate 55 L Pulse Rate [Left] Respiratory Rate 21 Blood Pressure 108/50 L Blood Pressure [Right Arm] Blood Pressure Mean 62 Blood Pressure Mean [Right Arm] Blood Pressure Source [Right Arm] Blood Pressure Position [Right Arm] 02 Sat by Pulse Oximetry 98 Oxygen Delivery Method Oxygen Flow Rate (LPM) 2 Lab Data Lab results reviewed: Yes I reviewed the patient's lab results. Lab Results 12/07/23 19:25: WBC 12.4 H, RBC 3.19 L, Hgb 7.7 L, Hct 26.7 L, MCV 83.5, MCH 24.1 L, MCHC 28.9 L, RDW 18.5 H, Plt Count 349, MPV 8.1, Neut % (Auto) 76.0, Lymph % (Auto) 16.0, [place] % (Auto) 7.3, Eos % (Auto) 0.5, Baso % (Auto) 0.2, N eut # (Auto) 9.4 H, Lymph # (Auto) 2.0, [place] # (Auto) 0.9, Eos # (Auto) 0.1, Baso # (Auto) 0.0, PT 11.1, INR 1.03, APTT 23.3, Sodium 138, Potassium 5.4 H, C hloride 108 H, Carbon Dioxide 23, Anion Gap 12.4, BUN 25 H, Creatinine 1.10 H, Estimated Creat Clear 24, Estimated GFR 48 L, Est GFR ( Amer) 58 L, G lucose 131 H, Lactate 3.9 H, Calcium 9.1, Total Bilirubin 0.6, AST 35, ALT 28, A lkaline Phosphatase 133 H, Troponin I 0.11 H, NT-Pro-B Natriuret Pep 5130 H, T otal Protein 6.0 L, Albumin 3.4 L, Globulin 2.6, Albumin/Globulin Ratio 1.3, Procalcitonin 0.090 12/07/23 19:34: VBG pH 7.35, VBG pCO2 36.3, VBG pO2 36.0, VBG HCO3 19.4 L, VBG Total CO2 20.5 L, VBG O2 Saturation 63.5, VBG Base Excess -6.3 L, VBG Lactic Acid 4.6 H 12/07/23 20:10: Urine Color Yellow, Urine Appearance Clear, Urine pH 5.5, Ur Specific [place] 1.015, Urine Protein Negative, Urine Glucose (UA) Negative, Urine Ketones Negative, Urine Blood Negative, Urine Nitrate Negative, Urine Bilirubin Negative, Urine Urobilinogen 0.2, Ur Leukocyte Esterase Negative, Urine RBC None, Urine WBC None, Ur Squamous Epith Cells Occasional, Urine Bacteria Trace 12/07/23 19:25 12/07/23 19:25 Orders (Tests/Meds): ED MEDICATIONS Generic Name Dose Route Start Last Admin Trade Name Ruiz PRN Reason Stop Dose Admin Vancomycin HCl 500 mg/ Sodium 250 mls @ 125 mls/hr 12/07/23 20:15 Chloride IV 12/17/23 20:14 Q12H OLIVIA Norepinephrine/Dextrose 8 mg in 250 mls @ 3.75 mls/hr 12/07/23 20:37 Norepinephrine 8mg/250ml-D5w Premix IV 01/06/24 20:36 .Q24H OLIVIA Protocol 2 MCG/MIN Sodium Chloride 250 mls @ 25 mls/hr 12/07/23 20:45 Sod Chlor 0.9% 250ml Bag IV 12/08/23 20:44 .Q10H OLIVIA Sodium Chloride 10 ml 12/07/23 19:34 Sodium Chloride 0.9% 10ml Flush Syringe IV 01/06/24 19:33 NEEDED PRN Maintain IV Site Discontinued Medications Generic Name Dose Route Start Last Admin Trade Name Ruiz PRN Reason Stop Dose Admin Sodium Chloride 1,000 mls @ 999 mls/hr 12/07/23 19:36 12/07/23 19:49 Sod Chlor 0.9% 1000ml Bag IV 12/07/23 20:36 999 mls/hr .Q1H1M ONE Administration Lactated Ringer's 1,000 mls @ 999 mls/hr 12/07/23 19:51 12/07/23 20:23 Lactated Ringer's 1000 Ml Bag IV 12/07/23 20:51 999 mls/hr .Q1H1M ONE Administration Cefepime HCl 1 gm/ Sodium 50 mls @ 100 mls/hr 12/07/23 20:08 12/07/23 20:33 Chloride IV 12/07/23 20:09 100 mls/hr ONCE ONE Administration ORDERS Category Date Time Status Type and Screen Stat BBK 12/07/23 20:[address] abdomen pelvis w con Stat Cat Scan 12/07/23 19:54 Ordered CTA Chest [CT angio chest PE protocol] Stat Cat Scan 12/07/23 19:54 Ordered XR chest portable Stat Exams 12/07/23 19:34 Taken Activated Partial Thrombo Time Stat Lab 12/07/23 19:25 Completed Complete Blood Count Auto Diff Stat Lab 12/07/23 19:25 Completed Comprehensive Metabolic Panel Stat Lab 12/07/23 19:25 Completed Lactic Acid Stat Lab 12/07/23 19:25 Completed NT Pro Brain Natriuretic Pep. Stat Lab 12/07/23 19:25 Completed Procalcitonin Stat Lab 12/07/23 19:25 Completed Prothrombin Time INR Stat Lab 12/07/23 19:25 Completed Troponin I Q3H Lab 12/07/23 22:45 Ordered Troponin I Q3H Lab 12/08/23 01:45 Ordered Troponin I Stat Lab 12/07/23 19:25 Completed Urinalysis and Microscopic Stat Lab 12/07/23 20:10 Completed Blood Culture Stat Micro 12/07/23 20:44 Ordered Venous Blood Gas Stat RT 12/07/23 19:34 Completed HEART Score History (anamnesis): Slightly suspicious ECG: Non-specific disturbance Age: >65 years Risk factors: Atherosclerosis history Troponin: 1-3x normal limit HEART Score: 6 Medical Decision Narrative: Patient is an 83-year-old female with past medical history COPD on baseline 2 L nasal cannula, hypertension, hyperlipidemia, CAD, A-fib status post Watchman procedure, arterial disease status post stenting earlier in November for which she was admitted for 1 week followed by rehab placement for which she was discharged December 01 presenting with shortness of breath and increased weakness. She is with rate controlled A-fib on exam but hypothermic to 95, appears weak and borderline hypotensive though she is alert and responsive, answers all questions appropriately. She appears in no acute distress but chronically ill-appearing, lung sounds decreased bilaterally and we did have to increase from her baseline oxygen requirement. Will obtain broad workup and concern for sepsis, will fluid resuscitate with warmed fluids considering hypothermia and obtain CT scans as well and will start on broad-spectrum antibiotics. EKG showing rate controlled A-fib without acute ischemia or infarction, CBC with anemia to 7.7, hematocrit of 26, white blood cell count is slightly elevated to 12.4. VBG without significant derangement with pH of 7.34 and pCO2 36 but notably with an elevated lactate to 4.6, CMP showing creatinine of 1.1 not significantly deranged though slightly hyperkalemic to 5.4. Procalcitonin negative, BNP is elevated to 5130, troponin slightly elevated to 0.11 likely consistent with age involving multisystem organ failure especially considering VBG without significant derangement. She despite fluids was borderline hypotensive still. I was concern for septic shock considering hypothermia, hypotension, hypoxia, patient not able to tolerate CT scan at present and Levophed is at bedside but not yet started. I did speak with family at bedside regarding patient's critical status and patient does remain alert and oriented, I had a discussion with her at bedside that she is critically ill and concerned about her status, she stated that she would not want compressions, would not want a breathing tube if needed but stated specifically she would not want compressions and CHARLINE garnett who is her son and daughter at bedside were present for this discussion. Patient did sign form at bedside. We did also broach the discussion of comfort measures which patient would like to think about but does not agree to at this time. I did speak with Dr. Puente who is patient's primary care provider regarding patient's critical status and admission and concern for septic shock potentially and did express that we are unable to obtain CT at the moment but did start empirically on vancomycin and cefepime. He is agreeable with admission and recommends that we could admit to stepdown and start Levophed care if needed but we did speak with malt house supervisor who states we would not be able to do this and admitted to ICU. Family at bedside aware. Critical Care Critical Care Time Critical Care Time: Yes Attestation: On 12/07/23, the high probability of a clinically significant, sudden or life threatening deterioration of the following system(s) required my full and direct attention, intervention and personal management. The time I documented below is in addition to time spent performing reported procedures but includes the following listed in this critical care notation. Total Time Total Critical Care Time: 45
[2023-12-07 19:51] LABS: Lactate Venous 4.6 mmol/L (0.4-2.0)
[2023-12-07 19:51] LABS: Alanine Aminotransferase 28 U/L (12-78); Albumin Level 3.4 g/dl (3.5-5.0); Albumin/Globulin Ratio 1.3 (1.1-1.8); Alkaline Phosphatase 133 U/L (38-126); Anion Gap 12.4 mEq/L (5-15); Aspartate Amino Transferase 35 U/L (14-36); Bilirubin,Total 0.6 mg/dl (0.2-1.3); Blood Urea Nitrogen 25 mg/dl (7-17); Carbon Dioxide 23 mmol/L (22.0-30.0); Creatinine Clearance Estimated 24 mL/min (50-200); Estimated Glomerular Filt Rate 48 ml/min (>60); GFR (African American) 58 ML/MIN (>60); Globulin 2.6 g/dL (1.3-3.2)
[2023-12-07 19:52] LABS: Calcium 9.1 mg/dl (8.4-10.2); Glucose 131 mg/dl (74-100); Lactic Acid 3.9 mmol/L (0.7-2.1)
[2023-12-07 20:00] LABS: NT Pro Brain Natriuretic Pep. 5130 pg/mL (0-450)
[2023-12-07 20:07] LABS: Troponin I 0.11 ng/ml (0.00-0.034)
[2023-12-07 20:18] LABS: Microscopic, Urine URINE MICROSCOPIC (MICROSCOPIC)
[2023-12-07 20:20] LABS: Appearance,Urine CLEAR (Clear); Bilirubin,Urine Negative (Negative); Blood, Urine Negative (Negative); Color,Urine YELLOW (Yellow); Glucose,Urine (UA) Negative (Negative); Ketones,Urine Negative (Negative); Leukocyte Esterase,Urine Negative (Negative); Nitrate,Urine Negative (Negative); PH,Urine 5.5 (5.0-8.5); Protein,Urine Negative (Negative); Specific Gravity, Urine 1.015 (1.005-1.030); Urobilinogen,Urine 0.2 EU/dl (0.2)
[2023-12-07] MEDS: LACTATED RINGERS 1000ML 1,000 ML 999 ML IV (20:23)
[2023-12-07 20:30] LABS: Bacteria,Urine Trace /lpf; Squamous Epithelial Cell,Urine Occasional #/hpf (0-5)
[2023-12-07] MEDS: CEFEPIME HCL 1 GM in 0.9 % SODIUM CHLORIDE 50 ML IV (20:33)
--- NOTE | 2023-12-07 20:38 | PC.NURSE ---
contacted [facility] re: admission. spoke with susi hanks. dx: septic shock, icu admit due to levophed administration and status
--- NOTE | 2023-12-07 20:43 | PC.NURSE ---
Dr. Kwame chapa for ED MD
--- NOTE | 2023-12-07 20:54 | PC.NURSE ---
Attempted to call report at this time. No answer from receiving RN.
--- NOTE | 2023-12-07 20:58 | PC.NURSE ---
Attempted report again. No answer. Contacted 2nd floor Charge who will contact receiving RN
--- NOTE | 2023-12-07 21:01 | PC.NURSE ---
2nd flooring helper transferred this RN a 3rd time for report, but no answer. Patient transported to 2nd floor for bedside report
--- NOTE | 2023-12-07 21:09 | PC.NURSE ---
Patient arrived to floor via stretcher from ED at 21:07.
--- NOTE | 2023-12-07 22:11 | EXP.HP ---
History of Present Illness *Admission Date: 12/07/23 *Reason for visit:: weakness, pain AMS *History of present illness: Suri Banks is an 83-year-old female admitted through the ER. [place] [facility] [place] Has been declining since, with weakness, confusion, increased c/o pain. Past medical history COPD on baseline 2 L nasal cannula, hypertension, hyperlipidemia, CAD, A-fib status post Watchman procedure, arterial disease status post stenting earlier in November. She was admitted for 1 week followed by rehab placement at [facility] with discharge December 01. She is with rate controlled A-fib on exam but hypothermic to 95 degrees. She appears weak and hypotensive though she is alert and responsive, answering all questions appropriately. She is chronically ill-appearing, lung sounds are decreased bilaterally. Broad-spectrum antibiotics were initiated in the ER. EKG shows rate controlled A-fib without acute ischemia or infarction. CBC shows anemia to 7.7, hematocrit of 26, white blood cell count is slightly elevated to 12.4. VBG without significant derangement with pH of 7.34 and pCO2 36 but notably with an elevated lactate to 4.6.CMP showing creatinine of 1.1 not significantly deranged though slightly hyperkalemic to 5.4. Procalcitonin negative, BNP is elevated to 5130, troponin slightly elevated to 0.11 likely consistent with age involving multisystem organ failure. Septic shock is a concern. It was judged in the ER that she would not tolerate CT scan at present. Levophed was initiated. Family accompanies the patient and they understand that she is critically ill. In the ER the patient stated that she would not want compressions, would not want a breathing tube. Patient did sign form at bedside. She was started on vancomycin and cefepime. The patient has a full thickness wound of the left knee which has been receiving weekly debridment in [place] by Dr. Puente. This is the leg that was recently stented by Dr. Floyd. Two toes of the left foot were recently debrided in the office as well. [facility] Disclaimer: The information contained in this section may have been updated after the patient was seen, as this information can be updated by other users. Medical History Abnormal EKG Urinary retention Acute UTI Periorbital ecchymosis of left eye Atrial fibrillation Renal artery stenosis Abnormal ankle brachial index (ZORA) Peripheral arterial disease Smoking greater than 30 pack years COPD mixed type Pleural effusion Syncope Hypokalemia COPD exacerbation Fall at home Pulmonary edema Adverse effect of antiplatelet agent Acute lower gastrointestinal bleeding Ischemic bowel disease Diarrhea Epigastric pain Chest pain Gastroesophageal reflux disease Presence of Watchman left atrial appendage closure device Angina, class II Aortic insufficiency Elevated troponin TIA (transient ischemic attack) Rapid atrial fibrillation Atrial fibrillation with RVR Anxiety Dyspnea Bilateral carotid artery stenosis Stress reaction Palpitations Blood loss anemia Abdominal pain Apical variant hypertrophic cardiomyopathy Burning with urination 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 Paroxysmal atrial fibrillation CAD (coronary artery disease) New onset a-fib Carotid artery stenosis Pulmonary HTN Diastolic dysfunction Subclavian artery stenosis, right Hyperlipidemia Hypertension NSTEMI (non-ST elevated myocardial infarction) Anxiety disorder Tobacco abuse Arteriosclerotic cardiovascular disease Surgical History History of colonoscopy History of right heart catheterization (RHC) History of appendectomy History of cholecystectomy History of hysterectomy Status post carotid endarterectomy Family History Other Cancer Coronary artery disease Diabetes Family history of diabetes mellitus type II Family history of myocardial infarction Hypertension Stroke Social History Smoking Status: Former smoker tobacco type: cigarettes packs per day: 1 alcohol intake: never substance use type: denies use current occupational status: retired Travel in the last 8 weeks: None household members: none housing: house lives independently: Yes marital status: single education level: middle school service: No caffeine: No special fanny needs: No agree to transfusion: No do you feel safe at home: Yes victim of physical abuse: No victim of emotional abuse: No victim of sexual abuse: No would you like helpful sources: No Review of Systems Review of Systems Review of systems:: pertinent systems reviewed and negative unless documented below Constitutional Constitutional: Reports fatigue, Denies fever(s), Reports lethargy, Reports malaise and Reports weakness Eyes Eyes: Reports system reviewed and no additional complaints, except as documented and Reports change in vision (recent) ENT Ears, Nose, Mouth, and Throat: Reports system reviewed and no additional complaints, except as documented, Reports disequilibrium and Reports dizziness *Cardiovascular Cardiovascular: Reports as per HPI, Denies chest pain, Reports dyspnea on exertion, Denies leg edema, Reports lightheadedness and Denies pedal edema *Respiratory Respiratory: Reports dyspnea on exertion *Gastrointestinal Gastrointestinal: Reports system reviewed and no additional complaints, except as documented, Denies coffee ground emesis, Denies cramping, Denies hematemesis, Denies hematochezia and Denies melena *Genitourinary Genitourinary: Reports system reviewed and no additional complaints, except as documented *Musculoskeletal Musculoskeletal: Reports arthralgias, Reports atrophy, Reports back pain, Reports deformity, Reports muscle weakness and Reports myalgias Integumentary/Breasts Skin/Breast: Reports system reviewed and no additional complaints, except as documented, Denies bleeding lesions, Reports change in pigmentation (cyanosis) and Denies jaundice *Neurologic Neurologic: Reports as per HPI, Reports confusion, Denies convulsions, Reports disequilibrium, Reports dizziness and Reports weakness Psychiatric Psychiatric: Reports confusion Endocrine Endocrine: Reports fatigue Hematologic/Lymphatic Hematologic/Lymphatic: Reports easy bruising Allergic/Immunologic Allergic/Immunologic: Reports system reviewed and no additional complaints, except as documented Meds Home Medications and Allergies Home Medications Medication Instructions Recorded Confirmed Type gabapentin 100 mg capsule 100 mg PO HS 04/21/19 12/07/23 History atorvastatin 10 mg tablet 10 mg PO Q48H 05/05/19 12/07/23 History aspirin 81 mg tablet,delayed 81 mg PO DAILY 07/26/19 12/07/23 History release acetaminophen 650 mg 650 mg PO BID 11/13/20 12/07/23 History tablet,extended release buspirone 10 mg tablet 10 mg PO TID 11/13/20 12/07/23 History furosemide 20 mg tablet 20 mg PO DAILY 09/11/21 12/07/23 History diltiazem HCl 180 mg 180 mg PO DAILY 03/09/22 12/07/23 History capsule,extended release 24 hr, controlled potassium chloride 10 mEq 10 meq PO BID 02/26/23 12/07/23 History capsule,extended release clopidogrel 75 mg tablet 75 mg PO DAILY 07/17/23 12/07/23 History dicyclomine 20 mg tablet 10 mg PO QIDP PRN Stomach cramps 07/17/23 12/07/23 History fluticasone propionate 50 50 mcg intranasal BIDP PRN 07/17/23 12/07/23 History mcg/actuation nasal Allergic Symptoms spray,suspension (Flonase Allergy Relief) ipratropium 0.5 mg-albuterol 3 mg 3 ml inhalation QID PRN shortness 08/25/23 12/07/23 Rx (2.5 mg base)/3 mL nebulization of breath or wheezing 90 days #90 soln mL pantoprazole 40 mg tablet,delayed 40 mg PO DAILYP PRN Acid Reflux 11/06/23 12/07/23 History release spironolactone 25 mg tablet 25 mg PO DAILY 11/06/23 12/07/23 History tiotropium bromide 2.5 2 puff inhalation DAILY 11/06/23 12/07/23 History mcg/actuation mist for inhalation (Spiriva Respimat) metoprolol succinate 100 mg 100 mg PO DAILY #90 tabs 11/24/23 12/07/23 Rx tablet,extended release 24 hr New Prescriptions to Start Prescriptions: Allergies Allergy/AdvReac Type Severity Reaction Status Date / Time beef derived (bovine) Allergy Unknown Verified 10/02/23 13:38 allergy reaction lactose Allergy Unknown Verified 10/02/23 13:38 allergy reaction Penicillins Allergy Unknown Verified 10/02/23 13:38 allergy reaction Sulfa (Sulfonamide Allergy Verified 10/02/23 13:38 Antibiotics) Exam Data for Last 24 hours Vital signs and Labs for Last 24 Hours: Temp Pulse Resp BP Pulse Ox O2 Del Method O2 Flow Rate 97.7 F 57 L 21 100/39 L 98 Nasal Cannula 5 12/07/23 21:17 12/07/23 21:17 12/07/23 21:17 12/07/23 21:17 12/07/23 20:30 12/07/23 21:17 12/07/23 21:17 Laboratory Results - last 24 hr 12/07/23 19:25: WBC 12.4 H, RBC 3.19 L, Hgb 7.7 L, Hct 26.7 L, MCV 83.5, MCH 24.1 L, MCHC 28.9 L, RDW 18.5 H, Plt Count 349, MPV 8.1, Neut % (Auto) 76.0, Lymph % (Auto) 16.0, [place] % (Auto) 7.3, Eos % (Auto) 0.5, Baso % (Auto) 0.2, Neut # (Auto) 9.4 H, Lymph # (Auto) 2.0, [place] # (Auto) 0.9, Eos # (Auto) 0.1, Baso # (Auto) 0.0, PT 11.1, INR 1.03, APTT 23.3, Sodium 138, Potassium 5.4 H, Chloride 108 H, Carbon Dioxide 23, Anion Gap 12.4, BUN 25 H, Creatinine 1.10 H, Estimated Creat Clear 24, Estimated GFR 48 L, Est GFR ( Amer) 58 L, Glucose 131 H, Lactate 3.9 H, Calcium 9.1, Total Bilirubin 0.6, AST 35, ALT 28, Alkaline Phosphatase 133 H, Troponin I 0.11 H, NT-Pro-B Natriuret Pep 5130 H, Total Protein 6.0 L, Albumin 3.4 L, Globulin 2.6, Albumin/Globulin Ratio 1.3, Procalcitonin 0.090 12/07/23 19:34: VBG pH 7.35, VBG pCO2 36.3, VBG pO2 36.0, VBG HCO3 19.4 L, VBG Total CO2 20.5 L, VBG O2 Saturation 63.5, VBG Base Excess -6.3 L, VBG Lactic Acid 4.6 H 12/07/23 20:10: Urine Color Yellow, Urine Appearance Clear, Urine pH 5.5, Ur Specific [place] 1.015, Urine Protein Negative, Urine Glucose (UA) Negative, Urine Ketones Negative, Urine Blood Negative, Urine Nitrate Negative, Urine Bilirubin Negative, Urine Urobilinogen 0.2, Ur Leukocyte Esterase Negative, Urine RBC None, Urine WBC None, Ur Squamous Epith Cells Occasional, Urine Bacteria Trace 12/07/23 20:36: Blood Type AB Negative, Antibody Screen Negative, Crossmatch (AHG) See Detail I & O for Last 24 hours: Intake & Output 12/05/23 12/06/23 12/07/23 12/08/23 11:59 11:59 11:59 11:59 Weight 85 lb Constitutional Constitutional: moderate distress (lethargic, but c/o generalized discomfort), cachectic and chronically ill appearing *Routine HEENT Exam Head: Present normocephalic Eye: Present PERRL ENT: Present mucous membranes dry *Routine Neck Exam Neck: Present full ROM; Absent meningismus Routine Chest/Breast/Axilla Exam Chest wall: Absent tenderness *Routine Respiratory Exam Respiratory: Present decreased breath sounds; Absent respiratory distress *Routine Cardiovascular Exam Cardiovascular: Present irregular rhythm *Routine Abdominal Exam Abdominal: Present soft; Absent tenderness or distended *Routine Rectal Exam Rectal:: deferred *Routine Genitalia Exam Genitalia:: deferred *Routine Extremities Exam Extremities: Present cyanosis; Absent edema Comments: dressing on wound of the left knee Routine Back/Spine/Pelvis Exam Back/Spine: Present kyphosis; Absent CVA tenderness *Routine Skin Exam Skin: Present wounds (left knee with full thickness wound 4 cm) *Routine Neurological Exam Neurological: Present oriented X3 and altered mental status (lethargic, but c/o pain) Routine Psychiatric Exam Psychiatric: Present unable to assess Assessment and Plan *Assessment and plan (1) Acute anemia: Status: Acute Category: Medical Code(s): D64.9 - Anemia, unspecified (2) Septic shock: Status: Acute Category: Medical Code(s): A41.9 - Sepsis, unspecified organism; R65.21 - Severe sepsis with septic shock (3) Peripheral arterial disease: Status: Acute Category: Medical Code(s): I73.9 - Peripheral vascular disease, unspecified (4) Leg wound, left: Status: Acute Category: Medical Code(s): S81.802A - Unspecified open wound, left lower leg, initial encounter (5) Smoking greater than 30 pack years: Status: Acute Category: Social Hx Code(s): F17.210 - Nicotine dependence, cigarettes, uncomplicated (6) COPD mixed type: Status: Acute Category: Medical Code(s): J44.9 - Chronic obstructive pulmonary disease, unspecified (7) Cardiac murmur, unspecified: Status: Acute Category: Medical Code(s): R01.1 - Cardiac murmur, unspecified (8) Presence of Watchman left atrial appendage closure device: Status: Chronic Category: Medical Code(s): Z95.818 - Presence of other cardiac implants and grafts (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: Status: Chronic Category: Medical Code(s): Z79.01 - 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 (current) use of anticoagulants (10) Arteriosclerotic cardiovascular disease: Status: Chronic Category: Medical Code(s): I25.10 - Atherosclerotic heart disease of telida coronary artery without angina pectoris (11) Status post carotid endarterectomy: Status: Chronic Category: Surgical Code(s): Z98.890 - Other specified postprocedural states (12) Hypertension: Status: Chronic Qualifiers: Hypertension type: essential hypertension Qualified Code(s): I10 - Essential (primary) hypertension Category: Medical Code(s): I10 - Essential (primary) hypertension (13) Tobacco abuse: Status: Chronic Category: Medical Code(s): Z72.0 - Tobacco use Plan IV fluids. IV antibiotics. Blood transfusion is pending. She is receiving Vapotherm to maintain her oxygen saturations. She is currently on Levophed.
[2023-12-07] MEDS: 0.9 % SODIUM CHLORIDE 250 ML 25 ML IV (22:15)
[2023-12-07] MEDS: 0.9 % SODIUM CHLORIDE 1000ML 1,000 ML 125 ML IV (22:36)
--- NOTE | 2023-12-07 22:57 | ECG_ITS ---
APPROVED REPORT Exam: Resting ECG HR:99 bpm ECG Measurements Heart Rate 99 AXES QRSd 75 QRS -3 QT 294 T 0 QTc 350 Conclusion SUPRAVENTRICULAR RHYTHM ANTEROSEPTAL MYOCARDIAL INFARCTION , PROBABLY OLD [40+ ms Q WAVE IN V1-V4] ABNORMAL ECG UNCONFIRMED REPORT Electronically signed by : Janes Naranjo MD 12/09/2023 21:38:05
--- NOTE | 2023-12-07 23:21 | PC.NURSE ---
DR. PAGAN @ BEDSIDE TO DISCUSS NEW ORDERS PER MD AND CARDS; THIS RN IS TO START AN EPI GTT TO TREAT THE PT'S BRADYCARDIA; VERBAL ORDER GIVEN TO THIS RN PER MD LATASHA TO STOP EPI GTT IF HR IS GREATER THAN 100 BPM WHILE ON EPI GTT.
[2023-12-07] MEDS: EPINEPHrine 5 MG in 0.9 % SODIUM CHLORIDE 250 ML 6.12000000000000011 MG IV (23:35)
[2023-12-07 23:50] LABS: Reflex Lactic Add Lactic Reflex
[2023-12-08] VITALS (33 sets, daily range): BP systolic 90–136; BP diastolic 39–110; PULSE 49–95; RESP 14–25; TEMP 36.2–37.8; O2SAT 91–100; BMI 18.8
[2023-12-08] MEDS: GLUCAGON 1 MG/ML VIAL IV (00:08)
[2023-12-08 02:53] LABS: Hematocrit 30.4 % (37.0-47.0)
[2023-12-08 03:01] LABS: Hemoglobin 9.2 g/dL (12.2-16.2)
[2023-12-08 03:11] LABS: Lactic Acid Follow Up (RFLX 1) 4.1 mmol/L (0.7-2.1)
[2023-12-08 03:14] LABS: Troponin I 0.09 ng/ml (0.00-0.034)
[2023-12-08 04:49] LABS: Reflex Lactic (2 hrs) Add Lactic Reflex
--- NOTE | 2023-12-08 05:15 | PC.NURSE ---
3119 DR. PAGAN PAGED BY THIS RN FOR PAIN MANAGEMENT; PT AND FAMILY WOULD LIKE TYLENOL AND GABAPENTIN REORDERED
[2023-12-08] MEDS: ACETAMINOPHEN 325MG TAB 650 MG PO ×2 (05:47→16:36)
[2023-12-08] MEDS: GABAPENTIN 100MG CAPSULE 100 MG PO (05:47)
[2023-12-08] MEDS: 0.9 % SODIUM CHLORIDE 1000ML 1,000 ML 100 ML IV ×2 (05:48→17:49)
[2023-12-08 06:46] LABS: Alanine Aminotransferase 256 U/L (12-78); Albumin Level 2.9 g/dl (3.5-5.0); Albumin/Globulin Ratio 1.3 (1.1-1.8); Alkaline Phosphatase 206 U/L (38-126); Anion Gap 13.8 mEq/L (5-15); Aspartate Amino Transferase 307 U/L (14-36); Bilirubin,Total 0.9 mg/dl (0.2-1.3); Blood Urea Nitrogen 29 mg/dl (7-17); Calcium 8.3 mg/dl (8.4-10.2); Carbon Dioxide 23 mmol/L (22.0-30.0); Chloride 105 mmol/L (98-107); Creatinine Clearance Estimated 35 mL/min (50-200); Estimated Glomerular Filt Rate 53 ml/min (>60); GFR (African American) 64 ML/MIN (>60); Globulin 2.3 g/dL (1.3-3.2); Glucose 158 mg/dl (74-100); Potassium 4.8 mmoL/L (3.5-5.1); Sodium 137 mmol/L (136-145); Total Protein,Serum 5.2 g/dl (6.3-8.2)
[2023-12-08 06:49] LABS: Basophils % 0.2 % (0.1-2.0); Eosinophils % 0.1 % (0.1-12.0); Hematocrit 29.8 % (37.0-47.0); Hemoglobin 8.7 g/dL (12.2-16.2); Lymphocytes # 0.8 K/mm3 (0.7-4.5); Lymphocytes % 4.1 % (10-50); Mean Corpuscular HGB Conc 29.1 g/dL (31.8-35.4); Mean Corpuscular Hemoglobin 24.7 pg (27.0-31.2); Mean Corpuscular Volume 84.8 fl (81-99); Mean Platelet Volume 8.8 fl (7.4-10.4); Monocytes % 5.2 % (1.7-9.3); Neutrophils # 18.1 K/mm3 (1.8-7.8); Neutrophils % 90.5 % (37.0-80.0); Platelet Count 312 K/mm3 (142-424); Red Blood Count 3.52 M/mm3 (4.20-5.40); Red Cell Distribution Width 18.6 % (11.5-17.5)
[2023-12-08 06:53] LABS: MANUAL DIFFERENTIAL MANUAL DIFFERENTIAL (MANUAL DIFF)
[2023-12-08 06:55] LABS: Troponin I 0.07 ng/ml (0.00-0.034)
[2023-12-08 07:05] LABS: Lactic Acid Follow up (RFLX 2) 4.1 mmol/L (0.7-2.1)
[2023-12-08 08:06] LABS: Hypochromasia 1+; Lymphocytes % 8 % (10-50); Monocytes % 7 % (2-9); Neutrophils % 85 % (42-76); Platelet Estimate Normal; Total Cells Counted 100
--- NOTE | 2023-12-08 08:09 | EXP.PHA.CONS ---
Pharmacy Consult Date: 12/08/23 Time: 08:09 Referring provider: DR. PERKINS Reason for Consult:: VANCOMYCIN DOSING Allergies Allergy/AdvReac Type Severity Reaction Status Date / Time beef derived (bovine) Allergy Unknown Verified 10/02/23 13:38 allergy reaction lactose Allergy Unknown Verified 10/02/23 13:38 allergy reaction Penicillins Allergy Unknown Verified 10/02/23 13:38 allergy reaction Sulfa (Sulfonamide Allergy Verified 10/02/23 13:38 Antibiotics) Home Medications Medication Instructions Recorded Confirmed Type gabapentin 100 mg capsule 100 mg PO HS 04/21/19 12/07/23 History atorvastatin 10 mg tablet 10 mg PO Q48H 05/05/19 12/07/23 History aspirin 81 mg tablet,delayed 81 mg PO DAILY 07/26/19 12/07/23 History release acetaminophen 650 mg 650 mg PO BID 11/13/20 12/07/23 History tablet,extended release buspirone 10 mg tablet 10 mg PO TID 11/13/20 12/07/23 History furosemide 20 mg tablet 20 mg PO DAILY 09/11/21 12/07/23 History diltiazem HCl 180 mg 180 mg PO DAILY 03/09/22 12/07/23 History capsule,extended release 24 hr, controlled potassium chloride 10 mEq 10 meq PO BID 02/26/23 12/07/23 History capsule,extended release clopidogrel 75 mg tablet 75 mg PO DAILY 07/17/23 12/07/23 History dicyclomine 20 mg tablet 10 mg PO QIDP PRN Stomach cramps 07/17/23 12/07/23 History fluticasone propionate 50 50 mcg intranasal BIDP PRN 07/17/23 12/07/23 History mcg/actuation nasal Allergic Symptoms spray,suspension (Flonase Allergy Relief) ipratropium 0.5 mg-albuterol 3 mg 3 ml inhalation QID PRN shortness 08/25/23 12/07/23 Rx (2.5 mg base)/3 mL nebulization of breath or wheezing 90 days #90 soln mL pantoprazole 40 mg tablet,delayed 40 mg PO DAILYP PRN Acid Reflux 11/06/23 12/07/23 History release spironolactone 25 mg tablet 25 mg PO DAILY 11/06/23 12/07/23 History tiotropium bromide 2.5 2 puff inhalation DAILY 11/06/23 12/07/23 History mcg/actuation mist for inhalation (Spiriva Respimat) metoprolol succinate 100 mg 100 mg PO DAILY #90 tabs 11/24/23 12/07/23 Rx tablet,extended release 24 hr New Prescriptions to Start Prescriptions: Height: 1.63 m Weight: 50.009 kg Laboratory Results:: Laboratory Results - last 24 hr 12/07/23 19:25: WBC 12.4 H, RBC 3.19 L, Hgb 7.7 L, Hct 26.7 L, MCV 83.5, MCH 24.1 L, MCHC 28.9 L, RDW 18.5 H, Plt Count 349, MPV 8.1, Neut % (Auto) 76.0, Lymph % (Auto) 16.0, [place] % (Auto) 7.3, Eos % (Auto) 0.5, Baso % (Auto) 0.2, Neut # (Auto) 9.4 H, Lymph # (Auto) 2.0, [place] # (Auto) 0.9, Eos # (Auto) 0.1, Baso # (Auto) 0.0, PT 11.1, INR 1.03, APTT 23.3, Sodium 138, Potassium 5.4 H, Chloride 108 H, Carbon Dioxide 23, Anion Gap 12.4, BUN 25 H, Creatinine 1.10 H, Estimated Creat Clear 24, Estimated GFR 48 L, Est GFR ( Amer) 58 L, Glucose 131 H, Lactate 3.9 H, Calcium 9.1, Total Bilirubin 0.6, AST 35, ALT 28, Alkaline Phosphatase 133 H, Troponin I 0.11 H, NT-Pro-B Natriuret Pep 5130 H, Total Protein 6.0 L, Albumin 3.4 L, Globulin 2.6, Albumin/Globulin Ratio 1.3, Procalcitonin 0.090 12/07/23 19:34: VBG pH 7.35, VBG pCO2 36.3, VBG pO2 36.0, VBG HCO3 19.4 L, VBG Total CO2 20.5 L, VBG O2 Saturation 63.5, VBG Base Excess -6.3 L, VBG Lactic Acid 4.6 H 12/07/23 20:10: Urine Color Yellow, Urine Appearance Clear, Urine pH 5.5, Ur Specific [place] 1.015, Urine Protein Negative, Urine Glucose (UA) Negative, Urine Ketones Negative, Urine Blood Negative, Urine Nitrate Negative, Urine Bilirubin Negative, Urine Urobilinogen 0.2, Ur Leukocyte Esterase Negative, Urine RBC None, Urine WBC None, Ur Squamous Epith Cells Occasional, Urine Bacteria Trace 12/07/23 20:36: Blood Type AB Negative, Antibody Screen Negative, Crossmatch (AHG) See Detail 12/08/23 02:43: Hgb 9.2 L D, Hct 30.4 L, Lactate 4.1 H, Troponin I 0.09 H 12/08/23 05:37: WBC 20.0 H D, RBC 3.52 L, Hgb 8.7 L, Hct 29.8 L, MCV 84.8, MCH 24.7 L, MCHC 29.1 L, RDW 18.6 H, Plt Count 312, MPV 8.8, Neut % (Auto) 90.5 H, Lymph % (Auto) 4.1 L, [place] % (Auto) 5.2, Eos % (Auto) 0.1, Baso % (Auto) 0.2, Neut # (Auto) 18.1 H, Lymph # (Auto) 0.8, [place] # (Auto) 1.0, Eos # (Auto) 0.0, Baso # (Auto) 0.0, Total Counted 100, Neutrophils % (Manual) 85 H, Lymphocytes % (Manual) 8 L, Monocytes % (Manual) 7, Platelet Estimate Normal, Hypochromasia 1+, Sodium 137, Potassium 4.8, Chloride 105, Carbon Dioxide 23, Anion Gap 13.8, BUN 29 H, Creatinine 1.00, Estimated Creat Clear 35, Estimated GFR 53 L, Est GFR ( Amer) 64, Glucose 158 H D, Lactate 4.1 H, Calcium 8.3 L, Total Bilirubin 0.9, AST 307 H* D, ALT 256 H D, Alkaline Phosphatase 206 H, Total Protein 5.2 L, Albumin 2.9 L D, Globulin 2.3, Albumin/Globulin Ratio 1.3 12/08/23 06:00: Troponin I 0.07 H Medical History: Medical History (Updated 12/07/23 @ 21:00 by Pura Mejia MD) Abnormal EKG Urinary retention Acute UTI Periorbital ecchymosis of left eye Atrial fibrillation Renal artery stenosis Abnormal ankle brachial index (ZORA) Peripheral arterial disease Smoking greater than 30 pack years COPD mixed type Pleural effusion Syncope Hypokalemia COPD exacerbation Fall at home Pulmonary edema Adverse effect of antiplatelet agent Acute lower gastrointestinal bleeding Ischemic bowel disease Diarrhea Epigastric pain Chest pain Gastroesophageal reflux disease Presence of Watchman left atrial appendage closure device Angina, class II Aortic insufficiency Elevated troponin TIA (transient ischemic attack) Rapid atrial fibrillation Atrial fibrillation with RVR Anxiety Dyspnea Bilateral carotid artery stenosis Stress reaction Palpitations Blood loss anemia Abdominal pain Apical variant hypertrophic cardiomyopathy Burning with urination 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 Paroxysmal atrial fibrillation CAD (coronary artery disease) New onset a-fib Carotid artery stenosis Pulmonary HTN Diastolic dysfunction Subclavian artery stenosis, right Hyperlipidemia Hypertension NSTEMI (non-ST elevated myocardial infarction) Anxiety disorder Tobacco abuse Arteriosclerotic cardiovascular disease Assessment and Plan Assessment and plan all Dx Assessment and Plan for all problems:: Pharmacokinetic dosing service Objective: Patient: Floor: Age: 83 yo Serum creatinine: 1 mg/dL Height: 64.2 Inches Weight (kg): 50 Assessment: IBW (kg): 55.16 Dosing wt(kg): 50 Estimated Creatinine clearance (ml/min): 34.8 CRCL method: Cockcroft and Gault using ibw(default). Drug selected: Vancomycin Loading dose (mg): 0 Vd (liters): 40.0 (factor used: 0.8 L/kg) Mic (hr-1): 0.033 Half life (hrs): 21.00 Recommended dose: 750 mg Interval: 24 hrs Infusion time (hrs): 2.0 Predicted peak (mcg/mL): 33.2 Predicted trough (mcg/mL): 16.06 Total body weight is being used for vancomycin dosing. Recommendations: Give Vancomycin 750 mg q 24 hrs with an expected Cpeak of 33.2 mcg/ml and an expected Ctrough of 16.06 mcg/ml ----Vanco only - ignore for aminoglycosides----- CLvanco= 1.32 L/hr AUC 0-24 /TORO Data: TORO 0.5 mcg/mL: AUC/TORO: 1136.4 TROO 1.0 mcg/mL: AUC/TORO: 568.2 --------- TORO 1.5 mcg/mL: AUC/TORO: 378.8 TORO 2.0 mcg/mL: AUC/TORO: 284.1
--- NOTE | 2023-12-08 08:46 | EXP.ACUTE.PN ---
Subjective *Date: 12/08/23 *Time: 08:46 Interval history: She survive the night. She received 1 unit of packed red blood cells. Her H&H is above 8 this morning. She is more alert but keeps asking to go outside. Her color is better. She is not in respiratory distress. Her oxygen saturations are good. Her heart rate is improved but she is still on epinephrine IV drip. Cardiology is being consulted. Medical Exam Vital signs and Labs for Last 24 Hours: Vital Signs Temp Pulse Pulse Resp BP BP Pulse Ox 12/08/23 08:00 71 25 H 99/50 L 100 12/08/23 07:00 67 18 111/56 L 100 12/08/23 06:00 68 20 121/58 L 100 12/08/23 05:00 69 16 130/56 L 100 12/08/23 05:00 12/08/23 04:00 68 18 123/71 100 12/08/23 04:00 12/08/23 04:00 50 L 12/08/23 03:00 59 L 18 135/110 H 100 12/08/23 03:00 12/08/23 02:00 64 16 134/69 100 12/08/23 01:28 97.2 F L 55 L 22 118/59 L 100 12/08/23 01:00 64 16 117/48 L 100 12/08/23 01:00 12/08/23 00:28 97.2 F L 49 L 19 136/49 L 100 12/08/23 00:15 97.2 F L 56 L 17 127/63 100 12/08/23 00:00 49 L 16 119/46 L 91 L 12/08/23 00:00 50 L 12/07/23 23:15 97.2 F L 41 L 35 H 105/54 L 100 12/07/23 23:07 50 L 12/07/23 23:00 97.2 F L 50 L 21 98/47 L 100 12/07/23 23:00 12/07/23 22:45 97.3 F L 43 L 32 H 101/36 L 100 12/07/23 22:30 48 F L 54 L 37 H 109/46 L 100 12/07/23 22:25 97.5 F L 54 L 34 H 81/55 L 100 12/07/23 22:20 97.5 F L 72 35 H 98/39 L 100 12/07/23 22:15 97.7 F 55 L 37 H 92/60 L 98 12/07/23 21:17 97.7 F 57 L 21 100/39 L 12/07/23 20:30 97.3 F L 55 L 21 108/50 L 98 12/07/23 20:18 97.3 F L 60 34 H 100/45 L 96 12/07/23 20:14 96 F L 42 L 28 H 99/51 L 12/07/23 19:17 97.2 F L 43 L 18 103/47 L 98 O2 Del Method O2 Flow Rate 12/08/23 08:00 Nasal Cannula 2 12/08/23 07:00 12/08/23 06:00 12/08/23 05:00 12/08/23 05:00 Nasal Cannula 12/08/23 04:00 12/08/23 04:00 Nasal Cannula 2 12/08/23 04:00 12/08/23 03:00 12/08/23 03:00 Nasal Cannula 12/08/23 02:00 12/08/23 01:28 12/08/23 01:00 12/08/23 01:00 Nasal Cannula 12/08/23 00:28 12/08/23 00:15 12/08/23 00:00 12/08/23 00:00 12/07/23 23:15 12/07/23 23:07 12/07/23 23:00 12/07/23 23:00 Nasal Cannula 12/07/23 22:45 12/07/23 22:30 12/07/23 22:25 12/07/23 22:20 12/07/23 22:15 12/07/23 21:17 Nasal Cannula 5 12/07/23 20:30 2 12/07/23 20:18 2 12/07/23 20:14 12/07/23 19:17 Nasal Cannula 5 Intake and Output 12/07/23 12/08/23 12/08/23 19:59 03:59 11:59 Intake Total 250 / 250 Output Total 300 / 300 Balance 250 / -50 -300 / -50 Intake: Intake (Blood Product) Amt 250 / 250 Red Blood Cells Unit 250 / 250 [id number] Output: Output, Urine Amount 300 / 300 Other: Weight 85 lb 110 lb 4 oz 110 lb 4 oz Patient Weight 12/08/23 11:59 Weight 110 lb 4 oz Laboratory Results - last 24 hr 12/07/23 19:25: WBC 12.4 H, RBC 3.19 L, Hgb 7.7 L, Hct 26.7 L, MCV 83.5, MCH 24.1 L, MCHC 28.9 L, RDW 18.5 H, Plt Count 349, MPV 8.1, Neut % (Auto) 76.0, Lymph % (Auto) 16.0, [place] % (Auto) 7.3, Eos % (Auto) 0.5, Baso % (Auto) 0.2, Neut # (Auto) 9.4 H, Lymph # (Auto) 2.0, [place] # (Auto) 0.9, Eos # (Auto) 0.1, Baso # (Auto) 0.0, PT 11.1, INR 1.03, APTT 23.3, Sodium 138, Potassium 5.4 H, Chloride 108 H, Carbon Dioxide 23, Anion Gap 12.4, BUN 25 H, Creatinine 1.10 H, Estimated Creat Clear 24, Estimated GFR 48 L, Est GFR ( Amer) 58 L, Glucose 131 H, Lactate 3.9 H, Calcium 9.1, Total Bilirubin 0.6, AST 35, ALT 28, Alkaline Phosphatase 133 H, Troponin I 0.11 H, NT-Pro-B Natriuret Pep 5130 H, Total Protein 6.0 L, Albumin 3.4 L, Globulin 2.6, Albumin/Globulin Ratio 1.3, Procalcitonin 0.090 12/07/23 19:34: VBG pH 7.35, VBG pCO2 36.3, VBG pO2 36.0, VBG HCO3 19.4 L, VBG Total CO2 20.5 L, VBG O2 Saturation 63.5, VBG Base Excess -6.3 L, VBG Lactic Acid 4.6 H 12/07/23 20:10: Urine Color Yellow, Urine Appearance Clear, Urine pH 5.5, Ur Specific [place] 1.015, Urine Protein Negative, Urine Glucose (UA) Negative, Urine Ketones Negative, Urine Blood Negative, Urine Nitrate Negative, Urine Bilirubin Negative, Urine Urobilinogen 0.2, Ur Leukocyte Esterase Negative, Urine RBC None, Urine WBC None, Ur Squamous Epith Cells Occasional, Urine Bacteria Trace 12/07/23 20:36: Blood Type AB Negative, Antibody Screen Negative, Crossmatch (AHG) See Detail 12/08/23 02:43: Hgb 9.2 L D, Hct 30.4 L, Lactate 4.1 H, Troponin I 0.09 H 12/08/23 05:37: WBC 20.0 H D, RBC 3.52 L, Hgb 8.7 L, Hct 29.8 L, MCV 84.8, MCH 24.7 L, MCHC 29.1 L, RDW 18.6 H, Plt Count 312, MPV 8.8, Neut % (Auto) 90.5 H, Lymph % (Auto) 4.1 L, [place] % (Auto) 5.2, Eos % (Auto) 0.1, Baso % (Auto) 0.2, Neut # (Auto) 18.1 H, Lymph # (Auto) 0.8, [place] # (Auto) 1.0, Eos # (Auto) 0.0, Baso # (Auto) 0.0, Total Counted 100, Neutrophils % (Manual) 85 H, Lymphocytes % (Manual) 8 L, Monocytes % (Manual) 7, Platelet Estimate Normal, Hypochromasia 1+, Sodium 137, Potassium 4.8, Chloride 105, Carbon Dioxide 23, Anion Gap 13.8, BUN 29 H, Creatinine 1.00, Estimated Creat Clear 35, Estimated GFR 53 L, Est GFR ( Amer) 64, Glucose 158 H D, Lactate 4.1 H, Calcium 8.3 L, Total Bilirubin 0.9, AST 307 H* D, ALT 256 H D, Alkaline Phosphatase 206 H, Total Protein 5.2 L, Albumin 2.9 L D, Globulin 2.3, Albumin/Globulin Ratio 1.3 12/08/23 06:00: Troponin I 0.07 H I & O for Labs for Last 24 Hours: Intake & Output 12/05/23 12/06/23 12/07/23 12/08/23 11:59 11:59 11:59 11:59 Intake Total 250 / 250 Output Total 300 / 300 Balance -50 / -50 Weight 110 lb 4 oz Head: Present normocephalic Neck: Present normal inspection Respiratory: Present decreased breath sounds; Absent respiratory distress Cardiac: Present Bradycardia; Absent Regular Rate or Regular Rhythm GI: Present soft; Absent distention or tenderness Rectal (female): Present deferred (female): Present deferred Extremities: Absent edema Skin: Present cyanosis (Has improved.) Neuro: Present alert (But confused.) Assessment and Plan *Assessment and plan (1) Acute anemia: Status: Acute Category: Medical Code(s): D64.9 - Anemia, unspecified (2) Septic shock: Status: Acute Category: Medical Code(s): A41.9 - Sepsis, unspecified organism; R65.21 - Severe sepsis with septic shock (3) Peripheral arterial disease: Status: Acute Category: Medical Code(s): I73.9 - Peripheral vascular disease, unspecified (4) Leg wound, left: Status: Acute Category: Medical Code(s): S81.802A - Unspecified open wound, left lower leg, initial encounter (5) Smoking greater than 30 pack years: Status: Acute Category: Social Hx Code(s): F17.210 - Nicotine dependence, cigarettes, uncomplicated (6) COPD mixed type: Status: Acute Category: Medical Code(s): J44.9 - Chronic obstructive pulmonary disease, unspecified (7) Cardiac murmur, unspecified: Status: Acute Category: Medical Code(s): R01.1 - Cardiac murmur, unspecified (8) Presence of Watchman left atrial appendage closure device: Status: Chronic Category: Medical Code(s): Z95.818 - Presence of other cardiac implants and grafts (9) nursing home current use of anticoagulant: Status: Chronic Category: Medical Code(s): Z79.01 - nursing home (current) use of anticoagulants (10) Carotid artery stenosis: Status: Chronic Qualifiers: Laterality: bilateral Qualified Code(s): I65.23 - Occlusion and stenosis of bilateral carotid arteries Category: Medical Code(s): I65.29 - Occlusion and stenosis of unspecified carotid artery (11) Arteriosclerotic cardiovascular disease: Status: Chronic Category: Medical Code(s): I25.10 - Atherosclerotic heart disease of [place]jas coronary artery without angina pectoris (12) Status post carotid endarterectomy: Status: Chronic Category: Surgical Code(s): Z98.890 - Other specified postprocedural states (13) Hypertension: Status: Chronic Qualifiers: Hypertension type: essential hypertension Qualified Code(s): I10 - Essential (primary) hypertension Category: Medical Code(s): I10 - Essential (primary) hypertension (14) Hyperlipidemia: Status: Chronic Qualifiers: Hyperlipidemia type: mixed hyperlipidemia Qualified Code(s): E78.2 - Mixed hyperlipidemia Category: Medical Code(s): E78.5 - Hyperlipidemia, unspecified (15) Tobacco abuse: Status: Chronic Category: Medical Code(s): Z72.0 - Tobacco use Plan Cardiac consult pending. Still on epinephrine drip.
--- NOTE | 2023-12-08 09:01 | CA_ITS ---
APPROVED REPORT EXAM: Limited 2D Echocardiogram Budget Counselor: Brittni Escalante CRT Ht: 5 ft 4 in Wt: 110lbs BSA: 1.52 BP: 100/39 mmHg Indications: AFIB, PHTN, CAD, CHF, PVD, COPD, HTN, HLD,STENTS 2D Dimensions EF AP4 72.70 % GL Strain -30.4 % M-Mode Dimensions RVDd 2.55 cm (0.9-2.6) LA Diam 3.86 cm (1.9-4.0) LVDd 3.71 cm (3.5-5.7) LVDs 2.48 cm (3.5-5.7) IVSd 1.44 cm (0.6-1.1) PWd 1.10 cm (0.6-1.1) EF (Teich) 62.60% FS 33.20% EDV (Teich) 58.50 mL ESV (Teich) 21.90 mL Other Information Study Quality: Technically Difficult Conclusion This is a limited TTE to evaluate for LVEF. Limited windows were obtained. Technically difficult study due to poor acoustic windows. The left ventricle is normal in size. There is increased LV wall thickness. There is normal global LV systolic function. No regional wall motion abnormalities are noted. LVEF is 55%. The right ventricle appears mildly dilated with mild reduction in RV function. Severe biatrial dilation is present. Compared to prior study from 11/06/2023, there are no significant changes. Electronically signed by : Michaela Lowery MD 12/11/2023 00:17:50
[2023-12-08] MEDS: VANCOMYCIN HCL 750 MG in 0.9 % SODIUM CHLORIDE 250 ML 125 MG IV (09:59)
[2023-12-08] MEDS: FUROSEMIDE 20MG TABLET 20 MG PO ×2 (10:56→16:36)
--- NOTE | 2023-12-08 12:07 | PC.WOUNDNOTE ---
toes on left foot
--- NOTE | 2023-12-08 13:51 | P.CONCA_ITS ---
History of Present Illness History of Present Illness Consult date: 12/08/23 Requesting physician: Nazanin Puente Consult reason: shortness of breath Chief complaint: weakness, soa History of present illness: This is a 83-year-old white female with past medical history of coronary artery disease status post medical management heart cath in 2023, hypertension, hyperlipidemia, carotid artery stenosis with a history of right and left endarterectomy, CVA, PAD with a chronic wound to left anterior knee and left toes in which both are currently undergoing debridement with Dr. Puente, right subclavian stenting, celiac stenting and chronic A-fib s/p watchman's procedure. Patient presented to ER with complaints of progressive weakness, lethargy and soa since last Friday. Upon arrival to ER labs were as follow: WBC 12.4 trending up to 20, Hgb 7.7, Sodium 138, Potassium 5.4, creatinine 1.1, Lactate 3.9, AST 307, ALT 256, Alk phos 206, and trop 0.11 trending down to 0.07. EKG was significant for chronic afib but was rate controlled. Chest xray was clear for acute process. Upon arrival to ED patient was noted to be hypotensive and hypothermic. Concern for sepsis was high so sepsis protocol was initiated. Patient was unable to undergo CT chest or abdomen due to a combination of chronic pain and soa. Despite fluids bolus patient remained hypotenive and bradycardia. Patient was started on epi drip and vancomycin and admitted for septic shock. This morning patient is resting with family at bedside. She is status post 1 unit transfusion. Repeat echo is pending. [facility] Disclaimer: The information contained in this section may have been updated after the patient was seen, as this information can be updated by other users. Medical History Abnormal EKG Urinary retention Acute UTI Periorbital ecchymosis of left eye Atrial fibrillation Renal artery stenosis Abnormal ankle brachial index (ZORA) Peripheral arterial disease Smoking greater than 30 pack years COPD mixed type Pleural effusion Syncope Hypokalemia COPD exacerbation Fall at home Pulmonary edema Adverse effect of antiplatelet agent Acute lower gastrointestinal bleeding Ischemic bowel disease Diarrhea Epigastric pain Chest pain Gastroesophageal reflux disease Presence of Watchman left atrial appendage closure device Angina, class II Aortic insufficiency Elevated troponin TIA (transient ischemic attack) Rapid atrial fibrillation Atrial fibrillation with RVR Anxiety Dyspnea Bilateral carotid artery stenosis Stress reaction Palpitations Blood loss anemia Abdominal pain Apical variant hypertrophic cardiomyopathy Burning with urination Constipation intermediate current use of anticoagulant Paroxysmal atrial fibrillation CAD (coronary artery disease) New onset a-fib Carotid artery stenosis Pulmonary HTN Diastolic dysfunction Subclavian artery stenosis, right Hyperlipidemia Hypertension NSTEMI (non-ST elevated myocardial infarction) Anxiety disorder Tobacco abuse Arteriosclerotic cardiovascular disease Surgical History History of colonoscopy History of right heart catheterization (RHC) History of appendectomy History of cholecystectomy History of hysterectomy Status post carotid endarterectomy Family History Other Cancer Coronary artery disease Diabetes Family history of diabetes mellitus type II Family history of myocardial infarction Hypertension Stroke Social History Smoking Status: Former smoker tobacco type: cigarettes packs per day: 1 alcohol intake: never substance use type: denies use current occupational status: retired Travel in the last 8 weeks: None household members: none housing: house lives independently: Yes marital status: single education level: middle school service: No caffeine: No special fanny needs: No agree to transfusion: No do you feel safe at home: Yes victim of physical abuse: No victim of emotional abuse: No victim of sexual abuse: No would you like helpful sources: No Review of Systems Constitutional Constitutional: Reports weakness ENT Ears, Nose, Mouth, and Throat: Reports disequilibrium and Reports dizziness *Cardiovascular Cardiovascular: Reports dyspnea *Respiratory Respiratory: Reports dyspnea *Neurologic Neurologic: Reports as per HPI, Reports confusion, Denies convulsions, Reports disequilibrium, Reports dizziness and Reports weakness Psychiatric Psychiatric: Reports confusion Exam Data for Last 24 hours Vital signs and Labs for Last 24 Hours: Temp Pulse Resp BP Pulse Ox O2 Del Method O2 Flow Rate 99.5 F 65 20 124/65 94 L Nasal Cannula 2 12/08/23 12:00 12/08/23 12:00 12/08/23 12:00 12/08/23 12:00 12/08/23 12:00 12/08/23 12:00 12/08/23 12:00 Laboratory Results - last 24 hr 12/07/23 19:25: WBC 12.4 H, RBC 3.19 L, Hgb 7.7 L, Hct 26.7 L, MCV 83.5, MCH 24.1 L, MCHC 28.9 L, RDW 18.5 H, Plt Count 349, MPV 8.1, Neut % (Auto) 76.0, Lymph % (Auto) 16.0, [place] % (Auto) 7.3, Eos % (Auto) 0.5, Baso % (Auto) 0.2, Neut # (Auto) 9.4 H, Lymph # (Auto) 2.0, [place] # (Auto) 0.9, Eos # (Auto) 0.1, Baso # (Auto) 0.0, PT 11.1, INR 1.03, APTT 23.3, Sodium 138, Potassium 5.4 H, Chloride 108 H, Carbon Dioxide 23, Anion Gap 12.4, BUN 25 H, Creatinine 1.10 H, Estimated Creat Clear 24, Estimated GFR 48 L, Est GFR ( Amer) 58 L, Glucose 131 H, Lactate 3.9 H, Calcium 9.1, Total Bilirubin 0.6, AST 35, ALT 28, Alkaline Phosphatase 133 H, Troponin I 0.11 H, NT-Pro-B Natriuret Pep 5130 H, Total Protein 6.0 L, Albumin 3.4 L, Globulin 2.6, Albumin/Globulin Ratio 1.3, Procalcitonin 0.090 12/07/23 19:34: VBG pH 7.35, VBG pCO2 36.3, VBG pO2 36.0, VBG HCO3 19.4 L, VBG Total CO2 20.5 L, VBG O2 Saturation 63.5, VBG Base Excess -6.3 L, VBG Lactic Acid 4.6 H 12/07/23 20:10: Urine Color Yellow, Urine Appearance Clear, Urine pH 5.5, Ur Specific [place] 1.015, Urine Protein Negative, Urine Glucose (UA) Negative, Urine Ketones Negative, Urine Blood Negative, Urine Nitrate Negative, Urine Bilirubin Negative, Urine Urobilinogen 0.2, Ur Leukocyte Esterase Negative, Urine RBC None, Urine WBC None, Ur Squamous Epith Cells Occasional, Urine Bacteria Trace 12/07/23 20:36: Blood Type AB Negative, Antibody Screen Negative, Crossmatch (AHG) See Detail 12/08/23 02:43: Hgb 9.2 L D, Hct 30.4 L, Lactate 4.1 H, Troponin I 0.09 H 12/08/23 05:37: WBC 20.0 H D, RBC 3.52 L, Hgb 8.7 L, Hct 29.8 L, MCV 84.8, MCH 24.7 L, MCHC 29.1 L, RDW 18.6 H, Plt Count 312, MPV 8.8, Neut % (Auto) 90.5 H, Lymph % (Auto) 4.1 L, [place] % (Auto) 5.2, Eos % (Auto) 0.1, Baso % (Auto) 0.2, Neut # (Auto) 18.1 H, Lymph # (Auto) 0.8, [place] # (Auto) 1.0, Eos # (Auto) 0.0, Baso # (Auto) 0.0, Total Counted 100, Neutrophils % (Manual) 85 H, Lymphocytes % (Manual) 8 L, Monocytes % (Manual) 7, Platelet Estimate Normal, Hypochromasia 1+, Sodium 137, Potassium 4.8, Chloride 105, Carbon Dioxide 23, Anion Gap 13.8, BUN 29 H, Creatinine 1.00, Estimated Creat Clear 35, Estimated GFR 53 L, Est GFR ( Amer) 64, Glucose 158 H D, Lactate 4.1 H, Calcium 8.3 L, Total Bilirubin 0.9, AST 307 H* D, ALT 256 H D, Alkaline Phosphatase 206 H, Total Protein 5.2 L, Albumin 2.9 L D, Globulin 2.3, Albumin/Globulin Ratio 1.3 12/08/23 06:00: Troponin I 0.07 H I & O for Last 24 hours: Intake & Output 12/05/23 12/06/23 12/07/23 12/08/23 23:59 23:59 23:59 23:59 Intake Total 0 / 0 1751 / 1751 Output Total 375 / 375 Balance 0 / 0 1376 / 1376 Weight 110 lb 4 oz 110 lb 4 oz Constitutional Constitutional: thin and chronically ill appearing *Routine Respiratory Exam Respiratory: Present diminished air movement *Routine Cardiovascular Exam Comments: Chronic afib *Routine Extremities Exam Comments: chronic healing wounds noted to left anterior knee and left toes. Meds Home Medications and Allergies Home Medications Medication Instructions Recorded Confirmed Type gabapentin 100 mg capsule 100 mg PO HS 04/21/19 12/07/23 History atorvastatin 10 mg tablet 10 mg PO Q48H 05/05/19 12/07/23 History aspirin 81 mg tablet,delayed 81 mg PO DAILY 07/26/19 12/07/23 History release acetaminophen 650 mg 650 mg PO BID 11/13/20 12/07/23 History tablet,extended release buspirone 10 mg tablet 10 mg PO TID 11/13/20 12/07/23 History furosemide 20 mg tablet 20 mg PO DAILY 09/11/21 12/07/23 History diltiazem HCl 180 mg 180 mg PO DAILY 03/09/22 12/07/23 History capsule,extended release 24 hr, controlled potassium chloride 10 mEq 10 meq PO BID 02/26/23 12/07/23 History capsule,extended release clopidogrel 75 mg tablet 75 mg PO DAILY 07/17/23 12/07/23 History dicyclomine 20 mg tablet 20 mg PO QIDP PRN Stomach cramps 07/17/23 12/08/23 History fluticasone propionate 50 50 mcg intranasal BIDP PRN 07/17/23 12/07/23 History mcg/actuation nasal Allergic Symptoms spray,suspension (Flonase Allergy Relief) pantoprazole 40 mg tablet,delayed 40 mg PO DAILYP PRN Acid Reflux 11/06/23 12/07/23 History release spironolactone 25 mg tablet 25 mg PO DAILY 11/06/23 12/07/23 History tiotropium bromide 2.5 2 puff inhalation DAILY 11/06/23 12/07/23 History mcg/actuation mist for inhalation (Spiriva Respimat) metoprolol succinate 50 mg 100 mg PO DAILY 12/08/23 12/08/23 History tablet,extended release 24 hr New Prescriptions to Start Prescriptions: Allergies Allergy/AdvReac Type Severity Reaction Status Date / Time beef derived (bovine) Allergy Unknown Verified 10/02/23 13:38 allergy reaction lactose Allergy Unknown Verified 10/02/23 13:38 allergy reaction Penicillins Allergy Unknown Verified 10/02/23 13:38 allergy reaction Sulfa (Sulfonamide Allergy Verified 10/02/23 13:38 Antibiotics) Assessment and Plan *Assessment and plan (1) Acute anemia: Status: Acute Category: Medical Code(s): D64.9 - Anemia, unspecified (2) Septic shock: Status: Acute Category: Medical Code(s): A41.9 - Sepsis, unspecified organism; R65.21 - Severe sepsis with septic shock (3) Chronic a-fib: Status: Acute Category: Medical Code(s): I48.20 - Chronic atrial fibrillation, unspecified Plan Acute septic shock -wbc 20, elevated liver enzymes, lactic acid and alk phos, hypothermic and hypotensive on presentation -Source unknown- consider ischemic bowel or abdominal source given hx of abdominal pain and extensive PAD. Cannot get ct abd/pelvis due to patient's inability to lay flat -Does have a chronic wound to left knee currently undergoing debridement per Dr. Puente, no obvious signs of infection present -currently on cefipime and vanc -Will defer antibiotic selection and further management to primary service Acute anemia Hx of GI bleed previously requiring transfusion -Hgb down to 7.7 on admission, previously was 11 one month ago -No known source of bleed -Recommend obtaining hemoccult -Patient has a hx of GI bleed -Recommend surgery consult for concern for GI bleed -primary service has transfused one unit. Will defer further management to primary service Chronic afib s/p watchman's device Afib, bradycardia -Rate noted to be in the 40s-50s upon arrival. Glucagon was given and patient was started on epi drip -Rate currently 83, will wean from epi drip -Continue dilt History of HFpEF Mildly to moderate dilated RV with mild reduction of RV function Severe biatrial dilation Moderate TR Elevated RVSP greater than 50-55 -No signs of volume overload noted -Echocardiogram 11/2023, repeat limited today no change -Continue Lasix 20 mg daily. No aldactone due to hyperkalemia on admission. No Jardiance due to recent UTI Acute myocardial injury in the setting of acute illness History of coronary artery disease -Trop 0.11-0.07 -Ekg without new acute changes -Left heart cath 11/06/2023: Moderate obstructive disease without occluded vessels causing ST changes -Continue Plavix 75 mg daily. Statin on hold due to liver enzymes. 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 Severe right renal artery stenosis successful stent to the right renal artery with 1 bare-metal stent. Given concern for possible GI bleed, will continue plavix only and add PPI -Carotid artery stenosis-20 to 49% KALYAN, 20 to 49% LICA October 2020. Patient is status post right and left endarterectomy. -History of right subclavian stent in 2018 -History of celiac stenting 202112/08/2023 update: Will attempt to wean from epi drip. Repeat echocardiogram shows a normal ejection fraction. Will defer antibiotic selection, sepsis treatment and anemia treatment to primary service. Given patient's hx of a GI bleed, recommend surgery consult for further eval. Cards will continue plavix only at this time and add PPI. Cardiology will continue to monitor alongside primary service. Cardiac meds Plavix 75 mg daily Statin on hold due to elevated liver enzymes Continue diltiazem 180 mg daily Continue Lasix 20 mg daily Metoprolol succinate ER 100 mg p.o. daily-on hold due to recent bradycardia Aldactone on hold due to hyperkalemia Protonix 40mg po daily
--- NOTE | 2023-12-08 13:54 | HMH.PTWOUND ---
Rehab Inpt Wound Evaluation Rehab IP Wound Evaluation Start: 12/08/23 06:02 Freq: ONCE Status: Active Protocol: Document 12/08/23 13:38 VIOLA (Rec: 12/08/23 13:53 PHOPARUL [id number]) Rehab PT Wound Assessment Subjective Subjective 83 yowf adm to [facility] with septic shock. PMH of COPD on baseline 2 L nasal cannula, hypertension, hyperlipidemia, CAD, A-fib status post Watchman procedure, arterial disease status post stenting earlier in November. She presents with wound to her L anterior knee upon admission. Wound Left Anterior Knee Wound Type PAD Is This a Chronic Wound Yes Wound Length (cm) 4.0 Wound Width (cm) 3.7 Wound Depth (cm) 0.1 Wound Bed Appearance Yellow Percentage of Slough (%) 100 Wound Margins Description Well Defined Surrounding Tissue Appearance [place] Wound Drainage Description Serous Drainage Amount Small Wound Topical Solution/Irrigant Saline Irrigant Primary Dressing Composite Comment bordered foam Wound Debridement Method Gauze,Mechanical Wound Debridement Amount of Tissue Minimal Removed Dressing Change Patient Tolerance Tolerated Well Plan/Recommendation Comment Wound presents with complete wound bed slough and very tender to palpation. Will continue to follow for possible debridement if necessary, but current tenderness and pain would make that difficult. Current dressing is appropriate and should be changed once every 1 -2 days as needed. Eval Complexity Eval Charge Codes 61418 - High Complexity Fung-Ervin Wound Assessment Tool Assessment Wound size 2=Length x Width 4--<16 sq cm Wound depth 4=Obscured by necrosis Wound edges 3=Well-defined, not attached to wound base Wound undermining 1=None present Necrotic tissue type 3=Loosely adherent yellow slough Necrotic tissue amount 5=75% to 100% of wound covered Exudate type 4=Serous: thin, watery, clear Exudate amount 3=Small Skin color surrounding wound 1=[place] or normal for ethnic group Peripheral tissue edema 1=No swelling or edema Peripheral tissue induration 1=None present Granulation tissue 5=No granulation tissue present Epithelialization 5= < 25% wound covered Wound assessment total score 38 PHYSICIAN CERTIFICATION: I certify the specified therapy services for Suri Banks are required, authorized, and reviewed every 30 days.
[2023-12-08] MEDS: CLOPIDOGREL 75MG TAB 75 MG PO (16:36)
--- NOTE | 2023-12-08 17:56 | PC.NURSE ---
pt has appeared to rest well in her room this shift. she is noted to have periodically nap throughout the day. pt family has remained at bedside. pt is a/o x 4 but has issues noted with short term memory. pt epi drip was stopped at 1636. pt is tolerating this so far.
[2023-12-08] MEDS: IPRATROPIUM/ALBUTEROL 3 ML NEB IH ×2 (18:39→23:59)
--- NOTE | 2023-12-08 20:41 | PC.NURSE ---
DR. PERKINS PAGED BY THIS RN TO D/C PO PROTONIX AND START IV PROTONIX D/T PT HAVING TO CRUSH MEDS AT THIS TIME; NEW TELEPHONE ORDER FOR IV PROTONIX RECEIVED
[2023-12-08] MEDS: PANTOPRAZOLE 40MG VIAL 40 MG IV (22:14)
[2023-12-09] VITALS (13 sets, daily range): BP systolic 84–111; BP diastolic 49–61; PULSE 76–132; RESP 13–22; TEMP 36.9–37.3; O2SAT 90–100; BMI 19.4
[2023-12-09] MEDS: 0.9 % SODIUM CHLORIDE 1000ML 1,000 ML 100 ML IV (02:49)
[2023-12-09] MEDS: CLOPIDOGREL 75MG TAB 75 MG PO (08:19)
[2023-12-09] MEDS: VANCOMYCIN HCL 750 MG in 0.9 % SODIUM CHLORIDE 250 ML 125 MG IV (08:19)
[2023-12-09] MEDS: FUROSEMIDE 20MG TABLET 20 MG PO (08:19)
[2023-12-09 08:56] LABS: Basophils % 0.2 % (0.1-2.0); Eosinophils # 0.1 K/mm3 (0.0-0.4); Eosinophils % 0.6 % (0.1-12.0); Hematocrit 28.7 % (37.0-47.0); Hemoglobin 8.5 g/dL (12.2-16.2); Lymphocytes # 1.1 K/mm3 (0.7-4.5); Lymphocytes % 10.2 % (10-50); Mean Corpuscular HGB Conc 29.5 g/dL (31.8-35.4); Mean Corpuscular Hemoglobin 25.3 pg (27.0-31.2); Mean Corpuscular Volume 85.5 fl (81-99); Mean Platelet Volume 8.2 fl (7.4-10.4); Monocytes # 0.7 K/mm3 (0.1-1.0); Monocytes % 6.5 % (1.7-9.3); Neutrophils # 8.6 K/mm3 (1.8-7.8); Neutrophils % 82.4 % (37.0-80.0); Platelet Count 248 K/mm3 (142-424); Red Blood Count 3.35 M/mm3 (4.20-5.40); Red Cell Distribution Width 18.9 % (11.5-17.5); White Blood Count 10.4 K/mm3 (4.8-10.8)
--- NOTE | 2023-12-09 08:56 | P.PN_ITS ---
Subjective *Date: 12/09/23 *Time: 08:56 Interval history: She is stable. Epinephrine was discontinued yesterday. She is actually tachycardic this morning. Diltiazem has been reinitiated. She is also receiving clopidogrel. She is hungry and wants her diet advanced. She asked for her Domingo catheter to be removed. She has not been up in a chair and I would recommend that she be up today. Medical Exam Vital signs and Labs for Last 24 Hours: Vital Signs Temp Pulse Pulse Resp BP Pulse Ox O2 Del Method 12/09/23 07:00 Nasal Cannula 12/09/23 06:00 110 H 18 111/56 L 94 L Nasal Cannula 12/09/23 05:00 Nasal Cannula 12/09/23 05:00 111 H 18 99/49 L 96 Nasal Cannula 12/09/23 04:00 Nasal Cannula 12/09/23 04:00 98.8 F 104 H 15 96/55 L 100 Nasal Cannula 12/09/23 03:00 Nasal Cannula 12/09/23 03:00 100 H 15 96/59 L 100 Nasal Cannula 12/09/23 02:00 99 H 15 104/54 L 100 Nasal Cannula 12/09/23 01:00 92 H 14 101/54 L 100 Nasal Cannula 12/09/23 01:00 Nasal Cannula 12/09/23 00:00 90 12/09/23 00:00 Nasal Cannula 12/09/23 00:00 99 F 91 H 13 84/52 L 92 L Nasal Cannula 12/08/23 23:59 93 H 12/08/23 23:00 Nasal Cannula 12/08/23 23:00 95 H 16 107/55 L 100 Nasal Cannula 12/08/23 22:00 90 14 108/59 L 97 Nasal Cannula 12/08/23 21:00 Nasal Cannula 12/08/23 21:00 83 15 107/58 L 100 Nasal Cannula 12/08/23 20:00 Nasal Cannula 12/08/23 20:00 98.6 F 91 H 15 105/53 L 100 Non-Rebreather 12/08/23 20:00 84 12/08/23 19:00 Nasal Cannula 12/08/23 19:00 72 18 106/54 L 94 L Nasal Cannula 12/08/23 18:40 87 12/08/23 18:00 81 18 99/59 L 100 Nasal Cannula 12/08/23 17:40 Nasal Cannula 12/08/23 17:30 99.5 F 89 18 105/60 L 100 Nasal Cannula 12/08/23 17:06 99.5 F 12/08/23 17:00 79 18 96/53 L 100 Nasal Cannula 12/08/23 16:00 87 100 Nasal Cannula 12/08/23 16:00 88 20 90/42 L 96 Nasal Cannula 12/08/23 16:00 90 12/08/23 15:38 Nasal Cannula 12/08/23 15:30 88 15 97/39 L 91 L Nasal Cannula 12/08/23 15:00 81 18 114/50 L 100 Nasal Cannula 12/08/23 14:00 88 18 122/59 L 98 Nasal Cannula 12/08/23 13:35 Nasal Cannula 12/08/23 13:00 99.7 F H 83 19 132/62 100 Nasal Cannula 12/08/23 12:00 80 12/08/23 12:00 65 20 124/65 94 L Nasal Cannula 12/08/23 12:00 75 95 Nasal Cannula 12/08/23 12:00 99.5 F 12/08/23 11:00 73 20 132/98 H 98 Nasal Cannula 12/08/23 11:00 Nasal Cannula 12/08/23 10:00 78 20 111/63 91 L Nasal Cannula 12/08/23 09:00 60 20 122/60 100 Nasal Cannula 12/08/23 08:59 Nasal Cannula O2 Flow Rate 12/09/23 07:00 12/09/23 06:00 4 12/09/23 05:00 12/09/23 05:00 4 12/09/23 04:00 4 12/09/23 04:00 4 12/09/23 03:00 12/09/23 03:00 4 12/09/23 02:00 4 12/09/23 01:00 4 12/09/23 01:00 12/09/23 00:00 12/09/23 00:00 3 12/09/23 00:00 2 12/08/23 23:59 12/08/23 23:00 12/08/23 23:00 2 12/08/23 22:00 2 12/08/23 21:00 12/08/23 21:00 2 12/08/23 20:00 3 12/08/23 20:00 2 12/08/23 20:00 12/08/23 19:00 2 12/08/23 19:00 3 12/08/23 18:40 12/08/23 18:00 3 12/08/23 17:40 2 12/08/23 17:30 2 12/08/23 17:06 12/08/23 17:00 2 12/08/23 16:00 3 12/08/23 16:00 2 12/08/23 16:00 12/08/23 15:38 12/08/23 15:30 2 12/08/23 15:00 2 12/08/23 14:00 2 12/08/23 13:35 2 12/08/23 13:00 2 12/08/23 12:00 12/08/23 12:00 2 12/08/23 12:00 2 12/08/23 12:00 12/08/23 11:00 2 12/08/23 11:00 2 12/08/23 10:00 2 12/08/23 09:00 2 12/08/23 08:59 2 Intake and Output 12/08/23 12/09/23 12/09/23 19:59 03:59 11:59 Intake Total 1064.093 / 2330.093 1266 / 2330.093 Output Total 935 / 2435 0 / 2435 1500 / 2435 Balance 129.093 / -104.907 0 / -104.907 -234 / -104.907 Intake: Intake, Oral Amount 120 / 120 Intake, Total IV Amount 944.093 / 2210.093 1266 / 2210.093 0.9 % Sodium Chloride 1000ML 1, 595 / 1861 1266 / 1861 000 ml @ 100 mls/hr IV .Q10H OLIVIA Rx#:[id number] Vancomycin HCl 750 mg In 0.9 % 250 / 250 Sodium Chloride 250 ml @ 125 mls/hr IV Q24H OLIVIA Rx#:[id number] Output: Output, Urine Amount 935 / 2435 0 / 2435 1500 / 2435 Other: Number of Unmeasured Voids 0 0 0 Weight 113 lb 12.8 oz Patient Weight 12/09/23 11:59 Weight 113 lb 12.8 oz I & O for Labs for Last 24 Hours: Intake & Output 12/06/23 12/07/23 12/08/23 12/09/23 11:59 11:59 11:59 11:59 Intake Total 1751 / 1751 2330.093 / 2330.093 Output Total 375 / 375 2435 / 2435 Balance 1376 / 1376 -104.907 / -104.907 Weight 110 lb 4 oz 113 lb 12.8 oz Head: Present normocephalic Neck: Present normal inspection Respiratory: Present decreased breath sounds and CTA bilaterally Cardiac: Absent Reg Rate and Rhythm GI: Present soft; Absent tenderness Rectal (female): Present deferred (female): Present deferred Extremities: Absent edema Comment:: Toes are improved. Dressing on the left knee is in place. Neuro: Present alert and oriented x 3 Comment:: She wants to go outside to smoke. Assessment and Plan *Assessment and plan (1) Chronic a-fib: Status: Acute Category: Medical Code(s): I48.20 - Chronic atrial fibrillation, unspecified (2) Acute anemia: Status: Acute Category: Medical Code(s): D64.9 - Anemia, unspecified (3) Peripheral arterial disease: Status: Acute Category: Medical Code(s): I73.9 - Peripheral vascular disease, unspecified (4) Leg wound, left: Status: Acute Category: Medical Code(s): S81.802A - Unspecified open wound, left lower leg, initial encounter (5) Smoking greater than 30 pack years: Status: Acute Category: Social Hx Code(s): F17.210 - Nicotine dependence, cigarettes, uncomplicated (6) COPD mixed type: Status: Acute Category: Medical Code(s): J44.9 - Chronic obstructive pulmonary disease, unspecified (7) Anxiety: Status: Acute Category: Medical Code(s): F41.9 - Anxiety disorder, unspecified (8) Presence of Watchman left atrial appendage closure device: Status: Chronic Category: Medical Code(s): Z95.818 - Presence of other cardiac implants and grafts (9) Arteriosclerotic cardiovascular disease: Status: Chronic Category: Medical Code(s): I25.10 - Atherosclerotic heart disease of [place] coronary artery without angina pectoris (10) Hypertension: Status: Chronic Qualifiers: Hypertension type: essential hypertension Qualified Code(s): I10 - Essential (primary) hypertension Category: Medical Code(s): I10 - Essential (primary) hypertension (11) Tobacco abuse: Status: Chronic Category: Medical Code(s): Z72.0 - Tobacco use Plan FELA Domingo. Diet as tolerated. Up in chair.
[2023-12-09 09:05] LABS: Alanine Aminotransferase 161 U/L (12-78); Albumin Level 2.7 g/dl (3.5-5.0); Albumin/Globulin Ratio 1.2 (1.1-1.8); Alkaline Phosphatase 180 U/L (38-126); Anion Gap 8.5 mEq/L (5-15); Aspartate Amino Transferase 73 U/L (14-36); Bilirubin,Total 0.6 mg/dl (0.2-1.3); Blood Urea Nitrogen 21 mg/dl (7-17); Calcium 8.1 mg/dl (8.4-10.2); Carbon Dioxide 24 mmol/L (22.0-30.0); Chloride 108 mmol/L (98-107); Creatinine Clearance Estimated 36 mL/min (50-200); Estimated Glomerular Filt Rate 69 ml/min (>60); GFR (African American) 83 ML/MIN (>60); Globulin 2.2 g/dL (1.3-3.2); Glucose 89 mg/dl (74-100); Potassium 4.5 mmoL/L (3.5-5.1); Sodium 136 mmol/L (136-145); Total Protein,Serum 4.9 g/dl (6.3-8.2)
--- NOTE | 2023-12-09 09:49 | P.PN_ITS ---
Subjective Subjective Date: 12/09/23 Time: 08:00 Principal diagnosis: septic shock, anemia Interval history: Patient doing better this morning. Morning labs reviewed. Family is at bedside. Exam Data for Last 24 hours Vital signs and Labs for Last 24 Hours: Temp Pulse Resp BP Pulse Ox O2 Del Method O2 Flow Rate 98.8 F 110 H 18 111/56 L 94 L Nasal Cannula 4 12/09/23 04:00 12/09/23 06:00 12/09/23 06:00 12/09/23 06:00 12/09/23 06:00 12/09/23 07:00 12/09/23 06:00 Laboratory Results - last 24 hr 12/09/23 08:40: WBC 10.4 D, RBC 3.35 L, Hgb 8.5 L, Hct 28.7 L, MCV 85.5, MCH 25.3 L, MCHC 29.5 L, RDW 18.9 H, Plt Count 248, MPV 8.2, Neut % (Auto) 82.4 H, Lymph % (Auto) 10.2, [place] % (Auto) 6.5, Eos % (Auto) 0.6, Baso % (Auto) 0.2, Neut # (Auto) 8.6 H, Lymph # (Auto) 1.1, [place] # (Auto) 0.7, Eos # (Auto) 0.1, Baso # (Auto) 0.0, Sodium 136, Potassium 4.5, Chloride 108 H, Carbon Dioxide 24, Anion Gap 8.5, BUN 21 H D, Creatinine 0.80, Estimated Creat Clear 36, Estimated GFR 69, Est GFR ( Amer) 83 D, Glucose 89, Calcium 8.1 L, Total Bilirubin 0.6, AST 73 H D, ALT 161 H D, Alkaline Phosphatase 180 H, Total Protein 4.9 L, Albumin 2.7 L, Globulin 2.2, Albumin/Globulin Ratio 1.2 Temp Pulse Resp BP Pulse Ox O2 Del Method O2 Flow Rate 99.5 F 65 20 124/65 94 L Nasal Cannula 2 12/08/23 12:00 12/08/23 12:00 12/08/23 12:00 12/08/23 12:00 12/08/23 12:00 12/08/23 12:00 12/08/23 12:00 Laboratory Results - last 24 hr 12/07/23 19:25: WBC 12.4 H, RBC 3.19 L, Hgb 7.7 L, Hct 26.7 L, MCV 83.5, MCH 24.1 L, MCHC 28.9 L, RDW 18.5 H, Plt Count 349, MPV 8.1, Neut % (Auto) 76.0, Lymph % (Auto) 16.0, [place] % (Auto) 7.3, Eos % (Auto) 0.5, Baso % (Auto) 0.2, Neut # (Auto) 9.4 H, Lymph # (Auto) 2.0, [place] # (Auto) 0.9, Eos # (Auto) 0.1, Baso # (Auto) 0.0, PT 11.1, INR 1.03, APTT 23.3, Sodium 138, Potassium 5.4 H, Chloride 108 H, Carbon Dioxide 23, Anion Gap 12.4, BUN 25 H, Creatinine 1.10 H, Estimated Creat Clear 24, Estimated GFR 48 L, Est GFR ( Amer) 58 L, Glucose 131 H, Lactate 3.9 H, Calcium 9.1, Total Bilirubin 0.6, AST 35, ALT 28, Alkaline Phosphatase 133 H, Troponin I 0.11 H, NT-Pro-B Natriuret Pep 5130 H, Total Protein 6.0 L, Albumin 3.4 L, Globulin 2.6, Albumin/Globulin Ratio 1.3, Procalcitonin 0.090 12/07/23 19:34: VBG pH 7.35, VBG pCO2 36.3, VBG pO2 36.0, VBG HCO3 19.4 L, VBG Total CO2 20.5 L, VBG O2 Saturation 63.5, VBG Base Excess -6.3 L, VBG Lactic Acid 4.6 H 12/07/23 20:10: Urine Color Yellow, Urine Appearance Clear, Urine pH 5.5, Ur Specific [place] 1.015, Urine Protein Negative, Urine Glucose (UA) Negative, Urine Ketones Negative, Urine Blood Negative, Urine Nitrate Negative, Urine Bilirubin Negative, Urine Urobilinogen 0.2, Ur Leukocyte Esterase Negative, Urine RBC None, Urine WBC None, Ur Squamous Epith Cells Occasional, Urine Bacteria Trace 12/07/23 20:36: Blood Type AB Negative, Antibody Screen Negative, Crossmatch (AHG) See Detail 12/08/23 02:43: Hgb 9.2 L D, Hct 30.4 L, Lactate 4.1 H, Troponin I 0.09 H 12/08/23 05:37: WBC 20.0 H D, RBC 3.52 L, Hgb 8.7 L, Hct 29.8 L, MCV 84.8, MCH 24.7 L, MCHC 29.1 L, RDW 18.6 H, Plt Count 312, MPV 8.8, Neut % (Auto) 90.5 H, Lymph % (Auto) 4.[address] L, [place] % (Auto) 5.2, Eos % (Auto) 0.1, Baso % (Auto) 0.2, Neut # (Auto) 18.1 H, Lymph # (Auto) 0.8, [place] # (Auto) 1.0, Eos # (Auto) 0.0, Baso # (Auto) 0.0, Total Counted 100, Neutrophils % (Manual) 85 H, Lymphocytes % (Manual) 8 L, Monocytes % (Manual) 7, Platelet Estimate Normal, Hypochromasia 1+, Sodium 137, Potassium 4.8, Chloride 105, Carbon Dioxide 23, Anion Gap 13.8, BUN 29 H, Creatinine 1.00, Estimated Creat Clear 35, Estimated GFR 53 L, Est GFR ( Amer) 64, Glucose 158 H D, Lactate 4.1 H, Calcium 8.3 L, Total Bilirubin 0.9, AST 307 H* D, ALT 256 H D, Alkaline Phosphatase 206 H, Total Protein 5.2 L, Albumin 2.9 L D, Globulin 2.3, Albumin/Globulin Ratio 1.3 12/08/23 06:00: Troponin I 0.07 H I & O for Last 24 hours: Intake & Output 12/06/23 12/07/23 12/08/23 12/09/23 23:59 23:59 23:59 23:59 Intake Total 0 / 0 2815.093 / 2815.093 1266 / 1266 Output Total 1310 / 1310 1500 / 1500 Balance 0 / 0 1505.093 / 1505.093 -234 / -234 Weight 110 lb 4 oz 110 lb 4 oz 113 lb 12.8 oz Intake & Output 12/05/23 12/06/23 12/07/2324 23:59 23:59 23:59 23:59 Intake Total 0 / 0 1751 / 1751 Output Total 375 / 375 Balance 0 / 0 1376 / 1376 Weight 110 lb 4 oz 110 lb 4 oz Constitutional Constitutional: thin and chronically ill appearing *Routine Respiratory Exam Respiratory: Present diminished air movement *Routine Cardiovascular Exam Comments: Chronic afib *Routine Extremities Exam Comments: chronic healing wounds noted to left anterior knee and left toes. Progress Note: A&P Assessment and plan (1) Chronic a-fib: Status: Acute (2) Acute anemia: Status: Acute (3) Peripheral arterial disease: Status: Acute (4) Leg wound, left: Status: Acute (5) Smoking greater than 30 pack years: Status: Acute (6) COPD mixed type: Status: Acute (7) Anxiety: Status: Acute (8) Presence of Watchman left atrial appendage closure device: Status: Chronic (9) Arteriosclerotic cardiovascular disease: Status: Chronic (10) Hypertension: Status: Chronic (11) Tobacco abuse: Status: Chronic Assessment and Plan Assessment and Plan for All Diagnoses:: Acute septic shock -wbc 20, elevated liver enzymes, lactic acid and alk phos, hypothermic and hypotensive on presentation -Source unknown- consider ischemic bowel or abdominal source given hx of abdominal pain and extensive PAD. Cannot get ct abd/pelvis due to patient's inability to lay flat -Does have a chronic wound to left knee currently undergoing debridement per Dr. Puente, no obvious signs of infection present -currently on cefipime and vanc -Will defer antibiotic selection and further management to primary service Acute anemia Hx of GI bleed previously requiring transfusion -Hgb down to 7.7 on admission, previously was 11 one month ago -No known source of bleed -Recommend obtaining hemoccult -Patient has a hx of GI bleed -Recommend surgery consult for concern for GI bleed -primary service has transfused one unit. Will defer further management to primary service 12/09/2023 update: Post transfusion hemoglobin was 9.2 has decreased to 8.5 today. Chronic afib s/p watchman's device Afib, bradycardia -Rate noted to be in the 40s-50s upon arrival. Glucagon was given and patient was started on epi drip -Wean from epi drip yesterday -Patient is A-fib RVR today at a rate of 110, diltiazem will be resumed History of HFpEF Mildly to moderate dilated RV with mild reduction of RV function Severe biatrial dilation Moderate TR Elevated RVSP greater than 50-55 -No signs of volume overload noted -Echocardiogram 11/2023, repeat limited today no change -Continue Lasix 20 mg daily. No aldactone due to hyperkalemia on admission. No Jardiance due to recent UTI Acute myocardial injury in the setting of acute illness History of coronary artery disease -Trop 0.11-0.07 -Ekg without new acute changes -Left heart cath 11/06/2023: Moderate obstructive disease without occluded vessels causing ST changes -Continue Plavix 75 mg daily. Statin on hold due to liver enzymes. 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 Severe right renal artery stenosis successful stent to the right renal artery with 1 bare-metal stent. Given concern for possible GI bleed, will continue plavix only and add PPI -Carotid artery stenosis-20 to 49% KALYAN, 20 to 49% LICA October 2020. Patient is status post right and left endarterectomy. -History of right subclavian stent in 2019 -History of celiac stenting 202112/09/2023 update: Patient was weaned from epi drip yesterday. Today patient is A-fib RVR with a rate of 110 will resume home diltiazem. Cardiac meds Plavix 75 mg daily Statin on hold due to elevated liver enzymes Continue diltiazem 180 mg daily Continue Lasix 20 mg daily Metoprolol succinate ER 100 mg p.o. daily-on hold due to recent bradycardia Aldactone on hold due to hyperkalemia Protonix 40mg po daily
[2023-12-09] MEDS: dilTIAZem 30MG TABLET 45 MG PO ×3 (10:20→22:00)
[2023-12-09] MEDS: IPRATROPIUM/ALBUTEROL 3 ML NEB IH ×2 (12:42→18:51)
[2023-12-09] MEDS: 0.9 % SODIUM CHLORIDE 1000ML 1,000 ML 50 ML IV (15:10)
[2023-12-09] MEDS: CEFEPIME HCL 2 GM in 0.9 % SODIUM CHLORIDE 100 ML IV ×2 (15:25→22:00)
--- NOTE | 2023-12-09 17:32 | PC.NURSE ---
Domingo catheter removed, patient able to void on bedside commode. VS stable and pt weaned to room air but requesting 2LNC oxygen when she is anxious. Heart rate responding to po diltiazem, hr 80-90's. Lung sounds clear. IV antibiotics given.
[2023-12-09] MEDS: PANTOPRAZOLE 40MG VIAL 40 MG IV (21:54)
[2023-12-10] VITALS (10 sets, daily range): BP systolic 94–125; BP diastolic 50–70; PULSE 79–120; RESP 16–36; TEMP 36.6–37.3; O2SAT 94–100; BMI 18.4; BMI 18.3
[2023-12-10] MEDS: IPRATROPIUM/ALBUTEROL 3 ML NEB IH ×4 (00:30→18:54)
[2023-12-10] MEDS: dilTIAZem 30MG TABLET 45 MG PO (06:35)
[2023-12-10] MEDS: PHA TO NURSING INSTRUCTION 1 EACH NOTAPPLIC (07:00)
[2023-12-10 07:45] LABS: Anion Gap 9.8 mEq/L (5-15); Blood Urea Nitrogen 13 mg/dl (7-17); Calcium 8.2 mg/dl (8.4-10.2); Carbon Dioxide 24 mmol/L (22.0-30.0); Chloride 106 mmol/L (98-107); Creatinine Clearance Estimated 34 mL/min (50-200); Estimated Glomerular Filt Rate 80 ml/min (>60); GFR (African American) 97 ML/MIN (>60); Glucose 91 mg/dl (74-100); Potassium 3.8 mmoL/L (3.5-5.1); Sodium 136 mmol/L (136-145)
[2023-12-10] MEDS: CLOPIDOGREL 75MG TAB 75 MG PO (08:37)
[2023-12-10] MEDS: FUROSEMIDE 20MG TABLET 20 MG PO ×2 (08:37→10:30)
[2023-12-10] MEDS: VANCOMYCIN HCL 750 MG in 0.9 % SODIUM CHLORIDE 250 ML 125 MG IV (08:56)
--- NOTE | 2023-12-10 09:08 | EXP.ACUTE.PN ---
Subjective *Date: 12/10/23 *Time: 09:20 Interval history: Patient states she feels SOA this am. Her daugther states she always wakes up SOA and with deep breathing it seems to improve. She does have some swelling in her left foot today. She denies any pain. She slept off and on. Medical Exam Vital signs and Labs for Last 24 Hours: Vital Signs Temp Pulse Pulse Resp BP Pulse Ox O2 Del Method 12/10/23 08:00 98.5 F 99 H 25 H 113/52 L 99 Nasal Cannula 12/10/23 06:20 98 H 12/10/23 06:20 105 H 12/10/23 06:20 98 Nasal Cannula 12/10/23 04:00 90 12/10/23 00:30 79 12/10/23 00:00 81 12/10/23 00:00 99.1 F 80 16 94/50 L 99 Nasal Cannula 12/09/23 20:00 92 H 12/09/23 20:00 76 99 Nasal Cannula 12/09/23 20:00 99.1 F 87 22 92/50 L 99 Nasal Cannula 12/09/23 18:53 90 12/09/23 18:38 Room Air 12/09/23 17:00 Room Air 12/09/23 16:00 80 12/09/23 16:00 99.0 F 107 H 18 100/51 L 99 Nasal Cannula 12/09/23 15:00 Nasal Cannula 12/09/23 13:00 Room Air 12/09/23 12:43 114 H 12/09/23 12:43 107 H 12/09/23 12:43 90 L Nasal Cannula 12/09/23 12:00 120 H 12/09/23 12:00 98.4 F 100 H 18 100/50 L 100 Nasal Cannula 12/09/23 11:05 Room Air O2 Flow Rate 12/10/23 08:00 2 12/10/23 06:20 12/10/23 06:20 12/10/23 06:20 2.5 12/10/23 04:00 12/10/23 00:30 12/10/23 00:00 12/10/23 00:00 2 12/09/23 20:00 12/09/23 20:00 2 12/09/23 20:00 2.5 12/09/23 18:53 12/09/23 18:38 12/09/23 17:00 12/09/23 16:00 12/09/23 16:00 12/09/23 15:00 2 12/09/23 13:00 12/09/23 12:43 12/09/23 12:43 12/09/23 12:43 2.5 12/09/23 12:00 12/09/23 12:00 12/09/23 11:05 Intake and Output 12/09/23 12/10/23 12/10/23 19:59 03:59 11:59 Intake Total 1130 / 1400 270 / 1400 Output Total 600 / 1300 400 / 1300 300 / 1300 Balance 530 / 100 -400 / 100 -30 / 100 Intake: Intake, Oral Amount 240 / 510 270 / 510 Intake, Total IV Amount 890 / 890 0.9 % Sodium Chloride 1000ML 1, 640 / 640 000 ml @ 50 mls/hr IV .Q20H OLIVIA Rx#:[id number] Vancomycin HCl 750 mg In 0.9 % 250 / 250 Sodium Chloride 250 ml @ 125 mls/hr IV Q24H OLIVIA Rx#:[id number] Output: Output, Urine Amount 600 / 1300 400 / 1300 300 / 1300 Other: Number of Unmeasured Voids 0 0 1 Weight 107 lb 12.897 oz Patient Weight 12/10/23 11:59 Weight 107 lb 12.897 oz Laboratory Results - last 24 hr 12/07/23 20:36: Crossmatch (AHG) See Detail 12/09/23 08:40: Sodium 136, Potassium 4.5, Chloride 108 H, Carbon Dioxide 24, Anion Gap 8.5, BUN 21 H D, Creatinine 0.80, Estimated Creat Clear 36, Estimated GFR 69, Est GFR ( Amer) 83 D, Glucose 89, Calcium 8.1 L, Total Bilirubin 0.6, AST 73 H D, ALT 161 H D, Alkaline Phosphatase 180 H, Total Protein 4.9 L, Albumin 2.7 L, Globulin 2.2, Albumin/Globulin Ratio 1.2 12/10/23 07:20: Sodium 136, Potassium 3.8, Chloride 106, Carbon Dioxide 24, Anion Gap 9.8, BUN 13 D, Creatinine 0.70, Estimated Creat Clear 34, Estimated GFR 80, Est GFR ( Amer) 97, Glucose 91, Calcium 8.2 L, Vancomycin Trough 7.0 I & O for Labs for Last 24 Hours: Intake & Output 12/07/23 12/08/23 12/09/23 12/10/23 11:59 11:59 11:59 11:59 Intake Total 1751 / 1751 2570.093 / 2570.093 1400 / 1400 Output Total 375 / 375 3070 / 3070 1300 / 1300 Balance 1376 / 1376 -499.907 / -499.907 100 / 100 Weight 110 lb 4 oz 113 lb 12.8 oz 107 lb 12.897 oz Constitutional: Present no acute distress Head: Present normocephalic Neck: Present normal inspection Respiratory: Present decreased breath sounds and CTA bilaterally Cardiac: Present Reg Rate and Rhythm GI: Present soft; Absent tenderness Extremities: Present edema (trace in left ankle) Comment:: Toes are improved. Dressing on the left knee is in place. Skin: Present intact Neuro: Present alert and oriented x 3 Comment:: She wants to go outside to smoke. Assessment and Plan *Assessment and plan (1) Septic shock: Status: Acute Category: Medical Code(s): A41.9 - Sepsis, unspecified organism; R65.21 - Severe sepsis with septic shock (2) Acute anemia: Status: Acute Category: Medical Code(s): D64.9 - Anemia, unspecified (3) Chronic a-fib: Status: Acute Category: Medical Code(s): I48.20 - Chronic atrial fibrillation, unspecified (4) Peripheral arterial disease: Status: Acute Category: Medical Code(s): I73.9 - Peripheral vascular disease, unspecified (5) Leg wound, left: Status: Acute Category: Medical Code(s): S81.802A - Unspecified open wound, left lower leg, initial encounter (6) Smoking greater than 30 pack years: Status: Acute Category: Social Hx Code(s): F17.210 - Nicotine dependence, cigarettes, uncomplicated (7) COPD mixed type: Status: Acute Category: Medical Code(s): J44.9 - Chronic obstructive pulmonary disease, unspecified (8) Anxiety: Status: Acute Category: Medical Code(s): F41.9 - Anxiety disorder, unspecified (9) Presence of Watchman left atrial appendage closure device: Status: Chronic Category: Medical Code(s): Z95.818 - Presence of other cardiac implants and grafts (10) Arteriosclerotic cardiovascular disease: Status: Chronic Category: Medical Code(s): I25.10 - Atherosclerotic heart disease of [place] coronary artery without angina pectoris (11) Hypertension: Status: Chronic Qualifiers: Hypertension type: essential hypertension Qualified Code(s): I10 - Essential (primary) hypertension Category: Medical Code(s): I10 - Essential (primary) hypertension (12) Tobacco abuse: Status: Chronic Category: Medical Code(s): Z72.0 - Tobacco use Plan WBC is normal today. Will continue antibiotics. Patient was weaned from epi drip and was in A-fib RVR with a rate of 110, therefore cardiology resumed home diltiazem. HR has slowed today. Cardiology to follow. Encouraged to get up in a chair. H&H is stable. Will check a stool for blood. Dr. Callahan entry - Saw patient, agree with above note.
--- NOTE | 2023-12-10 09:25 | EXP.PHA.CONS ---
Pharmacy Consult Date: 12/10/23 Time: 09:25 Referring provider: DR. PAGAN Reason for Consult:: VANCOMYCIN LEVEL Allergies Allergy/AdvReac Type Severity Reaction Status Date / Time beef derived (bovine) Allergy Unknown Verified 10/02/23 13:38 allergy reaction lactose Allergy Unknown Verified 10/02/23 13:38 allergy reaction Penicillins Allergy Unknown Verified 10/02/23 13:38 allergy reaction Sulfa (Sulfonamide Allergy Verified 10/02/23 13:38 Antibiotics) Home Medications Medication Instructions Recorded Confirmed Type gabapentin 100 mg capsule 100 mg PO HS 04/21/19 12/07/23 History atorvastatin 10 mg tablet 10 mg PO Q48H 05/05/19 12/07/23 History aspirin 81 mg tablet,delayed 81 mg PO DAILY 07/26/19 12/07/23 History release acetaminophen 650 mg 650 mg PO BID 11/13/20 12/07/23 History tablet,extended release buspirone 10 mg tablet 10 mg PO TID 11/13/20 12/07/23 History furosemide 20 mg tablet 20 mg PO DAILY 09/11/21 12/07/23 History diltiazem HCl 180 mg 180 mg PO DAILY 03/09/22 12/07/23 History capsule,extended release 24 hr, controlled potassium chloride 10 mEq 10 meq PO BID 02/26/23 12/07/23 History capsule,extended release clopidogrel 75 mg tablet 75 mg PO DAILY 07/17/23 12/07/23 History dicyclomine 20 mg tablet 20 mg PO QIDP PRN Stomach cramps 07/17/23 12/08/23 History fluticasone propionate 50 50 mcg intranasal BIDP PRN 07/17/23 12/07/23 History mcg/actuation nasal Allergic Symptoms spray,suspension (Flonase Allergy Relief) pantoprazole 40 mg tablet,delayed 40 mg PO DAILYP PRN Acid Reflux 11/06/23 12/07/23 History release spironolactone 25 mg tablet 25 mg PO DAILY 11/06/23 12/07/23 History tiotropium bromide 2.5 2 puff inhalation DAILY 11/06/23 12/07/23 History mcg/actuation mist for inhalation (Spiriva Respimat) metoprolol succinate 50 mg 100 mg PO DAILY 12/08/23 12/08/23 History tablet,extended release 24 hr New Prescriptions to Start Prescriptions: Height: 1.63 m Weight: 48.9 kg Laboratory Results:: Laboratory Results - last 24 hr 12/07/23 20:36: Crossmatch (AHG) See Detail 12/10/23 07:20: Sodium 136, Potassium 3.8, Chloride 106, Carbon Dioxide 24, Anion Gap 9.8, BUN 13 D, Creatinine 0.70, Estimated Creat Clear 34, Estimated GFR 80, Est GFR ( Amer) 97, Glucose 91, Calcium 8.2 L, Vancomycin Trough 7.0 Medical History: Medical History (Updated 12/08/23 @ 14:51 by Celeste Norwood APRN) Abnormal EKG Urinary retention Acute UTI Periorbital ecchymosis of left eye Atrial fibrillation Renal artery stenosis Abnormal ankle brachial index (ZORA) Peripheral arterial disease Smoking greater than 30 pack years COPD mixed type Pleural effusion Syncope Hypokalemia COPD exacerbation Fall at home Pulmonary edema Adverse effect of antiplatelet agent Acute lower gastrointestinal bleeding Ischemic bowel disease Diarrhea Epigastric pain Chest pain Gastroesophageal reflux disease Presence of Watchman left atrial appendage closure device Angina, class II Aortic insufficiency Elevated troponin TIA (transient ischemic attack) Rapid atrial fibrillation Atrial fibrillation with RVR Anxiety Dyspnea Bilateral carotid artery stenosis Stress reaction Palpitations Blood loss anemia Abdominal pain Apical variant hypertrophic cardiomyopathy Burning with urination 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 Paroxysmal atrial fibrillation CAD (coronary artery disease) New onset a-fib Carotid artery stenosis Pulmonary HTN Diastolic dysfunction Subclavian artery stenosis, right Hyperlipidemia Hypertension NSTEMI (non-ST elevated myocardial infarction) Anxiety disorder Tobacco abuse Arteriosclerotic cardiovascular disease Assessment and Plan Assessment and plan all Dx Assessment and Plan for all problems:: Pharmacokinetic dosing service Vancomycin single level analysis: Current dose being given: 750 mg Current dosing interval: 24 hrs Current infusion time (hrs): 2 Single level Trough Data: Trough level obtained: 7.0 mcg/ml Timing of trough - # of hrs before next dose: 1 Hrs Desired peak: 35 mcg/ml Desired trough: 15 mcg/ml Estimated PK Parameters: New rate constant (max): 0.057 hr-1 Half-life: 12.16 Hours Vd from levels: 39.12 Liters (0.7 L/kg) CLvanco=?? 2.230 L/hr Estimated New Dose and Interval Recommended dose: 895.8 mg Recommended interval: 16.9 Hrs Recommendations: Give Vancomycin 1000 mg q 18 hrs. Infuse over 2 hrs Expected Cpeak: 37.7 mcg/mL Expected Ctrough: 15.1 mcg/mL AUC 0-24 /TORO Data: TORO 0.5 mcg/mL:?? AUC/TORO:? 1195.8 TORO 1.0 mcg/mL:?? AUC/TORO:? 597.9
--- NOTE | 2023-12-10 09:27 | P.PN_ITS ---
Subjective Subjective Date: 12/10/23 Time: 08:00 Principal diagnosis: septic shock, anemia Interval history: Patient doing well this morning. Morning labs reviewed, CBC is pending. Heart rate has improved and is less than 100, blood pressure stable. Exam Data for Last 24 hours Vital signs and Labs for Last 24 Hours: Temp Pulse Resp BP Pulse Ox O2 Del Method O2 Flow Rate 98.5 F 99 H 25 H 113/52 L 99 Nasal Cannula 2 12/10/23 08:00 12/10/23 08:00 12/10/23 08:00 12/10/23 08:00 12/10/23 08:00 12/10/23 08:00 12/10/23 08:00 Laboratory Results - last 24 hr 12/07/23 20:36: Crossmatch (AHG) See Detail 12/10/23 07:20: Sodium 136, Potassium 3.8, Chloride 106, Carbon Dioxide 24, Anion Gap 9.8, BUN 13 D, Creatinine 0.70, Estimated Creat Clear 34, Estimated GFR 80, Est GFR ( Amer) 97, Glucose 91, Calcium 8.2 L, Vancomycin Trough 7.0 I & O for Last 24 hours: Intake & Output 12/07/23 12/08/23 12/09/23 12/10/23 23:59 23:59 23:59 23:59 Intake Total 0 / 0 2815.093 / 2815.093 2636 / 2636 270 / 270 Output Total 1310 / 1310 2735 / 2735 700 / 700 Balance 0 / 0 1505.093 / 1505.093 -99 / -99 -430 / -430 Weight 110 lb 4 oz 110 lb 4 oz 113 lb 12.8 oz 107 lb 12.897 oz Constitutional Constitutional: no acute distress *Routine Respiratory Exam Respiratory: Present CTA bilaterally and symmetric chest movement *Routine Cardiovascular Exam Cardiovascular: Present Normal S1 and Normal S2 Comments: Chronic A-fib *Routine Abdominal Exam Abdominal: Present soft and normoactive bowel sounds; Absent tenderness *Routine Extremities Exam Extremities: Present full ROM and normal capillary refill; Absent edema *Routine Skin Exam Skin: Present intact, dry and warm Detailed Neck Exam: Thyroids Thyroid: Absent bruit Progress Note: A&P Assessment and plan (1) Septic shock: Status: Acute (2) Acute anemia: Status: Acute (3) Chronic a-fib: Status: Acute (4) Peripheral arterial disease: Status: Acute (5) Leg wound, left: Status: Acute (6) Smoking greater than 30 pack years: Status: Acute (7) COPD mixed type: Status: Acute (8) Anxiety: Status: Acute (9) Presence of Watchman left atrial appendage closure device: Status: Chronic (10) Arteriosclerotic cardiovascular disease: Status: Chronic (11) Hypertension: Status: Chronic (12) Tobacco abuse: Status: Chronic Assessment and Plan Assessment and Plan for All Diagnoses:: Acute septic shock- Reslving wbc peaked at 20, elevated liver enzymes, lactic acid and alk phos, hypothermic and hypotensive on presentation Source unknown- consider ischemic bowel or abdominal source given hx of abdominal pain and extensive PAD. Cannot get ct abd/pelvis due to patient's inability to lay flat Does have a chronic wound to left knee currently undergoing debridement per Dr. Puente, no obvious signs of infection present currently on cefipime and vanc Will defer antibiotic selection and further management to primary service Acute anemia Hx of GI bleed previously requiring transfusion Hgb down to 7.7 on admission, previously was 11 one month ago No known source of bleed Recommend obtaining hemoccult Patient has a hx of GI bleed Recommend surgery consult for concern for GI bleed primary service has transfused one unit. Will defer further management to primary service 12/10/2023 update: cbc is pending Chronic afib s/p watchman's device Afib, bradycardia Rate noted to be in the 40s-50s upon arrival. Glucagon was given and patient was started on epi drip Off of epi drip x 2 days Patient is A-fib RVR rate 100 12/10/2023: Heart rate has improved to 100. Will increase diltiazem to 60 mg p.o. QID for better rate control. Patient cannot swallow extended release capsule. History of HFpEF Mildly to moderate dilated RV with mild reduction of RV function Severe biatrial dilation Moderate TR Elevated RVSP greater than 50-55 Echocardiogram 11/2023, repeat limited today no change Increase Lasix to 40 mg daily. No aldactone due to hyperkalemia on admission. No Jardiance due to recent UTI Acute myocardial injury in the setting of acute illness History of coronary artery disease Trop 0.11-0.07 Ekg without new acute changes Left heart cath 11/06/2023: Moderate obstructive disease without occluded vess els causing ST changes Continue Plavix 75 mg daily. Statin on hold due to liver enzymes. 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 Severe right renal artery stenosis successful stent to the right renal artery with 1 bare-metal stent. Given concern for possible GI bleed, will continue plavix only and add PPI Carotid artery stenosis-20 to 49% KALYAN, 20 to 49% LICA October 2020. Patient is status post right and left endarterectomy. History of right subclavian stent in 2018 History of celiac stenting 202112/10/2023 update: Patient doing well. Will increase diltiazem to 60 mg po QID and Lasix to 40mg daily. Cannot swallow pills so meds need to be crushed. Cardiac meds Plavix 75 mg p.o. daily Statin on hold due to elevated liver enzymes Diltiazem 60 mg p.o. 4 times daily Lasix 40 mg p.o. daily Metoprolol succinate ER 100 mg p.o. daily-on hold due to recent bradycardia Aldactone on hold due to hyperkalemia Protonix 40mg po daily
[2023-12-10] MEDS: BUSPIRONE HCL 5 MG TABLET PO ×2 (10:30→20:43)
[2023-12-10] MEDS: CEFEPIME HCL 2 GM in 0.9 % SODIUM CHLORIDE 100 ML IV ×2 (11:09→22:11)
[2023-12-10 12:12] LABS: Occult Blood,Stool Negative (Negative)
[2023-12-10] MEDS: DICYCLOMINE 10MG CAPSULE 20 MG PO ×2 (13:33→18:04)
[2023-12-10] MEDS: dilTIAZem 60MG TABLET 60 MG PO ×3 (13:33→20:42)
--- NOTE | 2023-12-10 13:44 | HMH.PTEV ---
Physical Therapy Evaluation Rehab PT IP Evaluation Start: 12/10/23 10:40 Freq: ONCE Status: Active Protocol: Document 12/10/23 13:40 VIOLA (Rec: 12/10/23 13:44 PHORNE Laptop) Subjective/History History History 83 yowf adm to [facility] with septic shock. PMH of COPD on baseline 2 L nasal cannula, hypertension, hyperlipidemia, CAD, A-fib status post Watchman procedure, arterial disease status post stenting earlier in November. She presents with wound to her L anterior knee upon admission. She reports she lives alone at baseline, but family has been caring for her over the past week after she was released from short term rehab facility . Subjective Subjective Pt c/o feeling very cold when out of bed and significant pain in her L knee. She does agree to get OOB to [facility] at this time. New diagnosis of cancer in past 12 No months? Rehab PT IP Eval Objective Appearance Patient Behavior Appropriate Patient Orientation Person,Place,Time Difficulty following instructions none Speech Pattern Clear Ambulation Patient Able to Ambulate Yes Ambulation Observation IP General Gait Pattern Observation Shuffling Step Ambulation Distance (feet) 3 Ambulation Assistive Device None Ambulation Ability Minimal x 2 (25% assist) Balance Ability to Arise Able, uses arms to help Sitting Balance Steady, safe Standing Balance Steady, wide stance Dynamic Sitting Balance Ability Good Dynamic Standing Balance Ability Poor Transfers Bed Transfer Ability Contact Guard/Hand Hold Chair Transfer Ability Minimal x 1 (25% assist) Sit to Stand Bed Transfer Ability Minimal x 1 (25% assist) Sit to Stand Chair Transfer Ability Minimal x 1 (25% assist) Rehab PT IP prob,goals,plan Problems Date of Evaluation: 12/10/23 PT IP Problems Bed Mobility,Transfers,Gait, Self care Rehab Potential Rehab Potential Good Plan PT Intervention Plan Bed Mobility,Transfers,Gait, Self care,Therapeutic Exercise PT Plan Frequency Daily Duration LOS Discharge Goals Bed Transfer Ability Supervision/Stand by Sit to Stand Chair Transfer Ability Contact Guard/Hand Hold Ambulation Assistive Device Rolling Walker Ambulation Distance (feet) 10 Discharge Plan PT Discharge Plan Pt is currently most appropriate for short term rehab placement once medically stable for d/c. Skilled therapy is necessary to return to prior level of function and prevent further debility, wounds, falls or injury. Eval Complexity Eval Charge Codes 82791 - High Complexity PHYSICIAN CERTIFICATION: I certify the specified therapy services for Suri Lagrange Banks are required, authorized, and reviewed every 30 days.
--- NOTE | 2023-12-10 13:50 | SW/DCPLANNER ---
Addendum entered by Molly Miller RN 12/23/23 12:17: [id number] Mallika called and requested help with placement for Ms. Banks. I will fax packet to [facility]. [facility] has no SNF beds at this time per Fernanda. Addendum entered by [facility] 12/12/23 13:01: Wendy w/ [facility] stated that services will begin Friday12/15/23 for this patient. Addendum entered by [facility] 12/12/23 09:34: Patient will be set up w/ [facility] at time of discharge. Addendum entered by [facility] 12/12/23 09:29: Patient/family have decided patient will discharge to her daughter's house (Latonya [phone] [place] [address]). Patient is established w/ [facility] and agreeable to home health services (no preference). Patient/family also stated they have all DME needed at home. Patient's family expressed an interest in taking her home today. I will follow up w/ Dr Puente. Addendum entered by [facility] 12/12/23 07:43: Kamla w/ [facility] is unable to accept this patient. I will continue to follow up w/ [facility], [place], [facility] and [facility]. Addendum entered by [facility] 12/11/23 13:36: Patient/family are agreeable for information to be faxed to [place], [facility], [facility], [facility] and [facility]. Information will be faxed today and I will continue to follow up w/ facilities. Addendum entered by [facility] 12/11/23 11:18: Terri w/ [facility] and Latonya w/ [facility] stated they are not able to accept patient at this time. I did have discussion w/ patient's family regarding other facilities. Patient/family will discuss discharge plans/other facilities and I will follow up. Dr Puente stated that patient will be ready for discharge soon. Original Note: CM spoke w/ this patient and her family regarding plans once medically stable for discharge. PT/OT evaluated patient and recommended SNF level of care. Patient is agreeable and prefers [facility] or [facility]. I will follow up w/ both facilities and patient once information is reviewed. Discharge date is unknown at this time.
--- NOTE | 2023-12-10 14:07 | HMH.OTEV ---
OT Inpatient Evaluation Rehab OT IP Evaluation Start: 12/10/23 10:40 Freq: ONCE Status: Active Protocol: Document 12/10/23 13:58 RMARSHALL (Rec: 12/10/23 14:06 RMARSHALL Laptop) Rehab OT IP Assessment Subjective History Pt oriented x2 on arrival. Pt agreeable to engage in therapy evaluation; family present during therapy evaluation. Pt admitted on 12/07/23 due to AMS, pain, weakness, and septic shock. History and physical report: Suri Banks is an 83-year-old female admitted through the ER . She returned home from [facility] 5 days ago. Has been declining since , with weakness, confusion, increased c/o pain. Past medical history COPD on baseline 2 L nasal cannula, hypertension, hyperlipidemia, CAD, A-fib status post Watchman procedure, arterial disease status post stenting earlier in November. She was admitted for 1 week followed by rehab placement at [facility] with discharge December 01. She is with rate controlled A- fib on exam but hypothermic to 95 degrees. She appears weak and hypotensive though she is alert and responsive, answering all questions appropriately. She is chronically ill- appearing, lung sounds are decreased bilaterally. Broad- spectrum antibiotics were initiated in the ER. Subjective I have already been asked this. Prior to being in the hospital she was back home after being at [facility] for short term rehab. Family members were staying with her 24/02 because she was requiring assistance with all ADLs and was dependent on family for completion of all IADLS. Pt was using a rolling walker during functional transfers. Objective Patient Orientation Person,Name Right Upper Extremity Gross ROM Min Limitation <25% Left Upper Extremity Gross ROM Min Limitation <25% Shoulder ROM Limitations Muscle Weakness Elbow ROM Limitations Muscle Weakness Wrist Limitations of Range of Motion Muscle Weakness Bed Mobility bed mobility-scooting Assist Level Minimal x 1 (25% assist) Transfer Training Sit/Stand/Step Transfer Assist Level Minimal x 1 (25% assist) Lower Body Dressing Ability Maximum Assistance Performing Toilet Hygiene Ability Unable/dependent Overall Commode/Toilet Transfer Ability Minimal Assistance Commode/Toilet Transfer Technique Stand Step Pivot Rehab OT IP prob,goals,plan Problems Date of Evaluation: 12/10/23 OT IP Problems Bed Mobility,Transfers,Balance ,Self care,Safety Rehab Potential Rehab Potential Good Equipment Needs Assistive Devices Rolling / Wheeled Walker Plan OT intervention Plan Bed Mobility,Transfers,Gait, Balance,Self care,Safety, Therapeutic Exercise OT Plan Frequency Daily Duration LOS Discharge Goals Bed Mobility Ability Standby Assistance Sit to Stand Chair Transfer Ability Supervision/Stand by Chair Transfer Ability Contact Guard/Hand Hold Chair Transfer Technique Sit to/from Ambulatory Chair Transfer Assistive Devices Rolling Walker Feeding Ability Assist with Tray Set Up Lower Body Dressing Ability Moderate Assistance Upper Body Dressing Ability Minimal Assistance Bathing Ability Moderate Assistance Performing Toilet Hygiene Ability Moderate Assistance Overall Commode/Toilet Transfer Ability Contact Guard,Minimal Assistance Commode/Toilet Transfer Technique Sit to/from Ambulatory Commode/Toilet Transfer Assistive Grab Bars Devices Decrease in Endurance Yes Discharge Plan OT Discharge Plan Pt will continue to be seen for OT services while at [facility]. Pt would benefit most from short term rehab at SNF following hospital stay. Continued skilled services are important for patient to improve strength, safety, endurance, ADL independence, and functional transfers to reach PLOF. Eval Complexity Eval Charge Codes 87678 - Moderate Complexity PHYSICIAN CERTIFICATION: I certify the specified therapy services for Suri Banks are required, authorized, and reviewed every 30 days.
--- NOTE | 2023-12-10 17:56 | PC.NURSE ---
Pt currently resting in bed. Has diuresed well this shift. Voids per [facility]. Has c/o some discomfort to abdomen. MD notified. New orders received and carried out. Call light within reach. Family at bedside.
[2023-12-10] MEDS: 0.9 % SODIUM CHLORIDE 1000ML 1,000 ML 50 ML IV (18:05)
[2023-12-10] MEDS: PANTOPRAZOLE 40MG VIAL 40 MG IV (20:42)
[2023-12-10] MEDS: VANCOMYCIN HCL 1,000 MG in 0.9 % SODIUM CHLORIDE 250 ML 125 MG IV (23:23)
[2023-12-11] VITALS (9 sets, daily range): BP systolic 104–144; BP diastolic 51–63; PULSE 68–110; RESP 16–36; TEMP 36.6–37; O2SAT 94–99; BMI 18.3
[2023-12-11] MEDS: DICYCLOMINE 10MG CAPSULE 20 MG PO ×2 (07:15→12:55)
--- NOTE | 2023-12-11 08:40 | P.PN_ITS ---
Subjective *Date: 12/11/23 *Time: 08:40 Interval history: Patient states her breathing is a little bit better today but she is upset because she has not been getting her night medication. She has not gotten her gabapentin at night or medication for anxiety. She has been unable to sleep due to this. She did eat a small amount of breakfast today. She has pain in her foot and her left knee. Medical Exam Vital signs and Labs for Last 24 Hours: Vital Signs Temp Pulse Pulse Resp BP Pulse Ox O2 Del Method 12/11/23 04:00 80 12/11/23 00:00 97.9 F 91 H 36 H 104/52 L 94 L Nasal Cannula 12/11/23 00:00 80 12/10/23 20:00 100 H 12/10/23 20:00 98.4 F 86 34 H 105/70 L 100 Nasal Cannula 12/10/23 20:00 92 H 100 Nasal Cannula 12/10/23 18:54 88 12/10/23 18:54 96 Nasal Cannula 12/10/23 18:51 Nasal Cannula 12/10/23 17:00 Nasal Cannula 12/10/23 16:00 110 H 12/10/23 16:00 98.8 F 120 H 36 H 114/52 L 94 L Nasal Cannula 12/10/23 15:00 Nasal Cannula 12/10/23 13:00 Nasal Cannula 12/10/23 12:15 97 H 12/10/23 12:15 102 H 12/10/23 12:00 90 12/10/23 12:00 97.8 F 94 H 22 125/51 L 100 Nasal Cannula 12/10/23 11:00 Nasal Cannula 12/10/23 09:00 Nasal Cannula O2 Flow Rate 12/11/23 04:00 12/11/23 00:00 2 12/11/23 00:00 12/10/23 20:00 12/10/23 20:00 2 12/10/23 20:00 2 12/10/23 18:54 12/10/23 18:54 2 12/10/23 18:51 12/10/23 17:00 12/10/23 16:00 12/10/23 16:00 2 12/10/23 15:00 2 12/10/23 13:00 2 12/10/23 12:15 12/10/23 12:15 12/10/23 12:00 12/10/23 12:00 2 12/10/23 11:00 2 12/10/23 09:00 2 Intake and Output 12/10/23 12/11/23 12/11/23 19:59 03:59 11:59 Intake Total 1190 / 1190 Output Total 1450 / 1650 0 / 1650 200 / 1650 Balance -260 / -460 0 / -460 -200 / -460 Intake: Intake, Oral Amount 390 / 390 Intake, Total IV Amount 800 / 800 0.9 % Sodium Chloride 1000ML 1, 550 / 550 000 ml @ 50 mls/hr IV .Q20H [facility] Rx#:[id number] Vancomycin HCl 750 mg In 0.9 % 250 / 250 Sodium Chloride 250 ml @ 125 mls/hr IV Q24H [facility] Rx#:[id number] Output: Output, Urine Amount 1450 / 1650 0 / 1650 200 / 1650 Other: Number of Unmeasured Voids 0 1 1 Number of Bowel Movements 1 2 Weight 107 lb 12.897 oz Patient Weight 12/11/23 11:59 Weight 107 lb 12.897 oz Laboratory Results - last 24 hr 12/10/23 11:20: Stool Occult Blood Negative I & O for Labs for Last 24 Hours: Intake & Output 12/08/23 12/09/23 12/10/23 12/11/23 11:59 11:59 11:59 11:59 Intake Total 1751 / 1751 2570.093 / 2570.093 1400 / 1400 1190 / 1190 Output Total 375 / 375 3070 / 3070 2075 / 2075 1650 / 1650 Balance 1376 / 1376 -499.907 / -499.907 -675 / -675 -460 / -460 Weight 110 lb 4 oz 113 lb 12.8 oz 107 lb 12.897 oz 107 lb 12.897 oz Microbiology Reports for the Last 24 Hours: Microbiology 12/07/23 20:36 Blood Blood Culture - Preliminary 12/07/23 20:36 Blood Blood Culture - Preliminary Constitutional: Present no acute distress Head: Present normocephalic Neck: Present normal inspection Respiratory: Present decreased breath sounds and CTA bilaterally Cardiac: Present Reg Rate and Rhythm GI: Present soft; Absent tenderness Extremities: Present edema (trace in left ankle) Comment:: Toes are improved. Dressing on the left knee is in place. Skin: Present intact Neuro: Present alert and oriented x 3 Comment:: She wants to go outside to smoke. Assessment and Plan *Assessment and plan (1) Septic shock: Status: Acute Category: Medical Code(s): A41.9 - Sepsis, unspecified organism; R65.21 - Severe sepsis with septic shock (2) Acute anemia: Status: Acute Category: Medical Code(s): D64.9 - Anemia, unspecified (3) Chronic a-fib: Status: Acute Category: Medical Code(s): I48.20 - Chronic atrial fibrillation, unspecified (4) Peripheral arterial disease: Status: Acute Category: Medical Code(s): I73.9 - Peripheral vascular disease, unspecified (5) Leg wound, left: Status: Acute Category: Medical Code(s): S81.802A - Unspecified open wound, left lower leg, initial encounter (6) Smoking greater than 30 pack years: Status: Acute Category: Social Hx Code(s): F17.210 - Nicotine dependence, cigarettes, uncomplicated (7) COPD mixed type: Status: Acute Category: Medical Code(s): J44.9 - Chronic obstructive pulmonary disease, unspecified (8) Anxiety: Status: Acute Category: Medical Code(s): F41.9 - Anxiety disorder, unspecified (9) Presence of Watchman left atrial appendage closure device: Status: Chronic Category: Medical Code(s): Z95.818 - Presence of other cardiac implants and grafts (10) Arteriosclerotic cardiovascular disease: Status: Chronic Category: Medical Code(s): I25.10 - Atherosclerotic heart disease of [place] coronary artery without angina pectoris (11) Hypertension: Status: Chronic Qualifiers: Hypertension type: essential hypertension Qualified Code(s): I10 - Essential (primary) hypertension Category: Medical Code(s): I10 - Essential (primary) hypertension (12) Tobacco abuse: Status: Chronic Category: Medical Code(s): Z72.0 - Tobacco use Plan Cardiology increased patient's diltiazem to 60 mg 4 times daily and increased her Lasix to 40 mg daily. Will recheck labs this morning. She can likely be moved out of stepdown. Will discuss further care with Dr. Puente.
[2023-12-11] MEDS: CLOPIDOGREL 75MG TAB 75 MG PO (09:08)
[2023-12-11] MEDS: BUSPIRONE HCL 5 MG TABLET PO ×2 (09:08→21:11)
[2023-12-11] MEDS: dilTIAZem 60MG TABLET 60 MG PO ×4 (09:08→21:12)
[2023-12-11] MEDS: FUROSEMIDE 40 MG TABLET PO (09:08)
[2023-12-11 09:42] LABS: Basophils % 0.3 % (0.1-2.0); Eosinophils % 0.3 % (0.1-12.0); Hematocrit 28.3 % (37.0-47.0); Hemoglobin 8.4 g/dL (12.2-16.2); Lymphocytes # 0.9 K/mm3 (0.7-4.5); Lymphocytes % 7.8 % (10-50); Mean Corpuscular HGB Conc 29.7 g/dL (31.8-35.4); Mean Corpuscular Hemoglobin 24.5 pg (27.0-31.2); Mean Corpuscular Volume 82.6 fl (81-99); Mean Platelet Volume 8.6 fl (7.4-10.4); Monocytes # 1.1 K/mm3 (0.1-1.0); Monocytes % 9.7 % (1.7-9.3); Neutrophils % 81.9 % (37.0-80.0); Platelet Count 242 K/mm3 (142-424); Red Blood Count 3.43 M/mm3 (4.20-5.40); Red Cell Distribution Width 18.7 % (11.5-17.5); White Blood Count 10.9 K/mm3 (4.8-10.8)
[2023-12-11 09:48] LABS: Alanine Aminotransferase 81 U/L (12-78); Albumin Level 2.9 g/dl (3.5-5.0); Albumin/Globulin Ratio 1.1 (1.1-1.8); Alkaline Phosphatase 149 U/L (38-126); Anion Gap 10.6 mEq/L (5-15); Aspartate Amino Transferase 25 U/L (14-36); Bilirubin,Total 0.6 mg/dl (0.2-1.3); Blood Urea Nitrogen 11 mg/dl (7-17); Calcium 8.5 mg/dl (8.4-10.2); Carbon Dioxide 28 mmol/L (22.0-30.0); Chloride 103 mmol/L (98-107); Creatinine Clearance Estimated 34 mL/min (50-200); Estimated Glomerular Filt Rate 80 ml/min (>60); GFR (African American) 97 ML/MIN (>60); Globulin 2.7 g/dL (1.3-3.2); Glucose 105 mg/dl (74-100); Potassium 3.6 mmoL/L (3.5-5.1); Sodium 138 mmol/L (136-145); Total Protein,Serum 5.6 g/dl (6.3-8.2)
[2023-12-11] MEDS: CEFEPIME HCL 2 GM in 0.9 % SODIUM CHLORIDE 100 ML IV ×2 (10:28→23:02)
[2023-12-11] MEDS: IPRATROPIUM/ALBUTEROL 3 ML NEB IH ×3 (11:40→23:17)
--- NOTE | 2023-12-11 12:36 | EXP.CARD.PN ---
Subjective Subjective Date: 12/11/23 Time: 07:45 Principal diagnosis: septic shock, anemia Interval history: Doing well this morning. Patient was able to eat a small amount of breakfast. Morning labs reviewed. Exam Data for Last 24 hours Vital signs and Labs for Last 24 Hours: Temp Pulse Resp BP Pulse Ox O2 Del Method O2 Flow Rate 98.3 F 91 H 18 144/54 H 99 Nasal Cannula 2 12/11/23 11:29 12/11/23 11:41 12/11/23 11:29 12/11/23 11:29 12/11/23 11:41 12/11/23 11:41 12/11/23 11:41 Laboratory Results - last 24 hr 12/11/23 09:18: WBC 10.9 H, RBC 3.43 L, Hgb 8.4 L, Hct 28.3 L, MCV 82.6, MCH 24.5 L, MCHC 29.7 L, RDW 18.7 H, Plt Count 242, MPV 8.6, Neut % (Auto) 81.9 H, Lymph % (Auto) 7.8 L, [place] % (Auto) 9.7 H, Eos % (Auto) 0.3, Baso % (Auto) 0.3, Neut # (Auto) 9.0 H, Lymph # (Auto) 0.9, [place] # (Auto) 1.1 H, Eos # (Auto) 0.0, Baso # (Auto) 0.0, Sodium 138, Potassium 3.6, Chloride 103, Carbon Dioxide 28, Anion Gap 10.6, BUN 11, Creatinine 0.70, Estimated Creat Clear 34, Estimated GFR 80, Est GFR ( Amer) 97, Glucose 105 H, Calcium 8.5, Total Bilirubin 0.6, AST 25 D, ALT 81 H D, Alkaline Phosphatase 149 H, Total Protein 5.6 L, Albumin 2.9 L, Globulin 2.7, Albumin/Globulin Ratio 1.1 I & O for Last 24 hours: Intake & Output 12/08/23 12/09/23 12/10/23 12/11/23 23:59 23:59 23:59 23:59 Intake Total 2815.093 / 2815.093 2636 / 2636 1460 / 1460 270 / 270 Output Total 1310 / 1310 2735 / 2735 2925 / 2925 1000 / 1000 Balance 1505.093 / 1505.093 -99 / -99 -1465 / -1465 -730 / -730 Weight 110 lb 4 oz 113 lb 12.8 oz 107 lb 12.897 oz 107 lb 12.897 oz Microbiology Reports for the Last 24 Hours: Microbiology 12/07/23 20:36 Blood Blood Culture - Preliminary 12/07/23 20:36 Blood Blood Culture - Preliminary Constitutional Constitutional: no acute distress *Routine Respiratory Exam Respiratory: Present CTA bilaterally and symmetric chest movement *Routine Cardiovascular Exam Cardiovascular: Present Normal S1 and Normal S2 Comments: Chronic A-fib *Routine Abdominal Exam Abdominal: Present soft and normoactive bowel sounds; Absent tenderness *Routine Extremities Exam Extremities: Present full ROM and normal capillary refill; Absent edema *Routine Skin Exam Skin: Present intact, dry and warm Detailed Neck Exam: Thyroids Thyroid: Absent bruit Progress Note: A&P Assessment and plan (1) Septic shock: Status: Acute (2) Acute anemia: Status: Acute (3) Chronic a-fib: Status: Acute (4) Peripheral arterial disease: Status: Acute (5) Leg wound, left: Status: Acute (6) Smoking greater than 30 pack years: Status: Acute (7) COPD mixed type: Status: Acute (8) Anxiety: Status: Acute (9) Presence of Watchman left atrial appendage closure device: Status: Chronic (10) Arteriosclerotic cardiovascular disease: Status: Chronic (11) Hypertension: Status: Chronic (12) Tobacco abuse: Status: Chronic Assessment and Plan Assessment and Plan for All Diagnoses:: Acute septic shock- Reslving Wbc peaked at 20, elevated liver enzymes, lactic acid and alk phos, hypothermic and hypotensive on presentation Source unknown- consider ischemic bowel or abdominal source given hx of abdominal pain and extensive PAD. Cannot get ct abd/pelvis due to patient's inability to lay flat Hasa chronic wound to left knee currently undergoing debridement per Dr. Puente, no obvious signs of infection present Treated with abx Will defer antibiotic selection and further management to primary service Acute anemia Hx of GI bleed previously requiring transfusion Hgb down to 7.7 on admission, previously was 11 one month ago No known source of bleed Recommend obtaining hemoccult Patient has a hx of GI bleed Recommend surgery consult for concern for GI bleed service has transfused one unit. Will defer further management to primary service 12/11/2023-HGB 8.4 Chronic afib s/p watchman's device Afib, bradycardia Rate noted to be in the 40s-50s upon arrival. Glucagon was given and patient was started on epi drip Off of epi drip x 2 days Patient is A-fib RVR rate 100 12/11/2023: Chronic afib noted in the 90s. Continue diltiazem to 60 mg p.o. QID for better rate control. Patient cannot swallow extended release capsule. History of HFpEF Mildly to moderate dilated RV with mild reduction of RV function Severe biatrial dilation Moderate TR Elevated RVSP greater than 50-55 Echocardiogram 11/2023, repeat limited today no change Continue Lasix 40 mg daily. No aldactone due to hyperkalemia on admission. No Jardiance due to recent UTI Acute myocardial injury in the setting of acute illness History of coronary artery disease Trop 0.11-0.07 Ekg without new acute changes Left heart cath 11/06/2023: Moderate obstructive disease without occluded vessels causing ST changes Continue Plavix 75 mg daily. Statin on hold due to liver enzymes. 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 Severe right renal artery stenosis successful stent to the right renal artery with 1 bare-metal stent. Given concern for possible GI bleed, will continue plavix only and add PPI Carotid artery stenosis-20 to 49% KALYAN, 20 to 49% LICA October 2020. Patient is status post right and left endarterectomy. History of right subclavian stent in 2018 History of celiac stenting 202112/11/2023 update: Patient doing well. Cardiology will sign off. Please continue below listed medications and have patient follow-up in cardiology clinic 1 week after discharge. Cardiac meds Plavix 75 mg p.o. daily Diltiazem 60 mg p.o. 4 times daily Lasix 40 mg p.o. daily Protonix 40mg po daily
[2023-12-11] MEDS: VANCOMYCIN HCL 1,000 MG in 0.9 % SODIUM CHLORIDE 250 ML 125 MG IV (17:50)
[2023-12-11] MEDS: GABAPENTIN 100MG CAPSULE 100 MG PO (21:11)
[2023-12-11] MEDS: METOPROLOL TARTRATE 50MG TABLET 50 MG PO (21:11)
[2023-12-11] MEDS: ALPRAZolam 0.25MG TABLET 0.25 MG PO (21:11)
[2023-12-11] MEDS: PANTOPRAZOLE 40MG VIAL 40 MG IV (21:12)
[2023-12-12] VITALS: BP 108/48; PULSE 50; PULSE 67; RESP 20; TEMP 37.2; O2SAT 96
[2023-12-12 04:00] VITALS: BP 129/58; PULSE 50; PULSE 89; RESP 18; TEMP 36.6; O2SAT 94; BMI 18.3
--- NOTE | 2023-12-12 05:19 | PC.NURSE ---
Pt is A&Ox4 and currently tolerating 2L o2 well. Pt has rested well this shift and has tolerated antibiotic therapy well. Pt denies needs at this time
[2023-12-12] MEDS: DICYCLOMINE 10MG CAPSULE 20 MG PO (06:06)
[2023-12-12] MEDS: 0.9 % SODIUM CHLORIDE 1000ML 1,000 ML 50 ML IV (06:06)
[2023-12-12 08:00] VITALS: BP 106/52; PULSE 90; RESP 17; TEMP 36.4
[2023-12-12 08:01] VITALS: PULSE 90
--- NOTE | 2023-12-12 08:23 | P.PN_ITS ---
Subjective *Date: 12/12/23 *Time: 08:23 Interval history: Patient states she is feeling about the same today. She states her shortness of breath is at baseline. She denies any pain other than in her knee and her toes. She slept a little bit better last night but did not feel like eating this morning. Medical Exam Vital signs and Labs for Last 24 Hours: Vital Signs Temp Pulse Pulse Resp BP Pulse Ox O2 Del Method 12/12/23 06:56 Nasal Cannula 12/12/23 04:59 Nasal Cannula 12/12/23 04:00 97.8 F 89 18 129/58 L 94 L Nasal Cannula 12/12/23 04:00 50 L 12/12/23 03:00 Nasal Cannula 12/12/23 01:00 Nasal Cannula 12/12/23 00:00 50 L 12/12/23 00:00 99.0 F 67 20 108/48 L 96 Nasal Cannula 12/11/23 23:18 110 H 12/11/23 23:18 110 H 12/11/23 23:00 Nasal Cannula 12/11/23 21:00 Nasal Cannula 12/11/23 20:00 100 H 12/11/23 20:00 110 H Nasal Cannula 12/11/23 20:00 98.6 F 85 18 122/54 L 99 Nasal Cannula 12/11/23 18:52 Nasal Cannula 12/11/23 18:32 Nasal Cannula 12/11/23 17:26 Nasal Cannula 12/11/23 16:11 105 H 12/11/23 16:00 98.0 F 102 H 16 108/51 L 98 Nasal Cannula 12/11/23 15:00 Nasal Cannula 12/11/23 13:00 Room Air 12/11/23 11:41 91 H 12/11/23 11:41 85 12/11/23 11:41 99 Nasal Cannula 12/11/23 11:29 98.3 F 89 18 144/54 H 98 Nasal Cannula 12/11/23 11:00 Nasal Cannula 12/11/23 09:00 Nasal Cannula 12/11/23 09:00 Nasal Cannula O2 Flow Rate 12/12/23 06:56 2 12/12/23 04:59 2 12/12/23 04:00 12/12/23 04:00 12/12/23 03:00 2 12/12/23 01:00 2 12/12/23 00:00 12/12/23 00:00 2 12/11/23 23:18 12/11/23 23:18 12/11/23 23:00 2 12/11/23 21:00 2 12/11/23 20:00 12/11/23 20:00 2 12/11/23 20:00 2 12/11/23 18:52 12/11/23 18:32 2 12/11/23 17:26 12/11/23 16:11 12/11/23 16:00 2 12/11/23 15:00 12/11/23 13:00 12/11/23 11:41 12/11/23 11:41 12/11/23 11:41 2 12/11/23 11:29 2 12/11/23 11:00 12/11/23 09:00 12/11/23 09:00 Intake and Output 12/11/23 12/12/23 12/12/23 19:59 03:59 11:59 Intake Total 135 / 495 360 / 495 Output Total 900 / 1200 300 / 1200 0 / 1200 Balance -765 / -705 60 / -705 0 / -705 Intake: Intake, Oral Amount 135 / 495 360 / 495 Output: Output, Urine Amount 900 / 1200 300 / 1200 0 / 1200 Other: Number of Unmeasured Voids 1 1 Weight 107 lb 12.897 oz Patient Weight 12/12/23 11:59 Weight 107 lb 12.897 oz Laboratory Results - last 24 hr 12/11/23 09:18: WBC 10.9 H, RBC 3.43 L, Hgb 8.4 L, Hct 28.3 L, MCV 82.6, MCH 24.5 L, MCHC 29.7 L, RDW 18.7 H, Plt Count 242, MPV 8.6, Neut % (Auto) 81.9 H, Lymph % (Auto) 7.8 L, [place] % (Auto) 9.7 H, Eos % (Auto) 0.3, Baso % (Auto) 0.3, Neut # (Auto) 9.0 H, Lymph # (Auto) 0.9, [place] # (Auto) 1.1 H, Eos # (Auto) 0.0, Baso # (Auto) 0.0, Sodium 138, Potassium 3.6, Chloride 103, Carbon Dioxide 28, Anion Gap 10.6, BUN 11, Creatinine 0.70, Estimated Creat Clear 34, Estimated GFR 80, Est GFR ( Amer) 97, Glucose 105 H, Calcium 8.5, Total Bilirubin 0.6, AST 25 D, ALT 81 H D, Alkaline Phosphatase 149 H, Total Protein 5.6 L, Albumin 2.9 L, Globulin 2.7, Albumin/Globulin Ratio 1.1 I & O for Labs for Last 24 Hours: Intake & Output 12/09/23 12/10/23 12/11/23 12/12/23 11:59 11:59 11:59 11:59 Intake Total 2570.093 / 2570.093 1400 / 1400 1460 / 1460 495 / 495 Output Total 3070 / 3070 2075 / 2075 2450 / 2450 1200 / 1200 Balance -499.907 / -499.907 -675 / -675 -990 / -990 -705 / -705 Weight 113 lb 12.8 oz 107 lb 12.897 oz 107 lb 12.897 oz 107 lb 12.897 oz Microbiology Reports for the Last 24 Hours: Microbiology 12/07/23 20:36 Blood Blood Culture - Preliminary 12/07/23 20:36 Blood Blood Culture - Preliminary Constitutional: Present no acute distress Head: Present normocephalic Neck: Present normal inspection Respiratory: Present decreased breath sounds and CTA bilaterally Cardiac: Present Reg Rate and Rhythm (rate has slowed) GI: Present soft; Absent tenderness Extremities: Present edema (trace in left ankle) Comment:: Toes are improved. Dressing on the left knee is in place. Skin: Present intact Neuro: Present alert and oriented x 3 Comment:: She wants to go outside to smoke. Assessment and Plan *Assessment and plan (1) Septic shock: Status: Acute Category: Medical Code(s): A41.9 - Sepsis, unspecified organism; R65.21 - Severe sepsis with septic shock (2) Acute anemia: Status: Acute Category: Medical Code(s): D64.9 - Anemia, unspecified (3) Chronic a-fib: Status: Acute Category: Medical Code(s): I48.20 - Chronic atrial fibrillation, unspecified (4) Peripheral arterial disease: Status: Acute Category: Medical Code(s): I73.9 - Peripheral vascular disease, unspecified (5) Leg wound, left: Status: Acute Category: Medical Code(s): S81.802A - Unspecified open wound, left lower leg, initial encounter (6) Smoking greater than 30 pack years: Status: Acute Category: Social Hx Code(s): F17.210 - Nicotine dependence, cigarettes, uncomplicated (7) COPD mixed type: Status: Acute Category: Medical Code(s): J44.9 - Chronic obstructive pulmonary disease, unspecified (8) Anxiety: Status: Acute Category: Medical Code(s): F41.9 - Anxiety disorder, unspecified (9) Presence of Watchman left atrial appendage closure device: Status: Chronic Category: Medical Code(s): Z95.818 - Presence of other cardiac implants and grafts (10) Arteriosclerotic cardiovascular disease: Status: Chronic Category: Medical Code(s): I25.10 - Atherosclerotic heart disease of [place] coronary artery without angina pectoris (11) Hypertension: Status: Chronic Qualifiers: Hypertension type: essential hypertension Qualified Code(s): I10 - Essential (primary) hypertension Category: Medical Code(s): I10 - Essential (primary) hypertension (12) Tobacco abuse: Status: Chronic Category: Medical Code(s): Z72.0 - Tobacco use Plan Apparently the patient has not been accepted to any facility at this point. Her family now has decided to take her home with home health. Cardiology wants her to f/u in their office after discharge.
--- NOTE | 2023-12-12 08:44 | P.PN_ITS ---
Subjective *Date: 12/12/23 *Time: 08:44 Medical Exam Vital signs and Labs for Last 24 Hours: Vital Signs Temp Pulse Pulse Resp BP Pulse Ox O2 Del Method 12/12/23 06:56 Nasal Cannula 12/12/23 04:59 Nasal Cannula 12/12/23 04:00 97.8 F 89 18 129/58 L 94 L Nasal Cannula 12/12/23 04:00 50 L 12/12/23 03:00 Nasal Cannula 12/12/23 01:00 Nasal Cannula 12/12/23 00:00 50 L 12/12/23 00:00 99.0 F 67 20 108/48 L 96 Nasal Cannula 12/11/23 23:18 110 H 12/11/23 23:18 110 H 12/11/23 23:00 Nasal Cannula 12/11/23 21:00 Nasal Cannula 12/11/23 20:00 100 H 12/11/23 20:00 110 H Nasal Cannula 12/11/23 20:00 98.6 F 85 18 122/54 L 99 Nasal Cannula 12/11/23 18:52 Nasal Cannula 12/11/23 18:32 Nasal Cannula 12/11/23 17:26 Nasal Cannula 12/11/23 16:11 105 H 12/11/23 16:00 98.0 F 102 H 16 108/51 L 98 Nasal Cannula 12/11/23 15:00 Nasal Cannula 12/11/23 13:00 Room Air 12/11/23 11:41 91 H 12/11/23 11:41 85 12/11/23 11:41 99 Nasal Cannula 12/11/23 11:29 98.3 F 89 18 144/54 H 98 Nasal Cannula 12/11/23 11:00 Nasal Cannula 12/11/23 09:00 Nasal Cannula 12/11/23 09:00 Nasal Cannula O2 Flow Rate 12/12/23 06:56 2 12/12/23 04:59 2 12/12/23 04:00 12/12/23 04:00 12/12/23 03:00 2 12/12/23 01:00 2 12/12/23 00:00 12/12/23 00:00 2 12/11/23 23:18 12/11/23 23:18 12/11/23 23:00 2 12/11/23 21:00 2 12/11/23 20:00 12/11/23 20:00 2 12/11/23 20:00 2 12/11/23 18:52 12/11/23 18:32 2 12/11/23 17:26 12/11/23 16:11 12/11/23 16:00 2 12/11/23 15:00 12/11/23 13:00 12/11/23 11:41 12/11/23 11:41 12/11/23 11:41 2 12/11/23 11:29 2 12/11/23 11:00 12/11/23 09:00 12/11/23 09:00 Intake and Output 12/11/23 12/12/23 12/12/23 23:59 07:59 15:59 Intake Total 360 / 360 Output Total 1200 / 2200 0 / 0 Balance -1200 / -1435 360 / 360 Intake: Intake, Oral Amount 360 / 360 Output: Output, Urine Amount 1200 / 2200 0 / 0 Other: Number of Unmeasured Voids 1 1 Weight 48.9 kg Patient Weight 12/12/23 23:59 Weight 48.9 kg Laboratory Results - last 24 hr 12/11/23 09:18: WBC 10.9 H, RBC 3.43 L, Hgb 8.4 L, Hct 28.3 L, MCV 82.6, MCH 24.5 L, MCHC 29.7 L, RDW 18.7 H, Plt Count 242, MPV 8.6, Neut % (Auto) 81.9 H, Lymph % (Auto) 7.8 L, [place] % (Auto) 9.7 H, Eos % (Auto) 0.3, Baso % (Auto) 0.3, Neut # (Auto) 9.0 H, Lymph # (Auto) 0.9, [place] # (Auto) 1.1 H, Eos # (Auto) 0.0, Baso # (Auto) 0.0, Sodium 138, Potassium 3.6, Chloride 103, Carbon Dioxide 28, Anion Gap 10.6, BUN 11, Creatinine 0.70, Estimated Creat Clear 34, Estimated GFR 80, Est GFR ( Amer) 97, Glucose 105 H, Calcium 8.5, Total Bilirubin 0.6, AST 25 D, ALT 81 H D, Alkaline Phosphatase 149 H, Total Protein 5.6 L, Albumin 2.9 L, Globulin 2.7, Albumin/Globulin Ratio 1.1 I & O for Labs for Last 24 Hours: Intake & Output 12/09/23 12/10/23 12/11/23 12/12/23 23:59 23:59 23:59 23:59 Intake Total 2636 / 2636 1460 / 1460 405 / 765 360 / 360 Output Total 2735 / 2735 2925 / 2925 2200 / 2200 0 / 0 Balance -99 / -99 -1465 / -1465 -1795 / -1435 360 / 360 Weight 51.619 kg 48.9 kg 48.9 kg 48.9 kg Microbiology Reports for the Last 24 Hours: Microbiology 12/07/23 20:36 Blood Blood Culture - Preliminary 12/07/23 20:36 Blood Blood Culture - Preliminary The patient's infection will respond to the chosen ABx?: Yes (BLOOD CULTURES NO GROWTH AT 24 HR, AFEBRILE OVER 24 HR, WHITE COUNT 10.9) Is the patient receiving the right drug, dose, and route?: Yes Could a more targeted ABx be ordered?: No
[2023-12-12] MEDS: dilTIAZem 60MG TABLET 60 MG PO (10:24)
[2023-12-12] MEDS: CLOPIDOGREL 75MG TAB 75 MG PO (10:24)
[2023-12-12] MEDS: FUROSEMIDE 40 MG TABLET PO (10:24)
[2023-12-12] MEDS: METOPROLOL TARTRATE 50MG TABLET 50 MG PO (10:24)
[2023-12-12] MEDS: CEFEPIME HCL 2 GM in 0.9 % SODIUM CHLORIDE 100 ML IV (10:25)
[2023-12-12] MEDS: BUSPIRONE HCL 5 MG TABLET PO (10:25)
[2023-12-12] MEDS: ALPRAZolam 0.25MG TABLET 0.25 MG PO (10:25)
[2023-12-12] MEDS: IPRATROPIUM/ALBUTEROL 3 ML NEB IH (11:01)
[2023-12-12 11:31] LABS: Basophils % 0.4 % (0.1-2.0); Chloride 100 mmol/L (98-107); Eosinophils # 0.1 K/mm3 (0.0-0.4); Eosinophils % 0.6 % (0.1-12.0); Hemoglobin 8.3 g/dL (12.2-16.2); Lymphocytes # 0.8 K/mm3 (0.7-4.5); Lymphocytes % 7.6 % (10-50); Mean Corpuscular HGB Conc 29.7 g/dL (31.8-35.4); Mean Corpuscular Hemoglobin 24.8 pg (27.0-31.2); Mean Corpuscular Volume 83.5 fl (81-99); Mean Platelet Volume 9.3 fl (7.4-10.4); Monocytes # 1.1 K/mm3 (0.1-1.0); Monocytes % 11.2 % (1.7-9.3); Neutrophils # 8.2 K/mm3 (1.8-7.8); Neutrophils % 80.2 % (37.0-80.0); Platelet Count 251 K/mm3 (142-424); Red Blood Count 3.35 M/mm3 (4.20-5.40); Red Cell Distribution Width 18.8 % (11.5-17.5); Sodium 134 mmol/L (136-145); White Blood Count 10.2 K/mm3 (4.8-10.8)
[2023-12-12 11:32] LABS: Potassium 3.5 mmoL/L (3.5-5.1)
[2023-12-12 11:34] LABS: Anion Gap 8.5 mEq/L (5-15); Blood Urea Nitrogen 12 mg/dl (7-17); Carbon Dioxide 29 mmol/L (22.0-30.0); Creatinine Clearance Estimated 34 mL/min (50-200); Estimated Glomerular Filt Rate 80 ml/min (>60); GFR (African American) 97 ML/MIN (>60)
[2023-12-12] MEDS: VANCOMYCIN HCL 1,000 MG in 0.9 % SODIUM CHLORIDE 250 ML 125 MG IV (11:34)
[2023-12-12 11:35] LABS: Calcium 8.4 mg/dl (8.4-10.2); Glucose 113 mg/dl (74-100)
[2023-12-12 11:39] LABS: Vancomycin,Trough 13.1 ug/mL (5.0-10.0)
[2023-12-12 12:00] VITALS: BP 105/63; PULSE 100; PULSE 86; RESP 17; TEMP 36.6; O2SAT 90
--- NOTE | 2023-12-16 12:44 | CARE MANAGER ---
Attempted to contact patient x 2 related to hospital discharge. Left VM message. ROGER Bryan
[2023-12-17 11:14] LABS: POC Glucose,Bedside 134 (70-110)
--- NOTE | 2023-12-22 23:54 | EXP.DC.SUM ---
General Admission date:: 12/07/23 Discharge date: 12/12/23 HPI HPI HPI: Suri Banks is an 83-year-old female admitted through the ER. She returned home from [facility] 5 days ago. Has been declining since, with weakness, confusion, increased c/o pain. Past medical history COPD on baseline 2 L nasal cannula, hypertension, hyperlipidemia, CAD, A-fib status post Watchman procedure, arterial disease status post stenting earlier in November. She was admitted for 1 week followed by rehab placement at [facility] with discharge December 01. She is with rate controlled A-fib on exam but hypothermic to 95 degrees. She appears weak and hypotensive though she is alert and responsive, answering all questions appropriately. She is chronically ill-appearing, lung sounds are decreased bilaterally. Broad-spectrum antibiotics were initiated in the ER. EKG shows rate controlled A-fib without acute ischemia or infarction. CBC shows anemia to 7.7, hematocrit of 26, white blood cell count is slightly elevated to 12.4. VBG without significant derangement with pH of 7.34 and pCO2 36 but notably with an elevated lactate to 4.6.CMP showing creatinine of 1.1 not significantly deranged though slightly hyperkalemic to 5.4. Procalcitonin negative, BNP is elevated to 5130, troponin slightly elevated to 0.11 likely consistent with age involving multisystem organ failure. Septic shock is a concern. It was judged in the ER that she would not tolerate CT scan at present. Levophed was initiated. Family accompanies the patient and they understand that she is critically ill. In the ER the patient stated that she would not want compressions, would not want a breathing tube. Patient did sign form at bedside. She was started on vancomycin and cefepime. The patient has a full thickness wound of the left knee which has been receiving weekly debridment in [place] by Dr. Puente. This is the leg that was recently stented by Dr. Floyd. Two toes of the left foot were recently debrided in the office as well. Hospital Course Hospital Course Hospital Course: The patient was started on IV fluids and IV antibiotics. A blood transfusion was ordered and she was started on Vapotherm to maintain oxygen saturation. She was also started on a Levophed drip. Dr. Puente did speak with Dr. Floyd regarding the bradycardia and he recommended a dose of glucagon and to switch to an epinephrine drip and discontinue her Levophed. Cardiology was consulted. She received 1 unit of packed red blood cells and her H&H increased. Her heart rate improved but she remained on the epinephrine drip. She had a limited echo which showed increased left ventricular wall thickness. There was normal global left ventricular systolic function with an LVEF of 55%. The right ventricle was mildly dilated with mild reduction in right ventricular function. There was severe biatrial dilatation. She was seen in consultation by cardiology and they continued Plavix only and added a PPI. Her epinephrine was discontinued and she was actually tachycardic on the morning of 12/09/2023. Diltiazem was reinitiated. Her Domingo was discontinued and she was encouraged to get up in a chair. Her white blood cell count normalized. Her H&H remained stable. Her diltiazem dose was increased to 60 mg 4 times daily and her Lasix was increased to 40 mg daily by cardiology. Cardiology wanted her to follow-up 1 week postdischarge. By 12/12/2023, her shortness of breath was at baseline. She denied any pain other than in her knee and her toes and she was able to sleep and eat. Her family decided to take her home with home health and she was stable to be discharged. She will follow-up with Dr. Puente in the office and cardiology on outpatient basis. Of note, her Hemoccult was negative. Exam Data for Last 24 hours Vital signs and Labs for Last 24 Hours: Temp Pulse Resp BP Pulse Ox O2 Del Method O2 Flow Rate 97.9 F 86 17 105/63 L 90 L Nasal Cannula 2 12/12/23 12:00 12/12/23 12:00 12/12/23 12:00 12/12/23 12:12/12/23 12:12/12/23 12:12/12/23 08:00 Narrative: Constitutional Constitutional: moderate distress (lethargic, but c/o generalized discomfort), cachectic and chronically ill appearing *Routine HEENT Exam Head: Present normocephalic Eye: Present PERRL ENT: Present mucous membranes dry *Routine Neck Exam Neck: Present full ROM; Absent meningismus Routine Chest/Breast/Axilla Exam Chest wall: Absent tenderness *Routine Respiratory Exam Respiratory: Present decreased breath sounds; Absent respiratory distress *Routine Cardiovascular Exam Cardiovascular: Present irregular rhythm *Routine Abdominal Exam Abdominal: Present soft; Absent tenderness or distended *Routine Rectal Exam Rectal:: deferred *Routine Genitalia Exam Genitalia:: deferred *Routine Extremities Exam Extremities: Present cyanosis; Absent edema Comments: dressing on wound of the left knee Routine Back/Spine/Pelvis Exam Back/Spine: Present kyphosis; Absent CVA tenderness *Routine Skin Exam Skin: Present wounds (left knee with full thickness wound 4 cm) *Routine Neurological Exam Neurological: Present oriented X3 and altered mental status (lethargic, but c/o pain) Routine Psychiatric Exam Psychiatric: Present unable to assess DS: Diagnosis Discharge Diagnosis (1) Septic shock: Status: Resolved Code(s): A41.9 - Sepsis, unspecified organism; R65.21 - Severe sepsis with septic shock (2) Acute anemia: Status: Acute Code(s): D64.9 - Anemia, unspecified (3) Chronic a-fib: Status: Acute Code(s): I48.20 - Chronic atrial fibrillation, unspecified (4) Peripheral arterial disease: Status: Acute Code(s): I73.9 - Peripheral vascular disease, unspecified (5) Leg wound, left: Status: Acute Code(s): S81.802A - Unspecified open wound, left lower leg, initial encounter (6) Smoking greater than 30 pack years: Status: Acute Code(s): F17.210 - Nicotine dependence, cigarettes, uncomplicated (7) COPD mixed type: Status: Acute Code(s): J44.9 - Chronic obstructive pulmonary disease, unspecified (8) Anxiety: Status: Acute Code(s): F41.9 - Anxiety disorder, unspecified (9) Presence of Watchman left atrial appendage closure device: Status: Chronic Code(s): Z95.818 - Presence of other cardiac implants and grafts (10) Arteriosclerotic cardiovascular disease: Status: Chronic Code(s): I25.10 - Atherosclerotic heart disease of [place] coronary artery without angina pectoris (11) Hypertension: Status: Chronic Code(s): I10 - Essential (primary) hypertension Qualifiers: Hypertension type: essential hypertension Qualified Code(s): I10 - Essential (primary) hypertension (12) Tobacco abuse: Status: Chronic Code(s): Z72.0 - Tobacco use Meds Home Medications and Allergies Home Medications Medication Instructions Recorded Confirmed Type gabapentin 100 mg capsule 100 mg PO HS 04/21/19 12/07/23 History atorvastatin 10 mg tablet 10 mg PO Q48H 05/05/19 12/07/23 History aspirin 81 mg tablet,delayed 81 mg PO DAILY 07/26/19 12/07/23 History release acetaminophen 650 mg 650 mg PO BID 11/13/20 12/07/23 History tablet,extended release buspirone 10 mg tablet 10 mg PO TID 11/13/20 12/07/23 History furosemide 20 mg tablet 20 mg PO DAILY 09/11/21 12/07/23 History potassium chloride 10 mEq 10 meq PO BID 02/26/23 12/07/23 History capsule,extended release dicyclomine 20 mg tablet 20 mg PO QIDP PRN Stomach cramps 07/17/23 12/08/23 History fluticasone propionate 50 50 mcg intranasal BIDP PRN 07/17/23 12/07/23 History mcg/actuation nasal Allergic Symptoms spray,suspension (Flonase Allergy Relief) pantoprazole 40 mg tablet,delayed 40 mg PO DAILYP PRN Acid Reflux 11/06/23 12/07/23 History release spironolactone 25 mg tablet 25 mg PO DAILY 11/06/23 12/07/23 History tiotropium bromide 2.5 2 puff inhalation DAILY 11/06/23 12/07/23 History mcg/actuation mist for inhalation (Spiriva Respimat) alprazolam 0.25 mg tablet 0.25 mg PO BID #60 tabs 12/12/23 Rx diltiazem HCl 60 mg tablet 60 mg PO QID #120 tabs 12/12/23 Rx metoprolol tartrate 50 mg tablet 50 mg PO BID #61 tabs 12/12/23 Rx nicotine 14 mg/24 hr daily 14 mg transdermal DAILYP PRN 12/12/23 Rx transdermal patch Nicotine Cravings #28 ea clopidogrel 75 mg tablet 75 mg PO DAILY #90 tabs 12/22/23 Rx New Prescriptions to Start Prescriptions: alprazolam Nazanin Puente diltiazem HCl Nazanin Puente metoprolol tartrate Nazanin Puente nicotine Nazanin Puente Allergies Allergy/AdvReac Type Severity Reaction Status Date / Time beef derived (bovine) Allergy Unknown Verified 10/02/23 13:38 allergy reaction chocolate flavor Allergy Verified 12/10/23 13:03 lactose Allergy Unknown Verified 10/02/23 13:38 allergy reaction Penicillins Allergy Unknown Verified 10/02/23 13:38 allergy reaction Sulfa (Sulfonamide Allergy Verified 10/02/23 13:38 Antibiotics) Discharge Plan Disposition Patient Disposition: Home Health Service Condition: Critical Discharge Order Discharge Orders: Discharge Order (Routine); Ordered 12/12/23 Ordered By: Nazanin Puente Follow up Plan Follow up with: Nazanin Puente MD [Primary Care Provider] - 12/19/23 9:15 am Prescriptions/Medication Reconciliation: New nicotine 14 mg/24 hr Patch 24 Hour 14 mg transdermal DAILYP PRN (Reason: Nicotine Cravings) Qty: 28 2RF alprazolam 0.25 mg Tablet 0.25 mg PO BID Qty: 60 0RF metoprolol tartrate 50 mg Tablet 50 mg PO BID Qty: 61 3RF diltiazem HCl 60 mg Tablet 60 mg PO QID Qty: 120 0RF Continued potassium chloride 10 mEq capsule, extended release 10 meq PO BID furosemide 20 mg tablet 20 mg PO DAILY gabapentin 100 MG capsule 100 mg PO HS atorvastatin 10 mg tablet 10 mg PO Q48H dicyclomine 20 mg tablet 20 mg PO QIDP PRN (Reason: Stomach cramps) Patient Comments: TAKE 1 TABLET BY MOUTH 4 TIMES DAILY NEEDED fluticasone propionate [Flonase Allergy Relief] 50 mcg/actuation [place],Suspension 50 mcg INTRANASAL BIDP PRN (Reason: Allergic Symptoms) Spiriva Respimat 2.5 mcg/actuation mist 2 puff inhalation DAILY Patient Comments: INHALE 2 SPRAY(S) BY MOUTH ONCE DAILY spironolactone 25 mg tablet 25 mg PO DAILY pantoprazole 40 mg tablet,delayed release (DR/EC) 40 mg PO DAILYP PRN (Reason: Acid Reflux) aspirin 81 MG tablet,delayed release (DR/EC) 81 mg PO DAILY acetaminophen 650 MG tablet extended release 650 mg PO BID buspirone 10 MG tablet 10 mg PO TID Discontinued metoprolol succinate 50 mg tablet extended release 24 hr 100 mg PO DAILY diltiazem HCl 180 MG capsule,ext.rel 24h degradable 180 mg PO DAILY Patient Comments: TAKE 1 CAPSULE BY MOUTH ONCE DAILY No Action clopidogrel 75 mg tablet 75 mg PO DAILY Qty: 90 2RF Patient Comments: TAKE 1 TABLET BY MOUTH ONCE DAILY FOR BLOOD THINNER Problem Reconciliation Problems Reviewed?: Yes Patient Discharge Instructions ACTIVITY: Continue current activity DIET: advance to your usual diet Patient Instructions: Septic Shock, DI for Atrial Fibrillation, Nicotine Transdermal Patch, Metoprolol, Alprazolam, Diltiazem, Catheter-Associated Urinary Tract Infection Providers Primary Care Provider: Nazanin Puente Admit Provider: Nazanin Puente Attending Provider: Nazanin Puente
== END 2023-12-12 13:45 | disposition home health service (06) | DRG 871 ==
LOC: ER 19:22 → 2ND 20:41
PROVIDERS: Family Medicine; Physician Assistant; Admitting Provider Family Medicine; Emergency Provider Emergency Medicine; PCP Family Medicine; Visit Provider Family Medicine
DX: A41.9 Sepsis, unspecified organism (principal); R65.21 Severe sepsis with septic shock; I48.20 Chronic atrial fibrillation, unspecified; I50.32 Chronic diastolic (congestive) heart failure; D64.9 Anemia, unspecified; J44.9 Chronic obstructive pulmonary disease, unspecified; Z99.81 Dependence on supplemental oxygen; I35.1 Nonrheumatic aortic (valve) insufficiency; I25.10 Atherosclerotic heart disease of native coronary artery without angina pectoris; I27.20 Pulmonary hypertension, unspecified; Z87.891 Personal history of nicotine dependence; S81.802A Unspecified open wound, left lower leg, initial encounter; I11.0 Hypertensive heart disease with heart failure; I07.1 Rheumatic tricuspid insufficiency; I73.9 Peripheral vascular disease, unspecified; Z86.73 Personal history of transient ischemic attack (TIA), and cerebral infarction without residual deficits; I25.2 Old myocardial infarction; Z79.01 Long term (current) use of anticoagulants; E78.5 Hyperlipidemia, unspecified; F41.9 Anxiety disorder, unspecified; F17.210 Nicotine dependence, cigarettes, uncomplicated
CPT/HCPCS: 36415; 71045; 80048; 80053; 80202; 81001; 82272; 82803; 82962; 83605; 83880; 84145; 84484; 85007; 85014; 85018; 85025; 85610; 85730; 86850; 87040; 93005; 93308; 94640; 94761; 97116; 97163; 97166; 97530; 99291; G0328; J0692; J1610; J3370; P9016

== ENCOUNTER 2023-12-30 11:32 | Outpatient (CLI) | payer MEDICARE, SELFPAY ==
[2023-12-30 11:45] VITALS: BMI 19.2
[2023-12-30 11:55] VITALS: BP 98/59; PULSE 58; RESP 16; TEMP 36.4; O2SAT 91
[2023-12-30 12:22] LABS: Hematocrit 29.3 % (37.0-47.0); Hemoglobin 8.4 g/dL (12.2-16.2)
[2023-12-30 12:35] VITALS: BP 95/62; PULSE 59; RESP 18; O2SAT 92
[2023-12-30] MEDS: ONDANSETRON 4MG/2ML VIAL 4 MG IV (13:07)
[2023-12-30 13:10] LABS: VBG Base Excess -17.3 mmol/L (-2.4-2.3); VBG HCO3 10.7 mmol/L (23-30); VBG Oxygen Saturation 73.1 % (50-70); VBG PCO2 27.5 mmol/L (35-51); VBG PH 7.21 mmol/L (7.31-7.41); VBG PO2 49.9 mmol/L (28-40); VBG Total CO2 11.5 mmol/L (23-27)
[2023-12-30 13:14] LABS: Lactate Venous 12.2 mmol/L (0.4-2.0)
[2023-12-30 13:15] LABS: Basophils # 0.1 K/mm3 (0-0.2); Basophils % 0.2 % (0.1-2.0); Eosinophils % 0.1 % (0.1-12.0); Hematocrit 29.4 % (37.0-47.0); Hemoglobin 8.4 g/dL (12.2-16.2); Lymphocytes # 1.3 K/mm3 (0.7-4.5); Lymphocytes % 5.6 % (10-50); Mean Corpuscular HGB Conc 28.5 g/dL (31.8-35.4); Mean Corpuscular Hemoglobin 23.8 pg (27.0-31.2); Mean Corpuscular Volume 83.5 fl (81-99); Mean Platelet Volume 8.7 fl (7.4-10.4); Monocytes # 1.2 K/mm3 (0.1-1.0); Neutrophils # 20.8 K/mm3 (1.8-7.8); Neutrophils % 89.1 % (37.0-80.0); Platelet Count 489 K/mm3 (142-424); Red Blood Count 3.52 M/mm3 (4.20-5.40); Red Cell Distribution Width 17.6 % (11.5-17.5); White Blood Count 23.4 K/mm3 (4.8-10.8)
[2023-12-30 13:17] LABS: MANUAL DIFFERENTIAL MANUAL DIFFERENTIAL (MANUAL DIFF)
[2023-12-30 14:05] LABS: Chloride 102 mmol/L (98-107); Sodium 135 mmol/L (136-145)
[2023-12-30 14:08] LABS: Albumin Level 3.4 g/dl (3.5-5.0); Albumin/Globulin Ratio 1.3 (1.1-1.8); Alkaline Phosphatase 347 U/L (38-126); Anion Gap 26.2 mEq/L (5-15); Bilirubin,Total 1.2 mg/dl (0.2-1.3); Blood Urea Nitrogen 34 mg/dl (7-17); Calcium 9.4 mg/dl (8.4-10.2); Carbon Dioxide 14 mmol/L (22.0-30.0); Creatinine Clearance Estimated 15 mL/min (50-200); Estimated Glomerular Filt Rate 21 ml/min (>60); GFR (African American) 26 ML/MIN (>60); Globulin 2.7 g/dL (1.3-3.2); Glucose 58 mg/dl (74-100); Total Protein,Serum 6.1 g/dl (6.3-8.2)
[2023-12-30 14:15] LABS: Hypochromasia 1+; Lymphocytes % 14 % (10-50); Monocytes % 4 % (2-9); Neutrophils % 82 % (42-76); Platelet Estimate Slight Increase; Total Cells Counted 100
[2023-12-30 14:21] LABS: Potassium 7.2 mmoL/L (3.5-5.1)
[2023-12-30 15:11] LABS: Alanine Aminotransferase 906 U/L (12-78); Aspartate Amino Transferase 1008 U/L (14-36)
[2023-12-30 17:14] LABS: Reflex Lactic Add Lactic Reflex
--- NOTE | 2023-12-30 17:27 | PC.NURSE ---
1325 Informed patient TIEN Gil ordered for her to be transferred to ED for further evaluation based on lab results, decreased O2 sats and complaints of abdominal pain; patient verbalizes understanding. Patient's daughter also spoke with TIEN Gil who explained situation to her and need for transfer for ED for further evaluation. Patient transferred from hospital bed to stretcher per staff/patient responding to and speaking with staff. BP 98/59, resp 22, O2 sat 89% on 4 lpm per NC, temp 97.4. Another daughter present at this time as well. Both daughters proceeded to ED area ahead of patient transfer. Patient transported via stretcher to ED department with O2 at 4lpm per NC in use per ROGER Shane and Elvis.RNA. Patient talking with staff during transfer/resp unlabored. 1328 Arrived to ED and awaiting open bay. 1330 Patient with decreased respirations/apnea/becoming less responsive to staff/roomed in [place] [facility] with ED staff/MD immediately to patient bedside/evaluation and care initiated/report to ED staff/MD.
== END 2023-12-30 23:59 | disposition home or self-care (01) ==
LOC: INF 11:34
PROVIDERS: Nurse Practitioner Family; PCP Family Medicine; Visit Provider Family Medicine
DX: D50.8 Other iron deficiency anemias (principal)
CPT/HCPCS: 36415; 80053; 82803; 85007; 85014; 85018; 85025; 86850; 96374; J2405

== ENCOUNTER 2023-12-30 13:34 | Emergency (ER) | payer MEDICARE, SELFPAY ==
[2023-12-30] VITALS (10 sets, daily range): BP systolic 109–134; BP diastolic 49–62; PULSE 58–95; RESP 12–22; TEMP 36.7; O2SAT 92–95; BMI 20.1; BMI 23.8
--- NOTE | 2023-12-30 13:39 | PC.NURSE ---
Family at bedside, Dr. Hernandez discussing care and plan with them
[2023-12-30] MEDS: MORPHINE 4MG/ML SYRINGE 4 MG IV (13:47)
--- NOTE | 2023-12-30 13:47 | PC.NURSE ---
Patient arrived to the ER via stretcher x 2 infusion staff members. Began to have agonal breathing. Immediately notified MD.Per MD 2gm of Calcium given at 1335, defib pads in place. Patient being bagged by respiratory. Fluids going in bilateral IVs. Family brought to bedside and decided to make patient comfort measures. Patient placed on nasal cannula.
[2023-12-30] MEDS: 0.9 % SODIUM CHLORIDE 1000ML 1,000 ML 999 ML IV (13:48)
[2023-12-30] MEDS: LACTATED RINGERS 1000ML 1,000 ML 999 ML IV (13:48)
[2023-12-30] MEDS: CALCIUM CHLORIDE 1GM/10ML SYRINGE (CRASH CART) 2 GM IVP (13:49)
[2023-12-30] MEDS: GLYCOPYRROLATE 0.2 MG/ML 1ML VIAL 0.200000000000000011 MG IV ×2 (13:50→16:56)
--- NOTE | 2023-12-30 14:20 | PC.NURSE ---
Called Peri Bansal, left voicemail, to obtain a hospice consult for home
--- NOTE | 2023-12-30 14:31 | SW/DCPLANNER ---
Addendum entered by Peri Bansal 12/30/23 15:34: Jolynn cox/ [facility] will be onsite to evaluate this patient. I have updated ED staff. Original Note: Per ED request patient information has been faxed to Jolynn cox/ [facility]. I will follow up w/ Jolynn once information is reviewed.
--- NOTE | 2023-12-30 15:54 | HMH.EDGENADL ---
Discharge Plan Disposition Patient Disposition: Hospice - Medical Facility Condition: Critical Prescriptions Prescriptions: No Action potassium chloride 10 mEq capsule, extended release 10 meq PO BID furosemide 20 mg tablet 20 mg PO DAILY clopidogrel 75 mg tablet 75 mg PO DAILY Qty: 90 2RF Patient Comments: TAKE 1 TABLET BY MOUTH ONCE DAILY FOR BLOOD THINNER gabapentin 100 MG capsule 100 mg PO HS atorvastatin 10 mg tablet 10 mg PO Q48H dicyclomine 20 mg tablet 20 mg PO QIDP PRN (Reason: Stomach cramps) Patient Comments: TAKE 1 TABLET BY MOUTH 4 TIMES DAILY NEEDED fluticasone propionate [Flonase Allergy Relief] 50 mcg/actuation [place],Suspension 50 mcg INTRANASAL BIDP PRN (Reason: Allergic Symptoms) Spiriva Respimat 2.5 mcg/actuation mist 2 puff inhalation DAILY Patient Comments: INHALE 2 SPRAY(S) BY MOUTH ONCE DAILY spironolactone 25 mg tablet 25 mg PO DAILY pantoprazole 40 mg tablet,delayed release (DR/EC) 40 mg PO DAILYP PRN (Reason: Acid Reflux) nicotine 14 mg/24 hr Patch 24 Hour 14 mg transdermal DAILYP PRN (Reason: Nicotine Cravings) Qty: 28 2RF alprazolam 0.25 mg Tablet 0.25 mg PO BID Qty: 60 0RF metoprolol tartrate 50 mg Tablet 50 mg PO BID Qty: 61 3RF diltiazem HCl 60 mg Tablet 60 mg PO QID Qty: 120 0RF aspirin 81 MG tablet,delayed release (DR/EC) 81 mg PO DAILY acetaminophen 650 MG tablet extended release 650 mg PO BID buspirone 10 MG tablet 10 mg PO TID Referrals Follow up/Referrals: Nazanin Puente MD [Primary Care Provider] - See instructions Clinical Impressions Clinical Impression: Acute hypoxemic respiratory failure, AMS (altered mental status), KANE (acute kidney injury), Shock, Acidosis, lactic, Injury of liver Instructions Patient Instructions: DI for Altered Mental Status Discharge ED Provider: Stanford Nieto General Adult HPI <Fernanda Hernandez DO - Last Filed: 12/30/23 16:02> General Chief complaint: Altered Mental Status Stated complaint: From infusion, Lactic 12, VS unstable Time Seen by Provider: 12/30/23 13:44 Mode of Arrival: Wheelchair Limitations: Patient unresponsive Description of Symptoms (Recalled from ER Triage Doc. by RN): Patient brought to ER via stretcher from infusion. [facility] she presented to their department for labs and a blood transfusion. When bloodwork resulted staff spoke with the patient's PCP who stated to bring her to the ER for further workup. Upon arrival to the ER patient became unresponsive with agonal breathing. History of Present Illness HPI narrative: This patient is an 83-year-old female with a history of chronic atrial fibrillation, tobacco dependence, COPD, aortic insufficiency, atherosclerotic disease, anxiety, hypertension, hyperlipidemia, and chronic pain presenting to the emergency department from infusion [place]. Patient was scheduled for a blood transfusion for anemia. Once upstairs, they had obtain labs which were very concerning. Per infusion center staff, her white blood cell count was 23.4, she was significantly acidotic with a lactic acid of 12.2, and her potassium was elevated at 7.2. I reviewed labs were obtained and noted that her creatinine is also significantly elevated to 2.2 from a baseline of 0.7. She also had evidence of significant liver injury with liver enzymes in the 1000's. Per the infusion staff, and route to the emergency department, patient had an acute change in her mental status and respiratory status. She had initially been verbally responsive, however she then had changed to agonal respirations. Patient does not contribute to history given acuity of condition upon arrival to the ED. Related Data Home Medications Medication Instructions Recorded Confirmed gabapentin 100 mg capsule 100 mg PO HS 04/21/19 12/24/23 atorvastatin 10 mg tablet 10 mg PO Q48H 05/05/19 12/24/23 aspirin 81 mg tablet,delayed 81 mg PO DAILY 07/26/19 12/24/23 release acetaminophen 650 mg 650 mg PO BID 11/13/20 12/24/23 tablet,extended release buspirone 10 mg tablet 10 mg PO TID 11/13/20 12/24/23 furosemide 20 mg tablet 20 mg PO DAILY 09/11/21 12/24/23 potassium chloride 10 mEq 10 meq PO BID 02/26/23 12/24/23 capsule,extended release dicyclomine 20 mg tablet 20 mg PO QIDP PRN Stomach cramps 07/17/23 12/24/23 fluticasone propionate 50 50 mcg intranasal BIDP PRN 07/17/23 12/24/23 mcg/actuation nasal Allergic Symptoms spray,suspension (Flonase Allergy Relief) pantoprazole 40 mg tablet,delayed 40 mg PO DAILYP PRN Acid Reflux 11/06/23 12/24/23 release spironolactone 25 mg tablet 25 mg PO DAILY 11/06/23 12/24/23 tiotropium bromide 2.5 2 puff inhalation DAILY 11/06/23 12/24/23 mcg/actuation mist for inhalation (Spiriva Respimat) Previous Rx's Medication Instructions Recorded alprazolam 0.25 mg tablet 0.25 mg PO BID #60 tabs 12/12/23 diltiazem HCl 60 mg tablet 60 mg PO QID #120 tabs 12/12/23 metoprolol tartrate 50 mg tablet 50 mg PO BID #61 tabs 12/12/23 nicotine 14 mg/24 hr daily 14 mg transdermal DAILYP PRN 12/12/23 transdermal patch Nicotine Cravings #28 ea clopidogrel 75 mg tablet 75 mg PO DAILY #90 tabs 12/22/23 Allergies Allergy/AdvReac Type Severity Reaction Status Date / Time beef derived (bovine) Allergy Unknown Verified 12/30/23 13:02 allergy reaction chocolate flavor Allergy Verified 12/30/23 13:02 lactose Allergy Unknown Verified 12/30/23 13:02 allergy reaction Penicillins Allergy Unknown Verified 12/30/23 13:02 allergy reaction Sulfa (Sulfonamide Allergy Verified 12/30/23 13:02 Antibiotics) [facility] <Fernanda Hernandez DO - Last Filed: 12/30/23 16:02> [facility] Disclaimer: The information contained in this section may have been updated after the patient was seen, as this information can be updated by other users. Medical History Abnormal EKG Urinary retention Acute UTI Periorbital ecchymosis of left eye Atrial fibrillation Renal artery stenosis Abnormal ankle brachial index (ZORA) Peripheral arterial disease Smoking greater than 30 pack years COPD mixed type Pleural effusion Syncope Hypokalemia COPD exacerbation Fall at home Pulmonary edema Adverse effect of antiplatelet agent Acute lower gastrointestinal bleeding Ischemic bowel disease Diarrhea Epigastric pain Chest pain Gastroesophageal reflux disease Presence of Watchman left atrial appendage closure device Angina, class II Aortic insufficiency Elevated troponin TIA (transient ischemic attack) Rapid atrial fibrillation Atrial fibrillation with RVR Anxiety Dyspnea Bilateral carotid artery stenosis Stress reaction Palpitations Blood loss anemia Abdominal pain Apical variant hypertrophic cardiomyopathy Burning with urination Constipation 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 Paroxysmal atrial fibrillation CAD (coronary artery disease) New onset a-fib Carotid artery stenosis Pulmonary HTN Diastolic dysfunction Subclavian artery stenosis, right Hyperlipidemia Hypertension NSTEMI (non-ST elevated myocardial infarction) Anxiety disorder Tobacco abuse Arteriosclerotic cardiovascular disease Surgical History History of colonoscopy History of right heart catheterization (RHC) History of appendectomy History of cholecystectomy History of hysterectomy Status post carotid endarterectomy Family History Other Cancer Coronary artery disease Diabetes Family history of diabetes mellitus type II Family history of myocardial infarction Hypertension Stroke Social History Smoking Status: Unknown if ever smoked alcohol intake: never substance use type: denies use current occupational status: retired Travel in the last 8 weeks: None household members: none housing: house lives independently: Yes marital status: single education level: middle school service: No caffeine: No special fanny needs: No agree to transfusion: No do you feel safe at home: Yes victim of physical abuse: No victim of emotional abuse: No victim of sexual abuse: No would you like helpful sources: No <Fernanda Hernandez DO - Last Filed: 12/30/23 16:02> ROS Obtained: Yes All systems reviewed & no additional complaints except as documented Physical Exam <Fernanda Hernandez DO - Last Filed: 12/30/23 16:02> General General appearance: obtunded and in distress Comment: Agonal respirations. Pale, very ill-appearing Head Head exam: atraumatic and normocephalic Eye Eye exam: Present PERRL ENT ENT exam: Present mucous membranes dry and normal external ear exam Neck Neck exam: Present normal inspection and trachea midline Chest Chest inspection: Present normal inspection and symmetric chest wall rise; Absent tenderness Respiratory Respiratory exam: Present respiratory distress and other (Agonal respirations) Cardiovascular Cardiovascular exam: Present regular rate and normal rhythm Abdominal Exam Abdominal exam: Present soft; Absent distention or guarding Extremities Exam Extremities exam: Present normal inspection; Absent normal capillary refill (Delayed) or edema Back Exam Back exam: Present normal inspection Neurological Exam Neurological exam: Present motor sensory deficit Expanded Neurological Exam Coma scale eye opening: None Coma scale motor response: Abnormal flexion Coma scale verbal response: None Coma scale total: 5 Skin Skin exam: Present cyanosis (Peripheral) and pallor <Stanford Nieto MD - Last Filed: 12/30/23 17:35> Expanded Neurological Exam Coma scale total: 5 Medical Decision Making <Fernanda Hernandez DO - Last Filed: 12/30/23 16:02> Medical Records Medical records reviewed: Yes I reviewed the patient's medical records. Jorge Inquiry Pt receiving controlled substance: No Vital Signs: 12/30/23 13:42 12/30/23 13:52 12/30/23 14:00 Pulse Rate 66 80 Pulse Rate [Radial] 70 Respiratory Rate 22 12 16 Blood Pressure 134/60 118/61 Blood Pressure [Right Arm] 134/60 Blood Pressure Mean Blood Pressure Mean [Right Arm] 84 Blood Pressure Source [Right Arm] Automatic Cuff Blood Pressure Position [Right Arm] Supine 02 Sat by Pulse Oximetry 92 L 93 L 95 Oxygen Delivery Method Nasal Cannula Oxygen Flow Rate (LPM) 4 12/30/23 14:30 12/30/23 15:01 12/30/23 15:30 Pulse Rate 60 95 H 69 Pulse Rate [Radial] Respiratory Rate 15 13 14 Blood Pressure 112/59 L 109/49 L 109/57 L Blood Pressure [Right Arm] Blood Pressure Mean Blood Pressure Mean [Right Arm] Blood Pressure Source [Right Arm] Blood Pressure Position [Right Arm] 02 Sat by Pulse Oximetry 95 Oxygen Delivery Method Oxygen Flow Rate (LPM) 12/30/23 16:00 12/30/23 16:30 12/30/23 17:00 Pulse Rate Pulse Rate [Radial] Respiratory Rate 13 12 12 Blood Pressure 115/54 L 114/53 L 113/62 Blood Pressure [Right Arm] Blood Pressure Mean 74 78 71 Blood Pressure Mean [Right Arm] Blood Pressure Source [Right Arm] Blood Pressure Position [Right Arm] 02 Sat by Pulse Oximetry Oxygen Delivery Method Oxygen Flow Rate (LPM) Lab Data Lab results reviewed: Yes I reviewed the patient's lab results. Orders (Tests/Meds): ED MEDICATIONS Discontinued Medications Generic Name Dose Route Start Last Admin Trade Name Freq PRN Reason Stop Dose Admin Calcium Chloride 2 gm 12/30/23 13:39 12/30/23 13:49 Calcium Chloride 1gm/10ml Syringe (Crash Cart) IVP 12/30/23 13:40 2 gm ONCE ONE Administration Glycopyrrolate 0.2 mg 12/30/23 13:50 12/30/23 13:50 Glycopyrrolate 0.2 Mg/Ml 1ml Vial IV 12/30/23 13:51 0.2 mg ONCE ONE Administration Glycopyrrolate 0.2 mg 12/30/23 16:41 12/30/23 16:56 Glycopyrrolate 0.2 Mg/Ml 1ml Vial IV 12/30/23 16:42 0.2 mg ONCE ONE Administration Hydromorphone HCl 0.5 mg 12/30/23 16:41 12/30/23 16:56 Hydromorphone 2mg/Ml Syringe IV 12/30/23 16:42 0.5 mg ONCE ONE Administration Lactated Ringer's 1,000 mls @ 999 mls/hr 12/30/23 13:39 12/30/23 13:48 Lactated Ringer's 1000 Ml Bag IV 12/30/23 14:39 999 mls/hr .Q1H1M ONE Administration Sodium Chloride 1,000 mls @ 999 mls/hr 12/30/23 13:39 12/30/23 13:48 Sod Chlor 0.9% 1000ml Bag IV 12/30/23 14:39 999 mls/hr .Q1H1M ONE Administration Midazolam HCl 2 mg 12/30/23 16:41 12/30/23 16:56 Midazolam 2mg/2ml Vial IV 12/30/23 16:42 2 mg ONCE ONE Administration Morphine Sulfate 4 mg 12/30/23 13:46 12/30/23 13:47 Morphine 4mg/Ml Syringe IV 12/30/23 13:47 4 mg ONCE ONE Administration Medical Decision Narrative: In summary, this patient is a 83-year-old female presenting to the Emergency Department for evaluation of critical illness, abnormal labs, and acute mental status change [facility]. Differential diagnoses considered include but are not limited to sepsis, septic shock, respiratory failure, multiorgan system dysfunction, KANE, CVA, ACS. Ruling out the most morbid conditions drove assessment. It should be noted patient's history includes aortic insufficiency, tobacco use, COPD, atrial fibrillation, anemia, hypertension, and hyperlipidemia which are likely not at goal therapy. This complicates all aspects of care by increasing patient's risk for morbidity. I reviewed patient's past medical records and noted previous evaluations for respiratory failure, anemia, and lower GI bleed. Patient arrives in acute distress with agonal respirations and significantly abnormal labs that were obtained in infusion center. Family was on the way to the ED when patient first arrived. I was prepping for intubation given the patient's respiratory status and inability to protect her airway. Immediately, 2 L of IV fluids were pressure bagged in, as initial blood pressure was hypotensive with systolics in the 60s. This did significant improve the patient's blood pressure. [id number] ventilation was used to assess the patient's respiratory status given her agonal respirations. This did improve her O2 saturations to the 90s. She was given 2 g of calcium gluconate given her hyperkalemia. Family arrived to the ED, including the patient's son who is medical POA. He advises that he has spoken with other family, including her other son who has POA, and they would not want to put her through intubation. They state that the patient has been in so much pain lately that they do not feel that it would be beneficial to her. They feel that it would be against her wishes to intubate her and put her on life support given her current condition. All family that is present is in agreement with this. Given this, they would like to proceed with comfort care and hospice evaluation. Patient was given 4 of IV morphine to make sure that she is comfortable and does not experience air hunger given that we are not going to be giving her [id number] ventilations any further. She also was given glycopyrrolate to help control secretions. We initiated discussions with care management/hospice to see if we can get an ED consult/evaluation. Patient maintained stable blood pressure and heart rate, the variable oxygen saturation while on 4 L nasal cannula and awaiting hospice evaluation. Patient care signed to the oncoming provider, Dr. Nieto, pending hospice evaluation. <Stanford Nieto MD - Last Filed: 12/30/23 17:35> Vital Signs: 12/30/23 13:42 12/30/23 13:52 12/30/23 14:00 Pulse Rate 66 80 Pulse Rate [Radial] 70 Respiratory Rate 22 12 16 Blood Pressure 134/60 118/61 Blood Pressure [Right Arm] 134/60 Blood Pressure Mean Blood Pressure Mean [Right Arm] 84 Blood Pressure Source [Right Arm] Automatic Cuff Blood Pressure Position [Right Arm] Supine 02 Sat by Pulse Oximetry 92 L 93 L 95 Oxygen Delivery Method Nasal Cannula Oxygen Flow Rate (LPM) 4 12/30/23 14:30 12/30/23 15:01 12/30/23 15:30 Pulse Rate 60 95 H 69 Pulse Rate [Radial] Respiratory Rate 15 13 14 Blood Pressure 112/59 L 109/49 L 109/57 L Blood Pressure [Right Arm] Blood Pressure Mean Blood Pressure Mean [Right Arm] Blood Pressure Source [Right Arm] Blood Pressure Position [Right Arm] 02 Sat by Pulse Oximetry 95 Oxygen Delivery Method Oxygen Flow Rate (LPM) 12/30/23 16:00 12/30/23 16:30 12/30/23 17:00 Pulse Rate Pulse Rate [Radial] Respiratory Rate 13 12 12 Blood Pressure 115/54 L 114/53 L 113/62 Blood Pressure [Right Arm] Blood Pressure Mean 74 78 71 Blood Pressure Mean [Right Arm] Blood Pressure Source [Right Arm] Blood Pressure Position [Right Arm] 02 Sat by Pulse Oximetry Oxygen Delivery Method Oxygen Flow Rate (LPM) Orders (Tests/Meds): ED MEDICATIONS Discontinued Medications Generic Name Dose Route Start Last Admin Trade Name Freq PRN Reason Stop Dose Admin Calcium Chloride 2 gm 12/30/23 13:39 12/30/23 13:49 Calcium Chloride 1gm/10ml Syringe (Crash Cart) IVP 12/30/23 13:40 2 gm ONCE ONE Administration Glycopyrrolate 0.2 mg 12/30/23 13:50 12/30/23 13:50 Glycopyrrolate 0.2 Mg/Ml 1ml Vial IV 12/30/23 13:51 0.2 mg ONCE ONE Administration Glycopyrrolate 0.2 mg 12/30/23 16:41 12/30/23 16:56 Glycopyrrolate 0.2 Mg/Ml 1ml Vial IV 12/30/23 16:42 0.2 mg ONCE ONE Administration Hydromorphone HCl 0.5 mg 12/30/23 16:41 12/30/23 16:56 Hydromorphone 2mg/Ml Syringe IV 12/30/23 16:42 0.5 mg ONCE ONE Administration Lactated Ringer's 1,000 mls @ 999 mls/hr 12/30/23 13:39 12/30/23 13:48 Lactated Ringer's 1000 Ml Bag IV 12/30/23 14:39 999 mls/hr .Q1H1M ONE Administration Sodium Chloride 1,000 mls @ 999 mls/hr 12/30/23 13:39 12/30/23 13:48 Sod Chlor 0.9% 1000ml Bag IV 12/30/23 14:39 999 mls/hr .Q1H1M ONE Administration Midazolam HCl 2 mg 12/30/23 16:41 12/30/23 16:56 Midazolam 2mg/2ml Vial IV 12/30/23 16:42 2 mg ONCE ONE Administration Morphine Sulfate 4 mg 12/30/23 13:46 12/30/23 13:47 Morphine 4mg/Ml Syringe IV 12/30/23 13:47 4 mg ONCE ONE Administration Medical Decision Narrative: In summary, this patient is a 83-year-old female presenting to the Emergency Department for evaluation of critical illness, abnormal labs, and acute mental status change open infusion center. Differential diagnoses considered include but are not limited to sepsis, septic shock, respiratory failure, multiorgan system dysfunction, KANE, CVA, ACS. Ruling out the most morbid conditions drove assessment. It should be noted patient's history includes aortic insufficiency, tobacco use, COPD, atrial fibrillation, anemia, hypertension, and hyperlipidemia which are likely not at goal therapy. This complicates all aspects of care by increasing patient's risk for morbidity. I reviewed patient's past medical records and noted previous evaluations for respiratory failure, anemia, and lower GI bleed. Patient arrives in acute distress with agonal respirations and significantly abnormal labs that were obtained in infusion center. Family was on the way to the ED when patient first arrived. I was prepping for intubation given the patient's respiratory status and inability to protect her airway. Immediately, 2 L of IV fluids were pressure bagged in, as initial blood pressure was hypotensive with systolics in the 60s. This did significant improve the patient's blood pressure. [id number] ventilation was used to assess the patient's respiratory status given her agonal respirations. This did improve her O2 saturations to the 90s. She was given 2 g of calcium gluconate given her hyperkalemia. Family arrived to the ED, including the patient's son who is medical POA. He advises that he has spoken with other family, including her other son who has POA, and they would not want to put her through intubation. They state that the patient has been in so much pain lately that they do not feel that it would be beneficial to her. They feel that it would be against her wishes to intubate her and put her on life support given her current condition. All family that is present is in agreement with this. Given this, they would like to proceed with comfort care and hospice evaluation. Patient was given 4 of IV morphine to make sure that she is comfortable and does not experience air hunger given that we are not going to be giving her [id number] ventilations any further. She also was given glycopyrrolate to help control secretions. We initiated discussions with care management/hospice to see if we can get an ED consult/evaluation. Patient maintained stable blood pressure and heart rate, the variable oxygen saturation while on 4 L nasal cannula and awaiting hospice evaluation. Patient care signed to the oncoming provider, Dr. Nieto, pending hospice evaluation. Gerson: I assumed primary responsibility for this patient after signout from previous physician. I have very little to do with patient's care. Hospice saw patient, recommended outpatient hospice, I feel this is agreeable. Additional dose of [place], Versed, Dilaudid given here in the emergency department. Because patient at baseline without signs or symptoms of clinical decompensation, deemed appropriate for discharge. Results were relayed to patient family who voiced understanding and were agreeable to outpatient management and follow up. I discussed my clinical impression with patient family and answered all questions. At this time, the evidence for any other entities in the differential is insufficient to warrant any further testing or ED observation. This was explained as well. Advisory was given that persistent or worsening symptoms require further evaluation. I confirmed the understanding of this discussion. Critical Care <Fernanda Hernandez, DO - Last Filed: 12/30/23 16:02> Critical Care Time Critical Care Time: Yes Attestation: On 12/30/23, the high probability of a clinically significant, sudden or life threatening deterioration of the following system(s) required my full and direct attention, intervention and personal management. The time I documented below is in addition to time spent performing reported procedures but includes the following listed in this critical care notation. Total Time Total Critical Care Time: 40
--- NOTE | 2023-12-30 16:13 | PC.NURSE ---
hospice nurse at bedside
[2023-12-30] MEDS: MIDAZOLAM 2MG/2ML VIAL 2 MG IV (16:56)
[2023-12-30] MEDS: HYDROMORPHONE 2MG/ML SYRINGE 0.5 MG IV (16:56)
--- NOTE | 2023-12-30 17:09 | PC.NURSE ---
Jolynn with Hospice has accepted pt into their care. She called Emily to update them on pt being accepted into their program. She will arrange med orders with this facility.
--- NOTE | 2023-12-30 17:16 | PC.NURSE ---
[facility] aware on pt transport back to [facility]
--- NOTE | 2023-12-30 18:01 | PC.NURSE ---
obtained EMS DNR form
== END 2023-12-30 18:57 | disposition hospice, inpatient (51) ==
PROVIDERS: Emergency Provider Emergency Medicine; PCP Family Medicine
DX: J96.01 Acute respiratory failure with hypoxia (principal); E87.29 Other acidosis; R74.02 Elevation of levels of lactic acid dehydrogenase [LDH]; R57.9 Shock, unspecified; K72.00 Acute and subacute hepatic failure without coma; N17.9 Acute kidney failure, unspecified; R41.82 Altered mental status, unspecified; J44.9 Chronic obstructive pulmonary disease, unspecified; I48.0 Paroxysmal atrial fibrillation; I73.9 Peripheral vascular disease, unspecified; K21.9 Gastro-esophageal reflux disease without esophagitis; I11.9 Hypertensive heart disease without heart failure; I25.119 Atherosclerotic heart disease of native coronary artery with unspecified angina pectoris; I65.29 Occlusion and stenosis of unspecified carotid artery; F17.210 Nicotine dependence, cigarettes, uncomplicated; Z95.818 Presence of other cardiac implants and grafts; Z79.01 Long term (current) use of anticoagulants
CPT/HCPCS: 36415; 80053; 82803; 85007; 85014; 85018; 85025; 86850; 96361; 96374; 96375; 96376; 99291; J2405; J7120